=== PATIENT | female | born 1950 | race Caucasian/White ===

== ENCOUNTER 2022-12-21 08:34 | Outpatient (OUT) | payer MEDICARE, OTHER, SELFPAY ==
[2022-12-21 09:27] LABS: Basophils Percent Auto 0.4 % (0.2-2.0); Eosinophils Absolute Auto 0.5 10^3/uL (0.0-0.7); Eosinophils Percent Auto 6.6 % (0.9-7.0); Hematocrit 36.4 % (36.0-48.0); Hemoglobin 10.9 g/dL (12.0-16.0); Immature Granulocytes Abs Auto 0.02 10^3/uL (0.00-0.03); Immature Granulocytes Pct Auto 0.3 % (0.0-0.5); Lymphocytes Absolute Auto 2.6 10^3/uL (1.2-3.8); Lymphocytes Percent Auto 33.1 % (20.5-60.0); Mean Corpuscular HGB Conc 29.9 g/dL (29.9-35.2); Mean Corpuscular Hemoglobin 25.7 pg (26.7-34.0); Mean Corpuscular Volume 85.8 fL (81.0-99.0); Mean Platelet Volume 9.3 fL (9.5-13.5); Monocytes Absolute Auto 0.7 10^3/uL (0.3-0.8); Monocytes Percent Auto 9.1 % (1.7-12.0); Neutrophils Percent Auto 50.5 % (43.0-75.0); Platelet Count 426 10^3/uL (150-450); Red Blood Count 4.24 10^6/uL (4.20-5.40); Red Cell Distribution Width 16.4 % (11.0-15.0); White Blood Count 7.9 10^3/uL (4.0-11.0)
[2022-12-21 10:49] LABS: Microalbumin Urine Random <1.3 mg/dL (<=30.0)
[2022-12-21 10:49] LABS: Estimated Average Glucose 123 mg/dL; Glycohemoglobin A1C 5.9 % (4.5-6.2)
[2022-12-21 11:06] LABS: Free T4 0.81 ng/dL (0.76-1.46)
[2022-12-21 14:36] LABS: Alanine Aminotransferase 33 U/L (14-59); Albumin Level 3.6 g/dL (3.4-5.0); Alkaline Phosphatase 90 U/L (46-116); Anion Gap 12.6; Aspartate Amino Transferase 16 U/L (15-37); BUN Creatinine Ratio 13.4; Bilirubin Total 0.2 mg/dL (0.2-1.0); Calcium 8.6 mg/dL (8.5-10.1); Carbon Dioxide 27.5 mmol/L (21.0-32.0); Chloride 105 mmol/L (98-107); Chol HDL Ratio 2.3; Cholesterol 148 mg/dL (<=200); Estimated GFR (African America >60 (>=60); Estimated GFR (Non-African Ame >60 (>=60); Free T3 2.51 pg/mL (2.18-3.98); Globulin 3.5 g/dL; Glucose 109 mg/dL (74-106); HDL Cholesterol 64 mg/dL (40-60); Potassium 4.1 mmol/L (3.5-5.1); Sodium 141 mmol/L (136-145); Thyroid Stimulating Hormone 0.056 uIU/mL (0.358-3.740); Total Protein 7.1 g/dL (6.4-8.2); Triglycerides 62 mg/dL (<=150); VLDL CHOLESTEROL 12.4 mg/dL
== END 2022-12-21 08:35 ==
PROVIDERS: PCP Internal Medicine; Visit Provider Internal Medicine
DX: E89.0 Postprocedural hypothyroidism (principal); E11.3211 Type 2 diabetes mellitus with mild nonproliferative diabetic retinopathy with macular edema, right eye; E78.00 Pure hypercholesterolemia, unspecified
CPT/HCPCS: 36415; 80053; 80061; 82043; 83036; 84439; 84443; 84481; 85025

== ENCOUNTER 2023-06-26 08:07 | Outpatient (OUT) | payer MEDICARE, OTHER, SELFPAY ==
[2023-06-26 09:32] LABS: Percent Iron Saturation 22.5 %
[2023-06-26 09:41] LABS: TSH W/ REFLEX FT4 0.107 (0.358-3.740)
[2023-06-26 11:06] LABS: Free T4 1.17 ng/dL (0.76-1.46)
[2023-06-27 04:07] LABS: Transferrin 255 mg/dL (192-364); Triiodothyronine (T3) 192 ng/dL (71-180)
== END 2023-06-26 08:08 | disposition home or self-care (01) ==
LOC: LAB 08:08
PROVIDERS: PCP Internal Medicine
DX: D64.9 Anemia, unspecified (principal)
CPT/HCPCS: 36415; 82306; 82607; 83540; 83550; 84439; 84443; 84466; 84480

== ENCOUNTER 2023-06-26 08:09 | Outpatient (OUT) | payer MEDICARE, OTHER, SELFPAY ==
[2023-06-26 08:31] LABS: Basophils Percent Auto 0.5 % (0.2-2.0); Eosinophils Absolute Auto 0.5 10^3/uL (0.0-0.7); Eosinophils Percent Auto 6.9 % (0.9-7.0); Hematocrit 40.5 % (36.0-48.0); Hemoglobin 12.7 g/dL (12.0-16.0); Immature Granulocytes Abs Auto 0.02 10^3/uL (0.00-0.03); Immature Granulocytes Pct Auto 0.3 % (0.0-0.5); Lymphocytes Absolute Auto 2.8 10^3/uL (1.2-3.8); Lymphocytes Percent Auto 37.8 % (20.5-60.0); Mean Corpuscular HGB Conc 31.4 g/dL (29.9-35.2); Mean Corpuscular Hemoglobin 29.9 pg (26.7-34.0); Mean Corpuscular Volume 95.3 fL (81.0-99.0); Monocytes Absolute Auto 0.7 10^3/uL (0.3-0.8); Monocytes Percent Auto 8.7 % (1.7-12.0); Neutrophils Absolute Auto 3.4 10^3/uL (1.4-6.5); Neutrophils Percent Auto 45.8 % (43.0-75.0); Platelet Count 334 10^3/uL (150-450); Red Blood Count 4.25 10^6/uL (4.20-5.40); Red Cell Distribution Width 14.7 % (11.0-15.0); White Blood Count 7.4 10^3/uL (4.0-11.0)
[2023-06-26 09:24] LABS: Estimated Average Glucose 126 mg/dL
[2023-06-26 09:30] LABS: Creatinine Urine Random 54.94 mg/dL (20.00-300.00); Microalbumin Urine Random <1.3 mg/dL (<=30.0)
[2023-06-26 09:30] LABS: Alanine Aminotransferase 29 U/L (14-59); Albumin Globulin Ratio 1.1; Albumin Level 3.6 g/dL (3.4-5.0); Alkaline Phosphatase 65 U/L (46-116); Anion Gap 10.9; Aspartate Amino Transferase 18 U/L (15-37); Bilirubin Total 0.6 mg/dL (0.2-1.0); Calcium 8.9 mg/dL (8.5-10.1); Carbon Dioxide 29.8 mmol/L (21.0-32.0); Chloride 101 mmol/L (98-107); Chol HDL Ratio 2.2; Cholesterol 132 mg/dL (<=200); Estimated GFR (African America >60 (>=60); Estimated GFR (Non-African Ame >60 (>=60); Globulin 3.2 g/dL; Glucose 85 mg/dL (74-106); HDL Cholesterol 61 mg/dL (40-60); Potassium 3.7 mmol/L (3.5-5.1); Sodium 138 mmol/L (136-145); Total Protein 6.8 g/dL (6.4-8.2); Triglycerides 57 mg/dL (<=150); VLDL CHOLESTEROL 11.4 mg/dL
== END 2023-06-26 08:10 | disposition home or self-care (01) ==
LOC: LAB 08:09
PROVIDERS: PCP Internal Medicine; Visit Provider Internal Medicine
DX: D64.9 Anemia, unspecified (principal); E11.618 Type 2 diabetes mellitus with other diabetic arthropathy; D50.0 Iron deficiency anemia secondary to blood loss (chronic)
CPT/HCPCS: 36415; 80053; 80061; 82043; 82306; 82570; 82607; 82728; 83036; 83540; 83550; 84439; 84443; 84466; 84480; 85025

== ENCOUNTER 2023-10-31 09:52 | Outpatient (OUT) | payer MEDICARE, SELFPAY ==
[2023-10-31 10:30] LABS: Basophils Absolute Auto 0.1 10^3/uL (0.0-0.1); Basophils Percent Auto 0.6 % (0.2-2.0); Eosinophils Absolute Auto 1.3 10^3/uL (0.0-0.7); Eosinophils Percent Auto 15.7 % (0.9-7.0); Hematocrit 42.7 % (36.0-48.0); Hemoglobin 13.3 g/dL (12.0-16.0); Immature Granulocytes Abs Auto 0.03 10^3/uL (0.00-0.03); Immature Granulocytes Pct Auto 0.4 % (0.0-0.5); Lymphocytes Absolute Auto 2.6 10^3/uL (1.2-3.8); Lymphocytes Percent Auto 31.9 % (20.5-60.0); Mean Corpuscular HGB Conc 31.1 g/dL (29.9-35.2); Mean Corpuscular Hemoglobin 30.7 pg (26.7-34.0); Mean Corpuscular Volume 98.6 fL (81.0-99.0); Mean Platelet Volume 9.1 fL (9.5-13.5); Monocytes Absolute Auto 0.6 10^3/uL (0.3-0.8); Monocytes Percent Auto 7.3 % (1.7-12.0); Neutrophils Absolute Auto 3.6 10^3/uL (1.4-6.5); Neutrophils Percent Auto 44.1 % (43.0-75.0); Platelet Count 329 10^3/uL (150-450); Red Blood Count 4.33 10^6/uL (4.20-5.40); Red Cell Distribution Width 13.4 % (11.0-15.0); White Blood Count 8.2 10^3/uL (4.0-11.0)
[2023-10-31 11:48] LABS: Estimated Average Glucose 114 mg/dL; Glycohemoglobin A1C 5.6 % (4.5-6.2)
[2023-10-31 12:07] LABS: Creatinine Urine Random 105.02 mg/dL (20.00-300.00); Microalbum Creatinine Ratio Ur 15.2 mg/g (0.0-29.9); Microalbumin Urine Random 1.6 mg/dL (<=30.0)
[2023-10-31 12:08] LABS: Free T4 1.05 ng/dL (0.76-1.46)
[2023-10-31 12:17] LABS: Alanine Aminotransferase 23 U/L (14-59); Albumin Globulin Ratio 1.1; Albumin Level 3.4 g/dL (3.4-5.0); Alkaline Phosphatase 76 U/L (46-116); Anion Gap 10.3; Aspartate Amino Transferase 14 U/L (15-37); BUN Creatinine Ratio 10.8; Bilirubin Total 0.5 mg/dL (0.2-1.0); Calcium 9.1 mg/dL (8.5-10.1); Carbon Dioxide 31.2 mmol/L (21.0-32.0); Chloride 107 mmol/L (98-107); Chol HDL Ratio 2.4; Cholesterol 151 mg/dL (<=200); Estimated GFR (African America >60 (>=60); Estimated GFR (Non-African Ame >60 (>=60); Free T3 2.59 pg/mL (2.18-3.98); Globulin 3.2 g/dL; Glucose 91 mg/dL (74-106); HDL Cholesterol 64 mg/dL (40-60); Potassium 4.5 mmol/L (3.5-5.1); Sodium 144 mmol/L (136-145); Thyroid Stimulating Hormone 0.169 uIU/mL (0.358-3.740); Total Protein 6.6 g/dL (6.4-8.2); Triglycerides 78 mg/dL (<=150); VLDL CHOLESTEROL 15.6 mg/dL
== END 2023-10-31 09:53 | disposition home or self-care (01) ==
LOC: LAB 09:55
PROVIDERS: PCP Internal Medicine; Visit Provider Internal Medicine
DX: E89.0 Postprocedural hypothyroidism (principal); E11.618 Type 2 diabetes mellitus with other diabetic arthropathy; E78.01 Familial hypercholesterolemia; Z79.4 Long term (current) use of insulin; E11.610 Type 2 diabetes mellitus with diabetic neuropathic arthropathy
CPT/HCPCS: 36415; 80053; 80061; 82043; 82570; 83036; 84439; 84443; 84481; 85025

== ENCOUNTER 2023-11-03 21:32 | Emergency (ER) | payer MEDICARE, SELFPAY ==
[2023-11-03 21:37] VITALS: BP 143/90; PULSE 77; TEMP 36.9; O2SAT 96; BMI 25.8
--- OUTSIDE RECORDS SUMMARY | 2023-11-03 21:46 | XMS_ITS | CCD ---
Author Organization [facility] Care Team Providers Care 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 Name Role Phone Velasquez Lam Unavailable DO Luisa Kim Primary Care Provider MD Velasquez Lam Attending Provider JULIO, DR MORAN Primary Care Unavailable JULIO, DR MORAN Admitting Unavailable JULIO, DR MORAN Attending Unavailable JULIO, DR MORAN Consulting Unavailable JULIO, DR MORAN Primary Care Unavailable ISABELLE MOON Consulting Unavailable HERMES, DR DAO Attending Unavailable HERMES, DR DAO Admitting Unavailable MALAIKA NORTH Consulting Unavailable BERKLEY GALINDO Consulting Unavailable JULIO, DR MORAN Primary Care Unavailable LENORA CABRERA Attending Unavailable DEBORAH, LENORA Admitting Unavailable LAN, DR MEME Saunders Consulting Unavailable LENORA CABRERA Consulting Unavailable JULIO, DR MORAN Primary Care Unavailable JULIO, DR MORAN Admitting Unavailable JULIO, DR MORAN Attending Unavailable JULIO, DR MORAN Consulting Unavailable JULIO, DR MORAN Primary Care Unavailable JULIO, DR MORAN Admitting Unavailable JULIO, DR MORAN Attending Unavailable JULIO, DR MORAN Consulting Unavailable DO Luisa Kim Primary Care Provider [phone] MD Velasquez Lam Attending Provider DO Luisa Kim Primary Care Provider ANGEL Valladares Attending Provider Dr. Jairo Downs Primary Care Unavailable DO Luisa Kim Primary Care Provider [phone] RG Alonzo Attending Provider Meme Gong Unavailable Meme Gong Attending Unavailable Meme Gong Admitting Unavailable Luisa Kim Primary Care Unavailable Luisa Kim Primary Care Unavailable Ning Valladares Attending Unavail able Ning Valladares Admitting Unavail able Luisa Kim Primary Care Unavailable José Alonzo Attending Unavailable José Alonzo Admitting Unavailable Luisa Kim DO Unavailable Meme Gong MD Unavailable Luisa Kim DO Primary Care Provider CRISTOFER OLIVA Referring Unavailable AUGUSTA SURESH Attending Unavailable CRISTOFER OLIVA Referring Unavailable ANG, MARQUIS Contreras Attending Unavailable ANG, MARQUIS Contreras Referring Unavailable NUHA, MEME Gunderson Attending Unavailable ANG, MARQUIS Contreras Referring Unavailable NUHA, MEME Gunderson Attending Unavailable ANG, MARQUIS Contreras Referring Unavailable NUHA, MEME Gunderson Attending Unavailable ANG, MARQUIS Contreras Referring Unavailable NUHA, MEME Gunderson Attending Unavailable ANG, MARQUIS Contreras Referring Unavailable NUHA, MEME Gunderson Attending Unavailable ANG, MARQUIS Contreras Referring Unavailable NUHA, MEME Gunderson Attending Unavailable ANG, MARQUIS Contreras Referring Unavailable NUHA, MEME Gunderson Attending Unavailable ANG, MARQUIS Contreras Referring Unavailable NUHA, MEME Gunderson Attending Unavailable ANG, MARQUIS Contreras Referring Unavailable ANG, MARQUIS Contreras Attending Unavailable NUHA, MEME Gunderson Attending Unavailable ANG, MARQUIS Contreras Referring Unavailable NUHA, MEME Gunderson Attending Unavailable ANG, MARQUIS Contreras Referring Unavailable NUHA, MEME Gunderson Attending Unavailable ANG, MARQUIS Contreras Referring Unavailable SAILAJA VILLA Attending Unavailable LUISA KIM Attending Unavailable Allergies Allergy Classification Reported Allergen(s) Allergy Type Date of Onset Reaction(s) Facility (6 sources) buPROPion Drug Allergy 03-20-2023 [facility] Medications Current Medications Medication Drug Class(es) Dates Sig (Normalized) Sig (Original) ascorbic acid 1000 mg oral tablet (6 sources) Vitamin C Ascorbic Acid (vitamin C) 1000 MG tablet 1 (one) time each day at the same time. 0 Active atorvastatin 40 mg oral tablet (13 sources) HMG-CoA Reductase Inhibitor Start: 08-11-2023 take 1 tablet by mouth in the morning atorvastatin (Lipitor) 40 MG tablet Indications: LDL (low density lipoprotein receptor disorder) (CMS/HCC) Take 1 tablet (40 mg) by mouth in the morning. 90 tablet 3 08/11/2023 Active Start: 12-10-2021 take 40 mg by mouth once daily Atorvastatin Active 40 MG PO Daily December 10, 2021 12:00am Berberine Complex (4 sources) Berberine Comple x Active betamethasone 0.0005 mg/mg topical ointment (6 sources) Corticosteroid Start: 06-24-2023 betamethasone dipropionate (Diprolene) 0.05 % ointment Indications: Other atopic dermatitis Apply to affected areas, up to twice a day when flared, do not use one the face, groin, or underarms, 30 day supply 45 g 11 06/24/2023 Active busPIRone hydrochloride 5 mg oral tablet (7 sources) Start: 08-06-2023 End: 08-05-2024 busPIRone (Buspar) 5 MG tablet Indications: Anxiety Take 1 tablet (5 mg) by mouth in the morning and 1 tablet (5 mg) at noon and 1 tablet (5 mg) in the evening and 1 tablet (5 mg) before bedtime. 360 tablet 3 08/06/2023 08/05/2024 Active busPIRone HCl 5 MG Oral for 10 Days Active cyclobenzaprine hydrochloride 5 mg oral tablet (6 sources) Muscle Relaxant Start: 08-11-2023 take 1 tablet by mouth in the morning cyclobenzaprine (Flexeril) 5 MG tablet Indications: Muscle spasm Take 1 tablet (5 mg) by mouth in the morning and 1 tablet (5 mg) before bedtime. 180 tablet 3 08/11/2023 Active estrogens, conjugated (mcfp) 0.625 mg/ml vaginal cream (2 sources) Estrogen Start: 07-17-2023 Estrogens Conjugated (Premarin) 0.625 MG/GM cream Indications: Menopause , Vaginal dryness, menopausal Insert 0.5 g into the vagina in the morning. Use daily x2 weeks then use 2 times weekly. 30 g 3 07/17/2023 Active fluocinonide 0.5 mg/ml topical solution (6 sources) Corticosteroid Start: 06-24-2023 fluocinonide (Lidex) 0.05 % external solution Indications: Lichen plano-pilaris Apply to affected areas on the scalp qd, 30 day supply 60 mL 11 06/24/2023 Active fluticasone propionate 0.05 mg/actuat metered dose nasal spray (6 sources) Corticosteroid Start: 05-05-2018 take 2 spray(s) nasal route once daily as needed fluticasone (Flonase) 50 MCG/ACT nasal spray 2 sprays in each nostril Nasally daily as needed for 90 days 0 05/05/2018 Active hydrocortisone acetate 25 mg rectal suppository (8 sources) Corticosteroid Start: 07-30-2023 End: 07-29-2024 hydrocortisone (Anusol-HC) 25 MG suppository Indications: Hemorrhoids, unspecified hemorrhoid type Insert 1 suppository (25 mg) into the rectum 4 (four) times a day as needed for hemorrhoids 30 suppository 1 07/30/2023 07/29/2024 Active Start: 07-18-2023 hydrocortisone (Anusol-HC) 2.5 % rectal cream Indications: Hemorrhoids, unspecified hemorrhoid type Insert into the rectum 4 (four) times a day as needed for hemorrhoids 28 g 3 07/18/2023 Active ibuprofen 800 mg oral tablet (6 sources) Nonsteroidal Anti-inflammatory Drug Start: 01-19-2020 ibuprofen 800 MG tablet every 8 (eight) hours. 0 01/19/2020 Active levothyroxine sodium 0.1 mg oral tablet (16 sources) l-Thyroxine Start: 08-11-2023 take 1 tablet by mouth before mealtime levothyroxine (Synthroid, Levoxyl) 100 MCG tablet Indications: Postoperative hypothyroidism (CMS/HCC) Take 1 tablet (100 mcg) by mouth in the morning. Take before meals. 90 tablet 3 08/11/2023 Active Start: 12-10-2021 take 1 tablet by alec once daily Levothyroxine (Synthroid) 100 mcg tablet Active 100 MCG PO Daily December 10, 2021 12:00am Synthroid Active liothyronine sodium 0.005 mg oral tablet (16 sources) l-Triiodothyronine Start: 12-10-2021 take 10 ug by mouth once daily Liothyronine Active 10 MCG PO Daily December 10, 2021 12:00am take 1 tablet by mouth in the mo rning liothyronine (Cytomel) 5 MCG tablet Take 5 mcg by mouth in the morning. 0 Active Cytomel Active lisinopril 10 mg oral tablet (13 sources) Angiotensin Converting Enzyme Inhibitor Start: 08-11-2023 take 1 tablet by mouth in the morning lisinopril 10 MG tablet Indications: Primary hypertension (CMS/HCC) Take 1 tablet (10 mg) by mouth in the morning. 90 tablet 3 08/11/2023 Active Start: 12-10-2021 take 10 mg by mouth once daily Lisinopril Active 10 MG PO Daily December 10, 2021 12:00am magnesium oxide 500 mg oral capsule (6 sources) take 1 capsule by mouth once daily Magnesium 500 MG capsule Take 500 mg by mouth 1 (one) time each day at the same time. 0 Active metFORMIN hydrochloride 500 mg oral tablet (13 sources) Biguanide Start: take 1 tablet by mouth at mealtime metFORMIN (Glucophage) 500 MG tablet Indications: Type 2 diabetes mellitus with diabetic neuropathic arthropathy, without long-term current use of insulin (CMS/HCC) Take 1 tablet (500 mg) by mouth in the morning. Take with meals. 180 tablet 3 07/02/2023 Active methocarbamol 750 mg oral tablet (4 sources) Muscle Relaxant Start: take 1 tablet by mouth twice daily Methocarbamol 750 MG 1 tablet Orally up to twice a day for 7 days Feb, Active naproxen sodium 220 mg oral tablet (4 sources) Nonsteroidal Anti-inflammatory Drug take 1 tablet by mouth every twelve hours at mealtime as needed Aleve 220 MG 1 tablet with food or milk as needed Orally every 12 hrs Active pantoprazole 40 mg delayed release oral tablet (7 sources) Proton Pump Inhibitor Start: take 1 tablet by mouth before mealtime pantoprazole (Protonix) 40 MG EC tablet Indications: Gastroesophageal reflux disease, unspecified whether esophagitis present Take 1 tablet (40 mg) by mouth in the morning. Take before meals. 90 tablet 3 08/11/2023 Active Pantoprazole Sod ium 40 MG Oral for 90 Days Active semaglutide (Ozempic, 1 MG/DOSE,) 4 MG/3ML solution pen-injector (6 sources) Start: 06-21-2022 inject 1 mg by subcutaneous injection every week semaglutide (Ozempic, 1 MG/DOSE,) 4 MG/3ML solution pen-injector as directed Subcutaneous once weekly for 30 days 0 06/21/2022 Active traZODone hydrochloride 50 mg oral tablet (7 sources) Serotonin Reuptake Inhibitor Start: 08-11-2023 End: 08-10-2024 traZODone (Desyrel) 50 MG tablet Indications: Current severe episode of major depressive disorder without psychotic features without prior episode (CMS/HCC) TAKE 1 TABLET AT BEDTIME 90 tablet 3 09/02/2023 Active traZODone HCl 50 MG Oral for 90 Days Active valACYclovir 1000 mg oral tablet (6 sources) Herpesvirus Nucleoside Analog DNA Polymerase Inhibitor, Herpes Simplex Virus Nucleoside Analog DNA Polymerase Inhibitor, Herpes Zoster Virus Nucleoside Analog DNA Polymerase Inhibitor Start: 2020 valACYclovir (Valtrex) 1 g tablet take 2 tablets, repeat in 12 hours Orally 2 times for 2 days 0 2020 Active 24 hr venlafaxine 150 mg extended release oral capsule (13 sources) Serotonin and Norepinephrine Reuptake Inhibitor Start: 08-11-2023 take 1 capsule by mouth every twenty-four hours in the morning venlafaxine XR (Effexor XR) 150 MG 24 hr capsule Indications: Anxiety Take 1 capsule (150 mg) by mouth in the morning. Do not crush or chew.. 90 capsule 3 08/11/2023 Active Start: 12-10-2021 take 1 capsule by [facility] once daily Venlafaxine (Effexor Xr) 150 mg Capsule,Extended Release 24hr Active 150 MG PO Daily December 10, 2021 12:00am VITAMIN D-VITAMIN K PO (6 sources) VITAMIN D-VITAMI N K PO as directed Orally 0 Active Completed/Discontinued Medications Medication Drug Class(es) Dates Sig (Normalized) Sig (Original) amitriptyline hydrochloride 25 mg oral tablet (4 sources) Tricyclic Antidepressant take 1 tablet by mouth every twenty-four hours Amitriptyline HCl 25 MG 1 tablet Orally Once a day Not-Taking/PRN amoxicillin 875 mg / clavulanate 125 mg oral tablet (4 sources) Penicillin-class Antibacterial Start: 11-04-2018 take 1 tablet by mouth every twelve hours Amoxicillin-Pot Clavulanate 875-125 MG 1 tablet Orally every 12 hrs for 10 day(s) Oct, Not-Taking/PRN cefTRIAXone (4 sources) Cephalosporin Antibacterial Start: 11-04-2018 Rocephin 500 mg Oct, 1000 mg fluconazole 150 mg oral tablet (4 sources) Azole Antifungal Start: 11-10-2018 Diflucan 150 MG 1 tablet Orally Take 1 tablet today, then take 1 tablet again in 3 days for 2 days Oct, Not-Taking/PRN Problems Active Problems Problem Classification Problem Date Documented Date Episodic/Chronic Anxiety disorders (12 sources) Anxiety; Translations: [Anxiety disorder, unspecified] Onset: 07-16-2017 Resolved: 07-02-2023 04-22-2023 Chronic Asthma (6 sources) Mild intermittent asthma; Translations: [Mild intermittent asthma, uncomplicated] Onset: 09-04-2020 12-26-2022 Chronic Cancer of thyroid (11 sources) Malignant neoplasm of thyroid gland; Translations: [Papillary thyroid carcinoma] Onset: 09-04-2020 Chronic Complications of surgical procedures or medical care (10 sources) Postprocedural hypothyroidism; Translations: [Postoperative hypothyroidism] Onset: 07-16-2017 Chronic Deficiency and other anemia (6 sources) Iron deficiency anemia due to blood loss; Translations: [Iron deficiency anemia secondary to blood loss (chronic)] Onset: 01-13-2023 01-13-2023 Chronic Diabetes mellitus with complications (13 sources) Type 2 diabetes mellitus with other specified complication; Translations: [Arthropathy due to type 2 diabetes mellitus] Onset: 02-12-2022 Resolved: 01-13-2023 01-13-2023 Chronic Diseases of mouth; excluding dental (1 source) Dry mouth, unspecified Episodic Disorders of lipid metabolism (13 sources) Pure hypercholesterolemia, unspecified; Translations: [Familial hypercholesterolemia] Onset: 06-07-2016 Resolved: 02-26-2023 12-26-2022 Chronic Diverticulosis and diverticulitis (12 sources) Diverticulosis of colon; Translations: [Diverticulosis of large intestine without perforation or abscess without bleeding] Onset: 09-04-2020 12-26-2022 Chronic Esophageal disorders (20 sources) Gastroesophageal reflux disease; Translations: [Gastro-esophageal reflux disease without esophagitis] Onset: 08-25-2019 12-10-2021 Chronic Essential hypertension (6 sources) Essential hypertension; Translations: [Essential (primary) hypertension] Onset: 12-26-2022 12-26-2022 Chronic Joint disorders and dislocations; trauma-related (2 sources) Unspecified subluxation of unspecified shoulder joint, initial encounter Onset: 03-11-2022 Resolved: 03-11-2022 Episodic Osteoarthritis (13 sources) Bilateral primary osteoarthritis of knee; Translations: [Osteoarthritis] Onset: 02-02-2020 Resolved: 02-26-2023 12-26-2022 Chronic Osteoporosis (7 sources) Age-related osteoporosis without current pathological fracture; Translations: [Senile osteoporosis] Onset: 09-09-2019 12-26-2022 Chronic Other acquired deformities (6 sources) Scoliosis deformity of spine; Translations: [Scoliosis, unspecified] Onset: 06-22-2015 12-26-2022 Chronic Other and ill-defined heart disease (6 sources) Left ventricular hypertrophy; Translations: [Cardiomegaly] Onset: 01-13-2023 01-13-2023 Chronic Other bone disease and musculoskeletal deformities (4 sources) Idiopathic scoliosis of thoracic and lumbar spine; Translations: [Other idiopathic scoliosis, thoracolumbar region] 08-22-2023 Chronic Other connective tissue disease (3 sources) Supraspinatus tear; Translations: [Unspecified rotator cuff tear or rupture of right shoulder, not specified as traumatic] Episodic Other connective tissue disease (2 sources) Unspecified rotator cuff tear or rupture of right shoulder, not specified as traumatic Onset: 03-11-2022 Resolved: 03-11-2022 Episodic Other non-traumatic joint disorders (4 sources) Derangement of right shoulder joint; Translations: [Other specific joint derangements of right shoulder, not elsewhere classified] Chronic Other non-traumatic joint disorders (1 source) Other specific joint derangements of right shoulder, not elsewhere classified Onset: 02-19-2022 Resolved: 02-19-2022 Chronic Other non-traumatic joint disorders (4 sources) Pain in right shoulder; Translations: [PAIN IN RIGHT SHOULDER] Onset: 02-01-2022 Episodic Other nutritional; endocrine; and metabolic disorders (6 sources) Obesity caused by energy imbalance; Translations: [Other obesity due to excess calories] Onset: 09-04-2020 12-26-2022 Chronic Other nutritional; endocrine; and metabolic disorders (1 source) Body mass index (BMI) 26.0-26.9, adult Episodic Other screening for suspected conditions (not mental disorders or infectious disease) (18 sources) Patient encounter status; Translations: [Encounter for screening for malignant neoplasm of colon] Onset: 07-02-2023 12-10-2021 Episodic Residual codes; unclassified (5 sources) Obstructive sleep apnea (adult) (pediatric); Translations: [OBSTRUCTIVE SLEEP APNEA] Onset: 02-08-2022 Chronic Residual codes; unclassified (7 sources) Obstructive sleep apnea syndrome; Translations: [Obstructive sleep apnea (adult) (pediatric)] Onset: 11-19-2017 12-26-2022 Chronic Residual codes; unclassified (1 source) Obstructive sleep apnea (adult)(pediatric); Translations: [Obstructive sleep apnea (adult) (pediatric)] Onset: 07-02-2023 Chronic Spondylosis; intervertebral disc disorders; other back problems (6 sources) Lumbar arthritis; Translations: [Spondylosis without myelopathy or radiculopathy, lumbar region] Onset: 12-26-2022 12-26-2022 Chronic Spondylosis; intervertebral disc disorders; other back problems (10 sources) Acute low back pain; Translations: [Acute left-sided low back pain without sciatica] 08-22-2023 Episodic Sprains and strains (2 sources) Strain of other muscles, fascia and tendons at shoulder and upper arm level, right arm, initial encounter Onset: 03-11-2022 Resolved: 03-11-2022 Episodic Superficial injury; contusion (7 sources) Contusion of right shoulder, initial encounter; Translations: [Contusion of right hip, initial encounter] Onset: 10-19-2021 Episodic Unclassified (1 source) Low back pain, unspecified; Translations: [Low back pain, unspecified] Onset: 02-24-2023 Past or Other Problems Problem Classification Problem Date Documented Da te Episodic/Chronic Blindness and vision defects (6 sources) Presbyopia; Translations: [Presbyopia] Onset: 06-15-2019 12-26-2022 Episodic Cancer of thyroid (6 sources) History of malignant neoplasm of thyroid; Translations: [Personal history of malignant neoplasm of thyroid] Onset: 09-04-2020 12-26-2022 Episodic Deficiency and other anemia (6 sources) Anemia; Translations: [Anemia, unspecified] Onset: 12-26-2022 12-26-2022 Episodic Diabetes mellitus without complication (7 sources) Type 2 diabetes mellitus without complications; Translations: [Type 2 diabetes mellitus without complication] Onset: 09-15-2020 Resolved: 01-13-2023 01-13-2023 Chronic E Codes: Fall (1 source) Fall on same level from slipping, tripping and stumbling without subsequent striking against object, initial encounter; Translations: [FALL SAME LVL SLIP NO STRK OBJ INIT] Onset: 02-05-2022 Episodic Fracture of upper limb (1 source) Fracture of unspecified part of right clavicle, initial encounter for closed fracture; Translations: [FX UNS PRT RT CLAV INITIAL CLOS FX] Onset: 02-05-2022 Episodic Heart valve disorders (1 source) Cardiac murmur, unspecified; Translations: [Cardiac murmur, unspecified] Onset: 01-03-2023 Episodic Hemorrhoids (6 sources) External hemorrhoids; Translations: [Residual hemorrhoidal skin tags] Onset: 12-24-2017 12-26-2022 Episodic Mood disorders (6 sources) Severe major depression, single episode, without psychotic features; Translations: [Major depressive disorder, single episode, severe without psychotic features] Onset: 03-20-2023 Resolved: 07-02-2023 07-02-2023 Chronic Mood disorders (6 sources) Mood disorders Onset: 07-02-2023 07-02-2023 Nutritional deficiencies (7 sources) Vitamin D deficiency, unspecified; Translations: [Vitamin D deficiency] Onset: 08-03-2018 Resolved: 02-26-2023 02-26-2023 Chronic Other aftercare (1 source) 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; Translations: [OTH DETENTION CURRENT DRUG THERAPY] Onset: 02-05-2022 Episodic Other aftercare (1 source) superintendent marine oil terminal (current) use of oral hypoglycemic drugs; Translations: [TARIFF INSPECTOR USE ORAL HYPOGLYCEMIC DX] Onset: 02-05-2022 Episodic Other and unspecified benign neoplasm (6 sources) Benign neoplasm of colon; Translations: [Benign neoplasm of colon, unspecified] Onset: 09-04-2020 12-26-2022 Episodic Other fractures (2 sources) Displaced fracture of lateral end of right clavicle, subsequent encounter for fracture with routine healing Onset: 02-19-2022 Resolved: 03-11-2022 Episodic Other gastrointestinal disorders (6 sources) Constipation; Translations: [Constipation, unspecified] Onset: 12-26-2022 12-26-2022 Episodic Other injuries and conditions due to external causes (1 source) Other specified injuries of head, initial encounter; Translations: [OTH SPEC INJURIES HEAD INITIAL ENC] Onset: 02-05-2022 Episodic Other injuries and conditions due to external causes (6 sources) Injury of right knee; Translations: [Unspecified injury of right lower leg, initial encounter] Onset: 12-26-2022 12-26-2022 Episodic Other injuries and conditions due to external causes (6 sources) Injury of left knee; Translations: [Unspecified injury of left lower leg, initial encounter] Onset: 12-30-2022 12-30-2022 Episodic Residual codes; unclassified (6 sources) Unspecified donor, other blood; Translations: [Other blood donors] Onset: 02-26-2023 02-26-2023 Episodic Viral infection (6 sources) Postherpetic neuralgia; Translations: [Other postherpetic nervous system involvement] Onset: 06-22-2015 12-26-2022 Episodic Results Test Name Value Interpretation Reference Range Facility BI MAMMOGRAM SCREENING TOMOS YNTHESIS BILATERALon 07-17-2023 BI MAMMOGRAM SCREENING TOMOSYNTHESIS BILATERAL This is a summary report. The complete report is available in the patient's medical record. If you cannot access the medical record, please contact the sending organization for a detailed fax or copy. EXAMINATION: BI MAMMOGRAM SCREENING TOMOSYNTHESIS BILATERAL CLINICAL HISTORY: breast cancer screening COMPARISON: Priors dating back to 2019. RESULT: 3-D tomosynthesis imaging of the bilateral breast(s) was performed. Density: Heterogeneously dense [3] There are no suspicious masses or asymmetries, areas of architectural distortion or suspicious areas of microcalcifications. IMPRESSION: BIRADS 1 - Negative Recommended follow-up: Routine Screening Mamm Board Certified Radiologists. Accredited by the ACR and FDA. MAMMOGRAPHY IS VERY IMPORTANT TO YOUR HEALTH. THE [place] [employer] GUIDELINES RECOMMEND THAT WOMEN 40 YEARS OF AGE AND OLDER SHOULD HAVE A MAMMOGRAM EVERY YEAR. A REMINDER LETTER WILL BE SENT AT THE APPROPRIATE TIME. THIS FACILITY UTILIZES A REMINDER SYSTEM TO ENSURE ALL PATIENTS RECEIVE REMINDER NOTIFICATIONS AT THE APPROPRIATE TIME BASED ON THE RECOMMENDATIONS OF THIS EXAM. THIS INCLUDES REMINDERS FOR ROUTINE SCREENING MAMMOGRAMS, DIAGNOSTIC MAMMOGRAMS IN WHICH THE PATIENT IS ASKED TO RETURN FOR ADDITIONAL VIEWS, OR OTHER BREAST IMAGING INTERVENTIONS WHEN APPROPRIATE. THE PATIENT WILL BE PLACED IN THE APPROPRIATE REMINDER SYSTEM INCLUDING A REMINDER AT THE APPROPRIATE TIME FOR ANY PENDING ADDITIONAL VIEWS. ELECTRONICALLY SIGNED BY: Abhi Jefferson MD Normal Not Available [facility] echo transthoracicon [facility] echo transthoracic [facility] Main [place] [address] [place] [address] Echocardiogram Signed Patient: Christina Welsh MR#: [id number] : 1950 Acct:[id number] Age/Sex: 72 / F ADM Date: 01/03/23 Loc: Room: Type: [facility] Attending Dr: Ning ORTIZ Ordering Provider: Ning ORTIZ Date of Service: 01/03/23/ [facility] echo transthoracic: murmur. Copies to: Ning Ramos MD Weight: 180 lb Performed By: Chelsie Jaimes RDCS BSA: 1.9 m2 BP: 133/80 mmHg HR: 81 Reason For Study: murmur. History: HTN. HLD. DM. SAMANTHA. COVID-19. Former Smoker. Interpretation Summary Mild to moderate concentric left ventricular hypertrophy. A variety of Doppler measurements indicate impaired left ventricular relaxation, which is associated with grade I/IV or mild diastolic dysfunction. Ejection Fraction = 60-65%. Septal motion is consistent with conduction abnormality. The left atrium appears mildly dilated. There is trace tricuspid regurgitation. Mild plaque seen in the distal aortic arch The aortic valve is mildly calcified. There is no comparison study available. Procedure/Quality: A two-dimensional transthoracic echocardiogram with color flow and Doppler was performed. The study was technically good in quality. Left Ventricle: The left ventricular size is normal. Mild to moderate concentric left ventricular hypertrophy. Ejection Fraction = 60-65%. A variety of Doppler measurements indicate impaired left ventricular relaxation, which is associated with grade I/IV or mild diastolic dysfunction. Septal motion is consistent with conduction abnormality. Left Atrium: The left atrium appears mildly dilated. Right Atrium: The right atrium appears normal in size. Right Ventricle: The right ventricular size, thickness and function are normal. Aortic Valve: The aortic valve is mildly calcified. No aortic regurgitation is present. Mitral Valve: The mitral valve is normal in structure and function. There is no mitral regurgitation noted. Tricuspid Valve: The tricuspid valve is normal in structure and function. There is trace tricuspid regurgitation. Pulmonic Valve: The pulmonic valve is normal in structure and function. Arteries: The aortic root is normal size. Mild plaque seen in the distal aortic arch. Pericardium/Pleura: No pericardial effusion seen. There is no pleural effusion. IVC/Hepatic Viens: The inferior vena cava is normal in size, with a normal collapsibility index. Measurements with Normals IVSd: 1.7 cm (0.7-1.1 cm)LVIDd: 3.2 cm (3.7-5.4 cm) LVPWd: 1.4 cm (0.7-1.1 cm)LVIDs: 2.3 cm (2.3-3.6 cm) LA dimension: 4.1 cm (2.3-4.0 cm)Ao root diam: 2.9 cm(2.0-3.6 cm) asc Aorta Diam: 3.5 cm(2.1-3.4cm) Doppler with Normals RVSP(TR): 25.2 mmHg (18-35mmHg) LV V1 max: 184.5 cm/sec (0.7-1.7m/s)MV E max jose luis: 65.1 cm/sec(0.8-1.3m/s) MV A max jose luis: 113.2 cm/sec(0.0-0.0m/s) MV E/A: 0.57 (<1.5) MMode/2D Measurements Calculations TAPSE: 2.2 cm FS: 30.5 % Ao root area: LVOT diam: 2.1 cm RV S Jose Luis: EDV(Teich): 6.5 cm2 LVOT area: 3.5 cm2 15.9 cm/sec 42.4 ml ESV(Teich): 17.2 ml EF(Teich): 59.3 % __ LVLd ap4: 8.7 cm SV(MOD-sp4): LAV(MOD-sp4): LA A2 area: 17.4 cm2 EDV(MOD-sp4): 41.5 ml 38.7 ml 76.2 ml LAV(MOD-sp2): LA A4 area: 16.8 cm2 LVLs ap4: 7.3 cm 45.6 ml LA length (vol): ESV(MOD-sp4): 5.9 cm 34.7 ml LA vol: 42.1 ml EF(MOD-sp4): 54.5 % LA vol index: 22.2 ml/m2 Doppler Measurements Calculations MV dec time: E/E' lat: 11.7 MV dec slope: Ao V2 max: 0.18 sec E/E' med: 11.7 165.1 cm/sec 362.5 cm/sec2 Ao max P.9 mmHg Ao mean P.1 mmHg Ao V2 mean: 129.2 cm/sec Ao V2 VTI: 28.0 cm SHERI(I,D): 3.2 cm2 SHERI(V,D): 3.9 cm2 __ LV V1 max PG: TV max PG: TR max jose luis: 13.6 mmHg 22.0 mmHg 235.6 cm/sec LV V1 mean PG: TR max P.2 mmHg 8.3 mmHg RAP systole: 3.0 mmHg LV V1 mean: 139.1 cm/sec LV V1 VTI: 26.1 cm Transcribed By: BRUNO Performed At: 01/03/23 1557 Signed By: Adrianne Ramos MD 01/03/23 1638 [facility] FREE T3on 06-18-2022 FREE T3 2.83 pg/mlL Normal 2.18-3.98 [facility] Comment on above: Performed By: #### T SH, FT3, BMP ####[facility] [address] [place], [place] [address]DsDr. Mary Ellen Rolon FREE T4on 06-18-2022 Free T4 [Mass/Vol] 1.03 ng/dL Normal 0.76-1.46 [facility] Comment on above: Performed By: #### F T4 #### [facility] [address] [place], [place] [address] Dr. Mary Ellen Rolon GLYCOHEMOGLOBIN A1Con 2021 ADA RECOMMENDATION SEE BELOW Normal [facility] Comment on above: Result Comment: ADA RECOMMENDED LIMIT 4.0 - 6.0 ADA THERAPEUTIC TARGET < 7.0 ACTION SUGGESTED > 7.0 Performed By: #### A 1C ####[facility] [address] [place] [address]Dr. Mary Ellen Rolon Glucose [Mass/Vol] 137 mg/dL Normal [facility] Comment on above: Performed By: #### A 1C ####[facility] [address] [place] [address]Dr. Mary Ellen Rolon HbA1c (Bld) [Mass fraction] 6.4 % Critically high 4.5-6.2 [facility] Comment on above: Performed By: #### A 1C ####[facility] [address] [place], [place] [address]Dr. Mary Ellen Rolon PROF CHEM 8 (BAS METB)on Anion gap [Moles/Vol] 11.5 mmol/L Normal [facility] Comment on above: Performed By: #### T ISRAEL, FT3, BMP ####[facility] [address] [place] [address]Dr. Mary Ellen Rolon Calcium [Mass/Vol] 9.2 mg/dL Normal 8.5-10.1 [facility] Comment on above: Performed By: #### T ISRAEL, FT3, BMP ####[facility] [address] [place], [place] [address]Dr. Mary Ellen Rolon Chloride [Moles/Vol] 102 mmol/L Normal 98-107 [facility] Comment on above: Performed By: #### T ISRAEL, FT3, BMP ####[facility] [address] [place] [address]Dr. Mary Ellen Rolon CO2 [Moles/Vol] 29.5 mmol/L Normal 21.0-32.0 [facility] Comment on above: Performed By: #### T SH, FT3, BMP ####[facility] [address] [place] [address]Dr. Mary Ellen Rolon Creatinine [Mass/Vol] 0.66 mg/dL Normal 0.55-1.02 [facility] Comment on above: Performed By: #### T SH, FT3, BMP ####[facility] [address] [place] [address]Dr. Mary Ellen Rolon EGFR-AF MAL[place]IAN >60 Normal >=60 [facility] Comment on above: Performed By: #### T SH, FT3, BMP ####[facility] [address] [place] [id number]. Mary Ellen Rolon EGFR-NON AF [place] >60 Normal >=60 [facility] Comment on above: Performed By: #### T SH, FT3, BMP ####[facility] [address] [place] [address]Dr. Mary Ellen Rolon Glucose [Mass/Vol] 120 mg/dL Critically high 74-106 [facility] Comment on above: Performed By: #### T SH, FT3, BMP ####[facility] [address] [place] [address]Dr. Mary Ellen Rolon Potassium [Moles/Vol] 4.0 mmol/L Normal 3.5-5.1 [facility] Comment on above: Performed By: #### T SH, FT3, BMP ####[facility] [address] [place], [place] [address]Dr. Mary Ellen Rolon Sodium [Moles/Vol] 139 mmol/L Normal 136-145 [facility] Comment on above: Performed By: #### T SH, FT3, BMP ####[facility] [address] [place], [place] [address]Dr. Mary Ellen Rolon Urea nitrogen [Mass/Vol] 11.0 mg/dL Normal 7.0-18.0 [facility] Comment on above: Performed By: #### T SH, FT3, BMP ####[facility] [address] [place], [place] [address]Dr. Mary Ellen Rolon Urea nitrogen/Creatinine [Mass ratio] 16.7 mg/mg Normal [facility] Comment on above: Performed By: #### T SH, FT3, BMP ####[facility] [address] [place] [address]Dr. Mary Ellen Rolon TSHon 06-18-2022 TSH 0.734 uIU/mL Normal 0.358-3.740 [facility] Comment on above: Performed By: #### T SH, FT3, BMP ####[facility] [address] [place], [place] [address]Dr. Mary Ellen Rolon SCREENING MAMMOGRAM W/BERONICA, BILATERAL*on 04-02-2022 SCREENING MAMMOGRAM W/BERONICA, BILATERAL* CLINICAL HISTORY: Screening Mammogram COMPARISON: Priors dating back to 2015. TECHNIQUE: 2D and 3D mammogram imaging of both breasts was performed. RESULT: DENSITY: Heterogeneously dense, which may obscure small masses. There is no suspicious mass, asymmetry, architectural distortion, or calcification. No significant change since the prior mammograms. IMPRESSION: BIRADS 1 : NEGATIVE, NORMAL INTERVAL FOLLOW UP FOLLOW UP: 12 months DENSITY: Heterogeneously dense MAMMOGRAPHY IS VERY IMPORTANT TO YOUR HEALTH. THE CURRENT [place] [employer] GUIDELINES RECOMMENDS ANNUAL MAMMOGRAPHY BEGINNING AT AGE 42 THIS FACILITY USES A REMINDER SYSTEM TO ENSURE ALL PATIENTS RECEIVE REMINDER NOTIFICATIONS AT THE APPROPRIATE TIME BASED ON THE RECOMMENDATIONS OF THIS EXAM. Board Certified Radiologist. Accredited by the ACR and FDA. Report reported and signed by Abhi Jefferson on 04/02/2022 1442 Normal [facility] [employer] FREE T3on 02-08-2022 FREE T3 1.70 pg/mlL Critically low 2.18-3.98 [facility] Comment on above: Performed By: #### F T4, VITAD #### [facility] [address] [place] [address] [address] Mary Ellen Rolon GLYCOHEMOGLOBIN A1Con 2021 ADA RECOMMENDATION SEE BELOW Normal [facility] Comment on above: Result Comment: ADA RECOMMENDED LIMIT 4.0 - 6.0 ADA THERAPEUTIC TARGET < 7.0 ACTION SUGGESTED > 7.0 Performed By: #### A 1C #### [facility] [address] [place] [address] [address] Mary Ellen Rolon Glucose [Mass/Vol] 148 mg/dL Normal [facility] Comment on above: Performed By: #### A 1C #### [facility] [address] [place] [address] [address] Mary Ellen Rolon HbA1c (Bld) [Mass fraction] 6.8 % Critically high 4.5-6.2 [facility] Comment on above: Performed By: #### A 1C #### [facility] [address] [place], [place] [address] Dr. Mary Ellen Rolon LIPID PROFILEon 02-08-2022 CHOL-HDL RATIO NORM SEE BELOW Normal [facility] [place] [facility] Comment on above: Result Comment: 3.3 - 4.4 LOW RISK 4.4 - 7.1 AVERAGE RISK 7.1 - 11.0 MODERATE RISK >11.0 HIGH RISK Performed By: #### T SH, FT3, T4, CMP, LIPID ####[facility] [address] [place] [address]Dr. Mary Ellen Rolon Cholesterol [Mass/Vol] 169 mg/dL Normal <=200 [facility] Comment on above: Performed By: #### T SH, FT3, T4, CMP, LIPID ####[facility] [address] [place] [address]Dr. Mary Ellen Rolon Cholesterol in HDL [Mass/Vol] 51 mg/dL Normal 40-60 [facility] Comment on above: Performed By: #### T SH, FT3, T4, CMP, LIPID ####[facility] [address] [place] [id number]. Mary Ellen Rolon Cholesterol in LDL [Mass/Vol] 86.8 mg/dL Normal [facility] Comment on above: Performed By: #### T SH, FT3, T4, CMP, LIPID ####[facility] [address] [place] [id number]. Mary Ellen Rolon Cholesterol.total/Ch olesterol in HDL [Mass ratio] 3.3 {ratio} Normal [facility] Comment on above: Performed By: #### T SH, FT3, T4, CMP, LIPID ####[facility] [address] [place] [id number]. Mary Ellen Rolon HDL NORMAL > or = 60 mg/dl - LO W CARDIOVASCULAR RISK <40 mg/dl - HIGH CARDIOVASCULAR RISK Normal [facility] Comment on above: Performed By: #### T SH, FT3, T4, CMP, LIPID ####[facility] [address] [place] [address]Dr. Mary Ellen Rolon LDL CALC NORMAL SEE BELOW Normal [facility] Comment on above: Result Comment: <100 mg/dl OPTIMAL 100 - 129 mg/dl NEAR OR ABOVE OPTIMAL 130 - 159 mg/dl BORDERLINE HIGH 160 - 189 mg/dl HIGH >190 mg/dl VERY HIGH Performed By: #### T SH, FT3, T4, CMP, LIPID ####[facility] [address] [place] [address]Dr. Mary Ellen Rolon Triglyceride [Mass/Vol] 156 mg/dL Critically high <=150 [facility] Comment on above: Performed By: #### T SH, FT3, T4, CMP, LIPID ####[facility] [address] [place] [address]Dr. Mary Ellen Rolon VLDL CALC 31.2 mg/dL Normal [facility] Comment on above: Performed By: #### T SH, FT3, T4, CMP, LIPID ####[facility] [address] [place] [address]Dr. Mary Ellen Rolon MICROALBUMIN, RAND URon - mALB <1.3 Normal <=30.0 [facility] Comment on above: Performed By: #### M ALBR ####[facility] [address] [place] [address]Dr. Mary Ellen Rolon PROF 14(COMP METB)on 022 Albumin [Mass/Vol] 3.6 g/dL Normal 3.4-5.0 [facility] Comment on above: Performed By: #### T SH, FT3, T4, CMP, LIPID ####[facility] [address] [place] [address]Dr. Mary Ellen Rolon Albumin/Globulin [Mass ratio] 1.1 {ratio} Normal [facility] Comment on above: Performed By: #### T SH, FT3, T4, CMP, LIPID ####[facility] [address] [place] [address]Dr. Mary Ellen Rolon ALP [Catalytic activity/Vol] 77 U/L Normal 46-116 [facility] Comment on above: Performed By: #### T SH, FT3, T4, CMP, LIPID ####[facility] [address] [place] [address]Dr. Mary Ellen Rolon ALT [Catalytic activity/Vol] 22 U/L Normal 14-59 [facility] Comment on above: Performed By: #### T SH, FT3, T4, CMP, LIPID ####[facility] [address] [place] [address]Dr. Mary Ellen Rolon Anion gap [Moles/Vol] 11.7 mmol/L Normal [facility] Comment on above: Performed By: #### T SH, FT3, T4, CMP, LIPID ####[facility] [address] [place], [place] [address]Dr. Mary Ellen Rolon AST [Catalytic activity/Vol] 12 U/L Critically low 15-37 [facility] Comment on above: Performed By: #### T SH, FT3, T4, CMP, LIPID ####[facility] [address] [place], [place] [address]Dr. Mary Ellen Rolon Bilirubin [Mass/Vol] 0.3 mg/dL Normal 0.2-1.0 [facility] Comment on above: Performed By: #### T SH, FT3, T4, CMP, LIPID ####[facility] [address] [place], [place] [address]Dr. Mary Ellen Rolon Calcium [Mass/Vol] 8.6 mg/dL Normal 8.5-10.1 [facility] Comment on above: Performed By: #### T SH, FT3, T4, CMP, LIPID ####[facility] [address] [place] [address]Dr. Mary Ellen Rolon Chloride [Moles/Vol] 103 mmol/L Normal 98-107 [facility] Comment on above: Performed By: #### T SH, FT3, T4, CMP, LIPID ####[facility] [address] [place] [address]Dr. Mary Ellen Rolon CO2 [Moles/Vol] 27.3 mmol/L Normal 21.0-32.0 [facility] Comment on above: Performed By: #### T SH, FT3, T4, CMP, LIPID ####[facility] [address] [place] [address]Dr. Mary Ellen Rolon Creatinine [Mass/Vol] 0.67 mg/dL Normal 0.55-1.02 [facility] Comment on above: Performed By: #### T SH, FT3, T4, CMP, LIPID ####[facility] [address] [place] [address]Dr. Mary Ellen Rolon EGFR-AF [place] >60 Normal >=60 [facility] Comment on above: Performed By: #### T SH, FT3, T4, CMP, LIPID ####[facility] [address] [place], [place] [address]Dr. Mary Ellen Rolon EGFR-NON AF [place] >60 Normal >=60 [facility] Comment on above: Performed By: #### T SH, FT3, T4, CMP, LIPID ####[facility] [address] [place], [place] [address]Dr. Mary Ellen Rolon Globulin (S) [Mass/Vol] 3.3 g/dL Normal [facility] Comment on above: Performed By: #### T SH, FT3, T4, CMP, LIPID ####[facility] [address] [place], [place] [address]Dr. Mary Ellen Rolon Glucose [Mass/Vol] 166 mg/dL Critically high 74-106 [facility] Comment on above: Performed By: #### T SH, FT3, T4, CMP, LIPID ####[facility] [address] [place], [place] [address]Dr. Mary Ellen Rolon Potassium [Moles/Vol] 4.0 mmol/L Normal 3.5-5.1 [facility] Comment on above: Performed By: #### T SH, FT3, T4, CMP, LIPID ####[facility] [address] [place], [place] [address]Dr. Mary Ellen Rolon Protein [Mass/Vol] 6.9 g/dL Normal 6.4-8.2 [facility] Comment on above: Performed By: #### T SH, FT3, T4, CMP, LIPID ####[facility] [address] [place], [place] [address]Ix. Mary Ellen Rolon Sodium [Moles/Vol] 138 mmol/L Normal 136-145 [facility] Comment on above: Performed By: #### T SH, FT3, T4, CMP, LIPID ####[facility] [address] [place] [id number]. Mary Ellen Rolon Urea nitrogen [Mass/Vol] 12.0 mg/dL Normal 7.0-18.0 [facility] Comment on above: Performed By: #### T SH, FT3, T4, CMP, LIPID ####[facility] [address] [place] [address]Dr. Mary Ellen Rolon Urea nitrogen/Creatinine [Mass ratio] 17.9 mg/mg Normal [facility] Comment on above: Performed By: #### T SH, FT3, T4, CMP, LIPID ####[facility] [address] [place] [address]Dr. Mary Ellen Rolon T4on 02-08-2022 T4 [Mass/Vol] 7.00 ug/dL Normal 4.80-13.90 [facility] Comment on above: Performed By: #### T SH, FT3, T4, CMP, LIPID ####[facility] [address] [place] [id number]. Mary Ellen Rolon TSHon 02-08-2022 TSH 3.041 uIU/mL Normal 0.358-3.740 [facility] Comment on above: Performed By: #### F T4, VITAD #### [facility] [address] [place] [address] [address] CSPINE WO CONon 2 CT CSPINE WO CON EXAMINATION: CT CSPI NE WO CON HISTORY: This is a 71-year-old who tripped over the dog, landing on the right side, now with dizziness, headache and neck pain. COMPARISON: None. TECHNIQUE: CT Cervical spine without IV contrast. Coronal and sagittal reformations were performed. Dose reduction techniques were achieved by using automated exposure control and/or adjustment of mA and/or kV according to patient size and/or use of iterative reconstruction technique. FINDINGS: There is mild straightening of the normal lordotic curvature throughout the cervical spine. There is a very minimal 1 mm anterior slippage of C4 on C5, C6 and C7 and C7 on T1. The vertebral body heights are intact. Small osteophytes arise from the vertebral bodies. No significant focal abnormality is seen within the vertebral bodies. Hypertrophic changes with osteophytes are seen along the anterior arch of C1 and the dens. There is mild narrowing of the disc spaces from C5 through T1. Hypertrophic degenerative changes are seen scattered throughout the facets, more prominent on the left side, without evidence of an acute fracture or subluxation. The posterior soft tissues appear intact. The airway appears intact. At the C2-C3 and C3-C4 disc levels are is no evidence of disc herniation or spinal stenosis. The neural foramina are patent bilaterally. At the C4-C5 disc level there is no evidence of disc herniation or spinal stenosis. There is moderate impingement upon the left neural foramen secondary to osteophytes, and the right neural foramen is patent. At the C5-C6 disc level there is no evidence of disc herniation or spinal stenosis. There is mild to very mild impingement upon the neural foramina bilaterally. At the C6-C7 disc level there is slight posterior disc bulging and small osteophytes without evidence of disc herniation or spinal stenosis. There is mild to moderate impingement upon the left neural foramen secondary to osteophytes. At the C7-T1 disc level there is no evidence of disc herniation or spinal stenosis. There is mild to moderate impinge upon the left neural foramen and the right neural foramen is patent. No abnormality seen within the spinal canal. IMPRESSION: There is straightening of the normal lordotic curvature throughout the cervical spine. Degenerative changes are present without evidence of an acute fracture. There is no evidence of disc herniation or spinal stenosis throughout the cervical spine. There is some impingement upon the neural foramina, as described. No abnormality seen within the spinal canal. Direct comparison with a previous study may be helpful in determining the chronicity of these findings. Electronically authenticated by: BERKLEY GALINDO Date: 2022-02-01 17:23 Normal [facility] CT HEAD WO CONon 02-01-2022 CT HEAD WO CON EXAMINATION: CT HEAD WO CON HISTORY: This is a 71-year-old who tripped over the dog and fell with an injury to the right side. The patient now complains of pain in the head and neck and dizziness. COMPARISON: None. TECHNIQUE: CT examination of the head without IV contrast. Sagittal and coronal reconstructions were obtained. Dose reduction techniques were achieved by using automated exposure control and/or adjustment of mA and/or kV according to patient size and/or use of iterative reconstruction technique. FINDINGS: The ventricles at the upper limits of normal in size, the lateral ventricles are symmetric and the third ventricles in the midline. The sylvian fissures and cortical sulci are near the upper limits of normal in size. There is no evidence of an intracranial hemorrhage, mass lesion or apparent acute infarct. Benign calcification is seen in the falx, choroid plexus and pineal complex. Additional curvilinear calcification wraps around the posterior aspect of the corpus callosum at the posterior commissure without mass effect. This is accompanied by curvilinear soft tissue compatible with a mass. Slightly diminished attenuation is seen in the deep white matter. The cerebellum and brainstem appear unremarkable as visualized. There is mucosal thickening is seen scattered throughout the paranasal sinuses a few of the ethmoid sinuses are completely opacified. There is no apparent skull fracture. IMPRESSION: There is no evidence of an intracranial hemorrhage, mass lesion or apparent acute infarct. Slight patchy diminished attenuation in the deep white matter indicates early deep white matter ischemic changes. There is curvilinear calcification and associated soft tissues wrapping along the posterior aspect of the corpus callosum without mass effect or edema. A definite associated lipoma is not identified, and this is felt to be benign in nature. There is an element of sinusitis present. Direct comparison with a previous study would be helpful in confirming the chronicity of these findings. If the patient is symptomatic and further evaluation is clinically indicated then perhaps an MRI study would be helpful. Electronically authenticated by: BERKLEY GALINDO Date: 2022-02-01 17:11 Normal [facility] XR HIP RT 2 3V W PELVISon XR HIP RT 2 3V W PELVIS EXAM: XR HIP RT 2 3V W PELVIS HISTORY: The patient is a 71-year-old female with right hip pain after falling. COMPARISON: None. FINDINGS: No displaced fractures or cortical discontinuities are seen within the proximal right femur or elsewhere throughout the bony pelvis. The alignment of both hip joints is maintained. There is cartilage loss in both hips, more advanced on the left. The sacroiliac joints are maintained. The pubic symphysis is maintained. IMPRESSION: No displaced fractures seen. Electronically authenticated by: MALAIKA NORTH Date: 2022-02-01 17:49 Normal [facility] XR HUMERUS RT MIN 2 Von 01-18 XR HUMERUS RT MIN 2 V EXAM: XR SHOULDER RT 2V or >, XR HUMERUS RT MIN 2 V HISTORY: The patient is a 71-year-old female with right shoulder pain after falling. COMPARISON: None. FINDINGS: The right shoulder is radiographically negative with no evidence of fracture, dislocation, calcific tendonitis, or other osseous or articular abnormalities. The glenohumeral joint is maintained. The acromioclavicular joint is maintained. The subacromial space is maintained. The right humerus is radiographically negative with no evidence of fracture, cortical lucencies, periosteal reactions, or other osseous abnormalities. The elbow joint is grossly maintained. IMPRESSION: Negative right shoulder and right humerus. Electronically authenticated by: MALAIKA NORTH Date: 2022-02-01 17:47 Normal [facility] XR KNEE BETTYE 4V or >on 2021 XR KNEE BETTYE 4V or > EXAMINATION: XR KNEE BETTYE 4V or > HISTORY: Falling injury COMPARISON: No relevant comparison available. FINDINGS: RIGHT FINDINGS: BONES: No acute fracture or dislocation. Moderate to severe tricompartmental osteoarthropathy with moderate narrowing of the medial joint space and marginal osteophyte formation SOFT TISSUES: Negative. No visible soft tissue swelling. OTHER: Moderate suprapatellar joint effusion LEFT FINDINGS: BONES: No acute fracture or dislocation. Moderate to severe tricompartmental osteoarthropathy with moderate narrowing of the medial joint space and marginal osteophyte formation SOFT TISSUES: Negative. No visible soft tissue swelling. OTHER: Moderate joint effusion IMPRESSION: RIGHT CONCLUSION: Degenerative osteoarthritis, no acute fracture LEFT CONCLUSION: Degenerative osteoarthritis, no acute fracture Electronically authenticated by: MEME MONTENEGRO Date: 2021-10-19 16:39 Normal [facility] XR RIBS RT PA Juliet 2 XR RIBS RT PA CH EXAMINATION: XR RIBS RT PA CH HISTORY: Falling injury COMPARISON: No relevant comparison available. FINDINGS: LUNGS: No significant pulmonary parenchymal abnormalities. PLEURA: No pneumothorax, effusion, or pleural thickening. MEDIASTINUM: No visible mass or adenopathy. CARDIAC: No cardiomegaly or cardiac silhouette abnormality. RIBS: No acute rib fracture OTHER: Degenerative changes with rotatory levocurvature of the thoracolumbar spine IMPRESSION: No acute rib fracture Clear lungs Electronically authenticated by: MEME MONTENEGRO Date: 2021-10-19 16:41 Normal [facility] CBC AUTO DIFFon 08-09-2021 BASO # 0.0 103/ul Normal 0.0-0.1 [facility] Comment on above: Performed By: #### C BC ####[facility] [address] [place] [id number]. Mary Ellen Rolon Basophils/100 WBC (Bld) 0.4 % Normal 0.2-2.0 [facility] Comment on above: Performed By: #### C BC ####[facility] [address] [place] [id number]. Mary Ellen Rolon EO # 0.5 103/ul Normal 0.0-0.7 [facility] Comment on above: Performed By: #### C BC ####[facility] [address] [place] [id number]. Mary Ellen Rolon Eosinophils/100 WBC (Bld) 6.6 % Normal 0.9-7.0 [facility] Comment on above: Performed By: #### C BC ####[facility] [address] [place] [address]Dr. aMry Ellen Rolon Erythrocyte distribution width (RBC) [Ratio] 13.9 % Normal 11.0-15.0 [facility] Comment on above: Performed By: #### C BC ####[facility] [address] [place] [address]Dr. Mary Ellen Rolon Hematocrit (Bld) [Volume fraction] 42.6 % Normal 36.0-48.0 [facility] Comment on above: Performed By: #### C BC ####[facility] [address] [place] [address]Dr. Mary Ellen Rolon Hemoglobin (Bld) [Mass/Vol] 13.5 g/dL Normal 12.0-16.0 [facility] Comment on above: Performed By: #### C BC ####[facility] [address] [place] [address]Dr. Ginasreekanth Rolon IG # 0.04 10e3/ul Critically high 0.00-0.03 [facility] Comment on above: Performed By: #### C BC ####[facility] [address] [place] [address]Dr. Mary Ellen Rolon IG % 0.5 % Normal 0.0-0.5 [facility] Comment on above: Performed By: #### C BC ####[facility] [address] [place] [address]Dr. Mary Ellen Rolon LYMPH # 2.2 103/ul Normal 1.2-3.8 [facility] Comment on above: Performed By: #### C BC ####[facility] [address] [place] [address]Dr. Mary Ellen Rolon Lymphocytes/100 WBC (Bld) 26.9 % Normal 20.5-60.0 [facility] Comment on above: Performed By: #### C BC ####[facility] [address] [place] [address]Dr. Mary Ellen Rolon MANUAL DIFF REQ NO Normal [facility] Comment on above: Performed By: #### C BC ####[facility] [address] [place] [address]Dr. Mary Ellen Rolon MCH (RBC) [Entitic mass] 29.2 pg Normal 26.7-34.0 [facility] Comment on above: Performed By: #### C BC ####[facility] [address] [place] [address]Dr. Mary Ellen Rolon MCHC (RBC) [Mass/Vol] 31.7 g/dL Normal 29.9-35.2 [facility] Comment on above: Performed By: #### C BC ####[facility] [address] [place] [address]Dr. Mary Ellen Rolon MCV (RBC) [Entitic vol] 92.0 fL Normal 81.0-99.0 [facility] Comment on above: Performed By: #### C BC ####[facility] [address] [place] [id number]. Mary Ellen Rolon MONO # 0.7 103/ul Normal 0.3-0.8 [facility] Comment on above: Performed By: #### C BC ####[facility] [address] [place] [address]Dr. Mary Ellen Rolon Monocytes/100 WBC (Bld) 8.1 % Normal 1.7-12.0 [facility] Comment on above: Performed By: #### C BC ####[facility] [address] [place] [address]Dr. Mary Ellen Rolon NEUT # 4.7 103/ul Normal 1.4-6.5 [facility] Comment on above: Performed By: #### C BC ####[facility] Q[address]hcx[address] [place] [address]Dr. Mary Ellen Rolon Neutrophils/100 WBC (Bld) 57.5 % Normal 43.0-75.0 [facility] Comment on above: Performed By: #### C BC ####[facility] [address] [place] [id number]. Mary Ellen Rolon Platelet mean volume (Bld) [Entitic vol] 9.1 fL Critically low 9.5-13.5 [facility] Comment on above: Performed By: #### C BC ####[facility] [address] [place] [id number]. Mary Ellen Rolon PLT 306 103/ul Normal 150-450 [facility] Comment on above: Performed By: #### C BC ####[facility] [address] [place] [address]Dr. Mary Ellen Rolon RBC 4.63 106/ul Normal 4.20-5.40 [facility] Comment on above: Performed By: #### C BC ####[facility] [address] [place] [address]Dr. Mary Ellen Rolon WBC 8.2 103/ul Normal 4.0-11.0 [facility] Comment on above: Performed By: #### C BC ####[facility] [address] [place], [place] [id number]. Mary Ellen Rolon FREE T3on 08-09-2021 FREE T3 3.32 pg/mlL Normal 2.77-5.27 [facility] Comment on above: Performed By: #### T SH, FT3, CMP, LIPID #### [facility] [address] [place] [address] [address] Mary Ellen Rolon FREE T4on 08-09-2021 Free T4 [Mass/Vol] 1.12 ng/dL Normal 0.78-2.19 [facility] Comment on above: Performed By: #### F T4, VITAD #### [facility] [address] [place] [address] [address] Mary Ellen Rolon GLYCOHEMOGLOBIN A1Con 2021 ADA RECOMMENDATION ADA THERAPEUTIC TARG ET 6.0 - 7.0 ACTION SUGGESTED > 7.0 Normal [facility] Comment on above: Performed By: #### A 1C ####[facility] [address] [place] [address]Dr. Mary Ellen Rolon Glucose [Mass/Vol] 137 mg/dL Normal [facility] Comment on above: Performed By: #### A 1C ####[facility] [address] [place] [address]Dr. Mary Ellen Rolon HbA1c (Bld) [Mass fraction] 6.4 % Critically high <=6.0 [facility] Comment on above: Performed By: #### A 1C ####[facility] [address] [place] [address]Dr. Mary Ellen Rolon LIPID PROFILEon 08-09-2021 CHOL-HDL RATIO NORM SEE BELOW Normal [facility] Comment on above: Result Comment: 3.3 - 4.4 LOW RISK 4.4 - 7.1 AVERAGE RISK 7.1 - 11.0 MODERATE RISK >11.0 HIGH RISK Performed By: #### T SH, FT3, CMP, LIPID #### [facility] [address] [address] [address] Mary Ellen Rolon Cholesterol [Mass/Vol] 142 mg/dL Normal <=200 [facility] Comment on above: Performed By: #### T SH, FT3, CMP, LIPID #### [facility] [address] [address] [address] Mary Ellen Rolon Cholesterol in HDL [Mass/Vol] 49 mg/dL Normal [facility] Comment on above: Performed By: #### T SH, FT3, CMP, LIPID #### [facility] [address] [address] [address] Mary Ellen Rolon Cholesterol in LDL [Mass/Vol] 65.6 mg/dL Normal [facility] Comment on above: Performed By: #### T SH, FT3, CMP, LIPID #### [facility] [address] [address] [address] Mary Ellen Rolon Cholesterol.total/Ch olesterol in HDL [Mass ratio] 2.9 {ratio} Normal [facility] Comment on above: Performed By: #### T SH, FT3, CMP, LIPID #### [facility] [address] [address] [address] Mary Ellen Rolon HDL NORMAL > or = 60 mg/dl - LO W CARDIOVASCULAR RISK <40 mg/dl - HIGH CARDIOVASCULAR RISK Normal [facility] Comment on above: Performed By: #### T SH, FT3, CMP, LIPID #### [facility] [address] [address] [address] Mary Ellen Rloon LDL CALC NORMAL SEE BELOW Normal [facility] Comment on above: Result Comment: <100 mg/dl OPTIMAL 100 - 129 mg/dl NEAR OR ABOVE OPTIMAL 130 - 159 mg/dl BORDERLINE HIGH 160 - 189 mg/dl HIGH >190 mg/dl VERY HIGH Performed By: #### T SH, FT3, CMP, LIPID #### [facility] [address] [address] [address] Mary Ellen Rolon Triglyceride [Mass/Vol] 137 mg/dL Normal <=150 [facility] Comment on above: Performed By: #### T SH, FT3, CMP, LIPID #### [facility] [address] [address] [address] Mary Ellen Rolon VLDL CALC 27.4 mg/dL Normal [facility] Comment on above: Performed By: #### T SH, FT3, CMP, LIPID #### [facility] [address] [address] [address] Mary Ellen Rolon MICROALB CREAT RATIO RANDOMo n 08-09-2021 mALB 1.7 mg/L Normal <=30.0 [facility] Comment on above: Performed By: #### F T4, VITAD #### [facility] [address] [address] [address] Mary Ellen MANUELB CR RATIO 13.1 mg/g Normal 0.0-29.9 [facility] Comment on above: Performed By: #### F T4, VITAD #### [facility] [address] [address] [address] Mary Ellen Rolon MALB CR RATIO RANGE SEE BELOW Normal [facility] Comment on above: Result Comment: NO M ICROALBUMINURIA 0-29 MG/G CLINICAL MICROALBUMINURIA 30-300 MG/G MACROALBUMINURIA >300 MG/G Performed By: #### F T4, VITAD #### [facility] [address] [address] [address] Mary Ellen Rolon URINE CREAT 129.89 mg/dL Normal 20.00-300.00 [facility] Comment on above: Performed By: #### F T4, VITAD #### [facility] [address] [address] [address] Mary Ellen Rolon PROF 14(COMP METB)on 022 Albumin [Mass/Vol] 3.5 g/dL Normal 3.5-5.0 [facility] Comment on above: Performed By: #### T SH, FT3, CMP, LIPID #### [facility] [address] [address] [address] Mary Ellen Rolon Albumin/Globulin [Mass ratio] 1.1 {ratio} Normal [facility] Comment on above: Performed By: #### T SH, FT3, CMP, LIPID #### [facility] [address] [address] [address] Mary Ellen Rolon ALP [Catalytic activity/Vol] 79 U/L Normal 38-126 [facility] Comment on above: Performed By: #### T SH, FT3, CMP, LIPID #### [facility] [address] [address] [address] Mary Ellen Rolon ALT [Catalytic activity/Vol] 23 U/L Normal 9-52 [facility] Comment on above: Performed By: #### T SH, FT3, CMP, LIPID #### [facility] [address] [address] [address] Mary Ellen Rolon Anion gap [Moles/Vol] 11.7 mmol/L Normal [facility] Comment on above: Performed By: #### T SH, FT3, CMP, LIPID #### [facility] [address] [place] [address] Dr. Mary Ellen Rolon AST [Catalytic activity/Vol] 11 U/L Critically low 14-36 [facility] Comment on above: Performed By: #### T SH, FT3, CMP, LIPID #### [facility] [address] [place] [address] Dr. Mary Ellen Rolon Bilirubin [Mass/Vol] 0.4 mg/dL Normal 0.2-1.3 [facility] Comment on above: Performed By: #### T SH, FT3, CMP, LIPID #### [facility] [address] [address] [address] Mary Ellen Rolon Calcium [Mass/Vol] 8.6 mg/dL Normal 8.4-10.2 [facility] Comment on above: Performed By: #### T SH, FT3, CMP, LIPID #### [facility] [address] [place] [address] Dr. Mary Ellen Rolon Chloride [Moles/Vol] 104 mmol/L Normal 98-107 [facility] Comment on above: Performed By: #### T SH, FT3, CMP, LIPID #### [facility] [address] [place] [address] Dr. Mary Ellen Rolon CO2 [Moles/Vol] 28.3 mmol/L Normal 22.0-30.0 [facility] Comment on above: Performed By: #### T SH, FT3, CMP, LIPID #### [facility] [address] [place] [address] Dr. Mary Ellen Rolon Creatinine [Mass/Vol] 0.65 mg/dL Normal 0.52-1.04 [facility] Comment on above: Performed By: #### T SH, FT3, CMP, LIPID #### [facility] [address] [address] [address] Mary Ellen Rolon EGFR-AF MALAWIAN >60 Normal >=60 [facility] Comment on above: Performed By: #### T SH, FT3, CMP, LIPID #### [facility] [address] [address] [address] Mary Ellen Rolon EGFR-NON AF MALAWIAN >60 Normal >=60 [facility] Comment on above: Performed By: #### T SH, FT3, CMP, LIPID #### [facility] [address] [place] [address] Dr. Mary Ellen Rolon Globulin (S) [Mass/Vol] 3.3 g/dL Normal [facility] Comment on above: Performed By: #### T SH, FT3, CMP, LIPID #### [facility] [address] [place] [address] Dr. Mary Ellen Rolon Glucose [Mass/Vol] 138 mg/dL Critically high 74-106 [facility] Comment on above: Performed By: #### T SH, FT3, CMP, LIPID #### [facility] [address] [place] [address] Dr. Mary Ellen Rolon Potassium [Moles/Vol] 4.0 mmol/L Normal 3.4-5.0 [facility] Comment on above: Performed By: #### T SH, FT3, CMP, LIPID #### [facility] [address] [place] [address] Dr. Mary Ellen Rolon Protein [Mass/Vol] 6.8 g/dL Normal 6.1-8.2 [facility] Comment on above: Performed By: #### T SH, FT3, CMP, LIPID #### [facility] [address] [place] [address] Dr. Mary Ellen Rolon Sodium [Moles/Vol] 140 mmol/L Normal 137-145 [facility] Comment on above: Performed By: #### T SH, FT3, CMP, LIPID #### [facility] [address] [place] [address] Dr. Mary Ellen Rolon Urea nitrogen [Mass/Vol] 12.0 mg/dL Normal 7.0-17.0 [facility] Comment on above: Performed By: #### T SH, FT3, CMP, LIPID #### [facility] [address] [place] [address] Dr. Mary Ellen Rolon Urea nitrogen/Creatinine [Mass ratio] 18.5 mg/mg Normal [facility] Comment on above: Performed By: #### T SH, FT3, CMP, LIPID #### [facility] [address] [place] [address] Dr. Mary Ellen Rolon TSHon 08-09-2021 TSH 0.209 uIU/mL Critically low 0.470-4.680 [facility] Comment on above: Performed By: #### T SH, FT3, CMP, LIPID #### [facility] [address] [place] [address] Dr. Mary Ellen Rolon TSH RANGE SEE BELOW Normal [facility] Comment on above: Result Comment: <0.3 4 UIU/ml HYPERTHYROID 0.34-5.60 UIU/ml EUTHYROID >5.60 UIU/ml HYPOTHYROID Performed By: #### T SH, FT3, CMP, LIPID #### [facility] [address] [place] [address] Dr. Mary Ellen Rolon VITAMIN D 25 OHon 08-09-2021 VIT D 25-OH 61.5 ng/mL Normal [facility] Comment on above: Performed By: #### F T4, VITAD #### [facility] [address] [place] [address] Dr. Mary Ellen Rolon VIT D RANGES SEE BELOW Normal [facility] Comment on above: Result Comment: <20 ng/mL Vit D deficient 20 - <30 ng/mL Vit D insufficient 30 - 100 ng/mL Vit D sufficient >100 ng/mL Potential Toxicity Performed By: #### F T4, VITAD #### [facility] [address] [place] [address] Dr. Mary Ellen Rolon Vital Signs Date Time Vital Sign Value Performing Clinician Facility 08-22-2023 10:20-0500 Body height 167.6 cm Marquis Ang PA Work Phone: [facility] 08-22-2023 10:20-0500 Body mass index (BMI) [Ratio] 25.18 kg/m2 Marquis Ang PA Work Phone: [facility] 08-22-2023 10:20-0500 Body weight 70.76 kg Marquis Ang PA Work Phone: [facility] 07-02-2023 11:15-0500 Body height 167.64 cm Meme Gong Other [facility] Other 07-02-2023 11:15-0500 Body mass index (BMI) [Ratio] 26.14 kg/m2 Meme Gong Other [facility] Other 07-02-2023 11:15-0500 Body weight 73.48 kg Meme Gong Other [facility] Other 07-02-2023 11:15-0500 Diastolic blood pressure 71 mm[Hg] Meme Gong Other [facility] Other 07-02-2023 11:15-0500 SaO2% (BldA) [Mass fraction] 96 % Meme Gong Other [facility] Other 07-02-2023 11:15-0500 Systolic blood pressure 127 mm[Hg] Meme Gong Other [facility] Other 06-27-2022 10:00-0500 Body height 167.64 cm Velasquez Lam Other [facility] Other 06-27-2022 10:00-0500 Body mass index (BMI) [Ratio] 29.37 kg/m2 Velasquez Riosxa Other [facility] Other 06-27-2022 10:00-0500 Body weight 82.56 kg Velasquez Lam Other [facility] Other Encounters Encounter Date Encounter Type Care Provider Facility Start: 10-30-2023 End: 10-30-2023 ambulatory MEME B NUHA Not Available Start: 10-16-2023 End: 10-16-2023 ambulatory MEME B NUHA Not Available Start: 10-08-2023 End: 10-08-2023 ambulatory MEME B NUHA Not Available Start: 09-26-2023 End: 09-26-2023 ambulatory MARQUIS Contreras SANJEEV Not Available Start: 09-24-2023 End: 09-24-2023 ambulatory MEME B NUHA Not Available Start: 09-22-2023 End: 09-22-2023 ambulatory MEME B NUHA Not Available Start: 09-15-2023 End: 09-15-2023 ambulatory MEME B NUHA Not Available Start: 09-12-2023 End: 09-12-2023 ambulatory MEME B NUHA Not Available Start: 09-10-2023 End: 09-10-2023 ambulatory MEME B NUHA Not Available Start: 09-04-2023 Bamboo flowsheet Meme Gunderson Nuha P T Work Phone: [facility] Start: 09-04-2023 Bamboo flowsheet Meme Gunderson Nuha P T Work Phone: [facility] Start: 09-04-2023 End: 09-04-2023 ambulatory MEME Gunderson NUHA Not Available Start: 09-04-2023 End: 09-04-2023 ambulatory Meme Gunderson Nuha PT Work Phone: [facility] Comment on above: Sacroiliac joint scooter n (Primary Dx); Lumbar paraspinal muscle spasm; Lumbar radiculopathy, chronic; Idiopathic scoliosis of thoracolumbar region Start: 09-01-2023 End: 09-01-2023 ambulatory Meme Gunderson Nuha PT Work Phone: [facility] Comment on above: Lumbar paraspinal mu scle spasm (Primary Dx); Sacroiliac joint pain; Lumbar radiculopathy, chronic; Idiopathic scoliosis of thoracolumbar region Start: 09-01-2023 Bamboo flowsheet Meme Duggan T Work Phone: [facility] Start: 09-01-2023 Bamboo flowsheet Meme Duggan T Work Phone: [facility] Start: 08-22-2023 End: 08-23-2023 ambulatory MARQUIS ANG Not Available Start: 08-22-2023 End: 08-22-2023 Office outpatient visit 25 minutes Marquis Ang PA Work Phone: [facility] Comment on above: Acute left-sided low back pain without sciatica (Primary Dx); Sacroiliac joint pain; Other idiopathic scoliosis, thoracolumbar region Start: 08-21-2023 End: 08-21-2023 ambulatory AUGUSTA SURESH Not Available Start: 07-17-2023 End: 07-18-2023 ambulatory CRISTOFER OLIVA Not Available Start: 07-02-2023 Office outpatient vi sit 25 minutes Meme Gong [facility] Start: 07-02-2023 Patient encounter procedure Marquis WALTON Work Phone: [facility] Start: 07-02-2023 End: 07-02-2023 ambulatory Meme Gong [facility] [employer] Other Start: 06-24-2023 End: 06-24-2023 ambulatory SAILAJA VILLA Not Available Start: 02-24-2023 End: 02-24-2023 ambulatory Luisa Kim Facility:[facility] Start: 02-24-2023 End: 02-24-2023 ambulatory DO Luisa Kim Work Phone: [facility] Work Phone: Start: 02-24-2023 End: 02-24-2023 Discharged Recurring DO Luisa Kim Work Phone: [facility] [place] Work Phone: Start: 01-03-2023 End: 01-03-2023 ambulatory Luisa Kim Facility:[facility] Start: 01-03-2023 End: 01-03-2023 ambulatory DO Luisa Kim Work Phone: [facility] Work Phone: Start: 01-03-2023 End: 01-03-2023 Patient encounter procedure DO Luisa Kim Work Phone: [facility]-Electrodiagnostics Work Phone: Start: 01-03-[address] Jairo Muñoz [id number] Start: 06-27-2022 Office outpatient vi sit 15 minutes Velasquez Lam [facility] Start: 06-27-2022 End: 06-27-2022 ambulatory DO Luisa Kim Work Phone: [facility] Other Start: 06-27-2022 End: 06-27-2022 Patient encounter procedure DO Luisa Kim Work Phone: [facility] Start: 06-18-2022 End: 06-19-[address] LUISA KIM Facility: Start: 05-09-2022 End: 05-09-2022 ambulatory DO Luisa Kim Work Phone: [facility] Work Phone: Start: 05-09-2022 End: 05-09-2022 Discharged Recurring DO Luisa Kim Work Phone: [facility] [place] Start: 03-11-2022 End: 03-11-2022 ambulatory Velasquez Lam Other [facility] Other Start: 03-11-2022 Encounter for other preprocedural examination Velasquez Gabrielxa [facility] [place] [facility] Start: 03-11-2022 Office outpatient vi sit 25 minutes Velasquez Lam [facility] Start: 02-23-2022 End: 02-23-2022 Patient encounter procedure DO Luisa Kim Work Phone: [facility]-MRI [facility] [place] Start: 02-19-2022 End: 02-19-2022 ambulatory Velasquez Lam Other [employer] Other Start: 02-19-2022 Office outpatient vi sit 25 minutes Velasquez Lam [facility] Start: 02-19-2022 End: 02-19-2022 Patient encounter procedure DO Luisa Kim Work Phone: [facility] [place] [facility] Start: 02-08-2022 End: 02-09-[address] LUISA KIM Facility:[facility] Start: 02-01-2022 End: 02-01-[address] LUISA KIM Facility:[facility] Start: 10-19-2021 End: 10-20-[address] LUISA KIM Facility:[facility] Start: 08-09-2021 End: 08-10-[address] LUISA KIM Facility:[facility] Procedures Date Procedure Procedure Detail Performing Clinician Start: 07-17-2023 Mammography Marquis WALTON Work Phone: Start: 06-27-2022 Plain X-ray of right shoulder DO Luisa Kim Work Phone: Start: 02-23-2022 MRI of right shoulder DO Luisa Kim Work Phone: Start: 02-19-2022 Plain X-ray of right clavicle DO Luisa Kim Work Phone: Start: 12-10-2021 Colonoscopy Marquis WALTON Work Phone: Start: 09-04-2020 History of thyroidectomy History of thyroidectomy Marquis WALTON Work Phone: Plan of Treatment Date Care Activity Detail Author Start: 12-11-2031 Screening for malign ant neoplasm of colon [facility] Start: 07-17-2024 Screening for malign ant neoplasm of breast Mammogram [facility] Start: 07-02-2024 Medicare Annual Wellness (AWV) Medicare Annual Wellness (AWV) [facility] Start: 12-16-2023 End: 12-16-2023 Patient encounter procedure 12/16/2023 10:20 AM EDT Office Visit [facility] [address] [place] [id number] Sailaja Villa MD [address] [place] [address] [facility] Start: 11-05-2023 End: 11-05-2023 Patient encounter procedure 11/05/2023 9:45 AM EDT Office Visit [facility] [address] [place] [id number] Luisa Kim DO [address] [place] [address] [facility] Start: 09-26-2023 End: 09-26-2023 Patient encounter procedure 09/26/2023 10:30 AM EST Office Visit [facility] [address] [place] [address] Marquis Ang PA [address] [place] [address] [facility] Start: 09-24-2023 End: 09-24-2023 ambulatory 09/24/2023 11:30 AM EST Treatment [facility] [address] [place] [address] Meme Breen, PT [address] [facility] [place] [address] [facility] Start: 09-22-2023 End: 09-22-2023 ambulatory 09/22/2023 11:15 AM EST Treatment [facility] [address] [place] [address] Meme Breen, PT [address] [place] [address] [facility] Start: 09-19-2023 End: 09-19-2023 ambulatory 09/19/2023 11:15 AM EST Treatment [facility] [address] [place] [address] Meme Breen, PT [address] [place] [address] [facility] Start: 09-15-2023 End: 09-15-2023 ambulatory 09/15/2023 11:45 AM EST Treatment [facility] [address] [place] [address] Meme Breen, PT [address] [place] [address] [facility] Start: 09-12-2023 End: 09-12-2023 ambulatory 09/12/2023 11:15 AM EST Treatment [facility] [address] [place] [address] Meme Breen, PT [address] [place] [address] [facility] Start: 09-10-2023 End: 09-10-2023 ambulatory 09/10/2023 10:00 AM EST Treatment [facility] [address] [place] [address] Meme Breen, PT [address] [place] [address] [facility] Start: 09-04-2023 End: 09-04-2023 ambulatory [facility] Comment on above: Sacroiliac joint scooter n (Primary Dx); Lumbar paraspinal muscle spasm; Lumbar radiculopathy, chronic; Idiopathic scoliosis of thoracolumbar region Start: 09-01-2023 End: 09-01-2023 ambulatory 09/01/2023 2:00 PM EST Evaluation [facility] [address] [place] [address] Meme Breen, PT [address] [place] [address] Lumbar paraspinal muscle spasm (Primary Dx); Lumbar radiculopathy, chronic; Idiopathic scoliosis of thoracolumbar region; Acute left-sided low back pain without sciatica; Sacroiliac joint pain [facility] PT Comment on above: Lumbar paraspinal mu scle spasm (Primary Dx); Lumbar radiculopathy, chronic; Idiopathic scoliosis of thoracolumbar region; Acute left-sided low back pain without sciatica; Sacroiliac joint pain Start: 11-28-2022 Glaucoma screening Diabetes: R etinopathy Screening [facility] Start: 09-17-2022 Hemoglobin A1c measurement Diabetes: Hemoglobin A1C [facility] Start: 08-09-2022 Urine screening for protein Diabetes: Urine Protein Screening [facility] Start: 03-21-2022 Registered Recurring Registered Recu rring [facility] [place] Start: 02-23-2022 MRI of right shoulder MR shoulder RT wo con [facility] Start: 02-23-2022 End: 02-23-2022 Patient encounter procedure Departed Clinical [facility]-MRI [place] Start: 12-28-2019 Pneumococcal Vaccine : 65+ Years (3 - PPSV23 or PCV20) Pneumococcal Vaccine: 65+ Years (3 - PPSV23 or PCV20) [facility] Start: 12-28-2019 Pneumococcal Vaccine : 65+ Years (3 of 3 - PPSV23 or PCV20) Pneumococcal Vaccine: 65+ Years (3 of 3 - PPSV23 or PCV20) [facility] Start: 1950 Screening for malign ant neoplasm of colon [facility] XR Hip - left 3 Views XR hip lef t 2 or 3 views Imaging Routine Sacroiliac joint pain 08/22/2023 11:02 AM EST [facility] Work Phone: XR Lumbar spine View s W flexion and W extension XR lumbar spine 4+ views w flexion extension Imaging Routine Acute left-sided low back pain without sciatica 08/22/2023 11:02 AM EST [facility] Immunizations Immunization Date Immunization Notes Care Provider Fa cility 05-16-2023 zoster vaccine recombinant Marquis WALTON Work Phone: [facility] 04-11-2023 Influenza, Seasonal, Quadrivalent, Adjuvanted Marquis WALTON Work Phone: [facility] 03-12-2023 zoster vaccine recombinant Marquis WALTON Work Phone: [facility] 06-13-2021 COVID-19 mRNA, Comir sam (Pfizer) DO Luisa Kim Work Phone: [facility] 10-19-2020 Do not use COVID-19 Pfizer 2 dose Velasquez Olexa Other [facility] 09-29-2020 Do not use COVID-19 Pfizer 2 dose Velasquez Olexa Other [facility] 01-19-2018 pneumococcal conjuga te vaccine, 13 valent Marquis WALTON Work Phone: [facility] 11-07-2016 tetanus toxoid, redu murray diphtheria toxoid, and acellular pertussis vaccine, adsorbed Marquis WALTON Work Phone: [facility] Work Phone: 12-27-2014 pneumococcal polysaccharide vaccine, 23 valent Marquis WALTON Work Phone: [facility] Payers Date Payer Category Payer Self-pay [id number] 2022 Private Health Insurance [employer] [id number] 2022-Present [address] [address] [place] [address] Supplement [id number] 2017 Medicare MEDICARE MEDICAR E PART B [id number] 2017-[place] [address] Medicare [id number] 1959 Medicare [id number] 1959 Private Health Insurance CLI [id number] 2.16.840.1.998965.19 1959 Private Health Insurance [id number] 1959 Unknown 1952 Unknown [id number] 2.16.840.1.699588.3.579.2. 593 1952 Unknown [id number] 2.16.840.1.424468.3.579.2. 593 1952 Unknown [id number] 2.16.840.1.171857.3.579.2. 593 1952 Unknown [id number] 2.16.840.1.459594.3.579.2. 593 1952 Unknown [id number] 2.16.840.1.779045.3.579.2. 593 1952 Unknown [id number] 2.16.840.1.635223.3.579.2. 356 1952 Unknown [id number] 2.16.840.1.699517.3.579.2. 1259 1952 Unknown [id number] 2.16.840.1.958180.3.579.2. 1259 1952 Unknown [id number] 2.16.840.1.573236.3.579.2. 1259 1952 Unknown [id number] 2.16.840.1.272444.3.579.2. 1259 1952 Unknown [id number] 2.16.840.1.999249.3.579.2. 125 1952 Unknown [id number] 2.16.840.1.410688.3.579.2. 1259 1952 Unknown [id number] 2.16.840.1.777443.3.579.2. 125 1952 Unknown [id number] 2.16.840.1.723060.3.579.2. 1258 1952 Unknown [id number] 2.16.840.1.292201.3.579.2. 1258 1952 Unknown [id number] 2.16.840.1.530567.3.579.2. 1258 1952 Unknown [id number] 2.16.840.1.085492.3.579.2. 1258 1952 Unknown [id number] 2.16.840.1.496547.3.579.2. 1258 1952 Unknown [id number] 2.16.840.1.645167.3.579.2. 1258 1952 Unknown [id number] 2.16.840.1.783000.3.579.2. 1258 1952 Unknown [id number] 2.16.840.1.824868.3.579.2. 1258 1952 Unknown [id number] 2.16.840.1.652515.3.579.2. 1258 1952 Unknown [id number] 2.16.840.1.145673.3.579.2. 1258 1952 Unknown [id number] 2.16.840.1.264319.3.579.2. 1258 1952 Unknown [id number] 2.16.840.1.708257.3.579.2. 1259 Unknown [facility] [id number] Unknown [id number] 2.16.840.1.183278.3.579.2. 531 Unknown [id number] 2.16.840.1.976437.3.579.2. 531 Unknown [id number] 2.16.840.1.940822.3.579.2. 531 Social History Date Type Detail Facility Unknown if ever smoked [facility] Other Start: 07-02-2023 End: 08-22-2023 Sex Assigned At [facility] Start: 12-10-2021 End: 02-26-2023 Tobacco smoking status NHIS Ex-smoker (finding) [facility] Start: 1950 Sex Assigned At Female F [facility] Start: 07-21-1969 End: 07-21-1995 History of tobacco use Current smoker [facility] Start: 07-21-1969 End: 07-21-1995 History of tobacco use Cigarette Smoker [facility] Start: 02-26-2023 End: 07-02-2023 Cigarettes smoked current (pack per day) - Reported 1 [facility] History of tobacco use Passive smoker [facility] Start: 02-26-2023 Tobacco use and exposure Smokeless tobacco non-user [facility] Start: 08-22-2023 Alcohol intake Ex-drinker (finding) [facility] How often to you hav e a drink containing alcohol? Monthly or less [facility] How many standard drinks containing alcohol do you have on a typical day? 1 or 2 [facility] How often do you hav e 6 or more drinks on 1 occasion? Never [facility] Start: 12-08-2022 Tobacco Comment Past smoking h x unknown [facility] Start: 12-08-2022 Alcohol Comment caffeine: 2-3 cups per day coffee, tea [facility] Start: 12-04-2022 Gender identity Identifies as female gender (finding) [facility] Medical Equipment Procedure Code Equipment Code Equipment Origin al Text Equipment Identifier Dates One test strip b y finger stick once daily [id number] Start: 12-19-2022 Clinical Notes 11-18-2009 to 09-04-2023 Meme Breen PT - 09/04/2023 11:15 AM ISABLELE Lozano - 08/22/2023 10:30 AM EST Note Date & Type Note Facility 09-04-2023 History of Presen t illness Narrative Physical Therapy Physical Therapy Evaluation Visit Patient Name: Christina Welsh Today's Date: 09/04/2023 Encounter Diagnoses Name Primary? Sacroiliac joint pain Yes Lumbar paraspinal muscle spasm Lumbar radiculopathy, chronic Idiopathic scoliosis of thoracolumbar region Time In: 11:15 pm Time out: 12:00 pm Supervised Time: 45 Min Total Time: 45 Min Visit Number: 2 (Medicare-Visits based on medical necessity) Chief Complaint: Chronic and progressive thoracolumbar pain without significant radiculopathy PRECAUTIONS: As tolerated Subjective History: 72 yo female presents with greater than 1 year of thoracolumbar pain with prior X-Rays that demonstrate mild to moderate levoscoliosis of the thoracolumbar spine centered at L1 along the moderate disc height loss L5-S1 and mild multilevel DDD/DJD. Was fitted for a clavicle strap to assist with postural thoracic kyphosis. Pain: Reports reported as 25% improved at cervical, thoracic, and lumbar spine following first session. Good knowledge of and reports compliance to initial HEP. Pain/stiffness throughout spine up to 3/10 today. Objective: Examination performed on 09/01/23 The patient presents with subacute/chronic thoracolumbar pain. Demonstrates moderate forward head and rounded shoulder postural dysfunction with excessive thoracic kyphosis and reduced lumbar lordosis. Utilizing 1/4 inch heel lift on left from prior episode of PT several year ago. Increased to 3/8 inch lift with initially fair improvement in gait quality. Patient's LE mechanical assessment demonstrates mild hip/lumbar spine flexion with gait. Lumbar flexion 50 degrees, lumbar extension 10 degrees, side-bending 15 degrees. Hip extension was 10 degrees. 90/90 HS length test demonstrated moderate trunk and LE flexibility deficit at -15 degrees from full knee extension. There was moderate increased paraspinal tone through the thoracolumbar and lumbosacral spine. Positive PA testing with reproduction of familiar lumbar spine pain. Negative SLUMP/SLR examination with normal dermatome and myotome testing. The patient had increased pain with extended static standing and walking with minimal pain with sitting and lying consistent with lumbar stenosis condition. The patient's Back Index scored 56 indicative of moderate functional impairment consistent with PT examination findings Therapy Diagnosis: The patient's primary functional limitation is associated with changing and maintaining body position with regard to the lumbar spine with moderate impairment via Back Index consistent with PT examination findings Functional Limitations: Moderate right LBP, spasm, and lumbar right LE radiculopathy. Moderate decreased tolerance to ADL, household management, work, sleep, and recreation Prior Level of Function ADLs: Independent Recreation: Active with several dogs Employment: Retired INTERVENTIONS Manual: Grade I/II cervical and lumbar PA, mobilization, STM for improvement of tissue tone and pain (20 Min) Therapeutic Exercise: Per Exercise Grid found in patient documents including cervical and lumbar flexion-based flexibility, core strength, ergonomic, and postural program to assist senior living management (15 Min) Therapeutic Activity: Exercises to improve dynamic activities, functional tasks, functional mobility to return to prior activity level (PRN) Neuromuscular Re-education: Neuromuscular reeducation including muscle facilitation, ergonomic and postural training, core strengthening (10 Min-including supine and side-lying MET 10 second hold and relax program 3-5 repetitions in standard cervical/lumbar spinal distribution) Modalities: Electrical Stimulation/Ice prone over 2-3 pillows post session IFC High/Low Sweep for inflammation and pain control (PRN Min); UltraSound-1 MHz 1.5 w/cm2 at L4-S1 disc interspaces (PRN); Mechanical lumbar traction for decompression (PRN) Goals: Short Term Goals: To be met by 11/18/23 The patient to demonstrate 50% reduction in pain to at worst 4/10 intensity with good reduction in sciatica symptoms in 1-2 weeks and no sciatica in 2-4 weeks The patient to achieve 90/90 HS length testing of <15 degrees from full knee extension as demonstration of improvement in trunk and LE flexibility with core and LE strength improvements to 4+/5 in 4-8 weeks The patient to score <20% residual functional impairment via Back Index f/u difficulty questionnaire in 4-6 weeks The patient to demonstrate good compliance to ergonomic and postural recommendations and have prophylactic management plan in place including routine home management via flexibility and strength exercises to reduce risk of future exacerbations to be met by conclusion of PT expected in 4-8 weeks Rehab Potential: Good PT Assessment: The patient has participated in 2 outpatient PT sessions since start of care on 09/01/23 for chronic and progressive thoracolumbar pain exacerbated by moderate levoscoliosis and thoracic kyphosis per Marquis Ang PA-C. Reports reported as 25% improved at cervical, thoracic, and lumbar spine following first session. Good knowledge of and reports compliance to initial HEP. Pain/stiffness throughout spine up to 3/10 today. Denies pain post session. Reviewed and progressed exercises without issue. Remains appropriate per PT POC Plan: Recommend outpatient PT 1-3 times/week for up to 8 weeks per above PT POC pending patient progress and medical necessity standards (09/01/23-DBO) I hereby deem this POC medically necessary. Please sign below and fax back to the number below. Physician Signature: ____ Date: documented in this encounter [facility] 08-22-2023 History of Presen t illness Narrative Images from the original note were not included. HISTORY OF PRESENT ILLNESS: EST PT Christina Welsh is an 72 y.o. @ female. EST PT WITH NEW C/O LBP/UPPER BACK FOR YRS- PT STATES SHE HAS SCOLIOSIS AND FLAT FEET THAT SHE HAS BEEN DEALING WITH HER ENTIRE LIFE- DR KIM/JOSÉ ALONZO TX; XRAY LUMBAR SPINE/MUSCLE RELAXERS XRAY LUMBAR SPINE WITH FLEX/EXT/LT HIP 08/22/23/CHANGE XRAY LUMBAR SPINE 02/07/23 CHANGE NO MRI TACK DRILLER FOR YRS NO CORTISONE INJ NO MDP/PREDNISONE PT NOTES LEFT SIDED LOW BACK PAIN- CONSTANT ACHINESS- INCREASE SYMPTOMS WITH CLEANING HOUSE/STANDING- RARE RADIATING PAIN DOWN LT LEG - +TYLENOL/IBUPROFEN 800MG - OCCASIONAL N/T DOWN B/L ARMS- NOTE LIMITED ROM- C/O HEADACHES- PT HAS A BRACE THAT SHE BOUGHT FOR HER UPPER BACK; STATES HE DOES NOT KEEP HER SHOULDERS BACK LIKE SHE WOULD LIKE Back Pain This is a chronic problem. The current episode started more than 1 year ago. The problem occurs daily. The problem has been waxing and waning. The symptoms are aggravated by bending, standing and twisting. ALLERGIES: Allergies Allergen Reactions Wellbutrin [Bupropion] Increased depression HOME MEDICATIONS: Current Outpatient Medications Medication Instructions Ascorbic Acid (vitamin C) 1000 MG tablet Every 24 hours atorvastatin (LIPITOR) 40 mg, Oral, Daily betamethasone dipropionate (Diprolene) 0.05 % ointment Apply to affected areas, up to twice a day when flared, do not use one the face, groin, or underarms, 30 day supply busPIRone (BUSPAR) 5 mg, Oral, 4 times daily cyclobenzaprine (FLEXERIL) 5 mg, Oral, 2 times daily fluocinonide (Lidex) 0.05 % external solution Apply to affected areas on the scalp qd, 30 day supply fluticasone (Flonase) 50 MCG/ACT nasal spray 2 sprays in each nostril Nasally daily as needed for 90 days glucose blood (ReliOn Prime Test) test strip One test strip by finger stick once daily hydrocortisone (Anusol-HC) 2.5 % rectal cream Rectal, 4 times daily PRN hydrocortisone (ANUSOL-HC) 25 mg, Rectal, 4 times daily PRN ibuprofen 800 MG tablet Every 8 hours levothyroxine (SYNTHROID, LEVOXYL) 100 mcg, Oral, Daily before breakfast liothyronine (CYTOMEL) 5 mcg, Oral, Daily lisinopril 10 mg, Oral, Daily Magnesium 500 mg, Oral, Every 24 hours metFORMIN (GLUCOPHAGE) 500 mg, Oral, Daily with breakfast pantoprazole (PROTONIX) 40 mg, Oral, Daily before breakfast Premarin 0.5 g, Vaginal, Daily, Use daily x2 weeks then use 2 times weekly semaglutide (Ozempic, 1 MG/DOSE,) 4 MG/3ML solution pen-injector as directed Subcutaneous once weekly for 30 days traZODone (DESYREL) 50 mg, Oral, Nightly valACYclovir (Valtrex) 1 g tablet take 2 tablets, repeat in 12 hours Orally 2 times for 2 days venlafaxine XR (EFFEXOR XR) 150 mg, Oral, Daily, Do not crush or chew. VITAMIN D-VITAMIN K PO as directed Orally PHYSICAL EXAM: Hip Musculoskeletal Exam Gait Gait is normal. Inspection Leg length disparity: no discrepancy Left Erythema: none Ecchymosis: none Edema: none Deformity: none Deformity comment: Mod thoraco-lumbar scoloisis. Palpation Left Increased warmth: none Tenderness: present Greater trochanteric region pain: mild Pubic rami pain: none Lower lumbar region pain: moderate Lower lumbar region pain comment: SI JOINT Range of Motion Left Left hip range of motion is within functional limits. Active ROM: normal and no pain. Passive ROM: normal and no pain. Strength Left Left hip strength is normal. Extension: 5/5. Flexion: 5/5. Internal rotation: 5/5. External rotation: 5/5. Adduction: 5/5. Abduction: 5/5. Neurovascular Left Left hip neurovascular exam is normal. Pulses - PT: normal Posterior tibial: 2+ Special Tests Left MARCE test (left): positive Special tests additional comments: + gaenslen's test on left. . Neg SLR for radiculopathy + mild soreness myofascial paravertebral lumbar and thoracic. Neg Fadirs General Constitutional: appears stated age Labored breathing: no Psychiatric: normal mood and affect Neurological: alert and oriented x3 Skin: intact Lymphadenopathy: none Vitals: Body mass index is 25.18 kg/m . Tobacco Use: Medium Risk (08/22/2023) Patient History Smoking Tobacco Use: Former Smokeless Tobacco Use: Never Passive Exposure: Past Alcohol Use: Not At Risk (07/02/2023) AUDIT-C Frequency of Alcohol Consumption: Monthly or less Average Number of Drinks: 1 or 2 Frequency of Binge Drinking: Never IMAGING: XR hip left 2 or 3 views Imaging Result: XR lumbar spine 4+ views w flexion extension Imaging Result: Procedures Orders Placed This Encounter Procedures XR hip left 2 or 3 views Order Specific Question: Reason for exam: Answer: pain XR lumbar spine 4+ views w flexion extension Order Specific Question: Reason for exam: Answer: pain Ambulatory referral to Pain Medicine Standing Status: Future Standing Expiration Date: 02/20/2024 Referral Priority: Routine Referral Type: Consultation Referral Reason: Specialty Services Required Referred to Provider: Roxane Rockwell MD Requested Specialty: Pain Medicine Number of Visits Requested: 1 Ambulatory referral to Physical Therapy Standing Status: Future Standing Expiration Date: 02/20/2024 Referral Priority: Routine Referral Type: Consultation Referral Reason: Consult and Treat Referred to Provider: Meme Breen PT Requested Specialty: Physical Therapy Number of Visits Requested: 1 ASSESSMENT: ICD-10-CM 1. Acute left-sided low back pain without sciatica M54.50 XR lumbar spine 4+ views w flexion extension Ambulatory referral to Pain Medicine Ambulatory referral to Physical Therapy 2. Sacroiliac joint pain M53.3 XR hip left 2 or 3 views Ambulatory referral to Physical Therapy 3. Other idiopathic scoliosis, thoracolumbar region M41.25 PLAN: Point tender and reproducible pain today on exam involves the left SI joint, we discussed x-rays of the left hip, pelvis and lumbar spine. She does have some anterolisthesis L 4 and L5, appears stable with no complaint of radicular symptoms. Patient has myofascial pain paravertebral thoracic and lumbar, does note some temporary relief with massage therapist. Recommend treatments with therapist, patient interested in a clavicle strap to promote good posture. She is aware of the scoliotic changes in her back, but pain today is very localized to the left SI joint, she is agreeable to referral for pain management injection given the length the nature of her symptoms. We will recheck progress in 5 weeks. Questions answered in laymen terms at the bedside. The diagnosis, home exercise plan and any ongoing restrictions/ recommendations reviewed. If unable to be reached in office, I recommend evaluation at nearest Emergency Room if any symptoms worsened or new symptoms develop for requiring urgent evaluation. ISABELLE Phelps documented in this encounter [facility] 07-02-2023 Evaluation note Encounter Date Diagnosis Assessment Notes Jun, Obstructive sleep apnea (ICD-10 - G47.33) She is using and benefiting from treatment. However I think we can do better overall. She does have dry mouth with her nasal pillows and likely has mouth leak. This could be responsible for her breakthrough snoring and breakthrough fatigue, although it is also possible that the apnea itself may not be optimally controlled. After extensive discussion we will try several interventions. First, we will get a download from her current 11 cm fixed pressure setting. Second,I will also get her an order for a chinstrap to see if that can resolve her dry mouth. She had previously failed fullface mask. Third we will readjust settings to minimum 8 maximum 12 auto CPAP and get a download on that new setting. She will return in 2 months or so and will call sooner if problems Jun, BMI 26.0-26.9,adul t (ICD-10 - Z68.26) Weight reduction generally has positive effects on sleep apnea. She has lost weight since her study in 2018, and reports a drop of about 40 pounds since then. It is unlikely that her current apnea severity would be over 15 after this weight loss, since it was only 13 before the weight loss. It does not seem likely she would therefore qualify for [facility] Jun, Dry mouth (ICD-10 - R68.2) Her dry mouth is likely due to leakage. I am hoping a chinstrap resolves this Jun, Other Call if any questions or problems. Patient is advised to work on healthy diet choices and appropriate servings, weight control, regular exercise as directed, and reduce fat intake. Use machine regularly, and keep up with mask changes as needed. Call if problems with mask toleration, increased sleepiness, or poor response to treatment. . [facility] Other 12-08-2022 Evaluation note* Encounter Date Diagnosis Assessment Notes Treatment Notes Treatment Clinical Notes Jun, Tear of right supraspinatus tendon (ICD-10 - M75.101) Jun, Contusion of right shoulder, initial encounter (ICD-10 - S40.011A) Radiographs reviewed with patient as no acute abnormality. We will treat this as a shoulder strain/contusion for now. We will begin gentle motion and strength exercise with hopes that the condition will improve with conservative measures. If pain persists and function is not improving we will need to consider MRI to assess for rotator cuff injury or other intra-articular injury. Jun, Full thickness tear of right subscapularis tendon, initial encounter (ICD-10 - S46.811A) Jun, Subluxation of tendon of long head of biceps (ICD-10 - S43.003A) Jun, Acute pain of right shoulder (ICD-10 - M25.511) [facility] Other 09-13-2022 NoteHISTORY: Bone density screening. COMPARISON: None. PROCEDURE: Imaging of the lumbar spine and bilateral hips was obtained for bone density evaluation. FINDINGS: REGION BMD (g/cm??) YOUNG ADULT T-SCORE AGE-MATCHED Z-SCORE LEFT NECK 0.581 -2.4 -0.7 RIGHT NECK 0.606 -2.2 -0.4 LUMBAR (L1-L4) 0.873 -1.6 0.5 The mean BMD and corresponding T-score listed above indicate: Osteopenia and places the patient at a mild to moderate increased risk for fracture. There may be a future risk of developing osteoporosis. Recommend follow-up exam in 1 year, sooner as clinically necessary. 10 year fracture risk according to FRAX score of 13% for major osteoporotic fracture and 2.8% for hip fracture. Comment: The T-score is the primary focus of the interpretation of a patient???s bone mineral density measurement. The T-score is the number of standard deviations and individual is above or below the mean value for a young female having normal bone mass. The WHO defines osteoporosis based on the T-score value: +1.0 to -0.9 : Normal bone mass -1.0 to -2.5 : Osteopenia and thus may be at future risk of fracture. -2.6 to -5.0 : Osteoporosis and at significantly increased risk of fracture. IMPRESSION: OSTEOPENIA : ONE YEAR FOLLOW-UP RECOMMENDED Report reported and signed by Abhi Jefferson on 04/02/2022 1520[facility]22-20[facility] Evaluation note* Encounter Date Diagnosis Assessment Notes Treatment Notes Treatment Clinical Notes Feb, Displaced fracture of lateral end of right clavicle, subsequent encounter for fracture with routine healing (ICD-10 - S42.031D) Feb, Tear of right supraspinatus tendon (ICD-10 - M75.101) MRI reviewed with patient as suprapinatus tear, subscapularis tear, and biceps subluxation. Discussed treatment as living with condition versus surgical treatment of arthroscopy with open rotator cuff repair or reverse total shoulder arthroplasty. Advised based on the appearance of the rotator cuff on MRI, there is some increased concern for cuff failure post surgery based on the thinness of the tissue/severity of her tears. The other surgical option includes reverse total shoulder arthroplasty. Surgical procedures, risks, recovery and restrictions discussed in detail for both surgical options. Patient will consider her options and call us if she wishes to pursue surgery. For now she opts to live with condition, understanding a tear may worsen over time to the point that it becomes unrepairable. Formal therapy order provided. Feb, Full thickness tear of right subscapularis tendon, initial encounter (ICD-10 - S46.811A) Feb, Subluxation of tendon of long head of biceps (ICD-10 - S43.003A) Feb, Pre-op exam (ICD-10 - Z01.818) [facility] Other 08-02-2022 Evaluation note* Encounter Date Diagnosis Assessment Notes Treatment Notes Treatment Clinical Notes Feb, Displaced fracture of lateral end of right clavicle, subsequent encounter for fracture with routine healing (ICD-10 - S42.031D) Xrays were reviewed with patient in detail. As far as the clavicle fracture, xrays show good healing. Feb, Internal derangement of right shoulder (ICD-10 - M24.811) I have a high suspicion of a rotator cuff tear based on the history of symptoms and physical exam findings. An MRI will be necessary to plan further treatment options and potential surgey. [facility] Other 05-06-2022 NoteHISTORY: Dizziness, headaches PROCEDURE: [facility] VCT 64. Without IV contrast, images of the brain were performed. FINDINGS: No worrisome intra- or extra-axial mass lesions, mass effect or hemorrhage are identified. No evidence of major vessel ischemia is noted. Ventricular size is normal for this age, and commensurate with the cerebral sulci. Calvarium, mastoid air cells, paranasal sinuses and orbital contents are unremarkable. IMPRESSION: 1. Normal brain. No intracranial hemorrhage, mass or intra axial edema. 2. Normal mastoid air cells and paranasal sinuses. Report reported and signed by Donald Jeter on 11/23/2021 [id number] [id number] History general Narrative - Reported* Type Description Date Medical History type II diabetes Medical History no thyroid Surgical History left wrist 11/2009 Surgical History knee arthroscopy 2005 Surgical History hysterectomy 07/2012 Surgical History thyroidectomy, complete Hospitalization History see above [facility] Other 05-01-2010 History general Narrative - Reported* Type Description Date Medical History type II diabetes Medical History no thyroid Medical History Obstructive sleep apnea Medical History GERD Surgical History left wrist 11/2009 Surgical History knee arthroscopy 2006 Surgical History hysterectomy 07/2012 Surgical History thyroidectomy, complete Hospitalization History see above [facility] Other Evaluation noteNo assessment information available [facility] Work Phone: Evaluation note* Diagnosis Acute left-sided low back pain without sciatica- Primary Sacroiliac joint pain Disorders of sacrum Other idiopathic scoliosis, thoracolumbar region documented in this encounter [facility] HealthcareEvaluation note* Diagnosis Lumbar paraspinal muscle spasm- Primary Other symptoms referable to back Sacroiliac joint pain Disorders of sacrum Lumbar radiculopathy, chronic Idiopathic scoliosis of thoracolumbar region documented in this encounter [facility] HealthcareEvaluation note* Diagnosis Sacroiliac joint pain- Primary Disorders of sacrum Lumbar paraspinal muscle spasm Other symptoms referable to back Lumbar radiculopathy, chronic Idiopathic scoliosis of thoracolumbar region documented in this encounter [facility] HealthcareReason for referral (narrative)* Consultation (Routine) - Authorized Specialty Diagnoses / Procedures Referred By Contac t Referred To Contact Physical Therapy Diagnoses Acute left-sided low back pain without sciatica Sacroiliac joint pain Procedures OK OFFICE/OUTPATIENT [facility] 60 MINUTES Marquis Ang PA [address] [facility] [address] [place] [address] Meme Breen, PT [address] [place] [phone] Referral ID Status Reason Start Date Expiration Date Visits Requested Visits Authorized [id number] Authorized Consult and Treat 08/22/2023 02/18/2024 10 10 * Consultation (Routine) - Pending Review Specialty Diagnoses / Procedures Referred By Contac t Referred To Contact Pain Medicine Diagnoses Acute left-sided low back pain without sciatica Procedures OK OFFICE/OUTPATIENT [facility] 60 MINUTES Marquis Ang PA [address] [facility] [address] [place] [address] Roxane Rockwell MD [address] [facility], [address] [place] [address] Referral ID Status Reason Start Date Expiration Date Visits Requested Visits Authorized [id number] Pending Review Specialty Services Required 08/22/2023 02/18/2024 1 1 Scheduling Instructions Referral to Dr. Coburn @ [facility]- Possible Lt SI inj; please call pt to schedule [facility] Chief Complaint and Reason for Visit Chief Complaint S42.031A s42.031d m24.811 MEDICARE/tear of right supraspinatus Chief Complaint MEDICARE/tear of rig ht supraspinatus Chief Complaint R01.1 Chief Complaint MEDICARE/low back pa in Family History No Family History Records Found Relationship Condition Age at Onset Recorded Date/T christie father Vaz's esophagus Unknown Not Specified Diabetes mellitus Unknown Advance Directives No Advanced Directives Records Found Advance Directive Response Recorded Date/ Time Advance Directives No May 12, 2017 5:01pm Advance Directive Response Recorded Date/ Time Advance Directives No May 12, 2017 4:01pm Latest Code Status on File Code Status Date Activated Date Inactivated Comments Full Code 07/02/2023 10:49 AM Latest Code Status on File Code Status Date Activated Date Inactivated Comments Full Code 07/02/2023 10:49 AM Summary Purpose Additional Source Comments REASON FOR VISIT (unrecogniz ed section and content) Reason Comments Pain Specialty Diagnoses / Procedures Referred By Contac t Referred To Contact Physical Therapy Diagnoses Acute left-sided low back pain without sciatica Sacroiliac joint pain Procedures OK OFFICE/OUTPATIENT [facility] 60 MINUTES Marquis Ang, PA [address] [place] [address] Meme Breen, PT [address] [place] [phone] Referral ID Status Reason Start Date Expiration Date Visits Requested Visits Authorized [id number] Authorized Consult and Treat 08/22/2023 02/18/2024 30 30 Care Teams (unrecognized sec tion and content) Team Status: Inactive Member Role Status Dates Luisa Kim DO Primary Care Provider Active Velasquez Lam MD Attending Provider Active Team Status: Active Member Role Status Dates Luisa Kim DO Primary Care Provider Active Velasquez Lam MD Attending Provider Active Team Status: Active Member Role Status Dates Luisa Kim DO Primary Care Provider Active Team Status: Inactive Member Role Status Dates Luisa Kim DO Primary Care Provider Active ANGEL Tejeda Attending Provider Acti ve Team Status: Inactive Member Role Status Dates Luisa Kim DO Primary Care Provider Active José Alonzo PA-C Attending Provider Active 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 Relationship Specialty Start Date End Date Luisa Kim DO [address] [place] [address] PCP - ACO Reach 12/12/22 Luisa Kim DO [address] [place] [address] PCP - General Internal Medicine 08/21/23 Meme Gong MD [address] [place] [address] Referring Physician Sleep Medicine 07/02/23 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 Relationship Specialty Start Date End Date Luisa Kim DO [address] [place] [address] PCP - ACO Reach 12/12/22 Luisa Kim DO [address] [place] [address] PCP - General Internal Medicine 08/21/23 Meme Gong MD [address] [place] [address] Referring Physician Sleep Medicine 07/02/23 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 Relationship Specialty Start Date End Date Luisa Kim DO [address] [place] [address] PCP - ACO Reach 12/12/22 Luisa Kim DO [address] [place] [address] PCP - General Internal Medicine 08/21/23 Meme Gong MD [address] [place] [address] Referring Physician Sleep Medicine 07/02/23 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 Relationship Specialty Start Date End Date Luisa Kim DO [address] [place] [address] PCP - ACO Reach 12/12/22 Luisa Kim DO [address] [place] [address] PCP - General Internal Medicine 08/21/23 Meme Gong MD [address] [place] [address] Referring Physician Sleep Medicine 07/02/23 Goals (unrecognized section and content) Goals may be documented in a n alternate section INFORMATION SOURCE (unrecogn ized section and content) DATE CREATED AUTHOR 04/03/2022 [facility] dical Specialist DATE CREATED AUTHOR AUTHOR'S ORGANIZ ATION 06/22/2022 [facility] DATE CREATED AUTHOR AUTHOR'S ORGANIZ ATION 03/26/2023 [facility] DATE CREATED AUTHOR AUTHOR'S ORGANIZ ATION 07/26/[address] [facility] DATE CREATED AUTHOR AUTHOR'S ORGANIZ ATION 10/31/2023 [facility] dical Specialists [place] FOR RECORDS PERTAINING TO PATIENTS WHO ARE OR HAVE BEEN ENROLLED IN A CHEMICAL DEPENDENCY/SUBSTANCEABUSE PROGRAM, SOME INFORMATION MAY BE OMITTED. This clinical summary was aggregated from multiple sources. Caution should be exercised in using it in the provision of clinical care. This summary normalizes information from multiple sources, and as a consequence, information in this document may materially change the coding, format and clinical context of patient data. In addition, data may be omitted in some cases. CLINICAL DECISIONS SHOULD BE BASED ON THE PRIMARY CLINICAL RECORDS. [facility]. provides no warranty or guarantee of the accuracy or completeness of information in this document.
--- NOTE | 2023-11-03 21:59 | XR_ITS ---
[facility] [id number] Patient Name: CHRISTINA WOODWARD MRN: [id number] date: 1950 Sex: F Assigned Patient Location: ER Current Patient Location: Accession/Order Number: [id number] Exam Date: 11/03/2023 22:06 Report Date: 11/03/2023 22:23 At the request of: ELLY MARKER Procedure: XR hand RT min 3V EXAM: XR hand RT min 3V HISTORY: The patient is a 72-year-old female, puncture wound R/o FB COMPARISON: None. FINDINGS: No radiopaque foreign bodies are seen. No fractures or dislocations are seen. There is severe osteoarthritic narrowing of the thumb carpometacarpal joint. There is also osteoarthritic narrowing of the DIP joints, particularly of the index and long fingers. XR/XR hand RT min 3V IMPRESSION: 1. No radiographic findings of acute trauma. 2. Osteoarthritis. Electronically authenticated by: MALAIKA NORTH Date: 11/03/2023 22:23
[2023-11-03] MEDS: AMOXICILLIN/POTASSIUM CLAV 1 TAB TABLET PO (22:20)
[2023-11-03] MEDS: ADACEL DIPH,PERTUSS(ACELL),TET VAC/PF 0.5 ML ADULT SYRINGE IM (22:21)
--- NOTE | 2023-11-03 22:37 | ED.WOUNDLAC1 ---
HPI - Wound/Laceration General Chief Complaint: Wound/Laceration Stated Complaint: Laceration/Puncture Time Seen by Provider: 11/03/23 21:44 Source: patient Mode of arrival: walk-in Limitations: no limitations History of Present Illness HPI narrative: This 72-year-old female who is right-hand dominant presents for evaluation of a puncture wound to her right hand. The patient and her were repairing a metal fence today because her dogs were escaping. She accidentally punctured her right hand or right index finger metacarpal with the wire. She states she washed her hand after that time but since then she has had some pain and swelling in the hand. There is been no drainage. She does not she has had a tetanus shot in the past 5-7 years. She has not had any fever. There is no lymphangitic streaking. She states that she was going to wait until Friday when she has an appointment with her family physician but talk to her sister who encouraged her to come to the emergency department instead. Related Data Allergies Allergy/AdvReac Type Severity Reaction Status Date / Time No Known Drug Allergies Allergy Verified 11/03/23 21:41 Review of Systems ROS Status of ROS 10 or more systems reviewed and unremarkable except as noted in history and below Exam Narrative Exam Narrative: Nurses note and vital signs reviewed and patient is not hypoxic. Blood pressure is mildly elevated at 143/90 General: The patient appears well and in no apparent distress. Patient is resting comfortably on cart. Skin: Warm, dry, no pallor noted. There is no rash noted. Head: Normocephalic, atraumatic Eye: Normal conjunctiva, no drainage, EOMI. PERRL Cardiovascular: Regular Rate and Rhythm Respiratory: Patient is in no distress, no accessory muscle use, lungs are clear to auscultation, no wheezing, rales or rhonchi. Musculoskeletal: There Is a small, less than 0.5 cm puncture wound on the dorsal aspect of the right hand at the midportion of the 1st metacarpal. There is some mild swelling. There is no drainage. There is no bruising noted. There is no visible foreign body. Patient is able to approximate thumb and all fingers and make a tight fist. Neurological: A&O x4, normal speech Psychiatric: Cooperative Constitutional Vital Signs, click to edit/add: Last Vital Signs Temp 98.4 F 11/03/23 21:37 Pulse 77 11/03/23 21:37 Resp 18 11/03/23 21:37 BP 143/90 H 11/03/23 21:37 Pulse Ox 96 11/03/23 21:37 O2 Del Method Room Air 11/03/23 21:37 Course Vital Signs Vital signs: Vital Signs Temperature 98.4 F 11/03/23 21:37 Pulse Rate 77 11/03/23 21:37 Respiratory Rate 18 11/03/23 21:37 Blood Pressure 143/90 H 11/03/23 21:37 Pulse Oximetry 96 11/03/23 21:37 Oxygen Delivery Method Room Air 11/03/23 21:37 Temperature 98.4 F 11/03/23 21:37 Pulse Rate 77 11/03/23 21:37 Respiratory Rate 18 11/03/23 21:37 Blood Pressure 143/90 H 11/03/23 21:37 Pulse Oximetry 96 11/03/23 21:37 Oxygen Delivery Method Room Air 11/03/23 21:37 MDM - Wound/Laceration MDM Narrative Medical decision making narrative: This 72-year-old female presents for evaluation after she accidentally punctured her right hand on the dorsal aspect of her hand with a wire while she and her were repairing a fence earlier today. She has some mild swelling and tenderness in this area. There is no drainage. She had washed it did not soaked it. I made a warm Hibiclens solution and the patient soaked her hand for approximately 30 minutes. X-ray of the extremity shows I see arthritis but no foreign body or bony erosion. At this time I do not see any sign of tendinitis or acute infection but she was empirically treated with a dose of oral Augmentin and tetanus was updated. She'll be discharged home with prescription for Augmentin to use for the next 7-10 days recommendation for soaking her hand in warm Epsom salt water 3-4 times a day until her symptoms resolve. She does have a follow-up appointment in 2 days with her family physician. She was encouraged to return to emergency department for worsening pain and swelling decreased range of motion in her hand or any lymphangitic streaking. Medical Records Medical records narrative: [facility] [id number] XRay Report Signed Patient: CHRISTINA WOODWARD MR#: [id number] : 1950 Acct:[id number] Age/Sex: 72 / F ADM Date: 11/03/23 Loc: ER Attending Dr: Ordering Physician: Elly Meng Date of Service: 11/03/23 Procedure(s): XR hand RT min 3V Accession Number(s): [id number] cc: LUISA KIM ; Elly Meng~ [facility] [place] [facility] [id number] Patient Name: CHRISTINA WOODWARD MRN: [id number] date: 1950 Sex: F Assigned Patient Location: ER Current Patient Location: ER Accession/Order Number: [id number] Exam Date: 11/03/2023 22:06 Report Date: 11/03/2023 22:23 At the request of: ELLY MENG Procedure: XR hand RT min 3V EXAM: XR hand RT min 3V HISTORY: The patient is a 72-year-old female, puncture wound R/o FB COMPARISON: None. FINDINGS: No radiopaque foreign bodies are seen. No fractures or dislocations are seen. There is severe osteoarthritic narrowing of the thumb carpometacarpal joint. There is also osteoarthritic narrowing of the DIP joints, particularly of the index and long fingers. XR/XR hand RT min 3V IMPRESSION: 1. No radiographic findings of acute trauma. 2. Osteoarthritis. Discharge Plan Discharge Stand Alone Forms: Portal Instructions Chief Complaint: Wound/Laceration Clinical Impression: Puncture wound Patient Disposition: Home, Self-Care Time of Disposition Decision: 22:38 Condition: Good Print Language: Bermudian Instructions: Puncture Wound (ED) Additional Instructions: Suture hand in warm Epsom salt water 3-4 times a day for 20-30 minutes at a time. Use antibiotics as directed. Return to emergency department for worsening pain, swelling, streaks up your arm or any concerns. Referrals: LUISA KIM [Primary Care Provider] - 1 week
== END 2023-11-03 22:58 | disposition home or self-care (01) ==
PROVIDERS: Emergency Provider Emergency Medicine; PCP Internal Medicine
DX: S61.431A Puncture wound without foreign body of right hand, initial encounter (principal); Z23 Encounter for immunization; W26.8XXA Contact with other sharp object(s), not elsewhere classified, initial encounter
CPT/HCPCS: 73130; 90471; 90715; 99284

== ENCOUNTER 2024-02-08 14:00 | Emergency (ER) | payer MEDICARE, SELFPAY ==
[2024-02-08 14:03] VITALS: BP 171/103; PULSE 98; TEMP 36.9; O2SAT 93; BMI 27.8
--- OUTSIDE RECORDS SUMMARY | 2024-02-08 14:07 | XMS_ITS | CCD ---
Author Organization [facility] Care Team Providers Care Product Representative Name Role Phone Velasquez Lam Unavailable DO Luisa Kim Primary Care Provider MD Velasquez Lam Attending Provider [phone] JULIO, DR MORAN Primary Care Unavailable JULIO, DR MORAN Admitting Unavailable JULIO, DR MORAN Attending Unavailable JULIO, DR MORAN Consulting Unavailable JULIO, DR MORAN Primary Care Unavailable ISABELLE MOON Consulting Unavailable HERMES, DR DAO Attending Unavailable HERMES, DR DAO Admitting Unavailable MALAIKA NORTH Consulting Unavailable BERKLEY GALINDO Consulting Unavailable JULIO, DR MORAN Primary Care Unavailable LENORA CABRERA Attending Unavailable LENORA CABRERA Admitting Unavailable LAN, DR MEME Saunders Consulting Unavailable LENORA CABRERA Consulting Unavailable JULIO, DR MORAN Primary Care Unavailable JULIO, DR MORAN Admitting Unavailable JULIO, DR MORAN Attending Unavailable JULIO, DR MORAN Consulting Unavailable JULIO, DR MORAN Primary Care Unavailable JULIO, DR MORAN Admitting Unavailable JULIO, DR MORAN Attending Unavailable JULIO, DR MORAN Consulting Unavailable DO Luisa Kim Primary Care Provider [phone] MD Velasquez Lam Attending Provider DO Luisa Kim Primary Care Provider ANGEL Valladares Attending Provider Dr. Jairo Downs Primary Care Unavailable DO Luisa Kim Primary Care Provider [phone] RG Alonzo Attending Provider [phone] Meme Gong Unavailable Meme Gong Attending Unavailable [...] Unavailable ANG, MARQUIS Contreras Referring Unavailable NUHA, MMEE Gunderson Attending Unavailable ANG, MARQUIS Contreras Referring Unavailable NUHA, MEME Gunderson Attending Unavailable ANG, MARQUIS Contreras Referring Unavailable NUHA, MEME Gunderson Attending Unavailable ANG, MARQUIS Contreras Referring Unavailable ANG, MARQUIS Contreras Attending Unavailable PETSAILAJA CUI Attending Unavailable LUISA KIM Attending Unavailable NUHA, MEME Gunderson Attending Unavailable ANG, MARQUIS Contreras Referring Unavailable NUHA, MEME Gunderson Attending Unavailable ANG, MARQUIS Contreras Referring Unavailable NUHA, MEME Gunderson Attending Unavailable ANG, MARQUIS Contreras Referring Unavailable LUISA KIM Attending Unavailable SAILAJA VILLA Attending Unavailable Allergies Allergy Classification Reported Allergen(s) Allergy Type Date of Onset Reaction(s) Facility (6 sources) buPROPion Drug Allergy 03-20-2023 [facility] Healthcare Medications Current Medications Medication Drug [...] 180 tablet 3 08/11/2023 Active estrogens, conjugated (senior living) 0.625 mg/ml vaginal cream (2 sources) Estrogen [...] Start: 12-10-2021 take 1 tablet by alec th once daily Levothyroxine (Synthroid) 100 mcg tablet [...] Active Start: 12-10-2021 take 1 capsule by mo ut once daily Venlafaxine (Effexor Xr) 150 mg [...] 02-26-2023 Chronic Other aftercare (1 source) Other exterminator (current) drug therapy; Translations: [OTH RESIDENTIAL CURRENT DRUG THERAPY] Onset: 02-05-2022 Episodic Other aftercare (1 source) [facility] (current) use of oral hypoglycemic drugs; Translations: [RESIDENTIAL USE ORAL HYPOGLYCEMIC DX] Onset: 02-05-2022 Episodic [...] Reference Range Facility BI MAMMOGRAM SCREENING TOMOS ESDRAS BILATERALon 07-17-2023 BI MAMMOGRAM SCREENING TOMOSYNTHESIS BILATERAL [...] IS VERY IMPORTANT TO YOUR HEALTH. THE [place] [employer] GUIDELINES RECOMMEND THAT WOMEN 40 [...] MD Normal Not Available [facility] echo transthoracicon [facility] echo transthoracic [facility] Main [place] [address] [place] [address] Echocardiogram Signed Patient: Mirta Welsh MR#: [id number] : 1950 Acct:[id number] Age/Sex: 72 / F ADM Date: 01/03/23 Loc: Room: Type: [facility] Attending Dr: Ning ORTIZ Ordering Provider: Ning ORTIZ Date of Service: 01/03/23/ [facility] echo transthoracic: murmur. Copies to: Ning Ramos [...] area: LVOT diam: 2.1 cm RV S Joes Luis: EDV(Teich): 6.5 cm2 LVOT area: 3.5 [...] LV V1 VTI: 26.1 cm Transcribed By: SCV Performed At: 01/03/23 1557 Signed By: Adrianne Ramos MD 01/03/23 1638 [facility] FREE T3on 06-18-2022 FREE T3 2.83 pg/mlL Normal 2.18-3.98 [facility] Comment on above: Performed By: #### T SH, FT3, BMP ####[facility] [address] [place], [place] [address]JzDr. Mary Ellen Rolon FREE T4on 06-18-2022 Free T4 [Mass/Vol] 1.03 ng/dL Normal 0.76-1.46 [facility] Comment on above: Performed By: #### F T4 #### [facility] [address] [place], [place] [address] Dr. Mary Ellen Rolon GLYCOHEMOGLOBIN A1Con 2021 ADA RECOMMENDATION SEE BELOW Normal [facility] Comment on above: Result Comment: ADA RECOMMENDED LIMIT 4.0 - 6.0 ADA THERAPEUTIC TARGET < 7.0 ACTION SUGGESTED > 7.0 Performed By: #### A 1C ####[facility] [address] [place] [address]Dr. Ginasreekanth Rolon Glucose [Mass/Vol] 137 mg/dL Normal [facility] Comment on above: Performed By: #### A 1C ####[facility] [address] [place] [address]Dr. Mary Ellen Rolon HbA1c (Bld) [Mass fraction] 6.4 % Critically high 4.5-6.2 [facility] Comment on above: Performed By: #### A 1C ####[facility] [address] [place], [place] [address]Dr. Mary Ellen Rolon PROF CHEM 8 (BAS METB)on Anion gap [Moles/Vol] 11.5 mmol/L Normal [facility] Comment on above: Performed By: #### T SH, FT3, BMP ####[facility] [address]em[address] [place] [address]Dr. Mary Ellen Rolon Calcium [Mass/Vol] 9.2 mg/dL Normal 8.5-10.[address] [facility] Comment on above: Performed By: #### T SH, FT3, BMP ####[facility] [address] [place] [address]Dr. Mary Ellen Rolon Chloride [Moles/Vol] 102 mmol/L Normal 98-107 [facility] Comment on above: Performed By: #### T SH, FT3, BMP ####[facility] Xuytiboxes[address] [place] [address]Dr. Mary Ellen Rolon CO2 [Moles/Vol] 29.5 mmol/L Normal 21.0-32.[address] [facility] Comment on above: Performed By: #### T SH, FT3, BMP ####[facility] [address] [place] [address]Dr. Mary Ellen Rolon Creatinine [Mass/Vol] 0.66 mg/dL Normal 0.55-1.02 [facility] Comment on above: Performed By: #### T ISRAEL FT3, BMP ####[facility] [address] [place] [address]Dr. Mary Ellen Rolon EGFR-AF VENEZUELAN >60 Normal >=60 [facility] Comment on above: Performed By: #### T ISRAEL, FT3, BMP ####[facility] [address]dxsejz[address] [place] [address]Dr. Mary Ellen Rolon EGFR-NON AF VENEZUELAN >60 Normal >=60 [facility] Comment on above: Performed By: #### T ISRAEL FT3, BMP ####[facility] [address] [place], [place] [address]Dr. Mary Ellen Rolon Glucose [Mass/Vol] 120 mg/dL Critically high 74-106 [facility] Comment on above: Performed By: #### T ISRAEL FT3, BMP ####[facility] Zbyket[address] [place], [place] [address]Dr. Mary Ellen Rolon Potassium [Moles/Vol] 4.0 mmol/L Normal 3.5-5.1 [facility] Comment on above: Performed By: #### T ISRAEL FT3, BMP ####[facility] [address] [place], [place] [address]Dr. Mary Ellen Rolon Sodium [Moles/Vol] 139 mmol/L Normal 136-145 [facility] Comment on above: Performed By: #### T ISRAEL FT3, BMP ####[facility] [address] [place], [place] [address]Dr. Mary Ellen Rolon Urea nitrogen [Mass/Vol] 11.0 mg/dL Normal 7.0-18.0 [facility] Comment on above: Performed By: #### T ISRAEL FT3, BMP ####[facility] [address] [place], [place] [address]Dr. Mary Ellen Rolon Urea nitrogen/Creatinine [Mass ratio] 16.7 mg/mg Normal [facility] Comment on above: Performed By: #### T ISRAEL, FT3, BMP ####[facility] [address] [place] [address]W[address]Dr[address] Mary Ellen Rolon TSHon 06-18-2022 TSH 0.734 uIU/mL Normal 0.358-3.740 [facility] Comment on above: Performed By: #### T SH, FT3, BMP ####[facility] [address] [place] [id number]. Mary Ellen Rolon SCREENING MAMMOGRAM W/BERONICA, BILATERAL*on [...] VERY IMPORTANT TO YOUR HEALTH. THE CURRENT [place] [employer] AND [employer]WORK GUIDELINES RECOMMENDS ANNUAL MAMMOGRAPHY BEGINNING AT AGE 40 THIS FACILITY USES A REMINDER SYSTEM TO ENSURE ALL PATIENTS RECEIVE REMINDER NOTIFICATIONS AT THE APPROPRIATE TIME BASED ON THE RECOMMENDATIONS OF THIS EXAM. Board Certified Radiologist. Accredited by the ACR and FDA. Report reported and signed by Abhi Jefferson on 04/02/2022 1442 Normal [facility] [employer] Consultant FREE T3on 02-08-2022 FREE T3 1.70 pg/mlL Critically low 2.18-3.98 [facility] Comment on above: Performed By: #### F T4, VITAD #### [facility] [address] [place] [address] [address] Mary Ellen Rolon GLYCOHEMOGLOBIN A1Con 2021 ADA RECOMMENDATION SEE BELOW Normal [facility] Comment on above: Result Comment: ADA RECOMMENDED LIMIT 4.0 - 6.0 ADA THERAPEUTIC TARGET < 7.0 ACTION SUGGESTED > 7.0 Performed By: #### A 1C #### [facility] [address] [place] [address] [address] Mary Ellen Rolon Glucose [Mass/Vol] 148 mg/dL Normal [facility] Comment on above: Performed By: #### A 1C #### [facility] [address] [place] [address] [address] Mary Ellen Rolon HbA1c (Bld) [Mass fraction] 6.8 % Critically high 4.5-6.2 [facility] Comment on above: Performed By: #### A 1C #### [facility] [address] [place] [address] [address] Mary Ellen Rolon LIPID PROFILEon 02-08-2022 CHOL-HDL RATIO NORM SEE BELOW Normal [facility] Comment on above: Result Comment: 3.3 - 4.4 LOW RISK 4.4 - 7.1 AVERAGE RISK 7.1 - 11.0 MODERATE RISK >11.0 HIGH RISK Performed By: #### T SH, FT3, T4, CMP, LIPID ####[facility] [address]fc[address] [place] [address]Dr. Mary Ellen Rolon Cholesterol [Mass/Vol] 169 mg/dL Normal <=200 [facility] Comment on above: Performed By: #### T SH, FT3, T4, CMP, LIPID ####[facility] [address] [place] [address]Dr. Mary Ellen Rolon Cholesterol in HDL [Mass/Vol] 51 mg/dL Normal 40-60 [facility] Comment on above: Performed By: #### T SH, FT3, T4, CMP, LIPID ####[facility] [address] [place] [address]Dr. Mary Ellen Rolon Cholesterol in LDL [Mass/Vol] 86.8 mg/dL Normal [facility] Comment on above: Performed By: #### T SH, FT3, T4, CMP, LIPID ####[facility] [address] [place] [address]Dr. Mary Ellen Rolon Cholesterol.total/Ch olesterol in HDL [Mass ratio] 3.3 {ratio} Normal [facility] Comment on above: Performed By: #### T SH, FT3, T4, CMP, LIPID ####[facility] [address] [place] [address]Dr. Mary Ellen Rolon HDL NORMAL > or = 60 mg/dl - LO W CARDIOVASCULAR RISK <40 mg/dl - HIGH CARDIOVASCULAR RISK Normal [facility] Comment on above: Performed By: #### T SH, FT3, T4, CMP, LIPID ####[facility] [address] [place] [address]Dr. Mary Ellen Rolon LDL CALC NORMAL SEE BELOW Normal [facility] Comment on above: Result Comment: <100 mg/dl OPTIMAL 100 - 129 mg/dl NEAR OR ABOVE OPTIMAL 130 - 159 mg/dl BORDERLINE HIGH 160 - 189 mg/dl HIGH >190 mg/dl VERY HIGH Performed By: #### T SH, FT3, T4, CMP, LIPID ####[facility] [address] [place] [address]Dr. Mary Ellen Rolon Triglyceride [Mass/Vol] 156 mg/dL Critically high <=150 [facility] Comment on above: Performed By: #### T SH, FT3, T4, CMP, LIPID ####[facility] [address] [place] [address]Dr. Mary Ellen Rolon VLDL CALC 31.2 mg/dL Normal [facility] Comment on above: Performed By: #### T SH, FT3, T4, CMP, LIPID ####[facility] [address]fd[address]mxz[address] [place] [address]Dr. Mary Ellen Rolon MICROALBUMIN, RAND URon 01-19 mALB <1.3 Normal <=30.0 [facility] Comment on above: Performed By: #### M ALBR ####[facility] [address] [place] [address]Dr. Mary Ellen Rolon PROF 14(COMP METB)on 022 Albumin [Mass/Vol] 3.6 g/dL Normal 3.4-5.0 [facility] Comment on above: Performed By: #### T SH, FT3, T4, CMP, LIPID ####[facility] [address] [place] [address]Dr. Mary Ellen Rolon Albumin/Globulin [Mass ratio] 1.1 {ratio} Normal [facility] Comment on above: Performed By: #### T SH, FT3, T4, CMP, LIPID ####[facility] [address] [place] [address]Dr. Mary Ellen Rolon ALP [Catalytic activity/Vol] 77 U/L Normal 46-116 [facility] Comment on above: Performed By: #### T SH, FT3, T4, CMP, LIPID ####[facility] [address]uc[address] [place] [address]Dr. Mary Ellen Rolon ALT [Catalytic activity/Vol] 22 U/L Normal 14-59 [facility] Comment on above: Performed By: #### T SH, FT3, T4, CMP, LIPID ####[facility] [address] [place] [address]Dr. Mary Ellen Rolon Anion gap [Moles/Vol] 11.7 mmol/L Normal [facility] Comment on above: Performed By: #### T SH, FT3, T4, CMP, LIPID ####[facility] [address] [place], [place] [address]Dr. Mary Ellen Rolon AST [Catalytic activity/Vol] 12 U/L Critically low 15-37 [facility] Comment on above: Performed By: #### T SH, FT3, T4, CMP, LIPID ####[facility] X[address] [place], [place] [address]Dr. Mary Ellen Rolon Bilirubin [Mass/Vol] 0.3 mg/dL Normal 0.2-1.0 [facility] Comment on above: Performed By: #### T SH, FT3, T4, CMP, LIPID ####[facility] [address]sooga[address] [place] [address]Dr. Mary Ellen Rolon Calcium [Mass/Vol] 8.6 mg/dL Normal 8.5-10.1 [facility] Comment on above: Performed By: #### T SH, FT3, T4, CMP, LIPID ####[facility] [address]atelkh[address] [place] [address]Dr. Mary Ellen Rolon Chloride [Moles/Vol] 103 mmol/L Normal 98-107 [facility] Comment on above: Performed By: #### T SH, FT3, T4, CMP, LIPID ####[facility] [address]so[address]nydeos[address] [place] [address]Dr. Mary Ellen Rolon CO2 [Moles/Vol] 27.3 mmol/L Normal 21.0-32.[address] [facility] Comment on above: Performed By: #### T SH, FT3, T4, CMP, LIPID ####[facility] Ywcctvxpir[address] [place] [address]Dr. Mary Ellen Rolon Creatinine [Mass/Vol] 0.67 mg/dL Normal 0.55-1.02 [facility] Comment on above: Performed By: #### T SH, FT3, T4, CMP, LIPID ####[facility] [address] [place], [place] [address]Dr. Mary Ellen Rolon EGFR-AF VENEZUELAN >60 Normal >=60 [facility] Comment on above: Performed By: #### T SH, FT3, T4, CMP, LIPID ####[facility] [address]ws[address] [place], [place] [address]Dr. Mary Ellen Rolon EGFR-NON AF VENEZUELAN >60 Normal >=60 [facility] Comment on above: Performed By: #### T SH, FT3, T4, CMP, LIPID ####[facility] [address] [place], [place] [address]Dr. Mary Ellen Rolon Globulin (S) [Mass/Vol] 3.3 g/dL Normal [facility] Comment on above: Performed By: #### T SH, FT3, T4, CMP, LIPID ####[facility] [address] [place], [place] [address]Dr. Mary Ellen Rolon Glucose [Mass/Vol] 166 mg/dL Critically high 74-106 [facility] Comment on above: Performed By: #### T SH, FT3, T4, CMP, LIPID ####[facility] [address] [place] [address]Dr. Mary Ellen Rolon Potassium [Moles/Vol] 4.0 mmol/L Normal 3.5-5.1 [facility] Comment on above: Performed By: #### T SH, FT3, T4, CMP, LIPID ####[facility] [address] [place] [address]Dr. Ginasreekanth Rolon Protein [Mass/Vol] 6.9 g/dL Normal 6.4-8.[address] [facility] Comment on above: Performed By: #### T SH, FT3, T4, CMP, LIPID ####[facility] [address]vaucncssd[address] [place] [address]Dr. Mary Ellen Rolon Sodium [Moles/Vol] 138 mmol/L Normal 136-145 [facility] Comment on above: Performed By: #### T SH, FT3, T4, CMP, LIPID ####[facility] [address]uptplsr[address] [place] [address]Dr. Mary Ellen Rolon Urea nitrogen [Mass/Vol] 12.0 mg/dL Normal 7.0-18.0 [facility] Comment on above: Performed By: #### T SH, FT3, T4, CMP, LIPID ####[facility] Hetxuhyhan[address] [place] [address]Dr. Mary Ellen Rolon Urea nitrogen/Creatinine [Mass ratio] 17.9 mg/mg Normal [facility] Comment on above: Performed By: #### T SH, FT3, T4, CMP, LIPID ####[facility] [address]xew[address]qphm[address] [place] [address]Dr. Mary Ellen Rolon T4on 02-08-2022 T4 [Mass/Vol] 7.00 ug/dL Normal 4.80-13.90 [facility] Comment on above: Performed By: #### T SH, FT3, T4, CMP, LIPID ####[facility] [address] [place] [id number]. Mary Ellen Rolon TSHon 02-08-2022 TSH 3.041 uIU/mL Normal 0.358-3.740 [facility] Comment on above: Performed By: #### F T4, VITAD #### [facility] [address] [place] [address] [address] CSPINE WO [...] by: BERKLEY GALINDO Date: 2022-02-01 17:23 Normal [facility] CT HEAD WO CONon 02-01-2022 CT HEAD [...] by: BERKLEY GALINDO Date: 2022-02-01 17:11 Normal [facility] XR HIP RT 2 3V W PELVISon [...] MALAIKA NORTH Date: 2022-02-01 17:49 Normal [facility] XR HUMERUS RT MIN 2 Von 01-18 [...] by: MALAIKA NORTH Date: 2022-02-01 17:47 Normal [facility] XR KNEE BETTYE 4V or >on 2021 [...] MEME MONTENEGRO Date: 2021-10-19 16:39 Normal [facility] XR RIBS RT PA Juliet 2 XR [...] MEME MONTENEGRO Date: 2021-10-19 16:41 Normal [facility] CBC AUTO DIFFon 08-09-2021 BASO # 0.0 103/ul Normal 0.0-0.1 [facility] Comment on above: Performed By: #### C BC ####[facility] [address] [place], [place] [address]Dr. Mary Ellen Rolon Basophils/100 WBC (Bld) 0.4 % Normal 0.2-2.0 [facility] Comment on above: Performed By: #### C BC ####[facility] [address]ttsf[address] [place], [place] [address]Dr. Mary Ellen Rolon EO # 0.5 103/ul Normal 0.0-0.7 [facility] Comment on above: Performed By: #### C BC ####[facility] [address] [place], [place] [address]Dr. Mary Ellen Rolon Eosinophils/100 WBC (Bld) 6.6 % Normal 0.9-7.0 [facility] Comment on above: Performed By: #### C BC ####[facility] [address] [place], [place] [address]Dr. Mary Ellen Rolon Erythrocyte distribution width (RBC) [Ratio] 13.9 % Normal 11.0-15.0 [facility] Comment on above: Performed By: #### C BC ####[facility] [address] [place], [place] [address]Dr. Mary Ellen Rolon Hematocrit (Bld) [Volume fraction] 42.6 % Normal 36.0-48.0 [facility] Comment on above: Performed By: #### C BC ####[facility] [address] [place], [place] [address]Dr. Mary Ellen Rolon Hemoglobin (Bld) [Mass/Vol] 13.5 g/dL Normal 12.0-16.0 [facility] Comment on above: Performed By: #### C BC ####[facility] [address] [place] [id number]. Mary Ellen Rolon IG # 0.04 10e3/ul Critically high 0.00-0.03 [facility] Comment on above: Performed By: #### C BC ####[facility] [address] [place] [address]Dr. Ginasreekanth Rolon IG % 0.5 % Normal 0.0-0.5 [facility] Comment on above: Performed By: #### C BC ####[facility] [address] [place] [address]Dr. Mary Ellen Rolon LYMPH # 2.2 103/ul Normal 1.2-3.8 [facility] Comment on above: Performed By: #### C BC ####[facility] [address]wgc[address] [place] [address]Dr. Mary Ellen Rolon Lymphocytes/100 WBC (Bld) 26.9 % Normal 20.5-60.0 [facility] Comment on above: Performed By: #### C BC ####[facility] [address]rg[address] [place] [id number]. Ginasreekanth Rolon MANUAL DIFF REQ NO Normal [facility] Comment on above: Performed By: #### C BC ####[facility] [address]oe[address]xwzedt[address] [place] [id number]. Ginasreekanth Rolon MCH (RBC) [Entitic mass] 29.2 pg Normal 26.7-34.0 [facility] Comment on above: Performed By: #### C BC ####[facility] [address]tfurlv[address] [place] [id number]. Mary Ellen Gonzales MCHC (RBC) [Mass/Vol] 31.7 g/dL Normal 29.9-35.2 [facility] Comment on above: Performed By: #### C BC ####[facility] [address]ty[address]bbw[address] [place] [id number]. Mary Ellen Gonzales MCV (RBC) [Entitic vol] 92.0 fL Normal 81.0-99.0 [facility] Comment on above: Performed By: #### C BC ####[facility] [address]ax[address] [place] [id number]. Mary Ellen Rolon MONO # 0.7 103/ul Normal 0.3-0.8 [facility] Comment on above: Performed By: #### C BC ####[facility] [address] [place] [address]Dr. Mary Ellen Rolon Monocytes/100 WBC (Bld) 8.1 % Normal 1.7-12.0 [facility] Comment on above: Performed By: #### C BC ####[facility] [address]ss[address] [place] [id number]. Mary Ellen Rolon NEUT # 4.7 103/ul Normal 1.4-6.5 [facility] Comment on above: Performed By: #### C BC ####[facility] [address]cp[address]ter[address] [place] [address]Dr. Mary Ellen Rolon Neutrophils/100 WBC (Bld) 57.5 % Normal 43.0-75.0 [facility] Comment on above: Performed By: #### C BC ####[facility] [address]fuht[address]oyu[address] [place] [id number]. Mary Ellen Rolon Platelet mean volume (Bld) [Entitic vol] 9.1 fL Critically low 9.5-13.5 [facility] Comment on above: Performed By: #### C BC ####[facility] [address]fe[address]arz[address] [place] [id number]. Mary Ellen Rolon PLT 306 103/ul Normal 150-450 [facility] Comment on above: Performed By: #### C BC ####[facility] [address]nbfc[address] [place] [address]Dr. Mary Ellen Rolon RBC 4.63 106/ul Normal 4.20-5.40 [facility] Comment on above: Performed By: #### C BC ####[facility] [address]jmvnsjt[address] [place] [id number]. Mary Ellen Rolon WBC 8.2 103/ul Normal 4.0-11.0 [facility] Comment on above: Performed By: #### C BC ####[facility] [id number] [address]Dr. Mary Ellen Rolon FREE T3on 08-09-2021 FREE T3 3.32 pg/mlL Normal 2.77-5.27 [facility] Comment on above: Performed By: #### T SH, FT3, CMP, LIPID #### [facility] [address] [address] [address] Mary Ellen Rolon FREE T4on 08-09-2021 Free T4 [Mass/Vol] 1.12 ng/dL Normal 0.78-2.[address] [facility] Comment on above: Performed By: #### F T4, VITAD #### [facility] [address] [address] [address] Mary Ellen Rolon GLYCOHEMOGLOBIN A1Con 2021 ADA RECOMMENDATION ADA THERAPEUTIC TARG ET 6.0 - 7.0 ACTION SUGGESTED > 7.0 Normal [facility] Comment on above: Performed By: #### A 1C ####[facility] [id number] [address]Dr. Mary Ellen Rolon Glucose [Mass/Vol] 137 mg/dL Normal [facility] Comment on above: Performed By: #### A 1C ####[facility] [id number] [address]Dr. Mary Ellen Rolon HbA1c (Bld) [Mass fraction] 6.4 % Critically high <=6.0 [facility] Comment on above: Performed By: #### A 1C ####[facility] [id number] [address]Dr. Mary Ellen Rolon LIPID PROFILEon 08-09-2021 CHOL-HDL RATIO NORM SEE BELOW Normal [facility] Comment on above: Result Comment: 3.3 - 4.4 LOW RISK 4.4 - 7.1 AVERAGE RISK 7.1 - 11.0 MODERATE RISK >11.0 HIGH RISK Performed By: #### T SH, FT3, CMP, LIPID #### [facility] [address] [address] [address] Mary Ellen Rolon Cholesterol [Mass/Vol] 142 mg/dL Normal <=200 [facility] Comment on above: Performed By: #### T SH, FT3, CMP, LIPID #### [facility] [address] [address] [address] Mary Ellen Rolon Cholesterol in HDL [Mass/Vol] 49 mg/dL Normal [facility] Comment on above: Performed By: #### T SH, FT3, CMP, LIPID #### [facility] [address] [address] [address] Mary Ellen Rloon Cholesterol in LDL [Mass/Vol] 65.6 mg/dL Normal [facility] Comment on above: Performed By: #### T SH, FT3, CMP, LIPID #### [facility] [address] [address] [address] Mary Ellen Rolon Cholesterol.total/Ch olesterol in HDL [Mass ratio] 2.9 {ratio} Normal [facility] Comment on above: Performed By: #### T SH, FT3, CMP, LIPID #### [facility] [address] [address] [address] Mary Ellen Rolon HDL NORMAL > or = 60 mg/dl - LO W CARDIOVASCULAR RISK <40 mg/dl - HIGH CARDIOVASCULAR RISK Normal [facility] Comment on above: Performed By: #### T SH, FT3, CMP, LIPID #### [facility] [address] [address] [address] Mary Ellen Rolon LDL CALC NORMAL SEE BELOW Normal [facility] Comment on above: Result Comment: <100 mg/dl OPTIMAL 100 - 129 mg/dl NEAR OR ABOVE OPTIMAL 130 - 159 mg/dl BORDERLINE HIGH 160 - 189 mg/dl HIGH >190 mg/dl VERY HIGH Performed By: #### T SH, FT3, CMP, LIPID #### [facility] [address] [place] [address] Dr. Mary Ellen Rolon Triglyceride [Mass/Vol] 137 mg/dL Normal <=150 [facility] Comment on above: Performed By: #### T SH, FT3, CMP, LIPID #### [facility] [address] [address] [address] Mary Ellen Rolon VLDL CALC 27.4 mg/dL Normal [facility] Comment on above: Performed By: #### T SH, FT3, CMP, LIPID #### [facility] [address] [address] [address] Mary Ellen Rolon MICROALB CREAT RATIO RANDOMo n 08-09-2021 mALB 1.7 mg/L Normal <=30.0 [facility] Comment on above: Performed By: #### F T4, VITAD #### [facility] [address] [address] [address] Mary Ellen Rolon MALB CR RATIO 13.1 mg/g Normal 0.0-29.9 [facility] Comment on above: Performed By: #### F T4, VITAD #### [facility] [address] [address] [address] Mary Ellen Rolon MALB CR RATIO RANGE SEE BELOW Normal [facility] Comment on above: Result Comment: NO M ICROALBUMINURIA 0-29 MG/G CLINICAL MICROALBUMINURIA 30-300 MG/G MACROALBUMINURIA >300 MG/G Performed By: #### F T4, VITAD #### [facility] [address] [place] [address] Dr. Mary Ellen Rolon URINE CREAT 129.89 mg/dL Normal 20.00-300.00 [facility] Comment on above: Performed By: #### F T4, VITAD #### [facility] [address] [place] [address] Dr. Mary Ellen Rolon PROF 14(COMP METB)on 022 Albumin [Mass/Vol] 3.5 g/dL Normal 3.5-5.0 [facility] Comment on above: Performed By: #### T SH, FT3, CMP, LIPID #### [facility] [address] [address] [address] Mary Ellen Rolon Albumin/Globulin [Mass ratio] 1.1 {ratio} Normal [facility] Comment on above: Performed By: #### T SH, FT3, CMP, LIPID #### [facility] [address] [address] [address] Mary Ellen Rolon ALP [Catalytic activity/Vol] 79 U/L Normal 38-126 [facility] Comment on above: Performed By: #### T SH, FT3, CMP, LIPID #### [facility] [address] [address] [address] Mary Ellen Rolon ALT [Catalytic activity/Vol] 23 U/L Normal 9-52 [facility] Comment on above: Performed By: #### T SH, FT3, CMP, LIPID #### [facility] [address] [place] [address] Dr. Mary Ellen Rolon Anion gap [Moles/Vol] 11.7 mmol/L Normal [facility] Comment on above: Performed By: #### T SH, FT3, CMP, LIPID #### [facility] [address] [address] [address] Mary Ellen Rolon AST [Catalytic activity/Vol] 11 U/L Critically low 14-36 [facility] Comment on above: Performed By: #### T SH, FT3, CMP, LIPID #### [facility] [address] [place] [address] Dr. Mary Ellen Rolon Bilirubin [Mass/Vol] 0.4 mg/dL Normal 0.2-1.3 [facility] Comment on above: Performed By: #### T SH, FT3, CMP, LIPID #### [facility] [address] [place] [address] Dr. Mary Ellen Rolon Calcium [Mass/Vol] 8.6 mg/dL Normal 8.4-10.2 [facility] Comment on above: Performed By: #### T SH, FT3, CMP, LIPID #### [facility] [address] [address] [address] Mary Ellen Rolon Chloride [Moles/Vol] 104 mmol/L Normal 98-107 [facility] Comment on above: Performed By: #### T SH, FT3, CMP, LIPID #### [facility] [address] [place] [address] Dr. Mary Ellen Rolon CO2 [Moles/Vol] 28.3 mmol/L Normal 22.0-30.0 [facility] Comment on above: Performed By: #### T SH, FT3, CMP, LIPID #### [facility] [address] [place] [address] Dr. Mary Ellen Rolon Creatinine [Mass/Vol] 0.65 mg/dL Normal 0.52-1.04 [facility] Comment on above: Performed By: #### T SH, FT3, CMP, LIPID #### [facility] [address] [address] [address] Mary Ellen Rolon EGFR-AF VENEZUELAN >60 Normal >=60 [facility] Comment on above: Performed By: #### T SH, FT3, CMP, LIPID #### [facility] [address] [address] [address] Mary Ellen Rolon EGFR-NON AF VENEZUELAN >60 Normal >=60 [facility] Comment on above: Performed By: #### T SH, FT3, CMP, LIPID #### [facility] [address] [place] [address] Dr. Mary Ellen Rolon Globulin (S) [Mass/Vol] 3.3 g/dL Normal [facility] Comment on above: Performed By: #### T SH, FT3, CMP, LIPID #### [facility] [address] [place] [address] Dr. Mary Ellen Rolon Glucose [Mass/Vol] 138 mg/dL Critically high 74-106 [facility] Comment on above: Performed By: #### T SH, FT3, CMP, LIPID #### [facility] [address] [place] [address] Dr. Mary Ellen Rolon Potassium [Moles/Vol] 4.0 mmol/L Normal 3.4-5.0 [facility] Comment on above: Performed By: #### T SH, FT3, CMP, LIPID #### [facility] [address] [place] [address] Dr. Mary Ellen Rolon Protein [Mass/Vol] 6.8 g/dL Normal 6.1-8.[address] [facility] Comment on above: Performed By: #### T SH, FT3, CMP, LIPID #### [facility] [address] [place] [address] Dr. Mary Ellen Rolon Sodium [Moles/Vol] 140 mmol/L Normal 137-[address] [facility] Comment on above: Performed By: #### T SH, FT3, CMP, LIPID #### [facility] [address] [place] [address] Dr. Mary Ellen Rolon Urea nitrogen [Mass/Vol] 12.0 mg/dL Normal 7.0-17.0 [facility] Comment on above: Performed By: #### T SH, FT3, CMP, LIPID #### [facility] [address] [place] [address] Dr. Mary Ellen Rolon Urea nitrogen/Creatinine [Mass ratio] 18.5 mg/mg Normal [facility] Comment on above: Performed By: #### T SH, FT3, CMP, LIPID #### [facility] [address] [place] [address] Dr. Mary Ellen Rolon TSHon 08-09-2021 TSH 0.209 uIU/mL Critically low 0.470-4.680 [facility] Comment on above: Performed By: #### T SH, FT3, CMP, LIPID #### [facility] [address] [place] [address] Dr. Mary Ellen Rolon TSH RANGE SEE BELOW Normal [facility] Comment on above: Result Comment: <0.3 4 UIU/ml HYPERTHYROID 0.34-5.60 UIU/ml EUTHYROID >5.60 UIU/ml HYPOTHYROID Performed By: #### T SH, FT3, CMP, LIPID #### [facility] [address] [place] [address] Dr. Mary Ellen Rolon VITAMIN D 25 OHon 08-09-2021 VIT D 25-OH 61.5 ng/mL Normal [facility] Comment on above: Performed By: #### F T4, VITAD #### [facility] [address] [place] [address] Dr. Mary Ellen Rolon VIT D RANGES SEE BELOW Normal [facility] Comment on above: Result Comment: <20 ng/mL Vit D deficient 20 - <30 ng/mL Vit D insufficient 30 - 100 ng/mL Vit D sufficient >100 ng/mL Potential Toxicity Performed By: #### F T4, VITAD #### [facility] [address] [place] [address] Dr. Mary Ellen Rolon Vital Signs Date Time Vital Sign Value Performing Clinician Facility 08-22-2023 10:20-0500 Body height 167.6 cm Marquis Ang PA Work Phone: [facility] 08-22-2023 10:20-0500 Body mass index (BMI) [Ratio] 25.18 kg/m2 Marquis Ang PA Work Phone: [facility] 08-22-2023 10:20-0500 Body weight 70.76 kg Marquis Ang PA Work Phone: [facility] 07-02-2023 11:15-0500 Body height 167.64 cm Meme Gong Other [facility] Other 07-02-2023 11:15-0500 Body mass index (BMI) [Ratio] 26.14 kg/m2 Meme Gong Other [facility] Other 07-02-2023 11:15-0500 Body weight 73.48 kg Meme Gong Other [facility] Other 07-02-2023 11:15-0500 Diastolic blood pressure 71 mm[Hg] Meme Gong Other [facility] Other 07-02-2023 11:15-0500 SaO2% (BldA) [Mass fraction] 96 % Meme Gong Other [facility] Other 07-02-2023 11:15-0500 Systolic blood pressure 127 mm[Hg] Meme Gong Other [facility] Other 06-27-2022 10:00-0500 Body height 167.64 cm Velasquez Lam Other [facility] Other 06-27-2022 10:00-0500 Body mass index (BMI) [Ratio] 29.37 kg/m2 Velasquez Lam Other [facility] Other 06-27-2022 10:00-0500 Body weight 82.56 kg Velasquez Lam Other [facility] Other Encounters Encounter Date Encounter Type Care Provider Facility Start: 12-16-2023 End: 12-16-2023 ambulatory SAILAJA TURNERSintia Not Available Start: 11-05-2023 End: 11-05-2023 ambulatory LUISA Carlson JULIO Not Available Start: 10-30-2023 End: 10-30-2023 ambulatory MEME B NUHA Not Available Start: 10-16-2023 End: 10-16-2023 ambulatory MEME B NUHA Not Available Start: 10-08-2023 End: 10-08-2023 ambulatory MEME B NUHA Not Available Start: 09-26-2023 End: 09-26-2023 ambulatory MARQUIS Ben ANG Not Available Start: 09-24-2023 End: 09-24-2023 ambulatory MEME B NUHA Not Available Start: 09-22-2023 End: 09-22-2023 ambulatory MEME B NUHA Not Available Start: 09-15-2023 End: 09-15-2023 ambulatory MEME B NUHA Not Available Start: 09-12-2023 End: 09-12-2023 ambulatory MEME B NUHA Not Available Start: 09-10-2023 End: 09-10-2023 ambulatory MEME B NUHA Not Available Start: 09-04-2023 Bamboo flowsheet Meme B Nuha P T Work Phone: [facility] Start: 09-04-2023 Bamboo flowsheet Meme B Nuha P T Work Phone: [facility] Start: 09-04-2023 End: 09-04-2023 ambulatory MEME B NUHA Not Available Start: 09-04-2023 End: 09-04-2023 ambulatory Meme B Nuha PT Work Phone: [facility] Comment on above: Sacroiliac joint scooter n (Primary Dx); Lumbar paraspinal muscle spasm; Lumbar radiculopathy, chronic; Idiopathic scoliosis of thoracolumbar region Start: 09-01-2023 End: 09-01-2023 ambulatory Meme Breen PT Work Phone: [facility] Comment on above: Lumbar paraspinal mu scle spasm (Primary Dx); Sacroiliac joint pain; Lumbar radiculopathy, chronic; Idiopathic scoliosis of thoracolumbar region Start: 09-01-2023 Bamboo flowsheet Meme Gunderson Nuha P T Work Phone: [facility] Start: 09-01-2023 Bamboo flowsheet Mmee Breen P T Work Phone: [facility] Start: 08-22-2023 End: 08-23-2023 ambulatory MARQUIS ANG Not Available Start: 08-22-2023 End: 08-22-2023 Office outpatient visit 25 minutes Marquis Ang PA Work Phone: [facility] Comment on above: Acute left-sided low back pain without sciatica (Primary Dx); Sacroiliac joint pain; Other idiopathic scoliosis, thoracolumbar region Start: 08-21-2023 End: 08-21-2023 ambulatory AUGUSTA SURESH Not Available Start: 07-17-2023 End: 07-18-2023 ambulatory CRISTOFER OLIVA Not Available Start: 07-02-2023 Office outpatient vi sit 25 minutes Meme Gong [facility] Start: 07-02-2023 Patient encounter procedure Marquis Ang PA Work Phone: [facility] Start: 07-02-2023 End: 07-02-2023 ambulatory Meme Gong [employer] Other Start: 06-24-2023 End: 06-24-2023 ambulatory SAILAJA VILLA Not Available Start: 02-24-2023 End: 02-24-2023 ambulatory Luisa Kim Facility:[facility] Start: 02-24-2023 End: 02-24-2023 ambulatory DO Luisa Kim Work Phone: [facility] Work Phone: Start: 02-24-2023 End: 02-24-2023 Discharged Recurring DO Luisa Kim Work Phone: [facility] [place] Work Phone: Start: 01-03-2023 End: 01-03-2023 ambulatory Luisa Kim Facility:[facility] Start: 01-03-2023 End: 01-03-2023 ambulatory DO Luisa Kim Work Phone: [facility] Work Phone: Start: 01-03-2023 End: 01-03-2023 Patient encounter procedure DO Luisa Kim Work Phone: [facility]-Electrodiagnostics Work Phone: Start: 01-03-[address] Jairo Downs [facility] ity:[id number] Start: 06-27-2022 Office outpatient vi sit 15 minutes Velasquez Lam [facility] Start: 06-27-2022 End: 06-27-2022 ambulatory DO Luisa Kim Work Phone: [facility] Other Start: 06-27-2022 End: 06-27-2022 Patient encounter procedure DO Luisa Kim Work Phone: [facility] Start: 06-18-2022 End: 06-19-[address] LUISA KIM Facility: Start: 05-09-2022 End: 05-09-2022 ambulatory DO Luisa Kim Work Phone: [facility] Work Phone: Start: 05-09-2022 End: 05-09-2022 Discharged Recurring DO Luisa Kim Work Phone: [facility] [place] Start: 03-11-2022 End: 03-11-2022 ambulatory Velasquez Lam Other [facility] Other Start: 03-11-2022 Encounter for other preprocedural examination Velasquez Olexa [facility] Start: 03-11-2022 Office outpatient vi sit 25 minutes Velasquez Olexa [facility] Start: 02-23-2022 End: 02-23-2022 Patient encounter procedure DO Luisa Kim Work Phone: [facility] [place] Start: 02-19-2022 End: 02-19-2022 ambulatory Velasquez Olexa Other [facility] Other Start: 02-19-2022 Office outpatient vi sit 25 minutes Velasquez Olexa [facility] Start: 02-19-2022 End: 02-19-2022 Patient encounter procedure DO Luisa Kim Work Phone: [facility] Start: 02-08-2022 End: 02-09-[address] [...] Screening for malign ant neoplasm of colon [facility] Start: 07-17-2024 Screening for malign ant neoplasm of breast Mammogram [facility] Start: 07-02-2024 Medicare Annual Wellness (AWV) Medicare Annual Wellness (AWV) [facility] Start: 12-16-2023 End: 12-16-2023 Patient encounter procedure 12/16/2023 10:20 AM EDT Office Visit [facility] [address] [place] [id number] Sailaja Villa MD [address] [place] [address] [facility] Start: 11-05-2023 End: 11-05-2023 Patient encounter procedure 11/05/2023 9:45 AM EDT Office Visit [facility] [address] [place] [address] Luisa Kim DO [address] [place] [address] [facility] Start: 09-26-2023 End: 09-26-2023 Patient encounter procedure 09/26/2023 10:30 AM EST Office Visit [facility] [address] [facility] [address] [place] [address] Marquis Ang PA [address] [facility] [address] [place] [address] [facility] Start: 09-24-2023 End: 09-24-2023 ambulatory 09/24/2023 11:30 AM EST Treatment [facility] [address] [place] [phone] Meme Breen, PT [address] [place] [address] [facility] Start: 09-22-2023 End: 09-22-2023 ambulatory 09/22/2023 11:15 AM EST Treatment [facility] [address] [place] [phone] Meme Breen, PT [address] [place] [address] [facility] Start: 09-19-2023 End: 09-19-2023 ambulatory 09/19/2023 11:15 AM EST Treatment [facility] [address] [place] [address] Meme Breen, PT [address] [place] [address] [facility] Start: 09-15-2023 End: 09-15-2023 ambulatory 09/15/2023 11:45 AM EST Treatment [facility] [address] [place] [address] Meme Breen, PT [address] [place] [address] [facility] Start: 09-12-2023 End: 09-12-2023 ambulatory 09/12/2023 11:15 AM EST Treatment [facility] [address] [place] [address] Meme Breen, PT [address] [place] [address] [facility] Start: 09-10-2023 End: 09-10-2023 ambulatory 09/10/2023 10:00 AM EST Treatment [facility] [address] [place] [address] Meme Breen, PT [address] [place] [address] [facility] Start: 09-04-2023 End: 09-04-2023 ambulatory [facility] Comment on above: Sacroiliac joint scooter n (Primary Dx); Lumbar paraspinal muscle spasm; Lumbar radiculopathy, chronic; Idiopathic scoliosis of thoracolumbar region Start: 09-01-2023 End: 09-01-2023 ambulatory 09/01/2023 2:00 PM EST Evaluation [facility] PT [address] [place] [address] Meme Breen, PT [address] [place] [phone] Lumbar paraspinal muscle spasm (Primary Dx); Lumbar radiculopathy, chronic; Idiopathic scoliosis of thoracolumbar region; Acute left-sided low back pain without sciatica; Sacroiliac joint pain [facility] PT Comment on above: Lumbar paraspinal mu scle spasm (Primary Dx); Lumbar radiculopathy, chronic; Idiopathic scoliosis of thoracolumbar region; Acute left-sided low back pain without sciatica; Sacroiliac joint pain Start: 11-28-2022 Glaucoma screening Diabetes: R etinopathy Screening [facility] Start: 09-17-2022 Hemoglobin A1c measurement Diabetes: Hemoglobin A1C [facility] Start: 08-09-2022 Urine screening for protein Diabetes: Urine Protein Screening [facility] Start: 03-21-2022 Registered Recurring Registered Recu rring [facility] [place] Start: 02-23-2022 MRI of right shoulder MR shoulder RT wo con [facility] Start: 02-23-2022 End: 02-23-2022 Patient encounter procedure Departed Clinical [facility] [place] Start: 12-28-2019 Pneumococcal Vaccine : 65+ Years (3 - PPSV23 or PCV20) Pneumococcal Vaccine: 65+ Years (3 - PPSV23 or PCV20) [facility] Start: 12-28-2019 Pneumococcal Vaccine : 65+ Years (3 of 3 - PPSV23 or PCV20) Pneumococcal Vaccine: 65+ Years (3 of 3 - PPSV23 or PCV20) [facility] Start: 1950 Screening for malign ant neoplasm of colon [facility] XR Hip - left 3 Views XR hip lef t 2 or 3 views Imaging Routine Sacroiliac joint pain 08/22/2023 11:02 AM EST [facility] Work Phone: XR Lumbar spine View s W flexion and W extension XR lumbar spine 4+ views w flexion extension Imaging Routine Acute left-sided low back pain without sciatica 08/22/2023 11:02 AM EST [facility] Immunizations Immunization Date Immunization Notes Care Provider Melisa smith 05-16-2023 zoster vaccine recombinant Marquis WALTON Work Phone: [facility] 04-11-2023 Influenza, Seasonal, Quadrivalent, Adjuvanted Marquis WALTON Work Phone: [facility] 03-12-2023 zoster vaccine recombinant Marquis WALTON Work Phone: [facility] 06-13-2021 COVID-19 mRNA, Comir sam (Pfizer) DO Luisa Kim Work Phone: [facility] 10-19-2020 Do not use COVID-19 Pfizer 2 dose Velasquez Olexa Other [facility] 09-29-2020 Do not use COVID-19 Pfizer 2 dose Velasquez Olexa Other [facility] 01-19-2018 pneumococcal conjuga te vaccine, 13 valent Marquis WALTON Work Phone: [facility] 11-07-2016 tetanus toxoid, redu murray diphtheria toxoid, and acellular pertussis vaccine, adsorbed Marquis WALTON Work Phone: [facility] Work Phone: 12-27-2014 pneumococcal polysaccharide vaccine, 23 valent Marquis WALTON Work Phone: [facility] Payers Date Payer Category Payer Self-pay [id number] 2022 Private Health Insurance [employer] [id number] 2022-Present [address] [address] [place] [address] Supplement [id number] 2017 Medicare MEDICARE MEDICAR E PART B [id number] 2017-[place] [address] [place] [address] Medicare [id number] 1959 Medicare [id number] 1959 Private Health Insurance [id number] 1959 Private Health Insurance [id number] 1959 Unknown 1952 Unknown [id number] 2.16.840.1.543913.3.579.2. 593 1952 Unknown [id number] 2.16.840.1.459184.3.579.2. 593 1952 Unknown [id number] 2.16.840.1.466645.3.579.2. 593 1952 Unknown [id number] 2.16.840.1.556173.3.579.2. 593 1952 Unknown [id number] 2.16.840.1.862246.3.579.2. 593 1952 Unknown [id number] 2.16.840.1.879783.3.579.2. 356 1952 Unknown [id number] 2.16.840.1.209755.3.579.2. 1259 1952 Unknown [id number] 2.16.840.1.685316.3.579.2. 1259 1952 Unknown [id number] 2.16.840.1.721883.3.579.2. 1259 1952 Unknown [id number] 2.16.840.1.151845.3.579.2. 1259 1952 Unknown [id number] 2.16.840.1.836349.3.579.2. 1259 1952 Unknown [id number] 2.16.840.1.705833.3.579.2. 1258 1950 Unknown [id number] 2.16.840.1.154724.3.579.2. 1258 1950 Unknown [id number] 2.16.840.1.588814.3.579.2. 1258 1950 Unknown [id number] 2.16.840.1.824124.3.579.2. 1258 1950 Unknown [id number] 2.16.840.1.469456.3.579.2. 1258 1950 Unknown [id number] 2.16.840.1.500385.3.579.2. 1258 1950 Unknown [id number] 2.16.840.1.757123.3.579.2. 1258 1950 Unknown [id number] 2.16.840.1.782566.3.579.2. 1258 1950 Unknown [id number] 2.16.840.1.908180.3.579.2. 1258 1950 Unknown [id number] 2.16.840.1.422673.3.579.2. 1258 1950 Unknown [id number] 2.16.840.1.927647.3.579.2. 1258 1950 Unknown [id number] 2.16.840.1.746064.3.579.2. 1258 1950 Unknown [id number] 2.16.840.1.541975.3.579.2. 1258 1950 Unknown [id number] 2.16.840.1.763620.3.579.2. 1258 1950 Unknown [id number] 2.16.840.1.836440.3.579.2. 1258 1950 Unknown [id number] 2.16.840.1.359449.3.579.2. 1258 Unknown [facility] [id number] Unknown [id number] 2.16.840.1.095554.3.579.2. 531 Unknown [id number] 2.16.840.1.794667.3.579.2. 531 Unknown [id number] 2.16.840.1.238804.3.579.2. 531 Social History Date Type Detail Facility Unknown if ever smoked [facility] Start: 07-02-2023 End: 08-22-2023 Sex Assigned At [facility] Start: 12-10-2021 End: 02-26-2023 Tobacco smoking status CTIS Ex-smoker (finding) [facility] Start: 1950 Sex Assigned At Female [facility] Start: 07-21-1969 End: 07-21-1995 History of tobacco use Current smoker [facility] Start: 07-21-1969 End: 07-21-1995 History of tobacco use Cigarette Smoker [facility] Start: 02-26-2023 End: 07-02-2023 Cigarettes smoked current (pack per day) - Reported 1 [facility] History of tobacco use Passive smoker [facility] Start: 02-26-2023 Tobacco use and exposure Smokeless tobacco non-user [facility] Start: 08-22-2023 Alcohol intake Ex-drinker (finding) [facility] How often to you hav e a drink containing alcohol? Monthly or less [facility] How many standard drinks containing alcohol do you have on a typical day? 1 or 2 [facility] How often do you hav e 6 or more drinks on 1 occasion? Never [facility] Start: 12-08-2022 Tobacco Comment Past smoking h x unknown [facility] Start: 12-08-2022 Alcohol Comment caffeine: 2-3 cups per day coffee, tea [facility] Start: 12-04-2022 Gender identity Identifies as female gender (finding) [facility] Medical Equipment Procedure Code Equipment Code Equipment Origin al Text Equipment Identifier Dates One test strip b y finger stick once daily [id number] Start: 12-19-2022 Clinical Notes 11-18-2009 to 09-04-2023 Meme Breen, PT - 09/04/2023 11:15 AM ISABELLE Lozano - 08/22/2023 10:30 AM EST Note Date & Type Note Facility 09-04-2023 History of Presen t illness Narrative Physical Therapy Physical Therapy Evaluation Visit Patient Name: Mirta Welsh Today's Date: 09/04/2023 Encounter Diagnoses Name [...] strength, ergonomic, and postural program 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 HISTORY OF PRESENT ILLNESS: EST PT Mirta Welsh is an 72 y.o. @ female. EST PT WITH NEW C/O LBP/UPPER BACK FOR YRS- PT STATES SHE HAS SCOLIOSIS AND FLAT FEET THAT SHE HAS BEEN DEALING WITH HER ENTIRE LIFE- DR KIM/JOSÉ ALONZO TX; XRAY LUMBAR SPINE/MUSCLE RELAXERS XRAY LUMBAR SPINE WITH FLEX/EXT/LT HIP 08/22/23/CHANGE XRAY LUMBAR SPINE 02/07/23 CHANGE NO MRI [employer] FOR YRS NO CORTISONE INJ NO MDP/PREDNISONE [...] Consult and Treat Referred to Provider: Meme B Nuha, PT Requested Specialty: Physical Therapy Number of [...] evaluation. ISABELLE Phelps documented in this encounter [facility] 07-02-2023 Evaluation note Encounter Date Diagnosis Assessment [...] sleepiness, or poor response to treatment. . [facility] 12-08-2022 Evaluation note* Encounter Date Diagnosis [...] pain of right shoulder (ICD-10 - M25.511) [facility] 09-13-2022 NoteHISTORY: Bone density screening. COMPARISON: [...] and signed by Abhi Jefferson on 04/02/2022 [facility] Encounter Date Diagnosis Assessment Notes [...] S43.003A) Feb, Pre-op exam (ICD-10 - Z01.818) [facility] 08-02-2022 Evaluation note* Encounter Date Diagnosis [...] plan further treatment options and potential surgey. [facility] 05-06-2022 NoteHISTORY: Dizziness, headaches PROCEDURE: blogfoster VCT 64. Without IV contrast, images of [...] and signed by Donald Jeter on 11/23/2021 1544[facility] [id number] History general Narrative - Reported* Type Description Date Medical History type II diabetes Medical History no thyroid Surgical History left wrist 11/2009 Surgical History knee arthroscopy 2005 Surgical History hysterectomy 07/2012 Surgical History thyroidectomy, complete Hospitalization History see above [facility] 05-01-2010 History general Narrative - Reported* Type Description Date Medical History type II diabetes Medical History no thyroid Medical History Obstructive sleep apnea Medical History GERD Surgical History left wrist 11/2009 Surgical History knee arthroscopy 2005 Surgical History hysterectomy 07/2012 Surgical History thyroidectomy, complete Hospitalization History see above [facility] Evaluation noteNo assessment information available [facility] Work Phone: Evaluation note* Diagnosis Acute left-sided low back pain without sciatica- Primary Sacroiliac joint pain Disorders of sacrum Other idiopathic scoliosis, thoracolumbar region documented in this encounter [facility]* Diagnosis Lumbar paraspinal muscle spasm- Primary Other symptoms referable to back Sacroiliac joint pain Disorders of sacrum Lumbar radiculopathy, chronic Idiopathic scoliosis of thoracolumbar region documented in this encounter [facility]* Diagnosis Sacroiliac joint pain- Primary Disorders of sacrum Lumbar paraspinal muscle spasm Other symptoms referable to back Lumbar radiculopathy, chronic Idiopathic scoliosis of thoracolumbar region [facility] Consultation (Routine) - Authorized Specialty Diagnoses / Procedures Referred By Agustin colón Referred To Contact Physical Therapy Diagnoses Acute left-sided low back pain without sciatica Sacroiliac joint pain Procedures [facility]PATIENT [facility] 60 MINUTES Marquis Ang PA [address] [address] Meme Breen, PT [address] [place] [address] Referral ID Status Reason Start Date Expiration Date Visits Requested Visits Authorized [id number] Authorized Consult and Treat 08/22/2023 02/18/2024 10 10 * Consultation (Routine) - Pending Review Specialty Diagnoses / Procedures Referred By Agustin colón Referred To Contact Pain Medicine Diagnoses Acute left-sided low back pain without sciatica Procedures [facility] OFF[facility]OUTPATIENT [facility] 60 MINUTES Marquis Ang PA [address] [facility] [address] [place] [address] Roxane Rockwell MD [address] [facility], [address], [place] [address] Referral ID Status Reason Start Date Expiration Date Visits Requested Visits Authorized [id number] Pending Review Specialty Services Required 08/22/2023 02/18/2024 1 1 Scheduling Instructions Referral to Dr. Coburn @ [facility]- Possible Lt SI inj; please call pt to schedule [facility] Chief Complaint and Reason for Visit [...] pain without sciatica Sacroiliac joint pain Procedures [facility] 60 MINUTES Marquis Ang PA [address] [facility] [address] [place] [address] Meme Breen, PT [address] [place] [address] Referral ID Status Reason Start Date Expiration Date Visits Requested Visits Authorized [id number] Authorized Consult and Treat 08/22/2023 02/18/2024 30 [...] Luisa Kim DO Primary Care Provider Active MATT TejedaC Attending Provider Acti ve Team Status: Inactive Member Role Status Dates Luisa Kim DO Primary Care Provider Active MARILYN WheelerC Attending Provider Active Product Representative Relationship Specialty Start Date End Date Luisa Kim DO [address] [place] [address] PCP - ACO Reach 12/12/22 Luisa Kim DO [address] [place] [address] PCP - General Internal Medicine 08/21/23 Meme Gong MD [address] [place] [address] Referring Physician Sleep Medicine 07/02/23 Product Representative Relationship Specialty Start Date End Date Luisa Kim DO [address] [place] [address] PCP - ACO Reach 12/12/22 Luisa Kim DO [address] [place] [address] PCP - General Internal Medicine 08/21/23 Meme Gong MD [address] [place] [address] Referring Physician Sleep Medicine 07/02/23 Product Representative Relationship Specialty Start Date End Date Luisa Kim DO [address] [place] [address] PCP - ACO Reach 12/12/22 Luisa Kim DO [address] [place] [address] PCP - General Internal Medicine 08/21/23 Meme Gong MD [address] [place] [address] Referring Physician Sleep Medicine 07/02/23 Product Representative Relationship Specialty Start Date End Date Luisa Kim DO [address] [place] [address] PCP - ACO Reach 12/12/22 Luisa Kim DO [address] [place] [address] PCP - General Internal Medicine 08/21/23 Meme Gong MD [address] [place] [address] Referring Physician Sleep Medicine 07/02/23 Goals (unrecognized section and content) Goals may be documented in a n alternate section INFORMATION SOURCE (unrecogn ized section and content) DATE CREATED AUTHOR 04/03/2022 [facility] dical Specialist DATE CREATED AUTHOR AUTHOR'S ORGANIZ ATION 06/22/2022 [facility] DATE CREATED AUTHOR AUTHOR'S ORGANIZ ATION 03/26/2023 [facility] DATE CREATED AUTHOR AUTHOR'S ORGANIZ ATION 07/26/2023 [facility] DATE CREATED AUTHOR AUTHOR'S ORGANIZ ATION 12/16/2023 [facility] dical Specialists EPIC FOR RECORDS PERTAINING TO PATIENTS WHO ARE [...] BE BASED ON THE PRIMARY CLINICAL RECORDS. [facility] [facility]. provides no warranty or guarantee of the accuracy or completeness of information in this document.
[2024-02-08 14:18] VITALS: PULSE 66
--- NOTE | 2024-02-08 14:19 | XR_ITS ---
The [address] [address] Patient Name: CHRISTINA WOODWARD MRN: [id number] date: 1950 Sex: F Assigned Patient Location: ER Current Patient Location: ER Accession/Order Number: [id number] Exam Date: 02/08/2024 14:50 Report Date: 02/08/2024 15:54 At the request of: PRISCILLA BOYD Procedure: XR hand RT 2V EXAM: XR hand RT 2V HISTORY: right middle finger trauma COMPARISON: 02/08/2024 TECHNIQUE: 3 views of the right hand. FINDINGS: Bones: No definite fracture. No aggressive appearing bony lesion. Joints: There is anterior dislocation of third digit at the PIP joint. Soft tissues: Unremarkable. XR/XR hand RT 2V IMPRESSION: No definite fracture. anterior dislocation of third digit at the PIP joint. Electronically authenticated by: BRIAN MCKEON Date: 02/08/2024 15:54
[2024-02-08] MEDS: LIDOCAINE HCL 1% 100 MG/10 ML MDV INJ (14:24)
[2024-02-08] MEDS: KETOROLAC TROMETHAMINE 30 MG/ML VIAL 15 MG IVP (14:24)
--- NOTE | 2024-02-08 14:58 | XR_ITS ---
The [address] [address] Patient Name: CHRISTINA WOODWARD MRN: [id number] date: 1950 Sex: F Assigned Patient Location: ER Current Patient Location: Accession/Order Number: [id number] Exam Date: 02/08/2024 15:10 Report Date: 02/08/2024 15:56 At the request of: PRISCILLA BOYD Procedure: XR hand RT 2V EXAM: XR hand RT 2V HISTORY: post middle finger reduction COMPARISON: Right hand 02/08/2024 2:45 PM series 1. Right hand 11/03/2023. TECHNIQUE: PA, oblique, lateral x-ray right hand 02/08/2024 2:56 PM. Series 2. FINDINGS: Previous PIP joint dislocation or fracture has been reduced. Faint calcific density along the dorsal aspect of the joint is of uncertain significance, adjacent cortical margins are smooth and no obvious source for avulsion noted. Soft tissue prominence. Slight degenerative changes seen in the fingers most significant DIP joint index finger unchanged. No fracture in the other fingers. Carpal bones stable without fracture. Degenerative changes most prominent along the radial aspect of the wrist appear chronic. XR/XR hand RT 2V IMPRESSION: Successful reduction of previous PIP joint dislocation third finger. Faint calcific density along the dorsal joints on the lateral view not definitely seen on 11/03/2023. Could be small avulsion although no donor site identified. 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 Electronically authenticated by: HEIDE MILLER Date: 02/08/2024 15:56
--- NOTE | 2024-02-08 14:58 | ED_ITS ---
HPI HPI - Extremity Injury (Upper) General Chief Complaint: Extremity Injury, Upper Stated Complaint: BROKEN FINGER Time Seen by Provider: 02/08/24 14:18 Source: patient Mode of arrival: ambulance Limitations: no limitations History of Present Illness HPI narrative: The patient coming to the ER with a right middle finger injury that she sustained while she was walking her dog and his leash turned around her right finger and she fell down and that when she sustained this injury The patient coming right now with pain She had her last tetanus booster within the last year Related Data Home Medications ?Medication ?Instructions ?Recorded ?Confirmed atorvastatin 40 mg tablet mg 02/08/24 buspirone 5 mg tablet 5 mg PO DAILY 02/08/24 02/08/24 levothyroxine 100 mcg tablet 100 mcg PO DAILY 02/08/24 02/08/24 lisinopril 10 mg tablet mg 02/08/24 Allergies Allergy/AdvReac Type Severity Reaction Status Date / Time bupropion AdvReac Intermediate Unknown Verified 02/08/24 14:03 [From Wellbutrin SR] Opioid HPI Opioid Management Most Recent Pain and Opioid Data: Last Pain Scale 1 02/08/24 16:21 Last ED Pain Assessment 02/08/24 14:18 Last MAR Pain Assessment 02/08/24 16:21 Review of Systems ROS Status of ROS 10 or more systems reviewed and unremark able except as noted in history and below Exam Narrative Exam Narrative: Right hand examination showed that the patient have a obvious deformity of the right middle finger mostly the proximal interphalangeal joint that is totally exposed to the outside with the bone as well and the rest of the tissue that distal to the proximal interphalangeal joint including the distal phalanx and the middle phalanx are in flexion just approximately, the open dislocation of the right middle finger exposing the joint Nurses notes and vital signs reviewed and patient is not hypoxic. General: Well-appearing and in no apparent distress. Skin: Warm, dry, no pallor noted. No rash. Head: Normocephalic, atraumatic. Neck: Supple, non-tender. Eye: Pupils are equal, round and EOMI. No scleral icterus. Ears, Nose, Mouth, and Throat: TM are clear, no nasal mucosal hypertrophy. Oral mucosa is moist, no posterior oropharynx erythema, uvula is mid-line Cardiovascular: Regular Rate and Rhythm without murmur, gallop or rub. Respiratory: No accessory muscle use or respiratory distress. Lungs are clear to auscultation, no wheezing, rales or rhonchi Chest Wall: no tenderness Back: No midline thoracic or lumbar vertebral tenderness. No CVA tenderness GI: Abdomen is soft, non-distended. Normal bowel sounds. No masses appreciated. No tenderness to palpation. No rebound, guarding, or rigidity noted. Neurological: A&O x4. No cranial nerve dysfunction observed. No truncal ataxia. Moves all extremities. Sensation intact. Psychiatric: Cooperative and interactive. Normal mood and affect. Constitutional Vital Signs, click to edit/add: Last Vital Signs Temp 98.4 F 02/08/24 14:03 Pulse 66 02/08/24 14:18 Resp 18 02/08/24 14:03 BP 156/79 H 02/08/24 15:01 Pulse Ox 93 L 02/08/24 14:03 O2 Del Method Room Air 02/08/24 14:03 Course Vital Signs Vital signs: Vital Signs Temperature 98.4 F 02/08/24 14:03 Pulse Rate 98 H 02/08/24 14:03 Respiratory Rate 18 02/08/24 14:03 Blood Pressure 171/103 H 02/08/24 14:03 Pulse Oximetry 93 L 02/08/24 14:03 Oxygen Delivery Method Room Air 02/08/24 14:03 Temperature 98.4 F 02/08/24 14:03 Pulse Rate 66 02/08/24 14:18 Respiratory Rate 18 02/08/24 14:03 Blood Pressure 156/79 H 02/08/24 15:01 Pulse Oximetry 93 L 02/08/24 14:03 Oxygen Delivery Method Room Air 02/08/24 14:03 MDM - Extremity Injury (Upper) MDM Narrative Medical decision making narrative: After cleaning the area thoroughly with normal saline and Betadine and applying finger block using 1% lidocaine Almost 10 cc of 1% lidocaine used to obtain finger block at the right third metacarpophalangeal joint, and after that the patient had a alignment of the tissue of the joint with a finger splint The patient presented to us with a open fracture dislocation as well as possible rupture of the extensor muscles of the proximal interphalangeal joint. The patient tetanus status is up-to-date The patient started on Ancef as a prophylaxis for infection X-ray of the patient hand that confirmed the diagnosis of open dislocation The patient case was discussed with and orthopedic hand specialty service in [facility] and he accepted the patient the patient be transferred to Dr. Wilson in the [facility] ED Awaiting transfer Discharge Plan Discharge Chief Complaint: Extremity Injury, Upper Clinical Impression: Open dislocation, Rupture of tendon of finger Patient Disposition: [facility] Time of Disposition Decision: 16:25 Discharge location: [facility] Condition: Good
[2024-02-08 15:01] VITALS: BP 156/79
--- NOTE | 2024-02-08 15:02 | PC.NURSE ---
arae cleansed with sterile saline and Iodine, splint placed by ER DR Gonzalez after reduction and post reduction imaging complete
[2024-02-08] MEDS: CEFAZOLIN SODIUM/DEXTROSE,ISO 2 GM/50 ML PIGGYBACK IV (15:11)
--- NOTE | 2024-02-08 16:03 | PC.NURSE ---
New dressing and splint in place for transfer. Ice to site
[2024-02-08] MEDS: MORPHINE SULFATE 2 MG/ML SYRINGE IV (16:21)
[2024-02-08 16:49] VITALS: BP 139/79; PULSE 85; O2SAT 97
== END 2024-02-08 17:03 | disposition short-term general hospital (02) ==
PROVIDERS: Emergency Provider Emergency Medicine; PCP Internal Medicine
DX: S63.282A Dislocation of proximal interphalangeal joint of right middle finger, initial encounter (principal); S66.312A Strain of extensor muscle, fascia and tendon of right middle finger at wrist and hand level, initial encounter; W19.XXXA Unspecified fall, initial encounter
CPT/HCPCS: 26770; 73120; 96365; 96375; 99285; J0690; J1885; J2270

== ENCOUNTER 2024-03-11 18:59 | Emergency (ER) | payer MEDICARE, SELFPAY ==
[2024-03-11 19:06] VITALS: BP 139/80; PULSE 88; TEMP 36.8; O2SAT 97; BMI 25.8
--- NOTE | 2024-03-11 19:16 | XR_ITS ---
The [address] [address] Patient Name: CHRISTINA WOODWARD MRN: [id number] date: 1950 Sex: F Assigned Patient Location: ER Current Patient Location: ER Accession/Order Number: [id number] Exam Date: 03/11/2024 19:24 Report Date: 03/11/2024 20:03 At the request of: DEE MOON Procedure: XR finger RT min 2V Exam: Radiographs: XR finger RT min 2V Reason for exam: finger swelling Comparison: None XR/XR finger RT min 2V IMPRESSION: Ununited ossicle along the PIP joint and dorsal DIP joint. These could be fragmented degenerative osteophytes versus small acute avulsion fractures. Third digit soft tissue swelling. Degenerative changes throughout the right fingers. Remainder of the right finger radiographs is unremarkable. Electronically authenticated by: HYUN MICHELE Date: 03/11/2024 20:03
--- NOTE | 2024-03-11 19:17 | ED_ITS ---
HPI HPI - Extremity Injury (Upper) General Chief Complaint: Extremity Injury, Upper Stated Complaint: UE PAIN Time Seen by Provider: 03/11/24 19:00 Source: patient Mode of arrival: walk-in Limitations: no limitations History of Present Illness HPI narrative: Patient is a very pleasant 73-year-old female who presents to the emergency department for swelling and pain increased to the right middle finger. Patient was seen in this emergency department 1 month ago for an open dislocation with suspected rupture of tendons of the right middle finger after an injury involving a dog leash. She was transferred to [facility] to hand specialty where she underwent surgery and pin placement. She had the pins removed yesterday in the orthopedic office, her finger is fixed in flexion at the PIP joint, it has been like this since the pins were placed. She states today she has noticed an increase in pain and swelling over the proximal phalanx. She is not currently taking any pain medication or antibiotics. Related Data Home Medications ?Medication ?Instructions ?Recorded ?Confirmed atorvastatin 40 mg tablet mg 02/08/24 buspirone 5 mg tablet 5 mg PO DAILY 02/08/24 02/08/24 ibuprofen 800 mg tablet (IBU) 800 mg PO .Q6HRS PRN pain 02/08/24 02/08/24 levothyroxine 100 mcg tablet 100 mcg PO DAILY 02/08/24 02/08/24 liothyronine 5 mcg tablet 5 mcg PO QAM 02/08/24 02/08/24 lisinopril 10 mg tablet mg 02/08/24 metformin 500 mg tablet 500 mg PO QAM 02/08/24 02/08/24 pantoprazole 40 mg tablet,delayed 40 mg PO DAILY 02/08/24 02/08/24 release trazodone 50 mg tablet 50 mg PO QPM 02/08/24 02/08/24 venlafaxine 150 mg 150 mg PO DAILY 02/08/24 02/08/24 capsule,extended release 24 hr Previous Rx's ?Medication ?Instructions ?Recorded cephalexin 500 mg capsule 500 mg PO Q8H 7 days #21 caps 03/11/24 oxycodone-acetaminophen 5 mg-325 1 tab PO Q6H PRN pain 3 days #12 03/11/24 mg tablet (Percocet) tabs Allergies Allergy/AdvReac Type Severity Reaction Status Date / Time bupropion AdvReac Intermediate Unknown Verified 03/11/24 19:11 [From Wellbutrin SR] Opioid HPI Opioid Management Most Recent Pain and Opioid Data: Last Pain Scale 1 02/08/24 16:21 Review of Systems ROS Constitutional Denies: fever or chills Ears, nose, mouth, and throat Denies: throat pain or nasal congestion Respiratory Denies: shortness of breath Gastrointestinal Denies: nausea or vomiting Musculoskeletal Reports: extremity pain, extremity swelling, limited range of motion and joint swelling Integumentary/Breast Denies: rash Hematologic/Lymphatic Denies: easy bruising or easy bleeding [facility] Medical History (Updated 03/11/24 @ 20:18 by ISABELLE Guidry) Hypothyroid ?E03.9 - Hypothyroidism, unspecified (ICD-10) HTN (hypertension) ?I10 - Essential (primary) hypertension (ICD-10) Exam Narrative Exam Narrative: Gen.: Awake, alert, in no distress Head: Normocephalic, atraumatic ENT: Moist mucous membranes Respiratory: No respiratory distress Extremities: Right middle finger is diffusely swollen, flexed at the PIP joint with moderate edema noted over the dorsum of the proximal phalanx. No red streaking or circumferential redness of the hand. Psych: Normal mood and affect Neuro: No focal neuro deficit Skin: Warm, dry, intact Constitutional Vital Signs, click to edit/add: Last Vital Signs Temp 98.2 F 03/11/24 19:06 Pulse 88 03/11/24 19:06 Resp 16 03/11/24 19:06 BP 139/80 03/11/24 19:06 Pulse Ox 97 03/11/24 19:06 O2 Del Method Room Air 03/11/24 19:06 Course Vital Signs Vital signs: Vital Signs Temperature 98.2 F 03/11/24 19:06 Pulse Rate 88 03/11/24 19:06 Respiratory Rate 16 03/11/24 19:06 Blood Pressure 139/80 03/11/24 19:06 Pulse Oximetry 97 03/11/24 19:06 Oxygen Delivery Method Room Air 03/11/24 19:06 Temperature 98.2 F 03/11/24 19:06 Pulse Rate 88 03/11/24 19:06 Respiratory Rate 16 03/11/24 19:06 Blood Pressure 139/80 03/11/24 19:06 Pulse Oximetry 97 08/22/24 19:06 Oxygen Delivery Method Room Air 03/11/24 19:06 MDM - Extremity Injury (Upper) MDM Narrative Medical decision making narrative: X-rays with improved alignment from previous, no evidence of abscess and lab studies are unremarkable. At this time the patient's exam is consistent with soft tissue swelling, due to recent orthopedic hardware removal, she will be covered with antibiotics and a short course of analgesics. We did attempt to contact the hand surgeon on-call at [facility] but we did not receive a call back, patient with no evidence of significant wound infection at this time, she is placed on Keflex and a short course of analgesics for home to follow-up with orthopedic clinic as an outpatient. She was given a clinic number to call tomorrow if she is not able to get a hold of anyone, return to the ER if symptoms change or worsen. Neurovascularly intact at discharge. SUPERVISED APC VISIT, PHYSICIAN ATTESTATION: Based on the medical record the care appears appropriate. ? Medical Records Attestation: I reviewed the patient's medical records. Lab Data Attestation: I reviewed the patient's lab results. Labs: Lab Results 03/11/24 Range/Units 19:36 WBC 9.1 (4.0-11.0) 10^3/uL RBC 4.60 (4.20-5.40) 10^6/uL Hgb 14.4 (12.0-16.0) g/dL Hct 43.8 (36.0-48.0) % MCV 95.2 (81.0-99.0) fL MCH 31.3 (26.7-34.0) pg MCHC 32.9 (29.9-35.2) g/dL RDW 13.2 (11.0-15.0) % Plt Count 362 (150-450) 10^3/uL MPV 8.8 L (9.5-13.5) fL Neut % (Auto) 48.2 (43.0-75.0) % Lymph % (Auto) 37.6 (20.5-60.0) % [place] % (Auto) 7.7 (1.7-12.0) % Eos % (Auto) 5.8 (0.9-7.0) % Baso % (Auto) 0.4 (0.2-2.0) % Neut # (Auto) 4.4 (1.4-6.5) 10^3/uL Lymph # (Auto) 3.4 (1.2-3.8) 10^3/uL [place] # (Auto) 0.7 (0.3-0.8) 10^3/uL Eos # (Auto) 0.5 (0.0-0.7) 10^3/uL Baso # (Auto) 0.0 (0.0-0.1) 10^3/uL Abs Immat Gran (auto) 0.03 (0.00-0.03) 10^3/uL Imm/Tot Granulo (auto) 0.3 (0.0-0.5) % ESR 22 (<=30) mm/hr Sodium 138 (136-145) mmol/L Potassium 4.1 (3.5-5.1) mmol/L Chloride 100 (98-107) mmol/L Carbon Dioxide 27.4 (21.0-32.0) mmol/L Anion Gap 14.7 BUN 22.0 H (7.0-18.0) mg/dL Creatinine 1.11 H (0.55-1.02) mg/dL Est GFR ( Amer) 59 L (>=60) Est GFR (Non-Af Amer) 48 L (>=60) BUN/Creatinine Ratio 19.8 Glucose 109 H (74-106) mg/dL Calcium 9.2 (8.5-10.1) mg/dL C-Reactive Protein <0.50 (<=0.50) mg/dL Imaging Data XR finger: Attestation: I have reviewed the pertinent imaging results. Radiologist's impression: ITS Impressions Finger X-Ray 03/11/24 19:16 IMPRESSION: Ununited ossicle along the PIP joint and dorsal DIP joint. These could be fragmented degenerative osteophytes versus small acute avulsion fractures. Third digit soft tissue swelling. Degenerative changes throughout the right fingers. Remainder of the right finger radiographs is unremarkable. Electronically authenticated by: HYUN MICHELE Date: 03/11/2024 20:03 Discharge Plan Discharge Stand Alone Forms: Work/School Release, Portal Instructions Chief Complaint: Extremity Injury, Upper Clinical Impression: Finger pain, right Patient Disposition: Home, Self-Care Time of Disposition Decision: 20:18 Condition: Good Prescriptions / Home Meds: New oxycodone-acetaminophen [Percocet] 5-325 mg tablet 1 tab PO Q6H PRN (Reason: pain) 3 Days Qty: 12 0RF Rx Instructions: DX: M79.644 cephalexin 500 mg capsule 500 mg PO Q8H 7 Days Qty: 21 0RF No Action atorvastatin 40 mg tablet Hold Instructions: dc buspirone 5 mg tablet 5 mg PO DAILY levothyroxine 100 mcg tablet 100 mcg PO DAILY lisinopril 10 mg tablet Hold Instructions: dc venlafaxine 150 mg capsule,extended release 24hr 150 mg PO DAILY trazodone 50 mg tablet 50 mg PO QPM pantoprazole 40 mg tablet,delayed release (DR/EC) 40 mg PO DAILY metformin 500 mg tablet 500 mg PO QAM ibuprofen [IBU] 800 mg tablet 800 mg PO .Q6HRS PRN (Reason: pain) liothyronine 5 mcg tablet 5 mcg PO QAM Print Language: Lao Instructions: Arthralgia (ED) Additional Instructions: Please call the ortho clinic tomorrow for follow up Referrals: LUISA KIM [Primary Care Provider] - 1 week Discharge Date/Time: 03/11/24 20:43
--- OUTSIDE RECORDS SUMMARY | 2024-03-11 19:29 | XMS_ITS | CCD ---
Author Organization [facility] Care Team Providers Care Bar Host Name Role Phone Le Lam Unavailable DO Jean Pierre Kim Primary Care Provider MD Le Lam Attending Provider JULIO, DR MORAN Primary [...] Saunders Consulting Unavailable LENORA CABRERA Consulting Unavailable JULOI, DR MORAN Primary Care Unavailable JULIO, DR MORAN Admitting Unavailable JULIO, DR MORAN Attending Unavailable JULIO, DR MORAN Consulting Unavailable JULIO, DR MORAN Primary Care Unavailable JULIO, DR MORAN Admitting Unavailable JULIO, DR MORAN Attending Unavailable JULIO, DR MORAN Consulting Unavailable DO Jean Pierre Kim Primary Care Provider MD Le Lam Attending Provider DO Jean Pierre Kim Primary Care Provider [phone] ANGEL Valladares Attending Provider Dr. Jairo Downs Primary Care Unavailable DO Jean Pierre Kim Primary Care Provider RG Alonzo Attending Provider [phone] Meme Gong Unavailable Meme Gong Attending Unavailable Meme Gong Admitting Unavailable Jean Pierre Kim Primary Care Unavailable Jean Pierre Kim Primary Care Unavailable Ning Valladares Attending Unavail able Ning Valladares Admitting Unavail able Jean Pierre Kim Primary Care Unavailable José Alonzo Attending Unavailable José Alonzo Admitting Unavailable Jean Pierre Kim DO Unavailable Meme Gong MD Unavailable Jean Pierre Kim DO Primary Care Provider CRISTOFER OLIVA [...] Attending Unavailable ANG, MARQUIS Contreras Referring Unavailable JEAN PIERRE KIM Attending Unavailable PETITTSintia, FLORECITA Carlson Attending Unavailable PETITTI, FLORECITA Carlson Attending Unavailable DEMETRICE, AUGUSTA Modi Attending Unavailable DEMETRICE, AUGUSTA Modi Attending Unavailable HAZEL, CRISTOFER Siddiqui Attending Unavailable DEMETRICE, AUGUSTA Modi Attending Unavailable SURESH, AUGUSTA Modi Attending Unavailable JEAN PIERRE KIM Attending Unavailable LE HERZOG Referring Unavailable DIAB, STACEY Referring Unavailable SKIE, DENIZ Attending Unavailable SKIE, DENIZ Admitting Unavailable SKIE, DENIZ Attending Unavailable TEMO, LE Referring Unavailable SKIE, DENIZ Referring Unavailable SKIE, DENIZ Referring Unavailable TEMO, LE Referring Unavailable TEMO, LE Referring Unavailable Allergies Allergy Classification Reported Allergen(s) Allergy Type Date of Onset Reaction(s) Facility (6 sources) buPROPion Drug Allergy 03-20-2023 [facility] (1 source) buPROPion; Translations: [BUPROPION HCL] Drug Allergy 02-08-2024 [facility] Repository Medications Current Medications Medication Drug Class(es) Dates [...] 180 tablet 3 08/11/2023 Active estrogens, conjugated (jail) 0.625 mg/ml vaginal cream (2 sources) Estrogen [...] Start: 12-10-2021 take 1 capsule by mo [facility] once daily Venlafaxine (Effexor Xr) 150 mg [...] 12-26-2022 Chronic Joint disorders and dislocations; trauma-related (6 sources) Unspecified subluxation of unspecified shoulder joint, initial encounter; Translations: [Unspecified dislocation of unspecified finger, initial encounter] Onset: 03-11-2022 Resolved: 03-11-2022 Episodic Open wounds of extremities (2 sources) Unspecified open wound of right middle finger without damage to nail, initial encounter; Translations: [Unspecified open wound of right middle finger without damage to nail, initial encounter] Onset: 02-08-2024 Episodic Osteoarthritis (13 sources) Bilateral primary osteoarthritis [...] 02-26-2023 Chronic Other aftercare (1 source) Other snf (current) drug therapy; Translations: [OTH SHELTER CURRENT DRUG THERAPY] Onset: 02-05-2022 Episodic Other aftercare (1 source) [facility]DC (current) use of oral hypoglycemic drugs; Translations: [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 Normal [facility] Orders Onlyon 03-04-2024 Orders Only [id number] Christina Woodward 1950 F Date Provider Department Center 03/04/2024 [id number]-KRUNAL CROWDER MP ORTHO MPORTHO No family history on file [facility] 36on 03-03-2024 36 Patient states she h as another appointment on the same day as her appointment with Dr. Roldan. She would like to know if it would be okay if she comes to the appointment late, since her other appointment is about an hour away. Advised her of 15 minute late period - she states she would be about 15 minutes late. Please give patient a call if this will be an issues. [facility] 36 Pt is scheduled for post op appt on 03/10 that she needs to reschedule I was only able to offer 04-12 anything sooner?? [facility] Office Visiton 02-25-2024 Follow-up visit [id number] Christina Woodward 1950 F Date Provider Department Center 02/25/2024 438-DENIZ ROLDAN MP No family history on file Level of Service:31645 [place] POSTOP FOLLOW UP VISIT RELATED TO ORIGINAL PX Reason for Visit and Comments: Post-op [483] [facility] 36on 02-16-2024 36 Sent to [facility] 02-13-2024 36 Sent to [facility] 36 Sent to [facility] 02-09-2024 30 Problem: Pain - Adul t Goal: Verbalizes/displays adequate comfort level or baseline comfort level Outcome: Progressing Flowsheets (Taken 02/09/2024 1247) Verbalizes/displays adequate comfort level or baseline comfort level: Encourage patient to monitor pain and request assistance Assess pain using appropriate pain scale Administer analgesics based on type and severity of pain and evaluate response Implement non-pharmacological measures as appropriate and evaluate response Consider cultural and social influences on pain and pain management Problem: Safety - Adult Goal: Free from fall injury Outcome: Progressing Flowsheets (Taken 02/09/2024 1247) Free from fall injury: Assess patient frequently for physical needs Identify cognitive and physical deficits and behaviors that affect risk of falls Educate patient/family on patient safety, including physical limitations Modify environment to reduce risk of injury Instruct patient to call for assistance with activity based on assessment [facility] 30 Daily Case Managemen t Update Multidisciplinary rounds have been completed. Barriers to Discharge: Pending Clinical course. Transfer from [facility], I&D at bedside today R finger. Await PT/OT. From home Diet: Dietary Orders (From admission, onward) Start Ordered 02/09/24 0001 Diet NPO Diet effective midnight Comments: Sips with medications Question: Reason for NPO: Answer: Operation/Procedure 02/08/242108 Physician Expected Discharge Date: 02/10/2024 Discharge Delays: PT Six Click Score: 23 OT Six Click Score: PT Recommendations: OT Recommendations: New Consults: Consult Orders (From admission, onward) Start Ordered 02/08/24 1845 Inpatient Consult to Orthopaedic Surgery Once Specialty: Orthopaedic Surgery Provider: (Not yet assigned) Question Answer Comment Consulting Group ORTHOPAEDIC SURGERY TEAM Reason for Consult? finger dislocation Level of Consultation Consultation and Management 02/08/24 1845 Ancillary Consults (From admission, onward) Start Ordered 02/09/24 0749 Inpatient consult to Social Work Once Provider: (Not yet assigned) Question Answer Comment Select all services needed for the patient Home Health Types of Home Health Service needed Wound Care Please indicate your approval for this care by adding your name here: DENIZ ROLDAN 02/09/24 0749 Therapy Orders (From admission, onward) Start Ordered 02/09/24 0746 PT eval and treat Until therapy completed Question: Reason for PT? Answer: weakness 02/09/24 0748 02/09/24 0746 OT eval and treat Until therapy completed Question: Reason for OT? Answer: weakness 02/09/24 0748 Normal [facility] HPon 02-09-2024 HP H&P reviewed. The patient was examined and there are no changes to the H&P. Normal [facility] MRSA/MSSA DNA NASALon 2023 MRSA DNA Negative Normal Negative [facility] Comment on above: Order Comment: Testi lisy methodology is an automated qualitative in vitro diagnostic test for the directdetection and differentiation of Staphylococcus aureus (SA) DNA and methicillin-resistant Staphylococcus aureus (MRSA) DNA from nasal swabs in patients at risk for nasal colonization. The test utilizes real-time polymerase chain reaction (PCR) for the amplification of MRSA/SA DNA and fluorogenic target-specific hybridization probes for the detection of the amplified DNA. A negative result does not preclude nasal colonization. Performed By: #### L [id number] ####[facility] ([facility])[address] [place] [address] MSSA DNA Negative Normal Negative [facility] Comment on above: Order Comment: Testi ng methodology is an automated qualitative in vitro diagnostic test for the directdetection and differentiation of Staphylococcus aureus (SA) DNA and methicillin-resistant Staphylococcus aureus (MRSA) DNA from nasal swabs in patients at risk for nasal colonization. The test utilizes real-time polymerase chain reaction (PCR) for the amplification of MRSA/SA DNA and fluorogenic target-specific hybridization probes for the detection of the amplified DNA. A negative result does not preclude nasal colonization. Performed By: #### L [id number] ####[facility] ([facility])[address] [place] [address] OPNOTEon 02-09-2024 OPNOTE Operative Note Patient: Christina Woodward Date of Surgery: 02/09/2024 Pre-operative Diagnosis: Open dislocation PIP joint right long finger Post-operative Diagnosis: same Operation: 1. Irrigation and nonexcisional debridement of open joint, 2. Pinning PIP joint right long finger, 3. Extensor tendon repair right long finger, 4. Repair of ulnar collateral ligament PIP joint right long finger Surgeon: Deniz Roldan MD Autocad Electrical Designer: Chuckie Miner MD Staff: Bunker Worker: Cara Andrews RN Scrub Person: Rae Fry Anesthesia Type: MAC Indications: The patient is an 73 y.o. female with a open dislocation of the PIP of her right long finger. She was walking her dog yesterday afternoon when the dog took off and her finger was caught on the leash. She had a open dislocation with actually a very large laceration that goes obliquely almost circumferentially around the finger starting dorsally over the mid middle phalanx and extending around the ulnar side of the joint and ending just distal to the MP flexion crease on the radial side of her finger. In the emergency room the wound was cleaned out. She is brought to the operating room today for formal debridement, pinning, and then repair of structures as necessary. She is brought to the operating room today for that purpose. The risks and benefits of the procedure were explained prior to surgery, and with good understanding it is agreed to proceed. Procedure: The patient is brought to the operating room and placed on the table in a supine position. The right arm is placed onto a hand table. She is already received IV antibiotics. A tourniquet is placed around the proximal right arm and the right upper extremity is prepped and draped out in a sterile fashion. To begin the procedure, after standard timeout, she is sedated per the anesthesia service and the finger is anesthetized using a digital block of 1% lidocaine. The arm was then exsanguinated with an Esmarch bandage and the tourniquet is inflated to 250 mmHg. To begin with I just began evaluating the extent of the injury. The joint is grossly unstable. There is remnants of the collateral ligament still attached to the condyle of the proximal phalanx on the ulnar side of the finger. The central slip was avulsed but there is a small tail of some tendon that we can use to suture back to. There was concern about the ulnar neurovascular bundle but I dissected that out and it is intact. She does have a moderate amount of arthritis in the joint already with significant thinning of the cartilage on the condyles of the proximal phalanx. At this point we irrigated the finger out using a cystoscopy set up and 1 L of normal saline solution. We started a 4.045 K wire in the center of the condyles and brought it out through the dorsal cortex. The pin was placed at about a 25 degree angle. We put a second pin slightly oblique for that to help control rotation. The PIP joint was reduced and her longitudinal pin was placed. C-arm was brought in and we readjusted the finger just slightly until we were happy with the pin position and the joint reduction. Our antirotation pin was advanced across the 4 cortices. Once we are happy with the pin positions there were both bent, cut, and left out percutaneously. We then did the soft tissue repairs. A notejn-ex-atshj sutures placed into the collateral ligament repairing that bit back to the base of the middle phalanx. There was soft tissue and periosteum at the base that we could get a nice bite of the suture into. A second rwpifa-tb-nynyf suture was used to repair the central slip back to the dorsal portion of the base of the middle phalanx. Again there remnant of the tendon insertion was used as a repair site. Everything looks pretty good. The skin is repaired with interrupted 5-0 Prolene sutures. A sterile dressing of Xeroform gauze, 4 x 4 fluffs, Rigoberto and tape is applied to the finger. The tourniquet is released and the drapes are removed. She is brought to the recovery area in stable condition, having tolerated the procedure well. Estimate Blood Loss: Minimal Total IV Fluids: Per anesthesia record Specimens: No specimens collected Implants: Implants Type Name Action Serial No. Pin K-WIRE,1.1,120MM - [id number] Implanted Complications: None Disposition: PACU Condition: stable Deniz Roldan MD Normal [facility] POCT GLUCOSE METER UNSOLICIT ED RESULTSon 02-09-2024 Glucose [Mass/Vol] 104 mg/dL Normal 70-105 [facility] Comment on above: Order Comment: Waive d Testing in the ED is performed under the ED CLIA certificate #[id number]. Result Comment: asor [email or web address] Performed By: #### L [id number] #### [facility] [address] [place] [address] Glucose [Mass/Vol] 96 mg/dL Normal 70-105 [facility] Comment on above: Order Comment: Waive d Testing in the ED is performed under the ED CLIA certificate #[id number]. Result Comment: elliac sidra Performed By: #### L [id number] #### [facility] ([facility]) [address] [place] [address] BASIC METABOLIC PANELon 01-19 Anion gap [Moles/Vol] 12 mmol/L Normal 7-20 [facility] Comment on above: Performed By: #### L [id number] #### [facility] ([facility]) [address] [place] [address] Calcium [Mass/Vol] 8.5 mg/dL Low 8.6-10.3 [facility] Comment on above: Performed By: #### L [id number] #### [facility] ([facility]) [address] [place] [address] Chloride [Moles/Vol] 106 mmol/L Normal 98-107 [facility] Comment on above: Performed By: #### L [id number] #### [facility] ([facility]) [address] [place] [address] CO2 [Moles/Vol] 25 mmol/L Normal 21-31 [facility] Comment on above: Performed By: #### L [id number] #### [facility] ([facility]) [address] [place] [address] Creatinine [Mass/Vol] 0.60 mg/dL Normal 0.60-1.20 [facility] Comment on above: Performed By: #### L [id number] #### [facility] ([facility]) [address] [place] [address] GLOMERULAR FILTRATION RATE ML/MIN/1.73 SQ M.PREDICTED 95.9 mL/min/1.73m*2 Normal >60.0 [facility] Comment on above: Result Comment: The [facility]???s estimated glomerular filtration rate (eGFR) will no longer include consideration of race in its calculation. The National Kid[employer] Foundation???s eGFR Task Force developed new recommendations for the estimation of the glomerular filtration rate in the [place] They recommend immediate implementation of the new equation refit without the race variable in all laboratories because the calculation does not include race. In addition to not including race in the calculation and reporting, it included diversity in its development, and has acceptable performance characteristics and potential consequences that do not disproportionately affect any one group of individuals. Performed By: #### L [id number] #### [facility] ([facility]) [address] [place] [address] Glucose [Mass/Vol] 85 mg/dL Normal 70-100 [facility] Comment on above: Performed By: #### L [id number] #### [facility] ([facility]) [address] [place] [address] Potassium [Moles/Vol] 3.8 mmol/L Normal 3.5-5.1 [facility] Comment on above: Performed By: #### L [id number] #### [facility] ([facility]) [address] [address] Sodium [Moles/Vol] 139 mmol/L Normal 136-145 [facility] Comment on above: Performed By: #### L [id number] #### [facility] ([facility]) [address] [place] [address] Urea nitrogen [Mass/Vol] 10 mg/dL Normal 7-25 [facility] Comment on above: Performed By: #### L [id number] #### [facility] ([facility]) [address] [place] [address] UREA NITROGEN/CREATININE (MASS RATIO) IN SER/PLAS 16.7 Normal [facility] Comment on above: Performed By: #### L [id number] #### [facility] ([facility]) [address] [address] CBC WITH AUTO DIFFERENTIALon 02-08-2024 Basophils (Bld) [#/Vol] 0.04 10*3/uL Normal 0.00-0.20 [facility] Comment on above: Performed By: #### L [id number] #### [facility] ([facility]) [address] [place] [address] Basophils/100 WBC (Bld) 0.4 % Normal 0.0-1.0 [facility] Comment on above: Performed By: #### L [id number] #### [facility] ([facility]) [address] [place] [address] Eosinophils (Bld) [#/Vol] 0.25 10*3/uL Normal 0.00-0.50 [facility] Comment on above: Performed By: #### L [id number] #### [facility] ([facility]) [address] [place] [address] Eosinophils/100 WBC (Bld) 2.7 % Normal 0.0-6.0 [facility] Comment on above: Performed By: #### L [id number] #### [facility] ([facility]) [address] [place] [address] Erythrocyte distribution width (RBC) [Ratio] 13.8 % Normal 11.5-15.0 [facility] Comment on above: Performed By: #### L [id number] #### [facility] ([facility] [address] [place] [address] ERYTHROCYTE MEAN CORPUSCULAR HEMOGLOBIN CONCENTRATION (G/DL) BY AUTOMATED 32.4 g/dL Normal 32.0-35.0 [facility] Comment on above: Performed By: #### L [id number] #### [facility] ([facility] [address] [place] [address] Hematocrit (Bld) [Volume fraction] 39.8 % Normal 36.0-48.0 [facility] Comment on above: Performed By: #### L [id number] #### [facility] ([facility]) [address] [place] [address] Hemoglobin (Bld) [Mass/Vol] 12.9 g/dL Normal 12.0-15.0 [facility] Comment on above: Performed By: #### L [id number] #### [facility] ([facility] [address] [place] [address] Immature granulocytes (Bld) [#/Vol] 0.02 10*3/uL Normal 0.00-0.20 [facility] Comment on above: Performed By: #### L [id number] #### [facility] ([facility]) [address] [place] [address] Immature granulocytes/100 WBC (Bld) 0.2 % Normal 0.0-1.0 [facility] Comment on above: Performed By: #### L [id number] #### [facility] ([facility]) [address] [place] [address] Lymphocytes (Bld) [#/Vol] 2.74 10*3/uL Normal 1.20-4.00 [facility] Comment on above: Performed By: #### L [id number] #### [facility] ([facility]) [address] [place] [address] Lymphocytes/100 WBC (Bld) 29.6 % Normal 20.0-45.0 [facility] Comment on above: Performed By: #### L [id number] #### [facility] ([facility]) [address] [place] [address] MCH (RBC) [Entitic mass] 31.2 pg Normal 27.0-33.0 [facility] Comment on above: Performed By: #### L [id number] #### [facility] ([facility]) [address] [place] [address] MCV (RBC) [Entitic vol] 96.4 fL Normal 82.0-98.0 [facility] Comment on above: Performed By: #### L [id number] #### [facility] ([facility]) [address] [place] [address] Monocytes (Bld) [#/Vol] 0.77 10*3/uL Normal 0.10-1.00 [facility] Comment on above: Performed By: #### L [id number] #### [facility] ([facility]) [address] [place] [address] Monocytes/100 WBC (Bld) 8.3 % Normal 5.0-12.0 [facility] Comment on above: Performed By: #### L [id number] #### [facility] ([facility]) [address] [place] [address] Neutrophils (Bld) [#/Vol] 5.45 10*3/uL Normal 1.60-7.60 [facility] Comment on above: Performed By: #### L [id number] #### [facility] ([facility]) [address] [place] [address] Neutrophils/100 WBC (Bld) 58.8 % Normal 40.0-72.0 [facility] Comment on above: Performed By: #### L [id number] #### [facility] ([facility]) [address] [place] [address] NRBC (PER 100 WBCS) BY AUTOMATED COUNT 0.0 % Normal 0 [facility] Comment on above: Performed By: #### L [id number] #### [facility] ([facility]) [address] [place] [address] PLATELETS (10*3/UL) IN BLOOD AUTOMATED COUNT 342 10*3/uL Normal 150-400 [facility] Comment on above: Performed By: #### L [id number] #### [facility] ([facility]) [address] [place] [address] RBC (Bld) [#/Vol] 4.13 10*6/uL Normal 3.80-5.00 [facility] Comment on above: Performed By: #### L [id number] #### [facility] ([facility]) [address] [place] [address] WBC (Bld) [#/Vol] 9.27 10*3/uL Normal 4.00-10.60 [facility] Comment on above: Performed By: #### L [id number] #### [facility] ([facility]) [address] [place] [address] CT CERVICAL SPINE WO IV CONT RASTon 02-08-2024 CT CERVICAL SPINE WO IV CONTRAST CT CERVICAL SPINE WO IV CONTRAST 02/08/2024 7:02 PM CLINICAL INDICATIONS: History of fall today. Neck pain PROTOCOL: TECHNIQUE: Multi detector CT axial slices of the cervical spine are obtained from the occiput to the T4 vertebral body without IV contrast. Volumetric acquisition sagittal, coronal, and 3-D reconstructions were performed and reviewed on a separate workstation. All CT scans at this facility use dose modulation, iterative reconstruction, and/or weight based dosing when appropriate to reduce radiation dose to as low as reasonably achievable COMPARISON: None. FINDINGS: Sagittal reconstruction revealed disc space narrowing and bony spurring at C5-6 and more prominent at C6-7 level. There is minimal anterolisthesis at C6-7 secondary to facet joint disease. Bilateral facet joint disease is also appreciated with joint space narrowing, bony spurring and sclerotic changes seen. Bony spurring at C1-2 but satisfactory alignment and coronal reconstruction. No acute bony pathology. Prevertebral soft tissue space is unremarkable. Axial images over the lung apex did not reveal any parenchymal abnormalities or pneumothorax. 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 Mild vascular calcification at the aortic arch. Mild paraseptal apical emphysematous changes IMPRESSION: Mild to moderate lower cervical spondylosis with no evidence of acute bony pathology or malalignment. Electronically signed: Mary Martinez MD. Normal [facility] CT HEAD WO IV CONTRASTon CT HEAD WO IV CONTRAST CT HEAD WO IV CONTRAST 02/08/2024 7:02 PM CLINICAL INDICATIONS: History of fall today. Pain TECHNOLOGIST COMMENTS: Recent fall QUESTION FOR THE RADIOLOGIST: Evaluate possible intracranial bleeding PROTOCOL: TECHNIQUE:Multi-detect or CT axial slices of the brain were obtained without IV contrast. Helical,sagittal, coronal, and 3-D reconstructions were performed and viewed on a separate workstation. All CT scans at this facility use dose modulation, iterative reconstruction, and/or weight based dosing when appropriate to reduce radiation dose to as low as reasonably achievable COMPARISON: None. FINDINGS: There is no shift of the midline structures, acute intracranial bleeding, mass effects, or evidence of acute ischemia. The ventricular system is normal in size for age with prominent cortical sulci and sylvian fissures suggesting age-appropriate mild senescent atrophic changes. The brainstem and the cerebellum are unremarkable. The visualized intraorbital contents, the visualized paranasal sinuses, and the infratemporal soft tissues show no acute abnormality. The osseous structures in the skull base and the calvarium show no abnormality. Mucoperiosteal thickening in the ethmoid air cells suggesting mild chronic sinus disease and involvement of the sphenoid sinuses as well. Maxillary and frontal sinuses appear unremarkable as well as the mastoid air cells. IMPRESSION: Age-appropriate mild senescent atrophic changes with no evidence of acute intracranial bleeding or pathology. Electronically signed: Mary Martinez MD. Normal [facility] EDNURSon 02-08-2024 [facility]S [facility] -- Attestation signed by Deniz Roldan MD at 02/09/2024 8:24 AM I did not personally examine the patient. I discussed the case with the resident and agree with the plan. ORTHOPEDIC SURGERY CONSULTATION CHIEF COMPLAINT: right long finger injury HPI: Christina Woodward is a 73 y.o. female with complaint of right long finger injury. Pain began after their finger got caught in their dog's collar as the dog took off running. They presented to the [facility] Emergency Department where x-rays were obtained which demonstrated a radially displaced third PIP joint with soft tissue swelling. They deny any new onset numbness, tingling, or weakness to the right long finger. They deny any other injuries or constitutional symptoms. They currently rate their pain as 7/10. PMH: DM, HTN, HLD, SAMANTHA, Mild to moderate concentric left ventricular hypertrophy on echo Pertinent Surgical Hx: none Pertinent Social Hx: former smoker Currently taking any blood thinners: none Personal or family history of bleeding or clotting disorders: none Personal or family history of problems with anesthesia: none History reviewed. No pertinent past medical history. History reviewed. No pertinent surgical history. No Known Allergies No current facility-administered medications for this encounter. No current outpatient medications on file. Social History Socioeconomic History Marital status: Spouse name: Not on file Number of children: Not on file Years of education: Not on file Highest education level: Not on file Occupational History Not on file Tobacco Use Smoking status: Never Smokeless tobacco: Never Substance and Sexual Activity Alcohol use: Yes Drug use: Yes Types: Other Comment: Medical marijuana Sexual activity: Defer Other Topics Concern Not on file Social History Narrative Not on file Social Determinants of Health Financial Resource Strain: Not on file Food Insecurity: Not on file Transportation Needs: Not on file Physical Activity: Not on file Stress: Not on file Social Connections: Not on file Intimate Partner Violence: Not on file Housing Stability: Not on file No family history on file. Pertinent review of systems negative except for what is documented in the HPI. Physical exam: Vitals: 02/08/241922 BP: (!) 148/91 Pulse: 85 Resp: 18 Temp: SpO2: 97% General: No acute distress, comfortable Respiratory: Unlabored breathing with normal rate, no cough Cardiovascular: Warm well perfused extremities Psych: Appropriate mood behavior MSK: RUE - Inspection: patient has an open laceration that extends from the volar side to the dorsal side of her proximal third phalanx; PIP joint is exposed to room air - ROM: no extension AROM - Compartments are soft and compressible - Sensation: patient received a block at the previous hospital, unable to assess - Motor function intact in median, ulnar, radial, AIN, PIN - Hand is WWP with BCR x 5, 2+ RP Labs: Lab Results Component Value Date WBC 9.27 02/08/2024 HGB 12.9 02/08/2024 HCT 39.8 02/08/2024 MCV 96.4 02/08/2024 PLT 342 02/08/2024 No results found for: GLU , CALCIUM , NA , K , CO2 , CL , BUN , CREATININE No results found for: INR , PROTIME Imaging: Radiographs of the right hand were reviewed and demonstrate a radially displaced third PIP joint with soft tissue swelling. Assessment: Christina Woodward is a 73 y.o.female with a traumatic open dislocation of the right long finger PIP joint. Plan: -After speaking at length with the patient and her regarding conservative and operative options including risks/benefits/alterna tives/indications, the patient is agreeable to surgical intervention. -Admit to orthopaedic surgery -Plan for OR on 02/09/24, informed consent signed -Diet: NPO at midnight -Weight bearing & activity status: NWB of RUE -Pain control, ice, and elevation of extremity -Antibiotics: ancef -PT/OT: postop -DVT ppx, discharge planning, and remainder of care per primary team This plan was discussed in detail with Dr. Yuli Grover MD Orthopedic Surgery Resident, PGY-1 02/08/2024 Normal [facility] PROTIME-INRon 02-08-2024 INR IN PPP BY COAGULATION ASSAY 0.98 Normal 0.90-1.10 [facility] Comment on above: Result Comment: ACCC P RECOMMENDED INR FOR WARFARIN THERAPY CONDITION INR PROPHYLAXIS OF VENOUS THROMBOSIS 2-3 (HIGH-RISK SURGERY) TREATMENT OF VENOUS THROMBOSIS 2-3 TREATMENT OF PULMONARY EMBOLISM 2-3 PREVENTION OF SYSTEMIC EMBOLISM: 2-3 ACUTE MYOCARDIAL INFARCTION TISSUE HEART VALVES VALVULAR HEART DISEASE ATRIAL FIBRILLATION RECURRENT SYSTEMIC EMBOLISM MECHANICAL HEART VALVE 2.5-3.5 FROM: ORAL ANTICOAGULANTS. MECHANISM OF ACTION, CLINICAL EFFECTIVENESS, AND OPTIMAL THERAPEUTIC RANGE. CHEST 1995;108:231S-246S. Performed By: #### L [id number] #### [facility] (BEAKER) [address] [place] [address] PROTHROMBIN TIME (PT) IN PPP BY COAGULATION ASSAY 13.0 Seconds Normal 12.3-14.8 [facility] Comment on above: Performed By: #### L AB320 #### [facility] (BEAKER) [address] [place] [address] TYPE AND SCREENon 02-08-2024 AB SCREEN Negative Normal [facility] Comment on above: Performed By: #### L AB276 #### [facility]OD [facility] , ABO group Nom (Bld) O Normal [facility] Comment on above: Performed By: #### L [id number] #### [facility] , RH TYPE IN BLOOD Positive Normal [facility] Comment on above: Performed By: #### L AB276 #### [facility] , VITAMIN D 25 HYDROXYon 02-07 CALCIDIOL (25 [place] VITAMIN D3) (NG/ML) IN SER/PLAS 49.9 ng/mL Normal 30.0-80.0 [facility] Comment on above: Result Comment: >80. 0 Toxicity possible Performed By: #### L [id number] ####[facility] (JUAN RAMON)[address] [place] [address] BI MAMMOGRAM SCREENING TOMOS ESDRAS BILATERALon 07-17-2023 [...] IS VERY IMPORTANT TO YOUR HEALTH. THE [employer] GUIDELINES RECOMMEND THAT WOMEN 40 [...] MD Normal Not Available ECH echo transthoracicon ECH echo transthoracic [facility] Main [place] [id number] Echocardiogram Signed Patient: Christina Woodward MR#: [id number] : 1950 Acct:[id number] Age/Sex: 72 / F ADM Date: 01/03/23 Loc: Room: Type: [facility] Attending Dr: Ning ORTIZ Ordering Provider: Ning ORTIZ Date of Service: 01/03/23/ ECH/ECH echo transthoracic: murmur. Copies to: Ning Ramos [...] V1 max: 184.5 cm/sec (0.7-1.7m/s)MV E max bridgette: 65.1 cm/sec(0.8-1.3m/s) MV A max bridgette: 113.2 cm/sec(0.0-0.0m/s) MV E/A: 0.57 (<1.5) MMode/2D Measurements Calculations TAPSE: 2.2 cm FS: 30.5 % Ao root area: LVOT diam: 2.1 cm RV S Bridgette: EDV(Teich): 6.5 cm2 LVOT area: 3.5 cm2 [...] max PG: TV max PG: TR max bridgette: 13.6 mmHg 22.0 mmHg 235.6 cm/sec LV V1 mean PG: TR max P.2 mmHg 8.3 mmHg RAP systole: 3.0 mmHg LV V1 mean: 139.1 cm/sec LV V1 VTI: 26.1 cm Transcribed By: SCV Performed At: 01/03/23 1557 Signed By: Adrianne Ramos MD 01/03/23 1638 Normal [facility] FREE T3on 06-18-2022 FREE T3 2.83 pg/mlL Normal 2.18-3.98 [facility] Comment on above: Performed By: #### T SH, FT3, BMP ####[facility] [address] [place] [address]Dr. Mary Ellen Rolon FREE T4on 06-18-2022 Free T4 [Mass/Vol] 1.03 ng/dL Normal 0.76-1.46 [facility] [place] Comment on above: Performed By: #### F T4 #### [facility] [address] [place], [place] [address] Dr. Mary Ellen Rolon GLYCOHEMOGLOBIN A1Con 2021 ADA RECOMMENDATION SEE BELOW Normal [facility] [place] Comment on above: Result Comment: ADA RECOMMENDED LIMIT 4.0 - 6.0 ADA THERAPEUTIC TARGET < 7.0 ACTION SUGGESTED > 7.0 Performed By: #### A 1C ####[facility] [address] [place] [address]Dr. Mary Ellen Rolon Glucose [Mass/Vol] 137 mg/dL Normal [facility] Comment on above: Performed By: #### A 1C ####[facility] [address] [place] [address]Dr. Mary Ellen Rolon HbA1c (Bld) [Mass fraction] 6.4 % Critically high 4.5-6.2 [facility] Comment on above: Performed By: #### A 1C ####[facility] [address] [place], [place] [address]Dr. Mary Ellen Rolon PROF CHEM 8 (BAS METB)on Anion gap [Moles/Vol] 11.5 mmol/L Normal [facility] Comment on above: Performed By: #### T ISRAEL, FT3, BMP ####[facility] [address] [place], [place] [address]Dr. Mary Ellen Rolon Calcium [Mass/Vol] 9.2 mg/dL Normal 8.5-10.1 [facility] Comment on above: Performed By: #### T ISRAEL, FT3, BMP ####[facility] [address] [place], [place] [address]Dr. Mary Ellen Rolon Chloride [Moles/Vol] 102 mmol/L Normal 98-107 [facility] Comment on above: Performed By: #### T ISRAEL, FT3, BMP ####[facility] [address] [place], [place] [address]Dr. Mary Ellen Rolon CO2 [Moles/Vol] 29.5 mmol/L Normal 21.0-32.0 [facility] Comment on above: Performed By: #### T ISRAEL, FT3, BMP ####[facility] [address] [place], [place] [address]Dr. Mary Ellen Rolon Creatinine [Mass/Vol] 0.66 mg/dL Normal 0.55-1.02 [facility] Comment on above: Performed By: #### T ISRAEL, FT3, BMP ####[facility] [address] [place], [place] [address]Dr. Mary Ellen Rolon EGFR-AF HONDURAN >60 Normal >=60 [facility] Comment on above: Performed By: #### T ISRAEL, FT3, BMP ####[facility] [address] [place], [place] [address]Dr. Mary Ellen Rolon EGFR-NON AF HONDURAN >60 Normal >=60 [facility] Comment on above: Performed By: #### T ISRAEL, FT3, BMP ####[facility] [address] [place] [address]Dr. Mary Ellen Rolon Glucose [Mass/Vol] 120 mg/dL Critically high 74-106 [facility] Comment on above: Performed By: #### T ISRAEL, FT3, BMP ####[facility] [address] [place] [address]Dr. Mary Ellen Rolon Potassium [Moles/Vol] 4.0 mmol/L Normal 3.5-5.1 [facility] Comment on above: Performed By: #### T ISRAEL, FT3, BMP ####[facility] [address] [place] [address]Dr. Mary Ellen Rolon Sodium [Moles/Vol] 139 mmol/L Normal 136-145 [facility] [place] Comment on above: Performed By: #### T ISRAEL, FT3, BMP ####[facility] [address] [place] [address]Dr. Mary Ellen Rolon Urea nitrogen [Mass/Vol] 11.0 mg/dL Normal 7.0-18.0 [facility] Comment on above: Performed By: #### T ISRAEL, FT3, BMP ####[facility] [address] [place] [address]Dr. Mary Ellen Rolon Urea nitrogen/Creatinine [Mass ratio] 16.7 mg/mg Normal [facility] Comment on above: Performed By: #### T ISRAEL, FT3, BMP ####[facility] [address] [place] [address]Dr. Mary Ellen Rolon TSHon 06-18-2022 TSH 0.734 uIU/mL Normal 0.358-3.740 [facility] Comment on above: Performed By: #### T ISRAEL, FT3, BMP ####[facility] [address] [place], [place] [address]Dr. Mary Ellen Rolon SCREENING MAMMOGRAM W/BERONICA, BILATERAL*on [...] VERY IMPORTANT TO YOUR HEALTH. THE CURRENT [employer] AND [employer] NETWORK GUIDELINES RECOMMENDS ANNUAL MAMMOGRAPHY BEGINNING AT AGE 40 THIS FACILITY USES A REMINDER SYSTEM TO ENSURE ALL PATIENTS RECEIVE REMINDER NOTIFICATIONS AT THE APPROPRIATE TIME BASED ON THE RECOMMENDATIONS OF THIS EXAM. Board Certified Radiologist. Accredited by the ACR and FDA. Report reported and signed by Abhi Jefferson on 04/02/2022 1442 Normal [facility] Sr. Manager FREE T3on 02-08-2022 FREE T3 1.70 pg/mlL Critically low 2.18-3.98 [facility] Comment on above: Performed By: #### F T4, VITAD #### [facility] [address] [place] [address] [address] Mary Ellen Rolon GLYCOHEMOGLOBIN A1Con 2021 ADA RECOMMENDATION SEE BELOW Normal [facility] [place] Comment on above: Result Comment: ADA RECOMMENDED LIMIT 4.0 - 6.0 ADA THERAPEUTIC TARGET < 7.0 ACTION SUGGESTED > 7.0 Performed By: #### A 1C #### [facility] [address] [place] [address] [address] Mary Ellen Rolon Glucose [Mass/Vol] 148 mg/dL Normal [facility] [place] Comment on above: Performed By: #### A 1C #### [facility] [address] [place] [address] [address] Mary Ellen Rolon HbA1c (Bld) [Mass fraction] 6.8 % Critically high 4.5-6.2 [facility] Comment on above: Performed By: #### A 1C #### [facility] [address] [place] [address] [address] Mary Ellen Rolon LIPID PROFILEon 02-08-2022 CHOL-HDL RATIO NORM SEE BELOW Normal [facility] Comment on above: Result Comment: 3.3 - 4.4 LOW RISK 4.4 - 7.1 AVERAGE RISK 7.1 - 11.0 MODERATE RISK >11.0 HIGH RISK Performed By: #### T SH, FT3, T4, CMP, LIPID ####[facility] [address] [place] [id number]. Mary Ellen Rolon Cholesterol [Mass/Vol] 169 mg/dL Normal <=200 [facility] Comment on above: Performed By: #### T SH, FT3, T4, CMP, LIPID ####[facility] [address] [place] [id number]. Mary Ellen Rolon Cholesterol in HDL [Mass/Vol] 51 mg/dL Normal 40-60 [facility] Comment on above: Performed By: #### T SH, FT3, T4, CMP, LIPID ####[facility] [address] [place] [id number]. Mary Ellen Rolon Cholesterol in LDL [Mass/Vol] 86.8 mg/dL Normal [facility] Comment on above: Performed By: #### T SH, FT3, T4, CMP, LIPID ####[facility] [address] [place] [address]Dr. Mary Ellen Rolon Cholesterol.total/Ch olesterol in HDL [Mass ratio] 3.3 {ratio} Normal [facility] Comment on above: Performed By: #### T SH, FT3, T4, CMP, LIPID ####[facility] [address] [place] [address]Dr. Mary Ellen Rolon HDL NORMAL > or = 60 mg/dl - LO W CARDIOVASCULAR RISK <40 mg/dl - HIGH CARDIOVASCULAR RISK Normal [facility] Comment on above: Performed By: #### T SH, FT3, T4, CMP, LIPID ####[facility] [address] [place] [id number]. Mary Ellen Rolon LDL CALC NORMAL SEE BELOW Normal [facility] Comment on above: Result Comment: <100 mg/dl OPTIMAL 100 - 129 mg/dl NEAR OR ABOVE OPTIMAL 130 - 159 mg/dl BORDERLINE HIGH 160 - 189 mg/dl HIGH >190 mg/dl VERY HIGH Performed By: #### T SH, FT3, T4, CMP, LIPID ####[facility] [address] [place] [id number]. Mary Ellen Rolon Triglyceride [Mass/Vol] 156 mg/dL Critically high <=150 [facility] Comment on above: Performed By: #### T SH, FT3, T4, CMP, LIPID ####[facility] [address] [place] [address]Dr. Mary Ellen Rolon VLDL CALC 31.2 mg/dL Normal [facility] Comment on above: Performed By: #### T SH, FT3, T4, CMP, LIPID ####[facility] [address] [place] [address]Dr. Mary Ellen Rolon MICROALBUMIN, RAND URon - mALB <1.3 Normal <=30.0 [facility] Comment on above: Performed By: #### M ALBR ####[facility] [address] [place] [address]Dr. Mary Ellen Rolon PROF 14(COMP METB)on 022 Albumin [Mass/Vol] 3.6 g/dL Normal 3.4-5.0 [facility] [place] Comment on above: Performed By: #### T SH, FT3, T4, CMP, LIPID ####[facility] [address] [place] [address]Dr. Mary Ellen Rolon Albumin/Globulin [Mass ratio] 1.1 {ratio} Normal [facility] Comment on above: Performed By: #### T SH, FT3, T4, CMP, LIPID ####[facility] [address] [place] [address]Dr. Mary Ellen Rolon ALP [Catalytic activity/Vol] 77 U/L Normal 46-116 [facility] Comment on above: Performed By: #### T SH, FT3, T4, CMP, LIPID ####[facility] [address] [place] [address]Dr. Mary Ellen Rolon ALT [Catalytic activity/Vol] 22 U/L Normal 14-59 [facility] Comment on above: Performed By: #### T SH, FT3, T4, CMP, LIPID ####[facility] [address] [place] [address]Dr. Mary Ellen Rolon Anion gap [Moles/Vol] 11.7 mmol/L Normal [facility] Comment on above: Performed By: #### T SH, FT3, T4, CMP, LIPID ####[facility] [address] [place] [address]Dr. Mary Ellen Rolon AST [Catalytic activity/Vol] 12 U/L Critically low 15-37 [facility] Comment on above: Performed By: #### T SH, FT3, T4, CMP, LIPID ####[facility] [address] [place] [address]Dr. Mary Ellen Rolon Bilirubin [Mass/Vol] 0.3 mg/dL Normal 0.2-1.0 [facility] Comment on above: Performed By: #### T SH, FT3, T4, CMP, LIPID ####[facility] [address] [place], [place] [address]Dr. Mary Ellen Rolon Calcium [Mass/Vol] 8.6 mg/dL Normal 8.5-10.1 [facility] [place] Comment on above: Performed By: #### T SH, FT3, T4, CMP, LIPID ####[facility] [address] [place], [place] [address]Dr. Mary Ellen Rolon Chloride [Moles/Vol] 103 mmol/L Normal 98-107 [facility] Comment on above: Performed By: #### T SH, FT3, T4, CMP, LIPID ####[facility] [address] [place], [place] [address]Dr. Mary Ellen Rolon CO2 [Moles/Vol] 27.3 mmol/L Normal 21.0-32.0 [facility] Comment on above: Performed By: #### T SH, FT3, T4, CMP, LIPID ####[facility] [address] [place], [place] [address]Dr. Mary Ellen Rolon Creatinine [Mass/Vol] 0.67 mg/dL Normal 0.55-1.02 [facility] Comment on above: Performed By: #### T SH, FT3, T4, CMP, LIPID ####[facility] [address] [place] [address]Dr. Mary Ellen Rolon EGFR-AF HONDURAN >60 Normal >=60 [facility] Comment on above: Performed By: #### T SH, FT3, T4, CMP, LIPID ####[facility] [address] [place] [address]Dr. Mary Ellen Rolon EGFR-NON AF HONDURAN >60 Normal >=60 [facility] Comment on above: Performed By: #### T SH, FT3, T4, CMP, LIPID ####[facility] [address] [place] [address]Dr. Mary Ellen Rolon Globulin (S) [Mass/Vol] 3.3 g/dL Normal [facility] Comment on above: Performed By: #### T SH, FT3, T4, CMP, LIPID ####[facility] [address] [place] [address]Dr. Mary Ellen Rolon Glucose [Mass/Vol] 166 mg/dL Critically high 74-106 [facility] Comment on above: Performed By: #### T SH, FT3, T4, CMP, LIPID ####[facility] [address] [place] [address]Dr. Mary Ellen Rolon Potassium [Moles/Vol] 4.0 mmol/L Normal 3.5-5.1 [facility] Comment on above: Performed By: #### T SH, FT3, T4, CMP, LIPID ####[facility] [address] [place] [address]Dr. Mary Ellen Rolon Protein [Mass/Vol] 6.9 g/dL Normal 6.4-8.2 [facility] Comment on above: Performed By: #### T SH, FT3, T4, CMP, LIPID ####[facility] [address] [place], [place] [address]Dr. Mary Ellen Rolon Sodium [Moles/Vol] 138 mmol/L Normal 136-145 [facility] Comment on above: Performed By: #### T SH, FT3, T4, CMP, LIPID ####[facility] [address] [place] [address]Dr. Mary Ellen Rolon Urea nitrogen [Mass/Vol] 12.0 mg/dL Normal 7.0-18.0 [facility] Comment on above: Performed By: #### T SH, FT3, T4, CMP, LIPID ####[facility] [address] [place], [place] [address]Oi. Mary Ellen Rolon Urea nitrogen/Creatinine [Mass ratio] 17.9 mg/mg Normal [facility] Comment on above: Performed By: #### T SH, FT3, T4, CMP, LIPID ####[facility] [address] [place], [place] [address]Ra. Mary Ellen Rolon T4on 02-08-2022 T4 [Mass/Vol] 7.00 ug/dL Normal 4.80-13.90 [facility] Comment on above: Performed By: #### T SH, FT3, T4, CMP, LIPID ####[facility] [address] [place] [id number]. Mary Ellen Rolon TSHon 02-08-2022 TSH 3.041 uIU/mL Normal 0.358-3.740 [facility] Comment on above: Performed By: #### F T4, VITAD #### [facility] [address] [place], [place] [address] [address] CSPINE WO [...] by: BERKLEY GALINDO Date: 2022-02-01 17:23 Normal [facility] CT HEAD WO CONon 02-01-2022 [...] by: BERKLEY GALINDO Date: 2022-02-01 17:11 Normal [facility] XR HIP RT 2 3V W [...] MALAIKA NORTH Date: 2022-02-01 17:49 Normal [facility] XR HUMERUS RT MIN 2 Von [...] MALAIKA NORTH Date: 2022-02-01 17:47 Normal [facility] XR KNEE BETTYE 4V or >on [...] MEME MONTENEGRO Date: 2021-10-19 16:39 Normal [facility] XR RIBS RT PA Juliet 2 [...] MEME MONTENEGRO Date: 2021-10-19 16:41 Normal [facility] CBC AUTO DIFFon 08-09-2021 BASO # 0.0 103/ul Normal 0.0-0.1 [facility] [facility] Comment on above: Performed By: #### C BC ####[facility] [address]fr[address] [place] [address]DrGilberto Rolon Basophils/100 WBC (Bld) 0.4 % Normal 0.2-2.0 [facility] Comment on above: Performed By: #### C BC ####[facility] Agbbubhhog[address] [place], [place] [id number]. Mary Ellen Rolon EO # 0.5 103/ul Normal 0.0-0.7 [facility] Comment on above: Performed By: #### C BC ####[facility] Isdjonykl[address] [place], [place] [address]Dr. Mary Ellen Rolon Eosinophils/100 WBC (Bld) 6.6 % Normal 0.9-7.0 [facility] Comment on above: Performed By: #### C BC ####[facility] Lucpxxxnty[address] [place], [place] [address]Dr. Mary Ellen Rolon Erythrocyte distribution width (RBC) [Ratio] 13.9 % Normal 11.0-15.0 [facility] Comment on above: Performed By: #### C BC ####[facility] Zeiceqkwwc[address] [place], [place] [address]Dr. Mary Ellen Rolon Hematocrit (Bld) [Volume fraction] 42.6 % Normal 36.0-48.0 [facility] Comment on above: Performed By: #### C BC ####[facility] Upoxjpom[address] [place], [place] [address]Dr. Mary Ellen Rolon Hemoglobin (Bld) [Mass/Vol] 13.5 g/dL Normal 12.0-16.0 [facility] Comment on above: Performed By: #### C BC ####[facility] Vbgvgkbocl[address] [place], [place] [address]Dr. Mary Ellen Rolon IG # 0.04 10e3/ul Critically high 0.00-0.03 [facility] Comment on above: Performed By: #### C BC ####[facility] F[address]acyndyn[address] [place], [place] [address]Dr. Mary Ellen Rolon IG % 0.5 % Normal 0.0-0.5 [facility] Comment on above: Performed By: #### C BC ####[facility] Uxqoralvgq4[address] [place], [place] [address]Dr. Mary Ellen Rolon LYMPH # 2.2 103/ul Normal 1.2-3.8 [facility] Comment on above: Performed By: #### C BC ####[facility] [address]qpgnd[address] [place] [address]Dr. Mary Ellen Rolon Lymphocytes/100 WBC (Bld) 26.9 % Normal 20.5-60.0 [facility] Comment on above: Performed By: #### C BC ####[facility] [address] [place] [address]Dr. Mary Ellen Rolon MANUAL DIFF REQ NO Normal [facility] Comment on above: Performed By: #### C BC ####[facility] [address]hpzzhur[address] [place] [address]Dr. Mary Ellen Rolon MCH (RBC) [Entitic mass] 29.2 pg Normal 26.7-34.0 [facility] Comment on above: Performed By: #### C BC ####[facility] Fdrmpgegzb[address] [place], [place] [address]Dr. Mary Ellen Rolon MCHC (RBC) [Mass/Vol] 31.7 g/dL Normal 29.9-35.2 [facility] Comment on above: Performed By: #### C BC ####[facility] Xtefdnbqgl[address] [place], [place] [address]Dr. Mary Ellen Rolon MCV (RBC) [Entitic vol] 92.0 fL Normal 81.0-99.0 [facility] Comment on above: Performed By: #### C BC ####[facility] Vgitivqulp[address] [place], [place] [address]Dr. Mary Ellen Rolon MONO # 0.7 103/ul Normal 0.3-0.8 [facility] Comment on above: Performed By: #### C BC ####[facility] Qiucncuven[address] [place], [place] [address]Dr. Mary Ellen Rolon Monocytes/100 WBC (Bld) 8.1 % Normal 1.7-12.0 [facility] Comment on above: Performed By: #### C BC ####[facility] Pikioxufyk[address] [place], [place] [address]Dr. Mary Ellen Rolon NEUT # 4.7 103/ul Normal 1.4-6.5 [facility] Comment on above: Performed By: #### C BC ####[facility] [address] [place] [id number] Mary Ellen Rolon Neutrophils/100 WBC (Bld) 57.5 % Normal 43.0-75.0 [facility] Comment on above: Performed By: #### C BC ####[facility] [address]rkl[address]zxui[address] [place] [address]DrGilberto Mary Ellen Rolon Platelet mean volume (Bld) [Entitic vol] 9.1 fL Critically low 9.5-13.5 [facility] Comment on above: Performed By: #### C BC ####[facility] [address]ks[address]ocm[address] [place] [address]DrGilberto Mary Ellen Gonzales PLT 306 103/ul Normal 150-450 [facility] Comment on above: Performed By: #### C BC ####[facility] Izhpoeknya[address] [place] [address] Mary Ellen Gonzales RBC 4.63 106/ul Normal 4.20-5.40 [facility] Comment on above: Performed By: #### C BC ####[facility] Z[address]hipbsyj[address] [place] [phone] Mary Ellen Rolon WBC 8.2 103/ul Normal 4.0-11.0 [facility] Comment on above: Performed By: #### C BC ####[facility] [address]ropgfmimt[address] [place] [id number]. Mary Ellen Rolon FREE T3on 08-09-2021 FREE T3 3.32 pg/mlL Normal 2.77-5.27 [facility] Comment on above: Performed By: #### T SH, FT3, CMP, LIPID #### [facility] [address] [place], [place] [address] Dr. Mary Ellen Rolon FREE T4on 08-09-2021 Free T4 [Mass/Vol] 1.12 ng/dL Normal 0.78-2.19 [facility] Comment on above: Performed By: #### F T4, VITAD #### [facility] [address] [place] [address] [address] Mary Ellen Rolon GLYCOHEMOGLOBIN A1Con 2021 ADA RECOMMENDATION ADA THERAPEUTIC TARG ET 6.0 - 7.0 ACTION SUGGESTED > 7.0 Normal [facility] Comment on above: Performed By: #### A 1C ####[facility] [address]fqcxhw27[address] [place] [address]DrGilberto Rolon Glucose [Mass/Vol] 137 mg/dL Normal [facility] [place] Comment on above: Performed By: #### A 1C ####[facility] Psrmooxenh[address] [place] [address]DrGilberto Rolon HbA1c (Bld) [Mass fraction] 6.4 % Critically high <=6.0 [facility] Comment on above: Performed By: #### A 1C ####[facility] Kytrddmiun[address] [place] [address]Dr. Mary Ellen Rolon LIPID PROFILEon 08-09-2021 CHOL-HDL RATIO NORM SEE BELOW Normal [facility] Comment on above: Result Comment: 3.3 - 4.4 LOW RISK 4.4 - 7.1 AVERAGE RISK 7.1 - 11.0 MODERATE RISK >11.0 HIGH RISK Performed By: #### T SH, FT3, CMP, LIPID #### [facility] [address] [place] [address] [address] Mary Ellen Rolon Cholesterol [Mass/Vol] 142 mg/dL Normal <=200 [facility] Comment on above: Performed By: #### T SH, FT3, CMP, LIPID #### [facility] [address] [place] [address] [address] Mary Ellen Rolon Cholesterol in HDL [Mass/Vol] 49 mg/dL Normal [facility] Comment on above: Performed By: #### T SH, FT3, CMP, LIPID #### [facility] [address] [place] [address] [address] Mary Ellen Rolon Cholesterol in LDL [Mass/Vol] 65.6 mg/dL Normal [facility] Comment on above: Performed By: #### T SH, FT3, CMP, LIPID #### [facility] [address] [place] [address] [address] Mary Ellen Rolon Cholesterol.total/Ch olesterol in HDL [Mass ratio] 2.9 {ratio} Normal [facility] Comment on above: Performed By: #### T SH, FT3, CMP, LIPID #### [facility] [address] [place] [address] [address] Mary Ellen Rolon HDL NORMAL > or = 60 mg/dl - LO W CARDIOVASCULAR RISK <40 mg/dl - HIGH CARDIOVASCULAR RISK Normal [facility] Comment on above: Performed By: #### T SH, FT3, CMP, LIPID #### [facility] [address] [place] [address] [address] Mary Ellen Rolon LDL CALC NORMAL SEE BELOW Normal [facility] Comment on above: Result Comment: <100 mg/dl OPTIMAL 100 - 129 mg/dl NEAR OR ABOVE OPTIMAL 130 - 159 mg/dl BORDERLINE HIGH 160 - 189 mg/dl HIGH >190 mg/dl VERY HIGH Performed By: #### T SH, FT3, CMP, LIPID #### [facility] [address] [place] [address] Dr. Mary Ellen Rolon Triglyceride [Mass/Vol] 137 mg/dL Normal <=150 [facility] Comment on above: Performed By: #### T SH, FT3, CMP, LIPID #### [facility] [address] [place] [address] Dr. Mary Ellen Rolon VLDL CALC 27.4 mg/dL Normal [facility] Comment on above: Performed By: #### T SH, FT3, CMP, LIPID #### [facility] [address] [place] [address] Dr. Mary Ellen Rolon MICROALB CREAT RATIO RANDOMo n 08-09-2021 mALB 1.7 mg/L Normal <=30.0 [facility] Comment on above: Performed By: #### F T4, VITAD #### [facility] [address] [place] [address] Dr. Mary Ellen Rolon MALB CR RATIO 13.1 mg/g Normal 0.0-29.9 The [facility] Comment on above: Performed By: #### F T4, VITAD #### [facility] [address] [place] [address] Dr. Mary Eleln Rooln MALB CR RATIO RANGE SEE BELOW Normal [facility] Comment on above: Result Comment: NO M ICROALBUMINURIA 0-29 MG/G CLINICAL MICROALBUMINURIA 30-300 MG/G MACROALBUMINURIA >300 MG/G Performed By: #### F T4, VITAD #### [facility] [address] [place] [address] [address] Mary Ellen Rolon URINE CREAT 129.89 mg/dL Normal 20.00-300.00 [facility] Comment on above: Performed By: #### F T4, VITAD #### [facility] [address] [place] [address] [address] Mary Ellen Rolon PROF 14(COMP METB)on 022 Albumin [Mass/Vol] 3.5 g/dL Normal 3.5-5.0 [facility] [place] Comment on above: Performed By: #### T SH, FT3, CMP, LIPID #### [facility] [address] [place] [address] Dr. Mary Ellen Rolon Albumin/Globulin [Mass ratio] 1.1 {ratio} Normal [facility] Comment on above: Performed By: #### T SH, FT3, CMP, LIPID #### [facility] [address] [place] [address] Dr. Mary Ellen Rolon ALP [Catalytic activity/Vol] 79 U/L Normal 38-126 [facility] Comment on above: Performed By: #### T SH, FT3, CMP, LIPID #### [facility] [address] [place] [address] Dr. Mary Ellen Rolon ALT [Catalytic activity/Vol] 23 U/L Normal 9-52 [facility] Comment on above: Performed By: #### T SH, FT3, CMP, LIPID #### [facility] [address] [place] [address] Dr. Mary Ellen Rolon Anion gap [Moles/Vol] 11.7 mmol/L Normal [facility] Comment on above: Performed By: #### T SH, FT3, CMP, LIPID #### [facility] [address] [place] [address] [address] Mary Ellen Rolon AST [Catalytic activity/Vol] 11 U/L Critically low 14-36 [facility] Comment on above: Performed By: #### T SH, FT3, CMP, LIPID #### [facility] [address] [place] [address] [address] Mary Ellen Rolon Bilirubin [Mass/Vol] 0.4 mg/dL Normal 0.2-1.3 [facility] Comment on above: Performed By: #### T SH, FT3, CMP, LIPID #### [facility] [address] [place] [address] [address] Mary Ellen Rolon Calcium [Mass/Vol] 8.6 mg/dL Normal 8.4-10.2 [facility] Comment on above: Performed By: #### T SH, FT3, CMP, LIPID #### [facility] [address] [place] [address] Dr. Mary Ellen Rolon Chloride [Moles/Vol] 104 mmol/L Normal 98-107 [facility] Comment on above: Performed By: #### T SH, FT3, CMP, LIPID #### [facility] [address] [place] [address] [address] Mary Ellen Rolon CO2 [Moles/Vol] 28.3 mmol/L Normal 22.0-30.0 [facility] Comment on above: Performed By: #### T SH, FT3, CMP, LIPID #### [facility] [address] [place] [address] [address] Mary Ellen Rolon Creatinine [Mass/Vol] 0.65 mg/dL Normal 0.52-1.04 [facility] Comment on above: Performed By: #### T SH, FT3, CMP, LIPID #### [facility] [address] [place] [address] Dr. Mary Ellen Rolon EGFR-AF HONDURAN >60 Normal >=60 [facility] Comment on above: Performed By: #### T SH, FT3, CMP, LIPID #### [facility] [address] [place] [address] [address] Mary Ellen Rolon EGFR-NON AF HONDURAN >60 Normal >=60 [facility] Comment on above: Performed By: #### T SH, FT3, CMP, LIPID #### [facility] [address] [place] [address] [address] Mary Ellen Rolon Globulin (S) [Mass/Vol] 3.3 g/dL Normal [facility] Comment on above: Performed By: #### T SH, FT3, CMP, LIPID #### [facility] [address] [place] [address] [address] Mary Ellen Rolon Glucose [Mass/Vol] 138 mg/dL Critically high 74-106 [facility] Comment on above: Performed By: #### T SH, FT3, CMP, LIPID #### [facility] [address] [place] [address] Dr. Mary Ellen Rolon Potassium [Moles/Vol] 4.0 mmol/L Normal 3.4-5.0 [facility] Comment on above: Performed By: #### T SH, FT3, CMP, LIPID #### [facility] [address] [place] [address] Dr. Mary Ellen Rolon Protein [Mass/Vol] 6.8 g/dL Normal 6.1-8.2 [facility] Comment on above: Performed By: #### T SH, FT3, CMP, LIPID #### [facility] [address] [place] [address] Dr. Mary Ellen Rolon Sodium [Moles/Vol] 140 mmol/L Normal 137-145 [facility] Comment on above: Performed By: #### T SH, FT3, CMP, LIPID #### [facility] [address] [place] [address] Dr. Mary Ellen Rolon Urea nitrogen [Mass/Vol] 12.0 mg/dL Normal 7.0-17.0 [facility] Comment on above: Performed By: #### T SH, FT3, CMP, LIPID #### [facility] [address] [place] [address] Dr. Mary Ellen Rolon Urea nitrogen/Creatinine [Mass ratio] 18.5 mg/mg Normal [facility] Comment on above: Performed By: #### T SH, FT3, CMP, LIPID #### [facility] [address] [place], [place] [address] Dr. Mary Ellen Rolon TSHon 08-09-2021 TSH 0.209 uIU/mL Critically low 0.470-4.680 [facility] Comment on above: Performed By: #### T SH, FT3, CMP, LIPID #### [facility] [address] [place] [address] [address] Mary Ellen Rolon TSH RANGE SEE BELOW Normal [facility] Comment on above: Result Comment: <0.3 4 UIU/ml HYPERTHYROID 0.34-5.60 UIU/ml EUTHYROID >5.60 UIU/ml HYPOTHYROID Performed By: #### T SH, FT3, CMP, LIPID #### [facility] [address] [place] [address] [address] Mary Ellen Rolon VITAMIN D 25 OHon 08-09-2021 VIT D 25-OH 61.5 ng/mL Normal [facility] Comment on above: Performed By: #### F T4, VITAD #### [facility] [address] [place] [address] Dr. Mary Ellen Rolon VIT D RANGES SEE BELOW Normal [facility] Comment on above: Result Comment: <20 ng/mL Vit D deficient 20 - <30 ng/mL Vit D insufficient 30 - 100 ng/mL Vit D sufficient >100 ng/mL Potential Toxicity Performed By: #### F T4, VITAD #### [facility] [address] [place] [address] Dr. Mary Ellen Rolon Vital Signs Date Time Vital Sign Value Performing Clinician Facility 08-22-2023 10:20-0500 Body height 167.6 cm Marquis WALTON Work Phone: [facility] 08-22-2023 10:20-0500 Body mass index (BMI) [Ratio] 25.18 kg/m2 Marquis WALTON Work Phone: [facility] 08-22-2023 10:20-0500 Body weight 70.76 kg Marquis WALTON Work Phone: [facility] 07-02-2023 11:15-0500 Body height 167.64 cm Meme Gong Other [employer] Other 07-02-2023 11:15-0500 Body mass index (BMI) [Ratio] 26.14 kg/m2 Meme Beltran Other [employer] Other 07-02-2023 11:15-0500 Body weight 73.48 kg Meme Beltran Other [employer] Other 07-02-2023 11:15-0500 Diastolic blood pressure 71 mm[Hg] Meme Beltran Other [employer] Other 07-02-2023 11:15-0500 SaO2% (BldA) [Mass fraction] 96 % Meme Beltran Other [employer] Other 07-02-2023 11:15-0500 Systolic blood pressure 127 mm[Hg] Meme Beltran Other [employer] Other 06-27-2022 10:00-0500 Body height 167.64 cm Le Lam Other [employer] Other 06-27-2022 10:00-0500 Body mass index (BMI) [Ratio] 29.37 kg/m2 Le Olexa Other [employer] Other 06-27-2022 10:00-0500 Body weight 82.56 kg Le Olexa Other [employer] Other Encounters Encounter Date Encounter Type Care Provider Facility Start: 02-26-2024 End: 02-26-2024 ambulatory AUGUSTA SURESH Not Available Start: 02-25-2024 ambulatory [facility] Start: 02-12-2024 End: 02-12-2024 ambulatory AUGUSTA SURESH Not Available Start: 02-09-2024 Evaluation and management of inpatient DENIZ ROLDAN [facility] Start: 02-08-2024 Evaluation and management of inpatient LE [facility] Start: 02-08-2024 Emergency department patient visit LE [facility] Start: 02-08-2024 Emergency department patient visit LE [facility] Start: 02-08-2024 End: 02-09-2024 Evaluation and management of inpatient STACEY DEB [facility] Start: 02-03-2024 End: 02-03-2024 ambulatory AUGUSTA SURESH Not Available Start: 01-28-2024 End: 01-28-2024 ambulatory AUGUSTA SURESH Not Available Start: 12-16-2023 End: 12-16-2023 ambulatory FLORECITA Aldo VILLA Not Available Start: 11-05-2023 End: 11-05-2023 ambulatory JEAN PIERRE KIM Not Available Start: 10-30-2023 End: 10-30-2023 ambulatory MEME B NUHA Not Available Start: 10-16-2023 End: 10-16-2023 ambulatory MEME B NUHA Not Available Start: 10-08-2023 End: 10-08-2023 ambulatory MEME B NUHA Not Available Start: 09-26-2023 End: 09-26-2023 ambulatory MARQUIS ANG Not Available Start: 09-24-2023 End: 09-24-2023 [...] [facility] Start: 09-04-2023 End: 09-04-2023 ambulatory Meme B Nuha PT Work Phone: [facility] Comment on above: Sacroiliac joint scooter n (Primary Dx); Lumbar paraspinal muscle spasm; Lumbar radiculopathy, chronic; Idiopathic scoliosis of thoracolumbar region Start: 09-01-2023 Bamboo flowsheet Meme Jalyn Breen P T Work Phone: [facility] Start: 09-01-2023 Bamboo flowsheet Meme Jalyn Breen P T Work Phone: [facility] Start: 09-01-2023 End: 09-01-2023 ambulatory Meme Gunderson Nuha PT Work Phone: [facility] Comment on above: Lumbar paraspinal mu scle spasm (Primary Dx); Sacroiliac joint pain; Lumbar radiculopathy, chronic; Idiopathic scoliosis of thoracolumbar region Start: 08-22-2023 End: 08-22-2023 Office outpatient visit 25 minutes Marquis WALTON Work Phone: [facility] Comment on above: Acute left-sided low back pain without sciatica (Primary Dx); Sacroiliac joint pain; Other idiopathic scoliosis, thoracolumbar region Start: 08-22-2023 End: 08-22-2023 ambulatory MARQUIS ANG Not Available Start: 08-21-2023 End: 08-21-2023 ambulatory AUGUSTA SURESH Not Available Start: 07-17-2023 End: 07-17-2023 ambulatory CRISTOFER OLIVA Not Available Start: 07-02-2023 Office outpatient vi sit 25 minutes Meme Gong [facility] Start: 07-02-2023 Patient encounter procedure Marquis WALTON Work Phone: [facility] Start: 07-02-2023 End: 07-02-2023 ambulatory Meme Mckeon [employer] Other Start: 06-24-2023 End: 06-24-2023 ambulatory FLORECITA VILLA Not Available Start: 02-24-2023 End: 02-24-2023 ambulatory Jean Pierre Kim Facility:[facility] Start: 02-24-2023 End: 02-24-2023 ambulatory DO Jean Pierre Kim Work Phone: [facility] Work Phone: Start: 02-24-2023 End: 02-24-2023 Discharged Recurring DO Jea nPierre Kim Work Phone: [facility] [place] Work Phone: Start: 01-03-2023 End: 01-03-2023 ambulatory Jean Pierre Kim Facility:[facility] Start: 01-03-2023 End: 01-03-2023 ambulatory DO Jean Pierre Kim Work Phone: [facility] Work Phone: Start: 01-03-2023 End: 01-03-2023 Patient encounter procedure DO Jean Pierre Kim Work Phone: [facility] Work Phone: Start: 01-03-[address] Jairo Downs [facility] [id number] Start: 06-27-2022 Office outpatient vi sit 15 minutes [facility] Start: 06-27-2022 End: 06-27-2022 ambulatory DO Jean Pierre Kim Work Phone: [facility] [employer] Other Start: 06-27-2022 End: 06-27-2022 Patient encounter procedure DO Jean Pierre Kim Work Phone: [facility] Start: 06-18-2022 End: 06-19-[address] JEAN PIERRE KIM Facility: Start: 05-09-2022 End: 05-09-2022 ambulatory DO Jean Pierre Kim Work Phone: [facility] Work Phone: Start: 05-09-2022 End: 05-09-2022 Discharged Recurring DO Jean Pierre Kim Work Phone: [facility] [place] Start: 03-11-2022 End: 03-11-2022 ambulatory Le [facility] Other [employer] Other Start: 03-11-2022 Encounter for other preprocedural examination Le Olexa [facility] [place] [facility] Start: 03-11-2022 Office outpatient vi sit 25 minutes Le Olexa [facility] [place] [facility] Start: 02-23-2022 End: 02-23-2022 Patient encounter procedure DO Jean Pierre Kim Work Phone: [facility] [place] Start: 02-19-2022 End: 02-19-2022 ambulatory Le Olexa Other [employer] Other Start: 02-19-2022 Office outpatient vi sit 25 minutes Le [facility] [place] [facility] Start: 02-19-2022 End: 02-19-2022 Patient encounter procedure DO Jean Pierre Kim Work Phone: [facility] [place] [facility] Start: 02-08-2022 End: 02-09-[address] JEAN PIERRE KIM Facility:[facility] Start: 02-01-2022 End: 02-01-[address] JEAN PIERRE KIM Facility:[facility] Start: 10-19-2021 End: 10-20-[address] JEAN PIERRE KIM Facility:[facility] Start: 08-09-2021 End: 08-10-[address] JEAN PIERRE KIM Facility:[facility] Procedures Date Procedure Procedure Detail Performing Clinician Start: 07-17-2023 Mammography Marquis WALTON Work Phone: Start: 06-27-2022 Plain X-ray of right shoulder DO Jean Pierre Kim Work Phone: Start: 02-23-2022 MRI of right shoulder DO Jean Pierre Kim Work Phone: Start: 02-19-2022 Plain X-ray of right clavicle DO Jean Pierre Kim Work Phone: Start: 12-10-2021 Colonoscopy Marquis WALTON Work Phone: Start: 09-04-2020 History of thyroidectomy History of thyroidectomy Marquis WALTON Work Phone: Plan of Treatment Date Care Activity Detail Author Start: 12-11-2031 Screening for malign ant neoplasm of colon [facility] Start: 07-17-2024 Screening for malign ant neoplasm of breast Mammogram [facility] Start: 07-02-2024 Medicare Annual Wellness (AWV) Medicare Annual Wellness (AWV) [facility] Start: 12-16-2023 End: 12-16-2023 Patient encounter procedure 12/16/2023 10:20 AM EDT Office Visit [facility] [address] [place] [id number] Florecita Villa MD [address] [place] [address] [facility] Start: 11-05-2023 End: 11-05-2023 Patient encounter procedure 11/05/2023 9:45 AM EDT Office Visit [facility] [address] [place] [id number] Jean Pierre Kim DO [address] [place] [address] [facility] Start: 09-26-2023 End: 09-26-2023 Patient encounter procedure 09/26/2023 10:30 AM EST Office Visit [facility] [address] [place] [phone] Marquis Ang PA [address] [place] [address] [facility] Start: 09-24-2023 End: 09-24-2023 ambulatory 09/24/2023 11:30 AM EST [facility] [address] [facility] [facility] [place] [place] [id number] Meme Breen, PT [address] [place] [id number] [facility] Start: 09-22-2023 End: 09-22-2023 ambulatory 09/22/2023 11:15 AM EST Treatment [facility] [address] [place] [address] Meme Breen, PT [address] [place] [address] [facility] Start: 09-19-2023 End: 09-19-2023 ambulatory 09/19/2023 11:15 AM EST Treatment [facility] [address] [place] [address] Meme Breen, PT [address] [place] [address] [facility] Start: 09-15-2023 End: 09-15-2023 ambulatory 09/15/2023 11:45 AM EST Treatment [facility] [address] [place] [address] Meme Breen, PT [address] [place] [address] [facility] Start: 09-12-2023 End: 09-12-2023 ambulatory 09/12/2023 11:15 AM EST Treatment [facility] [address] [place] [address] Meme Breen, PT [address] [place] [address] [facility] Start: 09-10-2023 End: 09-10-2023 ambulatory 09/10/2023 10:00 AM EST Treatment [facility] [address] [place] [address] Meme Breen, PT [address] [place] [address] [facility] Start: 09-04-2023 End: 09-04-2023 ambulatory [facility] Comment on above: Sacroiliac joint scooter n (Primary Dx); Lumbar paraspinal muscle spasm; Lumbar radiculopathy, chronic; Idiopathic scoliosis of thoracolumbar region Start: 09-01-2023 End: 09-01-2023 ambulatory 09/01/2023 2:00 PM EST Evaluation [facility] [address] [phone] Meme Breen, PT [address] [place] [address] Lumbar paraspinal muscle spasm (Primary Dx); Lumbar radiculopathy, chronic; Idiopathic scoliosis of thoracolumbar region; Acute left-sided low back pain without sciatica; Sacroiliac joint pain [facility] Comment on above: Lumbar paraspinal mu scle spasm (Primary Dx); Lumbar radiculopathy, chronic; Idiopathic scoliosis of thoracolumbar region; Acute left-sided low back pain without sciatica; Sacroiliac joint pain Start: 11-28-2022 Glaucoma screening Diabetes: R etinopathy Screening [facility] Start: 09-17-2022 Hemoglobin A1c measurement Diabetes: Hemoglobin A1C [facility] Start: 08-09-2022 Urine screening for protein Diabetes: Urine Protein Screening [facility] Start: 03-21-2022 Registered Recurring Registered Recu rring [facility] [place] Start: 02-23-2022 MRI of right shoulder MR shoulder RT wo con [facility] Start: 02-23-2022 End: 02-23-2022 Patient encounter procedure Departed Clinical [facility] [place] Start: 12-28-2019 Pneumococcal Vaccine : 65+ Years (3 - PPSV23 or PCV20) Pneumococcal Vaccine: 65+ Years (3 - PPSV23 or PCV20) [facility] Start: 12-28-2019 Pneumococcal Vaccine : 65+ Years (3 of 3 - PPSV23 or PCV20) Pneumococcal Vaccine: 65+ Years (3 of 3 - PPSV23 or PCV20) [facility] Start: 1950 Screening for malign ant neoplasm of colon [facility] XR Hip - left 3 Views XR hip lef t 2 or 3 views Imaging Routine Sacroiliac joint pain 08/22/2023 11:02 AM EST [facility] [employer] Work Phone: XR Lumbar spine View s W flexion and W extension XR lumbar spine 4+ views w flexion extension Imaging Routine Acute left-sided low back pain without sciatica 08/22/2023 11:02 AM EST [facility] Immunizations Immunization Date Immunization Notes Care Provider [facility] 05-16-2023 zoster vaccine recombinant Marquis WALTON Work Phone: [facility] 04-11-2023 Influenza, Seasonal, Quadrivalent, Adjuvanted Marquis WALTON Work Phone: [facility] 03-12-2023 zoster vaccine recombinant Marquis WALTON Work Phone: [facility] 06-13-2021 COVID-19 mRNA, Comir sam (Pfizer) DO Jean Pierre Kim Work Phone: [facility] 10-19-2020 Do not use COVID-19 Pfizer 2 dose Le Olexa Other [facility] 09-29-2020 Do not use COVID-19 Pfizer 2 dose Le Olexa Other [facility] 01-19-2018 pneumococcal conjuga te vaccine, 13 valent Marquis WALTON Work Phone: [facility] 11-07-2016 tetanus toxoid, redu murray diphtheria toxoid, and acellular pertussis vaccine, adsorbed Marquis WALTON Work Phone: [facility] Work Phone: 12-27-2014 pneumococcal polysaccharide vaccine, 23 valent Marquis WALTON Work Phone: [facility] Payers Date Payer Category Payer Self-pay [id number] 2022 Private Health Insurance [employer] [id number] 2022-Present [address] [address] [place] [address] Supplement [id number] 2017 Medicare MEDICARE MEDICAR E PART B [id number] 2017-[place] [address] Medicare [id number] 1959 Medicare [id number] 2.16.840.1.954282.19 1959 Private Health Insurance [id number] 2.16.840.1.767640.19 1959 Private Health Insurance [id number] 1959 Unknown 1952 Unknown [id number] 2.16.840.1.147999.3.579.2. 593 1952 Unknown [id number] 2.16.840.1.365713.3.579.2. 593 1952 Unknown [id number] 2.16.840.1.209143.3.579.2. 593 1952 Unknown [id number] 2.16.840.1.870401.3.579.2. 593 1952 Unknown [id number] 2.16.840.1.677951.3.579.2. 593 1952 Unknown [id number] 2.16.840.1.155139.3.579.2. 356 1952 Unknown [id number] 2.16.840.1.032976.3.579.2. 1259 1952 Unknown [id number] 2.16.840.1.320754.3.579.2. 1259 1952 Unknown [id number] 2.16.840.1.995755.3.579.2. 1259 1952 Unknown [id number] 2.16.840.1.143841.3.579.2. 1258 1952 Unknown [id number] 2.16.840.1.510300.3.579.2. 1258 1952 Unknown [id number] 2.16.840.1.240362.3.579.2. 1258 1952 Unknown [id number] 2.16.840.1.545475.3.579.2. 1258 1952 Unknown [id number] 2.16.840.1.268619.3.579.2. 1258 1952 Unknown [id number] 2.16.840.1.282549.3.579.2. 1258 1952 Unknown [id number] 2.16.840.1.647264.3.579.2. 1258 1952 Unknown [id number] 2.16.840.1.496443.3.579.2. 1258 1952 Unknown [id number] 2.16.840.1.524076.3.579.2. 1258 1952 Unknown [id number] 2.16.840.1.589760.3.579.2. 1258 1952 Unknown [id number] 2.16.840.1.930214.3.579.2. 1258 1952 Unknown [id number] 2.16.840.1.836990.3.579.2. 1258 1952 Unknown [id number] 2.16.840.1.624124.3.579.2. 1258 1952 Unknown [id number] 2.16.840.1.744766.3.579.2. 1258 1952 Unknown [id number] 2.16.840.1.403811.3.579.2. 1258 1952 Unknown [id number] 2.16.840.1.269202.3.579.2. 1258 1952 Unknown [id number] 2.16.840.1.898603.3.579.2. 1258 1952 Unknown [id number] 2.16.840.1.661367.3.579.2. 9 1952 Unknown [id number] 2.16.840.1.495960.3.579.2. 1258 1952 Unknown [id number] 2.16.840.1.056851.3.579.2. 1258 1952 Unknown [id number] 2.16.840.1.928605.3.579.2. 1258 1952 Unknown [id number] 2.16.840.1.258413.3.579.2. 1258 1952 Unknown [id number] 2.16.840.1.930352.3.579.2. 1258 Unknown [facility] [id number] Unknown [id number] 2.16.840.1.349242.3.579.2. 531 Unknown [id number] 2.16.840.1.696409.3.579.2. 531 Unknown [id number] 2.16.840.1.533181.3.579.2. 531 Social History Date Type Detail Facility Unknown if ever smoked [employer] Other Start: 07-02-2023 End: 08-22-2023 Sex Assigned At [facility] Start: 12-10-2021 End: 02-26-2023 Tobacco smoking status [facility] Ex-smoker (finding) [facility] Start: 1950 Sex Assigned At Female F [facility] Start: 07-21-1969 End: 07-21-1995 History of tobacco use Current smoker [facility] Start: 07-21-1969 End: 07-21-1995 History of tobacco use Cigarette Smoker [facility] Start: 02-26-2023 End: 07-02-2023 Cigarettes smoked current (pack per day) - Reported 1 [facility] History of tobacco use Passive smoker [...] strip b y finger stick once daily [id number] Start: 12-19-2022 Clinical Notes 11-18-2009 to 02-25-2024 Meme Breen PT - 09/04/2023 11:15 AM ISABELLE Lozano - 08/22/2023 10:30 AM EST Note Date & Type Note Facility 02-25-2024 Note Orthopedic Surgery 02/09/2024 I&d, Pinning Right Long Finger - Right, Repair, Extensor Tendon, Finger - Right, and Repair, Ligament, Ulnar Collateral - Right Christina Woodward comes in for a post-operative visit after having a right long finger PIP reduction and pinning with soft tissue repairs done on 02/09/2024. Today she is doing well and has no unexpected complaints. Her only problem is that she is having a little more pain than what she expected. It seems like it has shooting pains and may be nerve related. Physical Exam: The incision site is healing well. There is no erythema, drainage or signs of infection. There is some mild redness around the lateral pin. Tenderness is mild and localized to the surgical site. Sensation is present to light touch. There is normal color and capillary refill in the digit. Range of motion is appropriate for this time. Assessment: Christina Woodward is a 73 y.o. year old female with Finger dislocation, initial encounter Plan: The sutures were removed in the clinic today. I instructed the patient on how to do scar massage, and then apply lotion to the incisional site. I talked to her about what to look for for worsening of pin tract infection. We will see her back in the clinic 2 weeks with x-rays and plan on pulling the pins. I did give her a prescription for Keflex just to be safe.. [facility] 02-09-2024 Note Clinician attempted to provide JOSIAH brief intervention regarding alcohol use. Pt denies drinking regularly- states she does not drink weekly or even monthly. Pt reports she had a drink last weekend and could not remember the last time she drank prior to that. Per pt report, she appears to be drinking within recommended health limits. No intervention needed at this time. 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 No Screened by [facility]. Per SS consult order for HHC/wound care, sent referral to [facility] await reply. Per Audit C gave pt chemical dependency referral list, [facility] treatment resources and rethinking drinking resource. Await reply from [facility]. Pt has DC orders. [facility] reported pt is teachable for her wound care. Pt was Dc'd yesterday to home. Received call from [facility] awaiting AVS/DC order. Faxed AVS to [facility] this morning. They will arrange start of care. [facility] 02-09-2024 Note Patient: Christina aguila Procedure Summary Date: 02/09/24 Room / Location: [facility] OR [address] [place] [address] [facility]ISC OR Anesthesia Start: 1328 Anesthesia Stop: 1429 Procedures: I&D, PINNING RIGHT LONG FINGER (Right: Hand) REPAIR, EXTENSOR TENDON, FINGER (Right: Middle Finger) REPAIR, LIGAMENT, ULNAR COLLATERAL (Right: Middle Finger) Diagnosis: Open dislocation of proximal interphalangeal (PIP) joint of right middle finger (Open dislocation of proximal interphalangeal (PIP) joint of right middle finger [S63.282A, S61.202A]) Surgeons: Deniz Roldan MD Responsible Provider: Thompson Ospina MD Anesthesia Type: MAC ASA Status: 2 Anesthesia Type: MAC Vitals Value Taken Time BP 160/62 02/09/24 1441 Temp 36.5 ???C (97.7 ???F) 02/09/24 1426 Pulse 79 02/09/24 1441 Resp 16 02/09/24 1441 SpO2 95 % 02/09/24 1441 Anesthesia Post Evaluation Patient location during evaluation: PACU Patient participation: complete - patient participated Level of consciousness: awake Pain score: 1 Pain management: adequate Airway patency: patent Cardiovascular status: acceptable Respiratory status: acceptable Patient is hemodynamically stable and is able to be discharged from PACU per anesthesia protocol. No notable events documented. [facility] 02-09-2024 Note Pt off floor. Clinic sabi will attempt JOSIAH intervention at another time [facility] 02-09-2024 Note Patient: Christina aguila Procedure Information Date/Time: 02/09/24 1530 Procedure: I&D HAND/WRIST (Right: Hand) Location: [facility] OR [address] [place] [address] OR Surgeons: Deniz Roldan MD Relevant Problems Anesthesia (within normal limits) Cardio Denies chest pain/SOB. No previous cardiac interventions. Endo DM oral hypoglycemics, FBS 96 mg/dl /Renal Cr 0.6 Neuro/Psych (within normal limits) Pulmonary (within normal limits) Clinical information reviewed: Tobacco Allergies Meds Med Hx Surg Hx OB Status Fam Hx Soc Hx Physical Exam Airway Mallampati: II TM distance: >3 FB Neck ROM: full Cardiovascular - normal exam Dental - normal exam Pulmonary - normal exam Abdominal Anesthesia Plan ASA 2 MAC The patient is not a current smoker. Patient was not previously instructed to abstain from smoking on day of procedure. Patient did not smoke on day of procedure. intravenous induction Anesthetic plan and risks discussed with patient. Plan discussed with CAA. Additional Equipment Requests [facility] 02-09-2024 Note 02/09/24 0952 Admission Assessment Questions Verify insurance with patient Yes Do you understand medical disease or what brought you into the hospital? Yes Who is your current PCP? No PCP listed. Nicholas Mcgee [facility] updated in epic Can I schedule a follow up appointment for you at the time of discharge? Yes Do you understand why you are taking your current medications? Yes Are you taking your medications as prescribed? Yes Did patient provide teach back? Yes Pharmacy Bedside Delivery Status Interested Does the patient have a lining caser assigned to them through their insurance? No Living Arrangement (Current/Prior to Hospitalization) Private residence Does the patient have history of HHC or SNF? No Assistive Device Not applicable Patient's goal for discharge return home with [facility] Was patient reminded that goal for discharge is 11am? Yes Does the patient have transportation at discharge? Yes () Type of Residence Private residence Is PT/OT appropriate? Yes Is PT/OT ordered? Yes Is SW consult appropriate? Yes Do you understand the benefits of MyChart? Yes Were you able to send link and activate [employer]? MyChart already active [facility] 02-09-2024 Note Physical Therapy Name: Christina Woodward Date of : 1950 Today's Date: 02/09/24 Per pt and nursing staff, pt has been up ambulating in her room throughout LOS without any difficulty and without use of an assistive device. Educated pt on purpose of acute physical therapy evaluation for assessment of balance, functional mobility, safety, endurance, etc. Pt denies need for acute skilled PT services at this time. Informed pt that PT can be re-ordered throughout LOS should needs arise. Pt verbalized understanding. Discontinuing skilled PT services at this time. Check No Charge Time attempted: 852 Katie Hardwick, PT [facility] 02-09-2024 Note Attestation signed by Deniz Roldan MD at 02/09/2024 8:58 AM I did not personally examine the patient. I discussed the case with the resident and agree with the plan. Orthopedic Surgery Procedure Note: Bedside Irrigation and Debridement Procedure performed: bedside incision and drainage of open dislocation of right long finger PIP joint Informed consent obtained from patient for bedside irrigation and drainage of the open dislocation. Proper site was confirmed. The area surrounding the abscess was first sterilely prepped with betadine. The surrounding area was subsequently injected with 10mL Lidocaine 1% using a 18 needle. Once pain control was adequate the area, washout was performed using saline and iodine solution. A combination of 3-0 and 5-0 prolene horizontal mattress and simple sutures were applied for loose closure of the wound. Dry dressing was then applied. Patient tolerated procedure well, no change in motor, sensory, or vascular exam after procedure. Toma Grover MD Orthopedic Surgery, PGY-1 [facility] 02-09-2024 Note Attestation signed by Deniz Roldan MD at 02/09/2024 10:36 AM I did not personally examine the patient. I discussed the case with the resident and agree with the plan. Orthopaedic Surgery Orthopaedic Surgery Progress Note Date: 02/09/2024 Surgery: 02/09/2024 - I&D HAND/WRIST (R) SUBJECTIVE: NAEON, pain controlled, denies CP/SOB. Patient is overall doing well this morning. She denies any new complaints regarding her right long finger. OBJECTIVE BP 142/72 (BP Location: Left arm, Patient Position: Lying) Pulse 71 Temp 36.9 ???C (98.4 ???F) (Oral) Resp 16 Ht 1.676 m (5' 6 ) Wt 74.4 kg (164 lb 0.4 oz) LMP (LMP Unknown) SpO2 96% BMI 26.47 kg/m??? General: No acute distress, comfortable Respiratory: Unlabored breathing with normal rate, no cough Cardiovascular: Warm well perfused extremities Psych: Appropriate mood behavior MSK: RUE - Inspection: Patient is currently in aluminafoam immobilization to the right long finger, patient has an open laceration that extends from the volar side to the dorsal side of her proximal third phalanx which has been loosley closed; - ROM: Immobilization present beyond the MP of the Right long finger, able to flex and extend at the MP - Compartments are soft and compressible - Sensation: sensation intact to distal portion of the right long finger - Motor function intact in median, ulnar, radial, AIN, PIN - Hand is WWP with BCR x 5, 2+ RP Labs Lab Results Component Value Date WBC 9.27 02/08/2024 HGB 12.9 02/08/2024 HCT 39.8 02/08/2024 MCV 96.4 02/08/2024 PLT 342 02/08/2024 Lab Results Component Value Date CALCIUM 8.5 (L) 02/08/2024 NA 139 02/08/2024 K 3.8 02/08/2024 CO2 25 02/08/2024 CL 106 02/08/2024 BUN 10 02/08/2024 CREATININE 0.60 02/08/2024 Lab Results Component Value Date INR 0.98 02/08/2024 Imaging: XR chest 1 view Result Date: 02/08/2024 FINDINGS/IMPRESSION: No acute cardiopulmonary process. No pneumothorax or pleural effusion. Nonenlarged heart. Electronically signed: Fish Caballero MD. XR hand 3+ views right Result Date: 02/08/2024 FINDINGS/IMPRESSION: Radially dislocated third PIP with apex medial annulation. No sizable fracture fragment seen. Soft tissue swelling. Electronically signed: Fish Caballero MD. CT cervical spine wo IV contrast Result Date: 02/08/2024 Mild to moderate lower cervical spondylosis with no evidence of acute bony pathology or malalignment. Electronically signed: Mary Martinez MD. CT head wo IV contrast Result Date: 02/08/2024 Age-appropriate mild senescent atrophic changes with no evidence of acute intracranial bleeding or pathology. Electronically signed: Mary Martinez MD. No MRI results found for the past 24 hours ASSESSMENT: Christina Woodward is a 73 y.o. female with an open dislocation of the right long finger PIP joint s/p bedside washout and reduction. PLAN -After speaking at length with the patient and her regarding conservative and operative options including risks/benefits/alternatives/burt cations, the patient is agreeable to surgical intervention. -Admit to orthopaedic surgery -Plan for OR today for I&D of right long PIP, open reduction and pinning, and possible long finger extensor tendon repair, informed consent signed -Diet: NPO -Weight bearing & activity status: NWB of RUE -Pain control, ice, and elevation of extremity -Antibiotics: Periop ancef -PT/OT: postop -Remainder of care pending OR findings Alfredo Daniel MD Orthopaedic Surgery, PGY-2 Ortho Pager [phone] 02/09/24 6:57 AM I am available via [employer] chat 6a-6p. May contact the on-call resident with any concerns via the Orthopaedic pager at any time. [facility] 02-08-2024 Note HPI No chief complaint on file. Initial evaluation completed by Dr. Herzog at 1845. Christina Woodward is a 73 y.o. y/o female presenting to the ED with c/o open fracture of right middle finger. Pt is a transfer from [facility] for an orthopedic consult concerned for an open fracture with tendon laceration on the right hand. History provided by: Patient No data recorded Patient History No past medical history on file. No past surgical history on file. No family history on file. Social History Tobacco Use ??? Smoking status: Not on file ??? Smokeless tobacco: Not on file Substance Use Topics ??? Alcohol use: Not on file ??? Drug use: Not on file Review of Systems Review of Systems Musculoskeletal: Open fracture Skin: Positive for wound. Physical Exam ED Triage Vitals [02/08/24 1812] Temp Heart Rate Resp BP 36.6 ???C (97.8 ???F) 80 16 167/88 SpO2 Temp Source Heart Rate Source Patient Position 96 % Oral Monitor Sitting BP Location FiO2 (%) Left arm -- Physical Exam Vitals and nursing note reviewed. HENT: Head: Normocephalic and atraumatic. Eyes: Conjunctiva/sclera: Conjunctivae normal. Pupils: Pupils are equal, round, and reactive to light. Cardiovascular: Rate and Rhythm: Normal rate and regular rhythm. Pulmonary: Effort: Pulmonary effort is normal. Breath sounds: Normal breath sounds. Abdominal: General: Abdomen is flat. There is no distension. Musculoskeletal: Cervical back: Normal range of motion and neck supple. Comments: Open fracture of the right middle finger at the proximal joint with loss of extensor function. Skin: General: Skin is warm and dry. Neurological: General: No focal deficit present. Mental Status: She is alert and oriented to person, place, and time. Procedures ED Course & MDM Diagnoses as of 02/09/24 1739 Dislocation of finger, initial encounter Medical Decision Making I, Fabrizio nichols, documented on behalf of Dr. Herzog. Chief complaint open fracture to right middle finger. Differential Diagnosis includes but is not limited to extensor tendon laceration, open fracture, dislocation. Plan of Care: XR hand 3+ views right, CBC and differential, Vitamin D 25 hydroxy, CBC auto differential, Type and screen, Inpatient Consult to Orthopaedic Surgery, morphine injection 4 mg (has no administration in time range) Imaging reviewed by Dr. Le Herzog, . Radiology reports noted and agreed with as listed below: XR hand 3+ views right Final Result FINDINGS/IMPRESSION: Radially dislocated third PIP with apex medial annulation. No sizable fracture fragment seen. Soft tissue swelling. Electronically signed: Fish Caballero MD. XR chest 1 view Final Result FINDINGS/IMPRESSION: No acute cardiopulmonary process. No pneumothorax or pleural effusion. Nonenlarged heart. Electronically signed: Fish Caballero MD. CT head wo IV contrast Final Result Age-appropriate mild senescent atrophic changes with no evidence of acute intracranial bleeding or pathology. Electronically signed: Mary Martinez MD. CT cervical spine wo IV contrast Final Result Mild to moderate lower cervical spondylosis with no evidence of acute bony pathology or malalignment. Electronically signed: Mary Martinez MD. On re-evaluation, patient is resting comfortably. Results were discussed. Based on the diagnostic results and physical exam, pt will be admitted. RESULTS Labs: Labs Reviewed VITAMIN D 25 HYDROXY - Normal Result Value Vit D, 25-Hydroxy 49.9 CBC WITH AUTO DIFFERENTIAL - Normal Auto WBC 9.27 RBC 4.13 Hemoglobin 12.9 Hematocrit 39.8 MCV 96.4 MCH 31.2 MCHC 32.4 RDW 13.8 Neutrophils Relative 58.8 Lymphocytes Relative 29.6 Monocytes Relative 8.3 Eosinophils Relative 2.7 Basophils Relative 0.4 Neutrophils Absolute 5.45 Lymphocytes Absolute 2.74 Monocytes Absolute 0.77 Eosinophils Absolute 0.25 Basophils Absolute 0.04 Platelets 342 nRBC % 0.0 Immature Granulocytes Relative 0.2 Immature Granulocytes Absolute 0.02 CBC AND DIFFERENTIAL Narrative: The following orders were created for panel order CBC and differential. Procedure Abnormality Status --------- ------ CBC auto differential[[id number]] Normal Final result Please view results for these tests on the individual orders. TYPE AND SCREEN ABO Grouping O Rh Type POS Ab Scrn NEG BASIC METABOLIC PANEL PROTIME-INR Radiology: XR transfer of outside films Final Result XR hand 3+ views right Final Result FINDINGS/IMPRESSION: Radially dislocated third PIP with apex medial annulation. No sizable fracture fragment seen. Soft tissue swelling. Electronically signed: Fish Caballero MD. XR chest 1 view Final Result FINDINGS/IMPRESSION: No acute cardiopulmonary process. No pneumothorax or pleural effu (more content not included)... [facility] 09-04-2023 History of Present illness Narrative Physical Therapy Physical Therapy Evaluation Visit Patient Name: Christina Woodward Today's Date: 09/04/2023 Encounter Diagnoses Name Primary? 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 Physician Signature: Date: documented in this encounter [facility] 08-22-2023 History of Present illness Narrative Images from the original note were not included. HISTORY OF PRESENT ILLNESS: EST PT Christina Woodward is an 72 y.o. @ female. EST PT WITH NEW C/O LBP/UPPER BACK FOR YRS- PT STATES SHE HAS SCOLIOSIS AND FLAT FEET THAT SHE HAS BEEN DEALING WITH HER ENTIRE LIFE- DR KIM/JOSÉ ALONZO TX; XRAY LUMBAR SPINE/MUSCLE RELAXERS XRAY LUMBAR SPINE WITH FLEX/EXT/LT HIP 08/22/23/CHANGE XRAY LUMBAR SPINE 02/07/23 CHANGE NO MRI CREDIT RISK MODELER FOR YRS NO CORTISONE INJ NO MDP/PREDNISONE [...] evaluation. ISABELLE Phelps documented in this encounter [facility] 07-02-2023 Evaluation note Encounter Date Diagnosis Assessment [...] sleepiness, or poor response to treatment. . [employer] Other 12-08-2022 Evaluation note* Encounter Date Diagnosis [...] pain of right shoulder (ICD-10 - M25.511) [employer] Other 09-13-2022 NoteHISTORY: Bone density screening. COMPARISON: [...] and signed by Abhi Jefferson on 04/02/2022 [id number]* Encounter Date Diagnosis Assessment Notes [...] S43.003A) Feb, Pre-op exam (ICD-10 - Z01.818) [employer] Other 08-02-2022 Evaluation note* Encounter Date Diagnosis [...] plan further treatment options and potential surgey. [employer] Other 05-06-2022 NoteHISTORY: Dizziness, headaches PROCEDURE: [facility] VCT 64. Without IV contrast, images of [...] signed by Donald Jeter on 11/23/2021 [id number] [facility] [id number] History general Narrative - Reported* Type Description Date Medical History type II diabetes Medical History no thyroid Surgical History left wrist 11/2009 Surgical History knee arthroscopy 2006 Surgical History hysterectomy 07/2012 Surgical History thyroidectomy, complete Hospitalization History see above [employer] Other 05-01-2010 History general Narrative - Reported* Type Description Date Medical History type II diabetes Medical History no thyroid Medical History Obstructive sleep apnea Medical History GERD Surgical History left wrist 11/2009 Surgical History knee arthroscopy 2006 Surgical History hysterectomy 07/2012 Surgical History thyroidectomy, complete Hospitalization History see above [employer] Other Evaluation noteNo assessment information available [facility] Work Phone: Evaluation note* Diagnosis Acute left-sided low back pain without sciatica- Primary Sacroiliac joint pain Disorders of sacrum Other idiopathic scoliosis, thoracolumbar region documented in this encounter [facility] HealthcareEvaluation note* Diagnosis Lumbar paraspinal muscle spasm- Primary Other symptoms referable to back Sacroiliac joint pain Disorders of sacrum Lumbar radiculopathy, chronic Idiopathic scoliosis of thoracolumbar region documented in this encounter [facility] HealthcareEvaluation note* Diagnosis Sacroiliac joint pain- Primary Disorders of sacrum Lumbar paraspinal muscle spasm Other symptoms referable to back Lumbar radiculopathy, chronic Idiopathic scoliosis of thoracolumbar region documented in this encounter [facility] HealthcareReason for referral (narrative)* Consultation (Routine) - Authorized Specialty Diagnoses / Procedures Referred By Contac t Referred To Contact Physical Therapy Diagnoses Acute left-sided low back pain without sciatica Sacroiliac joint pain Procedures TX OFFICE/OUTPATIENT [facility] 60 MINUTES Marquis Ang PA [address] [address] Meme Breen, PT [address] [place] [address] Referral ID Status Reason Start Date Expiration Date Visits Requested Visits Authorized [id number] Authorized Consult and Treat 08/22/2023 02/18/2024 10 10 * Consultation (Routine) - Pending Review Specialty Diagnoses / Procedures Referred By Contac t Referred To Contact Pain Medicine Diagnoses Acute left-sided low back pain without sciatica Procedures TX OFFICE/OUTPATIENT [facility] 60 MINUTES Marquis Ang PA [address] [facility] [address] [place] [address] Roxane Rockwell MD [address] [facility], [address] [place] [address] Referral ID Status Reason Start Date Expiration Date Visits Requested Visits Authorized [id number] Pending Review Specialty Services Required 08/22/2023 02/18/2024 1 1 Scheduling Instructions Referral to Dr. Coburn @ [facility]- Possible Lt SI inj; please call [...] pain without sciatica Sacroiliac joint pain Procedures TX OFFICE/OUTPATIENT [facility] 60 MINUTES Marquis Ang, ISABELLE [address] [place] [address] Meme Breen, PT [address] [place] [address] Referral ID Status Reason Start Date Expiration Date Visits Requested Visits Authorized [id number] Authorized Consult and Treat 08/22/2023 02/18/2024 30 30 Care Teams (unrecognized sec tion and content) Team Status: Inactive Member Role Status Dates Jean Pierre Kim DO Primary Care Provider Active Le Lma MD Attending Provider Active Team Status: Active Member Role Status Dates Jean Pierre Kim DO Primary Care Provider Active Le Lam MD Attending Provider Active Team Status: Active Member Role Status Dates Jean Pierre Kim DO Primary Care Provider Active Team Status: Inactive Member Role Status Dates Jean Pierre Kim DO Primary Care Provider Active ANGEL Tejeda Attending Provider Acti ve Team Status: Inactive Member Role Status Dates Jean Pierre Kim DO Primary Care Provider Active José Alonzo PA-C Attending Provider Active Bar Host Relationship Specialty Start Date End Date Jean Pierre Kim DO [address] [place] [address] PCP - ACO Reach 12/12/22 Jean Pierre Kim DO [address] [place] [address] PCP - General Internal Medicine 08/21/23 Meme Gong MD [address] [place] [address] Referring Physician Sleep Medicine 07/02/23 Bar Host Relationship Specialty Start Date End Date Jean Pierre Kim DO [address] [place] [address] PCP - ACO Reach 12/12/22 Jean Pierre Kim DO [address] [place] [address] PCP - General Internal Medicine 08/21/23 Meme Gong MD [address] [place] [address] Referring Physician Sleep Medicine 07/02/23 Bar Host Relationship Specialty Start Date End Date Jean Pierre Kim DO [address] [place] [address] PCP - ACO Reach 12/12/22 Jean Pierre Kim DO [address] [place] [address] PCP - General Internal Medicine 08/21/23 Meme Gong MD [address] [place] [address] Referring Physician Sleep Medicine 07/02/23 Bar Host Relationship Specialty Start Date End Date Jean Pierre Kim DO [address] [place] [address] PCP - ACO Reach 12/12/22 Jean Pierre Kim DO [address] [place] [address] PCP - General Internal Medicine 08/21/23 Meme Gong MD [address] [place] [address] Referring Physician Sleep Medicine 07/02/23 Goals (unrecognized section and content) Goals may be documented in a n alternate section INFORMATION SOURCE (unrecogn ized section and content) DATE CREATED AUTHOR 04/03/2022 [facility] dical Specialist DATE CREATED AUTHOR AUTHOR'S ORGANIZ ATION 06/22/2022 [facility] DATE CREATED AUTHOR AUTHOR'S ORGANIZ ATION 03/26/2023 [facility] DATE CREATED AUTHOR AUTHOR'S ORGANIZ ATION 07/26/2023 [facility] DATE CREATED AUTHOR AUTHOR'S ORGANIZ ATION 02/28/2024 [facility] DATE CREATED AUTHOR AUTHOR'S ORGANIZ ATION 03/08/2024 [facility] FOR RECORDS PERTAINING TO PATIENTS WHO ARE [...] BE BASED ON THE PRIMARY CLINICAL RECORDS. [facility]. provides no warranty or guarantee of the accuracy or completeness of information in this document.
[2024-03-11 19:45] LABS: Basophils Percent Auto 0.4 % (0.2-2.0); Eosinophils Absolute Auto 0.5 10^3/uL (0.0-0.7); Eosinophils Percent Auto 5.8 % (0.9-7.0); Hematocrit 43.8 % (36.0-48.0); Hemoglobin 14.4 g/dL (12.0-16.0); Immature Granulocytes Abs Auto 0.03 10^3/uL (0.00-0.03); Immature Granulocytes Pct Auto 0.3 % (0.0-0.5); Lymphocytes Absolute Auto 3.4 10^3/uL (1.2-3.8); Lymphocytes Percent Auto 37.6 % (20.5-60.0); Mean Corpuscular HGB Conc 32.9 g/dL (29.9-35.2); Mean Corpuscular Hemoglobin 31.3 pg (26.7-34.0); Mean Corpuscular Volume 95.2 fL (81.0-99.0); Mean Platelet Volume 8.8 fL (9.5-13.5); Monocytes Absolute Auto 0.7 10^3/uL (0.3-0.8); Monocytes Percent Auto 7.7 % (1.7-12.0); Neutrophils Absolute Auto 4.4 10^3/uL (1.4-6.5); Neutrophils Percent Auto 48.2 % (43.0-75.0); Platelet Count 362 10^3/uL (150-450); Red Cell Distribution Width 13.2 % (11.0-15.0); White Blood Count 9.1 10^3/uL (4.0-11.0)
[2024-03-11 19:56] LABS: Anion Gap 14.7; BUN Creatinine Ratio 19.8; Calcium 9.2 mg/dL (8.5-10.1); Carbon Dioxide 27.4 mmol/L (21.0-32.0); Chloride 100 mmol/L (98-107); Estimated GFR (African America 59 (>=60); Estimated GFR (Non-African Ame 48 (>=60); Glucose 109 mg/dL (74-106); Potassium 4.1 mmol/L (3.5-5.1); Sodium 138 mmol/L (136-145)
[2024-03-11 20:06] LABS: C Reactive Protein <0.50 mg/dL (<=0.50)
[2024-03-11 20:09] LABS: Erythrocyte Sedimentation Rate 22 mm/hr (<=30)
[2024-03-11] MEDS: HYDROCODONE/ACET 5-325 MG TABLET 2 TAB PO (20:31)
[2024-03-11] MEDS: CEPHALEXIN 500 MG CAPSULE PO (20:31)
== END 2024-03-11 20:43 | disposition home or self-care (01) ==
PROVIDERS: Physician Assistant; Emergency Provider Internal Medicine; PCP Internal Medicine
DX: M79.644 Pain in right finger(s) (principal)
CPT/HCPCS: 36415; 73140; 80048; 85025; 85652; 86140; 99284

== ENCOUNTER 2024-04-20 08:51 | Outpatient (OUT) | payer MEDICARE, SELFPAY ==
[2024-04-20 09:12] LABS: Basophils Percent Auto 0.6 % (0.2-2.0); Eosinophils Absolute Auto 0.6 10^3/uL (0.0-0.7); Eosinophils Percent Auto 9.1 % (0.9-7.0); Hematocrit 40.9 % (36.0-48.0); Hemoglobin 13.4 g/dL (12.0-16.0); Immature Granulocytes Abs Auto 0.02 10^3/uL (0.00-0.03); Immature Granulocytes Pct Auto 0.3 % (0.0-0.5); Lymphocytes Absolute Auto 2.8 10^3/uL (1.2-3.8); Lymphocytes Percent Auto 40.4 % (20.5-60.0); Mean Corpuscular HGB Conc 32.8 g/dL (29.9-35.2); Mean Corpuscular Hemoglobin 31.5 pg (26.7-34.0); Mean Platelet Volume 8.6 fL (9.5-13.5); Monocytes Absolute Auto 0.5 10^3/uL (0.3-0.8); Monocytes Percent Auto 7.7 % (1.7-12.0); Neutrophils Absolute Auto 2.9 10^3/uL (1.4-6.5); Neutrophils Percent Auto 41.9 % (43.0-75.0); Platelet Count 313 10^3/uL (150-450); Red Blood Count 4.26 10^6/uL (4.20-5.40); Red Cell Distribution Width 13.2 % (11.0-15.0)
--- OUTSIDE RECORDS SUMMARY | 2024-04-20 09:12 | XMS_ITS | CCD ---
Author Organization [facility] CliniSyor Care Team Providers Care Emotional Disabilities Teacher Name Role Phone Le Lam Unavailable DO Jean Pierre Kim Primary Care Provider MD Le Lam Attending Provider [phone] JULIO, DR MORAN Primary Care Unavailable JULIO, [...] DO Jean Pierre Kim Primary Care Provider [phone] MD Le Lam Attending Provider DO Jean Pierre Kim Primary Care Provider ANGEL Valladares Attending Provider Dr. Jario Downs Primary Care Unavailable DO Jean Pierre Kim Primary Care Provider RG Alonzo Attending Provider Meme Gong Unavailable [...] Jean Pierre Kim DO Primary Care Provider [phone] JULIO OLIVA Referring Unavailable AUGUSTA SURESH Attending Unavailable JULIO OLIVA Referring Unavailable ANG, MARQUIS Contreras Attending [...] Referring Unavailable JEAN PIERRE KIM Attending Unavailable ALLEN, FLORECITA Carlson Attending Unavailable PETBASILIA, FLORECITA Carlson Attending Unavailable AUGUSTA SURESH Attending Unavailable AUGUSTA SURESH Attending Unavailable JULIO OLIVA Attending Unavailable AUGUSTA SURESH Attending Unavailable AUGUSTA SURESH Attending Unavailable CARMELITA ANTONY Attending Unavailable DENIZ ROLDAN Referring Unavailable CARMELITA ANTONY Attending Unavailable SKIDENIZ Edmondson Referring Unavailable CARMELITA ANTONY Attending Unavailable DENIZ ROLDAN Referring Unavailable AUGUSTA SURESH Attending Unavailable AUGUSTA SURESH Attending Unavailable JEAN PIERRE KIM Attending Unavailable SKIE, DENIZ Attending Unavailable SKIE, DENIZ Attending Unavailable SKIE, DENIZ Attending Unavailable OSTEABHI Bhardwaj Attending Unavailable SKIE, DENIZ Referring Unavailable SKIE, DENIZ Referring Unavailable TEMOLE Referring Unavailable SKIE, DENIZ Referring Unavailable SKIE, DENIZ Referring Unavailable TEMOLE Referring Unavailable DIABSTACEY Referring Unavailable SKIE, DENIZ Admitting Unavailable DENIZ ROLDAN Attending Unavailable DENIZ ROLDAN Admitting Unavailable DENIZ ROLDAN Attending Unavailable LE PLASCENCIA Referring Unavailable LE PLASCENCIA Referring Unavailable ANDERSON FONSECA Attending Unavailable DENIZ ROLDAN Referring Unavailable YULI, DENIZ Attending Unavailable YULI, DENIZ Attending Unavailable Allergies Allergy Classification Reported Allergen(s) Allergy Type Date of Onset Reaction(s) Facility (6 sources) buPROPion Drug Allergy 03-20-2023 [facility] (1 source) buPROPion; Translations: [BUPROPION HCL] Drug Allergy 02-08-2024 [facility] Repository Medications Current Medications Medication [...] 180 tablet 3 08/11/2023 Active estrogens, conjugated (mcc) 0.625 mg/ml vaginal cream (2 sources) Estrogen [...] mg oral tablet (13 sources) Biguanide Start: 022 take 1 tablet by mouth at mealtime metFORMIN (Glucophage) 500 MG tablet Indications: Type 2 diabetes mellitus with diabetic neuropathic arthropathy, without long-term current use of insulin (CMS/HCC) Take 1 tablet (500 mg) by mouth in the morning. Take with meals. 180 tablet 3 07/02/2023 Active methocarbamol 750 mg oral tablet (4 sources) Muscle Relaxant Start: 022 take 1 tablet by mouth twice daily [...] Active Start: 12-10-2021 take 1 capsule by [facility] once daily Venlafaxine (Effexor Xr) 150 [...] 12-26-2022 Chronic Joint disorders and dislocations; trauma-related (8 sources) Unspecified subluxation of unspecified shoulder joint, initial encounter; Translations: [Unspecified dislocation of unspecified finger, initial encounter] Onset: 03-11-2022 Resolved: 03-11-2022 Episodic Open wounds of extremities (4 sources) Unspecified open wound of unspecified finger without damage to nail, subsequent encounter; Translations: [Unspecified open wound of right [...] traumatic Onset: 03-11-2022 Resolved: 03-11-2022 Episodic Other connective tissue disease (2 sources) Myalgia, unspecified site; Translations: [Myalgia, unspecified site] Onset: 03-19-2024 Episodic Other non-traumatic joint disorders (4 sources) [...] Chronic Other aftercare (1 source) Other exterminator termite (current) drug therapy; Translations: [OTH USP CURRENT DRUG THERAPY] Onset: 02-05-2022 Episodic Other aftercare (1 source) assisted (current) use of oral hypoglycemic drugs; Translations: [USP USE ORAL HYPOGLYCEMIC DX] Onset: 02-05-2022 Episodic [...] Test Name Value Interpretation Reference Range Facility Documentationon 04-15-2024 Documentation [id number] Christina Welsh 1950 F Date Provider Department Center 04/15/2024 ANDERSON VALLEJO MP OT Medical [facility] No family history on file Reason for Visit and Comments: OT Treatment [286] - Patient presented this date and right long finger orthosis was adjusted to extend to include the entire finger from MP joint to the tip. [facility] Follow-Upon 04-14-2024 Follow-Up [id number] Christina Welsh 1950 Date Provider Department [place] 04/14/2024 DENIZ LUU MP ORTHO MPORTHO No family history on file Level of Service:31591 [place] POSTOP FOLLOW UP VISIT RELATED TO ORIGINAL PX Reason for Visit and Comments: Post-op [483] [facility] 36on 04-06-2024 36 Sent to [facility] Office Visiton 04-06-2024 Follow-up visit [id number] Christina Welsh 1950 Provider Department [place] 04/06/2024 DENIZ LUU MP ORTHO MPORTHO No family history on file Level of Service:06372 [place] POSTOP FOLLOW UP VISIT RELATED TO ORIGINAL PX Reason for Visit and Comments: Post-op [483] [facility] HPon 03-25-2024 HP H&P reviewed. The patient was examined and there are no changes to the H&P. [facility] NURSNOTEon 03-25-2024 NURSNOTE Family is at bedside [facility] OPNOTEon 03-25-2024 OPNOTE Operative Note Patient: Christina Welsh Date of Surgery: 03/25/2024 : 1950 Pre-operative Diagnosis: Extensor lag right long finger, with possible deep infection. Post-operative Diagnosis: same Operation: Repair of extensor mechanism right long finger Surgeon: Deniz Roldan MD F[employer] Farmworker: Carlos Valdes MD Staff: [facility] Director: Cara Andrews RN Relief [facility] Director: Yessenia Kothari RN Relief Scrub: Reyna Parnell CST Scrub Person: Julio Adamson CST Anesthesia Type: Regional Indications: The patient is an 73 y.o. female with a 60 degree extension lag of her right long finger PIP joint. She had a open dislocation of the PIP with a near circumferential laceration. We treated that with pinning and then repair of the radial collateral ligament and the extensor tendon. She developed a bit of pin tract infection. This was treated with pin removal and antibiotics. The fingers still remains swollen but without obvious infection. Her wound is well-healed. She has about a 25 degree flexion contracture at the PIP joint and a significant extension lag. I felt the repair of the extensor tendon was indicated, and if need be a debridement of the joint. She is brought to the operating room today for that purpose. The risks and benefits of the procedure were explained prior to surgery, and with good understanding it is agreed to proceed. Procedure: The patient was brought to the operating room and placed on the table in a supine position. A tourniquet was placed around the proximal right arm. No antibiotics were given. The right upper extremity is prepped and draped out in a sterile fashion. To begin the procedure, after standard timeout, she is sedated per the anesthesia service and a digital block along with a dorsal block with 1% lidocaine was administered. The arm is exsanguinated with an Esmarch bandage and the tourniquet is inflated to 250 mmHg. Using a 15 blade, we made a dorsal midline incision over the long finger that is open over the distal half of the proximal phalanx PIP joint and the base of the middle phalanx. There is quite a bit of scar tissue but we are able to identify the plane between the subcutaneous tissue and the extensor mechanism at the proximalmost extent of our incision. We worked from proximal to distal developing the plane. Along the ulnar side the tendon looks to be in continuity but is a bit redundant. Along the radial side it is a bit more frayed and not completely competent. I can see into the joint and the articular surface still looks good. There is no purulence or sign of any significant infection. A intraoperative culture swab of the deeper tissues was obtained just to be safe. Before doing anything with the tendon I just manipulated the finger. I was able to get the finger out into almost complete extension at the PIP joint. The radial collateral ligament is actually healed and is stable. We used 3-0 Monocryl suture To repair the tendon along the radial side. There was some enough tissue that I can essentially do a pants over vest repair with the tissues that are there and then the lateral band was seen and I advanced that is on and anchored it into the central slip which is still pretty much normal looking tissue on the radial side. I think this helped considerably. Where there is a little redundancy now on the ulnar side we put a horizontal mattress suture in to tighten that up and take the redundancy out. The wound is irrigated thoroughly with normal saline solution. I did not want to put a pin back in with her history of the recent pin tract infection. The skin is closed with some interrupted 5 oh-0 Prolene suture. A sterile dressing of Xeroflo gauze, a thin gauze dorsally and then some 2 inch Rigoberto and a volar AlumaFoam splint to hold the finger in full extension was applied. The tourniquet is released and the drapes were removed. All sponge and needle counts are correct at time of closure. She is brought to the recovery area in stable condition, having tolerated the procedure well. Estimate Blood Loss: Minimal Total IV Fluids: Per anesthesia record Specimens: ID Type Source Tests Collected by Time 1 : RIGHT LONG FINGER SWAB Swab Finger WOUND CULTURE AND ANAEROBIC CULTURE Deniz Roldan MD 03/25/2024 [id number] Implants: None Complications: None Disposition: PACU Condition: Stable Deniz Roldan MD Normal [facility] POCT GLUCOSE METER UNSOLICIT ED RESULTSon 03-25-2024 Glucose [Mass/Vol] 96 mg/dL Normal 70-105 [facility] Comment on above: Order Comment: Waive d Testing in the ED is performed under the ED CLIA certificate #[id number]. Result Comment: earl k2 Performed By: #### L [id number] #### [facility] ([facility]) [address] [place] [address] WOUND CULTUREon 03-25-2024 GRAM STAIN RESULT Normal [facility] Comment on above: Order Comment: Pre-o p diagnosis:Tendon pain [M79.10] Result Comment: No p olymorphonuclear leukocytes seen No organisms seen Performed By: #### L [id number] ####[facility] (BEERAN)[address] [place] [address] WOUND CULTURE No growth at 5 days [facility] Comment on above: Order Comment: Pre-o p diagnosis:Tendon pain [M79.10] Performed By: #### L [id number] ####[facility] (BEAKER)[address] [place] [address] 36on 03-23-2024 36 Sent to [facility] Orders Onlyon 03-23-2024 Orders Only [id number] Christina Welsh 1950 [facility] [place] 03/23/2024 [id number]-SUHWMNATY JAQUEZ [facility] Medical No family history on file [facility] 36on 03-19-2024 36 Freight Rate Specialist informed patient that she could be seen at clinic before 11am today, patient on the way [facility] 36 Patient called and would like to be seen today, patient states she is currently taking atb keflex 500mg QID [facility] Abstracton 03-19-2024 Abstract [id number] Christina Welsh 1950 [facility] 03/19/2024 803-KRUNAL CROWDER MP ORTHO MPORTHO No family history on file [facility] Follow-Upon 03-19-2024 Follow-Up [id number] Christina Welsh 1950 [facility] [place] 03/19/2024 Sahara-DENIZ ROLDAN MP ORTHO MPORTHO No family history on file Level of Service:61785 [place] POSTOP FOLLOW UP VISIT RELATED TO ORIGINAL PX Reason for Visit and Comments: Follow-up [909354] [facility] HPon 03-19-2024 Orthopedic Surgery 02/09/2024 I&d, Pinning Right Long Finger - Right, Repair, Extensor Tendon, Finger - Right, and Repair, Ligament, Ulnar Collateral - Right Christina Welsh comes in for a post-operative visit after having a right long finger extensor and collateral ligament repair done on 02/09/2024. she comes in for an unplanned visit because she is concerned about a possible infection. She has been on antibiotics and states that it has not changed much. Physical Exam: The Laceration is well-healed. There is some swelling around the PIP extending proximally to the MP webspace level. There is no fluctuance, but there is some erythema on the skin that she states has been unchanged for a week or so. Tenderness is mild and localized to the surgical site. Sensation is present to light touch. Range of motion is Significantly limited. She has a 60 degree extension lag at the PIP joint. Assessment: Christina Welsh is a 73 y.o. year old female with Persistent swelling and some erythema after an open dislocation of the PIP joint right long finger Plan: clinically I am not certain that there is an actual infection going on. There is certainly insufficiency of the extensor mechanism. The collateral ligament that we fixed is stable. We talked about a couple of options. She is really concerned and I think it would be worth just opening this up and making sure there is no sign of infection. At the very least the extensor mechanism needs to be addressed as she has no active PIP extension. She has another day or 2 worth of antibiotics left. I told her to finish up her current dose and then stopped taking them. We will get her set up for next to do a repair of the extensor mechanism and evaluate to see if there is any infection that is present. [facility] 03-18-2024 36 Patient has upcommin g appointment with On Friday03/23/24. Patient thinks that is to long to wait she believes that she has and infection in her right middle. Patient states her finger is hot red and swollen, and her pain is a 6/10. Patient is asking for a earlier appointment then Friday. Please advise. Thank you. [facility] 36 Patient was moved up to friday [facility] 36 Patient requesting a call back states she needs to be seen sooner, her finger keepts swelling up [facility] 03-10-2024 36 Sent to [facility]03-10-2024 Abstract [id number] Christina Welsh 1950 [facility] [place] 03/10/2024 Elijah3-KRUNAL CROWDER MP ORTHO MPORTHO No family history on file [facility] Office Visiton 03-10-2024 Follow-up visit [id number] Christina Welsh 1950 [facility] [place] 03/10/2024 DENIZ LUU MP ORTHO MPORTHO No family history on file Level of Service:06404 [place] POSTOP FOLLOW UP VISIT RELATED TO ORIGINAL PX Reason for Visit and Comments: Post-op [483] [facility] 36on 03-04-2024 36 See other message [facility] 36 Patient was called and moved to 03/10, patient called back and states that she can not make it that day, patient will be on my list to move up sooner. [facility] Orders Onlyon 03-04-2024 Orders Only [id number] BlaiseChristina 1950 [facility] 03/04/2024 803-KRUNAL CROWDER MP ORTHO MPORTHO No family history on file [facility] 36on 03-03-2024 36 Patient states she h [...] call if this will be an issues. [facility] 36 Pt is scheduled for post op appt on 03/10 that she needs to reschedule I was only able to offer 9- anything sooner?? [facility] 36on 02-25-2024 36 Sent to [facility] Office Visiton 02-25-2024 Follow-up visit [id number] Victoria Welshara 1950 Provider Department [place] 02/25/2024 DENIZ LUU MP ORTHO MPORTHO No family history on file Level of Service:77245 [place] POSTOP FOLLOW UP VISIT RELATED TO ORIGINAL PX Reason for Visit and Comments: Post-op [483] [facility] 3602-16-2024 36 Sent to [facility] 3602-13-2024 36 Sent to [facility] 36 Sent to [facility] 3002-09-2024 30 Problem: Pain - Adul t Goal: [...] for assistance with activity based on assessment [facility] 30 Daily Case Managemen t Update Multidisciplinary rounds have been completed. Barriers to Discharge: Pending Clinical course. Transfer from [facility] I&D at bedside today R finger. Await [...] for OT? Answer: weakness 02/09/24 0748 Normal [facility] HPon 02-09-2024 HP H&P reviewed. The patient was examined and there are no changes to the H&P. Normal [facility] MRSA/MSSA DNA NASALon 2023 MRSA DNA Negative Normal Negative [facility] Comment on above: Order Comment: [...] preclude nasal colonization. Performed By: #### L [id number] #### [facility] ([facility]) [address] [place] [address] MSSA DNA Negative Normal Negative [facility] Comment on above: Order Comment: [...] preclude nasal colonization. Performed By: #### L [id number] #### [facility] ([facility]) [address] [place] [address] OPNOTEon 02-09-2024 OPNOTE Operative Note Patient: Christina Welsh Date of Surgery: 02/09/2024 Pre-operative Diagnosis: Open dislocation PIP joint right long finger Post-operative Diagnosis: same Operation: 1. Irrigation and nonexcisional debridement of open joint, 2. Pinning PIP joint right long finger, 3. Extensor tendon repair right long finger, 4. Repair of ulnar collateral ligament PIP joint right long finger Surgeon: Deniz Roldan MD [employer] Farmworker: Chuckie Miner MD Staff: Speech And Hearing Clinic Director: Cara Andrews RN Scrub Person: Rae Fry [...] then did the soft tissue repairs. A azghuv-gx-vzmir sutures placed into the collateral ligament repairing that bit back to the base of the middle phalanx. There was soft tissue and periosteum at the base that we could get a nice bite of the suture into. A second idkhnz-oo-rpdri suture was used to repair the central [...] Name Action Serial No. Pin K-WIRE,1.1,120MM - [id number] Implanted Complications: None Disposition: PACU Condition: stable Deniz Roldan MD Normal [facility] POCT GLUCOSE METER UNSOLICIT ED RESULTSon 02-09-2024 Glucose [Mass/Vol] 104 mg/dL Normal 70-105 [facility] Comment on above: Order Comment: Waive d Testing in the ED is performed under the ED CLIA certificate #[id number]. Result Comment: asor ia3 Performed By: #### L [id number] #### [facility] (BEAKER) [address] [place] [address] Glucose [Mass/Vol] 96 mg/dL Normal 70-105 [facility] Comment on above: Order Comment: Waive d Testing in the ED is performed under the ED CLIA certificate #[id number]. Result Comment: elac umsky Performed By: #### L [id number] ####[facility] ([facility])[address] [place] [address] BASIC METABOLIC PANELon 07-2 Anion gap [Moles/Vol] 12 mmol/L Normal 7-20 [facility] Comment on above: Performed By: #### L [id number] #### [facility] ([facility]) [address] [place] [address] Calcium [Mass/Vol] 8.5 mg/dL Low 8.6-10.3 [facility] Comment on above: Performed By: #### L [id number] #### [facility] ([facility]) [address] [place] [address] Chloride [Moles/Vol] 106 mmol/L Normal 98-107 [facility] Comment on above: Performed By: #### L [id number] #### [facility] ([facility]) [address] [place] [address] CO2 [Moles/Vol] 25 mmol/L Normal 21-31 [facility] Comment on above: Performed By: #### L [id number] #### [facility] ([facility]) [address] [place] [address] Creatinine [Mass/Vol] 0.60 mg/dL Normal 0.60-1.20 [facility] Comment on above: Performed By: #### L [id number] #### [facility] ([facility]) [address] [place] [address] GLOMERULAR FILTRATION RATE ML/MIN/1.73 SQ M.PREDICTED 95.9 mL/min/1.73m*2 Normal >60.0 [facility] Comment on above: Result Comment: [facility]???s estimated glomerular filtration rate (eGFR) [...] individuals. Performed By: #### L [id number] #### [facility] ([facility]) [address] [place] [address] Glucose [Mass/Vol] 85 mg/dL Normal 70-100 [facility] Comment on above: Performed By: #### L [id number] #### [facility] ([facility]) [address] [place] [address] Potassium [Moles/Vol] 3.8 mmol/L Normal 3.5-5.1 [facility] Comment on above: Performed By: #### L [id number] #### [facility] ([facility]) [address] [place] [address] Sodium [Moles/Vol] 139 mmol/L Normal 136-145 [facility] Comment on above: Performed By: #### L [id number] #### [facility] ([facility]) [address] [place] [address] Urea nitrogen [Mass/Vol] 10 mg/dL Normal 7-25 [facility] Comment on above: Performed By: #### L [id number] #### [facility] ([facility]) [address] [place] [address] UREA NITROGEN/CREATININE (MASS RATIO) IN SER/PLAS 16.7 Normal [facility] Comment on above: Performed By: #### L [id number] #### [facility] ([facility]) [address] [place] [address] CBC WITH AUTO DIFFERENTIALon 02-08-2024 Basophils (Bld) [#/Vol] 0.04 10*3/uL Normal 0.00-0.20 [facility] Comment on above: Performed By: #### L [id number] #### [facility] (BEAKER) [address] [place] [address] Basophils/100 WBC (Bld) 0.4 % Normal 0.0-1.0 [facility] Comment on above: Performed By: #### L [id number] #### [facility] ([facility]) [address] [place] [address] Eosinophils (Bld) [#/Vol] 0.25 10*3/uL Normal 0.00-0.50 [facility] Comment on above: Performed By: #### L [id number] #### [facility] ([facility] [address] [place] [address] Eosinophils/100 WBC (Bld) 2.7 % Normal 0.0-6.0 [facility] Comment on above: Performed By: #### L [id number] #### [facility] ([facility] [address] [place] [address] Erythrocyte distribution width (RBC) [Ratio] 13.8 % Normal 11.5-15.0 [facility] Comment on above: Performed By: #### L [id number] #### [facility] ([facility] [address] [place] [address] ERYTHROCYTE MEAN CORPUSCULAR HEMOGLOBIN CONCENTRATION (G/DL) BY AUTOMATED 32.4 g/dL Normal 32.0-35.0 [facility] Comment on above: Performed By: #### L [id number] #### [facility] ([facility] [address] [place] [address] Hematocrit (Bld) [Volume fraction] 39.8 % Normal 36.0-48.0 [facility] Comment on above: Performed By: #### L [id number] #### [facility] (BEAKER) [address] [place] [address] Hemoglobin (Bld) [Mass/Vol] 12.9 g/dL Normal 12.0-15.0 [facility] Comment on above: Performed By: #### L [id number] #### [facility] (BEAKER) [address] [place] [address] Immature granulocytes (Bld) [#/Vol] 0.02 10*3/uL Normal 0.00-0.20 [facility] Comment on above: Performed By: #### L [id number] #### [facility] ([facility]) [address] [place] [address] Immature granulocytes/100 WBC (Bld) 0.2 % Normal 0.0-1.0 [facility] Comment on above: Performed By: #### L [id number] #### [facility] ([facility]) [address] [place] [address] Lymphocytes (Bld) [#/Vol] 2.74 10*3/uL Normal 1.20-4.00 [facility] Comment on above: Performed By: #### L [id number] #### [facility] ([facility]) [address] [place] [address] Lymphocytes/100 WBC (Bld) 29.6 % Normal 20.0-45.0 [facility] Comment on above: Performed By: #### L [id number] #### [facility] ([facility]) [address] [place] [address] MCH (RBC) [Entitic mass] 31.2 pg Normal 27.0-33.0 [facility] Comment on above: Performed By: #### L [id number] #### [facility] ([facility] [address] [place] [address] MCV (RBC) [Entitic vol] 96.4 fL Normal 82.0-98.0 [facility] Comment on above: Performed By: #### L [id number] #### [facility] ([facility]) [address] [place] [address] Monocytes (Bld) [#/Vol] 0.77 10*3/uL Normal 0.10-1.00 [facility] Comment on above: Performed By: #### L [id number] #### [facility] ([facility]) [address] [place] [address] Monocytes/100 WBC (Bld) 8.3 % Normal 5.0-12.0 [facility] Comment on above: Performed By: #### L [id number] #### [facility] ([facility]) [address] [address] Neutrophils (Bld) [#/Vol] 5.45 10*3/uL Normal 1.60-7.60 [facility] Comment on above: Performed By: #### L [id number] #### [facility] ([facility]) [address] [place] [address] Neutrophils/100 WBC (Bld) 58.8 % Normal 40.0-72.0 [facility] Comment on above: Performed By: #### L [id number] #### [facility] ([facility]) [address] [place] [address] NRBC (PER 100 WBCS) BY AUTOMATED COUNT 0.0 % Normal 0 [facility] Comment on above: Performed By: #### L [id number] #### [facility] ([facility]) [address] [place] [address] PLATELETS (10*3/UL) IN BLOOD AUTOMATED COUNT 342 10*3/uL Normal 150-400 [facility] Comment on above: Performed By: #### L [id number] #### [facility] ([facility]) [address] [place] [address] RBC (Bld) [#/Vol] 4.13 10*6/uL Normal 3.80-5.00 [facility] Comment on above: Performed By: #### L [id number] #### [facility] ([facility]) [address] [place] [address] WBC (Bld) [#/Vol] 9.27 10*3/uL Normal 4.00-10.60 [facility] Comment on above: Performed By: #### L [id number] #### [facility] ([facility]) [address] [place] [address] CT CERVICAL SPINE WO IV CONT RASTon [...] malalignment. Electronically signed: Mary Martinez MD. Normal [facility] CT HEAD WO IV CONTRASTon [...] or pathology. Electronically signed: Mary Martinez MD. [facility] EDNURSon 02-08-2024 EDNURS Transfer from [facility] HPon 02-08-2024 HP -- Attestation signed by Deniz Roldan MD at 02/09/2024 8:24 AM I did not personally examine the patient. I discussed the case with the resident and agree with the plan. ORTHOPEDIC SURGERY CONSULTATION CHIEF COMPLAINT: right long finger injury HPI: Christina Welsh is a 73 y.o. female with complaint of right long finger injury. Pain began after their finger got caught in their dog's collar as the dog took off running. They presented to the [facility] Emergency Department where x-rays were obtained [...] joint with soft tissue swelling. Assessment: Christina Welsh is a 73 y.o.female with a traumatic [...] MD Orthopedic Surgery Resident, PGY-1 02/08/2024 Normal [facility] PROTIME-INRon 02-08-2024 INR IN PPP BY COAGULATION ASSAY 0.98 Normal 0.90-1.10 [facility] Comment on above: Result [...] 1995;108:[id number]-246S. Performed By: #### L [id number] #### [facility] ([facility]) [address] [place] [address] PROTHROMBIN TIME (PT) IN PPP BY COAGULATION ASSAY 13.0 Seconds Normal 12.3-14.8 [facility] Comment on above: Performed By: #### L [id number] #### [facility] ([facility]) [address] [place] [address] TYPE AND SCREENon 02-08-2024 AB SCREEN Negative Normal [facility] Comment on above: Performed By: #### L [id number] #### [facility] BLOOD BANK , ABO group Nom (Bld) O Normal [facility] Comment on above: Performed By: #### L [id number] #### [facility] BLOOD BANK , RH TYPE IN BLOOD Positive Normal [facility] Comment on above: Performed By: #### L [id number] #### [facility] BLOOD BANK , VITAMIN D 25 HYDROXYon 02-07 CALCIDIOL (25 [place] VITAMIN D3) (NG/ML) IN SER/PLAS 49.9 ng/mL Normal 30.0-80.0 [facility] Comment on above: Result Comment: >80. 0 Toxicity possible Performed By: #### L [id number] #### [facility] ([facility]) [address] [place] [address] BI MAMMOGRAM SCREENING TOMOS YNTHESIS BILATERALon 07-17-2023 [...] IS VERY IMPORTANT TO YOUR HEALTH. THE [employer] GUIDELINES RECOMMEND THAT WOMEN 40 [...] BY: Abhi Jefferson MD Normal Not Available [facility] echo transthoracicon [facility] echo transthoracic [facility] [place] [address] [place] [address] Echocardiogram Signed Patient: Christina Welsh MR#: [id number] : 1950 Acct:[id number] Age/Sex: 72 / F ADM Date: 01/03/23 Loc: Room: Type: [facility] Attending Dr: Ning ORTIZ Ordering Provider: Ning ORTIZ Date of Service: 01/03/23/ [facility] echo transthoracic: murmur. Copies to: Ning Celaya MD Weight: 180 lb Performed By: Chelsie [...] cm Transcribed By: SCV Performed At: 01/03/23 5108 Signed By: Adrianne Celaya MD 01/03/23 1811 [facility] FREE T3on 06-18-2022 FREE T3 2.83 pg/mlL Normal 2.18-3.98 [facility] Comment on above: Performed By: #### T SH, FT3, BMP ####[facility] [address] [place] [address]DrGilberto Rolon FREE T4on 06-18-2022 Free T4 [Mass/Vol] 1.03 ng/dL Normal 0.76-1.46 [facility] Comment on above: Performed By: #### F T4 #### [facility] Laboratory [address] [address] [address] Mary Ellen Rolon GLYCOHEMOGLOBIN A1Con 2021 ADA RECOMMENDATION SEE BELOW Normal [facility] Comment on above: Result Comment: ADA RECOMMENDED LIMIT 4.0 - 6.0 ADA THERAPEUTIC TARGET < 7.0 ACTION SUGGESTED > 7.0 Performed By: #### A 1C ####[facility] [address] [place] [address]Dr. Mary Ellen Rolon Glucose [Mass/Vol] 137 mg/dL Normal [facility] Comment on above: Performed By: #### A 1C ####[facility] [address] [place], [place] [address]DrGilberto Rolon HbA1c (Bld) [Mass fraction] 6.4 % Critically high 4.5-6.2 [facility] Comment on above: Performed By: #### A 1C ####[facility] [address] [place] [address]Dr. Mary Ellen Rolon PROF CHEM 8 (BAS METB)on Anion gap [Moles/Vol] 11.5 mmol/L Normal [facility] Comment on above: Performed By: #### T SH, FT3, BMP ####[facility] [address] [place] [address]DrGilberto Rolon Calcium [Mass/Vol] 9.2 mg/dL Normal 8.5-10.1 [facility] Comment on above: Performed By: #### T SH, FT3, BMP ####[facility] [address] [place] [address]DrGilberto Rolon Chloride [Moles/Vol] 102 mmol/L Normal 98-107 [facility] Comment on above: Performed By: #### T SH, FT3, BMP ####[facility] [address] [place] [address]Dr. Mary Ellen Rolon CO2 [Moles/Vol] 29.5 mmol/L Normal 21.0-32.0 [facility] Comment on above: Performed By: #### T SH, FT3, BMP ####[facility] [address] [place] [address]Dr. Mary Ellen Rolon Creatinine [Mass/Vol] 0.66 mg/dL Normal 0.55-1.02 [facility] Comment on above: Performed By: #### T SH, FT3, BMP ####[facility] [address] [place] [address]Dr. Mary Ellen Rolno EGFR-AF DUTCH >60 Normal >=60 [facility] Comment on above: Performed By: #### T SH, FT3, BMP ####[facility] [address] [place], [place] [address]Dr. Mary Ellen Rolon EGFR-NON AF DUTCH >60 Normal >=60 [facility] Comment on above: Performed By: #### T SH, FT3, BMP ####[facility] [address] [place], [place] [address]Dr. Mary Ellen Rolon Glucose [Mass/Vol] 120 mg/dL Critically high 74-106 [facility] Comment on above: Performed By: #### T SH, FT3, BMP ####[facility] [address] [place] [address]Dr. Mary Ellen Rolon Potassium [Moles/Vol] 4.0 mmol/L Normal 3.5-5.1 [facility] Comment on above: Performed By: #### T SH, FT3, BMP ####[facility] [address] [place] [address]Dr. Mary Ellen Rolon Sodium [Moles/Vol] 139 mmol/L Normal 136-145 [facility] Comment on above: Performed By: #### T SH, FT3, BMP ####[facility] [address] [place] [address]Dr. Mary Ellen Rolon Urea nitrogen [Mass/Vol] 11.0 mg/dL Normal 7.0-18.0 [facility] Comment on above: Performed By: #### T SH, FT3, BMP ####[facility] [address] [place], [place] [address]QtGilberto Rolon Urea nitrogen/Creatinine [Mass ratio] 16.7 mg/mg Normal [facility] Comment on above: Performed By: #### T SH, FT3, BMP ####[facility] [address] [place], [place] [address]UoGilberto Mary Ellen Rolon TSHon 06-18-2022 TSH 0.734 uIU/mL Normal 0.358-3.740 [facility] Comment on above: Performed By: #### T SH, FT3, BMP ####[facility] [address] [place], [place] [address]De. Mary Ellen Rolon SCREENING MAMMOGRAM W/BERONICA, BILATERAL*on [...] VERY IMPORTANT TO YOUR HEALTH. THE CURRENT [employer] GUIDELINES RECOMMENDS ANNUAL MAMMOGRAPHY BEGINNING AT AGE 40 THIS FACILITY USES A REMINDER SYSTEM TO ENSURE ALL PATIENTS RECEIVE REMINDER NOTIFICATIONS AT THE APPROPRIATE TIME BASED ON THE RECOMMENDATIONS OF THIS EXAM. Board Certified Radiologist. Accredited by the ACR and FDA. Report reported and signed by Abhi Jefferson on 04/02/2022 1442 Normal [facility] Customer Success Intern FREE T3on 02-08-2022 FREE T3 1.70 pg/mlL Critically low 2.18-3.98 [facility] Comment on above: Performed By: #### F T4, VITAD #### [facility] [address] [place], [place] [address] Dr. Mary Ellen Rolon GLYCOHEMOGLOBIN A1Con 2021 ADA RECOMMENDATION SEE BELOW Normal [facility] Comment on above: Result Comment: ADA RECOMMENDED LIMIT 4.0 - 6.0 ADA THERAPEUTIC TARGET < 7.0 ACTION SUGGESTED > 7.0 Performed By: #### A 1C #### [facility] [address] [address] [address] Mary Ellen Rolon Glucose [Mass/Vol] 148 mg/dL Normal [facility] Comment on above: Performed By: #### A 1C #### [facility] Laboratory [address] [address] [address] Mary Ellen Rolon HbA1c (Bld) [Mass fraction] 6.8 % Critically high 4.5-6.2 [facility] Comment on above: Performed By: #### A 1C #### [facility] [address] [address] [address] Mary Ellen Rolon LIPID PROFILEon 02-08-2022 CHOL-HDL RATIO NORM SEE BELOW Normal [facility] Comment on above: Result Comment: 3.3 - 4.4 LOW RISK 4.4 - 7.1 AVERAGE RISK 7.1 - 11.0 MODERATE RISK >11.0 HIGH RISK Performed By: #### T SH, FT3, T4, CMP, LIPID ####[facility] [address] [place] [address]DrGilberto Rolon Cholesterol [Mass/Vol] 169 mg/dL Normal <=200 [facility] Comment on above: Performed By: #### T SH, FT3, T4, CMP, LIPID ####[facility] [address] [place] [address]DrGilberto Rolon Cholesterol in HDL [Mass/Vol] 51 mg/dL Normal 40-60 [facility] Comment on above: Performed By: #### T SH, FT3, T4, CMP, LIPID ####[facility] [address] [place] [address]Dr. Mary Ellen Rolon Cholesterol in LDL [Mass/Vol] 86.8 mg/dL Normal [facility] Comment on above: Performed By: #### T SH, FT3, T4, CMP, LIPID ####[facility] [address] [place] [address]DrGilberto Rolon Cholesterol.total/Ch olesterol in HDL [Mass ratio] 3.3 {ratio} Normal [facility] Comment on above: Performed By: #### T SH, FT3, T4, CMP, LIPID ####[facility] [address] [place] [address]Dr. Mary Ellen Rolon HDL NORMAL > or = 60 mg/dl - LO W CARDIOVASCULAR RISK <40 mg/dl - HIGH CARDIOVASCULAR RISK Normal [facility] Comment on above: Performed By: #### T SH, FT3, T4, CMP, LIPID ####[facility] [address] [place] [address]Dr. Mary Ellen Rolon LDL CALC NORMAL SEE BELOW Normal [facility] Comment on above: Result Comment: <100 mg/dl OPTIMAL 100 - 129 mg/dl NEAR OR ABOVE OPTIMAL 130 - 159 mg/dl BORDERLINE HIGH 160 - 189 mg/dl HIGH >190 mg/dl VERY HIGH Performed By: #### T SH, FT3, T4, CMP, LIPID ####[facility] [address] [place] [address]Dr. Mary Ellen Rolon Triglyceride [Mass/Vol] 156 mg/dL Critically high <=150 [facility] Comment on above: Performed By: #### T SH, FT3, T4, CMP, LIPID ####[facility] [address] [place] [address]Dr. Mary Ellen Rolon VLDL CALC 31.2 mg/dL Normal [facility] Comment on above: Performed By: #### T SH, FT3, T4, CMP, LIPID ####[facility] [address] [place] [address]Dr. Mary Ellen Rolon MICROALBUMIN, RAND URon - mALB <1.3 Normal <=30.0 [facility] Comment on above: Performed By: #### M ALBR ####[facility] [address] [place] [address]Dr. Mary Ellen Rolon PROF 14(COMP METB)on 022 Albumin [Mass/Vol] 3.6 g/dL Normal 3.4-5.0 [facility] Comment on above: Performed By: #### T SH, FT3, T4, CMP, LIPID ####[facility] [address] [place] [address]Dr. Mary Ellen Rolon Albumin/Globulin [Mass ratio] 1.1 {ratio} Normal [facility] Comment on above: Performed By: #### T SH, FT3, T4, CMP, LIPID ####[facility] [address] [place] [address]Dr. Mary Ellen Rolon ALP [Catalytic activity/Vol] 77 U/L Normal 46-116 [facility] Comment on above: Performed By: #### T SH, FT3, T4, CMP, LIPID ####[facility] [address] [place] [address]Dr. Mary Ellen Rolon ALT [Catalytic activity/Vol] 22 U/L Normal 14-59 [facility] Comment on above: Performed By: #### T SH, FT3, T4, CMP, LIPID ####[facility] [address] [place], [place] [address]Dr. Mary Ellen Rolon Anion gap [Moles/Vol] 11.7 mmol/L Normal [facility] Comment on above: Performed By: #### T SH, FT3, T4, CMP, LIPID ####[facility] [address] [place], [place] [address]Dr. Mary Ellen Rolon AST [Catalytic activity/Vol] 12 U/L Critically low 15-37 [facility] Comment on above: Performed By: #### T SH, FT3, T4, CMP, LIPID ####[facility] [address] [place], [place] [address]Dr. Mary Ellen Rolon Bilirubin [Mass/Vol] 0.3 mg/dL Normal 0.2-1.0 [facility] Comment on above: Performed By: #### T SH, FT3, T4, CMP, LIPID ####[facility] [address] [place], [place] [address]Dr. Mary Ellen Rolon Calcium [Mass/Vol] 8.6 mg/dL Normal 8.5-10.1 [facility] Comment on above: Performed By: #### T SH, FT3, T4, CMP, LIPID ####[facility] [address] [place] [address]Dr. Mary Ellen Rolon Chloride [Moles/Vol] 103 mmol/L Normal 98-107 [facility] Comment on above: Performed By: #### T SH, FT3, T4, CMP, LIPID ####[facility] [address] [place] [address]Dr. Mary Ellen Rolon CO2 [Moles/Vol] 27.3 mmol/L Normal 21.0-32.0 [facility] Comment on above: Performed By: #### T SH, FT3, T4, CMP, LIPID ####[facility] [address] [place] [address]Dr. Mary Ellen Rolon Creatinine [Mass/Vol] 0.67 mg/dL Normal 0.55-1.02 [facility] Comment on above: Performed By: #### T SH, FT3, T4, CMP, LIPID ####[facility] [address] [place] [address]Dr. Mary Ellen Rolon EGFR-AF DUTCH >60 Normal >=60 [facility] Comment on above: Performed By: #### T SH, FT3, T4, CMP, LIPID ####[facility] [address] [place] [address]Dr. Mary Ellen Rolon EGFR-NON AF DUTCH >60 Normal >=60 [facility] Comment on above: Performed By: #### T SH, FT3, T4, CMP, LIPID ####[facility] [address] [place] [address]Dr. Mary Ellen Rolon Globulin (S) [Mass/Vol] 3.3 g/dL Normal [facility] Comment on above: Performed By: #### T SH, FT3, T4, CMP, LIPID ####[facility] [address] [place] [address]Dr. Mary Ellen Rolon Glucose [Mass/Vol] 166 mg/dL Critically high 74-106 [facility] Comment on above: Performed By: #### T SH, FT3, T4, CMP, LIPID ####[facility] [address] [place] [address]Dr. Mary Ellen Rolon Potassium [Moles/Vol] 4.0 mmol/L Normal 3.5-5.1 [facility] Comment on above: Performed By: #### T SH, FT3, T4, CMP, LIPID ####[facility] [address] [place] [address]Dr. Mary Ellen Rolon Protein [Mass/Vol] 6.9 g/dL Normal 6.4-8.2 [facility] Comment on above: Performed By: #### T SH, FT3, T4, CMP, LIPID ####[facility] [address] [place] [address]Dr. Mary Ellen Rolon Sodium [Moles/Vol] 138 mmol/L Normal 136-145 [facility] Comment on above: Performed By: #### T SH, FT3, T4, CMP, LIPID ####[facility] [address] [place] [address]Dr. Mary Ellen Rolon Urea nitrogen [Mass/Vol] 12.0 mg/dL Normal 7.0-18.0 [facility] Comment on above: Performed By: #### T SH, FT3, T4, CMP, LIPID ####[facility] [address] [place] [address]Dr. Mary Ellen Rolon Urea nitrogen/Creatinine [Mass ratio] 17.9 mg/mg Normal [facility] Comment on above: Performed By: #### T SH, FT3, T4, CMP, LIPID ####[facility] [address] [place] [address]Dr. Mary Ellen Rolon T4on 02-08-2022 T4 [Mass/Vol] 7.00 ug/dL Normal 4.80-13.90 [facility] Comment on above: Performed By: #### T SH, FT3, T4, CMP, LIPID ####[facility] [address] [place] [address]Dr. Mary Ellen Rolon TSHon 02-08-2022 TSH 3.041 uIU/mL Normal 0.358-3.740 [facility] Comment on above: Performed By: #### F T4, VITAD #### [facility] [address] [place] [address] CSPINE WO [...] BERKLEY GALINDO Date: 2022-02-01 17:23 Normal [facility] CT HEAD WO CONon 02-01-2022 CT HEAD [...] BERKLEY GALINDO Date: 2022-02-01 17:11 Normal [facility] XR HIP RT 2 3V W PELVISon [...] MALAIKA NORTH Date: 2022-02-01 17:49 Normal [facility] XR HUMERUS RT MIN 2 Von 01-18 [...] MALAIKA NORTH Date: 2022-02-01 17:47 Normal [facility] XR KNEE BETTYE 4V or >on 2021 [...] MEME MONTENEGRO Date: 2021-10-19 16:39 Normal [facility] XR RIBS RT PA Juliet 2 XR [...] MEME MONTENEGRO Date: 2021-10-19 16:41 Normal [facility] CBC AUTO DIFFon 08-09-2021 BASO # 0.0 103/ul Normal 0.0-0.1 [facility] Comment on above: Performed By: #### C BC ####[facility] [address] [place] [address]Dr. Ginasreekanth Rolon Basophils/100 WBC (Bld) 0.4 % Normal 0.2-2.0 [facility] Comment on above: Performed By: #### C BC ####[facility] [address] [place] [address]Dr. Mary Ellen Rolon EO # 0.5 103/ul Normal 0.0-0.7 [facility] Comment on above: Performed By: #### C BC ####[facility] [address] [place], [place] [address]Dr. Ginasreekanth Rolon Eosinophils/100 WBC (Bld) 6.6 % Normal 0.9-7.0 [facility] Comment on above: Performed By: #### C BC ####[facility] [address] [place] [address]Dr. Ginasreekanth Rolon Erythrocyte distribution width (RBC) [Ratio] 13.9 % Normal 11.0-15.0 [facility] Comment on above: Performed By: #### C BC ####[facility] [address] [place] [address]Dr. Mary Ellen Rolon Hematocrit (Bld) [Volume fraction] 42.6 % Normal 36.0-48.0 [facility] Comment on above: Performed By: #### C BC ####[facility] [address] [place] [address]Dr. Ginasreekanth Gonzales Hemoglobin (Bld) [Mass/Vol] 13.5 g/dL Normal 12.0-16.0 [facility] Comment on above: Performed By: #### C BC ####[facility] [address] [place] [address]Dr. Mary Ellen Rolon IG # 0.04 10e3/ul Critically high 0.00-0.03 [facility] Comment on above: Performed By: #### C BC ####[facility] [address] [place] [address]Dr. Mary Ellen Rolon IG % 0.5 % Normal 0.0-0.5 [facility] Comment on above: Performed By: #### C BC ####[facility] [address] [place] [address]Dr. Mary Ellen Rolon LYMPH # 2.2 103/ul Normal 1.2-3.8 [facility] Comment on above: Performed By: #### C BC ####[facility] [address] [place] [address]Dr. Mary Ellen Rolon Lymphocytes/100 WBC (Bld) 26.9 % Normal 20.5-60.0 [facility] Comment on above: Performed By: #### C BC ####[facility] [address] [place] [address]Dr. Mary Ellen Rolon MANUAL DIFF REQ NO Normal [facility] Comment on above: Performed By: #### C BC ####[facility] [address] [place], [place] [address]Dr. Ginasreekanth Rolon MCH (RBC) [Entitic mass] 29.2 pg Normal 26.7-34.0 [facility] Comment on above: Performed By: #### C BC ####[facility] [address] [place] [id number]. Mary Ellen Rolon MCHC (RBC) [Mass/Vol] 31.7 g/dL Normal 29.9-35.2 [facility] Comment on above: Performed By: #### C BC ####[facility] [address] [place] [id number]. Mary Ellen Rolon MCV (RBC) [Entitic vol] 92.0 fL Normal 81.0-99.0 The [facility] Comment on above: Performed By: #### C BC ####[facility] [address] [place] [id number]. Mary Ellen Rolon MONO # 0.7 103/ul Normal 0.3-0.8 [facility] Comment on above: Performed By: #### C BC ####[facility] [address] [place] [address]Dr. Mary Ellen Rolon Monocytes/100 WBC (Bld) 8.1 % Normal 1.7-12.0 The [facility] Comment on above: Performed By: #### C BC ####[facility] If[address] [place], [place] [id number]. Mary Ellen Rolon NEUT # 4.7 103/ul Normal 1.4-6.5 [facility] Comment on above: Performed By: #### C BC ####[facility] [address]imp[address] [place] [address]Dr. Mary Ellen Rolon Neutrophils/100 WBC (Bld) 57.5 % Normal 43.0-75.0 The [facility] Comment on above: Performed By: #### C BC ####[facility] [address] [place] [address]Dr. Mary Ellen Rolon Platelet mean volume (Bld) [Entitic vol] 9.1 fL Critically low 9.5-13.5 The [facility] Comment on above: Performed By: #### C BC ####[facility] [address] [place] [address]Dr. Mary Ellen Rolon PLT 306 103/ul Normal 150-450 The [facility] Comment on above: Performed By: #### C BC ####[facility] [address] [place] [address]Dr. Ginasreekanth Rolon RBC 4.63 106/ul Normal 4.20-5.40 The [facility] Comment on above: Performed By: #### C BC ####[facility] [address] [place] [address]DrGilberto Rolon WBC 8.2 103/ul Normal 4.0-11.0 The [facility] Comment on above: Performed By: #### C BC ####[facility] [address] [place] [address]DrGilberto Rolon FREE T3on 08-09-2021 FREE T3 3.32 pg/mlL Normal 2.77-5.27 The [facility] Comment on above: Performed By: #### T SH, FT3, CMP, LIPID #### [facility] Laboratory [address] [address] [address] Mary Ellen Rolon FREE T4on 08-09-2021 Free T4 [Mass/Vol] 1.12 ng/dL Normal 0.78-2.19 [facility] Comment on above: Performed By: #### F T4, VITAD #### [facility] Laboratory [address] [place] [address] [address] Mary Ellen Rolon GLYCOHEMOGLOBIN A1Con 2021 ADA RECOMMENDATION ADA THERAPEUTIC TARG ET 6.0 - 7.0 ACTION SUGGESTED > 7.0 Normal The [facility] Comment on above: Performed By: #### A 1C ####[facility] [address] [place] [address]Dr. Mary Ellen Rolon Glucose [Mass/Vol] 137 mg/dL Normal [facility] Comment on above: Performed By: #### A 1C ####[facility] [address] [place] [id number]. Mary Ellen Rolon HbA1c (Bld) [Mass fraction] 6.4 % Critically high <=6.0 The [facility] Comment on above: Performed By: #### A 1C ####[facility] [address] [place] [address]Dr. Mary Ellen Rolon LIPID PROFILEon 08-09-2021 CHOL-HDL RATIO NORM SEE BELOW Normal [facility] Comment on above: Result Comment: 3.3 - 4.4 LOW RISK 4.4 - 7.1 AVERAGE RISK 7.1 - 11.0 MODERATE RISK >11.0 HIGH RISK Performed By: #### T SH, FT3, CMP, LIPID #### [facility] Laboratory [address] [address] [address] Mary Ellen Rolon Cholesterol [Mass/Vol] 142 mg/dL Normal <=200 [facility] Comment on above: Performed By: #### T SH, FT3, CMP, LIPID #### [facility] Laboratory [address] [address] [address] Mary Ellen Rolon Cholesterol in HDL [Mass/Vol] 49 mg/dL Normal [facility] Comment on above: Performed By: #### T SH, FT3, CMP, LIPID #### [facility] Laboratory [address] [place] [address] Dr. Mary Ellen Rolon Cholesterol in LDL [Mass/Vol] 65.6 mg/dL Normal [facility] Comment on above: Performed By: #### T SH, FT3, CMP, LIPID #### [facility] Laboratory [address] [address] [address] Mary Ellen Rolon Cholesterol.total/Ch olesterol in HDL [Mass ratio] 2.9 {ratio} Normal [facility] Comment on above: Performed By: #### T SH, FT3, CMP, LIPID #### [facility] Laboratory [address] [address] [address] Mary Ellen Rolon HDL NORMAL > or = 60 mg/dl - LO W CARDIOVASCULAR RISK <40 mg/dl - HIGH CARDIOVASCULAR RISK Normal [facility] Comment on above: Performed By: #### T SH, FT3, CMP, LIPID #### [facility] Laboratory [address] [address] [address] Mary Ellen Rolon LDL CALC NORMAL SEE BELOW Normal [facility] Comment on above: Result Comment: <100 mg/dl OPTIMAL 100 - 129 mg/dl NEAR OR ABOVE OPTIMAL 130 - 159 mg/dl BORDERLINE HIGH 160 - 189 mg/dl HIGH >190 mg/dl VERY HIGH Performed By: #### T SH, FT3, CMP, LIPID #### [facility] Laboratory [address] [address] [address] Mary Ellen Rolon Triglyceride [Mass/Vol] 137 mg/dL Normal <=150 The [facility] Comment on above: Performed By: #### T SH, FT3, CMP, LIPID #### [facility] Laboratory [address] [address] [address] Mary Ellen Rolon VLDL CALC 27.4 mg/dL Normal [facility] Comment on above: Performed By: #### T SH, FT3, CMP, LIPID #### [facility] Laboratory [address] [address] [address] Mary Ellen Rolon MICROALB CREAT RATIO RANDOMo n 08-09-2021 mALB 1.7 mg/L Normal <=30.0 [facility] Comment on above: Performed By: #### F T4, VITAD #### [facility] Laboratory [address] [address] [address] Mary Ellen Rolon MALB CR RATIO 13.1 mg/g Normal 0.0-29.9 [facility] Comment on above: Performed By: #### F T4, VITAD #### [facility] Laboratory [address] [address] [address] Mary Ellen Rolon MALB CR RATIO RANGE SEE BELOW Normal [facility] Comment on above: Result Comment: NO M ICROALBUMINURIA 0-29 MG/G CLINICAL MICROALBUMINURIA 30-300 MG/G MACROALBUMINURIA >300 MG/G Performed By: #### F T4, VITAD #### [facility] Laboratory [address] [address] [address] Mary Ellen Rolon URINE CREAT 129.89 mg/dL Normal 20.00-300.00 [facility] Comment on above: Performed By: #### F T4, VITAD #### [facility] Laboratory [address] [address] [address] Mary Ellen Rolon PROF 14(COMP METB)on 022 Albumin [Mass/Vol] 3.5 g/dL Normal 3.5-5.0 [facility] Comment on above: Performed By: #### T SH, FT3, CMP, LIPID #### [facility] Laboratory [address] [address] [address] Mary Ellen Rolon Albumin/Globulin [Mass ratio] 1.1 {ratio} Normal [facility] Comment on above: Performed By: #### T SH, FT3, CMP, LIPID #### [facility] Laboratory [address] [address] [address] Mary Ellen Rolon ALP [Catalytic activity/Vol] 79 U/L Normal 38-126 [facility] Comment on above: Performed By: #### T SH, FT3, CMP, LIPID #### [facility] Laboratory [address] [address] [address] Mary Ellen Rolon ALT [Catalytic activity/Vol] 23 U/L Normal 9-52 [facility] Comment on above: Performed By: #### T SH, FT3, CMP, LIPID #### [facility] Laboratory [address] [place] [address] Dr. Mary Ellen Rolon Anion gap [Moles/Vol] 11.7 mmol/L Normal [facility] Comment on above: Performed By: #### T SH, FT3, CMP, LIPID #### [facility] Laboratory [address] [address] [address] Mary Ellen Rolon AST [Catalytic activity/Vol] 11 U/L Critically low 14-36 [facility] Comment on above: Performed By: #### T SH, FT3, CMP, LIPID #### [facility] Laboratory [address] [address] [address] Mary Ellen Rolon Bilirubin [Mass/Vol] 0.4 mg/dL Normal 0.2-1.3 [facility] Comment on above: Performed By: #### T SH, FT3, CMP, LIPID #### [facility] Laboratory [address] [address] [address] Mar yEllen Rolon Calcium [Mass/Vol] 8.6 mg/dL Normal 8.4-10.2 [facility] Comment on above: Performed By: #### T SH, FT3, CMP, LIPID #### [facility] Laboratory [address] [address] [address] Mary Ellen Rolon Chloride [Moles/Vol] 104 mmol/L Normal 98-107 [facility] Comment on above: Performed By: #### T SH, FT3, CMP, LIPID #### [facility] Laboratory [address] [place] [address] Dr. Mary Ellen Rolon CO2 [Moles/Vol] 28.3 mmol/L Normal 22.0-30.0 [facility] Comment on above: Performed By: #### T SH, FT3, CMP, LIPID #### [facility] Laboratory [address] [place] [address] Dr. Mary Ellen Rolon Creatinine [Mass/Vol] 0.65 mg/dL Normal 0.52-1.04 [facility] Comment on above: Performed By: #### T SH, FT3, CMP, LIPID #### [facility] Laboratory [address] [place] [address] Dr. Mary Ellen Rolon EGFR-AF DUTCH >60 Normal >=60 [facility] Comment on above: Performed By: #### T SH, FT3, CMP, LIPID #### [facility] Laboratory [address] [place] [address] Dr. Mary Ellen Rolon EGFR-NON AF DUTCH >60 Normal >=60 [facility] Comment on above: Performed By: #### T SH, FT3, CMP, LIPID #### [facility] Laboratory [address] [place] [address] Dr. Mary Ellen Rolon Globulin (S) [Mass/Vol] 3.3 g/dL Normal [facility] Comment on above: Performed By: #### T SH, FT3, CMP, LIPID #### [facility] Laboratory [address] [place] [address] Dr. Mary Ellen Rolon Glucose [Mass/Vol] 138 mg/dL Critically high 74-106 [facility] Comment on above: Performed By: #### T SH, FT3, CMP, LIPID #### [facility] Laboratory [address] [place] [address] Dr. Mary Ellen Rolon Potassium [Moles/Vol] 4.0 mmol/L Normal 3.4-5.0 [facility] Comment on above: Performed By: #### T SH, FT3, CMP, LIPID #### [facility] Laboratory [address] [place] [address] Dr. Mary Ellen Rolon Protein [Mass/Vol] 6.8 g/dL Normal 6.1-8.2 [facility] Comment on above: Performed By: #### T SH, FT3, CMP, LIPID #### [facility] Laboratory [address] [place] [address] Dr. Mary Ellen Rolon Sodium [Moles/Vol] 140 mmol/L Normal 137-145 [facility] Comment on above: Performed By: #### T SH, FT3, CMP, LIPID #### [facility] Laboratory [address] [place] [address] Dr. Mary Ellen Rolon Urea nitrogen [Mass/Vol] 12.0 mg/dL Normal 7.0-17.0 [facility] Comment on above: Performed By: #### T SH, FT3, CMP, LIPID #### [facility] Laboratory [address] [place] [address] Dr. Mary Ellen Rolon Urea nitrogen/Creatinine [Mass ratio] 18.5 mg/mg Normal [facility] Comment on above: Performed By: #### T SH, FT3, CMP, LIPID #### [facility] Laboratory [address] [place] [address] Dr. Mary Ellen Rolon TSHon 08-09-2021 TSH 0.209 uIU/mL Critically low 0.470-4.680 [facility] Comment on above: Performed By: #### T SH, FT3, CMP, LIPID #### [facility] Laboratory [address] [place] [address] Dr. Mary Ellen Rolon TSH RANGE SEE BELOW Normal [facility] Comment on above: Result Comment: <0.3 4 UIU/ml HYPERTHYROID 0.34-5.60 UIU/ml EUTHYROID >5.60 UIU/ml HYPOTHYROID Performed By: #### T SH, FT3, CMP, LIPID #### [facility] Laboratory [address] [place] [address] Dr. Mary Ellen Rolon VITAMIN D 25 OHon 08-09-2021 VIT D 25-OH 61.5 ng/mL Normal [facility] Comment on above: Performed By: #### F T4, VITAD #### [facility] Laboratory [address] [place], [place] [address] Dr. Mary Ellen Rolon VIT D RANGES SEE BELOW Normal [facility] Comment on above: Result Comment: <20 ng/mL Vit D deficient 20 - <30 ng/mL Vit D insufficient 30 - 100 ng/mL Vit D sufficient >100 ng/mL Potential Toxicity Performed By: #### F T4, VITAD #### [facility] Laboratory [address] [address] [address] Mary Ellen Rolon Vital Signs Date Time Vital Sign Value Performing Clinician Facility 08-22-2023 10:20-0500 Body height 167.6 cm Marquis WALTON Work Phone: [facility] [employer] 08-22-2023 10:20-0500 Body mass index (BMI) [Ratio] 25.18 kg/m2 Marquis WALTON Work Phone: [facility] [employer] 08-22-2023 10:20-0500 Body weight 70.76 kg Marquis WALTON Work Phone: [facility] [employer] 07-02-2023 11:15-0500 Body height 167.64 cm Meme Gong Other [employer] Other 07-02-2023 11:15-0500 Body mass index (BMI) [Ratio] 26.14 kg/m2 Meme Gong Other [employer] [employer] Other 07-02-2023 11:15-0500 Body weight 73.48 kg Meme Gong Other [facility] [employer] Other 07-02-2023 11:15-0500 Diastolic blood pressure 71 mm[Hg] Meme Gong Other [employer] [employer] Other 07-02-2023 11:15-0500 SaO2% (BldA) [Mass fraction] 96 % Meme Gong Other [facility] Other 07-02-2023 11:15-0500 Systolic blood pressure 127 mm[Hg] Meme Gong Other [facility] [employer] Other 06-27-2022 10:00-0500 Body height 167.64 cm Le Lam Other [employer] [employer] Other 06-27-2022 10:00-0500 Body mass index (BMI) [Ratio] 29.37 kg/m2 Le Rios[facility] Other [employer] [employer] Other 06-27-2022 10:00-0500 Body weight 82.56 kg Le Riosxa Other [employer] Other Encounters Encounter Date Encounter Type Care Provider Facility [facility]: [facility] Start: 04-08-2024 End: 04-08-2024 ambulatory AUGUSTA SURESH Not Available Start: 04-06-2024 ambulatory ABHI LOUIS [facility] Start: 03-25-2024 End: 03-25-2024 ambulatory [facility] Start: 03-25-2024 End: 03-25-2024 Encounter for preprocedural laboratory examination [facility] Start: 03-19-2024 ambulatory [facility] Start: 03-18-2024 End: 03-18-2024 ambulatory AUGUSTA SURESH Not Available Start: 03-18-2024 End: 03-18-2024 ambulatory CARMELITA ANTONY Not Available Start: 03-15-2024 End: 03-15-2024 ambulatory CARMELITA ANTONY Not Available Start: 03-12-2024 End: 03-12-2024 ambulatory CARMELITA ANTONY Not Available Start: 03-10-2024 End: 03-10-2024 ambulatory [facility] Start: 02-26-2024 End: 02-26-2024 ambulatory AUGUSTA SURESH Not Available Start: 02-25-2024 ambulatory [facility] Start: 02-12-2024 End: 02-12-2024 ambulatory AUGUSTA SURESH Not Available Start: 02-09-2024 Evaluation and management of inpatient DENIZ ROLDAN [facility] Start: 02-08-2024 Evaluation and management of inpatient LE [facility] Start: 02-08-2024 Emergency department patient visit [facility] Start: 02-08-2024 Emergency department patient visit [facility] Start: 02-08-2024 End: 02-09-2024 Evaluation and management of inpatient STACEY BOYD [facility] Start: 02-03-2024 End: 02-03-2024 ambulatory AUGUSTA SURESH Not Available Start: 01-28-2024 End: 01-28-2024 ambulatory AUGUSTA SURESH Not Available Start: 12-16-2023 End: 12-16-2023 ambulatory FLORECITA Aldo GREEN Not Available Start: 11-05-2023 End: 11-05-2023 ambulatory [...] PT Start: 09-04-2023 End: 09-04-2023 ambulatory Meme Breen PT Work Phone: [facility] Comment on above: Sacroiliac joint scooter n (Primary Dx); Lumbar paraspinal muscle spasm; Lumbar radiculopathy, chronic; Idiopathic scoliosis of thoracolumbar region Start: 09-01-2023 Bamboo flowsheet Meme Gunderson Nuha P T Work Phone: [facility] Start: 09-01-2023 Bamboo flowsheet Meme Gunderson Nuha P T Work Phone: [facility] Start: 09-01-2023 End: 09-01-2023 ambulatory Meme Breen PT Work Phone: [facility] Comment on above: Lumbar paraspinal mu scle spasm (Primary Dx); Sacroiliac joint pain; Lumbar radiculopathy, chronic; Idiopathic scoliosis of thoracolumbar region Start: 08-22-2023 End: 08-22-2023 Office outpatient visit 25 minutes Marquis WALTON Work Phone: [facility] Comment on above: Acute left-sided low back pain without sciatica (Primary Dx); Sacroiliac joint pain; Other idiopathic scoliosis, thoracolumbar region Start: 08-22-2023 End: 08-22-2023 ambulatory MARQUIS ANG Not Available Start: 08-21-2023 End: 08-21-2023 ambulatory AUGUSTA SURESH Not Available Start: 07-17-2023 End: 07-17-2023 ambulatory JULIO OLIVA Not Available Start: 07-02-2023 Office outpatient vi sit 25 minutes Meme Gong [facility] Start: 07-02-2023 Patient encounter procedure Marquis WALTON Work Phone: [facility] Start: 07-02-2023 End: 07-02-2023 ambulatory Meme Gong [facility] [employer] Other Start: 06-24-2023 End: 06-24-2023 ambulatory FLORECITA GREEN Not Available Start: 02-24-2023 End: 02-24-2023 ambulatory Jean Pierre Kim Facility:[facility] Start: 02-24-2023 End: 02-24-2023 ambulatory DO Jean Pierre Kim Work Phone: [facility] Work Phone: Start: 02-24-2023 End: 02-24-2023 Discharged Recurring DO Jean Pierre Kim Work Phone: [facility] [place] Work Phone: Start: 01-03-2023 End: 01-03-2023 ambulatory Jean Pierre Kim Facility:[facility] Start: 01-03-2023 End: 01-03-2023 ambulatory DO Jean Pierre Kim Work Phone: [facility] Work Phone: Start: 01-03-2023 End: 01-03-2023 Patient encounter procedure DO Jean Pierre Kim Work Phone: [facility]Electrodiagnostics Work Phone: Start: 01-03-[address] Jairo Downs [facility] ity:[id number] Start: 06-27-2022 Office outpatient vi sit 15 minutes [facility] Start: 06-27-2022 End: 06-27-2022 ambulatory DO Jean Pierre Kim Work Phone: [employer] Other Start: 06-27-2022 End: 06-27-2022 Patient encounter procedure DO Jean Pierre Kim Work Phone: [facility] [place] [facility] Start: 06-18-2022 End: 06-19-[address] JEAN PIERRE KIM Facility: Start: 05-09-2022 End: 05-09-2022 ambulatory DO Jean Pierre Kim Work Phone: [facility] Work Phone: Start: 05-09-2022 End: 10-20-2022 Discharged Recurring DO Jean Pierre Kim Work Phone: [facility] [place] Start: 03-11-2022 End: 03-11-2022 ambulatory Le Lam Other [employer] Other Start: 03-11-2022 Encounter for other preprocedural examination Le Lam [facility] [place] [facility] Start: 03-11-2022 Office outpatient vi sit 25 minutes Le [facility] [place] [facility] Start: 02-23-2022 End: 02-23-2022 Patient encounter procedure DO Jean Pierre Kim Work Phone: [facility] [place] Start: 02-19-2022 End: 02-19-2022 ambulatory Le Lam Other [employer] Other Start: 02-19-2022 Office outpatient vi sit 25 minutes Le Lam [facility] [place] [facility] Start: 02-19-2022 End: 02-19-2022 Patient encounter procedure DO Jean Pierre Kim Work Phone: [facility] [place] [facility] Start: 02-08-2022 End: 02-09-[address] [place] [id number] Florecita Green MD [address] [place] [address] [facility] Start: 11-05-2023 End: 11-05-2023 Patient encounter procedure 11/05/2023 9:45 AM EDT Office Visit [facility] [address] [place] [id number] Jean Pierre Kim DO [address] [place] [address] [facility] Start: 09-26-2023 End: 09-26-2023 Patient encounter procedure 09/26/2023 10:30 AM EST Office Visit [facility] [address] [place] [id number] Marquis Ang PA [address] [place] [address] [facility] Start: 09-24-2023 End: 09-24-2023 ambulatory 09/24/2023 11:30 AM EST Treatment [facility] [address] [place] [address] Meme Breen, PT [address] [place] [address] [facility] Start: 09-22-2023 End: 09-22-2023 ambulatory 09/22/2023 11:15 AM EST Treatment [facility] [address] [place] [address] eMme Breen, PT [address] [place] [address] [facility] Start: 09-19-2023 End: 09-19-2023 ambulatory 09/19/2023 11:15 AM EST Treatment [facility] [address] [place] [address] Meme Breen, PT [address] [place] [address] [facility] Start: 09-15-2023 End: 09-15-2023 ambulatory 09/15/2023 11:45 AM EST Treatment [facility] [address] [place] [address] Meme Breen, PT [address] [place] [address] [facility] Start: 09-12-2023 End: 09-12-2023 ambulatory 09/12/2023 11:15 AM EST Treatment [facility] [address] [place] [address] Meme Breen, PT [address] [place] [address] [facility] Start: 09-10-2023 End: 09-10-2023 ambulatory 09/10/2023 10:00 AM EST Treatment [facility] [address] [place] [address] Meme Breen, PT [address] [place] [address] [facility] Start: 09-04-2023 End: 09-04-2023 ambulatory [facility] Comment on above: Sacroiliac joint scooter n (Primary Dx); Lumbar paraspinal muscle spasm; Lumbar radiculopathy, chronic; Idiopathic scoliosis of thoracolumbar region Start: 09-01-2023 End: 09-01-2023 ambulatory 09/01/2023 2:00 PM EST Evaluation [facility] [address] [facility] [place] [address] Meme Breen, PT [address] [place] [address] Lumbar paraspinal muscle spasm (Primary Dx); Lumbar radiculopathy, chronic; Idiopathic scoliosis of thoracolumbar region; Acute left-sided low back pain without sciatica; Sacroiliac joint pain [facility] Comment on above: Lumbar paraspinal mu scle spasm (Primary Dx); Lumbar radiculopathy, chronic; Idiopathic scoliosis of thoracolumbar region; Acute left-sided low back pain without sciatica; Sacroiliac joint pain Start: 11-28-2022 Glaucoma screening Diabetes: R etinopathy Screening [facility] Start: 09-17-2022 Hemoglobin A1c measurement Diabetes: Hemoglobin A1C [facility] Start: 08-09-2022 Urine screening for protein Diabetes: Urine Protein Screening [facility] Start: 03-21-2022 Registered Recurring Registered Recu rring [facility] [place] Start: 02-23-2022 MRI of right shoulder MR shoulder RT wo con [facility] Start: 02-23-2022 End: 02-23-2022 Patient encounter procedure Departed Clinical [facility] [place] Start: 12-28-2019 Pneumococcal Vaccine : 65+ Years (3 - PPSV23 or PCV20) Pneumococcal Vaccine: 65+ Years (3 - PPSV23 or PCV20) [facility] Start: 12-28-2019 Pneumococcal Vaccine : 65+ Years (3 of 3 - PPSV23 or PCV20) Pneumococcal Vaccine: 65+ Years (3 of 3 - PPSV23 or PCV20) [facility] Start: 1950 Screening for malign ant neoplasm of colon [facility] XR Hip - left 3 Views XR hip lef t 2 or 3 views Imaging Routine Sacroiliac joint pain 08/22/2023 11:02 AM EST [facility] Work Phone: XR Lumbar spine View s W flexion and W extension XR lumbar spine 4+ views w flexion extension Imaging Routine Acute left-sided low back pain without sciatica 08/22/2023 11:02 AM EST [facility] Immunizations Immunization Date Immunization Notes Care Provider Fa cili 05-16-2023 zoster vaccine recombinant Marquis WALTON Work Phone: [facility] 04-11-2023 Influenza, Seasonal, Quadrivalent, Adjuvanted Marquis WALTON Work Phone: [facility] 03-12-2023 zoster vaccine recombinant Maruqis WALTON Work Phone: [facility] 06-13-2021 COVID-19 mRNA, Hoangir sam (Pfizer) DO Jean Pierre Kim Work Phone: [facility] 10-19-2020 Do not use COVID-19 Pfizer 2 dose Le Olexa Other [facility] 09-29-2020 Do not use COVID-19 Pfizer 2 dose Le Olexa Other [facility] 01-19-2018 pneumococcal conjuga te vaccine, 13 valent Marquis WALTON Work Phone: [facility] 11-07-2016 tetanus toxoid, redu murray diphtheria toxoid, and acellular pertussis vaccine, adsorbed Marquis WALTON Work Phone: [facility] Work Phone: 12-27-2014 pneumococcal polysaccharide vaccine, 23 valent Marquis WALTON Work Phone: [facility] Payers Date Payer Category Payer Self-pay [id number] 2022 Private Health Insurance [employer] [id number] 2022-Present [address] [address] [place] [address] Supplement [id number] 2017 Medicare MEDICARE MEDICAR E PART B [id number] 2017-Present [address] [address] [place] [address] Medicare [id number] 1959 Medicare [id number] 2.16.840.1.847172.19 1959 Private Health Insurance [id number] 2.16.840.1.418947.19 1959 Private Health Insurance [id number] 1959 Unknown 1952 Unknown [id number] 2.16.840.1.241554.3.579.2. 593 1952 Unknown [id number] 2.16.840.1.316638.3.579.2. 593 1952 Unknown [id number] 2.16.840.1.743402.3.579.2. 593 1952 Unknown [id number] 2.16.840.1.464645.3.579.2. 593 1952 Unknown [id number] 2.16.840.1.808454.3.579.2. 593 1952 Unknown [id number] 2.16.840.1.701518.3.579.2. 356 1952 Unknown [id number] 2.16.840.1.869397.3.579.2. 1259 1952 Unknown [id number] 2.16.840.1.341728.3.579.2. 1259 1952 Unknown [id number] 2.16.840.1.878253.3.579.2. 1258 1952 Unknown [id number] 2.16.840.1.844944.3.579.2. 1258 1952 Unknown [id number] 2.16.840.1.438132.3.579.2. 1258 1952 Unknown [id number] 2.16.840.1.616244.3.579.2. 1258 1952 Unknown [id number] 2.16.840.1.761944.3.579.2. 1258 1952 Unknown [id number] 2.16.840.1.942486.3.579.2. 1258 1952 Unknown [id number] 2.16.840.1.051882.3.579.2. 1258 1952 Unknown [id number] 2.16.840.1.103323.3.579.2. 1258 1952 Unknown [id number] 2.16.840.1.336844.3.579.2. 1258 1952 Unknown [id number] 2.16.840.1.212195.3.579.2. 1258 1952 Unknown [id number] 2.16.840.1.658070.3.579.2. 1258 1952 Unknown [id number] 2.16.840.1.510844.3.579.2. 1258 1952 Unknown [id number] 2.16.840.1.437326.3.579.2. 1258 1952 Unknown [id number] 2.16.840.1.207629.3.579.2. 1258 1952 Unknown [id number] 2.16.840.1.396686.3.579.2. 1258 1952 Unknown [id number] 2.16.840.1.732447.3.579.2. 1258 1952 Unknown [id number] 2.16.840.1.024864.3.579.2. 1258 1952 Unknown [id number] 2.16.840.1.606849.3.579.2. 1258 1952 Unknown [id number] 2.16.840.1.794511.3.579.2. 1258 1952 Unknown [id number] 2.16.840.1.024225.3.579.2. 1258 1952 Unknown [id number] 2.16.840.1.877377.3.579.2. 1258 1952 Unknown [id number] 2.16.840.1.088469.3.579.2. 1258 1952 Unknown [id number] 2.16.840.1.649226.3.579.2. 1258 1952 Unknown [id number] 2.16.840.1.093621.3.579.2. 1258 1952 Unknown [id number] 2.16.840.1.113676.3.579.2. 1258 1952 Unknown [id number] 2.16.840.1.013144.3.579.2. 1258 1952 Unknown [id number] 2.16.840.1.382016.3.579.2. 1258 1952 Unknown [id number] 2.16.840.1.157734.3.579.2. 1258 1952 Unknown [id number] 2.16.840.1.377940.3.579.2. 125 Unknown [facility] [id number] Unknown [id number] 2.16.840.1.593341.3.579.2. 531 Unknown [id number] 2.16.840.1.533507.3.579.2. 531 Unknown [id number] 2.16.840.1.314327.3.579.2. 531 Social History Date Type Detail Facility Unknown if ever smoked [facility] Start: 07-02-2023 End: 08-22-2023 Sex Assigned At [facility] Start: 12-10-2021 End: 02-26-2023 Tobacco smoking status NHIS Ex-smoker (finding) [facility] Start: 1950 Sex Assigned At Female F [facility] Start: 07-21-1969 End: 07-21-1995 History of tobacco use Current smoker [facility] Start: 07-21-1969 End: 07-21-1995 History of tobacco use Cigarette Smoker [facility] Start: 02-26-2023 End: 07-02-2023 Cigarettes smoked current (pack per day) - Reported 1 [facility] History of tobacco use Passive smoker [facility] Start: 02-26-2023 Tobacco use and exposure Smokeless tobacco non-user [facility] Start: 08-22-2023 Alcohol intake Ex-drinker (finding) [facility] How often to you hav e a drink containing alcohol? Monthly or less [facility] How many standard drinks containing alcohol do you have on a typical day? 1 or 2 [facility] How often do you hav e 6 or more drinks on 1 occasion? Never [facility] Start: 12-08-2022 Tobacco Comment Past smoking h x unknown [facility] Start: 12-08-2022 Alcohol Comment caffeine: 2-3 cups per day coffee, tea [facility] Start: 12-04-2022 Gender identity Identifies as female gender (finding) [facility] Medical Equipment Procedure Code Equipment Code Equipment Origin al Text Equipment Identifier Dates One test strip b y finger stick once daily [id number] Start: 12-19-2022 Clinical Notes 11-18-2009 to 04-14-2024 Meme Breen PT - 09/04/2023 11:15 AM ESTISABELLE Phelps - 08/22/2023 10:30 AM EST Note Date & Type Note Facility 04-14-2024 Note Orthopedic Surgery 03/25/2024 Middle Finger Extensor Tendon Repair - Right Christina Welsh comes in for a post-operative visit after having a right Long finger extensor repair done on 03/25/2024. she comes in today because she is a bit concerned about the way the wound looks and the finger is still flexed. Her brace is not really holding the finger straight anymore because the swelling went down. Physical Exam: The incision site is healing well. There is mild erythema, but no drainage or signs of infection. Tenderness is mild and localized to the surgical site. Sensation is present to light touch. Range of motion today shows that the finger still wrist flexed about 40 degrees. Even in her splint it is flexed about 10 or 15 degrees there is clearly room to get more extension with her splint.. Assessment: Christina Welsh is a 73 y.o. year old female with An extensor lag after an open dislocation of the PIP joint right long finger Plan: Right now and not too concerned about the infection, that looks to be improved. I am going to see if the occupational therapist can remold her splint to get a bit more extension at the PIP joint. I am hoping that the extensor mechanism will scarred together. [facility] 04-06-2024 Note Occupational Therapy Orthosis/Splint Evaluation Patient Name: Christina Welsh Today's Date: 04/08/2024 Treatment time in: 3:15 pm Treatment time out: 3:40 pm Eval time: 10 min Orthosis/splint fabrication time: 15 min Cumulative therapy: 25 minutes Diagnosis: S/P Surgical repair R LF central slip, chronic extensor lag Onset date/date of surgery: 03/25/24 Referring practitioner: Dr. Roldan Date of last MD visit: 04/06/24 Services requested: OT evaluation and custom orthosis fabrication SUBJECTIVE Patient reports she was initially injured February 08, 2024 when her R LF was nearly amputated after it was caught in her dog's collar. Sutures just removed today prior to her arrival. Relevant symptoms: pain in R LF, decreased ROM in R LF, decreased strength in R LF, and R LF healing after suture removal. Mechanism of injury/history of symptoms: Trauma Previous level of function: independent in ADL's OBJECTIVE Hand dominance: Right After initial evaluation, completed fabrication of custom R LF PIP extension orthosis, ensuring good fit and mobility of all allowed joints. DIP of the R LF was left free to allow lateral band stretches with isolated DIP flexion. Ed pt re: technique for donning/doffing, wearing schedule (at all times), and care of orthosis. By end of session, pt demo I with donning/doffing, and had all questions/concerns re: orthosis addressed. Pt provided with occupational therapy contact number and instructed to call/return to clinic for adjustments if necessary. ASSESSMENT/PLAN Summary/Analysis: Good fit of the orthosis. Both velcro strapping and coban were provide to secure the orthosis in place, Patient was able to don/doff the orthosis independently and all concerns were addressed prior to leaving the clinic. Prognosis to achieve goals: good Treatment plan with rationale: Splinting to provide support and protection to the joint Occupational Therapy Goals: Resolved STG - Patient will have a comprehensive OT hand therapy orthosis evaluation completed. MET Start: 04/08/24 Expected End: 04/08/24 Resolved: 04/08/24 STG - Patient will have all questions and concerns relating to the custom orthosis addressed prior to leaving the clinic. [facility] Start: 04/08/24 Expected End: 04/08/24 Resolved: 04/08/24 Recommendations: Custom orthosis fabrication/education has been completed, no indicated need for further OT intervention. Pt is now discharged from OT services. Reason for plan status: Patient achieved goals [facility] 04-06-2024 Note [id number] Hung Welsh 1950 F Date Provider Department Center 04/06/2024 [id number] [place] OT Medical Pavi No family history on file [facility] 04-06-2024 Note Orthopedic Surgery 03/25/2024 Middle Finger Extensor Tendon Repair - Right Christina Welsh comes in for a post-operative visit after having a right long finger extensor repair done on 03/25/2024. Today she is doing well and has no unexpected complaints. Physical Exam: The incision site is healing well. There is no erythema, drainage or signs of infection. Tenderness is mild and localized to the surgical site. Sensation is present to light touch. Range of motion is appropriate for this time. Assessment: Christina Welsh is a 73 y.o. year old female with extensor tendon injury Plan: The sutures were removed in the clinic today. I instructed her on how to do scar massage and then apply lotion to the incisional site. I am going to send her down to occupational therapy to have a boutonniere type splint made. Instructions were given on activity restrictions until the next appointment. We will see her back in the clinic 4 wks. [facility] 03-25-2024 Note Patient: Christina aguila Procedure Summary Date: 03/25/24 Room / Location: [address] [facility] OR Anesthesia Start: 1217 Anesthesia Stop: 1314 Procedure: MIDDLE FINGER EXTENSOR TENDON REPAIR (Right: Middle Finger) Diagnosis: Tendon pain (Tendon pain [M79.10]) Surgeons: Deniz Roldan MD Responsible Provider: Thompson Ospina MD Anesthesia Type: MAC ASA Status: 2 Anesthesia Type: MAC Vitals Value Taken Time BP 125/66 03/25/24 1311 Temp 36 ???C (96.8 ???F) 03/25/24 1311 Pulse 81 03/25/24 1311 Resp 14 03/25/24 1311 SpO2 99 % 03/25/24 1311 Anesthesia Post Evaluation Patient location during evaluation: PACU Patient participation: complete - patient participated Level of consciousness: awake Pain score: 1 Pain management: adequate Airway patency: patent Cardiovascular status: acceptable Respiratory status: acceptable Patient is hemodynamically stable and is able to be discharged from PACU per anesthesia protocol. No notable events documented. [facility] 03-25-2024 Note Patient: Christina aguila Procedure Summary Date: 03/25/24 Room / Location: [address] [facility] [place] Anesthesia Start: 1217 Anesthesia Stop: 1314 Procedure: MIDDLE FINGER EXTENSOR TENDON REPAIR (Right: Middle Finger) Diagnosis: Tendon pain (Tendon pain [M79.10]) Surgeons: Deniz Roldan MD Responsible Provider: Thompson Ospina MD Anesthesia Type: MAC ASA Status: 2 Anesthesia Post Transport Note Transport to: [facility] PAC[facility] O2 Route: room air Patient Monitor: direct observation Transport: uneventful Patient condition is: stable Comments: Patient arousable, VSS, SV well, report to RN [facility] 03-25-2024 Note Patient: Christina aguila Procedure Information Date/Time: 03/25/24 1200 Procedure: MIDDLE FINGER EXTENSOR TENDON REPAIR (Right: Middle Finger) - REQUEST AFTERNOON START Location: [address] OR Surgeons: Deniz Roldan MD Relevant Problems Anesthesia (within normal limits) METs > 4 without SOB or CP Cardio Denies chest pain/SOB. No previous cardiac interventions. Endo oral hypoglycemics FBS -- mg/dl (+) Diabetes mellitus, type 2 (CMS/HCC) /Renal Cr 0.6 on 02/08/24 Neuro/Psych (within normal limits) Pulmonary (within normal limits) Clinical information reviewed: Tobacco Allergies Meds Med Hx Surg Hx Fam Hx Soc Hx Physical Exam Airway Mallampati: II TM distance: >3 FB Neck ROM: full Cardiovascular - normal exam Dental - normal exam Pulmonary - normal exam Abdominal Anesthesia Plan ASA 2 MAC (Discussed risks and benefits for anesthesia plan of MAC with standard ASA monitoring and back up plan to GETA if indicated with peripheral nerve block. All questions answered. Patient verbally acknowledged understanding of risks and benefits. Patient agreeable to the plan and wishes to proceed. ) The patient is not a current smoker. Patient was previously instructed to abstain from smoking on day of procedure. Patient did not smoke on day of procedure. Education provided regarding risk of obstructive sleep apnea. intravenous induction Anesthetic plan and risks discussed with patient. Use of blood products discussed with patient who consented to blood products. Plan discussed with attending. Additional Equipment Requests [facility] 03-19-2024 Note Orthopedic Surgery 02/09/2024 I&d, Pinning Right Long Finger - Right, Repair, Extensor Tendon, Finger - Right, and Repair, Ligament, Ulnar Collateral - Right Christina Welsh comes in for a post-operative visit after having a right long finger extensor and collateral ligament repair done on 02/09/2024. she comes in for an unplanned visit because she is concerned about a possible infection. She has been on antibiotics and states that it has not changed much. Physical Exam: The Laceration is well-healed. There is some swelling around the PIP extending proximally to the MP webspace level. There is no fluctuance, but there is some erythema on the skin that she states has been unchanged for a week or so. Tenderness is mild and localized to the surgical site. Sensation is present to light touch. Range of motion is Significantly limited. She has a 60 degree extension lag at the PIP joint. Assessment: Christina Welsh is a 73 y.o. year old female with Persistent swelling and some erythema after an open dislocation of the PIP joint right long finger Plan: clinically I am not certain that there is an actual infection going on. There is certainly insufficiency of the extensor mechanism. The collateral ligament that we fixed is stable. We talked about a couple of options. She is really concerned and I think it would be worth just opening this up and making sure there is no sign of infection. At the very least the extensor mechanism needs to be addressed as she has no active PIP extension. She has another day or 2 worth of antibiotics left. I told her to finish up her current dose and then stopped taking them. We will get her set up for next to do a repair of the extensor mechanism and evaluate to see if there is any infection that is present. [facility] 03-10-2024 Note Orthopedic Surgery 02/09/2024 I&d, Pinning Right Long Finger - Right, Repair, Extensor Tendon, Finger - Right, and Repair, Ligament, Ulnar Collateral - Right Christina Welsh comes in for a post-operative visit after having a right long finger central slip and collateral ligament repair done on 02/09/2024. Today she is doing well and has no unexpected complaints. Physical Exam: The incision site is healing well. There is no erythema, drainage or signs of infection. Tenderness is mild and localized to the surgical site. Sensation is present to light touch. Range of motion is appropriate for this time. Assessment: Christina Welsh is a 73 y.o. year old female with an open PIP dislocation of the R long finger. Plan: Her pin was pulled in clinic today without difficulty. I will have her begin working on range of motion. I like to see her back in 6 weeks to make sure she is getting back to normal. [facility] 02-25-2024 Note Orthopedic Surgery 02/09/2024 I&d, Pinning Right Long Finger - Right, Repair, Extensor Tendon, Finger - Right, and Repair, Ligament, Ulnar Collateral - Right Christina Welsh comes in for a post-operative visit after [...] is appropriate for this time. Assessment: Christina Welsh is a 73 y.o. year old female [...] prescription for Keflex just to be safe.. [facility] 02-09-2024 Note Clinician attempted to [...] limits. No intervention needed at this time. 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 No Screened by [facility]. Per SS consult order for HHC/wound care, sent referral to [facility] await reply. Per Audit C gave pt chemical dependency referral list, [facility] treatment resources and rethinking drinking resource. Await reply from [facility]. Pt has DC orders. [facility] reported pt is teachable for her wound care. Pt was Dc'd yesterday to home. Received call from [facility] awaiting AVS/DC order. Faxed AVS to [facility] this morning. They will arrange start of care. [facility] 02-09-2024 Note Patient: Christina aguila Procedure Summary Date: 02/09/24 Room / Location: [facility] OR [address] [place] [address] OR Anesthesia Start: 1328 Anesthesia Stop: 1428 Procedures: I&D, PINNING RIGHT LONG FINGER (Right: [...] per anesthesia protocol. No notable events documented. [facility] 02-09-2024 Note Pt off floor. Clinic sabi will attempt JOSIAH intervention at another time [facility] 02-09-2024 Note Patient: Christina aguila Procedure Information Date/Time: 02/09/24 1530 Procedure: I&D HAND/WRIST (Right: Hand) Location: [facility] OR [address] [place] [address] OR Surgeons: Deniz Roldan MD Relevant Problems [...] Plan discussed with [facility]AA. Additional Equipment Requests [facility] 02-09-2024 Note 02/09/24 0952 Admission Assessment Questions Verify insurance with patient Yes Do you understand medical disease or what brought you into the hospital? Yes Who is your current PCP? No PCP listed. Nicholas Mcgee [facility] updated in [employer] Can I schedule a follow up appointment for you at the time of discharge? Yes Do you understand why you are taking your current medications? Yes Are you taking your medications as prescribed? Yes Did patient provide teach back? Yes Pharmacy Bedside Delivery Status Interested Does the patient have a case folder assigned to them through their insurance? No [...] you able to send link and activate MyChart? MyChart already active [facility] 02-09-2024 Note Physical Therapy Name: Christina Welsh Date of : 1950 Today's Date: 02/09/24 [...] this time. Check No Charge Time attempted: 85Mac Hardwick, PT [facility] 02-09-2024 Note Attestation signed by [...] procedure. Toma Grover MD Orthopedic Surgery, PGY-1 [facility] 02-09-2024 Note Attestation signed by [...] for the past 24 hours ASSESSMENT: Christina Welsh is a 73 y.o. female with an [...] Daniel MD Orthopaedic Surgery, PGY-2 Ortho Pager [phone] 02/09/24 6:57 AM I am available via [employer] 6a-6p. May contact the on-call resident with any concerns via the Orthopaedic pager at any time. [facility] 02-08-2024 Note HPI No chief complaint on file. Initial evaluation completed by Dr. Plascencia at 1845. Christina Welsh is a 73 y.o. y/o female presenting to the ED with c/o open fracture of right middle finger. Pt is a transfer from [place] for an orthopedic consult concerned for an [...] of finger, initial encounter Medical Decision Making IFabrizio, documented on behalf of Dr. Plascencia. Chief complaint open fracture to right middle finger. Differential Diagnosis includes but is not limited to extensor tendon laceration, open fracture, dislocation. Plan of Care: XR hand 3+ views right, CBC and differential, Vitamin D 25 hydroxy, CBC auto differential, Type and screen, Inpatient Consult to Orthopaedic Surgery, morphine injection 4 mg (has no administration in time range) Imaging reviewed by Dr. Le Plascencia DO. Radiology reports noted and agreed with as [...] Procedure Abnormality Status --------- ------ CBC auto differential[[id number]] Normal Final result Please view results for [...] or pleural effu (more content not included)... 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 Pain/stiffness throughout spine up to 09/27 today. Denies pain post session. Reviewed and progressed exercises without issue. Remains appropriate per PT POC Plan: Recommend outpatient PT 1-3 times/week for up to 8 weeks per above PT POC pending patient progress and medical necessity standards (09/01/23-DBO) I hereby deem this POC medically necessary. Please sign below and fax back to the number below. Physician Signature: Date: documented in this encounter [facility] 08-22-2023 History of Present illness Narrative [...] XRAY LUMBAR SPINE 02/07/23 CHANGE NO MRI BROTH MIXER FOR YRS NO CORTISONE INJ NO MDP/PREDNISONE [...] evaluation. ISABELLE Phelps documented in this encounter [facility] 07-02-2023 Evaluation note Encounter Date Diagnosis [...] sleepiness, or poor response to treatment. . [facility] 12-08-2022 Evaluation note* Encounter Date Diagnosis [...] pain of right shoulder (ICD-10 - M25.511) [facility] 09-13-2022 NoteHISTORY: Bone density screening. COMPARISON: [...] and signed by Abhi Jefferson on 04/02/2022 [facility] Encounter Date Diagnosis Assessment [...] S43.003A) Feb, Pre-op exam (ICD-10 - Z01.818) [facility] 08-02-2022 Evaluation note* Encounter Date Diagnosis [...] plan further treatment options and potential surgey. [facility] 05-06-2022 NoteHISTORY: Dizziness, headaches PROCEDURE: [facility] VCT 64. Without IV contrast, images of [...] signed by Donald Jeter on 11/23/2021 1544[facility] [id number] History general Narrative - Reported* Type Description Date Medical History type II diabetes Medical History no thyroid Surgical History left wrist 11/2009 Surgical History knee arthroscopy 2005 Surgical History hysterectomy 07/2012 Surgical History thyroidectomy, complete Hospitalization History see above [facility] Other 05-01-2010 History general Narrative - Reported* Type Description Date Medical History type II diabetes Medical History no thyroid Medical History Obstructive sleep apnea Medical History GERD Surgical History left wrist 11/2009 Surgical History knee arthroscopy 2005 Surgical History hysterectomy 07/2012 Surgical History thyroidectomy, complete Hospitalization History see above [facility] Other Evaluation noteNo assessment information available [facility] Work Phone: Evaluation note* Diagnosis Acute left-sided low back pain without sciatica- Primary Sacroiliac joint pain Disorders of sacrum Other idiopathic scoliosis, thoracolumbar region documented in this encounter [facility]* Diagnosis Lumbar paraspinal muscle spasm- Primary Other symptoms referable to back Sacroiliac joint pain Disorders of sacrum Lumbar radiculopathy, chronic Idiopathic scoliosis of thoracolumbar region documented in this encounter [facility] Healthcare[facility] note* Diagnosis Sacroiliac joint pain- Primary Disorders of sacrum Lumbar paraspinal muscle spasm Other symptoms referable to back Lumbar radiculopathy, chronic Idiopathic scoliosis of thoracolumbar region [facility] Consultation (Routine) - Authorized Specialty Diagnoses / Procedures Referred By Agustin t Referred To Contact Physical Therapy Diagnoses Acute left-sided low back pain without sciatica Sacroiliac joint pain Procedures [place] OFFICE/OUTPATIENT [facility] 60 MINUTES Marquis Ang PA [address] [address] Meme Breen, PT [address] [place] [address] Referral ID Status Reason Start Date Expiration Date Visits Requested Visits Authorized [id number] Authorized Consult and Treat 08/22/2023 02/18/2024 10 10 * Consultation (Routine) - Pending Review Specialty Diagnoses / Procedures Referred By Agustin t Referred To Contact Pain Medicine Diagnoses Acute left-sided low back pain without sciatica Procedures [place] OFFICE/OUTPATIENT [facility] 60 MINUTES Marquis Ang PA [address] [facility] [address] [place] [address] Roxane Rockwell MD [address] [place] [address], [address], [address] [place] [address] Referral ID Status Reason Start Date Expiration Date Visits Requested Visits Authorized [id number] Pending Review Specialty Services Required 08/22/2023 02/18/2024 1 1 Scheduling Instructions Referral to Dr. Coburn @ [facility]- Possible Lt SI inj; please call [...] pain without sciatica Sacroiliac joint pain Procedures [place] OFFICE/OUTPATIENT [facility] 60 MINUTES Marquis Ang PA [address] [facility] [address] [place] [address] Meme Breen, PT [address] [place] [address] Referral ID Status Reason Start Date Expiration Date Visits Requested Visits Authorized [id number] Authorized Consult and Treat 08/22/2023 02/18/2024 30 [...] Pierre Kim DO Primary Care Provider Active Ning Valladares NP-C Attending Provider Acti ve Team Status: Inactive Member Role Status Dates Jean Pierre Kim , Primary Care Provider Active MARILYN WheelerC Attending Provider Active Emotional Disabilities Teacher Relationship Specialty Start Date End Date Jean Pierre Kim DO [address] [place] [address] PCP - ACO Reach 12/12/22 Jean Pierre Kim DO [address] [place] [address] PCP - General Internal Medicine 08/21/23 Meme Gong MD [address] [place] [address] Referring Physician Sleep Medicine 07/02/23 Emotional Disabilities Teacher Relationship Specialty Start Date End Date Jean Pierre Kim DO [address] [place] [address] PCP - ACO Reach 12/12/22 Jean Pierre Kim DO [address] [place] [address] PCP - General Internal Medicine 08/21/23 Meme Gong MD [address] [place] [address] Referring Physician Sleep Medicine 07/02/23 Emotional Disabilities Teacher Relationship Specialty Start Date End Date Jean Pierre Kim DO [address] [place] [address] PCP - ACO Reach 12/12/22 Jean Pierre Kim DO [address] [place] [address] PCP - General Internal Medicine 08/21/23 Meme Gong MD [address] [place] [address] Referring Physician Sleep Medicine 07/02/23 Emotional Disabilities Teacher Relationship Specialty Start Date End Date Jean Pierre Kim DO [address] [place] [address] PCP - ACO Reach 12/12/22 Jean Pierre Kim DO [address] [place] [address] PCP - General Internal Medicine 08/21/23 Meme Gong MD [address] [place] [address] Referring Physician Sleep Medicine 07/02/23 Goals (unrecognized section and content) Goals may be documented in a n alternate section INFORMATION SOURCE (unrecogn ized section and content) DATE CREATED AUTHOR 04/03/2022 [facility] dical Specialist DATE CREATED AUTHOR AUTHOR'S ORGANIZ ATION 06/22/2022 [facility] DATE CREATED AUTHOR AUTHOR'S ORGANIZ ATION 03/26/2023 [facility] DATE CREATED AUTHOR AUTHOR'S ORGANIZ ATION 07/26/2023 [facility] DATE CREATED AUTHOR AUTHOR'S ORGANIZ ATION 04/11/2024 [facility] dical Specialists [facility] DATE CREATED AUTHOR AUTHOR'S ORGANIZ ATION 04/18/2024 [facility] FOR RECORDS PERTAINING TO PATIENTS WHO [...] BE BASED ON THE PRIMARY CLINICAL RECORDS. [facility] [employer] [facility]. provides no warranty or guarantee of the accuracy or completeness of information in this document.
[2024-04-20 09:25] LABS: Estimated Average Glucose 111 mg/dL; Glycohemoglobin A1C 5.5 % (4.5-6.2)
[2024-04-20 09:54] LABS: Free T4 0.96 ng/dL (0.76-1.46)
[2024-04-20 09:58] LABS: Alanine Aminotransferase 20 U/L (14-59); Albumin Globulin Ratio 1.1; Albumin Level 3.3 g/dL (3.4-5.0); Alkaline Phosphatase 63 U/L (46-116); Anion Gap 10.6; Aspartate Amino Transferase 10 U/L (15-37); BUN Creatinine Ratio 17.9; Bilirubin Total 0.5 mg/dL (0.2-1.0); Calcium 8.7 mg/dL (8.5-10.1); Carbon Dioxide 29.5 mmol/L (21.0-32.0); Chloride 103 mmol/L (98-107); Chol HDL Ratio 3.1; Cholesterol 203 mg/dL (<=200); Estimated GFR (African America >60 (>=60); Estimated GFR (Non-African Ame >60 (>=60); Free T3 2.39 pg/mL (2.18-3.98); Globulin 2.9 g/dL; Glucose 87 mg/dL (74-106); HDL Cholesterol 66 mg/dL (40-60); Potassium 4.1 mmol/L (3.5-5.1); Sodium 139 mmol/L (136-145); Thyroid Stimulating Hormone 0.245 uIU/mL (0.358-3.740); Total Protein 6.2 g/dL (6.4-8.2); Triglycerides 97 mg/dL (<=150); VLDL CHOLESTEROL 19.4 mg/dL
[2024-04-20 11:09] LABS: Creatinine Urine Random 58.49 mg/dL (20.00-300.00); Microalbum Creatinine Ratio Ur 22.2 mg/g (0.0-29.9); Microalbumin Urine Random <1.3 mg/dL (<=30.0)
== END 2024-04-20 08:52 | disposition home or self-care (01) ==
LOC: LAB 08:51
PROVIDERS: PCP Internal Medicine; Visit Provider Internal Medicine
DX: K58.1 Irritable bowel syndrome with constipation (principal); E11.618 Type 2 diabetes mellitus with other diabetic arthropathy; E78.01 Familial hypercholesterolemia; E89.0 Postprocedural hypothyroidism; C73 Malignant neoplasm of thyroid gland
CPT/HCPCS: 36415; 80053; 80061; 82043; 82570; 83036; 84439; 84443; 84481; 85025

== ENCOUNTER 2024-08-18 08:00 | Outpatient (OUT) | payer MEDICARE, SELFPAY ==
--- OUTSIDE RECORDS SUMMARY | 2024-08-18 08:05 | XMS_ITS | CCD ---
Author Organization [facility] Care Team Providers Care Mattress Filler Name Role Phone Le Lam Unavailable DO Jean Pierre Kim Primary Care Provider MD Le Lam Attending Provider [phone] JULIO, DR MORAN Primary Care Unavailable JULIO, DR MORAN Admitting Unavailable JULIO, DR MORAN Attending Unavailable JULIO, DR MORAN Consulting Unavailable JULIO, DR MORAN Primary Care Unavailable ISABELLE MOON Consulting Unavailable HERMES, DR DAO Attending Unavailable HERMES, DR DAO Admitting Unavailable MALAIKA NORTH Consulting Unavailable JOSIE, BERKLEY Consulting Unavailable JULIO, DR MORAN Primary Care [...] DO Jean Pierre Kim Primary Care Provider [phone] MD Le Lam Attending Provider [phone] DO Jean Pierre Kim Primary Care Provider [phone] ANGEL Valladares Attending Provider Dr. Jairo Downs [...] Jean Pierre Kim DO Primary Care Provider [phone] YULI, DENIZ Attending Unavailable SKIE, DENIZ Attending Unavailable TEMO, LE Referring Unavailable SKIE, DENIZ Attending Unavailable SKIE, DENIZ Attending Unavailable SKIE, DENIZ Referring Unavailable SKIE, DENIZ Referring Unavailable RUHE, ANDERSON Attending Unavailable SKIE, DENIZ Attending Unavailable SKIE, DENIZ Referring Unavailable TEMO, LE Referring Unavailable SKIE, DENIZ Referring Unavailable TEMO, LE Referring Unavailable TEMO, LE Referring Unavailable SKIE, DENIZ Referring Unavailable OSTENABHI Attending Unavailable SKIE, DENIZ Referring Unavailable RUHE, ANDERSON Attending Unavailable SKIE, DENIZ Attending Unavailable SKIE, DENIZ Attending Unavailable SKIE, DENIZ Admitting Unavailable SKIE, DENIZ Attending Unavailable SKIE, DENIZ Admitting Unavailable SKIE, DENIZ Attending Unavailable DIABSTACEY Referring Unavailable SKIE, DENIZ Attending Unavailable REXROADLYNNETTE Attending Unavailable SKIE, DENIZ Mcadams Referring Unavailable MCNAIR, AUGUSTA Modi Attending Unavailable JULIO OLIVA Referring Unavailable ANG, [...] Referring Unavailable JEAN PIERRE KIM Attending Unavailable FLORECITA GREEN Attending Unavailable AUGUSTA MCNAIR Attending Unavailable AUGUSTA MCNAIR Attending Unavailable JULIO OLIVA Attending Unavailable AUGUSTA MCNAIR Attending Unavailable AUGUSTA MCNAIR Attending Unavailable CASSIA, ALECIA Attending Unavailable DENIZ ROLDAN Referring Unavailable BLACKSTON, ALECIA Attending Unavailable DENIZ ROLDAN Referring Unavailable BLACKSTON, ALECIA Attending Unavailable SKIE, DENIZ Mcadams Referring Unavailable AUGUSTA MCNAIR Attending Unavailable AUGUSTA MCNAIR Attending Unavailable JEAN PIERRE KIM Attending Unavailable BRITTON, ALECIA Attending Unavailable SKIEDENIZ Referring Unavailable BLACKSTON, ALECIA Attending Unavailable SKIEDENIZ Referring Unavailable BLACKSTON, ALECIA Attending Unavailable SKIEDENIZ Referring Unavailable BLACKSTON, ALECIA Attending Unavailable SKIE, DENIZ Mcadams Referring Unavailable REXROAD, LYNNETTE Attending Unavailable SKIE, DENIZ Mcdaams Referring Unavailable BLACKSTON, ALECIA Attending Unavailable SKIE, DENIZ Mcadams Referring Unavailable REXROAD, LYNNETTE Attending Unavailable SKIDelvis, DENIZ Mcadams Referring Unavailable REXROAD, LYNNETTE Attending Unavailable SKIDelvis, DENIZ Mcadams Referring Unavailable REXROAD, LYNNETTE Attending Unavailable DENIZ ROLDAN Referring Unavailable Allergies Allergy Classification Reported Allergen(s) Allergy Type Date of Onset Reaction(s) Facility (20 sources) buPROPion Drug Allergy 03-20-2023 [facility] (1 source) buPROPion; Translations: [BUPROPION HCL] Drug Allergy 02-08-2024 [facility] Repository Medications Current Medications Medication Drug Class(es) Dates Sig (Normalized) Sig (Original) ascorbic acid 1000 mg oral tablet (6 sources) Vitamin C Ascorbic Acid (vitamin C) 1000 MG tablet 1 (one) time each day at the same time. 0 Active atorvastatin 40 mg oral tablet (20 sources) HMG-CoA Reductase Inhibitor Start: 12-10-2021 atorvastatin (Lipitor) 40 MG tablet Indications: LDL (low density lipoprotein receptor disorder) ([facility]) TAKE 1 TABLET EVERY MORNING 90 tablet 3 07/20/2024 Active Berberine Complex (4 sources) Berberine Comple x Active betamethasone 0.0005 mg/mg topical ointment (20 sources) Corticosteroid Start: 06-24-2023 betamethasone dipropionate (Diprolene) 0.05 % ointment Indications: Other atopic dermatitis Apply to affected areas, up to twice a day when flared, do not use one the face, groin, or underarms, 30 day supply 45 g 11 06/24/2023 Active busPIRone hydrochloride 5 mg oral tablet (20 sources) Start: 08-06-2023 End: 08-05-2024 busPIRone (Buspar) 5 MG tablet Indications: Anxiety Take 1 tablet (5 mg) by mouth in the morning and 1 tablet (5 mg) at noon and 1 tablet (5 mg) in the evening and 1 tablet (5 mg) before bedtime. 360 tablet 3 07/26/2024 Active busPIRone HCl 5 MG Oral for 10 Days Active cyclobenzaprine hydrochloride 5 mg oral tablet (20 sources) Muscle Relaxant Start: 06-23-2024 take 1 tablet by mouth in the morning cyclobenzaprine (Flexeril) 5 MG tablet Indications: Muscle spasm Take 1 tablet (5 mg) by mouth in the morning and 1 tablet (5 mg) before bedtime. 180 tablet 3 06/23/2024 Active Start: 04-05-2024 take 1 tablet by alec th in the morning cyclobenzaprine (Flexeril) 5 MG tablet Indications: Muscle spasm Take 1 tablet (5 mg) by mouth in the morning and 1 tablet (5 mg) before bedtime. 180 tablet 3 04/05/2024 Active Start: 08-11-2023 take 1 tablet by alec th in the morning cyclobenzaprine (Flexeril) 5 MG tablet Indications: Muscle spasm Take 1 tablet (5 mg) by mouth in the morning and 1 tablet (5 mg) before bedtime. 180 tablet 3 08/11/2023 Active dicyclomine hydrochloride 10 mg oral capsule (20 sources) Anticholinergic Start: 06-21-2024 take 1 capsule by mouth four times daily as needed for pain dicyclomine (Bentyl) 10 MG capsule Indications: Irritable bowel syndrome with constipation Take 1 capsule (10 mg) by mouth 4 (four) times a day as needed (abdominal pain or cramps) 120 capsule 2 06/21/2024 Active Start: 11-05-2023 take 1 capsule by mo uth four times daily as needed for pain dicyclomine (Bentyl) 10 MG capsule Indications: Irritable bowel syndrome with constipation Take 1 capsule (10 mg) by mouth 4 (four) times a day as needed (abdominal pain or cramps) 120 capsule 2 11/05/2023 Active estrogens, conjugated (intermediate) 0.625 mg/ml vaginal cream (2 sources) Estrogen Start: 07-17-2023 Estrogens Conj ugated (Premarin) 0.625 MG/GM cream Indications: Menopause , Vaginal dryness, menopausal Insert 0.5 g into the vagina in the morning. Use daily x2 weeks then use 2 times weekly. 30 g 3 07/17/2023 Active fluocinonide 0.5 mg/ml topical solution (20 sources) Corticosteroid Start: 06-24-2023 fluocinonide ( Lidex) 0.05 % external solution Indications: Lichen planopilaris Apply to affected areas on the scalp, up to once a day when flared, 30 day supply 20 mL 11 12/16/2023 Active fluticasone propionate 0.05 mg/actuat metered dose nasal spray (6 sources) Corticosteroid Start: 05-05-2018 take 2 spray(s) nasal route once daily as needed fluticasone (Flonase) 50 MCG/ACT nasal spray 2 sprays in each nostril Nasally daily as needed for 90 days 0 05/05/2018 Active hydrocortisone acetate 25 mg rectal suppository (20 sources) Corticosteroid Start: 07-30-2023 End: 07-29-2024 hydrocortisone [...] 07/18/2023 Active ibuprofen 800 mg oral tablet (20 sources) Nonsteroidal Anti-inflammatory Drug Start: 01-12-2024 take 1 tablet by mouth every eight hours ibuprofen 800 MG tablet Indications: Arthritis of lumbar spine Take 1 tablet (800 mg) by mouth every 8 (eight) hours 270 tablet 3 01/12/2024 Active Start: 01-19-2020 ibuprofen 800 MG tablet every 8 (eight) hours. 0 01/19/2020 Active levothyroxine sodium 0.1 mg oral tablet (20 sources) l-Thyroxine Start: 12-10-2021 levothyroxine (Synthroid, Levoxyl) 100 MCG tablet Indications: Postoperative hypothyroidism (CMS/HCC) TAKE 1 TABLET IN THE MORNING BEFORE A MEAL 90 tablet 3 07/20/2024 Active Synthroid Active liothyronine sodium 0.005 mg oral tablet (20 sources) l-Triiodothyronine Start: 12-10-2021 take 1 tablet by mouth once daily liothyronine (Cytomel) 5 MCG tablet Indications: Postoperative hypothyroidism (CMS/HCC) Take 1 tablet (5 mcg) by mouth Daily 90 tablet 3 01/12/2024 Active Start: 12-10-2021 take 10 ug by mouth once daily Liothyronine Active 10 MCG PO Daily December 10, 2021 12:00am Cytomel Active lisinopril 10 mg oral tablet (20 sources) Angiotensin Converting Enzyme Inhibitor Start: 12-10-2021 take 1 tablet by mouth in the morning lisinopril 10 MG tablet Indications: Primary hypertension (CMS/HCC) Take 1 tablet (10 mg) by mouth in the morning. 90 tablet 3 08/11/2023 Active magnesium oxide 500 mg oral capsule (6 sources) take 1 capsule by mouth once daily Magnesium 500 MG capsule Take 500 mg by mouth 1 (one) time each day at the same time. 0 Active metFORMIN hydrochloride 500 mg oral tablet (20 sources) Biguanide Start: 12-10-2021 take 1 tablet by mouth at mealtime metFORMIN (Glucophage) 500 MG tablet Indications: Type 2 diabetes mellitus with diabetic neuropathic arthropathy, without long-term current use of insulin (CMS/HCC) Take 1 tablet (500 mg) by mouth in the morning. Take with meals. 180 tablet 3 07/02/2023 Active methocarbamol 750 mg oral tablet (4 sources) Muscle Relaxant Start: 02-19-2022 take 1 tablet by mouth twice daily [...] pantoprazole 40 mg delayed release oral tablet (20 sources) Proton Pump Inhibitor Start: 12-31-2024 pantoprazole (ProtoNix) 40 MG EC tablet Indications: Gastroesophageal reflux disease, unspecified whether esophagitis present TAKE 1 TABLET IN THE MORNING BEFORE A MEAL 90 tablet 3 07/20/2024 Active Start: 08-11-2023 take 1 tablet by alec th before mealtime pantoprazole (Protonix) 40 MG EC tablet Indications: Gastroesophageal reflux disease, unspecified whether esophagitis present Take 1 tablet (40 mg) by mouth in the morning. Take before meals. 90 tablet 3 08/11/2023 Active Pantoprazole Sod ium 40 MG Oral for 90 Days Active semaglutide (Ozempic, 1 MG/DOSE,) 4 MG/3ML solution pen-injector (20 sources) Start: 06-21-2022 inject 1 mg by subcutaneous injection every week semaglutide (Ozempic, 1 MG/DOSE,) 4 MG/3ML solution pen-injector as directed Subcutaneous once weekly for 30 days 06/21/2022 Active Start: 06-21-2022 inject 1 mg by subcu taneous injection every week semaglutide (Ozempic, 1 MG/DOSE,) 4 MG/3ML solution pen-injector as directed Subcutaneous once weekly for 30 days 0 06/21/2022 Active traZODone hydrochloride 50 mg oral tablet (20 sources) Serotonin Reuptake Inhibitor Start: 08-11-2023 End: 08-10-2024 traZODone (Desyrel) 50 MG tablet Indications: Current severe episode of major depressive disorder without psychotic features without prior episode (CMS/HCC) TAKE 1 TABLET AT BEDTIME 90 tablet 3 01/26/2024 Active traZODone HCl 50 MG Oral for 90 Days Active valACYclovir 1000 mg oral tablet (14 sources) Herpesvirus Nucleoside Analog DNA Polymerase Inhibitor, Herpes Simplex Virus Nucleoside Analog DNA Polymerase Inhibitor, Herpes Zoster Virus Nucleoside Analog DNA Polymerase Inhibitor Start: 2020 valACYclovir (Valtrex) 1 g tablet take 2 tablets, repeat in 12 hours Orally 2 times for 2 days 2020 Active 24 hr venlafaxine 150 mg extended release oral capsule (20 sources) Serotonin and Norepinephrine Reuptake Inhibitor Start: 07-20-2024 venlafaxine XR (Effexor XR) 150 MG 24 hr capsule Indications: Anxiety TAKE 1 CAPSULE IN THE MORNING. DO NOT CRUSH OR CHEW 90 capsule 3 07/20/2024 Active Start: 08-11-2023 take 1 capsule by mo uth every twenty-four hours in the morning venlafaxine XR (Effexor XR) 150 MG 24 hr capsule Indications: Anxiety Take 1 capsule (150 mg) by mouth in the morning. Do not crush or chew.. 90 capsule 3 08/11/2023 Active Start: 12-10-2021 take 1 capsule by mo uth once daily Venlafaxine (Effexor Xr) 150 mg Capsule,Extended Release 24hr Active 150 MG PO Daily December 09, 2021 11:00pm VITAMIN D-VITAMIN K PO (6 sources) VITAMIN [...] Active Problems Problem Classification Problem Date Documented Da te Episodic/Chronic Acquired foot deformities (4 sources) Hammer toe; Translations: [Other hammer toe(s) (acquired), right foot] 03-18-2024 Chronic Asthma (20 sources) Mild intermittent asthma; Translations: [Mild intermittent asthma, uncomplicated] Onset: 1 12-26-2022 Chronic Cancer of thyroid (20 sources) Malignant neoplasm of thyroid gland; Translations: [Papillary thyroid carcinoma] Onset: Chronic Deficiency and other anemia (20 sources) Iron deficiency anemia due to blood loss; Translations: [Iron deficiency anemia secondary to blood loss (chronic)] Onset: 3 Resolved: 4 01-13-2023 Chronic Diabetes mellitus with complications (20 sources) Type 2 diabetes mellitus with other specified complication; Translations: [Arthropathy due to type 2 diabetes mellitus] Onset: 2 Resolved: 3 01-13-2023 Chronic Diseases of mouth; excluding dental (1 source) Dry mouth, unspecified Episodic Diverticulosis and diverticulitis (20 sources) Diverticulosis of colon; Translations: [Diverticulosis of large intestine without perforation or abscess without bleeding] Onset: 1 12-26-2022 Chronic Esophageal disorders (20 sources) Gastroesophageal reflux disease; Translations: [Gastro-esophageal reflux disease without esophagitis] Onset: 0 12-10-2021 Chronic Essential hypertension (20 sources) Essential hypertension; Translations: [Essential (primary) hypertension] Onset: 3 12-26-2022 Chronic Joint disorders and dislocations; trauma-related (20 sources) Unspecified subluxation of unspecified shoulder joint, initial encounter; Translations: [Dislocation of digit of hand] Onset: 2 Resolved: 2 Episodic Osteoarthritis (20 sources) Bilateral primary osteoarthritis of knee; Translations: [Osteoarthritis] Onset: 0 Resolved: 3 12-26-2022 Chronic Osteoporosis (20 sources) Age-related osteoporosis without current pathological fracture; Translations: [Senile osteoporosis] Onset: 0 12-26-2022 Chronic Other acquired deformities (20 sources) Scoliosis deformity of spine; Translations: [Scoliosis, unspecified] Onset: 5 12-26-2022 Chronic Other and ill-defined heart disease (20 sources) Left ventricular hypertrophy; Translations: [Cardiomegaly] Onset: 3 01-13-2023 Chronic Other bone disease and musculoskeletal [...] right shoulder, not specified as traumatic Onset: 2 Resolved: 2 Episodic Other gastrointestinal disorders (20 sources) Irritable bowel syndrome characterized by constipation; Translations: [Irritable bowel syndrome with constipation] Onset: 3 11-05-2023 Chronic Other nervous system disorders (4 sources) Neuropathy; Translations: [Polyneuropathy, unspecified] 03-18-2024 Chronic Other non-traumatic joint disorders (4 sources) Derangement of right shoulder joint; Translations: [Other specific joint derangements of right shoulder, not elsewhere classified] Chronic Other non-traumatic joint disorders (1 source) Other specific joint derangements of right shoulder, not elsewhere classified Onset: 2 Resolved: 2 Chronic Other non-traumatic joint disorders (4 sources) Pain in right shoulder; Translations: [PAIN IN RIGHT SHOULDER] Onset: 2 Episodic Other nutritional; endocrine; and metabolic disorders (1 source) Body mass index (BMI) 26.0-26.9, adult Episodic Residual codes; unclassified (5 sources) Obstructive sleep apnea (adult) (pediatric); Translations: [OBSTRUCTIVE SLEEP APNEA] Onset: 2 Chronic Residual codes; unclassified (20 sources) Obstructive sleep apnea syndrome; Translations: [Obstructive sleep apnea (adult) (pediatric)] Onset: 8 12-26-2022 Chronic Residual codes; unclassified (1 source) Obstructive sleep apnea (adult)(pediatric); Translations: [Obstructive sleep apnea (adult) (pediatric)] Onset: 3 Chronic Spondylosis; intervertebral disc disorders; other back problems (20 sources) Lumbar arthritis; Translations: [Spondylosis without myelopathy or radiculopathy, lumbar region] Onset: 3 12-26-2022 Chronic Spondylosis; intervertebral disc disorders; other back problems (10 sources) Acute low back pain; Translations: [Acute left-sided low back pain without sciatica] 08-22-2023 Episodic Sprains and strains (2 sources) Strain of other muscles, fascia and tendons at shoulder and upper arm level, right arm, initial encounter Onset: 2 Resolved: 2 Episodic Superficial injury; contusion (7 sources) Contusion of right shoulder, initial encounter; Translations: [Contusion of right hip, initial encounter] Onset: 2 Episodic Unclassified (1 source) Low back pain, unspecified; Translations: [Low back pain, unspecified] Onset: 3 Past or Other Problems Problem Classification Problem Date Documented Da te Episodic/Chronic Anxiety disorders (20 sources) Anxiety; Translations: [Anxiety disorder, unspecified] Onset: 07-16-2017 Resolved: 04-23-2024 04-22-2023 Chronic Blindness and vision defects (20 sources) Presbyopia; Translations: [Presbyopia] Onset: 06-15-2019 12-26-2022 Episodic Cancer of thyroid (20 sources) History of malignant neoplasm of thyroid; Translations: [Personal history of malignant neoplasm of thyroid] Onset: 09-04-2020 Resolved: 04-23-2024 12-26-2022 Episodic Complications of surgical procedures or medical care (20 sources) Postprocedural hypothyroidism; Translations: [Postoperative hypothyroidism] Onset: 07-16-2017 Resolved: 04-23-2024 Chronic Deficiency and other anemia (20 sources) Anemia; Translations: [Anemia, unspecified] Onset: 12-26-2022 Resolved: 11-05-2023 12-26-2022 Episodic Diabetes mellitus without complication (20 sources) Type 2 diabetes mellitus without complications; Translations: [Type 2 diabetes mellitus without complication] Onset: 09-15-2020 Resolved: 01-13-2023 01-13-2023 Chronic Disorders of lipid metabolism (20 sources) Pure hypercholesterolemia , unspecified; Translations: [Familial hypercholesterolemia ] Onset: 06-07-2016 Resolved: 04-23-2024 12-26-2022 Chronic E Codes: Fall (1 source) Fall [...] [Cardiac murmur, unspecified] Onset: 01-03-2023 Episodic Hemorrhoids (20 sources) External hemorrhoids; Translations: [Residual hemorrhoidal skin tags] Onset: 12-24-2017 Resolved: 11-05-2023 12-26-2022 Episodic Mood disorders (20 sources) Severe major depression, single episode, without psychotic features; Translations: [Major depressive disorder, single episode, severe without psychotic features] Onset: 03-20-2023 Resolved: 07-02-2023 07-02-2023 Chronic Mood disorders (20 sources) Mood disorders Onset: 07-02-2023 07-02-2023 Nutritional deficiencies (20 sources) Vitamin D deficiency, unspecified; Translations: [Vitamin D deficiency] Onset: 08-03-2018 Resolved: 02-26-2023 02-26-2023 Chronic Open wounds of extremities (4 sources) Unspecified open wound of right middle finger without damage to nail, initial encounter; Translations: [Unspecified open wound of unspecified finger without damage to nail, subsequent encounter] Onset: 02-08-2024 Episodic Other aftercare (1 source) Other remote computer terminal operator (current) drug therapy; Translations: [OTH DELINQUENCY COUNSELOR CURRENT DRUG THERAPY] Onset: 02-05-2022 Episodic Other aftercare (1 source) termite treater (current) use of oral hypoglycemic drugs; Translations: [DELINQUENCY COUNSELOR USE ORAL HYPOGLYCEMIC DX] Onset: 02-05-2022 Episodic Other and unspecified benign neoplasm (20 sources) Benign neoplasm of colon; Translations: [Benign neoplasm of colon, unspecified] Onset: 09-04-2020 12-26-2022 Episodic Other connective tissue disease (2 sources) Myalgia, unspecified site; Translations: [Myalgia, unspecified site] Onset: 03-19-2024 Episodic Other fractures (2 sources) Displaced fracture [...] injuries and conditions due to external causes (20 sources) Injury of right knee; Translations: [Unspecified injury of right lower leg, initial encounter] Onset: 12-26-2022 Resolved: 11-05-2023 12-26-2022 Episodic Other injuries and conditions due to external causes (20 sources) Injury of left knee; Translations: [Unspecified injury of left lower leg, initial encounter] Onset: 12-30-2022 Resolved: 11-05-2023 12-30-2022 Episodic Other nutritional; endocrine; and metabolic disorders (20 sources) Obesity caused by energy imbalance; Translations: [Other obesity due to excess calories] Onset: 09-04-2020 Resolved: 11-05-2023 12-26-2022 Chronic Other screening for suspected conditions (not mental disorders or infectious disease) (20 sources) Patient encounter status; Translations: [Encounter for screening for malignant neoplasm of colon] Onset: 07-02-2023 Resolved: 04-20-2024 12-10-2021 Episodic Other skin disorders (4 sources) Callosity; Translations: [Corns and callosities] 03-18-2024 Episodic Residual codes; unclassified (20 sources) Unspecified donor, other blood; Translations: [Other blood donors] Onset: 02-26-2023 Resolved: 11-05-2023 02-26-2023 Episodic Viral infection (20 sources) Postherpetic neuralgia; Translations: [Other postherpetic nervous system involvement] Onset: 06-22-2015 12-26-2022 Episodic Results Test Name Value Interpretation Reference Range Facility Follow-Upon 08-04-2024 Follow-Up [id number] Mirta Welsh 1950 F Date Provider Department Center 08/04/2024 DENIZ LUU MP ORTHO [facility]TH[facility] No family history on file Level of Service:05779 [place] OFFICE/OUTPATIENT ESTABLISHED LOW MDM 20 MIN Reason for Visit and Comments: Pain [136] Normal [facility] 36on 07-12-2024 36 Sent to [place] Normal [facility] Follow-Upon 06-22-2024 Follow-Up [id number] Mirta Welsh 1950 F Date Provider Department Center 06/22/2024 DENIZ LUU MP ORTHO MPORTHO No family history on file Level of Service:82136 [place] POSTOP FOLLOW UP VISIT RELATED TO ORIGINAL PX (GC) Reason for Visit and Comments: Pain [136] [facility] 36on 05-17-2024 36 Faxed the order over [facility] Orders Onlyon 05-17-2024 Orders Only [id number] Mirta Welsh 1950 F Date Provider Department [place] 05/17/2024 Elijah3-KRUNAL CROWDER [facility] No family history on file [facility] 36on 05-11-2024 36 Sent to [facility] Follow-Upon 05-11-2024 Follow-Up [id number] Mirta Welsh 1950 F Date Provider Department Center 05/11/2024 [place]-DENIZ ROLDAN [facility] No family history on file Level of Service:[id number] [place] POSTOP FOLLOW UP VISIT RELATED TO ORIGINAL PX Reason for Visit and Comments: Pain [136] [facility] ALL CBC WITH AUTO DIFFon BASOPHILS ABSOLUTE AUTO 0.0 [facility] Basophils/100 WBC (Bld) 0.6 % 0.2 - 2.0 % [facility] Eosinophils/100 WBC (Bld) 9.1 % High 0.9 - 7.0 % [facility] Erythrocyte distribution width (RBC) [Ratio] 13.2 % 11.0 - 15.0 % [facility] Hematocrit (Bld) [Volume fraction] 40.9 % 36.0 - 48.0 % [facility] Hemoglobin (Bld) [Mass/Vol] 13.4 g/dL 12.0 - 16.0 g/dL [facility] IMMATURE GRANULOCYTES ABS AUTO 0.02 [facility] Immature granulocytes/100 WBC (Bld) 0.3 % 0.0 - 0.5 % [facility] Interpretation and review of laboratory results Abnormal [facility] LYMPHOCYTES ABSOLUTE AUTO 2.8 [facility] Lymphocytes/100 WBC (Bld) 40.4 % 20.5 - 60.0 % [facility] MCH (RBC) [Entitic mass] 31.5 pg 26.7 - 34.0 pg [facility] MCHC (RBC) [Mass/Vol] 32.8 g/dL 29.9 - 35.2 g/dL [facility] MCV (RBC) [Entitic vol] 96.0 fL 81.0 - 99.0 fL [facility] MONOCYTES ABSOLUTE AUTO 0.5 [facility] Monocytes/100 WBC (Bld) 7.7 % 1.7 - 12.0 % [facility] NEUTROPHILS ABSOLUTE AUTO 2.9 [facility] Neutrophils/100 WBC (Bld) 41.9 % Low 43.0 - 75.0 % [facility] Platelet mean volume (Bld) [Entitic vol] 8.6 fL Low 9.5 - 13.5 fL [facility] TBH EO # 0.6 [facility] PLT 313 [facility] RBC 4.26 [facility] WBC 7.0 [facility] [facility] Documentationon 04-15-2024 Documentation [id number] Mirta Welsh 1950 Date Provider Department Center 04/15/2024 ANDERSON VALLEJO MP OT Medical Pavi No family history on file Reason for Visit and Comments: OT Treatment [286] - Patient presented this date and right long finger orthosis was adjusted to extend to include the entire finger from MP joint to the tip. [facility] Follow-Upon 04-14-2024 Follow-Up [id number] Mirta Welsh 1950 [facility] Provider Department [place] 04/14/2024 DENIZ LUU MP ORTHO MPORTHO No family history on file Level of Service:[id number] [place] POSTOP FOLLOW UP VISIT RELATED TO ORIGINAL PX Reason for Visit and Comments: Post-op [483] [facility] 36on 04-06-2024 36 Sent to [facility] Office Visiton 04-06-2024 Follow-up visit [id number] Mirta Welsh 1950 Date Provider Department [place] 04/06/2024 DENIZ LUU MP ORTHO MPORTHO No family history on file Level of Service:[id number] [place] POSTOP FOLLOW UP VISIT RELATED TO ORIGINAL PX Reason for Visit and Comments: Post-op [483] [facility] HPon 03-25-2024 HP H&P reviewed. The patient was examined and there are no changes to the H&P. [facility] NURSNOTEon 03-25-2024 ARTHUR Hernández is at bedside Normal [facility] OPNOTEon 03-25-2024 OPNOTE Operative Note Patient: Mirta Welsh Date of Surgery: 03/25/2024 : 1950 Pre-operative Diagnosis: Extensor lag right long finger, with possible deep infection. Post-operative Diagnosis: same Operation: Repair of extensor mechanism right long finger Surgeon: Deniz Roldan MD Cotton Broker: Carlos Valdes MD Staff: Log Check Scaler: Cara Andrews RN Relief Log Check Scaler: Yessenia Kothari RN Relief Scrub: Reyna Parnell, BATSHEVA Scrub Person: Julio Adamson CST Anesthesia Type: [...] PACU Condition: Stable Deniz Roldan MD Normal [facility] POCT GLUCOSE METER UNSOLICIT ED RESULTSon 03-25-2024 Glucose [Mass/Vol] 96 mg/dL Normal 70-105 [facility] Comment on above: Order Comment: Waive d Testing in the ED is performed under the ED CLIA certificate #[id number]. Result Comment: earl k2 Performed By: #### L [id number] #### [facility] [address] [place] [address] WOUND CULTUREon 03-25-2024 GRAM STAIN RESULT Normal [facility] Comment on above: Order Comment: Pre-o p diagnosis:Tendon pain [M79.10] Result Comment: No p olymorphonuclear leukocytes seen No organisms seen Performed By: #### L [id number] ####[facility] ([facility])[address] [place] [address] WOUND CULTURE No growth at 5 days Normal [facility] Comment on above: Order Comment: Pre-o p diagnosis:Tendon pain [M79.10] Performed By: #### L [id number] ####[facility] ([facility])[address] [place] [address] 36on 03-23-2024 36 Sent to [facility] Orders Onlyon 03-23-2024 Orders Only [id number] Mirta Welsh 1950 F Date Provider Department Center 03/23/2024 [id number]-JSELWNATY JAQUEZ [facility] Medical No family history on file [facility] 36on 03-19-2024 36 Comptometer Operator informed patient that she could be seen at clinic before 11am today, patient on the way [facility] 36 Patient called and would like to be seen today, patient states she is currently taking atb keflex 500mg QID [facility] Abstracton 03-19-2024 Abstract [id number] Mirta Welsh 1950 F Date Provider Department Center 03/19/2024 KRUNAL LEIGH MP ORTHO MPORTHO No family history on file [facility] Follow-Upon 03-19-2024 Follow-Up [id number] Mirta Welsh 1950 F Date Provider Department Center 03/19/2024 438-SKIE, DENIZ MP ORTHO MPORTHO No family history on file Level of Service:11082 [place] POSTOP FOLLOW UP VISIT RELATED TO ORIGINAL PX Reason for Visit and Comments: Follow-up [[id number]] [facility] HPon 03-19-2024 Orthopedic Surgery 02/09/2024 I&d, Pinning Right Long Finger - Right, Repair, Extensor Tendon, Finger - Right, and Repair, Ligament, Ulnar Collateral - Right Mirta Welsh comes in for a post-operative visit [...] extension lag at the PIP joint. Assessment: Mirta Welsh is a 73 y.o. year old [...] there is any infection that is present. [facility] 36on 03-18-2024 36 Patient has upcommin g appointment with On Friday03/23/24. Patient thinks that is to long to wait she believes that she has and infection in her right middle. Patient states her finger is hot red and swollen, and her pain is a 6/10. Patient is asking for a earlier appointment then Friday. Please advise. Thank you. [facility] 36 Patient was moved up to friday [facility] 36 Patient requesting a call back states she needs to be seen sooner, her finger keepts swelling up [facility] 36on 03-10-2024 36 Sent to [facility] Abstracton 03-10-2024 Abstract [id number] Mirta Welsh 1950 [facility] Department [place] 03/10/2024 803-KRUNAL CROWDER MP ORTHO MPORTHO No family history on file [facility] Office Visiton 03-10-2024 Follow-up visit [id number] Mirta Welsh 1950 [facility] 03/10/2024 DENIZ LUU MP ORTHO MPORTHO No family history on file Level of Service:[id number] [place] POSTOP FOLLOW UP VISIT RELATED TO ORIGINAL PX Reason for Visit and Comments: Post-op [483] [facility] 36on 03-04-2024 36 See other message [facility] 36 Patient was called and moved to 03/10, patient called back and states that she can not make it that day, patient will be on my list to move up sooner. [facility] Orders Onlyon 03-04-2024 Orders Only [id number] Mirta Welsh 1950 [facility] 03/04/2024 803-KRUNAL CROWDER MP ORTHO MPORTHO No family history on file [facility] 36on 03-03-2024 36 Patient states she [...] call if this will be an issues. [facility] 36 Pt is scheduled for post op appt on 03/10 that she needs to reschedule I was only able to offer 04-12 anything sooner?? [facility] 36on 02-25-2024 36 Sent to [facility] Office Visiton 02-25-2024 Follow-up visit [id number] Mirta Welsh 1950 F Date Provider Department Center 02/25/2024 DENIZ LUU MP ORTHO MPORTHO No family history on file Level of Service:36052 [place] POSTOP FOLLOW UP VISIT RELATED TO ORIGINAL PX Reason for Visit and Comments: Post-op [483] [facility] 3602-16-2024 36 Sent to [facility] 36on 02-13-2024 36 Sent to [facility] 36 Sent to [facility] 02-09-2024 30 Problem: Pain - Adul t [...] for assistance with activity based on assessment [facility] 30 Daily Case Managemen t Update Multidisciplinary rounds have been completed. Barriers to Discharge: Pending Clinical course. Transfer from [place], I&D at bedside today R finger. Await [...] for OT? Answer: weakness 02/09/24 0748 Normal [facility] HPon 02-09-2024 HP H&P reviewed. The patient was examined and there are no changes to the H&P. Normal [facility] MRSA/MSSA DNA NASALon 2023 MRSA DNA Negative Normal Negative [facility] Comment on above: Order Comment: Testi ng [...] preclude nasal colonization. Performed By: #### L [id number] #### [facility] , MSSA DNA Negative Normal Negative [facility] Comment on above: Order Comment: Testi ng [...] preclude nasal colonization. Performed By: #### L [id number] #### [facility] , OPNOTEon 02-09-2024 OPNOTE Operative Note Patient: Mirta Welsh Date of Surgery: 02/09/2024 Pre-operative Diagnosis: Open dislocation PIP joint right long finger Post-operative Diagnosis: same Operation: 1. Irrigation and nonexcisional debridement of open joint, 2. Pinning PIP joint right long finger, 3. Extensor tendon repair right long finger, 4. Repair of ulnar collateral ligament PIP joint right long finger Surgeon: Deniz Roldan MD Cotton Broker: Chuckie Miner MD Staff: Log Check Scaler: Cara Andrews RN Scrub Person: Rae Fry [...] then did the soft tissue repairs. A [id number] sutures placed into the collateral ligament repairing that bit back to the base of the middle phalanx. There was soft tissue and periosteum at the base that we could get a nice bite of the suture into. A second [id number] suture was used to repair the central [...] Name Action Serial No. Pin K-WIRE,1.1,120MM - [id number] Implanted Complications: None Disposition: PACU Condition: stable Deniz Roldan MD [facility] POCT GLUCOSE METER UNSOLICIT ED RESULTSon 02-09-2024 Glucose [Mass/Vol] 104 mg/dL Normal 70-105 [facility] Comment on above: Order Comment: Waive d Testing in the ED is performed under the ED CLIA certificate #[id number]. Result Comment: asor ia3 Performed By: #### L [id number] #### [facility] ([facility]) [address] [place] [address] Glucose [Mass/Vol] 96 mg/dL Normal 70-105 [facility] Comment on above: Order Comment: Waive d Testing in the ED is performed under the ED CLIA certificate #[id number]. Result Comment: elac umsky Performed By: #### L [id number] ####[facility] ([facility])[address] [place] [address] BASIC METABOLIC PANELon 07-2 Anion gap [Moles/Vol] 12 mmol/L Normal 7-20 [facility] Comment on above: Performed By: #### L [id number] #### [facility] ([facility]) [address] [place] [address] Calcium [Mass/Vol] 8.5 mg/dL Low 8.6-10.3 [facility] Comment on above: Performed By: #### L [id number] #### [facility] ([facility]) [address] [place] [address] Chloride [Moles/Vol] 106 mmol/L Normal 98-107 [facility] Comment on above: Performed By: #### L [id number] #### [facility] ([facility]) [address] [place] [address] CO2 [Moles/Vol] 25 mmol/L Normal 21-31 [facility] Comment on above: Performed By: #### L [id number] #### [facility] ([facility]) [address] [place] [address] Creatinine [Mass/Vol] 0.60 mg/dL Normal 0.60-1.20 [facility] Comment on above: Performed By: #### L [id number] #### [facility] ([facility]) [address] [place] [address] GLOMERULAR FILTRATION RATE ML/MIN/1.73 SQ M.PREDICTED 95.9 mL/min/1.73m*2 Normal >60.0 [facility] Comment on above: Result Comment: The [facility]???s estimated glomerular filtration rate (eGFR) will no [...] individuals. Performed By: #### L [id number] #### [facility] ([facility]) [address] [place] [address] Glucose [Mass/Vol] 85 mg/dL Normal 70-100 [facility] Comment on above: Performed By: #### L [id number] #### [facility] ([facility]) [address] [place] [address] Potassium [Moles/Vol] 3.8 mmol/L Normal 3.5-5.1 [facility] Comment on above: Performed By: #### L [id number] #### [facility] ([facility]) [address] [place] [address] Sodium [Moles/Vol] 139 mmol/L Normal 136-145 [facility] Comment on above: Performed By: #### L [id number] #### [facility] ([facility]) [address] [place] [address] Urea nitrogen [Mass/Vol] 10 mg/dL Normal 7-25 [facility] Comment on above: Performed By: #### L [id number] #### [facility] ([facility]) [address] [place] [address] UREA NITROGEN/CREATININE (MASS RATIO) IN SER/PLAS 16.7 Normal [facility] Comment on above: Performed By: #### L [id number] #### [facility] [address] [place] [address] CBC WITH AUTO DIFFERENTIALon 02-08-2024 Basophils (Bld) [#/Vol] 0.04 10*3/uL Normal 0.00-0.20 [facility] Comment on above: Performed By: #### L [id number] #### [facility] ([facility]) [address] [place] [address] Basophils/100 WBC (Bld) 0.4 % Normal 0.0-1.0 [facility] Comment on above: Performed By: #### L [id number] #### [facility] ([facility]) [address] [place] [address] Eosinophils (Bld) [#/Vol] 0.25 10*3/uL Normal 0.00-0.50 [facility] Comment on above: Performed By: #### L [id number] #### [facility] ([facility]) [address] [place] [address] Eosinophils/100 WBC (Bld) 2.7 % Normal 0.0-6.0 [facility] Comment on above: Performed By: #### L [id number] #### [facility] ([facility]) [address] [place] [address] Erythrocyte distribution width (RBC) [Ratio] 13.8 % Normal 11.5-15.0 [facility] Comment on above: Performed By: #### L [id number] #### [facility] ([facility]) [address] [place] [address] ERYTHROCYTE MEAN CORPUSCULAR HEMOGLOBIN CONCENTRATION (G/DL) BY AUTOMATED 32.4 g/dL Normal 32.0-35.0 [facility] Comment on above: Performed By: #### L [id number] #### [facility] [address] [place] [address] Hematocrit (Bld) [Volume fraction] 39.8 % Normal 36.0-48.0 [facility] Comment on above: Performed By: #### L [id number] #### [facility] ([facility]) [address] [place] [address] Hemoglobin (Bld) [Mass/Vol] 12.9 g/dL Normal 12.0-15.0 [facility] Comment on above: Performed By: #### L [id number] #### [facility] ([facility]) [address] [place] [address] Immature granulocytes (Bld) [#/Vol] 0.02 10*3/uL Normal 0.00-0.20 [facility] Comment on above: Performed By: #### L [id number] #### [facility] ([facility]) [address] [place] [address] Immature granulocytes/100 WBC (Bld) 0.2 % Normal 0.0-1.0 [facility] Comment on above: Performed By: #### L [id number] #### [facility] [address] [place] [address] Lymphocytes (Bld) [#/Vol] 2.74 10*3/uL Normal 1.20-4.00 [facility] Comment on above: Performed By: #### L [id number] #### [facility] ([facility]) [address] [place] [address] Lymphocytes/100 WBC (Bld) 29.6 % Normal 20.0-45.0 [facility] Comment on above: Performed By: #### L [id number] #### [facility] [address] [place] [address] MCH (RBC) [Entitic mass] 31.2 pg Normal 27.0-33.0 [facility] Comment on above: Performed By: #### L [id number] #### [facility] ([facility]) [address] [place] [address] MCV (RBC) [Entitic vol] 96.4 fL Normal 82.0-98.0 [facility] Comment on above: Performed By: #### L [id number] #### [facility] ([facility]) [address] [place] [address] Monocytes (Bld) [#/Vol] 0.77 10*3/uL Normal 0.10-1.00 [facility] Comment on above: Performed By: #### L [id number] #### [facility] ([facility]) [address] [place] [address] Monocytes/100 WBC (Bld) 8.3 % Normal 5.0-12.0 [facility] Comment on above: Performed By: #### L [id number] #### [facility] ([facility]) [address] [place] [address] Neutrophils (Bld) [#/Vol] 5.45 10*3/uL Normal 1.60-7.60 [facility] Comment on above: Performed By: #### L [id number] #### [facility] ([facility]) [address] [place] [address] Neutrophils/100 WBC (Bld) 58.8 % Normal 40.0-72.0 [facility] Comment on above: Performed By: #### L [id number] #### [facility] ([facility]) [address] [place] [address] NRBC (PER 100 WBCS) BY AUTOMATED COUNT 0.0 % Normal 0 [facility] Comment on above: Performed By: #### L [id number] #### [facility] ([facility]) [address] [place] [address] PLATELETS (10*3/UL) IN BLOOD AUTOMATED COUNT 342 10*3/uL Normal 150-400 [facility] Comment on above: Performed By: #### L [id number] #### [facility] ([facility]) [address] [place] [address] RBC (Bld) [#/Vol] 4.13 10*6/uL Normal 3.80-5.00 [facility] Comment on above: Performed By: #### L [id number] #### [facility] ([facility]) [address] [address] WBC (Bld) [#/Vol] 9.27 10*3/uL Normal 4.00-10.60 [facility] Comment on above: Performed By: #### L [id number] #### [facility] ([facility]) [address] [place] [address] CT CERVICAL SPINE WO IV CONT RASTon [...] malalignment. Electronically signed: Mary Martinez MD. Normal [facility] CT HEAD WO IV CONTRASTon CT HEAD [...] pathology. Electronically signed: Mary Martinez MD. Normal [facility] EDNURSon 02-08-2024 EDNURS [facility] HP -- Attestation signed by Deniz Roldan MD at 02/09/2024 8:24 AM I did not personally examine the patient. I discussed the case with the resident and agree with the plan. ORTHOPEDIC SURGERY CONSULTATION CHIEF COMPLAINT: right long finger injury HPI: Mirta Welsh is a 73 y.o. female with complaint of right long finger injury. Pain began after their finger got caught in their dog's collar as the dog took off running. They presented to the [facility] Emergency Department where x-rays were obtained [...] documented in the HPI. Physical exam: Vitals: 02/08/24 1923 BP: (!) 148/91 Pulse: 85 Resp: 18 [...] PIP joint with soft tissue swelling. Assessment: Mirta Welsh is a 73 y.o.female with a [...] MD Orthopedic Surgery Resident, PGY-1 02/08/2024 Normal [facility] PROTIME-INRon 02-08-2024 INR IN PPP BY COAGULATION ASSAY 0.98 Normal 0.90-1.10 [facility] Comment on above: Result Comment: ACCC P [...] 1995;108:[id number]-246S. Performed By: #### L [id number] #### [facility] ([facility]) [address] [place] [address] PROTHROMBIN TIME (PT) IN PPP BY COAGULATION ASSAY 13.0 Seconds Normal 12.3-14.8 [facility] Comment on above: Performed By: #### L [id number] #### [facility] ([facility]) [address] [place] [address] TYPE AND SCREENon 02-08-2024 AB SCREEN Negative Normal [facility] Comment on above: Performed By: #### L [id number] #### [facility] , ABO group Nom (Bld) O Normal [facility] Comment on above: Performed By: #### L [id number] #### [facility] , RH TYPE IN BLOOD Positive Normal [facility] Comment on above: Performed By: #### L [id number] #### [facility] , VITAMIN D 25 HYDROXYon 02-07 CALCIDIOL (25 [place] VITAMIN D3) (NG/ML) IN SER/PLAS 49.9 ng/mL Normal 30.0-80.0 [facility] Comment on above: Result Comment: >80. 0 Toxicity possible Performed By: #### L [id number] #### [facility] ([facility]) [address] [place] [address] [facility] echo transthoracicon [facility] echo transthoracic [facility] [place] [address] Echocardiogram Signed Patient: Mirta Welsh MR#: [id number] : 1950 Acct:[id number] Age/Sex: 72 / F ADM Date: 01/03/23 Loc: Room: Type: [facility] Attending Dr: Ning Gong-Roxana ANGEL Ordering Provider: Ning ORTIZ Date of Service: 01/03/23/ ECH/ECH echo transthoracic: murmur. Copies to: Ning Celaya [...] Performed At: 01/03/23 1557 Signed By: Adrianne Celaya MD 01/03/23 1638 [facility] FREE T3on 06-18-2022 FREE T3 2.83 pg/mlL Normal 2.18-3.98 [facility] Comment on above: Performed By: #### T SH, FT3, BMP ####[facility] [address] [place], [place] [address]Dr. Mary Ellen Rolon FREE T4on 06-18-2022 Free T4 [Mass/Vol] 1.03 ng/dL Normal 0.76-1.46 [facility] Comment on above: Performed By: #### F T4 #### [facility] [address] [address] [address] Mary Ellen Rolon GLYCOHEMOGLOBIN A1Con 2021 ADA RECOMMENDATION SEE BELOW Normal [facility] Comment on above: Result Comment: ADA RECOMMENDED LIMIT 4.0 - 6.0 ADA THERAPEUTIC TARGET < 7.0 ACTION SUGGESTED > 7.0 Performed By: #### A 1C ####[facility] [address] [place] [place] [address]Dr. Mary Ellen Rolon Glucose [Mass/Vol] 137 mg/dL Normal [facility] Comment on above: Performed By: #### A 1C ####[facility] [address] [address]Dr. Mary Ellen Rolon HbA1c (Bld) [Mass fraction] 6.4 % Critically high 4.5-6.2 [facility] Comment on above: Performed By: #### A 1C ####[facility] [address] [address]Dr. Mary Ellen Rolon PROF CHEM 8 (BAS METB)on Anion gap [Moles/Vol] 11.5 mmol/L Normal [facility] Comment on above: Performed By: #### T ISRAEL, FT3, BMP ####[facility] [address] [place], [place] [address]Dr. Mary Ellen Rolon Calcium [Mass/Vol] 9.2 mg/dL Normal 8.5-10.1 [facility] Comment on above: Performed By: #### T ISRAEL, FT3, BMP ####[facility] [address] [place], [place] [address]Dr. Mary Ellen Rolon Chloride [Moles/Vol] 102 mmol/L Normal 98-107 [facility] Comment on above: Performed By: #### T ISRAEL, FT3, BMP ####[facility] [address] [place], [place] [address]Dr. Mary Ellen Rolon CO2 [Moles/Vol] 29.5 mmol/L Normal 21.0-32.0 [facility] Comment on above: Performed By: #### T ISRAEL, FT3, BMP ####[facility] [address] [place], [place] [address]Dr. Mary Ellen Rolon Creatinine [Mass/Vol] 0.66 mg/dL Normal 0.55-1.02 [facility] Comment on above: Performed By: #### T ISRAEL, FT3, BMP ####[facility] [address] [place], [place] [address]Dr. Mary Ellen Rolon EGFR-AF [place] >60 Normal >=60 [facility] Comment on above: Performed By: #### T ISRAEL, FT3, BMP ####[facility] [address] [place], [place] [address]Dr. Mary Ellen Rolon EGFR-NON AF [place] >60 Normal >=60 [facility] Comment on above: Performed By: #### T ISRAEL FT3, BMP ####[facility] [address] [place] [address]Dr. Mary Ellen Rolon Glucose [Mass/Vol] 120 mg/dL Critically high 74-106 [facility] Comment on above: Performed By: #### T ISRAEL FT3, BMP ####[facility] [address]mb[address]ar[address]tu[address] [place] [address]Dr. Ginasreekanth Rolon Potassium [Moles/Vol] 4.0 mmol/L Normal 3.5-5.1 [facility] Comment on above: Performed By: #### T ISRAEL FT3, BMP ####[facility] [address]zxrgewdl[address] [place] [address]Dr. Ginasreekanth Rolon Sodium [Moles/Vol] 139 mmol/L Normal 136-145 [facility] Comment on above: Performed By: #### T ISRAEL FT3, BMP ####[facility] [address] [place] [address]Dr. Ginasreekanth Rolon Urea nitrogen [Mass/Vol] 11.0 mg/dL Normal 7.0-18.0 [facility] Comment on above: Performed By: #### T ISRAEL FT3, BMP ####[facility] [address]iqcgu[address] [place] [address]Dr. Mary Ellen Rolon Urea nitrogen/Creatinine [Mass ratio] 16.7 mg/mg Normal [facility] Comment on above: Performed By: #### T ISRAEL FT3, BMP ####[facility] Ljy[address]midwg[address] [place] [address]Dr. Mary Ellen Rolon TSHon 06-18-2022 TSH 0.734 uIU/mL Normal 0.358-3.740 [facility] Comment on above: Performed By: #### T ISRAEL, FT3, BMP ####[facility] [address] [place] [address]Dr. Mary Ellen Rolon SCREENING MAMMOGRAM W/BERONICA, BILATERAL*on 04-02-2022 SCREENING MAMMOGRAM W/BERONICA, BILATERAL* CLINICAL HISTORY: Screening Mammogram COMPARISON: Priors dating back to 2016. TECHNIQUE: 2D and 3D mammogram imaging of both breasts was performed. RESULT: DENSITY: Heterogeneously dense, which may obscure small masses. There is no suspicious mass, asymmetry, architectural distortion, or calcification. No significant change since the prior mammograms. IMPRESSION: BIRADS 1 : NEGATIVE, NORMAL INTERVAL FOLLOW UP FOLLOW UP: 12 months DENSITY: Heterogeneously dense MAMMOGRAPHY IS VERY IMPORTANT TO YOUR HEALTH. THE CURRENT [place] [employer] GUIDELINES RECOMMENDS ANNUAL MAMMOGRAPHY BEGINNING AT AGE 42 THIS FACILITY USES A REMINDER SYSTEM TO ENSURE ALL PATIENTS RECEIVE REMINDER NOTIFICATIONS AT THE APPROPRIATE TIME BASED ON THE RECOMMENDATIONS OF THIS EXAM. Board Certified Radiologist. Accredited by the ACR and FDA. Report reported and signed by Abhi Jefferson on 04/02/2022 1442 Normal [facility] [employer] FREE T3on 02-08-2022 FREE T3 1.70 pg/mlL Critically low 2.18-3.98 [facility] Comment on above: Performed By: #### F T4, VITAD #### [facility] [address] [place] [address] Dr. Mary Ellen Rolon GLYCOHEMOGLOBIN A1Con 2021 ADA RECOMMENDATION SEE BELOW Normal [facility] Comment on above: Result Comment: ADA RECOMMENDED LIMIT 4.0 - 6.0 ADA THERAPEUTIC TARGET < 7.0 ACTION SUGGESTED > 7.0 Performed By: #### A 1C #### [facility] [address] [place] [address] Dr. Mary Ellen Rolon Glucose [Mass/Vol] 148 mg/dL Normal [facility] Comment on above: Performed By: #### A 1C #### [facility] [address] [place] [address] Dr. Mary Ellen Rolon HbA1c (Bld) [Mass fraction] 6.8 % Critically high 4.5-6.2 [facility] Comment on above: Performed By: #### A 1C #### [facility] [address] [place] [address] Dr. Mary Ellen Rolon LIPID PROFILEon 02-08-2022 CHOL-HDL RATIO NORM SEE BELOW Normal [facility] Comment on above: Result Comment: 3.3 - 4.4 LOW RISK 4.4 - 7.1 AVERAGE RISK 7.1 - 11.0 MODERATE RISK >11.0 HIGH RISK Performed By: #### T SH, FT3, T4, CMP, LIPID ####[facility] [address]sci[address] [place] [address]Dr. Mary Ellen Rolon Cholesterol [Mass/Vol] 169 mg/dL Normal <=200 [facility] Comment on above: Performed By: #### T SH, FT3, T4, CMP, LIPID ####[facility] Yqxlpttawe[address] [place] [address]Dr. Mary Ellen Rolon Cholesterol in HDL [Mass/Vol] 51 mg/dL Normal 40-60 [facility] Comment on above: Performed By: #### T SH, FT3, T4, CMP, LIPID ####[facility] [address]tw[address]epyta[address] [place] [address]Dr. Mary Ellen Rolon Cholesterol in LDL [Mass/Vol] 86.8 mg/dL Normal [facility] Comment on above: Performed By: #### T SH, FT3, T4, CMP, LIPID ####[facility] Vodtlfslfx[address] [place] [address]Dr. Mary Ellen Rolon Cholesterol.total/Ch olesterol in HDL [Mass ratio] 3.3 {ratio} Normal [facility] Comment on above: Performed By: #### T SH, FT3, T4, CMP, LIPID ####[facility] [address]wzeom[address]lnc[address] [place] [address]Dr. Mary Ellen Rolon HDL NORMAL > or = 60 mg/dl - LO W CARDIOVASCULAR RISK <40 mg/dl - HIGH CARDIOVASCULAR RISK Normal [facility] Comment on above: Performed By: #### T SH, FT3, T4, CMP, LIPID ####[facility] [address]lsul[address] [place] [address]Dr. Mary Ellen Rolon LDL CALC NORMAL SEE BELOW Normal [facility] Comment on above: Result Comment: <100 mg/dl OPTIMAL 100 - 129 mg/dl NEAR OR ABOVE OPTIMAL 130 - 159 mg/dl BORDERLINE HIGH 160 - 189 mg/dl HIGH >190 mg/dl VERY HIGH Performed By: #### T SH, FT3, T4, CMP, LIPID ####[facility] [address]vtf[address]jxbhv[address] [place] [address]Dr. Mary Ellen Rolon Triglyceride [Mass/Vol] 156 mg/dL Critically high <=150 [facility] Comment on above: Performed By: #### T SH, FT3, T4, CMP, LIPID ####[facility] [address]ht[address]edshkw[address] [place] [address]Dr. Mary Ellen Rolon VLDL CALC 31.2 mg/dL Normal [facility] Comment on above: Performed By: #### T SH, FT3, T4, CMP, LIPID ####[facility] Bvvbrdkyot24[address] [place] [address]Dr. Mary Ellen Rolon MICROALBUMIN, RAND URon - mALB <1.3 Normal <=30.0 [facility] Comment on above: Performed By: #### M ALBR ####[facility] [address]ocmekfrpd[address] [place] [address]Dr. Mary Ellen Rolon PROF 14(COMP METB)on 022 Albumin [Mass/Vol] 3.6 g/dL Normal 3.4-5.0 [facility] Comment on above: Performed By: #### T SH, FT3, T4, CMP, LIPID ####[facility] Vumq[address]uzxtg[address] [place] [address]Dr. Mary Ellen Rolon Albumin/Globulin [Mass ratio] 1.1 {ratio} Normal [facility] Comment on above: Performed By: #### T SH, FT3, T4, CMP, LIPID ####[facility] Fqipksmnnr[address] [place] [address]Dr. Mary Ellen Rolon ALP [Catalytic activity/Vol] 77 U/L Normal 46-116 [facility] Comment on above: Performed By: #### T SH, FT3, T4, CMP, LIPID ####[facility] Qetlhjcenl[address] [place] [address]Dr. Mary Ellen Rolon ALT [Catalytic activity/Vol] 22 U/L Normal 14-59 [facility] Comment on above: Performed By: #### T SH, FT3, T4, CMP, LIPID ####[facility] [address]qupjcql[address] [place] [address]Dr. Mary Ellen Rolon Anion gap [Moles/Vol] 11.7 mmol/L Normal [facility] Comment on above: Performed By: #### T SH, FT3, T4, CMP, LIPID ####[facility] Xyjweomzid[address] [place] [address]Dr. Mary Ellen Rolon AST [Catalytic activity/Vol] 12 U/L Critically low 15-37 [facility] Comment on above: Performed By: #### T SH, FT3, T4, CMP, LIPID ####[facility] Qxbejoqfnr62[address] [place] [address]Dr. Mary Ellen Rolon Bilirubin [Mass/Vol] 0.3 mg/dL Normal 0.2-1.0 [facility] Comment on above: Performed By: #### T SH, FT3, T4, CMP, LIPID ####[facility] [address] [place], [place] [address]Dr. Mary Ellen Rolon Calcium [Mass/Vol] 8.6 mg/dL Normal 8.5-10.1 [facility] Comment on above: Performed By: #### T SH, FT3, T4, CMP, LIPID ####[facility] [address] [place], [place] [address]Dr. Mary Ellen Rolon Chloride [Moles/Vol] 103 mmol/L Normal 98-107 [facility] Comment on above: Performed By: #### T SH, FT3, T4, CMP, LIPID ####[facility] L[address] [place], [place] [address]Dr. Mary Ellen Rolon CO2 [Moles/Vol] 27.3 mmol/L Normal 21.0-32.0 [facility] Comment on above: Performed By: #### T SH, FT3, T4, CMP, LIPID ####[facility] Its[address]irm[address] [place], [place] [address]Dr. Mary Ellen Rolon Creatinine [Mass/Vol] 0.67 mg/dL Normal 0.55-1.02 [facility] Comment on above: Performed By: #### T SH, FT3, T4, CMP, LIPID ####[facility] [address] [place] [address]Dr. Mary Ellen Rolon EGFR-AF [place] >60 Normal >=60 [facility] Comment on above: Performed By: #### T SH, FT3, T4, CMP, LIPID ####[facility] [address]liqnicse[address] [place] [address]Dr. Mary Ellen Rolon EGFR-NON AF [place] >60 Normal >=60 [facility] Comment on above: Performed By: #### T SH, FT3, T4, CMP, LIPID ####[facility] Rurlbvqusp[address] [place] [address]Dr. Mary Ellen Rolon Globulin (S) [Mass/Vol] 3.3 g/dL Normal [facility] Comment on above: Performed By: #### T SH, FT3, T4, CMP, LIPID ####[facility] [address]xe[address]fgz[address] [place] [address]Dr. Mary Ellen Rolon Glucose [Mass/Vol] 166 mg/dL Critically high 74-106 [facility] Comment on above: Performed By: #### T SH, FT3, T4, CMP, LIPID ####[facility] Uypluvwvtz[address] [place] [address]Dr. Mary Ellen Rolon Potassium [Moles/Vol] 4.0 mmol/L Normal 3.5-5.1 [facility] Comment on above: Performed By: #### T SH, FT3, T4, CMP, LIPID ####[facility] Is[address]lemnez[address] [place] [address]Dr. Mary Ellen Rolon Protein [Mass/Vol] 6.9 g/dL Normal 6.4-8.2 [facility] Comment on above: Performed By: #### T SH, FT3, T4, CMP, LIPID ####[facility] [address] [place], [place] [address]Dr. Mary Ellen Rolon Sodium [Moles/Vol] 138 mmol/L Normal 136-145 [facility] Comment on above: Performed By: #### T SH, FT3, T4, CMP, LIPID ####[facility] Xnnxkloogp[address] [place] [address]Dr. Mary Ellen Rolon Urea nitrogen [Mass/Vol] 12.0 mg/dL Normal 7.0-18.0 [facility] Comment on above: Performed By: #### T SH, FT3, T4, CMP, LIPID ####[facility] [address] [place], [place] [address]Os. Ginasreekanth Gonzales Urea nitrogen/Creatinine [Mass ratio] 17.9 mg/mg Normal [facility] Comment on above: Performed By: #### T SH, FT3, T4, CMP, LIPID ####[facility] [address] [place], [place] [address]Tk. Mary Ellen Rolon T4on 02-08-2022 T4 [Mass/Vol] 7.00 ug/dL Normal 4.80-13.[address] [facility] Comment on above: Performed By: #### T SH, FT3, T4, CMP, LIPID ####[facility] [address] [place], [place] [address]Ck. Mary Ellen Rolon TSHon 02-08-2022 TSH 3.041 uIU/mL Normal 0.358-3.[address] [facility] Comment on above: Performed By: #### F T4, VITAD #### [facility] [address] [place], [place] [address] CSPINE WO [...] BERKLEY GALINDO Date: 2022-02-01 17:23 Normal [facility] CT HEAD WO CONon 02-01-2022 CT [...] BERKLEY GALINDO Date: 2022-02-01 17:11 Normal [facility] XR HIP RT 2 3V W [...] MALAIKA NORTH Date: 2022-02-01 17:49 Normal [facility] XR HUMERUS RT MIN 2 Von [...] MALAIKA NORTH Date: 2022-02-01 17:47 Normal [facility] XR KNEE BETTYE 4V or >on [...] MEME MONTENEGRO Date: 2021-10-19 16:39 Normal [facility] XR RIBS RT PA Juliet 2 [...] MEME MONTENEGRO Date: 2021-10-19 16:41 Normal [facility] CBC AUTO DIFFon 08-09-2021 BASO # 0.0 103/ul Normal 0.0-0.1 [facility] Comment on above: Performed By: #### C BC ####[facility] [address] [place] [id number]. Mary Ellen Rolon Basophils/100 WBC (Bld) 0.4 % Normal 0.2-2.0 [facility] Comment on above: Performed By: #### C BC ####[facility] [address]ctsr[address] [place] [id number]. Mary Ellen Rolon EO # 0.5 103/ul Normal 0.0-0.7 [facility] Comment on above: Performed By: #### C BC ####[facility] Hkoklqvksb6390 [place] [id number]. Mary Ellen Rolon Eosinophils/100 WBC (Bld) 6.6 % Normal 0.9-7.0 [facility] Comment on above: Performed By: #### C BC ####[facility] [address]oc[address] [place], [place] [address]Dr. Mary Ellen Rolon Erythrocyte distribution width (RBC) [Ratio] 13.9 % Normal 11.0-15.0 [facility] Comment on above: Performed By: #### C BC ####[facility] [address] [place], [place] [address]Dr. Mary Ellen Rolon Hematocrit (Bld) [Volume fraction] 42.6 % Normal 36.0-48.0 [facility] Comment on above: Performed By: #### C BC ####[facility] [address] [place], [place] [address]Dr. Mary Ellen Rolon Hemoglobin (Bld) [Mass/Vol] 13.5 g/dL Normal 12.0-16.0 [facility] Comment on above: Performed By: #### C BC ####[facility] [address]ws[address] [place], [place] [address]Dr. Mary Ellen Rolon IG # 0.04 10e3/ul Critically high 0.00-0.03 [facility] Comment on above: Performed By: #### C BC ####[facility] [address] [place], [place] [id number]. Mary Ellen Rolon IG % 0.5 % Normal 0.0-0.5 [facility] Comment on above: Performed By: #### C BC ####[facility] Xjut[address]ighr[address] [place] [id number]. Mary Ellen Rolon LYMPH # 2.2 103/ul Normal 1.2-3.8 [facility] Comment on above: Performed By: #### C BC ####[facility] Lch[address]rmhqj16[address] [place] [address]Dr. Mary Ellen Rolon Lymphocytes/100 WBC (Bld) 26.9 % Normal 20.5-60.0 [facility] Comment on above: Performed By: #### C BC ####[facility] Lzgwpcpckd36[address] [place] [id number]. Mary Ellen Rolon MANUAL DIFF REQ NO Normal [facility] Comment on above: Performed By: #### C BC ####[facility] Sxijvmbhlv[address] [place] [id number]. Mary Ellen Rolon MCH (RBC) [Entitic mass] 29.2 pg Normal 26.7-34.0 [facility] Comment on above: Performed By: #### C BC ####[facility] Jfsqrulqkh[address] [place] [id number]. Ginasreekanth Rolon MCHC (RBC) [Mass/Vol] 31.7 g/dL Normal 29.9-35.2 [facility] Comment on above: Performed By: #### C BC ####[facility] [address]klfvp[address] [place] [address]Dr. Mary Ellen Rolon MCV (RBC) [Entitic vol] 92.0 fL Normal 81.0-99.0 [facility] Comment on above: Performed By: #### C BC ####[facility] Uvsifbjkmr35[address] [place] [id number]. Mary Ellen Rolon MONO # 0.7 103/ul Normal 0.3-0.8 [facility] Comment on above: Performed By: #### C BC ####[facility] [address]ou[address]qqygp[address] [place] [address]Dr. Mary Ellen Rolon Monocytes/100 WBC (Bld) 8.1 % Normal 1.7-12.0 [facility] Comment on above: Performed By: #### C BC ####[facility] Rsojoywrqr7[address] [place] [address]Dr. Ginasreekanth Rolon NEUT # 4.7 103/ul Normal 1.4-6.5 [facility] Comment on above: Performed By: #### C BC ####[facility] Bznfomykhc[address] [place] [address]DrGilberto Rolon Neutrophils/100 WBC (Bld) 57.5 % Normal 43.0-75.0 [facility] Comment on above: Performed By: #### C BC ####[facility] [address]og[address] [place] [id number]. Mary Ellen Rolon Platelet mean volume (Bld) [Entitic vol] 9.1 fL Critically low 9.5-13.5 [facility] Comment on above: Performed By: #### C BC ####[facility] [address]br[address] [place] [address]DrGilberto Rolon PLT 306 103/ul Normal 150-450 [facility] Comment on above: Performed By: #### C BC ####[facility] Lcrgfokqes[address] [place] [address]DrGilberto Rolon RBC 4.63 106/ul Normal 4.20-5.40 [facility] Comment on above: Performed By: #### C BC ####[facility] Nigomtrbjb[address]007 [place] [address]DrGilberto Rolon WBC 8.2 103/ul Normal 4.0-11.0 [facility] Comment on above: Performed By: #### C BC ####[facility] [address]ovxlskn37[address] [place] [id number]. Mary Ellen Rolon FREE T3on 08-09-2021 FREE T3 3.32 pg/mlL Normal 2.77-5.27 [facility] Comment on above: Performed By: #### T SH, FT3, CMP, LIPID #### [facility] [address], [place] [address] Dr. Mary Ellen Rolon FREE T4on 08-09-2021 Free T4 [Mass/Vol] 1.12 ng/dL Normal 0.78-2.19 [facility] Comment on above: Performed By: #### F T4, VITAD #### [facility] [address] [place] [address] [address] Mary Ellen Rolon GLYCOHEMOGLOBIN A1Con 2021 ADA RECOMMENDATION ADA THERAPEUTIC TARG ET 6.0 - 7.0 ACTION SUGGESTED > 7.0 Normal [facility] Comment on above: Performed By: #### A 1C ####[facility] [address] [place] [address]Dr. Mary Ellen Rolon Glucose [Mass/Vol] 137 mg/dL Normal [facility] Comment on above: Performed By: #### A 1C ####[facility] Rpboktjvht[address] [place] [address]Dr. Mary Ellen Rolon HbA1c (Bld) [Mass fraction] 6.4 % Critically high <=6.0 [facility] Comment on above: Performed By: #### A 1C ####[facility] [address]ercm[address] [place] [address]Dr. Mary Ellen Rolon LIPID PROFILEon 08-09-2021 CHOL-HDL RATIO NORM SEE BELOW Normal [facility] Comment on above: Result Comment: 3.3 - 4.4 LOW RISK 4.4 - 7.1 AVERAGE RISK 7.1 - 11.0 MODERATE RISK >11.0 HIGH RISK Performed By: #### T SH, FT3, CMP, LIPID #### [facility] [address] [place] [address] [address] Mary Ellen Rolon Cholesterol [Mass/Vol] 142 mg/dL Normal <=200 [facility] Comment on above: Performed By: #### T SH, FT3, CMP, LIPID #### [facility] [address] [place] [address] [address] Mary Ellen Rolon Cholesterol in HDL [Mass/Vol] 49 mg/dL Normal [facility] Comment on above: Performed By: #### T SH, FT3, CMP, LIPID #### [facility] [address] [place] [address] [address] Mary Ellen Rolon Cholesterol in LDL [Mass/Vol] 65.6 mg/dL Normal [facility] Comment on above: Performed By: #### T SH, FT3, CMP, LIPID #### [facility] [address] [place] [address] Dr. Mary Ellen Rolon Cholesterol.total/Ch olesterol in HDL [Mass ratio] 2.9 {ratio} Normal [facility] Comment on above: Performed By: #### T SH, FT3, CMP, LIPID #### [facility] [address] [place] [address] [address] Mary Ellen Rolon HDL NORMAL > or = 60 mg/dl - LO W CARDIOVASCULAR RISK <40 mg/dl - HIGH CARDIOVASCULAR RISK Normal [facility] Comment on above: Performed By: #### T SH, FT3, CMP, LIPID #### [facility] [address] [place] [address] Dr. Mary Ellen Rolon LDL CALC NORMAL SEE BELOW Normal [facility] Comment on above: Result Comment: <100 mg/dl OPTIMAL 100 - 129 mg/dl NEAR OR ABOVE OPTIMAL 130 - 159 mg/dl BORDERLINE HIGH 160 - 189 mg/dl HIGH >190 mg/dl VERY HIGH Performed By: #### T SH, FT3, CMP, LIPID #### [facility] [address] [place] [address] Dr. Mary Ellen Rolon Triglyceride [Mass/Vol] 137 mg/dL Normal <=150 [facility] Comment on above: Performed By: #### T SH, FT3, CMP, LIPID #### [facility] [address] [place] [address] Dr. Mary Ellen Rloon VLDL CALC 27.4 mg/dL Normal [facility] Comment on above: Performed By: #### T SH, FT3, CMP, LIPID #### [facility] [address] [place] [address] Dr. Mary Ellen Rolon MICROALB CREAT RATIO RANDOMo n 08-09-2021 mALB 1.7 mg/L Normal <=30.0 [facility] Comment on above: Performed By: #### F T4, VITAD #### [facility] [address] [place] [address] Dr. Mary Ellen Rolon MALB CR RATIO 13.1 mg/g Normal 0.0-29.[address] [facility] Comment on above: Performed By: #### F T4, VITAD #### [facility] [address] [place] [address] [address] Mary Ellen Rolon MALB CR RATIO RANGE SEE BELOW Normal [facility] Comment on above: Result Comment: NO M ICROALBUMINURIA 0-29 MG/G CLINICAL MICROALBUMINURIA 30-300 MG/G MACROALBUMINURIA >300 MG/G Performed By: #### F T4, VITAD #### [facility] [address] [place] [address] [address] Mary Ellen Rolon URINE CREAT 129.89 mg/dL Normal 20.00-300.00 [facility] Comment on above: Performed By: #### F T4, VITAD #### [facility] [address] [place] [address] Dr. Mary Ellen Rolon PROF 14(COMP METB)on 022 Albumin [Mass/Vol] 3.5 g/dL Normal 3.5-5.0 [facility] Comment on above: Performed By: #### T SH, FT3, CMP, LIPID #### [facility] [address] [place] [address] [address] Mary Ellen Rolon Albumin/Globulin [Mass ratio] 1.1 {ratio} Normal [facility] Comment on above: Performed By: #### T SH, FT3, CMP, LIPID #### [facility] [address] [place] [address] Dr. Mary Ellen Rolon ALP [Catalytic activity/Vol] 79 U/L Normal 38-126 [facility] Comment on above: Performed By: #### T SH, FT3, CMP, LIPID #### [facility] [address] [place] [address] [address] Mary Ellen Rolon ALT [Catalytic activity/Vol] 23 U/L Normal 9-52 [facility] Comment on above: Performed By: #### T SH, FT3, CMP, LIPID #### [facility] [address] [place] [address] [address] Mary Ellen Rolon Anion gap [Moles/Vol] 11.7 mmol/L Normal [facility] Comment on above: Performed By: #### T SH, FT3, CMP, LIPID #### [facility] [address] [place] [address] [address] Mary Ellen Rolon AST [Catalytic activity/Vol] 11 U/L Critically low 14-36 [facility] Comment on above: Performed By: #### T SH, FT3, CMP, LIPID #### [facility] [address] [place] [address] Dr. Mary Ellen Rolon Bilirubin [Mass/Vol] 0.4 mg/dL Normal 0.2-1.3 [facility] [facility] Comment on above: Performed By: #### T SH, FT3, CMP, LIPID #### [facility] [address] [place] [address] Dr. Mary Ellen Rolon Calcium [Mass/Vol] 8.6 mg/dL Normal 8.4-10.2 [facility] Comment on above: Performed By: #### T SH, FT3, CMP, LIPID #### [facility] [address] [place] [address] Dr. Mary Ellen Rolon Chloride [Moles/Vol] 104 mmol/L Normal 98-107 [facility] Comment on above: Performed By: #### T SH, FT3, CMP, LIPID #### [facility] [address] [place] [address] Dr. Mary Ellen Rolon CO2 [Moles/Vol] 28.3 mmol/L Normal 22.0-30.0 [facility] Comment on above: Performed By: #### T SH, FT3, CMP, LIPID #### [facility] [address] [place] [address] Dr. Mary Ellen Rolon Creatinine [Mass/Vol] 0.65 mg/dL Normal 0.52-1.04 [facility] Comment on above: Performed By: #### T SH, FT3, CMP, LIPID #### [facility] [address] [place] [address] Dr. Mary Ellen Rolon EGFR-AF MOSOTHO >60 Normal >=60 [facility] Comment on above: Performed By: #### T SH, FT3, CMP, LIPID #### [facility] [address] [address] [address] Mary Ellen Rolon EGFR-NON AF MOSOTHO >60 Normal >=60 [facility] Comment on above: Performed By: #### T SH, FT3, CMP, LIPID #### [facility] [address] [address] [address] Mary Ellen Rolon Globulin (S) [Mass/Vol] 3.3 g/dL Normal [facility] Comment on above: Performed By: #### T SH, FT3, CMP, LIPID #### [facility] [address] [place] [address] Dr. Mary Ellen Rolon Glucose [Mass/Vol] 138 mg/dL Critically high 74-106 [facility] Comment on above: Performed By: #### T SH, FT3, CMP, LIPID #### [facility] [address] [place] [address] Dr. Mary Ellen Rolon Potassium [Moles/Vol] 4.0 mmol/L Normal 3.4-5.0 [facility] Comment on above: Performed By: #### T SH, FT3, CMP, LIPID #### [facility] [address] [place] [address] Dr. Mary Ellen Rolon Protein [Mass/Vol] 6.8 g/dL Normal 6.1-8.2 [facility] Comment on above: Performed By: #### T SH, FT3, CMP, LIPID #### [facility] [address] [place] [address] Dr. Mary Ellen Rolon Sodium [Moles/Vol] 140 mmol/L Normal 137-145 [facility] Comment on above: Performed By: #### T SH, FT3, CMP, LIPID #### [facility] [address] [place] [address] Dr. Mary Ellen Rolon Urea nitrogen [Mass/Vol] 12.0 mg/dL Normal 7.0-17.0 [facility] Comment on above: Performed By: #### T SH, FT3, CMP, LIPID #### [facility] [address] [place] [address] Dr. Mary Ellen Rolon Urea nitrogen/Creatinine [Mass ratio] 18.5 mg/mg Normal [facility] Comment on above: Performed By: #### T SH, FT3, CMP, LIPID #### [facility] [address] [place] [address] Dr. Mary Ellen Rolon TSHon 08-09-2021 TSH 0.209 uIU/mL Critically low 0.470-4.680 [facility] Comment on above: Performed By: #### T SH, FT3, CMP, LIPID #### [facility] [address] [place] [address] Dr. Mary Ellen Rolon TSH RANGE SEE BELOW Normal [facility] Comment on above: Result Comment: <0.3 4 UIU/ml HYPERTHYROID 0.34-5.60 UIU/ml EUTHYROID >5.60 UIU/ml HYPOTHYROID Performed By: #### T SH, FT3, CMP, LIPID #### [facility] [address] [place] [address] Dr. Mary Ellen Rolon VITAMIN D 25 OHon 08-09-2021 VIT D 25-OH 61.5 ng/mL Normal [facility] Comment on above: Performed By: #### F T4, VITAD #### [facility] [address] [place] [address] Dr. Mary Ellen Rolon VIT D RANGES SEE BELOW Normal [facility] Comment on above: Result Comment: <20 ng/mL Vit D deficient 20 - <30 ng/mL Vit D insufficient 30 - 100 ng/mL Vit D sufficient >100 ng/mL Potential Toxicity Performed By: #### F T4, VITAD #### [facility] [address] [place] [address] Dr. Mary Ellen Rolon Vital Signs Date Time Vital Sign Value Performing Clinician Facility 08-05-2024 11:24-0500 Body height 167.64 cm [facility] 08-05-2024 11:24-050 Body mass index (BMI) [Ratio] 25.8 kg/m2 [facility] 08-05-2024 11:24-050 Body weight 72.57 kg [facility] 08-05-2024 11:24-050 Diastolic blood pressure 77 mm[Hg] [facility] 08-05-2024 11:24-0500 Heart rate 83 /min [facility] 08-05-2024 11:24-0500 SaO2% (BldA) [Mass fraction] 98 % [facility] 08-05-2024 11:24-0500 Systolic blood pressure 130 mm[Hg] [facility] 04-23-2024 10:58-0400 Body mass index (BMI) [Ratio] 25.82 kg/m2 Jean Pierrekhadijah Kim DO Work Phone: [facility] 04-23-2024 10:58-0400 Body weight 72.58 kg Jean Pierre Kim DO Work Phone: [facility] 04-23-2024 10:58-0400 Diastolic blood pressure 76 mm[Hg] Jean Pierre Kim DO Work Phone: [facility] 04-23-2024 10:58-0400 Heart rate 81 /min Jean Pierre Kim DO Work Phone: [facility] 04-23-2024 10:58-0400 SaO2% (BldA) [Mass fraction] 97 % Jean Pierre Kim DO Work Phone: [facility] 04-23-2024 10:58-0400 Systolic blood pressure 126 mm[Hg] Jean Pierre Kim DO Work Phone: [facility] 08-22-2023 10:20-0500 Body height 167.6 cm Marquis WALTON Work Phone: [facility] 08-22-2023 10:20-0500 Body mass index (BMI) [Ratio] 25.18 kg/m2 Marquis WALTON Work Phone: [facility] 08-22-2023 10:20-0500 Body weight 70.76 kg Marquis WALTON Work Phone: [facility] 07-02-2023 11:15-0500 Body height 167.64 cm Meme Gong Other [facility] Other 07-02-2023 11:15-0500 Body mass index (BMI) [Ratio] 26.14 kg/m2 Meme Beltran Other [facility] Other 07-02-2023 11:15-0500 Body weight 73.48 kg Meme Gong Other [facility] Other 07-02-2023 11:15-0500 Diastolic blood pressure 71 mm[Hg] Meme Beltran Other [facility] Other 07-02-2023 11:15-0500 SaO2% (BldA) [Mass fraction] 96 % Meme Gong Other [facility] Other 07-02-2023 11:15-0500 Systolic blood pressure 127 mm[Hg] Meme Beltran Other [facility] Other 06-27-2022 10:00-0500 Body height 167.64 cm Le Olexa Other [facility] Other 06-27-2022 10:00-0500 Body mass index (BMI) [Ratio] 29.37 kg/m2 Le Olexa Other [facility] Other 06-27-2022 10:00-0500 Body weight 82.56 kg Le Olexa Other [facility] Other Encounters Encounter Date Encounter Type Care Provider Facility Start: 08-17-2024 End: 08-17-2024 Bamboo claudetteelma Alecia Peoples OT Work Phone: [facility] Start: 08-17-2024 End: 08-17-2024 Bamboo regis Peoples OT Work Phone: [facility] Start: 08-17-2024 End: 08-17-2024 ambulatory Alecia Peoples OT Work Phone: [facility] Comment on above: Closed dislocation o f interphalangeal joint of finger of left hand, subsequent encounter (Primary Dx); Open dislocation of phalanx of hand, subsequent encounter Start: 08-13-2024 End: 08-13-2024 Bamboo flowsheet Lynnette Rexroad OT Work Phone: [facility] Start: 08-13-2024 End: 08-13-2024 Bamboo flowsheet Lynnette Rexroad OT Work Phone: [facility] Start: 08-10-2024 End: 08-10-2024 Bamboo flowsheet Lynnette Rexroad OT Work Phone: [facility] Start: 08-10-2024 End: 08-10-2024 Bamboo flowsheet Lynnette Rexroad OT Work Phone: [facility] Start: 08-10-2024 End: 08-10-2024 ambulatory Lynnette Rexroad OT Work Phone: [facility] Comment on above: Open dislocation of phalanx of hand, subsequent encounter (Primary Dx) Start: 08-06-2024 End: 08-06-2024 ambulatory Lynnette Rexroad OT Work Phone: [facility] Comment on above: Closed dislocation o f interphalangeal joint of finger of left hand, subsequent encounter (Primary Dx); Open dislocation of phalanx of hand, subsequent encounter Start: 08-05-2024 End: 08-05-2024 ambulatory [facility] Work Phone: Start: 08-05-2024 End: 08-05-2024 Patient encounter procedure [facility] Work Phone: Start: 08-04-2024 ambulatory [facility] Start: 07-30-2024 End: 07-30-2024 Bamboo flowsheet Lynnette Rexroad OT Work Phone: [facility] Start: 07-30-2024 End: 07-30-2024 Bamboo flowsheet Lynnette Rexroad OT Work Phone: [facility] Start: 07-30-2024 End: 07-30-2024 ambulatory Lynnette Rexroad OT Work Phone: [facility] Comment on above: Closed dislocation o f interphalangeal joint of finger of left hand, subsequent encounter (Primary Dx) Start: 07-09-2024 End: 07-09-2024 Bamboo flowsheet Lynnette Rexroad OT Work Phone: [facility] Start: 07-09-2024 End: 07-09-2024 Bamboo flowsheet Lynnette Rexroad OT Work Phone: [facility] Start: 07-09-2024 End: 07-09-2024 ambulatory Lynnette Rexroad OT Work Phone: [facility] Comment on above: Closed dislocation o f interphalangeal joint of finger of left hand, subsequent encounter (Primary Dx) Start: 07-06-2024 End: 07-06-2024 Bamboo flowsheet Alecia Peoples OT Work Phone: [facility] Start: 07-06-2024 End: 07-06-2024 Bamboo flowsheet Alecia Peoples OT Work Phone: [facility] Start: 07-06-2024 End: 07-06-2024 ambulatory Alecia Peoples OT Work Phone: [facility] Comment on above: Closed dislocation o f interphalangeal joint of finger of left hand, subsequent encounter (Primary Dx); Open dislocation of phalanx of hand, subsequent encounter Start: 07-02-2024 End: 07-02-2024 Bamboo flowsheet Lynnette Rexroad OT Work Phone: [facility] Start: 07-02-2024 End: 07-02-2024 Bamboo flowsheet Lynnette Rexroad OT Work Phone: [facility] Start: 07-02-2024 End: 07-02-2024 ambulatory Lynnette Baldwin OT Work Phone: [facility] Comment on above: Closed dislocation o f interphalangeal joint of finger of left hand, subsequent encounter (Primary Dx) Start: 06-29-2024 End: 06-29-2024 Bamboo flowsheet Alecia Peoples OT Work Phone: [facility] Start: 06-29-2024 End: 06-29-2024 Bamboo flowsheet Alecia Peoples OT Work Phone: [facility] Start: 06-29-2024 End: 06-29-2024 ambulatory Alecia Peoples OT Work Phone: [facility] Comment on above: Closed dislocation o f interphalangeal joint of finger of left hand, subsequent encounter (Primary Dx); Open dislocation of phalanx of hand, subsequent encounter Start: 06-22-2024 ambulatory [facility] Start: 06-15-2024 End: 06-15-2024 Bamboo flowsheet Alecia Peoples OT Work Phone: [facility] Start: 06-15-2024 End: 06-15-2024 Bamboo flowsheet Alecia Peoples OT Work Phone: [facility] Start: 06-15-2024 End: 06-15-2024 ambulatory Alecia Peoples OT Work Phone: [facility] Comment on above: Closed dislocation o f interphalangeal joint of finger of left hand, subsequent encounter (Primary Dx); Open dislocation of phalanx of hand, subsequent encounter Start: 06-01-2024 End: 06-01-2024 Bamboo flowsheet Alecia Peoples OT Work Phone: [facility] Start: 06-01-2024 End: 06-01-2024 Bamboo flowsheet Alecia Peoples OT Work Phone: [facility] Start: 05-28-2024 End: 05-28-2024 Bamboo flowsheet Alecia Peoples OT Work Phone: [facility] Start: 05-28-2024 End: 05-28-2024 Bamboo flowsheet Alecia Peoples OT Work Phone: [facility] Start: 05-28-2024 End: 05-28-2024 ambulatory Alecia Peoples OT Work Phone: [facility] Comment on above: Closed dislocation o f interphalangeal joint of finger of left hand, subsequent encounter (Primary Dx) Start: 05-25-2024 End: 05-25-2024 Bamboo flowsheet Alecia Peoples OT Work Phone: [facility] Start: 05-25-2024 End: 05-25-2024 Bamboo ironSourceheet Alecia Peoples OT Work Phone: [facility] Start: 05-25-2024 End: 05-25-2024 ambulatory Alecia Peoples OT Work Phone: [facility] Comment on above: Closed dislocation o f interphalangeal joint of finger of left hand, subsequent encounter (Primary Dx); Open dislocation of phalanx of hand, subsequent encounter Start: 05-17-2024 End: 05-17-2024 Telephone encounter Alecia Peoples OT Work Phone: [facility] Comment on above: OT (She had called a nd lm noting she is ready to re-do OT on her R finger in [place]. ); fu (Called her back to inform a new referral is needed, per Alecia, re: sx. She said she will contact the referring provider and request referral to be faxed over. I told her I would call back lauren to schedule.) Start: 05-11-2024 ambulatory [facility] Start: 04-23-2024 End: 04-23-2024 Office outpatient visit 25 minutes Jean Pierre Kim DO Work Phone: [facility] Comment on above: Age-related osteopor osis without current pathological fracture (CMS/HCC) (Primary Dx); Primary osteoarthritis involving multiple joints; Primary hypertension (CMS/HCC); Obstructive sleep apnea syndrome Start: 04-23-2024 End: 04-23-2024 ambulatory JEAN PIERRE KIM Not Available Start: 04-20-2024 End: 04-20-2024 Clinisync Result Encounter Jean Pierre Kim DO Work Phone: [facility] Unsolicited Start: 04-20-2024 End: 04-20-2024 Clinisync Result Encounter Jean Pierre Kim DO Work Phone: [facility] Unsolicited Start: 04-14-2024 ambulatory [facility] Start: 04-08-2024 End: 04-08-2024 ambulatory AUGUSTA MCNAIR Not Available Start: 04-08-2024 End: 04-08-2024 Office outpatient visit 15 minutes Augusta Mcnair DPM Work Phone: [facility] Comment on above: 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); Neuropathy; Corns and callosities; Hammer toes of both feet Start: 04-06-2024 ambulatory [facility] Start: 03-25-2024 End: 03-25-2024 ambulatory [facility] Start: 03-25-2024 End: 03-25-2024 Encounter for preprocedural laboratory examination [facility] Start: 03-19-2024 ambulatory [facility] Start: 03-18-2024 End: 03-18-2024 Bamboo flowsheet Alecia Peoples OT Work Phone: [facility] Start: 03-18-2024 End: 03-18-2024 Bamboo flowsheet Aleciaisamar Peoples OT Work Phone: [facility] Start: 03-18-2024 End: 03-18-2024 Patient encounter procedure Augusta Mcnair DPM Work Phone: [facility] Comment on above: 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); Neuropathy; Corns and callosities; Hammer toes of both feet Start: 03-18-2024 End: 03-18-2024 ambulatory Alecia Peoples OT Work Phone: [facility] Comment on above: Open dislocation of phalanx of hand, subsequent encounter (Primary Dx); Closed dislocation of interphalangeal joint of finger of left hand, subsequent encounter Start: 03-15-2024 End: 03-15-2024 Bamboo flowsheet Alecia Peoples OT Work Phone: [facility] Start: 03-15-2024 End: 03-15-2024 Bamboo ironSourceheet Alecia Peoples OT Work Phone: [facility] Start: 03-15-2024 End: 03-15-2024 ambulatory Alecia Peoples OT Work Phone: [facility] Comment on above: Closed dislocation o f interphalangeal joint of finger of left hand, subsequent encounter (Primary Dx); Open dislocation of phalanx of hand, subsequent encounter Start: 03-12-2024 End: 03-12-2024 ambulatory Alecia Peopels OT Work Phone: [facility] Comment on above: Closed dislocation o f interphalangeal joint of finger of left hand, subsequent encounter (Primary Dx); Open dislocation of phalanx of hand, subsequent encounter Start: 03-10-2024 End: 03-10-2024 ambulatory [facility] Start: 03-05-2024 End: 03-10-2024 Telephone encounter Marquis Ang PA Work Phone: [facility] Comment on above: PT Start: 02-26-2024 End: 02-26-2024 ambulatory AUGUTSA MCNAIR Not Available Start: 02-25-2024 ambulatory [facility] Start: 02-12-2024 End: 02-12-2024 ambulatory AUGUSTA MCNAIR Not Available Start: 02-09-2024 Evaluation and manag ement of inpatient [facility] Start: 02-08-2024 Evaluation and manag ement of inpatient [facility] Start: 02-08-2024 Emergency department patient visit [facility] Start: 02-08-2024 Emergency department patient visit [facility] Start: 02-08-2024 End: 02-09-2024 Evaluation and management of inpatient DENIZ ROLDAN [facility] Start: 02-03-2024 End: 02-03-2024 ambulatory AUGUSTA MCNAIR Not Available Start: 01-28-2024 End: 01-28-2024 ambulatory AUGUSTA MCNAIR Not Available Start: 12-16-2023 End: 12-16-2023 ambulatory [...] Not Available Start: 09-04-2023 Bamboo flowsheet Meme Breen P T Work Phone: [facility] Start: 09-04-2023 Bamboo flowsheet Meme Gunderson Nuha P T Work Phone: [facility] Start: 09-04-2023 End: 09-04-2023 ambulatory Meme Gunderson Nuha PT Work Phone: [facility] Comment on above: Sacroiliac joint scooter n (Primary Dx); Lumbar paraspinal muscle spasm; Lumbar radiculopathy, chronic; Idiopathic scoliosis of thoracolumbar region Start: 09-01-2023 Bamboo flowsheet Meem Gunderson Nuha P T Work Phone: [facility] [...] visit 25 minutes Marquis WALTON Work Phone: [facility] Comment on above: Acute left-sided low back pain without sciatica (Primary Dx); Sacroiliac joint pain; Other idiopathic scoliosis, thoracolumbar region Start: 08-22-2023 End: 08-22-2023 ambulatory MARQUIS ANG Not Available Start: 08-21-2023 End: 08-21-2023 ambulatory AUGUSTA MCNAIR Not Available Start: 07-02-2023 Office outpatient vi sit 25 minutes Meme Gong [facility] Start: 07-02-2023 End: 04-20-2024 Patient encounter procedure Marquis WALTON Work Phone: [facility] Start: 07-02-2023 End: 07-02-2023 ambulatory Meme Gong [facility] [employer] Other Start: 02-24-2023 End: 02-24-2023 ambulatory Jean Pierre Kim Facility:[facility] Start: 02-24-2023 End: 02-24-2023 ambulatory DO Jean Pierre Kim Work Phone: [facility] Work Phone: Start: 02-24-2023 End: 08-07-2023 Discharged Recurring DO Jean Pierre Kim Work Phone: [facility] [place] Work Phone: Start: 01-03-2023 End: 01-03-2023 ambulatory Jean Pierre Kim Facility:[facility] Start: 01-03-2023 End: 01-03-2023 ambulatory DO Jean Pierre Kim Work Phone: [facility] Work Phone: Start: 01-03-2023 End: 01-03-2023 Patient encounter procedure DO Jean Pierre Kim Work Phone: [facility] Work Phone: Start: 01-03-[address] Jairo Muñoz [id number] Start: 06-27-2022 Office outpatient vi sit 15 minutes Le Lam [facility] [place] [facility] Start: 06-27-2022 End: 06-27-2022 ambulatory DO Jean Pierre Kim Work Phone: [facility] Other Start: 06-27-2022 End: 06-27-2022 Patient encounter procedure DO Jean Pierre Kim Work Phone: [facility] [place] [facility] Start: 06-18-2022 End: 06-19-[address] JEAN PIERRE KIM Facility: Start: 05-09-2022 End: 05-09-2022 ambulatory DO Jean Pierre Kim Work Phone: [facility] Work Phone: Start: 05-09-2022 End: 05-09-2022 Discharged Recurring DO Jean Pierre Kim Work Phone: [facility] [place] Start: 03-11-2022 End: 03-11-2022 ambulatory Le Lam Other [facility] Other Start: 03-11-2022 Encounter for other preprocedural examination Le Lam [facility] [place] [facility] Start: 03-11-2022 Office outpatient vi sit 25 minutes Le Gabrielxa [facility] [place] [facility] Start: 02-23-2022 End: 02-23-2022 Patient encounter procedure DO Jean Pierre Kim Work Phone: [facility] [place] Start: 02-19-2022 End: 02-19-2022 ambulatory Le Lam Other [facility] [employer] Other Start: 02-19-2022 Office outpatient vi sit 25 minutes Le Lam [facility] [place] [facility] Start: 02-19-2022 End: 02-19-2022 Patient encounter procedure DO Jean Pierre Kim Work Phone: [facility] [place] [facility] Start: 02-08-2022 End: 02-09-[address] JEAN PIERRE KIM Facility:[facility] Start: 02-01-2022 End: 02-01-[address] JEAN PIERRE KIM Facility:[facility] Start: 10-19-2021 End: 10-20-[address] JEAN PIERRE KIM Facility:[facility] Start: 08-09-2021 End: 08-10-[address] JEAN PIERRE IKM Facility:[facility] Procedures Date Procedure Procedure Detail Performing Clinician Start: 04-20-2024 ALL CBC WITH AUTO DIFF Jean Pierre Kim DO Work Phone: Start: 07-17-2023 Mammography Marquis WALTON Work Phone: [...] Screening for malign ant neoplasm of colon [facility] Start: 04-20-2025 Urine screening for protein Diabetes: Urine Protein Screening [facility] Start: 02-07-2025 Urine screening for protein Diabetes: Urine Protein Screening [facility] Start: 12-16-2024 End: 12-16-2024 Patient encounter procedure 12/16/2024 10:20 AM EDT Office Visit [facility] [address] [place] [id number] Florecita Green MD [address] [place] [address] [facility] Start: 08-24-2024 End: 08-24-2024 Patient encounter procedure 08/24/2024 10:30 AM EST Office Visit [facility] [address] [place] [phone] Jean Pierre Kim DO [address] [place] [address] [facility] Start: 08-20-2024 End: 08-20-2024 ambulatory 08/20/2024 10:00 AM EST Treatment [facility] [address] [place] [address] Rexroad, Lynnette, OT [address] [place] [address] [facility] Start: 08-17-2024 End: 08-17-2024 ambulatory 08/17/2024 10:00 AM EST Treatment [facility] [address] [place] [address] Rexroad, Lynnette, OT [address] [place] [address] [facility] Start: 08-13-2024 End: 08-13-2024 ambulatory 08/13/2024 1:00 PM EST Treatment [facility] [address] [place] [address] Alecia Peoples, OT [address] [place] [address] [facility] Start: 08-10-2024 End: 08-10-2024 ambulatory [facility] Comment on above: Arrived Start: 08-06-2024 End: 08-06-2024 ambulatory 08/06/2024 1:30 PM EST Treatment [facility] [address] [place] [address] Lynnette Baldwin, OT [address] [place] [address] [facility] Start: 08-03-2024 End: 08-03-2024 ambulatory 08/03/2024 2:00 PM EST Treatment [facility] [address] [place] [address] Alecia Peoples, OT [address] [place] [address] [facility] Start: 07-29-2024 Glaucoma screening Diabetes: R etinopathy Screening [facility] Start: 07-20-2024 End: 07-20-2024 ambulatory 07/20/2024 10:00 AM EST Treatment [facility] [address] [place] [address] Alecia Peoples, OT [address] [place] [address] [facility] Start: 07-17-2024 Screening for malign ant neoplasm of breast Mammogram [facility] Start: 07-16-2024 End: 07-16-2024 ambulatory 07/16/2024 10:00 AM EST Treatment [facility] [address] [place] [address] Lynnette Baldwin, OT [address] [place] [address] [facility] Start: 07-13-2024 End: 07-13-2024 ambulatory 07/13/2024 10:00 AM EST Treatment [facility] [address] [place] [address] Alecia Peoples, OT [address] [place] [address] [facility] Start: 07-09-2024 End: 07-09-2024 ambulatory [facility] Comment on above: Arrived Start: 07-06-2024 End: 07-06-2024 ambulatory [facility] Comment on above: Arrived Start: 07-02-2024 Medicare Annual Wellness (AWV) Medicare Annual Wellness (AWV) [facility] Start: 07-02-2024 End: 07-02-2024 ambulatory [facility] Comment on above: Arrived Start: 06-29-2024 End: 06-29-2024 ambulatory [facility] Comment on above: Arrived Start: 06-22-2024 End: 06-22-2024 ambulatory 06/22/2024 12:00 PM EST Treatment [facility] [address] [place] [address] Alecia Peoples, OT [address] [place] [address] [facility] Start: 06-15-2024 End: 06-15-2024 ambulatory 06/15/2024 12:00 PM EST Treatment [facility] [address] [place] [address] Alecia Peoples, OT [address] [place] [address] [facility] Start: 06-11-2024 End: 06-11-2024 ambulatory 06/11/2024 10:00 AM EST Treatment [facility] [address] [place] [address] Alecia Peoples, OT [address] [place] [address] [facility] Start: 06-08-2024 End: 06-08-2024 ambulatory 06/08/2024 1:00 PM EST Treatment [facility] [address] [place] [address] Alecia Peoples, OT [address] [place] [address] [facility] Start: 06-04-2024 End: 06-04-2024 ambulatory 06/04/2024 9:00 AM EST Treatment [facility] [address] [place] [address] Alecia Peoples, OT [address] [place] [address] [facility] Start: 06-01-2024 End: 06-01-2024 ambulatory 06/01/2024 9:00 AM EST Treatment [facility] [address] [place] [address] Alecia Peoples, OT [address] [place] [address] [facility] Start: 05-28-2024 End: 05-28-2024 ambulatory [facility] Comment on above: Arrived Start: 05-25-2024 End: 05-25-2024 ambulatory 05/25/2024 10:00 AM EST Evaluation [facility] [address] [place] [address] Alecia Peoples, OT [address] [place] [address] Arrived [facility] Comment on above: Arrived Start: 05-20-2024 End: 05-20-2024 ambulatory [facility] Start: 05-17-2024 End: 05-17-2024 ambulatory [facility] Start: 05-13-2024 End: 05-13-2024 ambulatory [facility] Start: 05-10-2024 End: 05-10-2024 ambulatory [facility] Start: 05-06-2024 End: 05-06-2024 ambulatory [facility] Start: 05-03-2024 End: 05-03-2024 ambulatory [facility] Start: 04-29-2024 End: 04-29-2024 ambulatory [facility] Start: 04-26-2024 End: 04-26-2024 ambulatory [facility] Start: 04-23-2024 End: 04-23-2024 Patient encounter procedure 04/23/2024 11:00 AM EDT Office Visit [facility] [address] [place] [address] Jean Pierre Kim DO [address] [place] [address] [facility] Start: 04-22-2024 End: 04-22-2024 ambulatory [facility] Start: 04-19-2024 End: 04-19-2024 ambulatory [facility] Start: 04-15-2024 End: 04-15-2024 ambulatory 04/15/2024 1:00 PM EDT Treatment [facility] [address] [place] [address] Alecia Peoples, OT [address] [place] [address] [facility] Start: 04-12-2024 End: 04-12-2024 ambulatory 04/12/2024 1:00 PM EDT Treatment [facility] [address] [place] [address] Alecia Peoples, OT [address] [place] [address] [facility] PT Start: 04-08-2024 End: 04-08-2024 Patient encounter procedure 04/08/2024 2:15 PM EDT Office Visit [facility] [address] [place] [address] Augusta Mcnair DPM [address] [place] [address] [facility] Start: 04-08-2024 End: 04-08-2024 ambulatory 04/08/2024 1:00 PM EDT Treatment [facility] [address] [place] [address] Alecia Peoples, OT [address] [place] [address] [facility] Start: 03-29-2024 End: 03-29-2024 ambulatory 03/29/2024 1:00 PM EDT Treatment [facility] [address] [place] [address] Alecia Peoples, OT [address] [place] [address] [facility] PT Start: 03-25-2024 End: 03-25-2024 ambulatory 03/25/2024 12:00 PM EDT Treatment [facility] [address] [place] [address] Alecia Peoples, OT [address] [place] [address] [facility] PT Start: 03-21-2024 Influenza vaccination Influenza Vacc ine (#1) [facility] Start: 03-18-2024 End: 03-18-2024 ambulatory [facility] Comment on above: Arrived Start: 03-15-2024 End: 03-15-2024 ambulatory [facility] Comment on above: Arrived Start: 12-16-2023 End: 12-16-2023 Patient encounter procedure 12/16/2023 10:20 AM EDT Office Visit [facility] [address] [place] [id number] Florecita Green MD [address] [place] [address] [facility] Start: 11-05-2023 End: 11-05-2023 Patient encounter procedure 11/05/2023 9:45 AM EDT Office Visit [facility] [address] [place] [id number] Jean Pierre Kim DO [address] [place] [address] [facility] Start: 09-26-2023 End: 09-26-2023 Patient encounter procedure 09/26/2023 10:30 AM EST Office Visit [facility] [address] [place] [address] Marquis Ang PA [address] [place] [address] [facility] Start: 09-24-2023 End: 09-24-2023 ambulatory 09/24/2023 11:30 AM EST Treatment [facility] [address] [place] [id number] Meme Breen, PT [address] [place] [address] [facility] Start: 09-22-2023 End: 09-22-2023 ambulatory 09/22/2023 11:15 AM EST Treatment [facility] [address] [place] [address] Meme Breen, PT [address] [place] [address] [facility] Start: 09-19-2023 End: 09-19-2023 ambulatory 09/19/2023 11:15 AM EST Treatment [facility] [address] [place] [address] Meme Breen, PT [address] [place] [address] [facility] Start: 09-15-2023 End: 09-15-2023 ambulatory 09/15/2023 11:45 AM EST Treatment [facility] [address] [place] [address] Meme Breen, PT [address] [place] [address] [facility] Start: 09-12-2023 End: 09-12-2023 ambulatory 09/12/2023 11:15 AM EST Treatment [facility] [address] [place] [address] Meme Breen, PT [address] [place] [address] [facility] Start: 09-10-2023 End: 09-10-2023 ambulatory 09/10/2023 10:00 AM EST Treatment [facility] [address] [place] [address] Meme Breen, PT [address] [place] [address] [facility] Start: 09-04-2023 End: 09-04-2023 ambulatory [facility] Comment on above: Sacroiliac joint scooter n (Primary Dx); Lumbar paraspinal muscle spasm; Lumbar radiculopathy, chronic; Idiopathic scoliosis of thoracolumbar region Start: 09-01-2023 End: 09-01-2023 ambulatory 09/01/2023 2:00 PM EST Evaluation [facility] [address] [place] [address] Meme Breen, PT [address] [place] [phone] Lumbar paraspinal muscle spasm (Primary Dx); Lumbar radiculopathy, chronic; Idiopathic scoliosis of thoracolumbar region; Acute left-sided low back pain without sciatica; Sacroiliac joint pain [facility] Comment on above: Lumbar paraspinal mu scle spasm (Primary Dx); Lumbar radiculopathy, chronic; Idiopathic scoliosis of thoracolumbar region; Acute left-sided low back pain without sciatica; Sacroiliac joint pain Start: 02-13-2023 Medicare Annual Wellness (AWV) Medicare Annual Wellness (AWV) [facility] Start: 11-28-2022 Glaucoma screening Diabetes: R etinopathy Screening [facility] Start: 09-17-2022 Hemoglobin A1c measurement Diabetes: Hemoglobin A1C [facility] Start: 08-09-2022 Urine screening for protein Diabetes: Urine Protein Screening [facility] Start: 03-21-2022 Registered [facility] [place] Start: 02-23-2022 MRI of right shoulder MR shoulder RT wo con [facility] Start: 02-23-2022 End: 02-23-2022 Patient encounter procedure Departed Clinical [facility] [place] Start: 12-28-2019 Pneumococcal Vaccine : 65+ Years (3 - PPSV23 or PCV20) Pneumococcal Vaccine: 65+ Years (3 - PPSV23 or PCV20) [facility] Start: 12-28-2019 Pneumococcal Vaccine : 65+ Years (3 of 3 - PPSV23 or PCV20) Pneumococcal Vaccine: 65+ Years (3 of 3 - PPSV23 or PCV20) [facility] Start: 1950 Screening for malign ant neoplasm of colon [facility] XR Hip - left 3 Views XR hip lef t 2 or 3 views Imaging Routine Sacroiliac joint pain 08/22/2023 11:02 AM EST [facility] Work Phone: XR Lumbar spine View s W flexion and W extension XR lumbar spine 4+ views w flexion extension Imaging Routine Acute left-sided low back pain without sciatica 08/22/2023 11:02 AM [facility] Immunizations Immunization Date Immunization Notes Care Provider Melisa smith 11-03-2023 tetanus toxoid, redu murray diphtheria toxoid, and acellular pertussis vaccine, adsorbed Marquis WALTON Work Phone: [facility] 05-16-2023 zoster vaccine recombinant Marquis WALTON Work Phone: [facility] 04-11-2023 Influenza, Seasonal, Quadrivalent, Adjuvanted Marquis WALTON Work Phone: [facility] 04-11-2023 influenza virus vacc ine, unspecified formulation Marquis WALTON Work Phone: [facility] 03-12-2023 zoster vaccine recombinant Marquis WALTON Work Phone: [facility] 06-13-2021 COVID-19 mRNA, Comir sam (Pfizer) DO Jean Pierre Kim Work Phone: [facility] 10-19-2020 Do not use COVID-19 Pfizer 2 dose Le Olexa Other [facility] 09-29-2020 Do not use COVID-19 Pfizer 2 dose Le Olexa Other [facility] 01-19-2018 pneumococcal conjuga te vaccine, 13 valent Marquis WALTON Work Phone: [facility] 11-07-2016 tetanus toxoid, redu murray diphtheria toxoid, and acellular pertussis vaccine, adsorbed Marquis WALTON Work Phone: [facility] Work Phone: 12-27-2014 pneumococcal polysaccharide vaccine, 23 valent Marquis WALTON Work Phone: [facility] Payers Date Payer Category Payer Self-pay [id number] 2021 Private Health Insurance [id number] 2017 Medicare [id number] 1959 Medicare [id number] 2.1 [id number] 1959 Private Health Insurance [id number] 1959 Private Health Insurance [id number] 1959 Unknown 1952 Unknown [id number] 2.16.84 0.1.380249.3.579.2.593 1952 Unknown [id number] 2.16.84 0.1.328494.3.579.2.593 1952 Unknown [id number] 2.16.84 0.1.233424.3.579.2.593 1952 Unknown [id number] 2.16.84 0.1.790565.3.579.2.593 1952 Unknown [id number] 2.16.84 0.1.591930.3.579.2.593 1952 Unknown [id number] 2.16. 840.1.988087.3.579.2.356 1952 Unknown [id number] 2.16.84 0.1.187678.3.579.2.1259 1952 Unknown [id number] 2.16.84 0.1.936611.3.579.2.1259 1952 Unknown [id number] 2.16.84 0.1.729517.3.579.2.1259 1952 Unknown [id number] 2.16.84 0.1.237299.3.579.2.9 1952 Unknown [id number] 2.16.84 0.1.669201.3.579.2.1258 1952 Unknown [id number] 2.16.84 0.1.865508.3.579.2.1258 1952 Unknown [id number] 2.16.84 0.1.731386.3.579.2.1258 1952 Unknown [id number] 2.16.84 0.1.217381.3.579.2.1258 1952 Unknown [id number] 2.16.84 0.1.297661.3.579.2.1258 1952 Unknown [id number] 2.16.84 0.1.148336.3.579.2.1258 1952 Unknown [id number] 2.16.84 0.1.976891.3.579.2.1258 1952 Unknown [id number] 2.16.84 0.1.989882.3.579.2.1258 1952 Unknown [id number] 2.16.84 0.1.932866.3.579.2.1258 1952 Unknown [id number] 2.16.84 0.1.719807.3.579.2.1258 1952 Unknown [id number] 2.16.84 0.1.116282.3.579.2.1258 1952 Unknown [id number] 2.16.84 0.1.700903.3.579.2.1258 1952 Unknown [id number] 2.16.84 0.1.245378.3.579.2.1258 1952 Unknown [id number] 2.16.84 0.1.883352.3.579.2.1258 1952 Unknown [id number] 2.16.84 0.1.957122.3.579.2.1258 1952 Unknown [id number] 2.16.84 0.1.342665.3.579.2.1258 1952 Unknown [id number] 2.16.84 0.1.384509.3.579.2.1258 1952 Unknown [id number] 2.16.84 0.1.698595.3.579.2.1258 1952 Unknown [id number] 2.16.84 0.1.567038.3.579.2.1258 1952 Unknown [id number] 2.16.84 0.1.688788.3.579.2.1258 1952 Unknown [id number] 2.16.84 0.1.409575.3.579.2.1258 1952 Unknown [id number] 2.16.84 0.1.389126.3.579.2.1258 1952 Unknown [id number] 2.16.84 0.1.112292.3.579.2.1258 1952 Unknown [id number] 2.16.84 0.1.855734.3.579.2.1258 1952 Unknown [id number] 2.16.84 0.1.233055.3.579.2.1258 1952 Unknown [id number] 2.16.84 0.1.346092.3.579.2.1258 1952 Unknown [id number] 2.16.84 0.1.502436.3.579.2.1258 1952 Unknown [id number] 2.16.84 0.1.842819.3.579.2.1258 1952 Unknown [id number] 2.16.84 0.1.398814.3.579.2.1258 1952 Unknown [id number] 2.16.84 0.1.536653.3.579.2.1258 1952 Unknown [id number] 2.16.84 0.1.639977.3.579.2.1259 1952 Unknown [id number] 2.16.84 0.1.597647.3.579.2.1259 1952 Unknown [id number] 2.16.84 0.1.246624.3.579.2.1259 1952 Unknown [id number] 2.16.84 0.1.781074.3.579.2.1259 1952 Unknown [id number] 2.16.84 0.1.037040.3.579.2.1259 Unknown [facility] [id number] Unknown [id number] 2.16.8 40.1.366676.3.579.2.531 Unknown [id number] 2.16.8 40.1.879689.3.579.2.531 Unknown [id number] 2.16.8 40.1.389221.3.579.2.531 Social History Date Type Detail Facility Unknown if ever smoked [facility] Other Start: 07-02-2023 End: 04-23-2024 Sex Assigned At [facility] Start: 12-10-2021 End: 02-05-2024 Tobacco smoking status UTIS Ex-smoker (finding) [facility] Start: 1950 Sex Assigned At Female F [facility] Start: 07-21-1969 End: 07-21-1995 History of tobacco use Current smoker [facility] Start: 07-21-1969 End: 07-21-1995 History of tobacco use Cigarette Smoker [facility] Start: 02-26-2023 End: 07-02-2023 Cigarettes smoked current (pack per day) - Reported 1 [facility] History of tobacco use Passive smoker [facility] Start: 02-26-2023 End: 02-05-2024 Tobacco use and exposure Smokeless tobacco non-user [facility] Start: 08-22-2023 End: 04-23-2024 Alcohol intake Ex-drinker (finding) [facility] How often to you hav e a [...] Identifies as female gender (finding) [facility] Start: 11-05-2023 Alcohol Comment Very rarely [facility] Start: 08-05-2024 Sex Female (finding) [facility] Medical Equipment Procedure Code Equipment Code Equipment Origin al Text Equipment Identifier Dates One test strip b y finger stick once daily [id number] Start: 12-19-2022 USE 1 STRIP TO C HECK GLUCOSE ONCE DAILY [id number] Start: 01-05-2024 Clinical Notes 11-18-2009 to 08-17-2024 Alecia Peoples, OT - 08/17/2024 10:00 AM ESTRhoconor Baldwin, OT - 08/10/2024 9:00 AM ESTRhondaldo Baldwin, OT - 08/06/2024 1:30 PM ESTRjessica Baldwin, OT - 07/30/2024 9:00 AM EST Note Date & Type Note Facility 08-17-2024 History of Present illness Narrative Occupational Therapy Occupational Therapy Treatment Visit Patient Name: Mirta Welsh Today's Date: 08/17/2024 Linked Episodes Type: Episode: Status: Noted: Resolved: Last update: Updated by: Occupational Therapy R MF injury Active 05/25/2024 08/17/2024 11:14 AM Alecia Peoples OT Comments: Visit number: 07/07 Timed Code Treatment minutes: 60 Total Treatment Time: 60 Subjective Pain: Pt reports following last OT session her finger became very sore. Pain persisted a few days before resolving. Does not want IDN today. Overall progress: improving Objective: MT including Fluido x 10 minutes with supervised JASMIN at start of session for tissue preconditioning STM/ DTM for extensive scar massage performed to the entire R hand, PROM to digits 1-3 1x20. AROM digits 1-3 x20. Joint mobilizations complete to PIP of MF and blue rubber band exercises complete 1x20 for AROM with resistance for flexion/extension/ and finger abduction. Red theraputty ex. scar management. PROM/ stretching/ joint mobilization. At this time there has been no significant change in ROM. Pt is set to meet with another ortho for a second opinion. Therapeutic Exercise: Light ROM exercises of 3rd digit Therapeutic Activity: Modalities: Neuro Re-Ed: Assessment/Plan Pt tolerated session well. Continues to have extensor lag of the PIP joint. No AROM from PIP to DIP present. P: Plan to hold therapy til 2nd opnion with ortho in September. Pt in agreement. Pt to call as needed. documented in this encounter [facility] 08-10-2024 History of Present illness Narrative Occupational Therapy Occupational Therapy Treatment Visit Patient Name: Mirta Welsh Today's Date: 08/10/2024 Linked Episodes Type: Episode: Status: Noted: Resolved: Last update: Updated by: Occupational Therapy R MF injury Active 05/25/2024 08/10/2024 9:10 AM Alecia Peoples OT Comments: Visit number: 05/07 Timed Code Treatment minutes: 60 Total Treatment Time: 60 Subjective Pain: No pain noted. Pt reports having apt for second opinion in September. Pt reports having difficulty holding water bottle, coffe cup and opening refrigerator and online banking specialist doors. Overall progress: improving Objective: MT including Fluido x 10 minutes with supervised JASMIN at start of session for tissue preconditioning STM/ DTM for extensive scar massage performed to the entire R hand, PROM to digits 1-3 1x20. AROM digits 1-3 x20. Joint mobilizations complete to PIP of MF and blue rubber band exercises complete 1x20 for AROM with resistance for flexion/extension/ and finger abduction. Red theraputty ex. scar management. PROM/ stretching/ joint mobilization. Dry needling performed by Alecia Amato to R hand for intrinsic tightness. No adverse reaction. Therapeutic Exercise: Light ROM exercises of 3rd digit Therapeutic Activity: Modalities: Neuro Re-Ed: Assessment/Plan Pt tolerated session well. Continues to have extensor lag of the PIP joint. No AROM from PIP to DIP present. Continue to address limited ROM of MF in order to return to I/ADL tasks at discharge. P: Continue with POC, progress per toleration. documented in this encounter [facility] 08-06-2024 History of Present illness Narrative Occupational Therapy Occupational Therapy Treatment Visit Patient Name: Mirta Welsh Today's Date: 08/06/2024 No linked episodes Visit number: 04/07 Timed Code Treatment minutes: 55 Total Treatment Time: 55 Subjective Pain: No pain noted. Pt reports having apt for second opinion in September. Pt reports having difficulty holding water bottle, coffe cup and opening refrigerator and online banking specialist doors. Overall progress: improving Objective: MT including Fluido x 10 minutes with supervised JASMIN at start of session for tissue preconditioning STM/ DTM for extensive scar massage performed to the entire R hand, PROM to digits 1-3 1x20. AROM digits 1-3 x20. Joint mobilizations complete to PIP of MF and blue rubber band exercises complete 1x20 for AROM with resistance for flexion/extension/ and finger abduction. Red theraputty ex. Finger at -25 degrees following session. Pt educated regarding benefits of paraffin or other sources of heat. and she verbalizing understanding. Treatment: Manual: STM/DTM for edema and scar management. PROM/ stretching/ joint mobilization Therapeutic Exercise: Light ROM exercises of 3rd digit Therapeutic Activity: Modalities: Neuro Re-Ed: Assessment/Plan Pt tolerated session well. Continues to have extensor lag of the PIP joint. No AROM from PIP to DIP present. Continue to address limited ROM of MF in order to return to I/ADL tasks at discharge. P: Continue with POC, progress per toleration. documented in this encounter [facility] 08-04-2024 Note Orthopedic Surgery 03/25/2024 Middle Finger Extensor Tendon Repair - Right 08/04/2024 Mirta is a 73y.o. right-hand dominant female here for 4 month follow-up of revision right middle finger extensor mechanism tendon repair. Since her last visit, she has continued working with occupational therapy. She states that the scab overlying the incision over the PIP joint has continued opening specifically when working on PIP joint flexion with OT. This opened on 07/09/24 and she abstained from attending OT until 07/30/24 due to concern of this issue. She has not worn a splint since last visit. She is unable to extend the PIP joint. Pain is well controlled. Denies any numbness or tingling. 06/22/24 Patient has to follow-up now roughly 3 months out from revision right middle finger tendon repair. This completed on 03/25/2024. Since her last visit, she has been completing home stretching, working with occupational therapy, and wearing an extension splint made by the occupational therapist. She states that she has not needed to 2 sessions of formal therapy, but stopped because the dorsal portion of the incision began opening. She is unable to extend at the PIP. She otherwise states pain is well-controlled. She denies any additional complaints. Physical Exam: The incision site is healing well. There is mild erythema, but no drainage or signs of infection. Tenderness is mild and localized to the surgical site. Sensation is present to light touch. Range of motion: Right middle finger PIP is flexed at 45 degrees with no ability to extend PROM of right middle finger PIP can go to -10 degrees from extension without pain Right middle finger DIP can fully flex and extend without pain passively, no extension AROM Assessment: Patient is a 73 year old female six weeks out of revision right middle finger extensor tendon repair on 03/25/24 with her first repair on 02/09/24. She is currently unable to extend her right middle finger and stays around 45 degrees of flexion of her right PIP. Plan: -She has had minimal improvement in extension of the PIP joint. -Continue to use a splint on the right middle finger for 30-60 minutes at a time. -Had a lengthy discussion with the patient regarding surgical management of the PIP joint including fusion of the joint versus silicone implant. -At this point in time, she is interested in receiving a 2nd opinion prior to surgical management. We recommended the patient could see Dr. Brown, but she is interested in seeing someone closer to her home. We have shown the patient how to access the [facility] website to find a hand surgeon closer to her home in [place], [place]. -Follow up YUNG Samuels, MS3 I was physically present with the medical student. I have personally performed (or re-performed) the physical exam and medical decision making for the patient. I personally verified the medical student's documentation. I made pertinent changes as necessary to ensure accurate documentation. Additional Notes/Findings: The finger really looks about the same as it did last time we saw her. She has a near 90 degree extension lag with a 30 degree PIP flexion contracture. We talked about a couple of options that I think are reasonable going forward. I have tried to get that central slip functioning twice now without success, and I think doing that along is probably not a great idea. We talked about fusing the joint in a functional position, and doing a silicone arthroplasty along with some reconstruction of the central slip. She would like to get a second opinion, which I have encouraged her to do. We will see her back if she wishes for me to do anything further with her finger. [facility] 07-30-2024 History of Present illness Narrative Occupational Therapy Occupational Therapy Treatment Visit Patient Name: Mirta Welsh Today's Date: 07/30/2024 Linked Episodes Type: Episode: Status: Noted: Resolved: Last update: Updated by: Occupational Therapy R MF injury Active 05/25/2024 07/30/2024 9:11 AM Alecia Peoples OT Comments: Visit number: 03/07 Timed Code Treatment minutes: 53 Total Treatment Time: 53 Subjective Pain: No pain noted. Pt reports having appointment next fri with sx and a second apt for second opinion in September. Pt reports having difficulty holding water bottle, coffe cup and opening refrigerator and online banking specialist doors. Overall progress: improving Objective: MT including Fluido x 10 minutes with supervised JASMIN at start of session for tissue preconditioning STM/ DTM for extensive scar massage performed to the entire R hand, wrist, PROM to digits 1-3 1x20. AROM digits 1-3 x20 and wrist. Joint mobilizations complete to PIP of MF and blue rubber band exercises complete 1x20 for PROM with resistance for flexion/extension/ and finger abduction. Finger at -25 degrees following session. Pt educated regarding scar message and she verbalizing understanding. Treatment: Manual: STM/DTM for edema and scar management. PROM/ stretching/ joint mobilization Therapeutic Exercise: Light ROM exercises of 3rd digit Therapeutic Activity: Modalities: Neuro Re-Ed: Assessment/Plan Pt tolerated session well. Continues to have extensor lag of the PIP joint. No AROM from PIP to DIP present. Continue to address limited ROM of MF in order to return to I/ADL tasks at discharge. P: Continue with POC, progress per toleration. documented in this encounter [facility] 07-09-2024 History of Present illness Narrative Occupational Therapy Occupational Therapy Treatment Visit Patient Name: Mirta Welsh Today's Date: 07/09/2024 Linked Episodes Type: Episode: Status: Noted: Resolved: Last update: Updated by: Occupational Therapy R MF injury Active 05/25/2024 07/09/2024 9:11 AM Alecia Peoples OT Comments: Visit number: 02/04 Timed Code Treatment minutes: 54 Total Treatment Time: 54 Subjective Pain: No pain noted. Pt reports having had a scab that came off with no further open areas. Overall progress: improving Objective: MT including Fluido x 10 minutes with supervised JASMIN at start of session for tissue preconditioning STM/ DTM for extensive scar massage performed to the entire R hand, wrist, PROM to digits 1-3 1x20. AROM digits 1-3 x20 and wrist. Joint mobilizations complete to PIP of MF and blue rubber band exercises complete 1x20 for PROM with resistance for flexion/extension/ and finger abduction. Finger at -25 degrees following session. Reviewed HEP with patient verbalizing understanding. Treatment: Manual: STM/DTM for edema and scar management. PROM/ stretching/ joint mobilization Therapeutic Exercise: Light ROM exercises of 3rd digit Therapeutic Activity: Modalities: Neuro Re-Ed: Assessment/Plan Pt tolerated session well. Continues to have extensor lag of the PIP joint. No AROM from PIP to DIP present. Continue to address limited ROM of MF in order to return to I/ADL tasks at discharge. P: Continue with POC, progress per toleration. documented in this encounter [facility] 07-06-2024 History of Present illness Narrative Occupational Therapy Occupational Therapy Treatment Visit Patient Name: Mirta Welsh Today's Date: 07/06/2024 Linked Episodes Type: Episode: Status: Noted: Resolved: Last update: Updated by: Occupational Therapy R MF injury Active 05/25/2024 07/06/2024 9:58 AM Alecia Peoples OT Comments: Visit number: 01/05 Timed Code Treatment minutes: 57 Total Treatment Time: 57 Subjective Pain: It always swells up and hurts after therapy then the following day its back to normal . Does have large scab over the dorsal PIP joint at this time. Probably related to sleeping in finger extension splint for long periods of time. Continue to encourage vitamin E and healing of scar. Overall progress: improving Objective: MT including Fluido x 10 minutes with supervised JASMIN at start of session for tissue preconditioning STM/ DTM for extensive scar massage performed to the entire R hand, wrist, PROM to digits 1-3 1x20. AROM digits 1-3 x20 and wrist. Joint mobilizations complete to PIP of MF and blue rubber band exercises complete 1x20 for PROM with resistance for flexion/extension/ and finger abduction. Finger at -25 degrees following session. Reviewed HEP with patient verbalizing understanding. Treatment: Manual: STM/DTM for edema and scar management. PROM/ stretching/ joint mobilization Therapeutic Exercise: Light ROM exercises of 3rd digit Therapeutic Activity: Modalities: Neuro Re-Ed: Assessment/Plan Pt tolerated session well. Continues to have extensor lag of the PIP joint. No AROM from PIP to DIP present. Continue to address limited ROM of MF in order to return to I/ADL tasks at discharge. P: Continue with POC, progress per toleration. documented in this encounter [facility] 07-02-2024 History of Present illness Narrative Occupational Therapy Occupational Therapy Treatment Visit Patient Name: Mirta Welsh Today's Date: 07/02/2024 Linked Episodes Type: Episode: Status: Noted: Resolved: Last update: Updated by: Occupational Therapy R MF injury Active 05/25/2024 07/02/2024 1:26 PM Alecia Peoples OT Comments: Visit number: 11/05 Timed Code Treatment minutes: 60 Total Treatment Time: 60 Subjective Pain: 2/10. Saw ortho on 06/22. He would like her to continue with OT. Overall progress: improving Objective: MT including Fluido x 10 minutes with supervised JASMIN at start of session for tissue preconditioning STM/ DTM for extensive scar massage performed to the entire R hand, wrist, PROM to digits 1-3 1x20. AROM digits 1-3 x20 and wrist. Joint mobilizations complete to PIP of MF and blue rubber band exercises complete 1x20 for PROM with resistance. Finger at -25 degrees following session. Reviewed HEP with patient verbalizing understanding. Treatment: Manual: STM/DTM for edema and scar management. PROM/ stretching/ joint mobilization Therapeutic Exercise: Light ROM exercises of 3rd digit Therapeutic Activity: Modalities: Neuro Re-Ed: Assessment/Plan Pt tolerated session well. Continues to have extensor lag of the PIP joint. Continue to address limited ROM of MF in order to return to I/ADL tasks at discharge. P: Continue with POC, progress per toleration. documented in this encounter [facility] 06-29-2024 History of Present illness Narrative Occupational Therapy Occupational Therapy Treatment Visit Patient Name: Mirta Welsh Today's Date: 06/29/2024 Linked Episodes Type: Episode: Status: Noted: Resolved: Last update: Updated by: Occupational Therapy R MF injury Active 05/25/2024 06/29/2024 1:57 PM Alecia Peoples OT Comments: Visit number: 10/05 Timed Code Treatment minutes: 60 Total Treatment Time: 60 Subjective Pain: 2/10. Saw ortho on 06/22. He would like her to continue with OT. If she remains stiff over the next 6 weeks he would consider a transfer of an alternative extensor slip or possible need for fusion at the PIP joint. Overall progress: improving Objective: 55' MT including Fluido x 10 minutes with supervised JASMIN at start of session for tissue preconditioning STM/ DTM for extensive scar massage performed to the entire R hand, wrist, PROM to digits 1-3 1x20. AROM digits 1-3 x20 and wrist. Joint mobilizations complete to PIP of MF and blue rubber band exercises complete 1x20 for PROM with resistance. Finger at -25 degrees following session. Extension splint reapplied to hand. Reviewed HEP with patient verbalizing understanding. Treatment: Manual: STM/DTM for edema and scar management. PROM/ stretching/ joint mobilization Therapeutic Exercise: Light ROM exercises of 3rd digit Therapeutic Activity: Modalities: Neuro Re-Ed: Assessment/Plan Pt tolerated session well. Continues to have extensor lag of the PIP joint. Continue to address limited ROM of MF in order to return to I/ADL tasks at discharge. P: Continue with POC, progress per toleration. documented in this encounter [facility] 06-22-2024 Note Orthopedic Surgery 03/25/2024 Middle Finger Extensor Tendon Repair - Right 06/22/24 Patient has to follow-up now roughly 3 months out from revision right middle finger tendon repair. This completed on 03/25/2024. Since her last visit, she has been completing home stretching, working with occupational therapy, and wearing an extension splint made by the occupational therapist. She states that she has not needed to 2 sessions of formal therapy, but stopped because the dorsal portion of the incision began opening. She is unable to extend at the PIP. She otherwise states pain is well-controlled. She denies any additional complaints. 05/11/24 Patient is a 73 year old female six weeks out of revision right middle finger extensor tendon repair on 03/25/24 with her first repair on 02/09/24. She has been wearing a finger extension splint from her occupational therapist. She is unable to extend her right finger at the PIP joint. She reports that her skin is still red, but her incision is slowly improving. Denies any numbness/tinging. No fevers, chills, or consitutional symptoms. 04/14/24 Mirta Welsh comes in for a post-operative visit after having a right long finger extensor repair done on 03/25/2024. She comes in today because she is a [...] is present to light touch. Range of motion: Right middle finger PIP is flexed at 45 degrees with no ability to extend PROM of right middle finger PIP can go to -10 degrees from extension without pain Right middle finger DIP can fully flex and extend without pain passively, no extension AROM Assessment: Patient is a 73 year old female six weeks out of revision right middle finger extensor tendon repair on 03/25/24 with her first repair on 02/09/24. She is currently unable to extend her right middle finger and stays around 45 degrees of flexion of her right PIP. Will continue to follow closely. Plan: -Conservative versus surgical treatment options; recommend conservative at this time. -Education regarding stretching and tensioning exercises -Encourage her to continue with occupational therapy to improve motion -If she is able to obtain more extension at her follow up visit, we will consider a transfer of an alternative extensor slip. If she remains stiff, we discussed the possible need for fusion at the PIP joint -Follow up in six weeks to assess progress Alfredo Daniel MD Orthopaedic Surgery, PGY-2 06/22/24 3:22 PM By using the attestations below, the signing clinician agrees that I have read and verify that the documentation has been personally reviewed by me and ensure that the documentation accurately reflects the encounter. GC: I personally saw this patient on the day of the encounter, performed the soto portion(s) of the service and participated in the management and confirm the resident's documentation. Please note there may be an additional personal documentation from me. [facility] 06-15-2024 History of Present illness Narrative Occupational Therapy Occupational Therapy Treatment Visit Patient Name: Mirta Welsh Today's Date: 06/15/2024 Linked Episodes Type: Episode: Status: Noted: Resolved: Last update: Updated by: Occupational Therapy R MF injury Active 05/25/2024 06/15/2024 2:06 PM Alecia Peoples OT Comments: Visit number: 10/05 Timed Code Treatment minutes: 60 Total Treatment Time: 60 Subjective Pain: 08/30. Pt reports I dried my splint in the dryer and it is ruined. The spot on my knuckle is healed, however it is scabbed over at the moment and I am still waiting to heal it. I did call [facility] and they were hoping you could make me a splint Overall progress: improving Objective: 30' MT including extensive scar massage performed to the entire R hand, wrist, PROM to digits 1-3 1x20. AROM digits 1-3 x20 and wrist. Aluminum Foam placed on finger in extension for support with coban applied. PT also received gripping exercises secondary to complaints of total hand weakness. Verbalized understanding. Treatment: Manual: STM/DTM for edema and scar management. PROM/ stretching/ joint mobilization Therapeutic Exercise: Light ROM exercises of 3rd digit Therapeutic Activity: Modalities: Neuro Re-Ed: Assessment/Plan Pt tolerated session well. Continues to have extensor lag of the PIP joint. Continue to address limited ROM of MF in order to return to I/ADL tasks at discharge. P: Continue with POC, progress per toleration. documented in this encounter [facility] 05-28-2024 History of Present illness Narrative Occupational Therapy Occupational Therapy Treatment Visit Patient Name: Mirta Welsh Today's Date: 05/28/2024 Linked Episodes Type: Episode: Status: Noted: Resolved: Last update: Updated by: Occupational Therapy R MF injury Active 05/25/2024 05/28/2024 12:33 PM Alecia Peoples OT Comments: Visit number: 09/07 Timed Code Treatment minutes: 60 Total Treatment Time: 60 Subjective Pain: 10. The araceli tape worked well but I ended up taking it off to use my hand for something. I was able to give my dog a bath the other day. It doesn't really hurt unless I hit it on something Does have 1cm whole on the dorsal aspect of the PIP that remains open. Overall progress: improving Objective: 30' MT including extensive scar massage performed to the entire R hand, wrist, PROM to digits 1-3 1x20. AROM digits 1-3 x20 and wrist. 30' RAQUEL complete with NMES placed on extensor tendon 10/10 with supervised AROM of wrist and digits. Intensity at 30 x10 minutes. Steri-strip placed on PIP and araceli tape applied to MF/LF. Treatment: Manual: STM/DTM for edema and scar management. PROM/ stretching/ joint mobilization Therapeutic Exercise: Light ROM exercises of 3rd digit Therapeutic Activity: Modalities: Neuro Re-Ed: Assessment/Plan Pt tolerated session well. Continues to have extensor lag of the PIP joint. Continue to address limited ROM of MF in order to return to I/ADL tasks at discharge. P: Continue with POC, progress per toleration. documented in this encounter [facility] 05-25-2024 History of Present illness Narrative Occupational Therapy Occupational Therapy Evaluation Visit Patient Name: Mirta Welsh Today's Date: 05/25/2024 Linked Episodes Type: Episode: Status: Noted: Resolved: Last update: Updated by: Occupational Therapy R MF injury Active 05/25/2024 05/25/2024 9:59 AM Alecia Peoples OT Comments: Visit number: 1 ( 12 approved) Subjective 73 y/o female presents with chief complaint of limited ROM and pain of the R MF s/p revision of her right middle finger extensor tendon repair on 03/25/2024. Pt previously underwent right long finger central slip and collateral ligament repair done on 02/09/2024. She was placed in multiple splints with current one being a PIP extension splint in which she wears only at night at this time. She continues to not be able to extend her finger at the PIP joint. States On Halloween, a suture and gauze came out of the wound. The incision feels better. But it did open up a bit . Mostly concerned about ability to extend finger at this time. Per ortho let the wound heal for a while and do blocking exercises . Pain: is sporadic. Is not currently taking anything for pain at present time. Imagin03/10/2024 2:52 PM EDT Status post surgical pinning of third PIP joint. Joint alignment appears anatomic. Small fracture fragment medial to the base of the third middle phalanx. *Osteoarthritis of the triscaphe, first CMC, DIP joints. Prior Level of Function: I with all self-care and functional mobility tasks. Continues to drive. Precautions: revision right middle finger extensor tendon repair on 03/25/24 Objective PRWHE Pain Score: 40/50 ( sporadic) PRWHE Functional Score: 80/100 Hand/Wrist Musculoskeletal Exam Inspection Right Edema: moderate Deformity: moderate Hand - prior incision: midaxial Incisional drainage: present Palpation Right Middle tenderness to palpation: proximal phalanx, metacarpophalangeal joint and middle phalanx Range of Motion Right Hand Middle distal interphalangeal range of motion: 20. Middle proximal interphalangeal joint range of motion: 85. Middle metacarpal phalangeal joint range of motion: 55. Treatment: Education: HEP education with demonstration, Educated on Eval Findings and POC Manual Therapy: Passive ROM, Joint mobilization, Soft Tissue Mobilization, Myofascial Release, Muscle Energy Technique, Neural Mobilization, Myofascial Cupping, Dry Needling, IASTM, and Scar mobilization Therapeutic Exercise: Strength, Endurance, Flexibility, ROM, HEP, and Power Therapeutic Activity: Exercises to improve dynamic activities, functional tasks, functional mobility to return to prior activity level Neuromuscular re-education: Muscle Facilitation and Dynamic Stability Modalities: Heat, Ice, Electrical Stimulation, Ultrasound, Iontophoresis, and Fluidotherapy Today: Fluido x10 minutes to R hand. STM/ DTM and joint blocking complete to R MF 1x15. Stateless Stem complete to wrist extensors 10 on/10 off while patient actively attempted to raise finger off table with good toleration. Kineseotape applied to finger as well as araceli tape in order to decrease extensor lag. Pt verbalizing understanding of wear times. Assessment/Plan Short Term Goals: Pt will be independent with home exercise program for light strengthening and ROM at discharge. Health Information Technologist Goals: PRWHE Pain Score < 10/50 ( IE: 40/50) PRWHE Functional Score < 15/100 ( IE: 80/100 ) Increase R MF extension to at least -20 at discharge. Pt to be able to actively touch DPC crease with all fingers at discharge. Pt to increase community relations assistant strength by 10# and LP by 2# pain free at discharge per protocol. Pt will be able to use right UE in light daily activities. Pt will benefit from skilled OT to address the above impairments for 2x/week for 6 weeks. I hereby deem this POC medically necessary. Please sign below. Date: documented in this encounter [facility] 05-17-2024 Note Patient requesting O T referral sent to fax# [phone] [facility] 05-17-2024 Telephone encounter Note Looking in for referral, the referral she has has been closed. Should she be notified that a new referral is needed? [facility] 05-17-2024 Miscellaneous Notes Looking in for referral, the referral she has has been closed. Should she be notified that a new referral is needed? documented in this encounter [facility] 05-11-2024 Note Orthopedic Surgery 03/25/2024 Middle Finger Extensor Tendon Repair - Right 05/11/24 Patient is a 73 year old female six weeks out of revision right middle finger extensor tendon repair on 03/25/24 with her first repair on 02/09/24. She has been wearing a finger extension splint from her occupational therapist. She is unable to extend her right finger at the PIP joint. She reports that her skin is still red, but her incision is slowly improving. Denies any numbness/tinging. No fevers, chills, or consitutional symptoms. 04/14/24 Mirta Welsh comes in for a post-operative visit after having a right long finger extensor repair done on 03/25/2024. She comes in today because she is a [...] is present to light touch. Range of motion: Right middle finger PIP is flexed at 45 degrees with no ability to extend PROM of right middle finger PIP can go to -10 degrees from extension without pain Right middle finger DIP can fully flex and extend without pain passively, no extension AROM Assessment: Patient is a 73 year old female six weeks out of revision right middle finger extensor tendon repair on 03/25/24 with her first repair on 02/09/24. She is currently unable to extend her right middle finger and stays around 45 degrees of flexion of her right PIP. Will continue to follow closely. Plan: -Conservative versus surgical treatment options; recommend conservative at this time -Education on anatomy of extensor tendon -Education regarding stretching and tensioning exercises -Low suspicion for infection as improving skin around incision -Follow up in six weeks Bebeto Be Medical Student [facility] I was physically present with the medical student. I have personally performed (or re-performed) the physical exam and medical decision making for the patient. I personally verified the medical student's documentation. I made pertinent changes as necessary to ensure accurate documentation. Additional Notes/Findings: She still has a significant extension lag. I think we just need to let the wound heal for a while and do some blocking exercises. I will see her back in a couple months. [facility] 04-14-2024 Note Orthopedic Surgery 03/25/2024 Middle Finger Extensor Tendon Repair - Right Mirta Welsh comes in for a post-operative visit [...] get more extension with her splint.. Assessment: Mirta Welsh is a 73 y.o. year old [...] that the extensor mechanism will scarred together. [facility] 04-08-2024 History of Present illness Narrative Images from the original note were not included. HPI: Patient presents today to for DM shoe recheck. Shoes were ordered from Dr. Comfort, style melchor black 8.5W. Insoles were ordered from Dr. Alonso. Required paperwork has been completed including needed documentation from the patient's PCP/Physical Therapy Asst. Pt states the new shoes feel like they are rubbing on both of her great toes. No other complaints. Exam: Diabetic shoes and inserts: Date of diabetic foot exam: 08/21/23 Previous amputation of the foot were part of the foot: No History of previous ulceration of the foot: No History of pre-ulcerative callus of the foot: Yes Peripheral neuropathy with evidence of callus formation: Yes Foot deformity: Yes Poor circulation: No Patient's DM shoes with inserts fit well to her feet without any areas of rubbing or pain. General Examination: GENERAL APPEARANCE: awake, aware of surroundings, in no acute distress Foot Exam: 01/28/24 Vascular: DORSALIS PEDIS PULSE: 2/4, bilaterally POSTERIOR TIBIAL PULSE: 2/4, bilaterally TEMPERATURE GRADIENT: warm to cool EDEMA: none CAPILLARY FILLING TIME(sec): capillary fill inact bilateral digits less than 3 secs Neurologic: NEUROLOGIC: light touch is intact to the plantar foot VIBRATORY: decreased to the hallux IPJ bilateral SEMMES-MACARIO 5.07 MONOFILAMENT: intact to the plantar ball of the foot and toes bilateral Dermatologic: SKIN FINDINGS: normal, varicosities to the bilateral LE HYPERKERATOSIS: between the 4th and 5th toes left, plantar ball of the foot bilateral NAIL PATHOLOGY: digits 1-5 bilateral are intact. Thickness and incurvation to the hallux nails bilateral SKIN PATHOLOGY: texture, turgor, hair growth, within normal limits Orthopedic: FOOT MORPHOLOGY: neutral JOINT RANGE OF MOTION: Without pain or crepitus to the ankle, subtalar joint DEFORMITIES: Hammertoes 2 through 4 bilateral PAIN ELICITED WITH PALPATION OF: Along the callus site left fourth and fifth digits, slight pain to the ingrown toenails bilateral PAIN ELICITED WITH ROM: none MUSCLE STRENGTH: 5/5 for all pedal groups tested Diabetic shoes and inserts: Date of diabetic foot exam: 01/28/24 Previous amputation of the foot were part of the foot: No History of previous ulceration of the foot: No History of pre-ulcerative callus of the foot: Yes Peripheral neuropathy with evidence of callus formation: Yes Foot deformity: Yes Poor circulation: No Patient's DM shoes with inserts fit well to her feet without any areas of rubbing or pain. Assessments: Roula martin Hammertoe deformity Ingrown toenail Bilateral foot pain Plan: Diabetes: Feet were inspected and there is no evidence of new areas of redness, sores or hyperkeratosis from use of the diabetic shoes. Advised patient on the continued use of the DM shoes and replacing the insoles, if applicable. Discussed continued proper diabetic foot care and routine monitoring of the feet to prevent complications. Advised patient that if they notice any change or problems developing, they should call the office for an urgent appointment. Otherwise, patient can follow-up as scheduled for diabetic nail care or at least yearly for a diabetic foot check and to be fitted for a new pair of DM shoes and inserts. Hammertoe: 1. Discussed with patient the findings of the examination and further options for treatment including conservative and surgical treatment of the deformities. 2. Specifically discussed with the patient conservative treatment including shoe gear modification, stretching of the shoes, corrective splinting which may alleviate some tenderness but does not provide long-term correction of the deformity and padding with silpos vs. use of crest pads for splinting. 3. Briefly discussed with the patient the surgical options for correction of the deformity including hammertoe arthrodesis vs, arthroplasty and addressing the deformity at the MPJ if applicable and the associated surgical procedure, complications and recovery time. Based on the proximal nature of the hammertoe I do feel that the patient would be of a candidate for a flexor tenotomy. We discussed the benefits of this procedure be more minimally invasive as well as the shortened recovery time. documented in this encounter [facility] 04-06-2024 Note [id number] Hung Welsh 1950 F Date Provider Department Center 04/06/2024 [id number] [place] MP OT Medical Pavi No family history on file [facility] 04-06-2024 Note Occupational Therapy Orthosis/Splint Evaluation Patient Name: Mirta Welsh Today's Date: 04/08/2024 Treatment time in: [...] Reason for plan status: Patient achieved goals [facility] 04-06-2024 Note Orthopedic Surgery 03/25/2024 Middle Finger Extensor Tendon Repair - Right Mirta Welsh comes in for a post-operative visit [...] motion is appropriate for this time. Assessment: Mirta Welsh is a 73 y.o. year old [...] her back in the clinic 4 wks. [facility] 03-25-2024 Note Patient: Mirta aguila Procedure Summary Date: 03/25/24 Room / Location: [address] OR Anesthesia Start: 1217 Anesthesia Stop: 1314 [...] per anesthesia protocol. No notable events documented. [facility] 03-25-2024 Note Patient: Mirta aguila Procedure Summary Date: 03/25/24 Room / Location: [address] [place] Anesthesia Start: 1217 Anesthesia Stop: 1314 Procedure: MIDDLE FINGER EXTENSOR TENDON REPAIR (Right: Middle Finger) Diagnosis: Tendon pain (Tendon pain [M79.10]) Surgeons: Deniz Roldan MD Responsible Provider: Thompson Ospina MD Anesthesia Type: MAC ASA Status: 2 Anesthesia Post Transport Note Transport to: [facility] PACU O2 Route: room air Patient Monitor: direct observation Transport: uneventful Patient condition is: stable Comments: Patient arousable, VSS, SV well, report to RN [facility] 03-25-2024 Note Patient: Mirta aguila Procedure Information Date/Time: 03/25/24 1200 Procedure: MIDDLE FINGER EXTENSOR TENDON REPAIR (Right: Middle Finger) - REQUEST AFTERNOON START Location: [facility] OR [address] [place] [address] OR Surgeons: Deniz Roldan MD Relevant Problems [...] Plan discussed with attending. Additional Equipment Requests [facility] 03-19-2024 Note Orthopedic Surgery 02/09/2024 I&d, Pinning Right Long Finger - Right, Repair, Extensor Tendon, Finger - Right, and Repair, Ligament, Ulnar Collateral - Right Mirta Welsh comes in for a post-operative visit [...] extension lag at the PIP joint. Assessment: Mirta Welsh is a 73 y.o. year old [...] there is any infection that is present. [facility] 03-18-2024 History of Present illness Narrative Images from the original note were not included. HPI: Patient presents today to for DM shoe recheck. Shoes were ordered from Dr. Alonso, casey cast 8.5W. Insoles were ordered from Dr. Alonso. Required paperwork has been completed including needed documentation from the patient's PCP/Physical Therapy Asst. Pt states the new shoes feel like they are rubbing on both of her great toes. No other complaints. Exam: Diabetic shoes and inserts: Date of diabetic foot exam: 08/21/23 Previous amputation of the foot were part of the foot: No History of previous ulceration of the foot: No History of pre-ulcerative callus of the foot: Yes Peripheral neuropathy with evidence of callus formation: Yes Foot deformity: Yes Poor circulation: No Patient's DM shoes with inserts fit well to her feet without any areas of rubbing or pain. General Examination: GENERAL APPEARANCE: awake, aware of surroundings, in no acute distress Foot Exam: 01/28/24 Vascular: DORSALIS PEDIS PULSE: 2/4, bilaterally POSTERIOR TIBIAL PULSE: 2/4, bilaterally TEMPERATURE GRADIENT: warm to cool EDEMA: none CAPILLARY FILLING TIME(sec): capillary fill inact bilateral digits less than 3 secs Neurologic: NEUROLOGIC: light touch is intact to the plantar foot VIBRATORY: decreased to the hallux IPJ bilateral SEMMES-MACARIO 5.07 MONOFILAMENT: intact to the plantar ball of the foot and toes bilateral Dermatologic: SKIN FINDINGS: normal, varicosities to the bilateral LE HYPERKERATOSIS: between the 4th and 5th toes left, plantar ball of the foot bilateral NAIL PATHOLOGY: digits 1-5 bilateral are intact. Thickness and incurvation to the hallux nails bilateral SKIN PATHOLOGY: texture, turgor, hair growth, within normal limits Orthopedic: FOOT MORPHOLOGY: neutral JOINT RANGE OF MOTION: Without pain or crepitus to the ankle, subtalar joint DEFORMITIES: Hammertoes 2 through 4 bilateral PAIN ELICITED WITH PALPATION OF: Along the callus site left fourth and fifth digits, slight pain to the ingrown toenails bilateral PAIN ELICITED WITH ROM: none MUSCLE STRENGTH: 5/5 for all pedal groups tested Diabetic shoes and inserts: Date of diabetic foot exam: 01/28/24 Previous amputation of the foot were part of the foot: No History of previous ulceration of the foot: No History of pre-ulcerative callus of the foot: Yes Peripheral neuropathy with evidence of callus formation: Yes Foot deformity: Yes Poor circulation: No Patient's DM shoes with inserts fit well to her feet without any areas of rubbing or pain. Assessments: Helabdifatah francoise Hammertoe deformity Ingrown toenail Bilateral foot pain Plan: Patient was fitted for and dispensed their extra depth diabetic shoes (A5500). Patient was instructed on the gradual break-in of the shoes and inserts. Patient also instructed on use of the custom molded insoles (A5514) and the gradual break-in for these and continued use for the year. There is certification from the physician managing the patients diabetes. The shoes were fitted with custom-made multi-density custom insoles. Their purpose is to allow extra depth and to accommodate the patients anatomy and deformity to prevent ulceration, irritation, or other complications associated with the patients medical history. Use of rotating new pair of insoles was discussed. Proper use and care were reviewed. They are able to ambulate without distress in shoes and insoles. The diabetic shoes fit well when sized to the patients feet. The patient was evaluated by the physician while wearing the diabetic shoes and insoles and the fit was found to be satisfactory. Acknowledgement for receiving was signed. At that time, the shoes and insoles were dispensed, it was suitable for their condition and not substandard. Written and verbal instructions and warranty information were given as well as the list of the current Durable Medical Equipment Supplier Guidelines and Complaint Resolution if requested. All questions were answered and they were instructed to call the office with any questions or problems, and the patient is to watch for areas of rubbing, blister formation, or any other signs of abnormal pressure. If this occurs, the patient is to contact the office immediately. Patient is to return in 3 weeks for recheck or as scheduled. documented in this encounter [facility] 03-18-2024 History of Present illness Narrative Occupational Therapy Occupational Therapy Treatment Visit Patient Name: Mirta Welsh Today's Date: 03/18/2024 Linked Episodes Type: Episode: Status: Noted: Resolved: Last update: Updated by: Occupational Therapy R MF dislocation Active 03/12/2024 03/18/2024 1:11 PM Alecia Peoples OT Comments: Visit number: 10/05 Timed Code Treatment minutes: 61 Total Treatment Time: 61 Subjective Pain: 2/10. It has remained swollen. I emailed my PCP and other than that I am on that antibiotic for infection but something is not right. It feels warm to touch, its painful Overall progress: improving Objective: 30' MT including extensive scar massage performed to the entire L hand, wrist, PROM to digits 1-3 1x20. AROM digits 1-3 x20 and wrist. Thumb ABD 1x20. US complete 1.2 mgz to incision for scar tissue management around the incision with good toleration. 30' RAQUEL complete with NMES placed on extensor tendon 10/10 with supervised AROM of wrist and digits. Intensity at 30 x10 minutes. Discontinued extension splint secondary to edema and pain at this time. Did trial kineseotape for edema management. Encouraged patient to call orthopedic doctor in order to receive an appt for him to look at it and determine if swelling/redness is normal for this type on injury. Pt verbalizing understanding Treatment: Manual: STM/DTM for edema and scar management. PROM/ stretching/ joint mobilization Therapeutic Exercise: Light ROM exercises of 3rd digit Therapeutic Activity: Modalities: Neuro Re-Ed: Assessment/Plan Pt tolerated session well. Pain at PIP joint. Finger remains very swollen limiting full ROM in all exercises to be obtained. Continue to address limited ROM of MF in order to return to I/ADL tasks at discharge. P: Continue with POC, progress per toleration. documented in this encounter [facility] 03-15-2024 History of Present illness Narrative Occupational Therapy Occupational Therapy Treatment Visit Patient Name: Mirta Welsh Today's Date: 03/15/2024 Linked Episodes Type: Episode: Status: Noted: Resolved: Last update: Updated by: Occupational Therapy R MF dislocation Active 03/12/2024 03/15/2024 11:26 AM Alecia Peoples OT Comments: Visit number: 09/07 Timed Code Treatment minutes: 61 Total Treatment Time: 61 Subjective Pain: 2/10. I just cannot get it straight no matter what I do it just stayes swollen and red . Per patient ortho did give Overall progress: improving Objective: 30' MT including extensive scar massage performed to the entire L hand, wrist, PROM to digits 1-3 1x20. AROM digits 1-3 x20 and wrist. Thumb ABD 1x20. US complete 1.2 mgz to incision for scar tissue management around the incision with good toleration. 30' RAQUEL complete with NMES placed on extensor tendon 10/10 with supervised AROM of wrist and digits. Intensity at 30 x10 minutes. Pt placed in PIP extension splint at end of session to maximize ROM of the PIP joint. Wear times discussed. Pt verbalizing understanding Treatment: Manual: STM/DTM for edema and scar management. PROM/ stretching/ joint mobilization Therapeutic Exercise: Light ROM exercises of 3rd digit Therapeutic Activity: Modalities: Neuro Re-Ed: Assessment/Plan Pt tolerated session well. Pain at PIP joint. Finger remains swollen limiting full ROM in all exercises to be obtained. Continue to address limited ROM of MF in order to return to I/ADL tasks at discharge. P: Continue with POC, progress per toleration. documented in this encounter [facility] 03-12-2024 History of Present illness Narrative Occupational Therapy Occupational Therapy Evaluation Visit Patient Name: Mirta Welsh Today's Date: 03/12/2024 Linked Episodes Type: Episode: Status: Noted: Resolved: Last update: Updated by: Occupational Therapy R MF dislocation Active 03/12/2024 03/12/2024 12:22 PM Alecia Peoples OT Comments: Visit number: 08/07 Subjective Interim History: 73 y/o female presents with chief complaint of limited ROM and pain of the R LF following dx of open dislocation of interphalangeal joint of R hand s/p surgical pinning of PIP joint. Per patient pins were removed Friday03/10/24. The finger became red and hot to touch yesterday and she went to ED. Was placed on cephalexin. Finger feels better following antibiotic . Does have follow up with Dr. Roldan on 04/21/24. Pain: ache and throbbing . Pain up to 10/10 at worst and 4 out of 10 at rest. IS not currently taking anything for pain at present time. Imagin03/10/2024 2:52 PM EDT Status post surgical pinning of third PIP joint. Joint alignment appears anatomic. Small fracture fragment medial to the base of the third middle phalanx. *Osteoarthritis of the triscaphe, first CMC, DIP joints. Prior Level of Function: I with all self-care and functional mobility tasks. Continues to drive. Precautions:none. Objective PRWHE Pain Score: 49/50 PRWHE Functional Score: 91/100 Hand/Wrist Musculoskeletal Exam Inspection Right Erythema: none Ecchymosis: none Edema: severe Deformity: moderate Incision: clean, dry and well-healed Incisional drainage: none Palpation Right Middle tenderness to palpation: middle phalanx and proximal interphalangeal joint Range of Motion Right Hand Middle proximal interphalangeal joint range of motion: -5-105. Middle metacarpal phalangeal joint range of motion: 50. Ring distal interphalangeal range of motion: 25. Range of motion additional comments: Total R LF PEREZ: 30% General General additional comments: Edema Measurements R hand: 8.1 cm 9.0 cm 7.5 cm 7.0 cm 5.5 cm Total: 37.1 cm compared to L MF at 26.9 cm Treatment: Education: HEP education with demonstration, Educated on Eval Findings and POC Manual Therapy: Passive ROM, Joint mobilization, Soft Tissue Mobilization, Myofascial Release, Muscle Energy Technique, Neural Mobilization, Myofascial Cupping, Dry Needling, IASTM, and Scar mobilization Therapeutic Exercise: Strength, Endurance, Flexibility, ROM, and HEP Therapeutic Activity: Exercises to improve dynamic activities, functional tasks, functional mobility to return to prior activity level Neuromuscular re-education: Muscle Facilitation and Dynamic Stability Modalities: Heat, Ice, Electrical Stimulation, Ultrasound, Iontophoresis, and Fluidotherapy Today: Fluido x10 minutes to R hand. Isolated PROM to all digits 1x10. LLPS for PIP extension and towel scrunches complete x2 minutes. Kineseotape applied to finger for edema management. PIP extension splint ordered to maximize ROM. Will discuss this further when splint arrives. Pt verbalizing understanding. Assessment/Plan Pt presents with limited extension of the PIP joint, edema, and weakness limiting function of R hand. POC established, progress per toleration. Short Term Goals: Pt will be independent with home exercise program for light strengthening and ROM at discharge. Alf Goals: PRWHE Pain Score < 10/50 ( IE: 49/50) PRWHE Functional Score < 10/100 ( IE: 91/100 ) Increase R LF PEREZ to at least 80% pain free at discharge. ( IE: 30%) Pt to increase community relations assistant strength by 10# and LP by 2# pain free at discharge per protocol. Pt will be able to use right UE in light daily activities. Pt to reduce edema in R LF by at least 3 cm in order to improve ROM at discharge. ( IE: 37.1cm) Pt will benefit from skilled OT to address the above impairments for 2x/week for 8 weeks. I hereby deem this POC medically necessary. Please sign below. Date: documented in this encounter [facility] 03-10-2024 Note Orthopedic Surgery 02/09/2024 I&d, Pinning Right Long Finger - Right, Repair, Extensor Tendon, Finger - Right, and Repair, Ligament, Ulnar Collateral - Right Mirta Welsh comes in for a post-operative visit [...] motion is appropriate for this time. Assessment: Mirta Welsh is a 73 y.o. year old female with an open PIP dislocation of the R long finger. Plan: Her pin was pulled in clinic today without difficulty. I will have her begin working on range of motion. I like to see her back in 6 weeks to make sure she is getting back to normal. [facility] 03-05-2024 Telephone encounter Note Patient called for PT recommendation. Patient dislocated finger and had to have sx to reattach. The doctor she is seeing is in [place]. She has to do physical therapy and the doctor is in [place]. Patient would like to know if you recommend anyone near the [facility] for PT? Please advise [phone]. [facility] 03-05-2024 Miscellaneous Notes Patient called for PT recommendation. Patient dislocated finger and had to have sx to reattach. The doctor she is seeing is in [place]. She has to do physical therapy and the doctor is in [place]. Patient would like to know if you recommend anyone near the [facility] for PT? Please advise [phone]. documented in this encounter [facility] 02-25-2024 Note Orthopedic Surgery 02/09/2024 I&d, Pinning Right Long Finger - Right, Repair, Extensor Tendon, Finger - Right, and Repair, Ligament, Ulnar Collateral - Right Mirta Welsh comes in for a post-operative visit [...] motion is appropriate for this time. Assessment: Mirta Welsh is a 73 y.o. year old [...] prescription for Keflex just to be safe.. [facility] 02-09-2024 Note Clinician attempted to provide JOSIAH brief intervention regarding alcohol use. Pt denies drinking regularly- states she does not drink weekly or even monthly. Pt reports she had a drink last weekend and could not remember the last time she drank prior to that. Per pt report, she appears to be drinking within recommended health limits. No intervention needed at this time. 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 No Screened by [facility]. Per SS consult order for HHC/wound care, sent referral to [facility] await reply. Per Audit C gave pt chemical dependency referral list, [facility] treatment resources and rethinking drinking resource. Await reply from [facility]. Pt has DC orders. [facility] reported pt is teachable for her wound care. Pt was Dc'd yesterday to home. Received call from [facility] awaiting AVS/DC order. Faxed AVS to [facility] this morning. They will arrange start of care. [facility] 02-09-2024 Note Patient: Mirta aguila Procedure Summary Date: 02/09/24 Room / Location: [facility] OR [address] [place] [address] OR Anesthesia Start: 1328 Anesthesia Stop: 1429 [...] per anesthesia protocol. No notable events documented. [facility] 02-09-2024 Note Pt off floor. Clinic sabi will attempt JOSIAH intervention at another time [facility] 02-09-2024 Note Patient: Mirta aguila Procedure Information Date/Time: 02/09/24 1530 Procedure: I&D HAND/WRIST (Right: Hand) Location: [facility] OR [address] [place] [address] [facility] OR Surgeons: Deniz Roldan MD Relevant Problems [...] Plan discussed with CAA. Additional Equipment Requests [facility] 02-09-2024 Note 02/09/24 0952 Admission Assessment Questions Verify insurance with patient Yes Do you understand medical disease or what brought you into the hospital? Yes Who is your current PCP? No PCP listed. Nicholas Mcgee [facility]OM[facility] updated in [facility] Can I schedule a follow up appointment for you at the time of discharge? Yes Do you understand why you are taking your current medications? Yes Are you taking your medications as prescribed? Yes Did patient provide teach back? Yes Pharmacy Bedside Delivery Status Interested Does the patient have a piano case maker assigned to them through their insurance? No [...] link and activate MyChart? MyChart already active [facility] 02-09-2024 Note Physical Therapy Name: Mirta Welsh Date of : 1950 Today's Date: [...] Check No Charge Time attempted: 852 Katie Hardwick PT [facility] 02-09-2024 Note Attestation signed by Deniz Roldan [...] procedure. Toma Grover MD Orthopedic Surgery, PGY-1 [facility] 02-09-2024 Note Attestation signed by Deniz Roldan [...] found for the past 24 hours ASSESSMENT: Mirta Welsh is a 73 y.o. female with an open dislocation of the right long finger PIP joint s/p bedside washout and reduction. PLAN -After speaking at length with the patient and her regarding conservative and operative options including risks/benefits/alternatives/indic ations, the patient is agreeable to surgical intervention. [...] Daniel MD Orthopaedic Surgery, PGY-2 Ortho Pager [phone] 02/09/24 6:57 AM I am available via [employer] chat 6a-6p. May contact the on-call resident with any concerns via the Orthopaedic pager at any time. [facility] 02-08-2024 Note HPI No chief complaint on file. Initial evaluation completed by Dr. Herzog at 1845. Mirta Welsh is a 73 y.o. y/o female presenting to the ED with c/o open fracture of right middle finger. Pt is a transfer from [place] for an orthopedic consult concerned for an [...] for wound. Physical Exam ED Triage Vitals [02/08/241811] Temp Heart Rate Resp BP 36.6 ???C [...] Course & MDM Diagnoses as of 02/09/24 6999 Dislocation of finger, initial encounter Medical Decision [...] time range) Imaging reviewed by Dr. Le Herzog DO. Radiology reports noted and agreed with [...] Procedure Abnormality Status --------- ------ CBC auto differential[[id number]] Normal Final result Please view results for [...] or pleural effu (more content not included)... [facility] 09-04-2023 History of Present illness Narrative Physical [...] initial HEP. Pain/stiffness throughout spine up to 310 today. 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 ISABELLE Phelps documented in this encounter [facility] 07-02-2023 Evaluation note Encounter Date Diagnosis Assessment [...] sleepiness, or poor response to treatment. . [facility] Other 12-08-2022 Evaluation note* Encounter Date Diagnosis [...] pain of right shoulder (ICD-10 - M25.511) [facility] Other 09-13-2022 NoteHISTORY: Bone density screening. COMPARISON: [...] and signed by Abhi Jefferson on 04/02/2022 1520[facility]08-22-2022 Evaluation note* Encounter Date Diagnosis Assessment [...] S43.003A) Feb, Pre-op exam (ICD-10 - Z01.818) [facility] Other 08-02-2022 Evaluation note* Encounter Date Diagnosis [...] plan further treatment options and potential surgey. [facility] Other 05-06-2022 NoteHISTORY: Dizziness, headaches PROCEDURE: ehealthtracker VCT 64. Without IV contrast, images of [...] and signed by Donald Jeter on 11/23/2021 1544[facility] [id number] History general Narrative - Reported* Type Description Date Medical History type II diabetes Medical History no thyroid Surgical History left wrist 11/2009 Surgical History knee arthroscopy 2006 Surgical History hysterectomy 07/2012 Surgical History thyroidectomy, complete Hospitalization History see above [facility] Other 05-01-2010 History general Narrative - Reported* Type Description Date Medical History type II diabetes Medical History no thyroid Medical History Obstructive sleep apnea Medical History GERD Surgical History left wrist 11/2009 Surgical History knee arthroscopy 2005 Surgical History hysterectomy 07/2012 Surgical History thyroidectomy, complete Hospitalization History see above [facility] Other Evaluation noteNo assessment information available [facility] Work Phone: Evaluation note* Diagnosis Acute left-sided low back pain without sciatica- Primary Sacroiliac joint pain Disorders of sacrum Other idiopathic scoliosis, thoracolumbar region documented in this encounter [facility]* Diagnosis Lumbar paraspinal muscle spasm- Primary Other symptoms referable to back Sacroiliac joint pain Disorders of sacrum Lumbar radiculopathy, chronic Idiopathic scoliosis of thoracolumbar region documented in this encounter [facility]* Diagnosis Sacroiliac joint pain- Primary Disorders of sacrum Lumbar paraspinal muscle spasm Other symptoms referable to back Lumbar radiculopathy, chronic Idiopathic scoliosis of thoracolumbar region documented in this encounter [facility]* Diagnosis Age-related osteoporosis without current pathological fracture (CMS/HCC)- Primary Primary osteoarthritis involving multiple joints Primary hypertension (CMS/HCC) Unspecified essential hypertension Obstructive sleep apnea syndrome Obstructive sleep apnea (adult) (pediatric) documented in this encounter [facility]* Diagnosis Closed dislocation of interphalangeal joint of finger of left hand, subsequent encounter- Primary Open dislocation of phalanx of hand, subsequent encounter documented in this encounter [facility]* Diagnosis Closed dislocation of interphalangeal joint of finger of left hand, subsequent encounter- Primary documented in this encounter [facility]* Diagnosis Closed dislocation of interphalangeal joint of finger of left hand, subsequent encounter- Primary Open dislocation of phalanx of hand, subsequent encounter documented in this encounter [facility]* Diagnosis Closed dislocation of interphalangeal joint of finger of left hand, subsequent encounter- Primary Open dislocation of phalanx of hand, subsequent encounter documented in this encounter [facility]* Diagnosis Closed dislocation of interphalangeal joint of finger of left hand, subsequent encounter- Primary Open dislocation of phalanx of hand, subsequent encounter documented in this encounter [facility]* Diagnosis Closed dislocation of interphalangeal joint of finger of left hand, subsequent encounter- Primary Open dislocation of phalanx of hand, subsequent encounter documented in this encounter [facility]* Diagnosis 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 Type II or unspecified type diabetes mellitus with neurological manifestations, not stated as uncontrolled Neuropathy Mononeuritis of unspecified site Corns and callosities Hammer toes of both feet documented in this encounter [facility]* Diagnosis Open dislocation of phalanx of hand, subsequent encounter- Primary Closed dislocation of interphalangeal joint of finger of left hand, subsequent encounter documented in this encounter [facility]* Diagnosis 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 Type II or unspecified type diabetes mellitus with neurological manifestations, not stated as uncontrolled Neuropathy Mononeuritis of unspecified site Corns and callosities Hammer toes of both feet documented in this encounter [facility]* Diagnosis Closed dislocation of interphalangeal joint of finger of left hand, subsequent encounter- Primary documented in this encounter [facility]* Diagnosis Closed dislocation of interphalangeal joint of finger of left hand, subsequent encounter- Primary documented in this encounter [facility]* Diagnosis Closed dislocation of interphalangeal joint of finger of left hand, subsequent encounter- Primary Open dislocation of phalanx of hand, subsequent encounter documented in this encounter [facility]* Diagnosis Open dislocation of phalanx of hand, subsequent encounter- Primary documented in this encounter [facility]* Diagnosis Closed dislocation of interphalangeal joint of finger of left hand, subsequent encounter- Primary Open dislocation of phalanx of hand, subsequent encounter documented in this encounter [facility] (narrative)* Consultation (Routine) - Authorized Specialty Diagnoses / Procedures Referred By Contac t Referred To Contact Physical Therapy Diagnoses Acute left-sided low back pain without sciatica Sacroiliac joint pain Procedures [place] OFFICE/OUTPATIENT [facility] 60 MINUTES Marquis Ang PA [address] [facility] [address] [place] [address] Meme Breen, PT [address] [place] [address] Referral ID Status Reason Start Date Expiration Date Visits Requested Visits Authorized [id number] Authorized Consult and Treat 08/22/2023 02/18/2024 10 10 * Consultation (Routine) - Pending Review Specialty Diagnoses / Procedures Referred By Contac t Referred To Contact Pain Medicine Diagnoses Acute left-sided low back pain without sciatica Procedures [place] OFFICE/OUTPATIENT [facility] 60 MINUTES Marquis Ang PA [address] [facility] [address] [place] [address] Roxane Rockwell MD [address] [place] [address], [address], [address] [place] [id number] Referral ID Status Reason Start Date Expiration Date Visits Requested Visits Authorized [id number] Pending Review Specialty Services Required 08/22/2023 02/18/2024 1 1 Scheduling Instructions Referral to Dr. Coburn @ [facility]- Possible Lt SI inj; please call pt to schedule [facility] for visit Narrative* Rehabilitation - Outpatient (Routine) - Authorized Specialty Diagnoses / Procedures Referred By Contac t Referred To Contact Occupational Therapy / Physical Therapy Diagnoses Dislocation of unspecified interphalangeal joint of unspecified finger, subsequent encounter Unspecified open wound of unspecified finger without damage to nail, subsequent encounter Procedures AK OCCUPATIONAL THERAPY EVALUATION Deniz Roldan MD [address] [place] [address] Phone: tel: fax: Alecia Peoples, OT [address] [place] [address] Phone: tel:[phone] fax:[phone] Referral ID Status Reason Start Date Expiration Date V isits Requested Visits Authorized [id number] Authorized 05/17/2024 11/13/2024 12 12 [facility] N[facility]* Rehabilitation - Outpatient (Routine) - Authorized Specialty Diagnoses / Procedures Referred By Contac t Referred To Contact Occupational Therapy / Physical Therapy Diagnoses Dislocation of unspecified interphalangeal joint of unspecified finger, subsequent encounter Unspecified open wound of unspecified finger without damage to nail, subsequent encounter Procedures AK OCCUPATIONAL THERAPY EVALUATION Deniz Roldan MD [address] [place] [address] Phone: tel: fax: Alecia Peoples, OT [address] [place] [address] Phone: tel:[phone] fax:[phone] Referral ID Status Reason Start Date Expiration Date V isits Requested Visits Authorized [id number] Authorized 05/17/2024 07/20/2024 12 12 [facility] N[facility]* Rehabilitation - Outpatient (Routine) - Authorized Specialty Diagnoses / Procedures Referred By Contac t Referred To Contact Occupational Therapy / Physical Therapy Diagnoses Dislocation of unspecified interphalangeal joint of unspecified finger, subsequent encounter Unspecified open wound of unspecified finger without damage to nail, subsequent encounter Procedures AK OFFICE/OUTPATIENT [facility] 60 MINUTES AK THERAPEUTIC PX 1/> AREAS EACH 15 MIN EXERCISES AK MANUAL THERAPY TQS 1/> REGIONS EACH 15 MINUTES PHYS/OCC THERAPY SS Deniz Roldan MD [address] [place] [address] Phone: tel: fax: Alecia Peoples, OT [address] [place] [address] Phone: tel:[phone] fax:[phone] Referral ID Status Reason Start Date Expiration Date V isits Requested Visits Authorized [id number] Authorized 07/21/2024 09/30/2024 20 20 [facility] N[facility]* Rehabilitation - Outpatient (Routine) - Authorized Specialty Diagnoses / Procedures Referred By Contac t Referred To Contact Occupational Therapy / Physical Therapy Diagnoses Dislocation of unspecified interphalangeal joint of unspecified finger, subsequent encounter Unspecified open wound of unspecified finger without damage to nail, subsequent encounter Procedures AK OFFICE/OUTPATIENT [facility] 60 MINUTES AK THERAPEUTIC PX 1/> AREAS EACH 15 MIN EXERCISES AK MANUAL THERAPY TQS 1/> REGIONS EACH 15 MINUTES PHYS/OCC THERAPY SS Deniz Roldan MD [address] [place] [address] Phone: tel: fax: Alecia Peoples, OT [address] [place] [address] Phone: tel:[phone] fax:[phone] Referral ID Status Reason Start Date Expiration Date V isits Requested Visits Authorized [id number] Authorized 07/21/2024 07/20/2025 20 30 [facility] Chief Complaint and Reason for Visit Chief Complaint S42.031A [id number] MEDICARE/tear of right supraspinatus Chief Complaint MEDICARE/tear of rig ht supraspinatus Chief Complaint R01.1 Chief Complaint MEDICARE/low back pa in Chief Complaint Admit Date samantha/ annual August 05, 2024 1 1:24am Family History Relationship Condition Age at Onset Recorded Date/T christie father Vaz's esophagus Unknown Not Specified Diabetes mellitus Unknown Relationship Condition Age at Onset Recorded Date/T christie father Vaz's esophagus Unknown mother Diabetes mellitus Unknown brother Type 2 diabetes mellitus Unknown father Malignant neoplasm Unknown Unknown Type 1 diabetes mellitus Unknown Advance Directives Advance Directive Response Recorded Date/ Time Advance Directives No May 12, 2017 5:01pm Advance Directive Response Recorded Date/ Time Advance Directives No May 12, 2017 4:01pm Latest Code Status on File Code Status Date Activated Date Inactivated Comments Full Code 07/02/2023 10:49 AM Latest Code Status on File Code Status Date Activated Date Inactivated Comments Full Code 07/02/2023 10:49 AM Date Activated Date Inactivated Comments 07/02/2023 10:49 AM Date Activated Date Inactivated Comments 07/02/2023 10:49 AM Summary Purpose Additional Source Comments REASON FOR VISIT (unrecogniz ed section and content) Reason Comments Pain Specialty Diagnoses / Procedures Referred By Contac t Referred To Contact Physical Therapy Diagnoses Acute left-sided low back pain without sciatica Sacroiliac joint pain Procedures [place] OFFICE/OUTPATIENT [facility] 60 MINUTES Marquis Ang PA [address] [place] [address] Meme Breen, PT [address] [place] [address] Referral ID Status Reason Start Date Expiration Date Visits Requested Visits Authorized [id number] Authorized Consult and Treat 08/22/2023 02/18/2024 30 30 Reason Comments 4 mos ov rev lab Denies any problems. Having pain in the right middle finger using tylenol and advil with good results. Reason Onset Date Comments OT 05/17/2024 She had called a nd lm noting she is ready to re-do OT on her R finger in [place]. fu 05/17/2024 Called her back to inform a new referral is needed, per Alecia, re: sx. She said she will contact the referring provider and request referral to be faxed over. I told her I would call back lauren to schedule. Reason Onset Date Comments PT 03/05/2024 Specialty Diagnoses / Procedures Referred By Contac t Referred To Contact Occupational Therapy / Physical Therapy Diagnoses Dislocation of unspecified interphalangeal joint of unspecified finger, subsequent encounter Unspecified open wound of unspecified finger without damage to nail, subsequent encounter Procedures AK OCCUPATIONAL THERAPY EVALUATION Deniz Roldan MD [address] [place] [address] Alecia Peoples, OT [address] [place] [address] Referral ID Status Reason Start Date Expiration Date V isits Requested Visits Authorized [id number] Pending Review 03/12/2024 09/08/2024 1 1 Referral ID Status Reason Start Date Expiration Date V isits Requested Visits Authorized [id number] Authorized 03/12/2024 09/08/2024 20 20 Referral ID Status Reason Start Date Expiration Date V isits Requested Visits Authorized [id number] Authorized 03/12/2024 09/08/2024 20 30 Care Teams (unrecognized sec tion and [...] Pierre Kim DO Primary Care Provider Active MATT TejedaC Attending Provider Acti ve Team Status: Inactive Member Role Status Dates Jean Pierre Kim DO Primary Care Provider Active MARILYN WheelerC Attending Provider Active Mattress Filler Relationship Specialty Start Date End Date Jean Pierre Kim DO [address] [place] [address] PCP - ACO Reach 12/12/22 Jean Pierre Kim DO [address] [place] [address] PCP - General Internal Medicine 08/21/23 Meme Gong MD [address] [place] [address] Referring Physician Sleep Medicine 07/02/23 Mattress Filler Relationship Specialty Start Date End Date Jean Pierre Kim DO [address] [place] [address] PCP - ACO Reach 12/12/22 Jean Pierre Kim DO [address] [place] [address] PCP - General Internal Medicine 08/21/23 Meme Gong MD [address] [place] [address] Referring Physician Sleep Medicine 07/02/23 Mattress Filler Relationship Specialty Start Date End Date Jean Pierre Kim DO [address] [place] [address] PCP - ACO Reach 12/12/22 Jean Pierre Kim DO [address] [place] [address] PCP - General Internal Medicine 08/21/23 Meme Gong MD [address] [place] [address] Referring Physician Sleep Medicine 07/02/23 Mattress Filler Relationship Specialty Start Date End Date Jean Pierre Kim DO [address] [place] [address] PCP - ACO Reach 12/12/22 Jean Pierre Kim DO [address] [place] [address] PCP - General Internal Medicine 08/21/23 Meme Gong MD [address] [place] [address] Referring Physician Sleep Medicine 07/02/23 Mattress Filler Relationship Specialty Start Date End Date Jean Pierre Kim DO [address] [place] [address] PCP - ACO Reach 12/12/22 Jean Pierre Kim DO [address] [place] [address] PCP - General Internal Medicine 08/21/23 Meme Gong MD [address] [place] [address] Referring Physician Sleep Medicine 07/02/23 Mattress Filler Relationship Specialty Start Date End Date Jean Pierre Kim DO [address] [place] [address] PCP - ACO Reach 12/12/22 Jean Pierre Kim DO [address] [place] [address] PCP - General Internal Medicine 08/21/23 Meme Gong MD [address] [place] [address] Referring Physician Sleep Medicine 07/02/23 Mattress Filler Relationship Specialty Start Date End Date Jean Pierre Kim DO [address] [place] [address] PCP - ACO Reach 12/12/22 Jean Pierre Kim DO [address] [place] [address] PCP - General Internal Medicine 08/21/23 Meme Gong MD [address] [place] [address] Referring Physician Sleep Medicine 07/02/23 Mattress Filler Relationship Specialty Start Date End Date Jean Pierre Kim DO [address] [place] [address] PCP - ACO Reach 12/12/22 Jean Pierre Kim DO [address] [place] [address] PCP - General Internal Medicine 08/21/23 Meme Gong MD [address] [place] [address] Referring Physician Sleep Medicine 07/02/23 Mattress Filler Relationship Specialty Start Date End Date Jean Pierre Kim DO [address] [place] [address] PCP - ACO Reach 12/12/22 Jean Pierre Kim DO [address] [place] [address] PCP - General Internal Medicine 08/21/23 Meme Gong MD [address] [place] [address] Referring Physician Sleep Medicine 07/02/23 Mattress Filler Relationship Specialty Start Date End Date Jean Pierre Kmi DO [address] [place] [address] PCP - ACO Reach 12/12/22 Jean Pierre Kim DO [address] [place] [address] PCP - General Internal Medicine 08/21/23 Meme Gong MD [address] [place] [address] Referring Physician Sleep Medicine 07/02/23 Mattress Filler Relationship Specialty Start Date End Date Jean Pierre Kim DO [address] [place] [address] PCP - ACO Reach 12/12/22 Jean Pierre Kim DO [address] [place] [address] PCP - General Internal Medicine 08/21/23 Meme Gong MD [address] [place] [address] Referring Physician Sleep Medicine 07/02/23 Mattress Filler Relationship Specialty Start Date End Date Jean Pierre Kim DO [address] [place] [address] PCP - ACO Reach 12/12/22 Jean Pierre Kim DO [address] [place] [address] PCP - General Internal Medicine 08/21/23 Meme Gong MD [address] [place] [address] Referring Physician Sleep Medicine 07/02/23 Mattress Filler Relationship Specialty Start Date End Date Jean Pierre Kim DO [address] [place] [address] PCP - ACO Reach 12/12/22 Jean Pierre Kim DO [address] [place] [address] PCP - General Internal Medicine 08/21/23 Meme Gong MD [address] [place] [address] Referring Physician Sleep Medicine 07/02/23 Mattress Filler Relationship Specialty Start Date End Date Jean Pierre Kim DO [address] [place] [address] PCP - ACO Reach 12/12/22 Jean Pierre Kim DO [address] [place] [address] PCP - General Internal Medicine 08/21/23 Meme Gong MD [address] [place] [address] Referring Physician Sleep Medicine 07/02/23 Mattress Filler Relationship Specialty Start Date End Date Jean Pierre Kim DO [address] [place] [address] PCP - ACO Reach 12/12/22 Jean Pierre Kim DO [address] [place] [address] PCP - General Internal Medicine 08/21/23 Meme Gong MD [address] [place] [address] Referring Physician Sleep Medicine 07/02/23 Mattress Filler Relationship Specialty Start Date End Date Jean Pierre Kim DO [address] [place] [address] PCP - ACO Reach 12/12/22 Jean Pierre Kim DO [address] [place] [address] PCP - General Internal Medicine 08/21/23 Meme Gong MD [address] [place] [address] Referring Physician Sleep Medicine 07/02/23 Mattress Filler Relationship Specialty Start Date End Date Jean Pierre Kim DO [address] [place] [address] PCP - ACO Reach 12/12/22 Jean Pierre Kim DO [address] [place] [address] PCP - General Internal Medicine 08/21/23 Meme Gong MD [address] [place] [address] Referring Physician Sleep Medicine 07/02/23 Mattress Filler Relationship Specialty Start Date End Date Jean Pierre Kim DO [address] [place] [address] PCP - ACO Reach 12/12/22 Jean Pierre Kim DO [address] [place] [address] PCP - General Internal Medicine 08/21/23 Meme Gong MD [address] [place] [address] Referring Physician Sleep Medicine 07/02/23 Mattress Filler Relationship Specialty Start Date End Date Jean Pierre Kim DO [address] [facility] [address] [place] [address] PCP - ACO Reach 12/12/22 Jean Pierre Kim DO [address] [facility] [address] [place] [address] PCP - General Internal Medicine 08/21/23 Meme Gong MD [address] [place] [address] Referring Physician Sleep Medicine 07/02/23 Team Status: Inactive Member Role Status Dates Jean Pierre Kim DO Primary Care Provider Active Start: August 05, 2024 End: August 05, 2024 Roz Sun NP-C Attending Provider Active Sta rt: August 05, 2024 End: August 05, 2024 Mattress Filler Relationship Specialty Start Date End Date Jean Pierre Kim DO [address] [facility] [address] [place] [address] PCP - ACO Reach 12/12/22 Jean Pierre Kim DO [address] [facility] [address] [place] [address] PCP - General Internal Medicine 08/21/23 Meme Gong MD [address] [place] [address] Referring Physician Sleep Medicine 07/02/23 Goals (unrecognized section and content) Goals may be documented in a n alternate section INFORMATION SOURCE (unrecogn ized section and content) DATE CREATED AUTHOR 04/03/2022 [facility] DATE CREATED AUTHOR AUTHOR'S ORGANIZ ATION 06/22/2022 [facility] DATE CREATED AUTHOR AUTHOR'S ORGANIZ ATION 03/26/2023 [facility] DATE CREATED AUTHOR AUTHOR'S ORGANIZ ATION 07/26/2023 [facility] DATE CREATED AUTHOR AUTHOR'S ORGANIZ ATION 08/09/2024 [facility] DATE CREATED AUTHOR AUTHOR'S ORGANIZ ATION 08/11/2024 [facility] FOR RECORDS PERTAINING TO PATIENTS WHO ARE [...] BE BASED ON THE PRIMARY CLINICAL RECORDS. [id number] provides no warranty or guarantee of the accuracy or completeness of information in this document.
[2024-08-18 08:23] LABS: Basophils Percent Auto 0.3 % (0.2-2.0); Eosinophils Absolute Auto 0.7 10^3/uL (0.0-0.7); Eosinophils Percent Auto 7.6 % (0.9-7.0); Hematocrit 41.9 % (36.0-48.0); Hemoglobin 13.4 g/dL (12.0-16.0); Immature Granulocytes Abs Auto 0.03 10^3/uL (0.00-0.03); Immature Granulocytes Pct Auto 0.3 % (0.0-0.5); Lymphocytes Absolute Auto 2.8 10^3/uL (1.2-3.8); Lymphocytes Percent Auto 32.6 % (20.5-60.0); Mean Corpuscular Hemoglobin 30.9 pg (26.7-34.0); Mean Corpuscular Volume 96.5 fL (81.0-99.0); Mean Platelet Volume 8.8 fL (9.5-13.5); Monocytes Absolute Auto 0.7 10^3/uL (0.3-0.8); Monocytes Percent Auto 8.3 % (1.7-12.0); Neutrophils Absolute Auto 4.4 10^3/uL (1.4-6.5); Neutrophils Percent Auto 50.9 % (43.0-75.0); Platelet Count 284 10^3/uL (150-450); Red Blood Count 4.34 10^6/uL (4.20-5.40); Red Cell Distribution Width 12.8 % (11.0-15.0); White Blood Count 8.6 10^3/uL (4.0-11.0)
[2024-08-18 08:47] LABS: Estimated Average Glucose 111 mg/dL; Glycohemoglobin A1C 5.5 % (4.5-6.2)
[2024-08-18 08:56] LABS: Free T4 1.19 ng/dL (0.76-1.46)
[2024-08-18 08:57] LABS: Alanine Aminotransferase 24 U/L (14-59); Albumin Globulin Ratio 1.2; Albumin Level 3.5 g/dL (3.4-5.0); Alkaline Phosphatase 72 U/L (46-116); Anion Gap 11.9; Aspartate Amino Transferase 18 U/L (15-37); BUN Creatinine Ratio 12.1; Bilirubin Total 0.4 mg/dL (0.2-1.0); Calcium 8.5 mg/dL (8.5-10.1); Carbon Dioxide 29.6 mmol/L (21.0-32.0); Chloride 105 mmol/L (98-107); Estimated GFR (African America >60 (>=60 mL/min/1.73m^2); Estimated GFR (Non-African Ame >60 (>=60 mL/min/1.73m^2); Free T3 2.68 pg/mL (2.18-3.98); Glucose 103 mg/dL (74-106); Potassium 4.5 mmol/L (3.5-5.1); Sodium 142 mmol/L (136-145); Thyroid Stimulating Hormone 0.355 uIU/mL (0.358-3.740); Total Protein 6.5 g/dL (6.4-8.2)
[2024-08-18 09:47] LABS: Bilirubin Urine NEGATIVE (NEGATIVE); Blood Urine TRACE-I (NEGATIVE); Clarity Urine CLEAR (CLEAR); Color Urine LT. YELLOW (YELLOW); Glucose Urine UA NEGATIVE (NEGATIVE); Ketones Urine NEGATIVE (NEGATIVE); Leukocyte Esterase Urine SMALL (NEGATIVE); Nitrite Urine NEGATIVE (NEGATIVE); Protein Urine NEGATIVE (NEG/TRACE); Urobilinogen Urine 0.2 EU/dL (0.2-1.0)
[2024-08-18 09:49] LABS: Urine Microscopic Indicated YES
[2024-08-18 10:01] LABS: Bacteria Urine TRACE #/HPF (NONE SEEN); Cast Seen? NONE SEEN #/LPF (NONE SEEN); Crystals Seen? None Seen #/HPF (None Seen); Mucus Urine NONE SEEN (NONE SEEN); RBC Urine 0-2 #/HPF (0-2); Squamous Epithelial Cell Urine RARE #/LPF (NONE/RARE)
== END 2024-08-18 08:01 | disposition home or self-care (01) ==
PROVIDERS: PCP Internal Medicine; Visit Provider Internal Medicine
DX: R53.83 Other fatigue (principal); I10 Essential (primary) hypertension; E11.69 Type 2 diabetes mellitus with other specified complication
CPT/HCPCS: 36415; 80053; 81001; 83036; 84439; 84443; 84481; 85025

== ENCOUNTER 2024-12-20 08:32 | Outpatient (OUT) | payer MEDICARE, SELFPAY ==
--- OUTSIDE RECORDS SUMMARY | 2013-02-03 20:00 | XMS_ITS | Continuity of Care Document ---
Author Organization [facility] Address [address] [place] [address] Phone Care Team Providers Care Survey Operations Director Name Role Phone AAA Provider MD, Test Unavailable Unavailabl e Advance Directives Directive Yes / No Effective Date File Name No Information Encounters Encounter Description Practice Location Reason(s) For Visit Diagnoses Date Provider Providers Copied on Encounter [facility], [address], [place], [place], [id number], [place] tel:[phone] Clinical Services Department No Information AAA Provider Test. [address] [place], [address], [place]. tel:[phone] Family History Family Member Type Diagnosis Age At Onset No Information Payers Payer name Insurance type Covered green party ID Authoriza tion(s) No Information Social History Type Description Quantity Date Captured Comments Sex Female Smoking Status No Information Chief Complaint And Reason For Visit No Information Reason For Referral Reason For Referral No Information History Of Present Illness Encounter Date Complaint History Of Prese nt Illness No Information Functional Status Date Functional Assessmen t No Information Instructions Date Instruction Additional Infor mation No Information Assessments Type Assessment Date No Information Patient Care Teams Name Effective Dates (start - stop) Status Members No Information
--- OUTSIDE RECORDS SUMMARY | 2024-12-07 14:00 | XMS_ITS | Encounter Summary ---
Author Organization [facility] Address [address] [place] [address] Care Team Providers Care Outside Sales Engineer Name Role Phone Jean Pierre Clay DO Unavailable [phone] Zac Gong MD Unavailable [phone] Jean Pierre Clay DO Primary Care Provider Reason for Visit * Reason Comments Wound Infection Encounter Details Date Type Department Care Team (Late st Contact Info) Description 12/07/2024 2:00 PM EDT Office Visit [facility] [address] [place] [phone] Rekha Cornejo NP [address] [place] [address] Pressure injury of buttock, stage 2, unspecified laterality (CMS/HCC) (Primary Dx); Acute non-recurrent pansinusitis; Side effect of medication Social History Tobacco Use Types Packs/Day Years Used Date Smoking Tobacco: Former Cigarettes 1 26 0 07/21/1969 - 07/21/1995 Passive Smoke Exposure: Past Smokeless Tobacco: Never Comments:Past smoking hx unk nown Alcohol Use Standard Drinks/Week Comments Not Currently 2 (1 standard drink = 0.6 oz pur e alcohol) Very rarely AUDIT-C Answer Date Recorded Q1: How often do you have a drink containing alc ohol? Monthly or less 07/02/2023 Q2: How many drinks containi ng alcohol do you have on a typical day when you are drinking? 1 or 2 07/02/2023 Q3: How often do you have si x or more drinks on one occasion? Never 07/02/2023 PHQ-2 Answer Date Recorded Patient Health Questionnaire-2 Score 2 08/24/2024 Comments No Sex and Gender Information Value Date Recorded Sex Assigned at Female 12/04/2022 9:39 AM EDT Legal Sex Female 7:28 PM EDT Gender Identity Female 12/04/2022 9:39 AM EDT Sexual Orientation Not on file documented as of this encounter Last Filed Vital Signs Vital Sign Reading Time Taken Comments Blood Pressure 100/60 12/07/2024 3:06 PM EDT Pulse 66 12/07/2024 3:06 PM EDT Temperature - - Respiratory Rate 16 12/07/2024 3:06 PM EDT Oxygen Saturation 97% 12/07/2024 3:06 PM EDT Inhaled Oxygen Concentration - - Weight - - Height - - Body Mass Index - - documented in this encounter Progress Notes * Rekha Cornejo, SENIOR C DEVELOPER - 12/07/2024 2:00 PM EDT Images from the original note were not included. Subjective Patient ID: Mirta Welsh (: 1950) is a 73 y.o. female who presents for Wound Infection. HPI Patient presents today for an open area at her [facility] area that has been seeping. She states she noticed this a week or so ago. She has been sitting more often than her normal due to her being ill. She denies fevers or chills. Has been keeping area clean and as dry as possible. Current Outpatient Medications Medication Instructions amoxicillin-clavulanate (Augmentin) 875-125 MG tablet 875 mg, Oral, 2 times daily atorvastatin (LIPITOR) 40 mg, Oral, Every morning betamethasone dipropionate (Diprolene) 0.05 % ointment Apply to affected areas, up to twice a day when flared, do not use one the face, groin, or underarms, 30 day supply busPIRone (BUSPAR) 5 mg, Oral, 4 times daily Calcium Carbonate (CALCIUM 500 PO) 500 mg, Oral, Every 12 hours cholecalciferol (VITAMIN D-3) 2,000 Units, Oral, Daily cyclobenzaprine (FLEXERIL) 5 mg, Oral, 2 times daily dicyclomine (BENTYL) 10 mg, Oral, 4 times daily PRN fluconazole (DIFLUCAN) 150 mg, Oral, See admin instructions, Take one tab now. Repeat in 72 hours if symptoms persist. fluocinonide (Lidex) 0.05 % external solution Apply to affected areas on the scalp qd, 30 day supply fluocinonide (Lidex) 0.05 % external solution Apply to affected areas on the scalp, up to once a day when flared, 30 day supply glucose blood (ReliOn Prime Test) test strip USE 1 STRIP TO CHECK GLUCOSE ONCE DAILY hydrocortisone (Anusol-HC) 2.5 % rectal cream Rectal, 4 times daily PRN ibuprofen 800 mg, Oral, Every 8 hours levothyroxine (SYNTHROID, LEVOXYL) 100 mcg, Oral, Daily before breakfast liothyronine (CYTOMEL) 5 mcg, Oral, Daily lisinopril 10 mg, Oral, Daily metFORMIN (GLUCOPHAGE) 500 mg, Oral, 2 times daily with meals pantoprazole (PROTONIX) 40 mg, Oral, Daily before breakfast, Do not crush, chew, or split. semaglutide (Ozempic, 1 MG/DOSE,) 4 MG/3ML solution pen-injector as directed Subcutaneous once weekly for 30 days traZODone (DESYREL) 50 mg, Oral, Nightly venlafaxine XR (EFFEXOR XR) 75 mg, Oral, Daily venlafaxine XR (EFFEXOR XR) 150 mg, Oral, Daily Allergies Allergen Reactions Wellbutrin [Bupropion] Increased depression Patient Active Problem List Diagnosis Age related osteoporosis (CMS/HCC) Benign neoplasm of colon Diverticulosis GERD (gastroesophageal reflux disease) History of thyroidectomy Mild intermittent reactive airway disease (CMS/HCC) Obstructive sleep apnea syndrome OA (osteoarthritis) Postherpetic neuralgia (CMS/HCC) Primary hypertension (CMS/HCC) Scoliosis Irritable bowel syndrome with constipation Type 2 diabetes mellitus with other specified complication Postoperative hypothyroidism (CMS/HCC) Review of Systems Constitutional: Negative for chills and fever. HENT: Positive for congestion, postnasal drip and sinus pressure. Skin: Positive for wound. Objective Vital signs: BP 100/60 (Patient Position: Sitting) Pulse 66 Resp 16 SpO2 97% Physical Exam Constitutional: Appearance: Normal appearance. HENT: Head: Normocephalic. Nose: Congestion present. Mouth/Throat: Pharynx: Posterior oropharyngeal erythema present. Eyes: Pupils: Pupils are equal, round, and reactive to light. Cardiovascular: Rate and Rhythm: Normal rate and regular rhythm. Pulmonary: Effort: Pulmonary effort is normal. Breath sounds: Normal breath sounds. Skin: General: Skin is warm and dry. Comments: See attached photo of pressure ulcer and surround skin breakdown in the tailbone/buttock area. No tunneling noted. Neurological: Mental Status: She is alert and oriented to person, place, and time. Psychiatric: Mood and Affect: Mood normal. Assessment/Plan Problem List Items Addressed This Visit None Visit Diagnoses Pressure injury of buttock, stage 2, unspecified laterality (CMS/HCC) - Primary Discussed exam findings with patient. Patient has been sitting more than her normal due to her being ill. She has not had pressures ulcers in the past. She noticed this a little over a week ago. She has been managing this at home with cleaning the area and keeping it as dry as possible. I verified the area has no tunneling. I will start her on Augmentin which will also help with her sinussymptoms. I did also give her 2x2's to place in that area to keep the area as dry as possible. She has barrier cream at home that she was instructed to apply three times a day. I will see her in the office in one week. If things are not better I will send to wound care. Relevant Medications amoxicillin-clavulanate (Augmentin) 875-125 MG tablet Acute non-recurrent pansinusitis Start the above as directed. Reviewed potential s/e with patient. Encouraged probiotic while on antibiotic. Increase water intake, get plenty of rest. Can take OTC allergy medication for symptomatic relief. Tylenol/Motrin prn. Follow up if no improvement in one week. Relevant Medications amoxicillin-clavulanate (Augmentin) 875-125 MG tablet Side effect of medication Relevant Medications fluconazole (Diflucan) 150 MG tablet Health Maintenance Topic Date Due Pneumococcal Vaccine: 65+ Years (3 of 3 - PCV20 or PCV21) 01/19/2023 Diabetes: Retinopathy Screening 07/29/2024 Diabetes: Hemoglobin A1C 11/16/2024 Diabetes: Urine Protein Screening 04/20/2025 Medicare Annual Wellness (AWV) 08/24/2025 Mammogram 10/25/2025 Colorectal Cancer Screening 12/11/2031 Influenza Vaccine Completed Immunization History Administered Date(s) Administered Influenza, High Dose Seasonal, Preservative Free 04/08/2024 Influenza, High-dose Seasonal, Quadrivalent, Preservative Free 04/08/2021, 05/03/2022 Influenza, Seasonal, Quadrivalent, Adjuvanted 04/11/2023 Influenza, trivalent, adjuvanted 04/27/2020 Pfizer Purple Cap SARS-CoV-2 Vaccination 09/29/2020, 10/19/2020, 06/13/2021 Pneumococcal Conjugate PCV 13 01/19/2018 Pneumococcal Polysaccharide PPSV23 12/27/2014 SARS-COV-2 (COVID-19) vaccine, mRNA, spike protein, LNP, PF, jefferson-sucrose, 30 mcg/0.3 mL 04/11/2023 SARS-COV-2 (COVID-19) vaccine, mRNA, spike protein, LNP, bivalent, preservative free, 30 mcg/0.3 mLdose, jefferson-sucrose formulation 05/03/2022 Tdap 11/07/2016, 11/03/2023 Zoster, Recombinant 03/12/2023, 05/16/2023 -Patient's chronic conditions have been reviewed in preparation for this appointment. Protocols reviewed and updated. A collaborative plan of care has been created for pt regarding specific health concerns. Any barriers to care have been identified and addressed. Any part of this document that has been added/copied from other documents has been reviewed for accuracy and updated as appropriate at the time of the patient encounter. -Follow up for Next scheduled follow-up. Rekha Cornejo NP Ozempic patient assistance pens given at time of appt. documented in this encounter Plan of Treatment Upcoming Encounters Date Type Department Care Team (Late st Contact Info) Description 12/23/2024 10:30 AM EDT Office Visit [facility] [address] [place] [phone] Jean Pierre Clay DO [address] [place] [address] 01/13/2025 10:35 AM EDT Office Visit [facility] [address] [place] [phone] Sailaja Green MD [address] [place] [address] 12/15/2025 9:05 AM EDT Office Visit [facility] [address] [place] [phone] Sailaja Green MD [address] [place] [address] documented as of this encounter Visit Diagnoses Diagnosis Pressure injury of buttock, stage 2, unspecified laterality (CMS/HCC)- Primary Acute non-recurrent pansinusitis Side effect of medication documented in this encounter Additional Health Concerns Assessment Noted Time PHQ-9 Depression Total Score: 5 08/24/19 25 10:00 AM EST documented as of this encounter Care Teams Outside Sales Engineer Relationship Specialty Start Date End Date Jean Pierre Clay DO [address] [place] [address] PCP - ACO Reach 12/12/22 Jean Pierre Clay DO [address] [place] [address] PCP - General Internal Medicine 08/21/23 Zac Gong MD [address] [place] [address] Referring Physician Sleep Medicine 07/02/23 documented as of this encounter
--- OUTSIDE RECORDS SUMMARY | 2024-12-14 10:00 | XMS_ITS | Encounter Summary ---
Author Organization [facility] Address [address] [place] [address] Care Team Providers Care Laboratory Tech Name Role Phone Jean Pierre Clay DO Unavailable [phone] Zac Gong MD Unavailable [phone] Jean Pierre Clay DO Primary Care Provider [phone] Reason for Visit * Reason Comments Wound Check Encounter Details Date Type Department Care Team (Late st Contact Info) Description 12/14/2024 10:00 AM EDT Office Visit [facility] [address] [place] [phone] Rekha Cornejo NP [address] [place] [address] Pressure injury of buttock, stage 2, unspecified laterality (CMS/HCC) (Primary Dx) Social History Tobacco Use Types Packs/Day Years [...] on file documented as of this encounter Progress Notes * Rekha Cornejo, ORTHOPEDIC PHYSICIAN - 12/14/2024 10:00 AM EDT Subjective Patient ID: Mirta Welsh (: 1950) is a 74 y.o. female who presents for Wound Check. Wound Check Patient presents today for pressure ulcer follow up. Patient does have coming in to assess and care for wound at this time. Current Outpatient Medications Medication Instructions amoxicillin-clavulanate (Augmentin) [...] 10 mg, Oral, 4 times daily PRN fluocinonide (Lidex) 0.05 % external solution Apply [...] complication Postoperative hypothyroidism (CMS/HCC) Review of Systems Skin: Positive for wound. Objective Vital signs: There were no vitals taken for this visit. Physical Exam Constitutional: Appearance: Normal appearance. Skin: General: Skin is warm and dry. Comments: Well healing pressure ulcer. Pinpoint openings at the top of the buttocks area near tailbone and two pin point areas lower into the top of the buttock area. No signs of infection. Neurological: Mental Status: She is alert. Assessment/Plan Problem List Items Addressed This Visit None Visit Diagnoses Pressure injury of buttock, stage 2, unspecified laterality (CMS/HCC) - Primary Pressure ulcer area is healing well. I advised she continue with HH at least once a week for 4 weeks. The HH nurse may follow standard pressure ulcer care instructions. I will have patient continue with Keflex until completed. She was advised to change positions and stand often. Patient to follow up with any questions or concerns. Health Maintenance Topic Date Due Pneumococcal Vaccine: [...] for Next scheduled follow-up. Rekha Cornejo NP documented in this encounter Plan of Treatment Upcoming Encounters Date Type Department Care Team (Late st Contact Info) Description 12/23/2024 10:30 AM EDT Office Visit [facility] [address] [place] [address] Jean Pierre Clay DO [address] [place] [address] 01/13/2025 10:35 AM EDT Office Visit [facility] [address] [place] [address] Sailaja Green MD [address] [place] [address] 12/15/2025 9:05 AM EDT Office Visit [facility] [address] [place] [address] Sailaja Green MD [address] [place] [address] documented as of this encounter Visit Diagnoses Diagnosis Pressure injury of buttock, stage 2, unspecified laterality (CMS/HCC)- Primary documented in this encounter Additional Health Concerns Assessment Noted Time PHQ-9 Depression Total Score: 5 08/24/19 25 10:00 AM EST documented as of this encounter Care Teams Laboratory Tech Relationship Specialty Start Date End Date Jean Pierre Clay DO [address] [place] [address] PCP - ACO Reach 12/12/22 Jean Pierre Clay DO [address] [place] [address] PCP - General Internal Medicine 08/21/23 Zac Gong MD [address] [place] [address] Referring Physician Sleep Medicine 07/02/23 documented as of this encounter
--- OUTSIDE RECORDS SUMMARY | 2024-12-16 10:30 | XMS_ITS | Encounter Summary ---
Author Organization [facility] Address [address] [place] [address] Care Team Providers Care Face Hardener Name Role Phone Jean Pierre Clay DO Unavailable [phone] Zac Gong MD Unavailable [phone] Jean Pierre Clay DO Primary Care Provider [phone] Reason for Visit * Reason Comments Skin Check Encounter Details Date Type Department Care Team (Late st Contact Info) Description 12/16/2024 10:30 AM EDT Office Visit [facility] [address] [facility] [address] [place] [address] Sailaja Green MD [address] [facility] [address] [place] [address] Melanocytic nevus of trunk (Primary Dx); History of SCC (squamous cell carcinoma) of skin; Lichen planopilaris; Seborrheic keratosis; Lentigines; Actinic keratosis; Rash and other nonspecific skin eruption Social History Tobacco Use Types Packs/Day Years [...] as of this encounter Progress Notes * Sailaja Green MD - 12/16/2024 10:30 AM EDT Images from the original note were not included. Skin Check Location: Patient requests a full body skin examination Dermatologic history: history of Actinic Keratosis, history of Squamous Cell Carcinoma Last visit: 1 year ago Established patient Rash Location: left knee Duration: weeks Severity: mild Quality: itchy Modifying Factors: improved with scratching Associated symptoms: red, patchy, bumps Treatments tried: OTC Hydrocortisone Current treatments: DMSO and Frankincense Follow up Diagnosis: Lichen planopilaris Location: scalp Last visit: 1 year ago Symptoms: itchy Status: continues to improve Current treatment: Fluocinonide 0.05% solution big prn for itching All pertinent medical history, medications, and allergies were reviewed. General Exam: alert, oriented to person, place, and time, normal affect, well appearing Unaccompanied Scalp, Examined , exam limited by hair Right leg Examined Head, Face Examined Left leg Examined Neck Examined Right foot Examined Chest Examined Left foot Examined Back Examined Buttocks Examined Patient kept underwear on Abdomen Examined Digits,nails: Examined Right arm Examined Denies dark streaks on toenails Left arm Examined Lymphatics: Not examined Hands Examined Skin Exam 1. MELANOCYTIC NEVUS OF TRUNK Torso - Posterior (Back) Scattered benign appearing, regular brown to light brown melanocytic papules and macules with similar morphology Counseled regarding these benign growths. Rarely, a nevus can develop into malignant melanoma, so any changing nevi should be promptly re-evaluated. 2. HISTORY OF SCC (SQUAMOUS CELL CARCINOMA) OF SKIN Right Lower Leg - Anterior No evidence of recurrence at SCC scar. The patient was counseled that scars from excisional sites of nonmelanoma skin cancers should be monitored closely for recurrence. The patient was instructed to contact the office for any new, changing, or symptomatic moles. The patient was also instructed to contact the office for any new lesions that develop within or around the previous surgery scar. 3. LICHEN PLANOPILARIS Scalp No erythema seen on exam today, hair loss stable, improvement since last visit Continue lidex solution apply topically every day as needed for flaring, hold if clear. Notify office if flaring despite treatment. Patient states refills not needed currently, will call in if needed. Related Medications fluocinonide (Lidex) 0.05 % external solution Apply to affected areas on the scalp, up to once a day when flared, 30 day supply 4. SEBORRHEIC KERATOSIS (6) Abdomen (Lower Torso, Anterior), Chest (Upper Torso, Anterior), Left Ankle - Posterior, Left Leg, Right Arm, Right Leg Stuck on verrucous, avila-brown papules and plaques. Patient was counseled regarding these benign growths. Removal is normally not necessary, but they may be removed if they are symptomatic or for cosmetic reasons. 5. LENTIGINES (5) Chest (Upper Torso, Anterior), Head - Anterior (Face), Left Shoulder - Posterior, Right Shoulder - Posterior, Torso - Posterior (Back) Scattered avila macules in sun-exposed areas. The patient was informed that lentigines are benign pigmented lesions that occur on sun-exposed andsun-damaged skin. No treatment is necessary. Recommended regular use of broad spectrum sunscreen SPF 30 or higher 6. ACTINIC KERATOSIS Right Wrist - Posterior Erythematous scaly papules Patient was counseled regarding these sun-induced growths that can develop into squamous cell carcinoma if left untreated. Discussed treatment with cryotherapy. It was emphasized that any treated lesions that fail to resolve should be re- evaluated. Cryotherapy performed today; see procedure note Diagnosis: Actinic keratosis Indication: Precancerous Location: see skin exam Consent: Verbal consent was obtained and risks were discussed, including, but not limited to risks of scarring, darker or program services planner pigmentary changes, recurrence, incomplete removal and infection. Method: Liquid nitrogen was used to treat the lesion(s) with two 5-10 second freeze-thaw cycles. Number of lesions treated: 1 Post-procedure instructions: Instructions were given orally and in writing. The office will be contacted if the lesion fails to resolve despite treatment, or if a side effect develops such as abnormal crusting, scabbing, redness or tenderness Cryotherapy, skin lesion - Right Wrist - Posterior 7. RASH AND OTHER NONSPECIFIC SKIN ERUPTION Left Knee - Anterior Faint pink patches with scattered excoriations Will have patient apply fluocinonide solution to the area as she's already prescribed this and has it on hand. Avoid using essential oils as this could be why skin is reacting in the area. If rash isnot gone in 4-6 weeks patient to notify office for re-evaluation. Patient can call for prescriptionof triamcinolone 0.1% cream to be sent in for her to try if the liquid gill or is to cumbersome toapply. Next Visit: 1 year documented in this encounter Plan of Treatment Upcoming Encounters Date Type Department Care Team (Late st Contact Info) Description 12/23/2024 10:30 AM EDT Office Visit [facility] [address] [place] [address] Jean Pierre Clay DO [address] [place] [address] 01/13/2025 10:35 AM EDT Office Visit [facility] [address] [place] [address] Sailaja Green MD [address] [place] [address] 12/15/2025 9:05 AM EDT Office Visit [facility] [address] [place] [address] Sailaja Green MD [address] [place] [address] documented as of this encounter Procedures Procedure Name Priority Date/Time Associated Diagnosis Comments CRYOTHERAPY SKIN LESION Routine 12/17/19 10:42 AM EDT Actinic keratosis documented in this encounter Results * Cryotherapy, skin lesion (12/16/2024 10:42 AM EDT) Result [facility] Sailaja Green MD DERM PROCEDURE ORDERABLES Fin al Result documented in this encounter Visit Diagnoses Diagnosis Melanocytic nevus of trunk- Primary Benign neoplasm of skin of trunk, except scrotum History of SCC (squamous cell carcinoma) of skin Personal history of other malignant neoplasm of skin Lichen planopilaris Lichen planus Seborrheic keratosis Lentigines Actinic keratosis Rash and other nonspecific skin eruption documented in this encounter Additional Health Concerns Assessment Noted Time PHQ-9 Depression Total Score: 5 08/24/19 10:00 AM EST documented as of this encounter Care Teams Face Hardener Relationship Specialty Start Date End Date Jean Pierre Clay DO [address] [address] PCP - ACO Reach 12/12/22 Jean Pierre Clay DO [address] [address] PCP - General Internal Medicine 08/21/23 Zac Gong MD [address] [place] [address] Referring Physician Sleep Medicine 07/02/23 documented as of this encounter
--- OUTSIDE RECORDS SUMMARY | 2024-12-20 08:34 | XMS_ITS | Encounter Summary ---
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 [address] [place] [address] Social History Tobacco Use Types Packs/Day Years Used Date Smoking Tobacco: Former Cigarettes 0 07/21/1969 - 07/21/1995 Smokeless Tobacco: Never Comments:Past smoking hx unk nown Alcohol Use Standard Drinks/Week Comments Yes 0 (1 standard drink = 0.6 oz pure alcohol) caffeine: 2-3 cups per day coffee, tea Comments Unknown Sex and Gender Information Value Date Recorded Sex Assigned at Female 12/04/2022 9:39 AM EDT Legal Sex Female 7:28 PM EDT Gender Identity Female 12/04/2022 9:39 AM EDT Sexual Orientation Not on file COVID-19 Exposure Response Date Recorded In the last 10 days, have elle u been in contact with someone who was confirmed or suspected to have Coronavirus/COVID-19? No / Unsure 01/02/2023 8:46 AM EDT documented as of this encounter Plan of Treatment Upcoming Encounters Date Type Department Care Team (Late st Contact Info) Description 12/23/2024 10:30 AM EDT Office Visit [facility] [address] [place] [address] Jean Pierre Clay DO [address] [place] [address] 01/13/2025 10:35 AM EDT Office Visit [facility] [address] [place] [address] Sailaja Green MD [address] [place] [address] 12/15/2025 9:05 AM EDT Office Visit [facility] [address] [place] [address] Sailaja Green MD [address] [place] [address] documented as of this encounter Procedures Procedure Name Priority Date/Time Associated Diagnosis Comments CONGENITAL TRANSTHORACIC ECHO (TTE) COMPLETE 01/03/2023 3:57 PM EDT documented in this encounter Results * Congenital transthoracic echo (TTE) complete (01/03/2023 3:57 PM EDT) Anatomical Region Laterality Modality Heart Ultrasound 01/03/2023 3:57 PM EDT Narrative 01/06/2023 9:10 AM EDT [facility] Main [address] [address] Echocardiogram Signed Patient: Mirta Welsh MR#: [id number] : 1950 Acct:[id number] Age/Sex: 72 / F ADM Date: 01/03/23 Loc: Room: Type: [facility] Attending Dr: Ning ORTIZ Ordering Provider: [...] cm Transcribed By: BRUNO Performed At: 01/03/23 1997 Signed By: Adrianne Ramos MD 01/03/23 1638 Procedure Note Adrianne Ramos MD - 01/06/2023 [facility] [place] [address] Echocardiogram Signed Patient: Mirta Welsh AMR#: [id number] : 3Acct:[id number] Age/Sex: 72 / FADM Date: 01/03/23 Loc: Room:Type: [facility] Attending Dr: Ning ORTIZ Ordering Provider: [...] is associated with grade I/IV or mild diastolicdysfunction. Ejection Fraction = 60-65%. Septal motion is consistent with conduction abnormality. The left atrium appears mildly dilated. There is trace tricuspid regurgitation. Mild plaque seen in the distal aortic arch The aortic valve is mildly calcified. There is no comparison study available. Procedure/Quality: A two-dimensional transthoracic echocardiogram withcolor flow and Doppler was performed. The study was technically good in quality. Left Ventricle: The left ventricular size is normal. Mild to moderate concentric left ventricular hypertrophy. Ejection Fraction = 60-65%. Avariety of Doppler measurements indicate impaired left ventricular relaxation,which is associated with grade I/IV or mild diastolic dysfunction. Septal motionis consistent with conduction abnormality. Left Atrium: The left atrium appears mildly dilated. Right Atrium: The right atrium appears normal in size. Right Ventricle: The right ventricular size, thickness and function are normal. Aortic Valve: The aortic valve is mildly calcified. No aorticregurgitation is present. Mitral Valve: The mitral valve is normal in structure and function.There is no mitral regurgitation noted. Tricuspid Valve: The tricuspid valve is normal in structure andfunction. There is trace tricuspid regurgitation. Pulmonic Valve: The pulmonic valve is normal in structure and function. Arteries: The aortic root is normal size. Mild plaque seen in the distal aortic arch. Pericardium/Pleura: No pericardial effusion seen. There is no pleural effusion. IVC/Hepatic Viens: The inferior vena cava is normal in size, with anormal collapsibility index. Measurements with Normals IVSd: 1.7 cm (0.7-1.1 cm)LVIDd: 3.2 cm (3.7-5.4 cm) LVPWd: 1.4 cm (0.7-1.1 cm)LVIDs: 2.3 cm (2.3-3.6 cm) LA dimension: 4.1 cm (2.3-4.0 cm)Ao root diam: 2.9 cm(2.0-3.6 cm) asc Aorta Diam: 3.5 cm(2.1-3.4cm) Doppler with Normals RVSP(TR): 25.2 mmHg (18-35mmHg) LV V1 max: 184.5 cm/sec (0.7-1.7m/s)MV E max jose luis: 65.1cm/sec(0.8-1.3m/s) MV A max jose luis: 113.2 cm/sec(0.0-0.0m/s) MV E/A: 0.57 (<1.5) MMode/2D Measurements Calculations TAPSE: 2.2 cm FS: 30.5 % Ao root area: LVOT diam: 2.1 cm RV S Jose Luis: EDV(Teich): 6.5 cm2 LVOT area: 3.5 cm2 15.9 cm/sec 42.4 ml ESV(Teich): 17.2 ml EF(Teich): 59.3 % __ LVLd ap4: 8.7 cm SV(MOD-sp4): LAV(MOD-sp4): LA A2 area: 17.4cm2 EDV(MOD-sp4): 41.5 ml 38.7 ml 76.2 ml LAV(MOD-sp2): LA A4 area: 16.8cm2 LVLs ap4: 7.3 cm 45.6 ml LA [...] V2 mean: 129.2 cm/sec Ao V2 VTI: 28.0cm SHERI(I,D): 3.2cm2 SHERI(V,D): 3.9cm2 __ LV V1 max PG: TV max PG: TR max jose luis: 13.6 mmHg 22.0 mmHg 235.6 cm/sec LV V1 mean PG: TR max P.2 mmHg 8.3 mmHg RAP systole: 3.0 mmHg LV V1 mean: 139.1 cm/sec LV V1 VTI: 26.1 cm Transcribed By: SCV Performed At: 01/03/23 1557 Signed By: Adrianne Ramos MD 01/03/23 1638 us [employer]ing [employer]IVE[employer] CV ECHO PROCEDURES Final Res ult documented in this encounter Visit Diagnoses Not on filedocumented in this encounter Care Teams Pocket Setter Relationship Specialty Start Date End Date Jean Pierre Clay DO [address] [place] [address] PCP - ACO Reach 12/12/22 Jean Pierre Clay DO [address] [place] [address] PCP - General Internal Medicine 01/13/23 08/20/23 Jean Pierre Clay DO [address] [place] [address] PCP - General Internal Medicine 08/21/23 Zac Gong MD [address] [place] [address] Referring Physician Sleep Medicine 07/02/23 documented as of this encounter
--- OUTSIDE RECORDS SUMMARY | 2024-12-20 08:34 | XMS_ITS ---
Author Organization [facility] Address [address] [place] [address] Care Team Providers Care Florist Manager Name Role Phone Jean Pierre Clay DO Unavailable [phone] Zac Gong MD Unavailable [phone] Jean Pierre Clay DO Primary Care Provider [phone] Chronic Care Management (CCM) Status:Enrolled (Active) Start date:12/05/2022 Enrollment date:12/05/2022 Overview 09/16/23, 10:11 AM - Priscilla Villagran LPN- Patient gives verbal consent to be enrolled in CCM Program and understands there could be a bill for this service. Case Team Name Relationship Phone Naomi Pedro MA(Responsible Staff) Clinical Ad vocate [phone] Continued Care and Services Coordination
--- OUTSIDE RECORDS SUMMARY | 2024-12-20 08:34 | XMS_ITS | Encounter Summary ---
Author Organization [facility] Address [address] [facility] [place] [address] Care Team Providers Care Workers Compensation Analyst Name Role Phone Jean Pierre Clay DO Unavailable [phone] Zac Gong MD Unavailable [phone] Jean Pierre Clay DO Primary Care Provider Encounter Details Date Type Department Care Team (Late st Contact Info) Description 11/04/2023 Orders Only [facility] [address] [facility] [address] [place] [address] Angeles Meng MD [address] [place] [address] Social History Tobacco Use Types Packs/Day Years Used Date Smoking Tobacco: Former Cigarettes 1 26 0 07/21/1969 - 07/21/1995 Passive Smoke Exposure: Past Smokeless Tobacco: Never Comments:Past smoking hx unk nown Alcohol Use Standard Drinks/Week Comments Not Currently 0 (1 standard drink = 0.6 oz pure alcohol) caffeine: 2-3 cups per day coffee, tea AUDIT-C Answer Date Recorded Q1: How often [...] Date Recorded Patient Health Questionnaire-2 Score 2 07/02/2023 Comments No Sex and Gender Information Value Date Recorded Sex Assigned at Female 12/04/2022 9:39 AM EDT Legal Sex Female 7:28 PM EDT Gender Identity Female 12/04/2022 9:39 AM EDT Sexual Orientation Not on file documented as of this encounter Plan of Treatment Upcoming Encounters Date Type Department Care Team (Late st Contact Info) Description 12/23/2024 10:30 AM EDT Office Visit [facility] [address] [place] [address] Jean Pierre Clay DO [address] [place] [address] 01/13/2025 10:35 AM EDT Office Visit [facility] [address] [place] [address] Sailaja Green MD [address] [place], [place] [address] 12/15/2025 9:05 AM EDT Office Visit [facility] [address] [place] [address] Sailaja Green MD [address] [place] [address] documented as of this encounter Procedures Procedure Name Priority Date/Time Associated Diagnosis Comments XR HAND 3+ VIEWS RIGHT Routine 11/04/2023 8:04 AM EDT documented in this encounter Results * XR HAND 3+ VIEWS RIGHT (11/04/2023 8:04 AM EDT) Anatomical Region Laterality Modality Radiographic Felicitas ging Angeles Meng MD IMG XR PROCEDURES Final Result documented in this encounter Visit Diagnoses Not on filedocumented in this encounter Additional Health Concerns Assessment Noted Time PHQ-9 Depression Total Score: 5 07/02/20 9:00 AM EST documented as of this encounter Care Teams Workers Compensation Analyst Relationship Specialty Start Date End Date Jean Pierre Clay DO [address] [place] [address] PCP - ACO Reach 12/12/22 Jean Pierre Clay DO [address] [place] [address] PCP - General Internal Medicine 08/21/23 Zac Gong MD [address] [place] [address] Referring Physician Sleep Medicine 07/02/23 documented as of this encounter
--- OUTSIDE RECORDS SUMMARY | 2024-12-20 08:34 | XMS_ITS | Encounter Summary ---
Author Organization [facility] Address [address] [facility] [place] [address] Care Team Providers Care Honing Machine Set Up Operator Tool Name Role Phone Jean Pierre Clay DO Unavailable [phone] Zac Gong MD Unavailable Jean Pierre Clay DO Primary Care Provider Encounter Details Date Type Department Care Team (Late st Contact Info) Description 10/31/2023 Orders Only [facility] [address] [facility] [address] [place] [address] A, Unknown Practice [address] [place], [place] [phone] Social History Tobacco Use Types Packs/Day Years [...] 12/23/2024 10:30 AM EDT Office Visit [facility] [address] [place] [address] Jean Pierre Clay DO [address] [place] [address] 01/13/2025 10:35 AM EDT Office Visit [facility] [address] [place] [address] Sailaja Green MD [address] [place] [address] 12/15/2025 9:05 AM EDT Office Visit [facility] [address] [place] [address] Sailaja Green MD [address] [place] [address] documented as of this encounter Procedures Procedure Name Priority Date/Time Associated Diagnosis Comments SCANNED LABS Routine 10/31/2023 1:27 PM EDT documented in this encounter Results * SCANNED LABS (10/31/2023 1:27 PM EDT) us Unknown Practice A LAB CHG PERFORMABLES Final Re sult documented in this encounter Visit Diagnoses Not on filedocumented in this encounter Additional Health Concerns Assessment Noted Time PHQ-9 Depression Total Score: 5 07/02/20 23 9:00 AM EST documented as of this encounter Care Teams Honing Machine Set Up Operator Tool Relationship Specialty Start Date End Date Jean Pierre Clay DO [address] [place] [address] PCP - ACO Reach 12/12/22 Jean Pierre Clay DO [address] [place] [address] PCP - General Internal Medicine 08/21/23 Zac Gong MD [address] [place] [address] Referring Physician Sleep Medicine 07/02/23 documented as of this encounter
--- OUTSIDE RECORDS SUMMARY | 2024-12-20 08:34 | XMS_ITS | Encounter Summary ---
Author Organization [facility] Address [address] [facility] [place] [address] Care Team Providers Care Salt Plant Operator Name Role Phone Jean Pierre Clay DO Unavailable [phone] Zac Gong MD Unavailable [phone] Jean Pierre Clay DO Primary Care Provider Encounter Details Date Type Department Care Team (Late st Contact Info) Description 12/25/2023 Orders Only [facility] [address] [facility] [address] [place] [address] A, Unknown Practice [address] [place], [place] [phone] Social History Tobacco Use Types Packs/Day Years [...] [address] [place] [address] Jean Pierre Clay DO [address] [place] [address] 01/13/2025 10:35 AM EDT Office Visit [facility] [address] [place] [address] Sailaja Green MD [address] [place] [address] 12/15/2025 9:05 AM EDT Office Visit [facility] [address] [place] [address] Sailaja Green MD [address] [place] [address] documented as of this encounter Procedures Procedure Name Priority Date/Time Associated Diagnosis Comments DIABETES EYE EXAM Routine 07/29/2023 10:20 AM EST documented in this encounter Results * Diabetes Eye Exam (07/29/2023 10:20 AM EST) us Unknown Practice A HEALTH MAINTENANCE Final Resu lt documented in this encounter Visit Diagnoses Not on filedocumented in this encounter Additional Health Concerns Assessment Noted Time PHQ-9 Depression Total Score: 5 07/02/20 9:00 AM EST documented as of this encounter Care Teams Salt Plant Operator Relationship Specialty Start Date End Date Jean Pierre Clay DO [address] [place] [address] PCP - ACO Reach 12/12/22 Jean Pierre Clay DO [address] [place] [address] PCP - General Internal Medicine 08/21/23 Zac Gong MD [address] [facility] [address] [place] [address] Referring Physician Sleep Medicine 07/02/23 documented as of this encounter
--- OUTSIDE RECORDS SUMMARY | 2024-12-20 08:34 | XMS_ITS | Encounter Summary ---
Author Organization [facility] Address [address] [facility] [place] [address] Care Team Providers Care Shop Foreman Name Role Phone Jean Pierre Clay DO Unavailable [phone] Jean Pierre Clay DO Primary Care Provider Zac Gong MD Unavailable [phone] Jean Pierre Clay DO Primary Care Provider [phone] Encounter Details Date Type Department Care Team (Late st Contact Info) Description 01/06/2023 Orders Only [facility] [address] [facility] [address] [place] [phone] Provider, MD Vianey [address] [place] [address] Social History Tobacco Use Types Packs/Day Years [...] Recorded In the last 10 days, have yo u been in contact with someone who was confirmed or suspected to have Coronavirus/COVID-19? No / Unsure 01/09/2023 1:20 PM EDT documented as of this encounter Plan of Treatment Upcoming Encounters Date Type Department Care Team (Late st Contact Info) Description 12/23/2024 10:30 AM EDT Office Visit [facility] [address] [place] [address] Jean Pierre Clay DO [address] [place] [address] 01/13/2025 10:35 AM EDT Office Visit [facility] [address] [place] [address] Sailaja Green MD [address] [place] [address] 12/15/2025 9:05 AM EDT Office Visit [facility] [address] [place] [address] Sailaja Green MD [address] [place] [address] documented as of this encounter Procedures Procedure Name Priority Date/Time Associated Diagnosis Comments TRANSTHORACIC ECHO (TTE) COMPLETE Routine 01/03/2023 11:44 AM EDT documented in this encounter Results * Transthoracic echo (TTE) complete (01/03/2023 11:44 AM EDT) Anatomical Region Laterality Modality Heart Ultrasound us Historical Provider MD THOMAS ECHO PROCEDURES Edited Result - Final documented in this encounter Visit Diagnoses Not on filedocumented in this encounter Care Teams Shop Foreman Relationship Specialty Start Date End Date Jean Pierre Clay DO [address] [place] [address] PCP - ACO Reach 12/12/22 Jean Pierre Clay DO [address] [place] [address] PCP - General Internal Medicine 01/13/23 08/20/23 Jean Pierre Clay DO [address] [place] [address] PCP - General Internal Medicine 08/21/23 Zac Gong MD [address] [place] [address] Referring Physician Sleep Medicine 07/02/23 documented as of this encounter
--- OUTSIDE RECORDS SUMMARY | 2024-12-20 08:35 | XMS_ITS | Encounter Summary ---
Author Organization [facility] Address [address] [place] [address] Care Team Providers Care Icicle Machine Operator Name Role Phone Jean Pierre Clay DO Unavailable [phone] Zac Gong MD Unavailable [phone] Jean Pierre Clay DO Primary Care Provider [phone] Encounter Details Date Type Department Care Team (Latest Contact Info) Description 12/16/2024 Travel Social History Tobacco Use Types Packs/Day Years [...] [address] [place] [address] Jean Pierre Clay DO [address] [place] [address] 01/13/2025 10:35 AM EDT Office Visit [facility] [address] [place] [address] Sailaja Green MD [address] [place] [address] 12/15/2025 9:05 AM EDT Office Visit [facility] [address] [place] [address] Sailaja Green MD [address] [place] [address] documented as of this encounter Visit Diagnoses Not on filedocumented in this encounter Additional Health Concerns Assessment Noted Time PHQ-9 Depression Total Score: 5 08/24/19 25 10:00 AM EST documented as of this encounter Care Teams Icicle Machine Operator Relationship Specialty Start Date End Date Jean Pierre Clay DO [address] [place] [address] PCP - ACO Reach 12/12/22 Jean Pierre Clay DO [address] [place] [address] PCP - General Internal Medicine 08/21/23 Zac Gong MD [address] [place] [address] Referring Physician Sleep Medicine 07/02/23 documented as of this encounter
--- OUTSIDE RECORDS SUMMARY | 2024-12-20 08:35 | XMS_ITS | Encounter Summary ---
Author Organization [facility] Address [address] [place] [facility] [place] [address] Care Team Providers Care Container Washer Name Role Phone Jean Pierre Clay DO Unavailable [phone] Jean Pierre Clay DO Primary Care Provider Zac Gong MD Unavailable [phone] Jean Pierre Clay DO Primary Care Provider [phone] Encounter Details Date Type Department Care Team (Late st Contact Info) Description 12/23/2022 Orders Only [facility] [address] [facility] [address] [place] [phone] Provider, MD Vianey [address] [place] [address] Social History Tobacco Use Types Packs/Day [...] suspected to have Coronavirus/COVID-19? No / Unsure 12/26/2022 8:09 AM EDT documented as of this encounter Plan of Treatment Upcoming Encounters Date Type Department Care Team (Late st Contact Info) Description 12/23/2024 10:30 AM EDT Office Visit [facility] [address] [place] [address] Jean Pierre Clay DO [address] [place] [address] 01/13/2025 10:35 AM EDT Office Visit [facility] [address] [place] [address] Sailaja Green MD [address] [place] [address] 12/15/2025 9:05 AM EDT Office Visit [facility] [address] [place] [address] Sailaja Green MD [address] [place] [address] documented as of this encounter Procedures Procedure Name Priority Date/Time Associated Diagnosis Comments CBC (INCLUDES DIFF/PLT) Routine 12/21/2022 11:09 AM EDT documented in this encounter Results * CBC and differential (12/21/2022 11:09 AM EDT) Blood Venous blood specimen / Unknown us Historical Provider LAB BLOOD ORDERABLES Edit ed Result - Final documented in this encounter Visit Diagnoses Not on filedocumented in this encounter Care Teams Container Washer Relationship Specialty Start Date End Date Jean Pierre Clay DO [address] [place] [address] PCP - ACO Reach 12/12/22 Jean Pierre Clay DO [address] [place] [address] PCP - General Internal Medicine 01/13/23 08/20/23 Jean Pierre Clay DO [address] [place] [address] PCP - General Internal Medicine 08/21/23 Zac Gong MD [address] [place] [address] Referring Physician Sleep Medicine 07/02/23 documented as of this encounter
--- OUTSIDE RECORDS SUMMARY | 2024-12-20 08:35 | XMS_ITS | Encounter Summary ---
Author Organization [facility] Address [address] [facility] [place] [address] Care Team Providers Care Housecleaner Floor Name Role Phone Jean Pierre Clay DO Unavailable [phone] Zac Gong MD Unavailable [phone] Jean Pierre Clay DO Primary Care Provider Reason for Visit * Reason Onset Date Comments referral 12/07/2024 Encounter Details Date Type Department Care Team (Late st Contact Info) Description 12/07/2024 Telephone [facility] [address] [facility] [address] [place] [address] Zhane Miramontes LPN referral Social History Tobacco Use Types Packs/Day Years [...] on file documented as of this encounter Miscellaneous Notes * Telephone Encounter - Rekha Cornejo NP - 12/07/2024 3:43 PM EDT Yes if that is something Medicare will pay for I would love to make that referral for her pressure ulcer! * Telephone Encounter - Zhane Miramontes LPN - 12/07/2024 3:41 PM EDT Pt called requesting a referral for home wound care, she was told by her sister that since she has medicare she will be able to get it with no problem. documented in this encounter Plan of Treatment Upcoming Encounters Date Type Department Care Team (Late st Contact Info) Description 12/23/2024 10:30 AM EDT Office Visit [facility] [address] [place] [address] Jean Pierre Clay DO [address] [place] [address] 01/13/2025 10:35 AM EDT Office Visit [facility] [address] [place] [address] Sailaja Green MD [address] [place] [address] 12/15/2025 9:05 AM EDT Office Visit [facility] [address] [place] [address] Sailaja Green MD [address] [place] [address] documented as of this encounter Visit Diagnoses Not on filedocumented in this encounter Additional Health Concerns Assessment Noted Time PHQ-9 Depression Total Score: 5 08/24/19 25 10:00 AM EST documented as of this encounter Care Teams Housecleaner Floor Relationship Specialty Start Date End Date Jean Pierre Clay DO [address] [place] [address] PCP - ACO Reach 12/12/22 Jean Pierre Clay DO [address] [place] [address] PCP - General Internal Medicine 08/21/23 Zac Gong MD [address] [place] [address] Referring Physician Sleep Medicine 07/02/23 documented as of this encounter
--- OUTSIDE RECORDS SUMMARY | 2024-12-20 08:35 | XMS_ITS | Encounter Summary ---
Author Organization [facility] Address [address] [place] [address] Care Team Providers Care Weigh Box Tender Name Role Phone Jean Pierre Clay DO Unavailable [phone] Zac Gong MD Unavailable [phone] Jean Pierre Clay DO Primary Care Provider [phone] Encounter Details Date Type Department Care Team (Latest Contact Info) Description 12/09/2024 Travel Social History Tobacco Use Types Packs/Day [...] [address] [place] [phone] Jean Pierre Clay DO [address] [place] [address] 01/13/2025 10:35 AM EDT Office Visit [facility] [address] [place] [address] Sailaja Green MD [address] [place] [address] 12/15/2025 9:05 AM EDT Office Visit [facility] [address] [place] [phone] Sailaja Green MD [address] [place] [address] documented as of this encounter Visit Diagnoses Not on filedocumented in this encounter Additional Health Concerns Assessment Noted Time PHQ-9 Depression Total Score: 5 08/24/19 25 10:00 AM EST documented as of this encounter Care Teams Weigh Box Tender Relationship Specialty Start Date End Date Jean Pierre Clay DO [address] [place] [address] PCP - ACO Reach 12/12/22 Jean Pierre Clay DO [address] [place] [address] PCP - General Internal Medicine 08/21/23 Zac Gong MD [address] [place] [address] Referring Physician Sleep Medicine 07/02/23 documented as of this encounter
--- OUTSIDE RECORDS SUMMARY | 2024-12-20 08:35 | XMS_ITS | Encounter Summary ---
Author Organization [facility] Address [address] [facility] [place] [address] Care Team Providers Care Inventory Control Manager Name Role Phone Jean Pierre Clay DO Unavailable [phone] Jean Pierre Clay DO Primary Care Provider [phone] Zac Gong MD Unavailable [phone] Jean Pierre Clay DO Primary Care Provider [phone] Encounter Details Date Type Department Care Team (Late st Contact Info) Description 06/26/2023 Orders Only [facility] [address] [facility] [address] [place] [phone] A, Unknown Practice [address] [place], [place] [phone] Social History Tobacco Use Types Packs/Day Years [...] drink containing alc ohol? Monthly or less 02/07/2023 Q2: How many drinks containi ng alcohol do you have on a typical day when you are drinking? 1 or 2 02/07/2023 Q3: How often do you have si x or more drinks on one occasion? Never 02/07/2023 PHQ-2 Answer Date Recorded Patient Health Questionnaire-2 Score 6 03/20/2023 Comments Unknown Sex and Gender Information Value [...] suspected to have Coronavirus/COVID-19? No / Unsure 06/26/2023 10:02 AM EST documented as of this encounter Plan of Treatment Upcoming Encounters Date Type Department Care Team (Late st Contact Info) Description 12/23/2024 10:30 AM EDT Office Visit [facility] [address] [place] [phone] Jean Pierre Clay DO [address] [place] [address] 01/13/2025 10:35 AM EDT Office Visit [facility] [address] [place] [address] Sailaja Green MD [address] [place] [address] 12/15/2025 9:05 AM EDT Office Visit [facility] [address] [place] [address] Sailaja Green MD [address] [place] [address] documented as of this encounter Procedures Procedure Name Priority Date/Time Associated Diagnosis Comments SCANNED LABS Routine 06/26/2023 2:36 PM EST SCANNED LABS Routine 06/26/2023 2:10 PM EST SCANNED LABS Routine 06/26/2023 1:52 PM EST SCANNED LABS Routine 06/26/2023 1:42 PM EST documented in this encounter Results * SCANNED LABS (06/26/2023 2:36 PM EST) us Unknown Practice A LAB CHG PERFORMABLES Final Re sult * SCANNED LABS (06/26/2023 2:10 PM EST) us Unknown Practice A LAB CHG PERFORMABLES Final Re sult * SCANNED LABS (06/26/2023 1:52 PM EST) us Unknown Practice A LAB CHG PERFORMABLES Final Re sult * SCANNED LABS (06/26/2023 1:42 PM EST) us Unknown Practice A LAB CHG PERFORMABLES Final Re sult documented in this encounter Visit Diagnoses Not on filedocumented in this encounter Additional Health Concerns Assessment Noted Time PHQ-9 Depression Total Score: 24 023 10:00 AM EDT documented as of this encounter Care Teams Inventory Control Manager Relationship Specialty Start Date End Date Jean Pierre Clay DO [address] [facility] [address] [place] [address] PCP - ACO Reach 12/12/22 Jean Pierre Clay DO [address] [place] [address] PCP - General Internal Medicine 01/13/23 08/20/23 Jean Pierre Clay DO [address] [place] [address] PCP - General Internal Medicine 08/21/23 Zac Gong MD [address] [place] [address] Referring Physician Sleep Medicine 07/02/23 documented as of this encounter
--- OUTSIDE RECORDS SUMMARY | 2024-12-20 08:35 | XMS_ITS | Encounter Summary ---
Author Organization [facility] Address [address] [place] [address] Care Team Providers Care Trestle Mechanic Name Role Phone Jean Pierre Clay DO Unavailable [phone] Zac Gong MD Unavailable [phone] Jean Pierre Clay DO Primary Care Provider [phone] Encounter Details Date Type Department Care Team (Latest Contact Info) Description 12/07/2024 Travel Social History Tobacco Use Types Packs/Day [...] [address] [place] [phone] Jean Pierre Clay DO [address] [place] [address] 01/13/2025 10:35 AM EDT Office Visit [facility] [address] [place] [address] Sailaja Green MD [address] [place] [address] 12/15/2025 9:05 AM EDT Office Visit [facility] [address] [place] [phone] Sailaja Green MD [address] [place] [address] documented as of this encounter Visit Diagnoses Not on filedocumented in this encounter Additional Health Concerns Assessment Noted Time PHQ-9 Depression Total Score: 5 08/24/19 25 10:00 AM EST documented as of this encounter Care Teams Trestle Mechanic Relationship Specialty Start Date End Date Jean Pierre Clay DO [address] [place] [address] PCP - ACO Reach 12/12/22 Jean Pierre Clay DO [address] [place] [address] PCP - General Internal Medicine 08/21/23 Zac Gong MD [address] [place] [address] Referring Physician Sleep Medicine 07/02/23 documented as of this encounter
--- OUTSIDE RECORDS SUMMARY | 2024-12-20 08:35 | XMS_ITS | Encounter Summary ---
Author Organization [facility] Address [address] [place] [address] Care Team Providers Care Photograph Tinter Name Role Phone Jean Pierre Clay DO Unavailable [phone] Jean Pierre Clay DO Primary Care Provider [phone] Zac Gong MD Unavailable [phone] Jean Pierre Clay DO Primary Care Provider [phone] Reason for Visit * Reason Comments Med Refill Encounter Details Date Type Department Care Team (Late st Contact Info) Description 12/30/2022 Refill [facility] [address] [facility] [address] [place] [phone] Jean Pierre Clay DO [address] [facility] [address] [place] [address] Muscle spasm Social History Tobacco Use Types Packs/Day Years [...] AM EDT documented as of this encounter Miscellaneous Notes * Telephone Encounter - Ning Valladares NP - 01/07/2023 12:39 PM EDT Please let patient know I reviewed her echo results with Dr. Clay. There isn't anything significant on there. We would like to have her schedule an stress test with lexiscan to further evaluate herSOB. Please also reschedule her visit in a few days with the nurse practioners to a visit with Dr. Clay. Thanks * Telephone Encounter - Matt Stovall LPN - 01/02/2023 10:08 AM EDT Patient informed * Telephone Encounter - Ning Valladares NP - 01/02/2023 9:40 AM EDT Please let patient know that her chest xray came back without any acute findings. * Telephone Encounter - Matt Stovall LPN - 01/01/2023 11:55 AM EDT The xr-tech said she is assuming that it's just explaining her anatomy that her trachea is on the right side, she said she doesn't believe it's anything clinical. * Telephone Encounter - Ning Valladares NP - 01/01/2023 11:11 AM EDT Can we please call over to imaging and ask what is meant by right sided trachae on her chest x-ray report? Thanks * Telephone Encounter - Zhane Miramontes LPN - 12/30/2022 4:56 PM EDT Approving, but needs appt for additional refills. documented in this encounter Plan of Treatment Upcoming Encounters Date Type Department Care Team (Late st Contact Info) Description 12/23/2024 10:30 AM EDT Office Visit [facility] [address] [place] [address] Jean Pierre Clay DO [address] [place] [address] 01/13/2025 10:35 AM EDT Office Visit [facility] [address] [place] [address] Sailaja Green MD [address] [place] [address] 12/15/2025 9:05 AM EDT Office Visit [facility] [address] [place] [address] Sailaja Green MD [address] [place] [address] documented as of this encounter Visit Diagnoses Diagnosis Muscle spasm Spasm of muscle documented in this encounter Care Teams Photograph Tinter Relationship Specialty Start Date End Date Jean Pierre Clay DO [address] [place] [address] PCP - ACO Reach 12/12/22 Jean Pierre Clay DO [address] [place] [address] PCP - General Internal Medicine 01/13/23 08/20/23 Jean Pierre Clay DO [address] [place] [address] PCP - General Internal Medicine 08/21/23 Zac Gong MD [address] [place] [address] Referring Physician Sleep Medicine 07/02/23 documented as of this encounter
--- OUTSIDE RECORDS SUMMARY | 2024-12-20 08:35 | XMS_ITS | Encounter Summary ---
Author Organization [facility] Address [address] [place] [address] Care Team Providers Care Occupational Therapy Asst Name Role Phone Jean Pierre Clay DO Unavailable [phone] Zac Gong MD Unavailable [phone] Jean Pierre Clay DO Primary Care Provider [phone] Encounter Details Date Type Department Care Team (Latest Contact Info) Description 12/14/2024 Travel Social History Tobacco Use Types Packs/Day [...] [address] [place] [phone] Jean Pierre Clay DO [address] [place] [address] 01/13/2025 10:35 AM EDT Office Visit [facility] [address] [place] [address] Sailaja Green MD [address] [place] [address] 12/15/2025 9:05 AM EDT Office Visit [facility] [address] [place] [phone] Sailaja Green MD [address] [place] [address] documented as of this encounter Visit Diagnoses Not on filedocumented in this encounter Additional Health Concerns Assessment Noted Time PHQ-9 Depression Total Score: 5 08/24/19 25 10:00 AM EST documented as of this encounter Care Teams Occupational Therapy Asst Relationship Specialty Start Date End Date Jean Pierre Clay DO [address] [place] [address] PCP - ACO Reach 12/12/22 Jean Pierre Clay DO [address] [place] [address] PCP - General Internal Medicine 08/21/23 Zac Gong MD [address] [place] [address] Referring Physician Sleep Medicine 07/02/23 documented as of this encounter
--- OUTSIDE RECORDS SUMMARY | 2024-12-20 08:35 | XMS_ITS | Clinical Summary ---
Author Organization [facility] Healthcare Address [address] [place] [address] Care Team Providers Care Stereoptician Name Role Phone Jean Pierre Clay DO Unavailable [phone] Zac Gong MD Unavailable [phone] Jean Pierre Clay DO Primary Care Provider Allergies No known active allergies Medications semaglutide (Ozempic, 1 MG/DOSE,) 4 MG/3ML solution pen-injector 022 Active fluocinonide (Lidex) 0.05 % external solutionIndicati ons:Lichen plano-pilaris Apply to affected areas on the scalp qd, 30 day supply 60 mL 11 023 Active betamethasone dipropionate (Diprolene) 0.05 % ointmentIndicati ons:Other atopic dermatitis Apply to affected areas, up to twice a day when flared, do not use one the face, groin, or underarms, 30 day supply 45 g 11 023 Active hydrocortisone (Anusol-HC) 2.5 % rectal creamIndications :Hemorrhoids, unspecified hemorrhoid type Insert into the rectum 4 (four) times a day as needed for hemorrhoids 28 g 3 023 Active fluocinonide (Lidex) 0.05 % external solutionIndicati ons:Lichen planopilaris Apply to affected areas on the scalp, up to once a day when flared, 30 day supply 20 mL 11 024 Active glucose blood (ReliOn Prime Test) test stripIndications :Diabetes mellitus without complication USE 1 STRIP TO CHECK GLUCOSE ONCE DAILY 100 each 3 024 Active ibuprofen 800 MG tabletIndication s:Arthritis of lumbar spine Take 1 tablet (800 mg) by mouth every 8 (eight) hours 270 tablet 3 024 Active dicyclomine (Bentyl) 10 MG capsuleIndicatio ns:Irritable bowel syndrome with constipation Take 1 capsule (10 mg) by mouth 4 (four) times a day as needed (abdominal pain or cramps) 120 capsule 2 024 Active cyclobenzaprine (Flexeril) 5 MG tabletIndication s:Muscle spasm Take 1 tablet (5 mg) by mouth in the morning and 1 tablet (5 mg) before bedtime. 180 tablet 3 024 Active atorvastatin (Lipitor) 40 MG tabletIndication s:LDL (low density lipoprotein receptor disorder) (CMS/HCC) TAKE 1 TABLET EVERY MORNING 90 tablet 3 024 Active busPIRone (Buspar) 5 MG tabletIndication s:Anxiety Take 1 tablet (5 mg) by mouth in the morning and 1 tablet (5 mg) at noon and 1 tablet (5 mg) in the evening and 1 tablet (5 mg) before bedtime. 360 tablet 3 025 Active lisinopril 10 MG tabletIndication s:Primary hypertension (CMS/HCC) Take 1 tablet (10 mg) by mouth Daily 90 tablet 3 025 Active liothyronine (Cytomel) 5 MCG tabletIndication s:Postoperative hypothyroidism (CMS/HCC) Take 1 tablet (5 mcg) by mouth Daily 90 tablet 3 025 Active pantoprazole (ProtoNix) 40 MG EC tabletIndication s:Gastroesophage al reflux disease, unspecified whether esophagitis present Take 1 tablet (40 mg) by mouth in the morning. Take before meals. Do not crush, chew, or split.. 90 tablet 3 025 Active Calcium Carbonate (CALCIUM 500 PO) Take 500 mg by mouth every 12 (twelve) hours Active cholecalciferol (Vitamin D-3) 50 MCG (2000 UT) tablet Take 2,000 Units by mouth Daily Active metFORMIN (Glucophage) 500 MG tabletIndication s:Type 2 diabetes mellitus with diabetic neuropathic arthropathy, without long-term current use of insulin (CMS/HCC) Take 1 tablet (500 mg) by mouth in the morning and 1 tablet (500 mg) in the evening. Take with meals. 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 Take before meals. 90 tablet 3 025 Active acetaminophen (GoodSense Pain Relief) 325 MG tablet Take by mouth 024 Active doxycycline (Vibra-Tabs) 100 MG tablet Take 100 mg by mouth in the morning and 100 mg before bedtime. 025 Active HYDROcodone-acet aminophen ([place]) 5-325 MG tablet TAKE 1 TO 2 TABLET(S) BY MOUTH EVERY 4 TO 6 HOURS NEEDED FOR PAIN 025 Active oxyCODONE (Roxicodone) 5 MG immediate release tablet Take by mouth 024 Active valACYclovir (Valtrex) 1 g tablet Daily as needed 025 Active triamcinolone (Kenalog) 0.1 % creamIndications :Rash and other nonspecific skin eruption Apply 0.5 grams to knees BID prn for itching/90 days. Do not use on the face, neck, armpits or groin. 80 g 3 025 Active metFORMIN (Glucophage) 500 MG tabletIndication s:Type 2 diabetes mellitus with diabetic neuropathic arthropathy, without long-term current use of insulin (CMS/HCC) Take 1 tablet (500 mg) by mouth in the morning. Take with meals. 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 Take with 75 mg capsule to = 225 mg 90 capsule 3 025 2024 Discontinued amoxicillin-clav ulanate (Augmentin) 875-125 MG tabletIndication s:Pressure injury of buttock, stage 2, unspecified laterality (CMS/HCC),Acute non-recurrent pansinusitis Take 1 tablet (875 mg) by mouth in the morning and 1 tablet (875 mg) before bedtime. Do all this for 10 days. 20 tablet 025 2024 Discontinued(T herapy completed) fluconazole (Diflucan) 150 MG tabletIndication s:Side effect of medication Take 1 tablet (150 mg) by mouth See administration instructions for 1 day Take one tab now. Repeat in 72 hours if symptoms persist. 2 tablet 025 2024 Active Problems Problem Noted Date Diagnosed Date Postoperative hypothyroidism 08/24/2024 Type 2 diabetes mellitus with other specified co mplication 01/13/2023 Diverticulosis 12/26/2022 Primary hypertension 12/26/2022 Irritable bowel syndrome with constipation 12/26 Overview (12/26/2022): Using benefiberstan benefiber everyday Benign neoplasm of colon 09/04/2020 History of thyroidectomy 09/04/2020 Mild intermittent reactive airway disease 2020 OA (osteoarthritis) 02/02/2020 Age related osteoporosis 09/09/2019 GERD (gastroesophageal reflux disease) 0 Obstructive sleep apnea syndrome 11/19/2017 Postherpetic neuralgia 06/22/2015 Scoliosis 06/22/2015 Resolved Problems Problem Noted Date Diagnosed Date Resolved Date Closed dislocation of interp halangeal joint of finger of left hand, subsequent encounter 03/12/2024 08/24/2024 Open dislocation of phalanx of hand, subsequent encounter 03/12/2024 08/24/2024 ACP (advance care planning) 07/02/2023 04/20/2024 Medicare annual wellness visit, subsequent 07/02/2023 04/20/2024 Encounter for screening mamm ogram for malignant neoplasm of breast 07/02/2023 08/24/2024 Anxiety 04/22/2023 04/23/2024 Current severe episode of ma alhaji depressive disorder without psychotic features without prior episode 03/20/2023 07/02/2023 Blood donor 02/26/2023 11/05/2023 Iron deficiency anemia due t o chronic blood loss 01/13/2023 11/05/2023 LVH (left ventricular hypertrophy) 01/13/2023 08/24/2024 Left knee injury 12/30/2022 11/05/2023 Arthritis of lumbar spine 12/26/2022 LDL (low density lipoprotein receptor disorder) 12/26/2022 04/23/2024 Primary osteoarthritis invol ving multiple joints 12/26/2022 02/26/2023 Type 2 diabetes mellitus wit h mild nonproliferative diabetic retinopathy with macular edema, right eye 12/26/2022 01/13/2023 Assessment & Plan (12/26/2022 3:56 PM EDT): Ozempic started at end of [address] Clay Right knee injury, initial encounter 12/26/2022 11/05/2023 Anemia 12/26/2022 11/05/2023 Type 2 diabetes mellitus wit hout complication, without long-term current use of insulin 09/15/2020 01/13/2023 Diverticular disease of colon 09/04/2020 08/24/2024 History of malignant neoplasm of thyroid 09/04/2020 04/23/2024 Other obesity due to excess calories 09/04/2020 11/05/2023 Papillary thyroid carcinoma 09/04/2020 08/24/2024 Presbyopia 06/15/2019 08/24/2024 Vitamin D deficiency 08/03/2018 023 External hemorrhoid 12/24/2017 11/05/19 24 Anxiety and depression 07/16/201707/02 Postoperative hypothyroidism 07/16/2017 04/23/2024 Pure hypercholesterolemia 06/07/2016 Encounters Date Type Department Care Team Description 12/17/2024 Refill [facility] [address] [place] [phone] Alecia Canela LPN Rash and other nonspecific skin eruption 12/16/2024 10:30 AM EDT Office Visit [facility] [address] [place] [address] Sailaja Green MD Melanocytic nevus of trunk (Primary Dx); History of SCC (squamous cell carcinoma) of skin; Lichen planopilaris; Seborrheic keratosis; Lentigines; Actinic keratosis; Rash and other nonspecific skin eruption 12/16/2024 Bamboo flowsheet [facility] [address] [place] [address] Sailaja Green MD 12/16/2024 Travel 12/14/2024 10:00 AM EDT Office Visit [facility] [address] [place] [address] Rekha Cornejo L, [employer] Pressure injury of buttock, stage 2, unspecified laterality (CMS/HCC) (Primary Dx) 12/14/2024 Travel 12/09/2024 Travel 12/07/2024 2:00 PM EDT Office Visit [facility] [address] [place] [phone] Rekha Cornejo L, [employer] Pressure injury of buttock, stage 2, unspecified laterality (CMS/HCC) (Primary Dx); Acute non-recurrent pansinusitis; Side effect of medication 12/07/2024 Telephone [facility] [address] [place] [phone] Zhane Miramontes LPN referral 12/07/2024 Travel 11/30/2024 Telephone [facility] [address] [place] [phone] Zhane Miramontes LPN Ozempic Pt Assistance 11/29/2024 Refill [facility] [address] [place] [phone] Jean Pierre Clay, DO Postoperative hypothyroidism ([facility]) 11/29/2024 Telephone [facility] [address] [place] [phone] Zhane Miramontes LPN 11/23/2024 Refill [facility] [address] [place] [address] Julio Manning, [employer] Major depressive disorder, single episode, severe without psychotic features (HCC) ([facility]) 11/21/2024 Refill [facility] [address] [place] [phone] Jean Pierre Clay, DO Type 2 diabetes mellitus with diabetic neuropathic arthropathy, without long-term current use of insulin ([facility]) 10/25/2024 11:30 AM EDT Ancillary Procedure [facility] [place] [address] [place] [phone] Encounter for screening mammogram for malignant neoplasm of breast 10/25/2024 11:00 AM EDT Ancillary Procedure [facility] [address] [place] [address] Postmenopausal 10/25/2024 Telephone [facility] [address] [place] [phone] Cathi Del Cid LPN 10/25/2024 Travel 10/22/2024 Travel 09/29/2024 9:15 AM EDT Office Visit [facility] [address] [place] [phone] Jean Pierre Clay, Primary osteoarthritis of both knees (Primary Dx) 09/29/2024 Travel 09/28/2024 Travel from Last 3 Months Immunizations Immunization Administration Dates Next Due Influenza, High Dose Seasonal, Preservative Free 04/08/2024 Influenza, High-dose Seasona l, Quadrivalent, Preservative Free 05/03/2022,04/08/2021 Influenza, Seasonal, Quadrivalent, Adjuvanted Influenza, trivalent, adjuvanted 04/27/2020 Pneumococcal Conjugate PCV 13 01/19/2018 Pneumococcal Polysaccharide PPSV23 12/27/2014 Tdap 11/03/2023,11/07/2016 Zoster, Recombinant 05/16/2023,03/12/2023 Family History Medical History Relation Name Comments Diabetes Brother 1 Len Hypercalcemia Brother 1 Len Arthritis Brother 2 Len Jr Cancer Brother 2 Len Jr Diabetes Brother 2 Len Jr Hypertension Brother 2 Len Jr Cancer Father Len Sr Arthritis Mother [place] Fcgyclq-Umwow-Upyrj disease Mother [place] Depression Mother [place] Diabetes Mother [place] Hearing loss Mother [place] Heart disease Mother [place] Hypertension Mother [place] Stroke Mother [place] Vision loss Mother [place] Colon cancer Mother's Sister Cancer Paternal Grandmother Jenna Due several Osteoporosis Paternal Grandmother Jenna Due No Known Problems Sister 1 Arthritis Sister 2 Mami Cancer Sister 2 Mami Osteoporosis Sister 2 Mami Diabetes Sister 3 Juan Miguel Relation Name Status Comments Brother 1 Len Brother 2 Len Jr Father Len Sr Mother [place] Alive Mother's Sister Paternal Grandmother Jenna Due Sister 1 2 sisters Sister 2 Mami Sister 3 Juan Miguel Social History Tobacco Use Types Packs/Day Years Used Date Smoking Tobacco: Former Cigarettes 1 26 0 07/21/1969 - 07/21/1995 Passive Smoke Exposure: Past Smokeless Tobacco: Never Tobacco Cessation:Counseling Given: Not Answered Comments:Past smoking hx unknown Alcohol Use Standard Drinks/Week Comments Not Currently [...] AM EDT Sexual Orientation Not on file Last Filed Vital Signs Vital Sign Reading Time Taken Comments Blood Pressure 100/60 12/07/2024 3:06 PM EDT Pulse 66 12/07/2024 3:06 PM EDT Temperature - - Respiratory Rate 16 12/07/2024 3:06 PM EDT Oxygen Saturation 97% 12/07/2024 3:06 PM EDT Inhaled Oxygen Concentration - - Weight 73.9 kg (163 lb) 09/29/2024 9:29 AM EDT Height 167.6 cm (5' 6 ) 08/24/2024 10:41 AM EST Body Mass Index 26.31 08/24/2024 10:41 AM EST Plan of Treatment Upcoming Encounters Date Type Department Care Team (Late st Contact Info) Description 12/23/2024 10:30 AM EDT Office Visit [facility] [address] [place] [address] Jean Pierre Clay DO [address] [place] [address] 01/13/2025 10:35 AM EDT Office Visit [facility] [address] [place] [address] Sailaja Green MD [address] [place] [address] 12/15/2025 9:05 AM EDT Office Visit [facility] [address] [place] [address] Sailaja Green MD [address] [place] [address] Health Maintenance Due Date Last Done Comments CT Colonography 1952 FIT-DNA 1952 FIT 1950 FOBT 1950 Sigmoidoscopy 1950 Pneumococcal Vaccine: 65+ Ye ars (3 of 3 - PCV20 or PCV21) 01/19/2023 01/19/2018, 12/27/2014 Diabetes: Retinopathy Screening 07/29/2024 07/29/2023, 11/28/2021, 09/07/2019, Additional history exists Diabetes: Hemoglobin A1C 11/16/2024 025, 06/18/2022, 02/08/2022, Additional history exists Diabetes: Urine Protein Screening 04/20/2025 04/20/2024, 08/09/2021, 02/07/2021, Additional history exists Medicare Annual Wellness (AWV) 08/24/2025 08/24/2024 , 02/13/2022 Mammogram 10/25/2025 10/25/2024, 06/21, 04/02/2022, Additional history exists Colonoscopy 12/11/2031 12/10/2021, 01/17/2017 Colorectal Cancer Screening 12/11/2031 Influenza Vaccine Completed 04/08/2024, , 05/03/2022, Additional history exists Procedures Procedure Name Priority Date/Time Associated Diagnosis Comments CRYOTHERAPY SKIN LESION Routine 12/16/2024 10:42 AM EDT Actinic keratosis BI MAMMOGRAM SCREENING TOMOSYNTHESIS BILATERAL Routine 10/25/2024 11:08 AM EDT Encounter for screening mammogram for malignant neoplasm of breast DEXA BONE DENSITY Routine 10/25/2024 10: 57 AM EDT Postmenopausal HEMOGLOBIN A1C Routine 06/18/2022 COLONOSCOPY Routine 12/10/2021 12:00 PM EDT COLOR FUNDUS PHOTOGRAPHY - OU - BOTH EYES Routine 11/28/2021 12:00 PM EDT MICROALBUMIN CREATININE RATIO, U Routine 08/09/2021 from Last 3 Months or Most Recently Relevant to Health Maintenance Results * Cryotherapy, skin lesion (12/16/2024 10:42 AM EDT) us Sailaja Green MD DERM PROCEDURE ORDERABLES Fin al Result * Bilateral screening mammogram with tomosynthesis (10/25/2024 11:08 AM EDT) Anatomical Region Laterality Modality Breast Bilateral Mammography 10/25/2024 2:01 PM EDT Impressions 10/25/2024 2:07 PM EDT Impression: No specific evidence of malignancy seen in either breast. BIRADS 2 - Benign Findings DENSITY: The breasts are heterogeneously dense, which may obscure small masses. FOLLOW-UP: Routine Screening Mammogram ELECTRONICALLY SIGNED BY: Amrik Trinidad M.D. Narrative 10/25/2024 2:07 PM EDT Examination: BI MAMMOGRAM SCREENING TOMOSYNTHESIS BILATERAL Clinical History: Screening Technique: Screening digital mammography study of both breasts was performed with 2-D and 3-D tomosynthesis imaging. Study was compared to the prior exam dated 07/17/2023. Findings: There is no evidence of interval dominant spiculated mass, grouped microcalcifications, or skin thickening which would be suggestive of malignancy. Mild scattered benign calcifications are noted bilaterally. Axillary lymph nodes are suggested on the right which appear grossly unremarkable. Procedure Note Amrik Triindad MD - 10/25/2024 Examination: BI MAMMOGRAM SCREENING TOMOSYNTHESIS BILATERAL Clinical History: Screening Technique: Screening digital mammography study of both breasts wasperformed with 2-D and 3-D tomosynthesis imaging. Study was compared tothe prior exam dated 07/17/2023. Findings: There is no evidence of interval dominant spiculated mass,grouped microcalcifications, or skin thickening which would be suggestiveof malignancy. Mild scattered benign calcifications are noted bilaterally. Axillary lymphnodes are suggested on the right which appear grossly unremarkable. IMPRESSION: Impression: No specific evidence of malignancy seen in either breast. BIRADS 2 - Benign Findings DENSITY: The breasts are heterogeneously dense, which may obscure smallmasses. FOLLOW-UP: Routine Screening Mammogram ELECTRONICALLY SIGNED BY: Amrik Trinidad M.D. Julio Manning NP IMG BI PROCEDURES Final Resu lt * DEXA bone density (10/25/2024 10:57 AM EDT) Anatomical Region Laterality Modality Body Digital Radiogra phy 10/25/2024 1:07 PM EDT Impressions 10/25/2024 1:09 PM EDT Impression: Findings compatible with osteoporosis with high increased fracture risk. Findings are mildly progressed compared to the prior exam. ELECTRONICALLY SIGNED BY: Amrik Trinidad M.D. Narrative 10/25/2024 1:09 PM EDT Examination: DEXA BONE DENSITY Clinical History: Asymptomatic menopausal state Technique: Bone density study was performed. T score values for the lumbar spine, right femoral neck and left femoral neck were obtained. Comparison: 04/02/2022. Findings: Value for the lumbar spine from L1-L4 is -1.7. Value for the right femoral neck is -2.6. Value for the left femoral neck is -2.9. Findings are compatible with osteoporosis with high increased fracture risk. Study was compared to the prior exam dated 04/02/2022 which demonstrates severe osteopenia with moderate to high increased fracture risk. Findings are mildly progressed compared to the prior exam. Procedure Note Amrik Trinidad MD - 10/25/2024 Examination: DEXA BONE DENSITY Clinical History: Asymptomatic menopausal state Technique: Bone density study was performed. T score values for the lumbarspine, right femoral neck and left femoral neck were obtained. Comparison: 04/02/2022. Findings: Value for the lumbar spine from L1-L4 is -1.7. Value for theright femoral neck is -2.6. Value for the left femoral neck is -2.9.Findings are compatible with osteoporosis with high increased fracturerisk. Study was compared to the prior exam dated 04/02/2022 whichdemonstrates severe osteopenia with moderate to high increased fracturerisk. Findings are mildly progressed compared to the prior exam. IMPRESSION: Impression: Findings compatible with osteoporosis with high increasedfracture risk. Findings are mildly progressed compared to the priorexam. ELECTRONICALLY SIGNED BY: Amrik Trinidad M.D. Julio Manning [employer] IMG DXA PROCEDURES Final Res ult * (ABNORMAL) Hemoglobin A1c (06/18/2022) GLYCOHEMOGLOBIN A1C 6.4(HH) 4.5 - 6.2 [facility] ADA RECOMMENDATION SEE BELOW [facility] Comment:ADA RECOMMENDED LIMI T 4.0 - 6.0 ADA THERAPEUTIC TARGET < 7.0 ACTION SUGGESTED > 7.0 EST AVG GLUCOSE 137 [facility] PERFORMING LAB: see note [facility] Comment:[address] Laboratory - [address] [address] ,Ext. [phone] 06/18/2022 Jean Pierre Clay DO LAB BLOOD ORDERABLES Final R esult [facility] * Colonoscopy (12/10/2021 12:00 PM EDT) Anatomical Region Laterality Modality Endoscopy 12/10/2021 12:0 0 PM EDT Narrative 12/10/2021 12:00 PM EDT PERFORMED AT [facility] LOCATION:[id number] Polyp,Diverticulosis Procedure Note CONVERSION, GENERIC - 12/04/2022 PERFORMED [address] [facility] LOCATION:[id number] Polyp,Diverticulosis us Jean Pierre Clay DO ENDOSCOPY PROCEDURE ORDERABL ES Final Result * Color Fundus Photography - OU - Both Eyes (11/28/2021 12:00 PM EDT) Anatomical Region Laterality Modality Head Fundus Photograp hy 11/28/2021 12:0 0 PM EDT Narrative 11/28/2021 12:00 PM EDT PERFORMED AT [facility] LOCATION:[id number] [facility] Procedure Note CONVERSION, GENERIC - 12/04/20[address] [facility] LOCATION:[id number] NDR us Jean Pierre Clay DO OPHTH PHOTOGRAPHY Final Resu lt * MICROALBUMIN CREATININE RATIO, U (08/09/2021) MALB 1.7 <=30.0 [facility] URINE CREAT 129.89 20.00 - 300.00 [facility] MALB CR RATIO 13.1 0.0 - 29.9 [facility] MALB CR RATIO RANGE SEE BELOW [facility] Comment:NO MICROALBUMINURIA 0-29 MG/G CLINICAL MICROALBUMINURIA 30-300 MG/G MACROALBUMINURIA >300 MG/G PERFORMING LAB: see note [facility] Comment:[facility] - [address] [address] ,[address]. [phone] 08/09/2021 us Jean Pierre Clay DO [facility] Final Result [facility] from Last 3 Months or Most Recently Relevant to Health Maintenance Insurance [employer] MEDICARE Advance Directives * Full Code (Latest Code Status on File) Date Activated Date Inactivated Comments 07/02/2023 10:49 AM Care Teams Stereoptician Relationship Specialty Start Date End Date Jean Pierre Clay DO [address] [place] [address] PCP - ACO Reach 12/12/22 Jean Pierre Clay DO [address] [place] [address] PCP - General Internal Medicine 08/21/23 Zac Gong MD [address] [place] [address] Referring Physician Sleep Medicine 07/02/23
--- OUTSIDE RECORDS SUMMARY | 2024-12-20 08:35 | XMS_ITS | Encounter Summary ---
Author Organization [facility] Healthcare Address [address] [place] [address] Care Team Providers Care Comb Setter Name Role Phone Jean Pierre Clay DO Unavailable [phone] Jean Pierre Clay DO Primary Care Provider [phone] Zac Gong MD Unavailable [phone] Jean Pierre Clay DO Primary Care Provider [phone] Reason for Visit * Reason Onset Date Comments Med Refill 07/29/2023 Encounter Details Date Type Department Care Team (Late st Contact Info) Description 07/29/2023 Refill [facility] [address] [place] [phone] Jean Pierre Clay DO [address] [facility] [address] [place] [address] Anxiety Social History Tobacco Use Types Packs/Day Years [...] Patient Health Questionnaire-2 Score 2 07/02/2023 Comments Unknown Sex and Gender Information Value [...] [address] [place] [address] Jean Pierre Clay DO [address] [place] [address] 01/13/2025 10:35 AM EDT Office Visit [facility] [address] [place] [address] Sailaja Green MD [address] [place] [address] 12/15/2025 9:05 AM EDT Office Visit [facility] [address] [place] [address] Sailaja Green MD [address] [place] [address] documented as of this encounter Visit Diagnoses Diagnosis Anxiety Anxiety state, unspecified documented in this encounter Additional Health Concerns Assessment Noted Time PHQ-9 Depression Total Score: 5 07/02/20 23 9:00 AM EST documented as of this encounter Care Teams Comb Setter Relationship Specialty Start Date End Date Jean Pierre Clay DO [address] [place] [address] PCP - ACO Reach 12/12/22 Jean Pierre Clay DO [address] [facility] [address] [place] [address] PCP - General Internal Medicine 01/13/23 08/20/23 Jean Pierre Clay DO [address] [facility] [address] [place] [address] PCP - General Internal Medicine 08/21/23 Zac Gong MD [address] [facility] [address] [place] [address] Referring Physician Sleep Medicine 07/02/23 documented as of this encounter
--- OUTSIDE RECORDS SUMMARY | 2024-12-20 08:35 | XMS_ITS | Clinical Summary ---
Author Organization [facility] Address [address] [place] [address] Care Team Providers Care Mandarin Teacher Name Role Phone Jean Pierre Clay MD Primary Care Provider [phone] Allergies Active Allergy Reactions Criticality Noted Date Comments Bupropion Hcl Nausea Only,Headache Medium 02/08/2024 Medications Medication Sig Dispensed Refills Start Date End Date Status atorvastatin (Lipitor) 40 mg tablet Take 40 mg by mouth in the morning. 08/11/2023 Active ReliOn Prime Test Strips strip 1 strip once daily as directed. 01/05/2024 Active busPIRone (Buspar) 5 mg tablet Take 5 mg by mouth 4 times a day. 08/06/2023 Active dicyclomine (Bentyl) 10 mg capsule Take 10 mg by mouth if needed in the morning, at noon, in the evening, and at bedtime (abd cramping). 11/05/2023 Active ibuprofen 800 mg tablet Take 800 mg by mouth if needed. 01/12/2024 Active levothyroxine (Synthroid, Levoxyl) 100 mcg tablet Take 100 mcg by mouth before breakfast. 08/11/2023 Active liothyronine (Cytomel) 5 mcg tablet Take 5 mcg by mouth in the morning. 01/12/2024 Active lisinopril 10 mg tablet Take 10 mg by mouth in the morning. 08/11/2023 Active pantoprazole (ProtoNix) 40 mg EC tablet Take 40 mg by mouth before breakfast. 08/11/2023 Active traZODone (Desyrel) 50 mg tablet Take 1 tablet by mouth at bedtime. 01/26/2024 Active venlafaxine XR (Effexor-XR) 150 mg 24 hr capsule Take 150 mg by mouth in the morning. 08/11/2023 Active oxyCODONE (Roxicodone) 5 mg immediate release tabletIndications:Open dislocation of proximal interphalangeal (PIP) joint of right middle finger Take 1 tablet (5 mg) by mouth every 6 (six) hours if needed for severe pain (8-10 pain score) (severe pain (8-10)) for up to 20 doses. 20 tablet 02/09/2024 Active Active Problems Problem Noted Date Diagnosed Date Diabetes mellitus, type 2 03/25/2024 Tendon pain 03/19/2024 Open dislocation of proximal interphalangeal (PIP) joint of right middle finger 02/08/2024 Finger injury, initial encounter 02/08/2024 Finger dislocation, initial encounter 02/08/2024 Social History Tobacco Use Types Packs/Day Years Used Date Smoking Tobacco: Never Smokeless Tobacco: Never Tobacco Cessation:Counseling Given: Not Answered Alcohol Use Standard Drinks/Week Comments Yes 0 (1 standard drink = 0.6 oz pur e alcohol) 1 [facility] Utilities Answer Date Recorded In the past 12 months has e House Party, gas, oil, or water [employer] threatened to shut off services in your home? No 02/09/2024 Humiliation, Afraid, Rape, and Kick questionnair e Answer Date Recorded Within the last year, have y ou been afraid of your partner or ex-partner? No 06/22/2024 Emotionally Abused Not on file 06/22/2024 Physically Abused Not on file 06/22/2024 Sexually Abused Not on file 06/22/2024 Overall Financial Resource Strain (CARDIA) Answe r Date Recorded How hard is it for you to pa y for the very basics like food, housing, medical care, and heating? Not hard at all 02/09/2024 PHQ-2 Answer Date Recorded Patient Health Questionnaire-2 Score 0 06/22/2024 Transportation Answer Date Recorded In the past 12 months, has l ack of transportation kept you from medical appointments or from getting medications? No 02/09/2024 Lack of Transportation (Non-Medical) Not on file 02/09/2024 Housing Stability Vital Sign Answer Daniel e Recorded Unable to Pay for Housing in the Last Year Not o n file 02/09/2024 Number of Places Lived in the Last Year Not on f ile 02/09/2024 In the last 12 months, was t here a time when you did not have a steady place to sleep or slept in a jail (including now)? No 02/09/2024 Hunger Vital Sign Answer Date Recorded Within the past 12 months, y ou worried that your food would run out before you got the money to buy more. Never true 02/09/20 24 Ran Out of Food in the Last Year Not on file 02/09/2024 Sex and Gender Information Value Date Recorded Sex Assigned at Female 02/12/2024 4:06 PM EDT Gender Identity Female 02/12/2024 4:06 PM EDT Sexual Orientation Heterosexual or Straight 01/19 4:06 PM EDT Last Filed Vital Signs Vital Sign Reading Time Taken Comments Blood Pressure 116/68 03/25/2024 1:40 PM EDT Pulse 73 03/25/2024 1:40 PM EDT Temperature 36 C (96.8 F) 03/25/2024 1:40 PM EDT Respiratory Rate 16 03/25/2024 1:40 PM EDT Oxygen Saturation 98% 03/25/2024 1:40 PM EDT Inhaled Oxygen Concentration - - Weight 70.8 kg (156 lb) 08/04/2024 2:16 PM EST Height 167.6 cm (5' 6 ) 08/04/2024 2:16 PM EST Body Mass Index 25.18 08/04/2024 2:16 PM EST Plan of Treatment Health Maintenance Due Date Last Done Comments CT Colonography 1952 FIT-DNA 1952 FIT 1952 FOBT 1952 Medicare Annual Wellness (AWV) 1952 Sigmoidoscopy 1952 Diabetes: Retinopathy Screening 1962 Diabetes: Urine Protein Screening 12/14/1971 Pneumococcal Vaccine: 65+ Years (3 of 3 - PPSV23 or PCV20) 12/28/2019 01/19/2018, 12/27/2014 Diabetes: Hemoglobin A1C 09/17/2022 06/18/2022 COVID-19 Vaccine ( season) 2024 04/11/2023, 05/03/2022, 06/13/2021, Additional history exists Depression Screening 06/22/2025 06/22/2024 Fall Risk Screening 06/22/2025 06/22/2024 Mammogram 07/17/2025 07/17/2023 Colonoscopy 12/11/2031 12/10/2021 Colorectal Cancer Screening 12/11/2031 Adult Tetanus 11/02/2033 11/03/2023, 11/07/2016 Zoster Vaccines Completed 05/16/2023, 03/12/2023 Influenza Vaccine Completed 04/08/2024, , 05/03/2022, Additional history exists HIB Vaccines Aged Out No longer eligi ble based on patient's age to complete this topic HPV Vaccines Aged Out No longer eligi ble based on patient's age to complete this topic IPV Vaccines Aged Out No longer eligi ble based on patient's age to complete this topic Meningococcal B Vaccine Aged Out No l onger eligible based on patient's age to complete this topic Meningococcal Vaccine Aged Out No rosanna zeus eligible based on patient's age to complete this topic Rotavirus Vaccines Aged Out No longer eligible based on patient's age to complete this topic Medical Devices Implanted Type Area Production Zone Leader Device Identifier Shelf Expiration Date Model / Serial / Lot K-Wire,1.1,120m m - [id number] Implanted:Qty: 2 on 02/09/2024 by Deniz Roldan MD at [facility] Pin Right: Middle Finger TRIMED WIRE-1.08/01 0 / / Advance Directives * Full Code (Latest Code Status on File) Date Activated Date Inactivated Comments 02/08/2024 9:09 PM 02/09/2024 8:55 PM Care Teams Mandarin Teacher Relationship Specialty Start Date End Date Jean Pierre Clay MD [address] [place] [id number] PCP - General Internal Medicine 02/09/24
--- OUTSIDE RECORDS SUMMARY | 2024-12-20 08:35 | XMS_ITS | Clinical Summary ---
Author Organization [facility] Address [address] [place] [address] Phone Care Team Providers Care Sausage Wrapper Name Role Phone Jairo Downs MD Primary Care Provider [phone] Social History Tobacco Use Types Packs/Day Years Used Date Smoking Tobacco: Never Assessed Comments Unknown Sex and Gender Information Value Date Recorded Sex Assigned at Not on file Legal Sex Female 11:40 AM EST Gender Identity Not on file Sexual Orientation Not on file Plan of Treatment Health Maintenance Due Date Last Done Comments Bone Density Scan 1952 CT Colonography 1952 Colonoscopy 1952 Colorectal Cancer Screening 1952 FIT-DNA (Cologuard) 1952 FIT 1952 Lipid Panel 1952 Sigmoidoscopy 1952 Yearly Adult Physical 1952 Hepatitis C Screening 1970 DTaP/Tdap/Td Vaccines (1 - Tdap) 1974 Mammogram 1992 Pneumococcal Vaccine (1 of 1 - PCV) 2002 Zoster Vaccines (1 of 2) 2002 COVID-19 Vaccine ( - 2023-2 5 season) 2024 Influenza Vaccine (Season Ended) 2025 RSV High Risk: (Elderly (60+ ) or Population) (1 - 1-dose 75+ series) 12/14/2027 HIB Vaccines Aged Out No longer eligi ble based on patient's age to complete this topic HPV Vaccines Aged Out No longer eligi ble based on patient's age to complete this topic Hepatitis A Vaccines Aged Out No long er eligible based on patient's age to complete this topic Hepatitis B Vaccines Aged Out No long er eligible based on patient's age to complete this topic IPV Vaccines Aged Out No longer eligi ble based on patient's age to complete this topic Meningococcal Vaccine Aged Out No rosanna zeus eligible based on patient's age to complete this topic Rotavirus Vaccines Aged Out No longer eligible based on patient's age to complete this topic Care Teams Sausage Wrapper Relationship Specialty Start Date End Date Jairo Downs MD [address] [facility] [phone] PCP - General 01/03/23
--- OUTSIDE RECORDS SUMMARY | 2024-12-20 08:35 | XMS_ITS | Encounter Summary ---
Author Organization [facility] Address [address] [facility] [place] [address] Care Team Providers Care Jewelry Bench Worker Name Role Phone Jean Pierre Clay DO Unavailable [phone] Jean Pierre Clay DO Primary Care Provider Zac Gong MD Unavailable [phone] Jean Pierre Clay DO Primary Care Provider [phone] Encounter Details Date Type Department Care Team (Late st Contact Info) Description 12/26/2022 Orders Only [facility] [address] [facility] [address] [place] [phone] Provider, MD Vianey [address] [place] [address] Social History Tobacco Use Types Packs/Day [...] [address] [place] [address] Jean Pierre Clay DO [address] [place] [address] 01/13/2025 10:35 AM EDT Office Visit [facility] [address] [place] [address] Sailaja Green MD [address] [place] [address] 12/15/2025 9:05 AM EDT Office Visit [facility] [address] [place] [address] Sailaja Green MD [address] [place] [address] documented as of this encounter Procedures Procedure Name Priority Date/Time Associated Diagnosis Comments SCANNED LABS Routine 12/21/2022 4:20 PM EDT documented in this encounter Results * SCANNED LABS (12/21/2022 4:20 PM EDT) us Historical Provider LAB CHG PERFORMABLES Thao l Result documented in this encounter Visit Diagnoses Not on filedocumented in this encounter Care Teams Jewelry Bench Worker Relationship Specialty Start Date End Date Jean Pierre Clay DO [address] [place] [address] PCP - ACO Reach 12/12/22 Jean Pierre Clay DO [address] [place] [address] PCP - General Internal Medicine 01/13/23 08/20/23 Jean Pierre Clay DO [address] [place] [address] PCP - General Internal Medicine 08/21/23 Zac Gong MD [address] [place] [address] Referring Physician Sleep Medicine 07/02/23 documented as of this encounter
--- OUTSIDE RECORDS SUMMARY | 2024-12-20 08:35 | XMS_ITS | Encounter Summary ---
Author Organization [facility] Address [address] [facility] [place] [address] Care Team Providers Care Forge Operator Helper Name Role Phone Jean Pierre Clay DO Unavailable [phone] Zac Gong MD Unavailable [phone] Jean Pierre Clay DO Primary Care Provider Encounter Details Date Type Department Care Team (Late st Contact Info) Description 03/12/2024 Orders Only [facility] [address] [facility] [address] [place] [address] A, Unknown Practice [address] [place], [place] [phone] Social History Tobacco Use Types Packs/Day Years [...] [address] [place] [address] Jean Pierre Clay DO [address] [place] [address] 01/13/2025 10:35 AM EDT Office Visit [facility] [address] [place] [address] Sailaja Green MD [address] [place] [address] 12/15/2025 9:05 AM EDT Office Visit [facility] [address] [place] [address] Sailaja Green MD [address] [place] [address] documented as of this encounter Procedures Procedure Name Priority Date/Time Associated Diagnosis Comments XR FINGER 2ND DIGIT RIGHT MIN 2 VIEWS Routine 03/12/2024 8:08 AM EDT documented in this encounter Results * XR FINGER 2ND DIGIT RIGHT MIN 2 VIEWS (03/12/2024 8:08 AM EDT) Anatomical Region Laterality Modality Radiographic Felicitas ging us Unknown Practice A IMG XR PROCEDURES Final Resul t documented in this encounter Visit Diagnoses Not on filedocumented in this encounter Additional Health Concerns Assessment Noted Time PHQ-9 Depression Total Score: 5 07/02/20 9:00 AM EST documented as of this encounter Care Teams Forge Operator Helper Relationship Specialty Start Date End Date Jean Pierre Clay DO [address] [place] [address] PCP - ACO Reach 12/12/22 Jean Pierre Clay DO [address] [place] [address] PCP - General Internal Medicine 08/21/23 Zac Gong MD [address] [place] [address] Referring Physician Sleep Medicine 07/02/23 documented as of this encounter
--- OUTSIDE RECORDS SUMMARY | 2024-12-20 08:35 | XMS_ITS | Encounter Summary ---
Author Organization [facility] Address [address] [place] [address] Care Team Providers Care Retail Product Demo Specialist Name Role Phone Jean Pierre Clay DO Unavailable [phone] Zac Gong MD Unavailable [phone] Jean Pierre Clay DO Primary Care Provider Encounter Details Date Type Department Care Team (Late st Contact Info) Description 12/16/2024 Bamboo flowsheet [facility] [address] [facility] [address] [place] [address] Sailaja Green MD [address] [facility] [address] [place] [address] Social History Tobacco Use Types [...] [address] [place] [address] Jean Pierre Clay DO [address] [place] [address] 01/13/2025 10:35 AM EDT Office Visit [facility] [address] [place] [address] Sailaja Green MD [address] [place] [address] 12/15/2025 9:05 AM EDT Office Visit [facility] [address] [place] [address] Sailaja Green MD [address] [place] [address] documented as of this encounter Visit Diagnoses Not on filedocumented in this encounter Additional Health Concerns Assessment Noted Time PHQ-9 Depression Total Score: 5 08/24/19 25 10:00 AM EST documented as of this encounter Care Teams Retail Product Demo Specialist Relationship Specialty Start Date End Date Jean Pierre Clay DO [address] [place] [address] PCP - ACO Reach 12/12/22 Jean Pierre Clay DO [address] [place] [address] PCP - General Internal Medicine 08/21/23 Zac Gong MD [address] [place] [address] Referring Physician Sleep Medicine 07/02/23 documented as of this encounter
--- OUTSIDE RECORDS SUMMARY | 2024-12-20 08:35 | XMS_ITS | Encounter Summary ---
Author Organization [facility] Address [address] [place] [address] Care Team Providers Care Lithograph Press Operator Name Role Phone Jean Pierre Clay DO Unavailable [phone] Zac Gong MD Unavailable [phone] Jean Pierre Clay DO Primary Care Provider Encounter Details Date Type Department Care Team (Late st Contact Info) Description 02/09/2024 Orders Only [facility] [address] [facility] [address] [place] [address] A, Unknown Practice [address] [place], [place] [phone] Social History Tobacco Use Types Packs/Day Years [...] [address] [place] [address] Jean Pierre Clay DO [address] [place] [address] 01/13/2025 10:35 AM EDT Office Visit [facility] [address] [place] [address] Sailaja Green MD [address] [place] [address] 12/15/2025 9:05 AM EDT Office Visit [facility] [address] [place] [address] Sailaja Green MD [address] [place] [address] documented as of this encounter Procedures Procedure Name Priority Date/Time Associated Diagnosis Comments XR HAND 1-2 VIEWS RIGHT Routine 02/09/2024 11:54 AM EDT documented in this encounter Results * XR hand 1 or 2 views right (02/09/2024 11:54 AM EDT) Anatomical Region Laterality Modality Upper Extremities, Hand Right Radiogra phic Imaging us Unknown Practice A IMG XR PROCEDURES Final Resul t documented in this encounter Visit Diagnoses Not on filedocumented in this encounter Additional Health Concerns Assessment Noted Time PHQ-9 Depression Total Score: 5 07/02/20 9:00 AM EST documented as of this encounter Care Teams Lithograph Press Operator Relationship Specialty Start Date End Date Jean Pierre Clay DO [address] [place] [address] PCP - ACO Reach 12/12/22 Jean Pierre Clay DO [address] [place] [address] PCP - General Internal Medicine 08/21/23 Zac Gong MD [address] [facility] [address] [place] [address] Referring Physician Sleep Medicine 07/02/23 documented as of this encounter
--- OUTSIDE RECORDS SUMMARY | 2024-12-20 08:35 | XMS_ITS | Encounter Summary ---
Author Organization [facility] Address [address] [place] [address] Care Team Providers Care Licensing Engineer Name Role Phone Jean Pierre Clay DO Unavailable [phone] Zac Gong MD Unavailable [phone] Jean Pierre Clay DO Primary Care Provider [phone] Encounter Details Date Type Department Care Team (Late st Contact Info) Description 04/08/2024 Abstract [facility] [address] [facility] [address] [place] [address] Juliette Cornejo [facility] [address] [facility] [address] [place] [address] Social History Tobacco Use Types Packs/Day Years [...] [address] [place] [address] Jean Pierre Clay DO [address] [place] [address] 01/13/2025 10:35 AM EDT Office Visit [facility] [address] [place] [address] Sailaja Green MD [address] [place] [address] 12/15/2025 9:05 AM EDT Office Visit [facility] [address] [place] [address] Sailaja Green MD [address] [place] [address] documented as of this encounter Visit Diagnoses Not on filedocumented in this encounter Additional Health Concerns Assessment Noted Time PHQ-9 Depression Total Score: 5 07/02/20 9:00 AM EST documented as of this encounter Care Teams Licensing Engineer Relationship Specialty Start Date End Date Jean Pierre Clay DO [address] [place] [address] PCP - ACO Reach 12/12/22 Jean Pierre Clay DO [address] [place] [address] PCP - General Internal Medicine 08/21/23 Zac Gong MD [address] [place] [address] Referring Physician Sleep Medicine 07/02/23 documented as of this encounter
--- OUTSIDE RECORDS SUMMARY | 2024-12-20 08:35 | XMS_ITS | Encounter Summary ---
Author Organization [facility] Address [address] [facility] [place] [address] Care Team Providers Care Neurophysiological Technician Name Role Phone Jean Pierre Clay DO Unavailable [phone] Zac Gong MD Unavailable Jean Pierre Clay DO Primary Care Provider [phone] Reason for Visit * Reason Onset Date Comments Med Refill 12/17/2024 Encounter Details Date Type Department Care Team (Late st Contact Info) Description 12/17/2024 Refill [facility] [address] [facility] [address] [place] [address] Alecia Canela LPN Rash and other nonspecific skin eruption Social [...] encounter Miscellaneous Notes * Telephone Encounter - Alecia Canela LPN - 12/17/2024 10:38 AM EDT Pt sent message via My Chart requesting rx for TAC 0.1% cream as previously discussed at last office visit. This was sent to [facility] as requested. documented in this encounter Plan of Treatment Upcoming Encounters Date Type Department Care Team (Late st Contact Info) Description 12/23/2024 10:30 AM EDT Office Visit [facility] [address] [place] [address] Jean Pierre Clay DO [address] [place] [address] 01/13/2025 10:35 AM EDT Office Visit [facility] [address] [place] [address] Sailaja Green MD [address] [place] [address] 12/15/2025 9:05 AM EDT Office Visit [facility] [address] [place] [address] Sailaja Green MD [address] [place], [place] [phone] documented as of this encounter Visit Diagnoses Diagnosis Rash and other nonspecific skin eruption documented in this encounter Additional Health Concerns Assessment Noted Time PHQ-9 Depression Total Score: 5 08/24/19 25 10:00 AM EST documented as of this encounter Care Teams Neurophysiological Technician Relationship Specialty Start Date End Date Jean Pierre Clay DO [address] [place] [address] PCP - ACO Reach 12/12/22 Jean Pierre Clay DO [address] [facility] [address] [place] [address] PCP - General Internal Medicine 08/21/23 Zac Gong MD [address] [facility] [address] [place] [address] Referring Physician Sleep Medicine 07/02/23 documented as of this encounter
--- OUTSIDE RECORDS SUMMARY | 2024-12-20 08:35 | XMS_ITS | Referral Summary ---
Author Organization [facility] Address [address] [place] [address] Care Team Providers Care Slice Cutting Machine Operator Name Role Phone Jean Pierre Clay MD Primary Care Provider [phone] Allergies Active Allergy Reactions Criticality Noted Date [...] oz pur e alcohol) 1 A MONTH [facility] Utilities Answer Date Recorded In the past 12 months has e [employer], gas, oil, or water [employer] threatened to shut off services in your [...] place to sleep or slept in a mcc (including now)? No 02/09/2024 Hunger Vital Sign [...] 08/04/2024 2:16 PM EST Plan of Treatment Not on file Medical Devices Implanted Type Area Housekeeping Staff Device Identifier Shelf Expiration Date Model / Serial / Lot K-Wire,1.1,120m m - [id number] Implanted:Qty: 2 on 02/09/2024 by Deniz Roldan MD at [facility] Pin Right: Middle Finger TRIMED WIRE-1.08/01 [id number] / / Advance Directives * Full Code (Latest Code Status on File) Date Activated Date Inactivated Comments 02/08/2024 9:09 PM 02/09/2024 8:55 PM Care Teams Slice Cutting Machine Operator Relationship Specialty Start Date End Date Jean Pierre Clay MD [address] [facility] [address] [place] [address] PCP - General Internal Medicine 02/09/24
--- OUTSIDE RECORDS SUMMARY | 2024-12-20 08:35 | XMS_ITS | Encounter Summary ---
Author Organization [facility] Address [address] [place] [address] Care Team Providers Care Laser Operator Name Role Phone Jean Pierre Clay DO Unavailable [phone] Jean Pierre Clay DO Primary Care Provider [phone] Zac Gong MD Unavailable [phone] Jean Pierre Clay DO Primary Care Provider [phone] Encounter Details Date Type Department Care Team (Late st Contact Info) Description 12/08/2022 Abstract [facility] [address] [facility] [address] [place] [id number] Deepika Verde, MANAGER LONG TERM CARE-CONCRETE CRUSHER LOADER OPERATOR [address] [facility] [address] [place] [address] Social History Tobacco Use Types Packs/Day Years Used Date Smoking Tobacco: Former Cigarettes 0 07/21/1969 - 07/21/1995 Tobacco Cessation:Counseling Given: Not Answered Comments:Past smoking hx unknown Alcohol Use Standard Drinks/Week Comments Yes 0 [...] suspected to have Coronavirus/COVID-19? No / Unsure 12/04/2022 10:02 AM EDT documented as of this encounter Plan of Treatment Upcoming Encounters Date Type Department Care Team (Late st Contact Info) Description 12/23/2024 10:30 AM EDT Office Visit [facility] [address] [place] [phone] Jean Pierre Clay DO [address] [place] [address] 01/13/2025 10:35 AM EDT Office Visit [facility] [address] [place] [address] Sailaja Green MD [address] [place] [address] 12/15/2025 9:05 AM EDT Office Visit [facility] [address] [place] [address] Sailaja Green MD [address] [place] [address] documented as of this encounter Visit Diagnoses Not on filedocumented in this encounter Care Teams Laser Operator Relationship Specialty Start Date End Date Jean Pierre Clay DO [address] [place] [address] PCP - ACO Reach 12/12/22 Jean Pierre Clay DO [address] [place] [address] PCP - General Internal Medicine 01/13/23 08/20/23 Jean Pierre Clay DO [address] [place] [address] PCP - General Internal Medicine 08/21/23 Zac Gong MD [address] [facility] [address] [place] [address] Referring Physician Sleep Medicine 07/02/23 documented as of this encounter
--- OUTSIDE RECORDS SUMMARY | 2024-12-20 08:35 | XMS_ITS | Encounter Summary ---
Author Organization [facility] Address [address] [place] [address] Care Team Providers Care Shoe Coverer Name Role Phone Jean Pierre Clay DO Unavailable [phone] Jean Pierre Clay DO Primary Care Provider [phone] Zac Gong MD Unavailable [phone] Jean Pierre Clay DO Primary Care Provider [phone] Encounter Details Date Type Department Care Team (Late st Contact Info) Description 04/29/20[address] Abstract [facility] [address] [facility] [address] [place] [address] Juliette Cornejo LISW-S [address] [facility] [address] [place] [address] Social History Tobacco Use Types Packs/Day Years [...] suspected to have Coronavirus/COVID-19? No / Unsure 04/30/2023 8:40 AM EDT documented as of this encounter Plan of Treatment Upcoming Encounters Date Type Department Care Team (Late st Contact Info) Description 12/23/2024 10:30 AM EDT Office Visit [facility] [address] [place] [address] Jean Pierre Clay DO [address] [place] [address] 01/13/2025 10:35 AM EDT Office Visit [facility] [address] [place] [address] Sailaja Green MD [address] [place] [address] 12/15/2025 9:05 AM EDT Office Visit [facility] [address] [place] [address] Sailaja Green MD [address] [place] [address] documented as of this encounter Visit Diagnoses Not on filedocumented in this encounter Additional Health Concerns Assessment Noted Time PHQ-9 Depression Total Score: 24 08/31/2 023 10:00 AM EDT documented as of this encounter Care Teams Shoe Coverer Relationship Specialty Start Date End Date Jean Pierre Clay DO [address] [place] [address] PCP - ACO Reach 12/12/22 Jean Pierre Clay DO [address] [place] [address] PCP - General Internal Medicine 01/13/23 08/20/23 Jean Pierre Clay DO [address] [place] [address] PCP - General Internal Medicine 08/21/23 Zac Gong MD [address] [place] [address] Referring Physician Sleep Medicine 07/02/23 documented as of this encounter
[2024-12-20 09:24] LABS: Creatinine Urine Random 41.86 mg/dL (20.00-300.00); Microalbumin Urine Random <1.3 mg/dL (<=30.0)
[2024-12-20 09:25] LABS: Estimated Average Glucose 126 mg/dL
[2024-12-20 09:44] LABS: Alanine Aminotransferase 29 U/L (14-59); Albumin Globulin Ratio 0.9; Albumin Level 3.1 g/dL (3.4-5.0); Alkaline Phosphatase 81 U/L (46-116); Anion Gap 12.6; Aspartate Amino Transferase 19 U/L (15-37); BUN Creatinine Ratio 21.1; Bilirubin Total 0.5 mg/dL (0.2-1.0); Carbon Dioxide 29.8 mmol/L (21.0-32.0); Chloride 106 mmol/L (98-107); Chol HDL Ratio 2.2; Cholesterol 161 mg/dL (<=200); Estimated GFR (African America >60 (>=60 mL/min/1.73m^2); Estimated GFR (Non-African Ame >60 (>=60 mL/min/1.73m^2); Globulin 3.4 g/dL; Glucose 93 mg/dL (74-106); HDL Cholesterol 72 mg/dL (40-60); Potassium 5.4 mmol/L (3.5-5.1); Sodium 143 mmol/L (136-145); Total Protein 6.5 g/dL (6.4-8.2); Triglycerides 84 mg/dL (<=150); VLDL CHOLESTEROL 16.8 mg/dL
== END 2024-12-20 08:33 | disposition home or self-care (01) ==
PROVIDERS: PCP Internal Medicine; Visit Provider Nurse Practitioner Adult Health
DX: E78.2 Mixed hyperlipidemia (principal); E11.69 Type 2 diabetes mellitus with other specified complication; I10 Essential (primary) hypertension
CPT/HCPCS: 36415; 80053; 80061; 82043; 82570; 83036

== ENCOUNTER 2025-06-24 08:18 | Outpatient (OUT) | payer MEDICARE, SELFPAY ==
--- OUTSIDE RECORDS SUMMARY | 2025-06-24 08:22 | XMS_ITS | CCD ---
Author Organization [facility] Care Team Providers Care Capacity Planning Manager Name Role Phone Le Lam Unavailable DO Jean Pierre Kim Primary Care Provider [phone] MD Le Lam Attending Provider [phone] JULIO, DR MORAN Primary Care Unavailable [...] DO Jean Pierre Kim Primary Care Provider [phone] ANGEL Valladares Attending Provider Dr. Jairo Downs Primary Care Unavailable DO Jean Pierre Kim Primary Care Provider [phone] RG Alonzo Attending Provider Meme Gong Unavailable Jean Pierre Kim DO Unavailable [phone] Meme Gong MD Unavailable Jean Pierre Kim DO Primary Care Provider YULI, DENIZ Attending Unavailable SKIE, DENIZ Attending [...] DIABSTACEY Referring Unavailable SKIE, DENIZ Attending Unavailable Jean Pierre Kim DO Primary Care Provider Leti Salter MD Attending Provider Meme Gong MD Unavailable [phone] Jean Pierre Kim DO Primary Care Provider [phone] Leti Salter MD Attending Provider Davi Naranjo MD Attending Provider [phone] Jean Pierre Kim Primary Care Unavailable Davi Naranjo II Admitting UnavailDavi Arellano II Attending Unavailabl e Leti Salter Attending Unavailable Jean Pierre Kim Primary Care Unavailable Leti Salter Admitting Unavailable Leti Salter Attending Unavailable Jean Pierre Kim Primary Care Unavailable Leti Salter R Admitting Unavailable Leti Salter R Attending Unavailable Jean Pierre Kim Primary Care Unavailable Leti Salter Admitting Unavailable Davi Vincent MD Primary Care Provider [phone] LYNNETTE BALDWIN Attending Unavailable SKIE, DENIZ C Referring Unavailable LYNNETTE BALDWIN Attending Unavailable SKIE, DENIZ C Referring Unavailable ALECIA ANTONY Attending Unavailable ADAME, DENIZ C Referring Unavailable JULIO OLIVA Attending Unavailable JULIO OLIVA Referring Unavailable JEAN PIERRE KIM Attending Unavailable JEAN PIERRE KIM Attending Unavailable JEAN PIERRE KIM Attending Unavailable JULIO OLIVA Referring Unavailable JULIO OLIVA Referring Unavailable JEAN PIERRE KIM Referring Unavailable REKHA CORNEJO Attending Unavailable JEAN PIERRE KIM Referring Unavailable REKHA CORNEJO Attending Unavailable PETITTIFLORECITA Attending Unavailable JEAN PIERRE KIM Attending Unavailable AUGUSTA MCNAIR Attending Unavailable JEAN PIERRE KIM Attending Unavailable ALECIA ANTONY Attending Unavailable ADAMEDENIZ Referring Unavailable BLACKSTON, ALECIA Attending Unavailable SKIE, DENIZ Mcadams Referring Unavailable BLACKSTON, ALECIA Attending Unavailable SKIE, DENIZ Mcadams Referring Unavailable BLACKSTON, ALECIA Attending Unavailable SKIE, DENIZ C Referring Unavailable REXROAD, LYNNETTE Attending Unavailable SKIE, DENIZ C Referring Unavailable BLACKSTON, ALECIA Attending Unavailable SKIE, DENIZ C Referring Unavailable REXROAD, LYNNETTE Attending Unavailable SKIE, DENIZ C Referring Unavailable REXROAD, LYNNETTE Attending Unavailable SKIE, DENIZ Mcadams Referring Unavailable REXROAD, LYNNETTE Attending Unavailable ADAMEDENIZ Referring Unavailable CAMILLA ESTRADA Referring Unavailable JIM VELAZCO Attending Unavailable Allergies Allergy ClassificationReported Allergen(s)Allergy TypeDate of OnsetReaction(s) Facility (20 sources)buPROPionDrug [id number] (1 source)buPROPion; Translations: [BUPROPION HCL]Drug [id number] [facility] Medications Current Medications MedicationDrug Class(es)DatesSig (Normalized)Sig (Original)acetaminophen 325 mg oral tablet (8 sources)Start: 19-45-6676stfluyxvwmuxe (GoodSense Pain Relief) 325 MG tablet Take by mouth 02/10/2024 Activeacetic acid 20 mg/ml / hydrocortisone 10 mg/ml otic solution (2 sources)CorticosteroidStart: 04-06-2025 End: 66-38-2626lozemv acid-hydrocortisone (Vosol-HC) otic solution Indications: Acute eczematoid otitis externa ofboth ears Administer 4 drops into affected ear(s) 4 (four) times a day as needed (itching) for up to 7 days 10 mL 04/06/2025 04/13/2025 Activeamoxicillin 875 mg / clavulanate 125 mg oral tablet (11 sources)Penicillin-class AntibacterialStart: 12-07-2024 End: 79-90-1354ngzv 1 tablet by mouth in the morningamoxicillin-clavulanate (Augmentin) 875-125 MG tablet Indications: Pressure injury of buttock, stage 2, unspecified laterality (CMS/HCC) , Acute non-recurrent pansinusitis Take 1 tablet (875 mg) by mouth in the morning and 1 tablet (875 mg) before bedtime. Do all this for 10 days. 20 tablet 12/07/2024 12/16/2024 Discontinued (Therapy completed)Start: 95-70-5327imms 1 tablet by mouth every twelve hoursAmoxicillin- Pot Clavulanate 875-125 MG 1 tablet Orally every 12 hrs for 10 day(s) Oct, Not-Taking/PRNascorbic acid 1000 mg oral tablet (6 sources)Vitamin CAscorbic Acid (vitamin C) 1000 MG tablet 1 (one) time each day at the same time. 0 Activeatorvastatin 40 mg oral tablet (20 sources)HMG-CoA Reductase InhibitorStart: 11-53-7058aqrt 1 tablet by mouth once dailyatorvastatin (Lipitor) 40 MG tablet Indications: LDL (low density lipoprotein receptor disorder) Take 1 tablet (40 mg) by mouth Daily 90 tablet 12/28/2024 ActiveBerberine Complex (4 sources)Berberine Complex Activebetamethasone 0.0005 mg/mg topical ointment (20 sources)CorticosteroidStart: 94-85-4678ezrtbokkjdqvl dipropionate (Diprolene) 0.05 % ointment Indications: Other atopic dermatitis Apply to affected areas, up to twice a day when flared, do not use one the face, groin, or underarms, 30 day supply 45 g 11 06/24/2023 ActivebusPIRone hydrochloride 5 mg oral tablet (20 sources)Start: 08-06-2023 End: 15-09-2031sweMDOtml (Buspar) 5 MG tablet Indications: Anxiety Take 1 tablet (5 mg) by mouth in the morning and 1 tablet (5 mg) at noon and 1 tablet (5 mg) in the evening and 1 tablet (5 mg) before bedtime. 360tablet 3 07/26/2024 Active busPIRone HCl 5 MG Oral for 10 Days ActiveCalcium Carbonate (13 sources)take 500 mg by mouth every twelve hoursCalcium Carbonate (CALCIUM 500 PO) Take 500 mg by mouth every 12 (twelve) hours Activecholecalciferol 0.05 mg oral tablet (13 sources)Vitamin Dtake 1 tablet by mouth once dailycholecalciferol (Vitamin D-3) 50 MCG (1999 UT) tablet Take 2,000 Units by mouth Daily Active cyclobenzaprine hydrochloride 5 mg oral tablet (20 sources)Muscle RelaxantStart: 93-72-0826aenp 1 tablet by mouth in the morningcyclobenzaprine (Flexeril) 5 MG tablet Indications: Muscle spasm Take 1 tablet (5 mg) by mouth in the morning and 1 tablet (5 mg) before bedtime. 180 tablet 3 06/23/2024 ActiveStart: 31-78-8842mkfg 1 tablet by mouth in the morning cyclobenzaprine (Flexeril) 5 MG tablet Indications: Muscle spasm Take 1 tablet (5 mg) by mouth in the morning and 1 tablet (5 mg) before bedtime. 180 tablet 3 04/05/2024 ActiveStart: 05-62-0307xgir 1 tablet by mouth in the morning cyclobenzaprine (Flexeril) 5 MG tablet Indications: Muscle spasm Take 1 tablet (5 mg) by mouth in the morning and 1 tablet (5 mg) before bedtime. 180 tablet 3 08/11/2023 Activedicyclomine hydrochloride 10 mg oral capsule (20 sources)AnticholinergicStart: 34-40-6735orxx 1 capsule by mouth four times daily as needed for paindicyclomine (Bentyl) 10 MG capsule Indications: Irritable bowel syndrome with constipation Take 1 capsule (10 mg) by mouth 4 (four) times a day as needed (abdominal pain or cramps) 120 capsule 2 06/21/2024 ActiveStart: 93-16-3602fzdj 1 capsule by mouth four times daily as needed for paindicyclomine (Bentyl) 10 MG capsule Indications: Irritable bowel syndrome with constipation Take 1 capsule (10 mg) by mouth 4 (four) times a day as needed (abdominal pain or cramps) 120 capsule 2 11/05/2023 Activeestrogens, conjugated (mcfp) 0.625 mg/ml vaginal cream (2 sources)EstrogenStart: 29-85-5737Chtrfapfd Conjugated (Premarin) 0.625 MG/GM cream Indications: Menopause , Vaginal dryness, menopausal Insert 0.5 g into the vagina in the morning. Use daily x2 weeks then use 2 times weekly. 30 g 3 1 09/17/2022 Activefluconazole 150 mg oral tablet (6 sources)Azole AntifungalStart: 12-07-2024 End: 93-90-6593pgmqsetdheu (Diflucan) 150 MG tablet Indications: Side effect of medication Take 1 tablet (150 mg) by mouth See administration instructions for 1 day Take one tab now. Repeat in 72 hours if symptoms persist. 2 tablet 12/07/2024 12/08/2024 ActiveStart: 55-22-1193Vgkkzxbm 150 MG 1 tablet Orally Take 1 tablet today, then take 1 tablet again in 3 days for 2 days Oct, Not-Taking/PRNfluocinonide 0.5 mg/ml topical solution (20 sources)CorticosteroidStart: 79-76-7474tablgmwjbccl (Lidex) 0.05 % external solution Indications: Lichen planopilaris Apply to affected areas on the scalp, up to once a day when flared, 30 day supply 20 mL 11 12/16/2023 Active fluticasone propionate 0.05 mg/actuat metered dose nasal spray (6 sources)CorticosteroidStart: 76-06-9965jhbs 2 spray(s) nasal route once daily as neededfluticasone (Flonase) 50 MCG/ACT nasal spray 2 sprays in each nostril Nasally daily as needed for 90 days 0 05/05/2018 Active2 ml sodium hyaluronate 10 mg/ml prefilled syringe (16 sources)Start: 09-16-2024 End: 74-51-5104Rxoqjt Hyaluronate (Viscosup) injection 20 mgStart: 09-16-2024 End: 83-67-0145Tsggiv Hyaluronate (Viscosup) injection 20 mgStart: 09-16-2024 End: 14-16-354458 mg, Intra-articular, Once, On Haley 09/16/24 at 1045, For 1 dose Start: 09-16-2024 End: 00-19-835022 mg, Intra-articular, Once, On Haley 09/16/24 at 1045, For 1 dose Start: 09-16-2024 End: 00-28-5974Zfsyww Hyaluronate (Viscosup) injection 20 mgStart: 09-16-2024 End: 17-84-1890Pdxaco Hyaluronate (Viscosup) injection 20 mgStart: 09-16-2024 End: 37-59-855373 mg, Intra-articular, Once, On Haley 09/16/24 at 1045, For 1 dose Start: 09-16-2024 End: 58-66-750613 mg, Intra-articular, Once, On Haley 09/16/24 at 1045, For 1 dose Start: 09-08-2024 End: 90-08-4436Vbpkvu Hyaluronate (Viscosup) injection 20 mgStart: 09-08-2024 End: 29-62-4184Nsubra Hyaluronate (Viscosup) injection 20 mgStart: 09-08-2024 End: 00-98-986516 mg, Intra-articular, Once, On 09/08/24 at 1045, For 1 dose Start: 09-08-2024 End: 78-16-961666 mg, Intra-articular, Once, On Fri09/08/24 at 1045, For 1 dose Start: 09-08-2024 End: 57-49-9149Rbmfun Hyaluronate (Viscosup) injection 20 mgStart: 09-08-2024 End: 00-45-6114Eswigb Hyaluronate (Viscosup) injection 20 mgStart: 09-08-2024 End: 98-67-444473 mg, Intra-articular, Once, On 09/08/24 at 1045, For 1 dose Start: 09-08-2024 End: 43-14-391299 mg, Intra-articular, Once, On 09/08/24 at 1045, For 1 dose hydrocortisone acetate 25 mg rectal suppository (20 sources)CorticosteroidStart: 07-30-2023 End: 12-36-6109ohvjnvtcnywnhq (Anusol-HC) 25 MG suppository Indications: Hemorrhoids, unspecified hemorrhoid type Insert 1 suppository (25 mg) into the rectum 4 (four) times a day as needed for hemorrhoids 30 suppository 1 07/30/2023 07/29/2024 ActiveStart: 12-48-9185jqxfpkxeliletu (Anusol-HC) 2.5 % rectal cream Indications: Hemorrhoids, unspecified hemorrhoid typeInsert into the rectum 4 (four) times a day as needed for hemorrhoids 28 g 3 07/18/2023 Activeibuprofen 800 mg oral tablet (20 sources)Nonsteroidal Anti-inflammatory DrugStart: 36-80-3636oopl 1 tablet by mouth every eight hoursibuprofen 800 MG tablet Indications: Arthritis of lumbar spine Take 1 tablet (800 mg) by mouth every 8 (eight) hours 270 tablet 3 01/12/2024 ActiveStart: 77-33-5654vtcecbuvi 800 MG tablet every 8 (eight) hours. 0 01/19/2020 Activelevothyroxine sodium 0.1 mg oral tablet (20 sources)l-ThyroxineStart: 71-93-0255apld 1 tablet by mouth before mealtime levothyroxine (Synthroid, Levoxyl) 100 MCG tablet Indications: Postoperative hypothyroidism Take 1 tablet (100 mcg) by mouth in the morning. Take before meals. 90 tablet 3 12/27/2024 ActiveSynthroid Activeliothyronine sodium 0.005 mg oral tablet (20 sources)l-TriiodothyronineStart: 12-10-2021 End: 42-12-5342dmap 1 tablet by mouth once dailyliothyronine (Cytomel) 5 MCG tablet Indications: Postoperative hypothyroidism Take 1 tablet (5 mcg)by mouth Daily 90 tablet 3 08/24/2024 ActiveStart: 91-69-2412iqwn 10 ug by mouth once dailyLiothyronine Active 10 MCG PO Daily December 10, 2021 12:00amCytomel Active lisinopril 10 mg oral tablet (20 sources)Angiotensin Converting Enzyme InhibitorStart: 12-10-2021 End: 35-27-2192heye 1 tablet by mouth once dailylisinopril 10 MG tablet Indications: Primary hypertension Take 1 tablet (10 mg) by mouth Daily 90 tablet 3 08/24/2024 Activemagnesium oxide 400 mg oral tablet (13 sources)Start: 37-89-5548ooze 1 tablet by mouth twice dailytake 1 capsule by mouth once dailyMagnesium 500 MG capsule Take 500 mg by mouth 1 (one) time each day at the same time. 0 ActivemetFORMIN hydrochloride 500 mg oral tablet (20 sources)BiguanideStart: 63-34-4209ttxo 1 tablet by mouth in the morning metFORMIN (Glucophage) 500 MG tablet Indications: Type 2 diabetes mellitus with diabetic neuropathic arthropathy, without long-term current use of insulin (HCC) Take 1 tablet (500 mg) by mouth in themorning and 1 tablet (500 mg) in the evening. Take with meals. 180 tablet 2 11/22/2024 ActiveStart: 27-69-4055kcdo 1 tablet by mouth twice dailyMetformin 500 mg tablet Active 500 MG PO Twice daily December 10, 2021 12:00ammethocarbamol 750 mg oral tablet (4 sources)Muscle RelaxantStart: 11-60-3212kkxt 1 tablet by mouth twice daily Methocarbamol 750 MG 1 tablet Orally up to twice a day for 7 days Feb, ActiveMultivitamin (Daily Multi-Vitamin) tablet (7 sources)Start: 11-10-8306mizk 1 tablet by mouth once daily in the morning Start: 26-62-7674prfi 1 tablet by mouth once daily in the morningMultivitamin (Daily Multi-Vitamin) tablet Active 1 TAB PO Every morning October 04, 2024 12:00amnaproxen sodium 220 mg oral tablet (4 sources)Nonsteroidal Anti-inflammatory Drugtake 1 tablet by mouth every twelve hours at mealtime as neededAleve 220 MG 1 tablet with food or milk as needed Orally every 12 hrs ActiveoxyCODONE hydrochloride 5 mg oral tablet (6 sources)Opioid AgonistStart: 02-10-2024 End: 48-68-2230orxNIPZRO (Roxicodone) 5 MG immediate release tablet Take by mouth 02/10/2024 12/23/2024 Discontinued (Therapy completed)pantoprazole 40 mg delayed release oral tablet (20 sources)Proton Pump InhibitorStart: 07-20-2024 End: 76-60-7075azez 1 tablet by mouth before mealtimepantoprazole (ProtoNix) 40 MG EC tablet Indications: Gastroesophageal reflux disease, unspecified whether esophagitis present Take 1 tablet (40 mg) by mouth in the morning. Take before meals. Do not crush, chew, or split.. 90 tablet 3 08/24/2024 ActiveStart: 81-97-3370kjqy 1 tablet by mouth before mealtimepantoprazole (Protonix) 40 MG EC tablet Indications: Gastroesophageal reflux disease, unspecified whether esophagitis present Take 1 tablet (40 mg) by mouth in the morning. Take before meals. 90 tablet 3 08/11/2023 ActivePantoprazole Sodium 40 MG Oral for 90 Days ActiveSemaglutide (7 sources)Start: 51-00-9418eejfcn 1 mg by subcutaneous injection every week Start: 98-73-0795pdvofy 1 mg by subcutaneous injection every weekSemaglutide (Ozempic) 1 mg/dose (4 mg/3 mL) pen injector Active 1 MG SUBCUT every week October 04, 2024 12:00amsemaglutide (Ozempic, 1 MG/DOSE,) 4 MG/3ML solution pen-injector (20 sources)Start: 03-90-3417kqbakwdmtur (Ozempic, 1 MG/DOSE,) 4 MG/3ML solution pen-injector 06/21/2022 ActiveStart: 66-30-6518lhglru 1 mg by subcutaneous injection every weeksemaglutide (Ozempic, 1 MG/DOSE,) 4 MG/3ML solution pen- injector as directed Subcutaneous once weekly for 30 days 06/21/2022 Active Start: 67-06-2485otbqyq 1 mg by subcutaneous injection every weeksemaglutide (Ozempic, 1 MG/DOSE,) 4 MG/3ML solution pen-injector as directed Subcutaneous once weekly for 30 days 0 06/21/2022 ActivetraZODone hydrochloride 50 mg oral tablet (20 sources)Serotonin Reuptake InhibitorStart: 40-25-4958zcsc 1 tablet by mouth at bedtimetraZODone (Desyrel) 50 MG tablet Indications: Current severe episode of major depressive disorder without psychotic features without prior episode (HCC) Take 1 tablet (50 mg) by mouth at bedtime 90 tablet 3 11/29/2024 Active Start: 08-11-2023 End: 01-19-1011ihtELTihj (Desyrel) 50 MG tablet Indications: Current severe episode of major depressive disorder without psychotic features without prior episode (CMS/HCC) TAKE 1 TABLET AT BEDTIME 90 tablet 3 01/26/2024 Active traZODone HCl 50 MG Oral for 90 Days Activetriamcinolone acetonide 1 mg/ml topical cream (6 sources)CorticosteroidStart: 27-05-3504oyrsxrcmdoaba (Kenalog) 0.1 % cream Indications: Rash and other nonspecific skin eruption Apply 0.5grams to knees BID prn for itching/90 days. Do not use on the face, neck, armpits or groin. 80 g 3 12/17/2024 ActivevalACYclovir 1000 mg oral tablet (20 sources)Herpesvirus Nucleoside Analog DNA Polymerase Inhibitor, Herpes Simplex Virus Nucleoside Analog DNA Polymerase Inhibitor, Herpes Zoster Virus Nucleoside Analog DNA Polymerase InhibitorStart: 08-26-2024 End: 17-32-6967bpkIWFzgvewl (Valtrex) 1 g tablet Daily as needed 08/26/2024 ActiveStart: 05-80-1209ctjFCGobipre (Valtrex) 1 g tablet take 2 tablets, repeat in 12 hours Orally 2 times for 2 days 2020 Doiqpe30 hr venlafaxine 150 mg extended release oral capsule (20 sources)Serotonin and Norepinephrine Reuptake InhibitorStart: 17-04-5385reqp 1 capsule by mouth once dailyvenlafaxine XR (Effexor XR) 75 MG 24 hr capsule Indications: Major depressive disorder, single episode, severe without psychotic features (HCC) Take 1 capsule (75 mg) by mouth Daily 90 capsule 3 11/24/2024 ActiveStart: 20-44-1471rfrc 1 capsule by mouth once dailyvenlafaxine XR (Effexor XR) 75 MG 24 hr capsule Indications: Major depressive disorder, single episode, severe without psychotic features (HCC) (CMS/HCC) Take 1 capsule (75 mg) by mouth Daily Take with food. Take with 150 mg capsule to = 225 mg daily 90 capsule 3 08/26/2024 ActiveStart: 10-28-0417brmg 1 tablet by mouth every twenty- four hours at mealtimevenlafaxine XR (Effexor XR) 225 MG 24 hr tablet Indications: Major depressive disorder, single episode, severe without psychotic features (HCC) (CMS/HCC) Take 1 tablet (225 mg) by mouth in the morning. Take with meals. Do not crush, chew, or split.. 90 tablet 2 08/24/2024 ActiveStart: 97-89-2660repq 1 tablet by mouth every twenty-four hours at mealtimevenlafaxine XR (Effexor XR) 225 MG 24 hr tablet Indications: Major depressive disorder, single episode, severe without psychotic features (HCC) (CMS/HCC) Take 1 tablet (225 mg) by mouth in the morning. Take with meals. Do not crush, chew, or split.. 90 tablet 2 08/24/2024 ActiveStart: 07-20-2024 End: 12-95-9951abqxoaiwlog XR (Effexor XR) 150 MG 24 hr capsule Indications: Anxiety TAKE 1 CAPSULE IN THE MORNING. DO NOT CRUSH OR CHEW 90 capsule 3 07/20/2024 08/24/2024 Discontinued (Ineffective)Start: 46-06-8890pfwb 1 capsule by mouth every twenty-four hours in the morningvenlafaxine XR (Effexor XR) 150 MG 24 hr capsule Indications: Anxiety Take 1 capsule (150 mg) by mouth in the morning. Do not crush or chew.. 90 capsule 3 08/11/2023 ActiveStart: 12-10-2021 End: 13-36-9557rakf 1 capsule by mouth once dailyvenlafaxine XR (Effexor XR) 150 MG 24 hr capsule Indications: Major depressive disorder, single episode, severe without psychotic features (HCC) Take 1 capsule (150 mg) by mouth Daily 90 capsule 3 11/24/2024 ActiveVit G-L-V3-Flkp-B-Hler-Quercet (Immune Essentials Daily) 750 mcg-150 mg- 31.25 mcg capsule (7 sources)Start: 82-65-2855eyvm 1 capsule by mouth once daily in the morning Start: 00-67-3631ezsr 1 capsule by mouth once daily in the morningVit B-T-G5-Sbkm-F-Avuu-Quercet (Immune Essentials Daily) 750 mcg-150 mg- 31.25 mcg capsule Active 1CAP PO Every morning October 04, 2024 12:00amVITAMIN D-VITAMIN K PO (6 sources)VITAMIN D-VITAMIN K PO as directed Orally 0 Active Completed/Discontinued Medications MedicationDrug Class(es)DatesSig (Normalized)Sig (Original)acetaminophen 325 mg / HYDROcodone bitartrate 5 mg oral tablet (12 sources)Opioid AgonistStart: 10-18-2024 End: 84-75-0434sown 1 tablet by mouth every four to six hours as needed for pain Hydrocodone-Acetaminophen 5-325 mg tablet Discontinued 1 - 2 TAB PO EVERY 4-6 HOURS as needed for pain 50 October 18, 2024 November 24, 2024 2:49pmamitriptyline hydrochloride 25 mg oral tablet (4 sources)Tricyclic Antidepressanttake 1 tablet by mouth every twenty-four hoursAmitriptyline HCl 25 MG 1 tablet Orally Once a day Not-Taking/PRN cefTRIAXone (4 sources)Cephalosporin AntibacterialStart: 90-78-4181Khvnbace 500 mg Oct, 1000 mgdoxycycline hyclate 100 mg oral tablet (12 sources)Tetracycline-class DrugStart: 10-18-2024 End: 99-58-3296nkxj 1 tablet by mouth twice dailyDoxycycline Hyclate 100 mg tablet Discontinued 100 MG PO Twice daily 10 October 18, 2024 12:00am November 24, 2024 2:49pm Problems Active Problems Problem ClassificationProblemDateDocumented DateEpisodic/ChronicAcquired foot deformities (4 sources)Hammer toe; Translations: [Other hammer toe(s) (acquired), right foot]75-30-9643PyrivqaNfitvr (20 sources)Mild intermittent asthma; Translations: [Mild intermittent asthma, uncomplicated]Onset: 779584-10-3948WzcclwiGvxqkux ulcer of skin (4 sources)Pressure ulcer of buttock stage 2; Translations: [Pressure ulcer of unspecified buttock, stage 2]69-53-5711SippljbIxhmpczuraszt of surgical procedures or medical care (20 sources)Postprocedural hypothyroidism; Translations: [Postoperative hypothyroidism]Onset: 07-16-2017 Resolved: 71-71-2302EjniverPxcoubekykhmv of surgical procedures or medical care (2 sources)Drug therapy finding; Translations: [Unspecified adverse effect of drug or medicament, initial encounter]10-72-5047NursnbmkVnldlbausc and other anemia (20 sources)Iron deficiency anemia due to blood loss; Translations: [Iron deficiency anemia secondary to blood loss (chronic)]Onset: 01-13-2023 Resolved: 987276-77-5818LabkeufLpjhcxct mellitus with complications (20 sources)Type 2 diabetes mellitus with other specified complication; Translations: [Arthropathy due to type 2 diabetes mellitus]Onset: 02-12-2022 Resolved: 818783-94-5383EbhmbnfCptwzfrp of mouth; excluding dental (1 source)Dry mouth, unspecifiedEpisodicDiverticulosis and diverticulitis (20 sources)Diverticulosis of colon; Translations: [Diverticulosis of large intestine without perforation or abscess without bleeding]Onset: 09-04-2020 Resolved: 443722-38-1233YckphfkDwylanqutr disorders (20 sources)Gastroesophageal reflux disease; Translations: [Gastro-esophageal reflux disease without esophagitis]Onset: 401614-46-3153XptqkcnGmcprmpff hypertension (20 sources)Essential hypertension; Translations: [Essential (primary) hypertension]Onset: 389345-61-4747AlpnzqoYwhz wounds of extremities (6 sources)Amputated finger; Translations: [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, initial encounter]Onset: 092317-54-7812DqeatijBieohevsudiooe (20 sources)Bilateral primary osteoarthritis of knee; Translations: [Osteoarthritis]Onset: 02-02-2020 Resolved: 310098-29-4676XzptrnzWjecqwszwdbj (20 sources)Age-related osteoporosis without current pathological fracture; Translations: [Senile osteoporosis]Onset: 239111-24-5884EjncktxWgtea acquired deformities (20 sources)Scoliosis deformity of spine; Translations: [Scoliosis, unspecified] Onset: 663904-12-5697CbpkgqyRyesv acquired deformities (11 sources)Flexion contracture; Translations: [Contracture, right hand] 03-50-7198NalwkwqOnwxi acquired deformities (14 sources)Contracture, right hand; Translations: [Contracture of joint, hand] Onset: 774528-61-8937TebsksrRzhtl and unspecified benign neoplasm (2 sources)Melanocytic nevus of trunk; Translations: [Melanocytic nevi of trunk] 46-35-0823XgsvpuoqCsruo bone disease and musculoskeletal deformities (4 sources)Idiopathic scoliosis of thoracic and lumbar spine; Translations: [Other idiopathic scoliosis, thoracolumbar region]36-70-8233KcdeiflRrcvm connective tissue disease (3 sources)Supraspinatus tear; Translations: [Unspecified rotator cuff tear or rupture of right shoulder, not specified as traumatic]EpisodicOther connective tissue disease (2 sources)Unspecified rotator cuff tear or rupture of right shoulder, not specified as traumaticOnset: 03-11-2022 Resolved: 45-70-0611AmpxuyjpLhbcl connective tissue disease (7 sources)Hand pain; Translations: [Pain in right hand]69-89-1088SbbfpclxXxhar connective tissue disease (2 sources)Pain in right hand; Translations: [Pain in right hand]09-21-2024 EpisodicOther ear and sense organ disorders (2 sources)Acute eczematoid otitis externa; Translations: [Acute eczematoid otitis externa, bilateral]14-99-0572CoqvhqlxDqjyf gastrointestinal disorders (20 sources)Irritable bowel syndrome characterized by constipation; Translations: [Irritable bowel syndrome with constipation]Onset: 12-26-2022 12-97-1963UytusjwJzlrw inflammatory condition of skin (2 sources)Lichen planopilaris; 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]12-16-2024 EpisodicOther nervous system disorders (4 sources)Neuropathy; Translations: [Polyneuropathy, unspecified]03-18-2024 ChronicOther nervous system disorders (6 sources)Pain in limb; Translations: [Other acute postprocedural pain] 83-13-4739VukhuvntWmece non-epithelial cancer of skin (2 sources)History of squamous cell carcinoma of skin; Translations: [Personal history of other malignant neoplasm of skin]14-86-4965TlakxzgfTalhw non- traumatic joint disorders (4 sources)Derangement of right shoulder joint; Translations: [Other specific joint derangements of right shoulder, not elsewhere classified]ChronicOther non- traumatic joint disorders (1 source)Other specific joint derangements of right shoulder, not elsewhere classifiedOnset: 02-19-2022 Resolved: 75-44-7054LzavhtmJzjvz non-traumatic joint disorders (4 sources)Pain in right shoulder; Translations: [PAIN IN RIGHT SHOULDER]Onset: 12-62-7623UeoeiotfCszch non-traumatic joint disorders (3 sources)Pain in left knee; Translations: [Left knee pain]Onset: 03-02-2025 46-56-4842TdbcvploEpkxb non-traumatic joint disorders (2 sources)Hip pain; Translations: [Pain in left hip]90-95-7462BqpircgcWjsaq non-traumatic joint disorders (1 source)Pain in left hip; Translations: [Pain in left hip]Onset: 03-02-2025 EpisodicOther nutritional; endocrine; and metabolic disorders (1 source)Body mass index (BMI) 26.0-26.9, adultEpisodicOther skin disorders (2 sources)Seborrheic keratosis; Translations: [Other seborrheic keratosis] 51-21-2463HchahemqLgmqb skin disorders (2 sources)Lentiginosis; Translations: [Other melanin hyperpigmentation] 83-13-5513TyhofnakNjzuv skin disorders (2 sources)Actinic keratosis; Translations: [Actinic keratosis]12-16-2024 EpisodicOther skin disorders (2 sources)Eruption; Translations: [Rash and other nonspecific skin eruption] 17-79-2772YqnzwdxxYblxe upper respiratory infections (2 sources)Acute pansinusitis; Translations: [Acute pansinusitis, unspecified] 42-09-8527YyhrrrjzPabhuzpz codes; unclassified (11 sources)Obstructive sleep apnea (adult) (pediatric); Translations: [Obstructive sleep apnea (adult)(pediatric)]Onset: 35-25-8533DuwslurOmthjfuk codes; unclassified (20 sources)Obstructive sleep apnea syndrome; Translations: [Obstructive sleep apnea (adult) (pediatric)]Onset: 682763-21-3244FibmkrmAkumifwh codes; unclassified (2 sources)Postmenopausal state; Translations: [Asymptomatic menopausal state] 07-58-2514EfxuavuxOweliqmr codes; unclassified (7 sources)Postprocedural state finding; Translations: [Other specified postprocedural states]24-72-4483ZfyyobkvEfhkrrvr codes; unclassified (6 sources)Other specified postprocedural states; Translations: [Other postprocedural status]49-01-3874IqkgyoagLlqzozrohil; intervertebral disc disorders; other back problems (10 sources)Acute low back pain; Translations: [Acute left-sided low back pain without sciatica]61-19-9409VtlhpxgvXbmlgbe and strains (2 sources)Strain of other muscles, fascia and tendons at shoulder and upper arm level, right arm, initial encounterOnset: 03-11-2022 Resolved: 86-87-9730InyvyxtyUqppcqiugyc injury; contusion (7 sources)Contusion of right shoulder, initial encounter; Translations: [Contusion of right hip, initial encounter]Onset: 91-11-7027Lfzqdxrg Past or Other Problems Problem ClassificationProblemDateDocumented DateEpisodic/ChronicAnxiety disorders (20 sources)Anxiety; Translations: [Anxiety disorder, unspecified]Onset: 07-16-2017 Resolved: 045133-76-5129OnoijfeGwzlcrrzw and vision defects (20 sources)Presbyopia; Translations: [Presbyopia]Onset: 06-15-2019 Resolved: 834452-87-4265GrzeerywCeaufh of thyroid (20 sources)Malignant neoplasm of thyroid gland; Translations: [Papillary thyroid carcinoma]Onset: 09-04-2020 Resolved: 90-18-7544TcrmrvcTfxhaq of thyroid (20 sources)History of malignant neoplasm of thyroid; Translations: [Personal history of malignant neoplasm of thyroid]Onset: 09-04-2020 Resolved: 280735-89-8082DoerolaeCzfmdomzyp and other anemia (20 sources)Anemia; Translations: [Anemia, unspecified]Onset: 12-26-2022 Resolved: 450519-65-6768CwbxbdruHgkkzcyb mellitus without complication (20 sources)Type 2 diabetes mellitus without complications; Translations: [Type 2 diabetes mellitus without complication]Onset: 09-15-2020 Resolved: 963551-36-0371PfxfjmgOqtdcognn of lipid metabolism (20 sources)Pure hypercholesterolemia, unspecified; Translations: [Familial hypercholesterolemia]Onset: 06-07-2016 Resolved: 255007-51-3204RksvyubP Codes: Fall (1 source)Fall on same level from slipping, tripping and stumbling without subsequent striking against object, initial encounter; Translations: [FALL SAME LVL SLIP NO STRK OBJ INIT]Onset: 87-16-7204QgflohutVtdsyehp of upper limb (1 source)Fracture of unspecified part of right clavicle, initial encounter for closed fracture; Translations: [FX UNS PRT RT CLAV INITIAL CLOS FX]Onset: 55-18-1248GphcvaxzKhthuxghihp (20 sources)External hemorrhoids; Translations: [Residual hemorrhoidal skin tags]Onset: 12-24-2017 Resolved: 432692-75-3830ZnnwtqwbBqzvo disorders and dislocations; trauma-related (20 sources)Unspecified subluxation of unspecified shoulder joint, initial encounter; Translations: [Dislocation of digit of hand]Onset: 03-11-2022 Resolved: 07-29-7518OshlokssXrrm disorders (20 sources)Severe major depression, single episode, without psychotic features; Translations: [Major depressive disorder, single episode, severe without psychotic features]Onset: 03-20-2023 Resolved: 663954-17-7942YqrljtwPpeq disorders (20 sources)Mood disordersOnset: 07-02-2023 Resolved: 612783-06-0043Iicccgknreu deficiencies (20 sources)Vitamin D deficiency, unspecified; Translations: [Vitamin D deficiency]Onset: 08-03-2018 Resolved: 926042-96-9015ExneionFegl wounds of extremities (4 sources)Unspecified open wound of right middle finger without damage to nail, initial encounter; Translations: [Unspecified open wound of unspecified finger without damage to nail, subsequent encounter]Onset: 85-82-4036XjbwtencKcaaa aftercare (1 source)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; Translations: [OTH 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 CURRENT DRUG THERAPY]Onset: 33-55-7397XbzqpmxvZqkkw aftercare (1 source)residential (current) use of oral hypoglycemic drugs; Translations: [PENITENTIARY USE ORAL HYPOGLYCEMIC DX]Onset: 35-11-7836HpfjxyrnEjfdl and ill- defined heart disease (20 sources)Left ventricular hypertrophy; Translations: [Cardiomegaly]Onset: 01-13-2023 Resolved: 805715-78-2195CllsjttAproy and unspecified benign neoplasm (20 sources)Benign neoplasm of colon; Translations: [Benign neoplasm of colon, unspecified]Onset: 811373-59-2825WodkdolyIrvck connective tissue disease (2 sources)Myalgia, unspecified site; Translations: [Myalgia, unspecified site] Onset: 19-41-4040AfktsllvZtqab connective tissue disease (1 source)Pain in unspecified limb; Translations: [Pain in unspecified limb] Onset: 31-79-7319NekawlwaBcogt connective tissue disease (1 source)Pain in right hand; Translations: [Pain in right hand]Onset: 20-18-9555IwgzruxbYzzpd fractures (2 sources)Displaced fracture of lateral end of right clavicle, subsequent encounter for fracture with routinehealingOnset: 02-19-2022 Resolved: 57-19-1620HptfeoxvEdugo gastrointestinal disorders (6 sources)Constipation; Translations: [Constipation, unspecified]Onset: 338361-60-4457NdqzmyjeAyhyr injuries and conditions due to external causes (1 source)Other specified injuries of head, initial encounter; Translations: [OTH SPEC INJURIES HEAD INITIAL ENC]Onset: 82-01-8468NzwunaluBhzzv injuries and conditions due to external causes (20 sources)Injury of right knee; Translations: [Unspecified injury of right lower leg, initial encounter]Onset: 12-26-2022 Resolved: 463630-85-3472FvcqwaqvNdajp injuries and conditions due to external causes (20 sources)Injury of left knee; Translations: [Unspecified injury of left lower leg, initial encounter]Onset: 12-30-2022 Resolved: 916521-94-9871FrgfpeytMwamw nervous system disorders (1 source)Other acute postprocedural pain; Translations: [Other acute postprocedural pain]Onset: 42-95-3018ZvxjjmmtIylph nutritional; endocrine; and metabolic disorders (20 sources)Obesity caused by energy imbalance; Translations: [Other obesity due to excess calories]Onset: 09-04-2020 Resolved: 080842-48-1843NncdgnjRrmao screening for suspected conditions (not mental disorders or infectious disease) (20 sources)Patient encounter status; Translations: [Encounter for screening for malignant neoplasm of colon]Onset: 07-02-2023 Resolved: 189607-43-2733BcoxxxrhHccjy skin disorders (4 sources)Callosity; Translations: [Corns and callosities]62-39-5275Vlmqbyrd Residual codes; unclassified (20 sources)Unspecified donor, other blood; Translations: [Other blood donors] Onset: 02-26-2023 Resolved: 233650-71-5701YvtbxredGbjawripgtu; intervertebral disc disorders; other back problems (20 sources)Lumbar arthritis; Translations: [Spondylosis without myelopathy or radiculopathy, lumbar region]Onset: 12-26-2022 Resolved: 526801-46-4432CdvngxcRligm infection (20 sources)Postherpetic neuralgia; Translations: [Other postherpetic nervous system involvement]Onset: 930551-45-4447Awclawdg Results Test NameValueInterpretationReference RangeFacilityX-ray reportOrdered By: Donald Moreno on 12-89-9663Tuade reportSUMMA HEALTH [facility] [address] [place] [address] XRay Report Signed Patient: Mirta Welsh MR#: [id number] : 1950 Acct:[id number] Age/Sex: 74 / F ADM Date: 5 Loc: [facility] [place] Room: Type: [facility] Attending Dr: Davi Naranjo II, MD Copies to: Davi Naranjo MD~ Ordering Provider: Davi Naranjo MD Date of Service: 03/02/25 XR/XR hip LT min 2V(w/wo pelvis)*: M25.552 - Pain in left hip ([id number]) XR/XR knee LT 4V*: M25.562 - Pain in left knee LEFT HIP - 2 views: , Left knee 4 views CLINICAL HISTORY: Left hip and left knee pain for 10 years. COMPARISON: None FINDINGS: Mild degenerative changes involving the hips with joint space narrowing. Additional degenerative changes seen involving the visualized lower lumbar spine, SI joints and pubic symphysis. Left knee there is mild degenerative changes with medial weightbearing joint space narrowing. Smalljoint effusion. No acute bony process. XR/XR hip LT min 2V(w/wo pelvis)* IMPRESSION: MILD DEGENERATIVE CHANGES OF THE HIPS WITHOUT ACUTE BONY PROCESS. MODERATE DEGENERATIVE CHANGES INVOLVING THE LEFT KNEE WITHOUT ACUTE BONY PROCESS.. Impression dictated by: Donald Moreno Jr., D.O. 03/02/2025 9:12 PM Dictation Location: RADIO-PC-18 Transcribed By: PWS 03/02/252111 Dictated By: Donald Moreno Jr, DO 03/02/252110 Signed By: 03/02/252111 [facility] HospitalXR [facility] 4V*on 94-14-7120XB knee LT 4V* [facility] [address] [place] [address] XRay Report Signed Patient: Mirta Welsh MR#: [id number] : 1950 Acct:[id number] Age/Sex: 74 / F ADM Date: 03/02/25 Loc: [facility] [place] Room: Type: [facility] Attending Dr: Davi Naranjo II, MD Copies to: Davi Naranjo MD Ordering Provider: Davi Naranjo MD Date of Service: 03/02/25 XR/XR hip LT min 2V(w/wo pelvis)*: M25.552 - Pain in left hip ([id number]) XR/XR knee LT 4V*: M25.562 - Pain in left knee LEFT HIP - 2 views: , Left knee 4 views CLINICAL HISTORY: Left hip and left knee pain for 10 years. COMPARISON: None FINDINGS: Mild degenerative changes involving the hips with joint space narrowing. Additional degenerative changes seen involving the visualized lower lumbar spine, SI joints and pubic symphysis. Left knee there is mild degenerative changes with medial weightbearing joint space narrowing. Small joint effusion. No acute bony process. XR/XR hip LT min 2V(w/wo pelvis)* IMPRESSION: MILD DEGENERATIVE CHANGES OF THE HIPS WITHOUT ACUTE BONY PROCESS. MODERATE DEGENERATIVE CHANGES INVOLVING THE LEFT KNEE WITHOUT ACUTE BONY PROCESS.. Impression dictated by: Vito Hwang Jr.OGilberto 03/02/2025 9:12 PM Dictation Location: RADIO-PC-18 Transcribed By: [facility] 03/02/252111 Dictated By: Donald Moreno Jr, DO 03/02/252110 Signed By: 03/02/252111[facility] Physician GroupMLR HEMOGLOBIN A1Con 12-20-2024 Glucose [Mass/Vol]126 mg/dLNOColumbia Regional HospitalCbiuytdxamZtB9h (Bld) [Mass fraction]6 %4.5 - 6.2 %NOMS HealthcareComment on above:ADA RECOMMENDED LIMIT 4.0 - 6.0 ADA THERAPEUTIC TARGET < 7.0 ACTION SUGGESTED > 7.0 CLINISYNCNOColumbia Regional HospitalTBH MICROALB CREAT RATIO RANDOMon 80-23-4167RKWULDHSOJ URINE AFEMWW96.86 mg/dL20.00 - 300.00 mg/dLNOColumbia Regional HospitalMICROALBUMIN URINE RANDOM<1.3NINF - 30.0 mg/dLNOColumbia Regional HospitalCLINISYNCNOMS HealthcareNo Panel Informationon 82-15-7923KRJB HealthcareBI MAMMOGRAM SCREENING TOMOSYNTHESIS BILATERALon 80-20-7858VC MAMMOGRAM SCREENING TOMOSYNTHESIS BILATERALThis is a summary report. The complete report is available in the patient's medical record. If you cannot access the medical record, please contact the sending organization for a detailed fax or copy. Examination: BI MAMMOGRAM SCREENING TOMOSYNTHESIS BILATERAL Clinical [...] Screening Mammogram ELECTRONICALLY SIGNED BY: Amrik Trinidad M.D.NormalNot AvailableDEXA BONE DENSITY on 50-26-4128BJSD BONE DENSITYExamination: DEXA BONE DENSITY Clinical History: Asymptomatic menopausal [...] prior exam. ELECTRONICALLY SIGNED BY: Amrik Trinidad M.D.NormalNot AvailableGlucose Glucometer (dC) [Mass/Vol]Ordered By: Leti Salter on 83-86-6567Mjdwerm [Mass/Vol]Capillary blood glucose measurement by glucometer (mass/volume) [facility] HospitalComment on above:Random Glucose Reference Range is dependent on time and content of last meal. Glucose of more than 200 mg/dL in a nonstressed, ambulatory subject supports the diagnosis of Diabetes Mellitus.Glucose Poct Glucometerson 85-78-7307Avdkoag [Mass/Vol]94 mg/dLNormal The [facility] Physician GroupComment on above:Result Comment: Random Glucose Reference Range is dependent on time and content of last meal. Glucose of more than 200 mg/dL in a nonstressed, ambulatory subject supports the diagnosis of Diabetes Mellitus. PERFORMED BY: [facility] [address] [place] [address] PATHOLOGIST WAGON WINDER YOVANY BHAT M.D.Performed By: #### GLULS #### Point of Care testing ,Cornel 10-18-2024L Specimen: [id number] Received: 10/18/24 Status: YOMI [place] Num: [id number] Spec Type: Surgical Subm Dr: Leti Salter MD Tissues: A DIGIT AMPUTATION (RT LONG FINGER, 3RD METACARP) Procedures: HE/3, Gross/Micro L4, Decalcification Age/ Patient Sex Location Account Attending Physician Mirta Welsh 73/F PR [id number] Leti Salter MD SPEC NUM: [id number] RECD: 10/18/24 STATUS: YOMI JEET NUM: [id number] SUDEEP: 10/18/24 [facility] DR: Leti Salter MD ENTERED: 10/18/[address] [facility] [address]: SPEC TYPE: Surgical DEPT: S ENTERED BY: [id number] RECV BY: [id number] ORDERED: HE/3, Gross/Micro L4, Decalcification ORDERED: HE/3, Gross/Micro L4, Decalcification Pathological Diagnosis Right long finger and third metacarpal, amputation: Skin ulceration. Clinical Information Flexion contracture Gross Description Part A is received in formalin labeled with the patients name, date of , and R long finger and third metacarpal is a digit amputated at the right, third metacarpal bone (4.5 cm proximal to the metacarpal joint), 13.5 cm in length by up to 2.3 cm in diameter. The dorsal distal aspect of the specimen displays a sheet of doss-avila, keratinized nail, 1.4 x 1 x 0.1 cm. The proximal 5 cm of the specimen is received without overlying soft tissue or skin, while the remainder the specimen is covered by doss-avila, wrinkled skin. The distal, as well as proximal metacarpal joints are contracted and rigid. Cassettes: A1 Rigid proximal metacarpal joint, decalcified A2 Rigid distal metacarpal joint, decalcified A3 Tangential sections of proximal skin margin (, , R10-5077 A)TIMUR Specimen: [id number] Received: 10/18/24 Status: MARILYNLucille [place] Num: [id number] Spec Type: Surgical Subm Dr: Leti Salter MD Tissues: A DIGIT AMPUTATION (RT LONG FINGER, 3RD METACARP) Procedures: HE/3, Gross/Micro L4, Decalcification Patient: Mirta Welsh [id number] (Continued) Specimen: [id number] Received: 10/18/24 (Continued) Signed (signature on file) Yovany Bhat MD 10/20/24 1742 Specimen: Received: 10/18/24 Status: YOMI [place] Num: [id number] Spec Type: Surgical Subm Dr: Leti Salter MD Tissues: A DIGIT AMPUTATION (RT LONG FINGER, 3RD METACARP) Procedures: HE/3, Gross/Micro L4, Decalcification Patient: Mirta Welsh [id number] (Continued) Specimen: Received: 10/18/24 (Continued) CPT Codes 99593 Specimen: [id number] Received: 10/18/24 Status: YOMI Henrypreethi Num: [id number] Spec Type: Surgical Subm Dr: Leti Salter MD Tissues: A DIGIT AMPUTATION (RT LONG FINGER, 3RD METACARP) Procedures: ROB/Dru, Gross/Micro L4, Decalcification Patient: Mirta Welsh [id number] (Continued) Signed (signature on file) Yovany Bhat MD 10/20/[address] [place] [address] Physician GroupAlanine aminotransferase [Enzymatic activity/volume] in Serum or PlasmaOrdered By: Leti Salter on 36-89-7480ZCZ [Catalytic activity/Vol]Alanine aminotransferase [Enzymatic activity/volume] in Serum or Plasma7-52[facility] HospitalAlbumin [Mass/volume] in Serum or Plasma by Bromocresol green (BCG) dye binding metho Ordered By: Leti Salter on 88-69-3947Nokqoot BCG dye [Mass/Vol]Albumin [Mass/volume] in Serum or Plasma by Bromocresol green (BCG) dye binding metho 3.5-5.7FDoctors HospitalAlkaline phosphatase [Enzymatic activity/volume] in Serum or PlasmaOrdered By: Leti Salter on 62-26-6127QHL [Catalytic activity/Vol]Alkaline phosphatase [Enzymatic activity/volume] in Serum or Tjwkon88-375SoicuveyoThe Jewish HospitalAspartate aminotransferase [Enzymatic activity/volume] in Serum or PlasmaOrdered By: Leti Salter on 44-56-6461BBR [Catalytic activity/Vol]Aspartate aminotransferase [Enzymatic activity/volume] in Serum or Dadfrf84-68DrmmtyxdgThe Jewish Hospital Basophils Auto (Bld) [#/Vol]Ordered By: Leti Salter on 82-02-9073Mictizwrr (Bld) [#/Vol]Automated basophil count0.0-0.2FDoctors Hospital Basophils/100 WBC Auto (Bld)Ordered By: Leti Salter on 10-04-2024 Basophils/100 WBC (Bld)Automated basophil %.[facility] Bilirubin.total [Mass/volume] in Serum or PlasmaOrdered By: Leti Salter on 55-52-2051Feczashek [Mass/Vol]Bilirubin.total [Mass/volume] in Serum or Plasma 0.3-1.0[facility] HospitalBlood estimated average glucose determination by estimation from glycated hemoglobinOrdered By: Leti Salter on 08-84-2244Lvsyjtu glucose Estimated from glycated hemoglobin (Bld) [Mass/Vol] Glucose mean value [Mass/volume] in Blood Estimated from glycated hemoglobin The Jewish HospitalCMP with reflex to A1Con 90-30-6796Vzzxhtv [Mass/Vol]4.1 g/dLNormal3.5-5.7The [facility] Physician GroupComment on above: Performed By: #### CBC, CMP wRFX A1C, EBS A1C #### [facility] [address] [place] [address] USAAlbumin/Globulin [Mass ratio]2.1 {ratio}NormalThe [facility] Physician GroupComment on above:Performed By: #### CBC, CMP wRFX A1C, EBS A1C #### [facility] [address] [place] [address] USAALP [Catalytic activity/Vol]74 U/OSzsooy79-545Ahl [facility] Physician GroupComment on above:Result Comment: PERFORMED BY: [place] [address] PATHOLOGIST WAGON WINDER YOVANY BHAT M.D.Performed By: #### CBC, CMP wRFX A1C, EBS A1C #### [place] [address] USAALT [Catalytic activity/Vol]31 U/LNormal7-52The [facility] Physician GroupComment on above:Performed By: #### CBC, CMP wRFX A1C, EBS A1C #### [facility] [address] [place] [address] USAAnion gap [Moles/Vol]10.2 mmol/LNormal6.0-15.0The [facility] Physician GroupComment on above:Performed By: #### CBC, CMP wRFX A1C, EBS A1C #### [place] [address] USAAST [Catalytic activity/Vol]23 U/KVbmnym42-20Gmh [facility] Physician GroupComment on above:Performed By: #### CBC, CMP wRFX A1C, EBS A1C #### [facility] [address] [place] [address] USABilirubin [Mass/Vol]0.4 mg/dLNormal0.3-1.0The [facility] Physician GroupComment on above:Performed By: #### CBC, CMP wRFX A1C, EBS A1C #### [facility] [address] [place] [address] USACalcium [Mass/Vol]9.0 mg/dLNormal8.6-10.3The [facility] Physician GroupComment on above:Performed By: #### CBC, CMP wRFX A1C, EBS A1C #### [facility] [address] [place] [address] USAChloride [Moles/Vol]102 mmol/TJhjvip77-369Rmy [facility] Physician GroupComment on above:Performed By: #### CBC, CMP wRFX A1C, EBS A1C #### [facility] [address] [place] [address] USACO2 [Moles/Vol]30.0 mmol/GGlcech57.0-31.0The [facility] Physician GroupComment on above:Performed By: #### CBC, CMP wRFX A1C, EBS A1C #### [place] [address] USACreatinine [Mass/Vol]0.62 mg/dLNormal0.60-1.20The [facility] Physician GroupComment on above:Performed By: #### CBC, CMP wRFX A1C, EBS A1C #### [place] [address] USAGFR/1.73 sq M.predicted MDRD (S/P/Bld) [Vol rate/Area] mL/min/{1.73_m2}NormalThe [facility] Physician GroupComment on above:Performed By: #### CBC, CMP wRFX A1C, EBS A1C #### [facility] [address] [place] [address] USAGlobulin (S) [Mass/Vol]2.0 g/dLNormalThe [facility] Physician GroupComment on above:Performed By: #### CBC, CMP wRFX A1C, EBS A1C #### [facility] [address] [place] [address] USAGlucose [Mass/Vol]121 mg/eWSyil03-661Ora [facility] Physician GroupComment on above:Result Comment: ADA recommended reference range Performed By: #### CBC, CMP wRFX A1C, EBS A1C #### [facility] [address] [place] [address] USAPotassium [Moles/Vol]4.2 mmol/LNormal3.5-5.1The [facility] Physician GroupComment on above:Performed By: #### CBC, CMP wRFX A1C, EBS A1C #### [facility] [address] [place] [address] USAProtein [Mass/Vol]6.1 g/dLLow6.4-8.9The [facility] Physician GroupComment on above:Performed By: #### CBC, CMP wRFX A1C, EBS A1C #### [facility] [address] [place] [address] USASodium [Moles/Vol]138 mmol/ZQhsgpu064-704Qzd [facility] Physician GroupComment on above:Performed By: #### CBC, CMP wRFX A1C, EBS A1C #### [facility] [address] [place] [address] USAUrea nitrogen [Mass/Vol]10 mg/dLNormal7-25The [facility] Physician GroupComment on above:Performed By: #### CBC, CMP wRFX A1C, EBS A1C #### [facility] [address] [place] [address] USACalcium [Mass/volume] in Serum or PlasmaOrdered By: Leti Salter on 87-08-0809Cdyxzbj [Mass/Vol]Calcium [Mass/volume] in Serum or Plasma8.6-10.3FDoctors HospitalCarbon dioxide, total [Moles/volume] in Serum or PlasmaOrdered By: Leti Salter on 71-37-2734PZ6 [Moles/Vol]Carbon dioxide, total [Moles/volume] in Serum or Qxlxiu74.0-31.0 The Jewish HospitalChloride [Moles/volume] in Serum or Plasma Ordered By: Leti Salter on 65-60-5000Rxccoxdh [Moles/Vol]Chloride [Moles/volume] in Serum or Agyhis20-440GdahinnxoThe Jewish HospitalComplete Blood Count Auto Diffon 26-24-5827Chzovsvzc (Bld) [#/Vol]0.0 10*3/uLNormal 0.0-0.2The [facility] Physician GroupComment on above:Result Comment: PERFORMED BY: [place] [address] PATHOLOGIST WAGON WINDER YOVANY BHAT M.D.Performed By: #### CBC, CMP wRFX A1C, EBS A1C #### [place] [address] USABasophils/100 WBC (Bld)0.5 %Normal.The [facility] Physician GroupComment on above:Performed By: #### CBC, CMP wRFX A1C, EBS A1C #### [place] [address] USAEosinophils (Bld) [#/Vol]0.5 10*3/uLHigh0.0-0.45The [facility] Physician GroupComment on above:Performed By: #### CBC, CMP wRFX A1C, EBS A1C #### [place] [address] USAEosinophils/100 WBC (Bld)7.1 %Normal.The [facility] Physician GroupComment on above:Performed By: #### CBC, CMP wRFX A1C, EBS A1C #### [place] [address] USAErythrocyte distribution width (RBC) [Ratio]13.9 %Normal 11.9-15.3The [facility] Physician GroupComment on above:Performed By: #### CBC, CMP wRFX A1C, EBS A1C #### [place] [address] USAHematocrit (Bld) [Volume fraction]40.2 %Niaitb86.0-46.4The [facility] Physician GroupComment on above:Performed By: #### CBC, CMP wRFX A1C, EBS A1C #### [place] [address] USAHemoglobin (Bld) [Mass/Vol]13.5 g/gVIcqcik20.8-15.4The [facility] Physician GroupComment on above:Performed By: #### CBC, CMP wRFX A1C, EBS A1C #### [place] [address] USALymphocytes (Bld) [#/Vol]2.4 10*3/uLNormal1.00-4.8The [facility] Physician GroupComment on above:Performed By: #### CBC, CMP wRFX A1C, EBS A1C #### [facility] [address] [place] [address] USALymphocytes/100 WBC (Bld)32.8 %Normal.The [facility] Physician GroupComment on above:Performed By: #### CBC, CMP wRFX A1C, EBS A1C #### [address] (RBC) [Entitic mass]31.3 wnLfsbny50.7-34.3The [facility] Physician GroupComment on above:Performed By: #### CBC, CMP wRFX A1C, EBS A1C #### [address] (RBC) [Entitic vol]93.0 mDJbliyj24-767Wuf [facility] Physician GroupComment on above:Performed By: #### CBC, CMP wRFX A1C, EBS A1C #### [place] [address] USAMean Corpuscular HGB Conc33.6 g/mPPfbxzj69.0-35.0The [facility] Physician GroupComment on above:Performed By: #### CBC, CMP wRFX A1C, EBS A1C #### [place] [address] USAMonocytes (Bld) [#/Vol]0.5 10*3/uLNormal0.0-0.8The [facility] Physician GroupComment on above:Performed By: #### CBC, CMP wRFX A1C, EBS A1C #### [place] [address] USAMonocytes/100 WBC (Bld)6.6 %Normal.The [facility] Physician GroupComment on above:Performed By: #### CBC, CMP wRFX A1C, EBS A1C #### [place] [address] USANeutrophils (Bld) [#/Vol]3.9 10*3/uLNormal1.8-7.7The [facility] Physician GroupComment on above:Performed By: #### CBC, CMP wRFX A1C, EBS A1C #### [facility] [address] [place] [address] USANeutrophils/100 WBC (Bld)53.0 %Normal.The [facility] Physician GroupComment on above:Performed By: #### CBC, CMP wRFX A1C, EBS A1C #### [facility] [address] [place] [address] USANRBC%0.0 /100{WBC}Normal0-0.5The [facility] Physician Group Comment on above:Performed By: #### CBC, CMP wRFX A1C, EBS A1C #### [facility] [address] [place] [address] USAPlatelet mean volume (Bld) [Entitic vol]7.2 fLNormal 6.3-10.7The [facility] Physician GroupComment on above:Performed By: #### CBC, CMP wRFX A1C, EBS A1C #### [facility] [address] [place] [address] USAPlatelets (Bld) [#/Vol]306 10*3/zAGwkgwz283-777Qkh [facility] Physician GroupComment on above:Performed By: #### CBC, CMP wRFX A1C, EBS A1C #### [facility] [address] [place] [address] USARBC (Bld) [#/Vol]4.32 10*6/uLNormal3.60-5.00The [facility] Physician GroupComment on above:Performed By: #### CBC, CMP wRFX A1C, EBS A1C #### [facility] [address] [place] [address] USAWBC (Bld) [#/Vol]7.4 10*3/uLNormal3.8-11.6The [facility] Physician GroupComment on above:Performed By: #### CBC, CMP wRFX A1C, EBS A1C #### [facility] [address] [place] [address] USACreatinine [Mass/volume] in Serum or PlasmaOrdered By: Leti Salter on 84-47-0499Wiwbjmmgjd [Mass/Vol]Creatinine [Mass/volume] in Serum or Plasma0.60-1.20The Jewish HospitalEBS A1C with Estimated Ave Gluon 27-71-7471Pokcuql [Mass/Vol]114 mg/dLBaptist Hospital Physician GroupComment on above:Result Comment: PERFORMED BY: [place] [address] PATHOLOGIST WAGON WINDER YOVANY BHAT M.D.Performed By: #### CBC, CMP wRFX A1C, EBS A1C #### [place] [address] USAECG 12 lead ECGon 31-91-1571BPR 12 lead ECGSUMMA HEALTH BARBERTON CAMPUS [address] [place] [address] [place] [address] Electrocardiograph Report Signed Patient: Mirta Welsh MR#: [id number] : 1950 Acct:[id number] Age/Sex: 73 / F ADM Date: 10/04/24 Loc: Room: Type: [facility] Attending Dr: Leti Salter MD Ordering Provider: Leti Salter MD Date of Service: 10/04/24 ECG/ECG 12 lead ECG: Pre op Copies to: Test Reason : Blood Pressure : */* mmHG Vent. Rate : 75 BPM Atrial Rate : 75 BPM P-R Int : 176 ms QRS Dur : 136 ms QT Int : 394 ms P-R-T Axes : 8 2 85 degrees QTcB Int : 439 ms Normal sinus rhythm Left bundle branch block Abnormal ECG When compared with ECG of 20-Sep-2016 13:55, Left bundle branch block is now present Criteria for Septal infarct are no longer present Confirmed by VANESSA CELAYA MD ([id number]) on 10/06/2024 11:19:59 AM Referred By: Electronically Signed By: VANESSA CELAYA MD Transcribed By: MUS Signed By Vanessa Celaya MD 0 10/06/24 1120[facility] Physician GroupEosinophils Auto (Bld) [#/Vol] Ordered By: Leti Salter on 48-81-4420Gjlelkukzhk (Bld) [#/Vol]Automated eosinophil countHigh0.0-0.45The Jewish HospitalEosinophils/100 WBC Auto (Bld)Ordered By: Leti Salter on 08-44-8423Izlnysvxpoy/100 WBC (Bld) Automated eosinophil %.The Jewish HospitalErythrocyte distribution width Auto (RBC) [Ratio]Ordered By: Leti Salter on 52-71-8806Geclmtxmalq distribution width (RBC) [Ratio]Erythrocyte distribution width [Ratio] by Automated count11.9-15.3FDoctors HospitalGlobulin Calc (S) [Mass/Vol]Ordered By: Leti Salter on 44-92-0536Pabhlalc (S) [Mass/Vol]Serum globulin measurement by calculation (mass/volume)The Jewish HospitalGlucose [Mass/volume] in Serum or PlasmaOrdered By: Leti Salter on 53-95-5729Zwuugxz [Mass/Vol]Glucose [Mass/volume] in Serum or WjwfrfVybn29-986 The Jewish HospitalComment on above:ADA recommended reference rangeHematocrit Auto (Bld) [Volume fraction]Ordered By: Leti Salter on 04-58-3486Tpxmjgpbgu (Bld) [Volume fraction]Hematocrit [Volume Fraction] of Blood by Automated count34.0-46.4FDoctors HospitalHemoglobin A1c measurementOrdered By: Leti Salter on 47-92-1532IiR8a (Bld) [Mass fraction] 5.6 %Normal4.3-5.6FDoctors HospitalComment on above:Increased risk for diabetes: 5.7 - 6.4diabetes: >6.4glycemic control for adults with diabetes: <7.0Result Comment: Increased risk for diabetes: 5.7 - 6.4 diabetes: >6.4 glycemic control for adults with diabetes: <7.0Performed By: #### CBC, CMP wRFX A1C, EBS A1C #### [place] [id number] USAHemoglobin [Mass/volume] in BloodOrdered By: Leti Salter on 25-59-9670Qovflodijv (Bld) [Mass/Vol]Hemoglobin [Mass/volume] in Blood 11.8-15.4FDoctors HospitalLeukocytes [#/volume] corrected for nucleated erythrocytes in Blood by Automated counOrdered By: Leti Salter on 10-54-2261KBA corrected for nucl RBC Auto (Bld) [#/Vol]Leukocytes [#/volume] corrected for nucleated erythrocytes in Blood by Automated coun3.8-11.6FDoctors HospitalLymphocytes Auto (Bld) [#/Vol]Ordered By: Leti Salter on 89-42-6665Chiqacuguob (Bld) [#/Vol]Lymphocytes [#/volume] in Blood by Automated count1.00-4.8The Jewish HospitalLymphocytes/100 WBC Auto (Bld)Ordered By: Leti Salter on 58-01-2178Gogmauqeuig/100 WBC (Bld) Lymphocytes/100 leukocytes in Blood by Automated count.The Jewish HospitalMCH Auto (RBC) [Entitic mass]Ordered By: Leti Salter on 53-86-9468KGD (RBC) [Entitic mass]MCH [Entitic mass] by Automated count24.7-34.3 The Jewish HospitalMCHC Auto (RBC) [Mass/Vol]Ordered By: Leti Salter on 49-30-3722SWCZ (RBC) [Mass/Vol]MCHC [Mass/volume] by Automated count 32.0-35.0The Jewish HospitalMCV Auto (RBC) [Entitic vol]Ordered By: Leti Salter on 83-40-5363OHY (RBC) [Entitic vol]MCV [Entitic volume] by Automated -309SxmzrejzbThe Jewish HospitalMonocytes Auto (Bld) [#/Vol]Ordered By: Leti Salter on 32-66-5173Fqgxuucud (Bld) [#/Vol]Automated blood monocyte count0.0-0.8The Jewish HospitalMonocytes/100 WBC Auto (Bld)Ordered By: Leti Salter on 23-88-1544Ovxlzqpjg/100 WBC (Bld) Automated monocyte %.The Jewish HospitalNeutrophils Auto (Bld) [#/Vol]Ordered By: Leti Salter on 61-94-1901Qaonzfsevkm (Bld) [#/Vol] Neutrophils [#/volume] in Blood by Automated count1.8-7.7FDoctors HospitalNeutrophils/100 WBC Auto (Bld)Ordered By: Leti Salter on 67-88-2475Jrnyljycpcb/100 WBC (Bld)Automated neutrophil %.The Jewish HospitalNo Panel InformationOrdered By: Leti Salter on 10-04-2024 Estimated GFR (CKD-EPI)> 60.0 mL/MinThe Jewish HospitalPharmacy Creatinine Clearance (ChemN/AFDoctors HospitalNucleated erythrocytes [Presence] in Blood by Automated countOrdered By: Leti Salter on 48-22-6578Ixxipmqik RBC Auto Ql (Bld)Nucleated erythrocytes [Presence] in Blood by Automated count0-0.5FDoctors HospitalPlatelet mean volume Auto (Bld) [Entitic vol]Ordered By: Leti Salter on 59-69-4848Zktkoiyt mean volume (Bld) [Entitic vol]Platelet mean volume [Entitic volume] in Blood by Automated count6.3-10.7FDoctors HospitalPlatelets Auto (Bld) [#/Vol]Ordered By: Leti Salter on 51-96-2033Fpekyvggg (Bld) [#/Vol]Platelets [#/volume] in Blood by Automated uowrk525-625KwalwfnyzThe Jewish Hospital Potassium [Moles/volume] in Serum or PlasmaOrdered By: Leti Salter on 49-11-6426Zgjcldicl [Moles/Vol]Potassium [Moles/volume] in Serum or Plasma 3.5-5.1FDoctors HospitalProtein [Mass/volume] in Serum or Plasma Ordered By: Leti Salter on 82-34-4489Yiqdojf [Mass/Vol]Protein [Mass/volume] in Serum or PlasmaLow6.4-8.9The Jewish HospitalRBC Auto (Bld) [#/Vol]Ordered By: Leti Salter on 64-12-6984LQI (Bld) [#/Vol]Erythrocytes [#/volume] in Blood by Automated count3.60-5.00[facility] Serum or plasma albumin/globulin mass ratioOrdered By: Leti Salter on 64-38-2217Eoysdre/Globulin [Mass ratio]Serum or plasma albumin/globulin mass ratioWadsworth-Rittman Hospitalerum or plasma anion gap determination Ordered By: Leti Salter on 01-03-7958Ridku gap [Moles/Vol]Serum or plasma anion gap determination6.0-15.0Wadsworth-Rittman Hospitalodium [Moles/volume] in Serum or PlasmaOrdered By: Leti Salter on 96-47-5874Ltyrxw [Moles/Vol]Sodium [Moles/volume] in Serum or Qqlntu152-331XbipbwpidThe Jewish HospitalUrea nitrogen [Mass/volume] in Serum or PlasmaOrdered By: Leti Salter on 73-17-6061Xcqg nitrogen [Mass/Vol]Urea nitrogen [Mass/volume] in Serum or Plasma7-25The Jewish HospitalWBC Auto (Bld) [#/Vol]Ordered By: Leti Salter on 16-93-0148YJQ (Bld) [#/Vol]Leukocytes [#/volume] in Blood by Automated count3.8-11.6FDoctors HospitalX-ray reportOrdered By: Mami Underwood on 30-51-6780Pdpjl reportSUMMA HEALTH BARBERTON CAMPUS [facility] [address] [place] [address] XRay Report Signed Patient: Mirta Welsh MR#: [id number] : 1950 Acct:[id number] Age/Sex: 73 / F ADM Date: 5 Loc: [facility] Room: Type: [facility] Attending Dr: Leti Salter MD Copies to: Leti Salter MD~ Ordering Provider: Leti Salter MD Date of Service: 09/22/24 XR/XR hand RT min 3V*: M79.641 - Pain in right hand RIGHT HAND - 3 views CLINICAL DATA: Right hand pain at the third finger where there is chronic flexion. COMPARISON: None AP, lateral and oblique views were obtained. No acute fractures are identified. There is minor subluxation at the distal interphalangeal joint of the second finger. There is also subluxation at the proximal interphalangeal joint of the third finger. There is erosion at the head of the proximal phalanx at that site. There is joint space narrowing at some of the interphalangeal joints, greatest at the first through third digits where there is also mild hypertrophy. Degenerative changes also seen at the first carpal metacarpal joint. There are no significant soft tissue abnormalities. XR/XR hand RT min 3V* IMPRESSION: DEGENERATIVE CHANGES, DESCRIBED. Impression dictated by: aMmi Underwood M.D.09/22/2024 8:05 PM Dictation Location: [place] [address] Transcribed By: [facility] 09/22/242004 Dictated By: Mami Underwood MD 09/22/242000 Signed By: 09/22/242004 [facility] Work Phone: XR hand RT min 3V*on 65-22-6283UY hand RT min 3V* [facility] [address] [place] [address] XRay Report Signed Patient: Mirta Welsh MR#: [id number] : 1950 Acct:[id number] Age/Sex: 73 / F ADM Date: 09/22/24 Loc: [facility] Room: Type: [facility] Attending Dr: Leti Salter MD Copies to: Leti Salter MD Ordering Provider: Leti Salter MD Date of Service: 09/22/24 XR/XR hand RT min 3V*: M79.641 - Pain in right hand RIGHT HAND - 3 views CLINICAL DATA: Right hand pain at the third finger where there is chronic flexion. COMPARISON: None AP, lateral and oblique views were obtained. No acute fractures are identified. There is minor subluxation at the distal interphalangeal joint of the second finger. There is also subluxation at the proximal interphalangeal joint of the third finger. There is erosion at the head of the proximal phalanx at that site. There is joint space narrowing at some of the interphalangeal joints, greatest at the first through third digits where there is also mild hypertrophy. Degenerative changes also seen at the first carpal metacarpal joint. There are no significant soft tissue abnormalities. XR/XR hand RT min 3V* IMPRESSION: DEGENERATIVE CHANGES, DESCRIBED. Impression dictated by: Mami Underwood M.D.09/22/2024 8:05 PM Dictation Location: [place] [address] Transcribed By: [facility] 09/22/242004 Dictated By: Mami Underwood MD 09/22/242000 Signed By: 09/22/[address] [place] [address] Physician [facility] NatchezXR KNEE 3 VIEWS BILATERALon 86-80-8610PI KNEE 3 VIEWS BILATERALTITLE OF EXAM: XR KNEE 3 VIEWS BILATERAL REASON FOR EXAM: Bilateral generalized chronic knee pain, gets injections. TECHNIQUE: 1. 3 radiographs of the right knee. 2. 3 radiographs of the left knee. COMPARISONS: Knee radiographs 11/15/2020 FINDINGS: Right knee: No fracture. Severe medial and moderate to severe lateral and patellofemoral compartment osteoarthrosis with marginal osteophyte formation and articular surface contour remodeling. There is near complete loss of medial compartment joint space. Subluxation of the femoral condyles medially relative to the tibial plateau, perhaps approximately 3 mm. No effusion or focal soft tissue abnormality. Left knee: No fracture. Severe tricompartmental osteoarthrosis with marginal osteophyte formation and articular surface contour remodeling. Near complete loss of medial compartment joint space. Subluxation of the femoral condyles medially relative to the tibial plateau, perhaps approximately 5 mm. Minimal volume suprapatellar effusion. No focal soft tissue abnormality. IMPRESSION: 1. Severe multicompartmental osteoarthrosis as described, radiographically advanced of the right knee relative to the comparison study of October 2020. 2. Minimal volume left suprapatellar effusion. DICTATED ON: 08/30/2024 11:50 AM This report has been electronically signed and approved by the interpreting radiologist.NormalNot AvailableFollow-Upon 81-58-3170Elxsay-[id number] Mirta Welsh 1950 F Date Provider Department Center 08/04/2024 DENIZ LUU MP ORTHO MPORTHO No family history on file Level of Service:77002 [place] OFFICE/OUTPATIENT ESTABLISHED LOW [facility] 20 MIN Reason for Visit and Comments: Pain [136]NormalUnPremier Health Upper Valley Medical Centero Medical Nxxypl93ny 48-11-188149Xqpf to Memorial HospitalFollow-Upon 81-41-9432Xgrnvn-Up [id number] Mirta Welsh 1950 F Date Provider Department Center 06/22/2024 DENIZ LUU MP ORTHO MPORTHO No family history on file Level of Service:90987 [place] POSTOP FOLLOW UP VISIT RELATED TO ORIGINAL PX (GC) Reason for Visit and Comments: Pain [136][facility]36on 20-50-125001Sjxyb the order overNormalUniCentervilleon 05-17-2024 Orders [id number] Mirta Welsh 1950 F Date Provider Department [place] 05/17/2024 KRUNAL LEIGH MP ORTHO MPORTHO No family history on [address]No[address] 61-96-143601Txqa to [facility] MD, Cancer CenterFollow-Upon 99-56-9668Eixpwo-[id number] Mirta Welsh 1950 F Provider Department [place] 05/11/2024 DENIZ LUU MP ORTHO MPORTHO No family history on file Level of Service:40853 [place] POSTOP FOLLOW UP VISIT RELATED TO ORIGINAL PX Reason for Visit and Comments: Pain [136][facility] CenterALL CBC WITH AUTO DIFFon 31-44-6282ITYXFXPFI ABSOLUTE AUTO0.0NOMS HealthcareBasophils/100 WBC (Bld)0.6 % 0.2 - 2.0 %NOMS HealthcareEosinophils/100 WBC (Bld)9.1 %High0.9 - 7.0 %NOMS HealthcareErythrocyte distribution width (RBC) [Ratio]13.2 %11.0 - 15.0 %NOMS HealthcareHematocrit (Bld) [Volume fraction]40.9 %36.0 - 48.0 %[facility] Hemoglobin (Bld) [Mass/Vol]13.4 g/dL12.0 - 16.0 g/dLNOMS HealthcareIMMATURE GRANULOCYTES ABS AUTO0.02NOMS HealthcareImmature granulocytes/100 WBC (Bld)0.3 % 0.0 - 0.5 %NOM HealthcareInterpretation and review of laboratory results AbnormalNOMS HealthcareLYMPHOCYTES ABSOLUTE AUTO2.8[facility] Lymphocytes/100 WBC (Bld)40.4 %20.5 - 60.0 %NOMEllis Fischel Cancer CenterH (RBC) [Entitic mass]31.5 pg26.7 - 34.0 pgNOSaint John's Saint Francis HospitalHC (RBC) [Mass/Vol]32.8 g/dL29.9 - 35.2 g/dLNOSaint John's Saint Francis HospitalV (RBC) [Entitic vol]96.0 fL81.0 - 99.0 fLNONV HealthcareMONOCYTES ABSOLUTE AUTO0.5NOMS HealthcareMonocytes/100 WBC (Bld)7.7 % 1.7 - 12.0 %NOM HealthcareNEUTROPHILS ABSOLUTE AUTO2.9[facility] Neutrophils/100 WBC (Bld)41.9 %Low43.0 - 75.0 %NOM HealthcarePlatelet mean volume (Bld) [Entitic vol]8.6 fLLow9.5 - 13.5 fLNOMS HealthcareTBH EO #0.6NOMS HealthcareTBH [id number] HealthcareTBH RBC4.26NOMS HealthcareTBH WBC7.0NOMS HealthcareCLINISYNCNOMS HealthcareDocumentationon 46-21-0749Hwiaxqfqzsdcp [id number] Mirta Welsh 1950 Date Provider Department Center 04/15/2024 Warren1ANDERSON ATKINSON MP OT Medical Pavi No family history on file Reason for Visit and Comments: OT Treatment [286] - Patient presented this date and right long finger orthosis was adjusted to extend to include the entire finger from MP joint to the tip.[facility] CenterFollow-Upon 84-46-2778Jhkvit-Up [id number] Mirta Welsh 1950 Date Provider Department Center 04/14/2024 DENIZ LUU MP ORTHO MPORTHO No family history on file Level of Service:29885 [place] POSTOP FOLLOW UP VISIT RELATED TO ORIGINAL PX Reason for Visit and Comments: Post-op [483][facility]36on 39-71-109947Uled to [facility] MD, Cancer CenterOffice Visiton 03-56-7340Jgapfd-up [id number] Mirta Welsh 1950 F Date Provider Department Center 04/06/2024 DENIZ LUU ORTHO MPORTHO No family history on file Level of Service:45150 [place] POSTOP FOLLOW UP VISIT RELATED TO ORIGINAL PX Reason for Visit and Comments: Post-op [483][facility] CenterHPon 16-40-9765HMJ&P reviewed. The patient was examined and there are no changes to the H&P.[facility] HospitalNDel[facility] 66-57-8339NLRGBCNQOzgyig is at bedsideNormalUniUniversity Hospitals Geneva Medical CenterOPNOTBanner Ironwood Medical Center 57-47-6423ZOYQSR Operative Note Patient: Mirta Welsh Date of Surgery: 03/25/2024 : 1950 Pre-operative Diagnosis: Extensor lag right long finger, with possible deep infection. Post-operative Diagnosis: same Operation: Repair of extensor mechanism right long finger Surgeon: Deniz Roldan MD Waste Picker: Carlos Valdes MD Staff: Wet Roller: Cara Andrews RN Relief Wet Roller: Yessenia Kothari RN Relief Scrub: Reyna Parnell [...] None Disposition: PACU Condition: Stable Deniz Roldan MDNormalUniversOhio State Health SystemPOCT GLUCOSE METER UNSOLICITED RESULTSon 54-73-4387Inbxbmn [Mass/Vol]96 mg/mJYobhew28-723UpycdghdelSumma HealthComment on above:Order Comment: Waived Testing in the ED is performed under the ED CLIA certificate #[id number].Result Comment: [email or web address] Performed By: #### [id number] #### [facility] ([facility]) [address] [place], [place] [address]WLDQP CULTUREon 71-00-4705EPTM STAIN RESULTNormalUniUniversity Hospitals Geneva Medical CenterComment on above:Order Comment: Pre-op diagnosis:Tendon pain [M79.10]Result Comment: No polymorphonuclear leukocytes seen No organisms seenPerformed By: #### [id number] ####[facility] ([facility])[address] [place], [place] [address]BSAPR CULTURENo growth at 5 daysNormalUniUniversity Hospitals Geneva Medical CenterComcorewell health blodgett hospital on above:Order Comment: Pre-op diagnosis:Tendon pain [M79.10]Performed By: #### [id number] ####[facility] ([facility])[address] [place], [place] [address]ie 39-48-911692Uesg to [facility], MD, Cancer CenterOrders Onlyon 52-85-9152Jjprae [id number] Mirta Welsh 1950 F Date Provider Department Center 03/23/2024 46509-AJKKONATY JAQUEZ [facility] C No family history on fileNormalUniversOhio State Health System36on 25-36-234713Uchcze informed patient that she could be seen at clinic before 11am today, [facility] the [facility]No[facility]36Patient called and would like to be seen today, patient states she is currently taking atb keflex 500mg QIDNWooster Community HospitalAbstracton [id number] Mirta Welsh 1950 F Date Provider Department Center 03/19/2024 803-KRUNAL CROWDER MP OR[facility]O [facility] No family history on fileNormalUParkview Health Montpelier HospitalFollow-Upon 25-01-1026Owtvlf-[id number] Mirta Welsh 1950 F Date Provider Department Center 03/19/2024 438-DENIZ ROLDAN ORTHO [facility] No family history on file Level of Service:88069 [place] POSTOP FOLLOW UP VISIT RELATED TO ORIGINAL PX Reason for Visit and Comments: Follow-up [414941]NormalUnUniversity Hospitals Portage Medical CenterHPon 54-86-9028WS Orthopedic Surgery 02/09/2024 I&d, Pinning Right Long [...] if there is any infection that is present.[address] Patient has upcomming appointment with On Friday03/23/24. Patient thinks that is to long to wait she believes that she has and infection in her right middle. Patient states her finger is hot red and swollen, and her pain is a 6/10. Patient is asking for a earlier appointment then Friday. Please advise. Thank you.[facility]36Patient was moved up to fridayNoMercy Health St. [facility]36Patient requesting a call back states she needs to be seen sooner, her finger keepts swelling upNorm[address] 95-13-773363Qzzy to [facility], MD, Cancer CenterAbstracton 87-72-7505Iysaaqfg [id number] Mirta Welsh 1950 Date Provider Department Center 03/10/2024 803-KRUNAL CROWDER MP ORTHO MPORTHO No family history on fileNoMercy Health St. Joseph Warren HospitalOffice Visiton 96-88-3579Sltifp-up [id number] Mirta Welsh 1950 Date Provider Department Center 03/10/2024 [place]-DENIZ ROLDAN MP ORTHO MPORTHO No family history on file Level of Service:78935 [place] POSTOP FOLLOW UP VISIT RELATED TO ORIGINAL PX Reason for Visit and Comments: Post-op [483][facility] [facility]36on [id number] other messageNormalUniversOhio State Health System36Patient was called and moved to 03/10, patient called back and states that she can not make it that day, patient will be on my list to move up sooner. [facility] CenterOrders Onlyon [phone] Only [id number] Mirta Welsh 1950 Date Provider Department [place] 03/04/2024 803-VELGREGORIOHANNAH TATE ORTHO MPORTHO No family history on fileNormalUniversity Marietta Memorial Hospital36on [id number] states she has another appointment on the same day as [...] a call if this will be an issues.[facility]36Pt is scheduled for post op appt on 03/10 that she needs to reschedule I was only able to offer 04-12 anything sooner??[facility]36 on [id number] to [facility] CenterOffice Visiton 54-28-0715Qtbbuq-up [id number] Mirta Welsh 1950 Provider Department [place] 02/25/2024 438-DENIZ ROLDAN MP No family history on file Level of Service:30540 OK POSTOP FOLLOW UP VISIT RELATED TO ORIGINAL PX Reason for Visit and Comments: Post-op [483][facility]36on [phone] to [facility]36on [phone] to [facility]36Sent to [facility]30on 05-15-694657Vvtphlq: Pain - Adult Goal: Verbalizes/displays adequate comfort level or baseline [...] call for assistance with activity based on assessmentNoal [facility]30Daily Case Management Update Multidisciplinary rounds have been completed. Barriers to Discharge: Pending Clinical course. Transfer from [place], I&D at bedside today R finger. Await [...] this care by adding your name here: ADAMDelvisDENIZ 02/09/24 0749 Therapy Orders (From admission, onward) Start Ordered 02/09/24 0746 PT eval and treat Until therapy completed Question: Reason for PT? Answer: weakness 02/09/24 0748 02/09/24 0746 OT eval and treat Until therapy completed Question: Reason for OT? Answer: weakness 02/09/24 0748NormalUniversOhio State Health SystemHPon 18-79-0500AKO&P reviewed. The patient was examined and there are no changes to the H&P.Normal [facility] HealthMRSA/MSSA DNA NASALon 56-13-6260AWES DNA NegativeNormalNegativeSumma HealthComment on above:Order Comment: Testing methodology is an automated qualitative in vitro [...] A negative result does not preclude nasal colonization.Performed By: #### [id number] #### [facility] ,MSSA DNANegativeNormalNegativeUnUniversity Hospitals Portage Medical CenterComment on above:Order Comment: Testing methodology is an automated qualitative in vitro diagnostic test for the directdetection and differentiation of Staphylococcus aureus (SA) DNA and methicillin-resistant Staphylococcus aureus (MRSA) DNA from nasal swabs in patients at risk for nasal colonization. The test utilizes real- time polymerase chain reaction (PCR) for the amplification of MRSA/SA DNA and fluorogenic target-specific hybridization probes for the detection of the amplified DNA. A negative result does not preclude nasal colonization.Performed By: #### [id number] #### [facility] ,OPNOTEon 05-22-0328WGBEQGIzzhytspu Note Patient: Mirta Welsh Date of Surgery: 02/09/2024 Pre-operative Diagnosis: Open dislocation PIP joint right long finger Post-operative Diagnosis: same Operation: 1. Irrigation and nonexcisional debridement of open joint, 2. Pinning PIP joint right long finger, 3. Extensor tendon repair right long finger, 4. Repair of ulnar collateral ligament PIP joint right long finger Surgeon: Deniz Roldan MD Waste Picker: Chuckie Miner MD Staff: Wet Roller: Cara Andrews RN Scrub Person: Rae Fry [...] then did the soft tissue repairs. A tnsgwv-oc-itcqq sutures placed into the collateral ligament repairing that bit back to the base of the middle phalanx. There was soft tissue and periosteum at the base that we could get a nice bite of the suture into. A second xrqtgq-yx-zxcbw suture was used to repair the central [...] Name Action Serial No. Pin K-WIRE,1.1,120MM - [id number] Implanted Complications: None Disposition: PACU Condition: stable Deniz Roldan MDNormalUniversity Marietta Memorial HospitalPOCT GLUCOSE METER UNSOLICITED RESULTSon 41-57-2691Leseuet [Mass/Vol]104 mg/pIKgmady01-515 [facility] HealthComment on above:Order Comment: Waived Testing in the ED is performed under the ED CLIA certificate #[id number].Result Comment: [id number] By: #### [id number] #### [facility] ([facility]) [address] [place], [place] [address]Zzgguun [Mass/Vol]96 mg/dHWxhtkq91-442NatdmqixepUniversity Hospitals Portage Medical CenterComment on above:Order Comment: Waived Testing in the ED is performed under the ED CLIA certificate #[id number].Result Comment: elacumsky Performed By: #### [id number] ####[facility] ([employer])[address] [facility], [place] [address]CJTMX METABOLIC PANELon 52-96-3370Xafnv gap [Moles/Vol]12 mmol/LNormal7-20UnUniversity Hospitals Portage Medical CenterComment on above:Performed By: #### [id number] #### [facility] ([facility]) [address] [place], [place] [address]Rkzkarm [Mass/Vol]8.5 mg/dLLow8.6-10.3UnUniversity Hospitals Portage Medical CenterComment on above:Performed By: #### [id number] #### [facility] ([facility]) [address] [place] [address]Tzhagdxo [Moles/Vol]106 mmol/WMqpznk26-727WecpwnsramUniversity Hospitals Portage Medical CenterComment on above:Performed By: #### [id number] #### [facility] ([facility]) [address] [place] [address]NR7 [Moles/Vol]25 mmol/GEqrbto72-66YaefiakodwUniversity Hospitals Portage Medical CenterComment on above:Performed By: #### [id number] #### [facility] ([facility]) [address] [place] [address]Ehjmwvsvdd [Mass/Vol]0.60 mg/dLNormal0.60-1.20UnUniversity Hospitals Portage Medical CenterComment on above:Performed By: #### [id number] #### [facility] ([facility]) [address] [place], [place] [address]WHJQIISHPO FILTRATION RATE ML/MIN/1.73 SQ M.YLYYJVWUP06.9 mL/min/1.73m*2Normal>60.0UnUniversity Hospitals Portage Medical CenterComment on above: Result Comment: The [facility]???s estimated glomerular filtration rate (eGFR) will no [...] potential consequences that do not disproportionately affect anyone group of individuals.Performed By: #### [id number] #### [facility] ([facility]) [address] [place] [address]Chmeqpr [Mass/Vol]85 mg/fGUbovsn71-056MvspawaizxUniversity Hospitals Portage Medical CenterComment on above:Performed By: #### [id number] #### [facility] ([facility]) [address] [facility] [place], [place] [address]Oevizcqaq [Moles/Vol]3.8 mmol/LNormal3.5-5.1UnUniversity Hospitals Portage Medical CenterComment on above:Performed By: #### [id number] #### [facility] ([facility]) [address] [place], [place] [address]Ckvsvu [Moles/Vol]139 mmol/CJrpolb919-522NtnnkfgpfyUniversity Hospitals Portage Medical CenterComment on above:Performed By: #### [id number] #### [facility] ([facility]) [address] [facility] CENTERDelvis [place], [place] [address]Leqc nitrogen [Mass/Vol]10 mg/dLNormal7-25UnUniversity Hospitals Portage Medical CenterComment on above:Performed By: #### [id number] #### [facility] ([facility]) [address] [place], [place] [address]FZJO NITROGEN/CREATININE (MASS RATIO) IN SER/PLAS16.7Normal [facility] HealthComment on above:Performed By: #### [id number] #### [facility] ([facility]) [address] [place], [place] [address]NCR WITH AUTO DIFFERENTIALon 17-28-3337Uhkbsoqai (Bld) [#/Vol] 0.04 10*3/uLNormal0.00-0.20UnUniversity Hospitals Portage Medical CenterComment on above: Performed By: #### [id number] #### [facility] ([facility]) [address] [place], [place] [address]Zdculgixm/100 WBC (Bld)0.4 %Normal0.0-1.0UnUniversity Hospitals Portage Medical CenterComment on above:Performed By: #### [id number] #### [facility] ([facility]) [address] [facility] [place], [place] [address]Obuakrevbaz (Bld) [#/Vol]0.25 10*3/uLNormal0.00-0.50UnUniversity Hospitals Portage Medical CenterComment on above:Performed By: #### [id number] #### [facility] ([facility]) [address] [place], [place] [address]Wgexrpielau/100 WBC (Bld)2.7 %Normal0.0-6.0UnUniversity Hospitals Portage Medical CenterComment on above:Performed By: #### [id number] #### [facility] ([facility]) [address] [place] [place] [address]Xthyvnpjmch distribution width (RBC) [Ratio]13.8 %Normal 11.5-15.0UnUniversity Hospitals Portage Medical CenterComment on above:Performed By: #### [id number] #### [facility] ([facility]) [address] [place], [place] [address]TGJFYOZABVG MEAN CORPUSCULAR HEMOGLOBIN CONCENTRATION (G/DL) BY JFXJPTPQV60.4 g/tGTemvyl89.0-35.0UnUniversity Hospitals Portage Medical CenterComment on above:Performed By: #### [id number] #### [facility] ([facility]) [address] [place] [place], [place] [address]Mmhwuurgwz (Bld) [Volume fraction]39.8 %Dnosqf70.0-48.0 [facility] HealthComment on above:Performed By: #### [id number] #### [facility] ([facility]) [address] [place], [place] [address]Onnbfqqqcd (Bld) [Mass/Vol]12.9 g/gNGttwex06.0-15.0UnUniversity Hospitals Portage Medical CenterComment on above:Performed By: #### [id number] #### [facility] ([facility]) [address] [facility] [place]RNADel[place], [place] [address]Ohjtylus granulocytes (Bld) [#/Vol]0.02 10*3/uLNormal0.00-0.20 [facility] HealthComment on above:Performed By: #### [id number] #### [facility] ([facility]) [address] [place], [place] [address]Ieojyynv granulocytes/100 WBC (Bld)0.2 %Normal0.0-1.0UnUniversity Hospitals Portage Medical CenterComment on above:Performed By: #### [id number] #### [facility] ([facility]) [address] [place] [address]Msstcgiqnkp (Bld) [#/Vol]2.74 10*3/uLNormal1.20-4.00UnUniversity Hospitals Portage Medical CenterComment on above:Performed By: #### [id number] #### [facility] ([facility]) [address] [place] [address]Sfzemchycod/100 WBC (Bld)29.6 %Ssnicb04.0-45.0UnUniversity Hospitals Portage Medical CenterComment on above:Performed By: #### [id number] #### [facility] ([facility]) [address] [place], [place] [address]ABW (RBC) [Entitic mass]31.2 zwAjtfoo55.0-33.0UnUniversity Hospitals Portage Medical CenterComment on above:Performed By: #### [id number] #### [facility] ([facility]) [address] [place], [place] [address]UBL (RBC) [Entitic vol]96.4 aNDsdpvc39.0-98.0UnUniversity Hospitals Portage Medical CenterComment on above:Performed By: #### [id number] #### [facility] ([facility]) [address] [place], [place] [address]Msbisrsfj (Bld) [#/Vol]0.77 10*3/uLNormal0.10-1.00UnUniversity Hospitals Portage Medical CenterComment on above:Performed By: #### [id number] #### [facility] ([facility]) [address] [place], [place] [address]Cvdofmgxi/100 WBC (Bld)8.3 %Normal5.0-12.0UnUniversity Hospitals Portage Medical CenterComment on above:Performed By: #### [id number] #### [facility] ([facility]) [address] [place], [place] [address]Zpvrjbsbiut (Bld) [#/Vol]5.45 10*3/uLNormal1.60-7.60UnUniversity Hospitals Portage Medical CenterComment on above:Performed By: #### [id number] #### [facility] ([facility]) [address] [place] [address]Mobnklsrrss/100 WBC (Bld)58.8 %Vnwkqh23.0-72.0UnUniversity Hospitals Portage Medical CenterComment on above:Performed By: #### [id number] #### [facility] ([facility]) [address] [place] [address]SQBU (PER 100 WBCS) BY AUTOMATED COUNT0.0 %Rsmmmk0RcrvxqshluUniversity Hospitals Portage Medical CenterComment on above:Performed By: #### [id number] #### [facility] ([facility]) [address] [place] [address]MNNRGJVZX (10*3/UL) IN BLOOD AUTOMATED VFYLQ200 10*3/uLNormal 150-400UnUniversity Hospitals Portage Medical CenterComment on above:Performed By: #### [id number] #### [facility] ([facility]) [address] [place] [address]NRJ (Bld) [#/Vol]4.13 10*6/uLNormal3.80-5.00UnUniversity Hospitals Portage Medical CenterComment on above:Performed By: #### [id number] #### [facility] ([facility]) [address] [place] [address]VTC (Bld) [#/Vol]9.27 10*3/uLNormal4.00-10.60UnUniversity Hospitals Portage Medical CenterComment on above:Performed By: #### [id number] #### [facility] ([facility]) [address] [place] [address]KN CERVICAL SPINE WO IV CONTRASTon 03-59-6115AX CERVICAL SPINE WO IV CONTRASTCT CERVICAL SPINE WO IV CONTRAST 02/08/2024 7:02 [...] pathology or malalignment. Electronically signed: Mary Martinez MD.[facility] CenterCT HEAD WO IV CONTRASTon 49-22-1080SO HEAD WO IV CONTRASTCT HEAD WO IV CONTRAST 02/08/2024 7:02 PM CLINICAL INDICATIONS: History of fall today. Pain TECHNOLOGIST COMMENTS: Recent fall QUESTION FOR THE RADIOLOGIST: Evaluate possible intracranial bleeding PROTOCOL: TECHNIQUE:Multi-detector CT axial slices of the brain were [...] bleeding or pathology. Electronically signed: Mary Martinez MD.[facility] / Crille HospitalNURSon 20-39-0918PKRLQHUvtvuanu from [facility] HospitalHPon 98-41-7871LA Attestation signed by Deniz Roldan MD at [...] off running. They presented to the [facility] Emergency Department where x-rays were obtained [...] her regarding conservative and operative options including risks/benefits/alternatives/indications, the patient is agreeable to surgical intervention. [...] Yuli Grover MD Orthopedic Surgery Resident, PGY-1 02/08/2024NormalUniversOhio State Health SystemPROTIME-INRon 44-67-1302MAT IN PPP BY COAGULATION ASSAY0.09Vqdusu3.90-1.10UnUniversity Hospitals Portage Medical Center Comment on above:Result Comment: ACCCP RECOMMENDED INR FOR WARFARIN THERAPY CONDITION INR PROPHYLAXIS OF VENOUS THROMBOSIS 2-3 (HIGH-RISK SURGERY) TREATMENT OF VENOUS THROMBOSIS 2-3 TREATMENT OF PULMONARY EMBOLISM 2-3 PREVENTION OF SYSTEMIC EMBOLISM: 2-3 ACUTE MYOCARDIAL INFARCTION TISSUE HEART VALVES VALVULAR HEART DISEASE ATRIAL FIBRILLATION RECURRENT SYSTEMIC EMBOLISM MECHANICAL HEART VALVE 2.5-3.5 FROM: ORAL ANTICOAGULANTS. MECHANISM OF ACTION, CLINICAL EFFECTIVENESS, AND OPTIMAL THERAPEUTIC RANGE. CHEST 1995;108:231S-246S.Performed By: #### [id number] #### [facility] [email or web address]) [address] [place], [place] [address]EPJGDFXYHVP TIME (PT) IN PPP BY COAGULATION ASSAY13.0 Seconds Xjwifv22.3-14.8UnUniversity Hospitals Portage Medical CenterComment on above:Performed By: #### [id number] #### [facility] [email or web address]) [address] [place], [place] [address]XVHV AND SCREENon 30-18-8444ZZ SCREENNegativeNormalUniUniversity Hospitals Geneva Medical CenterComment on above:Performed By: #### [id number] #### [facility] ,ABO group Nom (Bld)ONormalUnUniversity Hospitals Portage Medical CenterComment on above: Performed By: #### [id number] #### [facility] ,RH TYPE IN BLOODPositiveNormalUniUniversity Hospitals Geneva Medical CenterComment on above:Performed By: #### [id number] #### [facility] ,VITAMIN D 25 HYDROXYon 47-03-2663DEGMAEPBY (25 [place] VITAMIN D3) (NG/ML) IN SER/PLAS49.9 ng/gTNbzwtl88.0-80.0UnUniversity Hospitals Portage Medical CenterComment on above:Result Comment: >80.0 Toxicity possiblePerformed By: #### [id number] #### [facility] ([facility]) [address] [place], [place] [address]OQJY T3on 63-87-7800DRJM T32.83 pg/mlLNormal2.18-3.98The [facility] Memorial HospitalComment on above:Performed By: #### TSH, FT3, BMP ####[facility] [address] [address]Dr. Mary Ellen RolonFREE T4on 14-52-9846Gjyz T4 [Mass/Vol]1.03 ng/dLNormal0.76-1.46The [facility] Comment on above:Performed By: #### FT4 #### [facility] [address] [address] [address] Mary Ellen RolonGLYCOHEMOGLOBIN A1Con 63-20-3797COA RECOMMENDATIONSEE BELOWNormal Veterans Health AdministrationComment on above:Result Comment: ADA RECOMMENDED LIMIT 4.0 - 6.0 ADA THERAPEUTIC TARGET < 7.0 ACTION SUGGESTED > 7.0Performed By: #### A1C ####[facility] [address] [address]Dr. Mary Ellen RolonGlucose [Mass/Vol]137 mg/dLNormalThBrown Memorial HospitalComment on above:Performed By: #### A1C ####[facility] [address] [address]Dr.Yilan LjsveSbC7e (Bld) [Mass fraction]6.4 % Critically high4.5-6.2The [facility]. Ruby Memorial HospitalComment on above:Performed By: #### A1C ####[facility] [address] [place], [place] [address]Dr. Yilan ChangPROF CHEM 8 (BAS METB)on 60-43-1712Akarx gap [Moles/Vol]11.5 mmol/L NormalThe [facility].W. Ruby Memorial HospitalComcorewell health blodgett hospital on above:Performed By: #### TSH, FT3, BMP ####[facility] S[address]cl[address] [place], [place] [address]Dr. Yilan ChangCalcium [Mass/Vol]9.2 mg/dLNormal8.5-10.1The [facility]enan Private Hospitalment on above:Performed By: #### TSH, FT3, BMP ####[facility] F[address]ab[address] [place], [place] [address]Dr. Yilan ChangChloride [Moles/Vol]102 mmol/VOgvyxq02-089Xom [facility] on above:Performed By: #### TSH, FT3, BMP ####[facility] [address]zdbgtsjsi[address] [place], [place] [address]Dr. Yilan ChangCO2 [Moles/Vol]29.5 mmol/QAtwddw84.0-32.0The [facility]. [facility] Memorial HospitalComment on above:Performed By: #### TSH, FT3, BMP ####[facility] [address]voolxqiep[address] [place], [place] [address]Dr. Yilan ChangCreatinine [Mass/Vol]0.66 mg/dLNormal0.55-1.02The [facility]. Ruby Memorial HospitalComcorewell health blodgett hospital on above: Performed By: #### TSH, FT3, BMP ####[facility] Wgiitsiv[address] [place], [place] [address]Dr. Yilan ChangEGFR-AF CYMRO>60Normal>=60The [facility]. Ruby Memorial HospitalComment on above:Performed By: #### TSH, FT3, BMP ####[facility] [address] [address]Dr. Yilan ChangEGFR- NON AF CYMRO>60Normal>=60The [facility]. [facility] Memorial HospitalComment on above:Performed By: #### TSH, FT3, BMP ####[facility] [address] [address]Dr. Yilan ChangGlucose [Mass/Vol]120 mg/dLCritically rpda73-098Vvn [facility] HospitalComment on above:Performed By: #### TSH, FT3, BMP ####[facility] [address] [address]Dr. Yilan ChangPotassium [Moles/Vol]4.0 mmol/LNormal3.5-5.1The [facility] Comment on above:Performed By: #### TSH, FT3, BMP ####[facility] [address] [place], [place] [address]Dr. Yilan ChangSodium [Moles/Vol]139 mmol/VRdvdoe078-497Ltw [facility] Private Hospitalment on above: Performed By: #### TSH, FT3, BMP ####[facility] Dj[address] [place], [place] [address]Dr. Yilan ChangUrea nitrogen [Mass/Vol]11.0 mg/dL Normal7.0-18.0The [facility] on above:Performed By: #### TSH, FT3, BMP ####[facility] Yzz[address]ruz[address] [place], [place] [address]Dr. Yilan ChangUrea nitrogen/Creatinine [Mass ratio]16.7 mg/mgNormalThe [facility]. [facility] Memorial HospitalComment on above:Performed By: #### TSH, FT3, BMP ####[facility] I[address]cks[address] [place], [place] [address]Dr. Yilan ChangTSHon 19-37-7476KQH1.734 uIU/mLNormal0.358-3.740The [facility]. [facility] Memorial HospitalComment on above: Performed By: #### TSH, FT3, BMP ####[facility] [address]ix[address] [place], [place] [address]Dr. Mary Ellen RolonSCREENING MAMMOGRAM W/BERONICA, BILATERAL* on 61-06-8305WDWMSMJWV MAMMOGRAM W/BERONICA, BILATERAL*CLINICAL HISTORY: Screening Mammogram COMPARISON: Priors dating back [...] VERY IMPORTANT TO YOUR HEALTH. THE CURRENT [employer] OF [employer] AND NATIONAL COMPREHENSIVE CANCER NETWORK GUIDELINES RECOMMENDS ANNUAL MAMMOGRAPHY BEGINNING AT AGE 40 THIS FACILITY USES A REMINDER SYSTEM TO ENSURE ALL PATIENTS RECEIVE REMINDER NOTIFICATIONS AT THE APPROPRIATE TIME BASED ON THE RECOMMENDATIONS OF THIS EXAM. Board Certified Radiologist. Accredited by the ACR and FDA. Report reported and signed by Abhi Jefferson on 04/02/2022 1442NormalNorthern Pennsylvania Medical SpecialistFREE T3on 76-95-9196QHCV T31.70 pg/mlLCritically low 2.18-3.98The [facility] HospitalComment on above:Performed By: #### FT4, VITAD #### [facility] [address] [address] [address] Mary Ellen RolonGLYCOHEMOGLOBIN A1Con 69-62-5849GMG RECOMMENDATIONSEE BELOWNormal Veterans Health AdministrationComment on above:Result Comment: ADA RECOMMENDED LIMIT 4.0 - 6.0 ADA THERAPEUTIC TARGET < 7.0 ACTION SUGGESTED > 7.0Performed By: #### A1C #### [facility] [address] [address] [address] Mary Ellen RolonGlucose [Mass/Vol]148 mg/dLNormalThBrown Memorial HospitalComment on above:Performed By: #### A1C #### [facility] [address] [address] [address] Mary Ellen RolonHbA1c (Bld) [Mass fraction]6.8 %Critically high4.5-6.2The [facility] Memorial HospitalComment on above:Performed By: #### A1C #### [facility] [address] [place] [address] Dr. Mary Ellen RolonLIPID PROFILEon 75-99-1326IDXC-HDL RATIO NORMSOhio State University Wexner Medical CenterComcorewell health blodgett hospital on above:Result Comment: 3.3 - 4.4 LOW RISK 4.4 - 7.1 AVERAGE RISK 7.1 - 11.0 MODERATE RISK >11.0 HIGH RISKPerformed By: #### TSH, FT3, T4, CMP, LIPID ####[facility] [address] [address]Dr. Mary Ellen RolonCholesterol [Mass/Vol]169 mg/dLNormal<=200C[facility] Clinic Avon Hospitalment on above:Performed By: #### TSH, FT3, T4, CMP, LIPID ####[facility] Anlvssublt[address] [place], [place] [address]Dr. Mary Ellen RolonCholesterol in HDL [Mass/Vol]51 mg/rUJnzlla73-91TskVeterans Health Administration Comment on above:Performed By: #### TSH, FT3, T4, CMP, LIPID ####[facility] I[address]ylpgeiae[address] [place], [place] [address]Dr. Mary Ellen Rolon Cholesterol in LDL [Mass/Vol]86.8 mg/dLKindred Hospital LimaComcorewell health blodgett hospital on above:Performed By: #### TSH, FT3, T4, CMP, LIPID ####[facility] [address] [place], [place] [address]Dr. Mary Ellen Rolon Cholesterol.total/Cholesterol in HDL [Mass ratio]3.3 {ratio}NormalVeterans Health AdministrationComcorewell health blodgett hospital on above:Performed By: #### TSH, FT3, T4, CMP, LIPID ####[facility] [address] [address]Dr. Mary Ellen RolonHDL NORMAL> or = 60 mg/dl - LOW CARDIOVASCULAR RISK <40 mg/dl - HIGH CARDIOVASCULAR RISKKindred Hospital LimaComcorewell health blodgett hospital on above:Performed By: #### TSH, FT3, T4, CMP, LIPID ####[facility] [address]zejtsam[address] [place], [place] [address]Dr. Mary Ellen RolonLDL CALC NORMALSEE [facility] [facility]Comcore[facility] on above:Result Comment: <100 mg/dl OPTIMAL 100 - 129 mg/dl NEAR OR ABOVE OPTIMAL 130 - 159 mg/dl BORDERLINE HIGH 160 - 189 mg/dl HIGH >190 mg/dl VERY HIGHPerformed By: #### TSH, FT3, T4, CMP, LIPID ####[facility] [address] [place] [address]Dr. Mary Ellen Rolon Triglyceride [Mass/Vol]156 mg/dLCritically high<=150The [facility] HospitalComment on above:Performed By: #### TSH, FT3, T4, CMP, LIPID ####[facility] [address] [place] [address]Dr. Mary Ellen RolonVLDL CALC31.2 mg/dLNormalThe [facility] HospitalComment on above:Performed By: #### TSH, FT3, T4, CMP, LIPID ####[facility] [address] [address]Dr. Mary Ellen RolonMICROALBUMIN, RAND URon 19-16-2886jTRE<1.3Normal<=30.0 The [facility] HospitalComment on above:Performed By: #### MALBR ####[facility] [address] [address]Dr. Mary Ellen RolonPROF 14(COMP METB)on 37-69-8475Zfvtzpv [Mass/Vol]3.6 g/dLNormal3.4-5.0Veterans Health AdministrationComment on above:Performed By: #### TSH, FT3, T4, CMP, LIPID ####[facility] [address] [place] [address]Dr. Mary Ellen RolonAlbumin/Globulin [Mass ratio]1.1 {ratio}NormalThe [facility] Comment on above:Performed By: #### TSH, FT3, T4, CMP, LIPID ####[facility] [address] [place] [address] [address]Dr. Mary Ellen RolonALP [Catalytic activity/Vol]77 U/YOxzebe87-008LblVeterans Health AdministrationComment on above: Performed By: #### TSH, FT3, T4, CMP, LIPID ####[facility] [address] [address]Dr. Yilan ChangALT [Catalytic activity/Vol] 22 U/CCaoaup94-93Tsr [facility] HospitalComment on above:Performed By: #### TSH, FT3, T4, CMP, LIPID ####[facility] [address] [address]Dr. Yisreekanth ChangAnion gap [Moles/Vol]11.7 mmol/LNormalThe [facility] HospitalComment on above:Performed By: #### TSH, FT3, T4, CMP, LIPID ####[facility] [address] [place] [address]Dr. Yilan ChangAST [Catalytic activity/Vol]12 U/LCritically lvp75-77Jhn [facility] HospitalComment on above:Performed By: #### TSH, FT3, T4, CMP, LIPID ####[facility] [address] [place], [place] [address]Dr. Yilan ChangBilirubin [Mass/Vol]0.3 mg/dLNormal0.2-1.0The [facility] Comment on above:Performed By: #### TSH, FT3, T4, CMP, LIPID ####[facility] Gjfrv[address] [place], [place] [address]Dr. Yisreekanth Rolon Calcium [Mass/Vol]8.6 mg/dLNormal8.5-10.1The [facility] HospitalComment on above: Performed By: #### TSH, FT3, T4, CMP, LIPID ####[facility] Nradv[address] [place], [place] [address]Dr. Yilan ChangChloride [Moles/Vol]103 mmol/YHaqjht30-332Vup [facility] HospitalComment on above:Performed By: #### TSH, FT3, T4, CMP, LIPID ####[facility] [address] [address]Dr. Yilan ChangCO2 [Moles/Vol]27.3 mmol/XSyapsw43.0-32.0The [facility] HospitalComment on above:Performed By: #### TSH, FT3, T4, CMP, LIPID ####[facility] [address]we[address] [address]Dr. Yilan ChangCreatinine [Mass/Vol]0.67 mg/dLNormal0.55-1.02The [facility] Comment on above:Performed By: #### TSH, FT3, T4, CMP, LIPID ####[facility] [address] [place] [address]Dr. Yilan ChangEGFR- AF CYMRO>60Normal>=60The [facility] HospitalComment on above:Performed By: #### TSH, FT3, T4, CMP, LIPID ####[facility] Dfnvyreoz[address] [place], [place] [address]Dr. Yilan ChangEGFR-NON AF CYMRO>60Normal>=60The [facility] HospitalComment on above:Performed By: #### TSH, FT3, T4, CMP, LIPID ####[facility] Knhwjxzsyh[address] [place], [place] [address]Dr. Yilan ChangGlobulin (S) [Mass/Vol]3.3 g/dLNormalThe [facility] HospitalComment on above:Performed By: #### TSH, FT3, T4, CMP, LIPID ####[facility] Znrusxqtoq[address] [place], [place] [address]Dr. Yilan ChangGlucose [Mass/Vol]166 mg/dLCritically ivfb39-241Lcp [facility] HospitalComment on above: Performed By: #### TSH, FT3, T4, CMP, LIPID ####[facility] Oshyct[address] [place], [place] [address]Dr. Yilan ChangPotassium [Moles/Vol]4.0 mmol/LNormal3.5-5.1The [facility] HospitalComment on above:Performed By: #### TSH, FT3, T4, CMP, LIPID ####[facility] [address]kzx[address] [place], [place] [address]Dr. Yilan ChangProtein [Mass/Vol]6.9 g/dLNormal6.4-8.2The [facility] HospitalComment on above:Performed By: #### TSH, FT3, T4, CMP, LIPID ####[facility] [address] [place] [id number]. Mary Ellen GonzalesSodium [Moles/Vol]138 mmol/UFxjleg060-536Kkc [facility] HospitalComment on above:Performed By: #### TSH, FT3, T4, CMP, LIPID ####[facility] Rxilf[address]aqj[address] [place] [address]Dr. Mary Ellen ChangUrea nitrogen [Mass/Vol]12.0 mg/dLNormal7.0-18.0The [facility] HospitalComment on above: Performed By: #### TSH, FT3, T4, CMP, LIPID ####[facility] [address] [place] [address]Dr. Ginasreekanth ChangUrea nitrogen/Creatinine [Mass ratio]17.9 mg/mgNormalThe [facility] HospitalComment on above:Performed By: #### TSH, FT3, T4, CMP, LIPID ####[facility] [address]sw[address]dt[address] [place] [address]Dr. Mary Ellen RolonT4on 02-11-4597X2 [Mass/Vol]7.00 ug/dL Normal4.80-13.90The [facility] HospitalComment on above:Performed By: #### TSH, FT3, T4, CMP, LIPID ####[facility] [address] [place] [address] [address]Dr. Mary Ellen RolonTSHon 66-00-5268FNY3.041 uIU/mLNormal0.358-3.740 The [facility] HospitalComment on above:Performed By: #### FT4, VITAD #### [facility] [address] [address] [address] Mary Ellen CHOWDHURY WO CONon 37-75-2108GY LUCIANA WO CONEXAMINATION: CT CSPINE WO CON HISTORY: This is a 71-year-old [...] Electronically authenticated by: BERKLEY GALINDO Date: 2022-02-01 17:23[facility] HEAD WO CONon [id number] HEAD WO CONEXAMINATION: CT HEAD WO CON HISTORY: This is [...] Electronically authenticated by: BERKLEY GALINDO Date: 2022-02-01 17:[address] [place], [place] [address]XR HIP RT 2 3V W PELVISon 04-19-3286HD HIP RT 2 3V W PELVIS EXAM: [...] Electronically authenticated by: MALAIKA NORTH Date: 2022-02-01 17:49[facility]imaXR HUMERUS RT MIN 2 Von 61-21-7923HV HUMERUS RT MIN 2 VEXAM: XR SHOULDER RT 2V or >, XR [...] Electronically authenticated by: MALAIKA NORTH Date: 2022-02-01 17:47[facility] LimaXR KNEE BETTYE 4V or >on 34-80-7703GK KNEE BETTYE 4V or >EXAMINATION: XR KNEE BETTYE 4V or > HISTORY: [...] Electronically authenticated by: MEME MONTENEGRO Date: 2021-10-19 16:39[facility]imaXR RIBS RT PA Juliet 77-86-0486CB RIBS RT PA CHEXAMINATION: XR RIBS RT PA CH HISTORY: Falling [...] Electronically authenticated by: MEME MONTENEGRO Date: 2021-10-19 16:41[facility] AUTO DIFFon [id number] #0.0 103/ulNormal0.0-0.1The [facility] HospitalComment on above:Performed By: #### CBC ####[facility] Palclminxx[address] [place], [place] [address]Dr.Ginasreekanth ChangBasophils/100 WBC (Bld)0.4 %Normal0.2-2.0The [facility] HospitalComment on above:Performed By: #### CBC ####[facility] Basgyhybcc[address] [place], [place] [address]Dr.Ginalan ChangEO #0.5 103/ulNormal0.0-0.7The [facility] HospitalComment on above:Performed By: #### CBC ####[facility] Habbyqlzme[address] [place], [place] [address]Dr.Mary Ellen ChangEosinophils/100 WBC (Bld)6.6 %Normal 0.9-7.0The [facility] HospitalComment on above:Performed By: #### CBC ####[facility] Eykczumapt[address] [place], [place] [address]Dr.Mary Ellen Rolon Erythrocyte distribution width (RBC) [Ratio]13.9 %Urkrye03.0-15.0The [facility] HospitalComment on above:Performed By: #### CBC ####[facility] Pdwxkiiuib[address] [place], [place] [address]Dr.Mary Ellen RolonHematocrit (Bld) [Volume fraction]42.6 %Hkjmne87.0-48.0The [facility] HospitalComment on above:Performed By: #### CBC ####[facility] Rzeygjkdtg[address] [place], [place] [address]Dr.Mary Ellen ChangHemoglobin (Bld) [Mass/Vol]13.5 g/dL Effexj83.0-16.0The [facility] HospitalComment on above:Performed By: #### CBC ####[facility] Yovizervng[address] [place], [place] [address]Dr. Mary Ellen RolonIG #0.04 10e3/ulCritically high0.00-0.03The [facility] HospitalComment on above:Performed By: #### CBC ####[facility] Ezbhrwmaln[address] [place], [place] [address]Dr.Mary Ellen RolonIG %0.5 %Normal0.0-0.5The [facility] HospitalComment on above:Performed By: #### CBC ####[facility] Bfpqfcmigg[address] [place], [place] [address]Dr.Mary Ellen CraigH #2.2 103/ulNormal1.2-3.8The [facility] HospitalComment on above:Performed By: #### CBC ####[facility] Ypayqquahb[address] [place], [place] [address]Dr. Mary Ellen Craighocytes/100 WBC (Bld)26.9 %Cppgye75.5-60.0The [facility] Comment on above:Performed By: #### CBC ####[facility] Tcutxnfwhs0[address] [place], [place] [address]Dr.Mary Ellen RolonMANUAL DIFF REQNONormalThe [facility] HospitalComment on above:Performed By: #### CBC ####[facility] Dofiqoqari13[address] [place], [place] [address]Dr.Mary Ellen RolonMATHER [facility] (RBC) [Entitic mass]29.2 okVhwqow51.7-34.0The [facility] HospitalComment on above: Performed By: #### CBC ####[facility] Lgcmjeybkh[address] [place], [place] [address]Dr.Mary Ellen RolonHC (RBC) [Mass/Vol]31.7 g/dLNormal 29.9-35.2The [facility] HospitalComment on above:Performed By: #### CBC ####[facility] Levbshgdip[address] [place], [place] [address]Dr. Mary Ellen RolonV (RBC) [Entitic vol]92.0 wOFmfavj57.0-99.0The [facility] Comment on above:Performed By: #### CBC ####[facility] Assnnifjzm[address] [place], [place] [address]Dr.Mary Ellen RolonEDWIGEO #0.7 103/ulNormal0.3-0.8 The [facility]ville HospitalComment on above:Performed By: #### CBC ####[facility] Jgtwklvavr[address] [place], [place] [address]Dr.Mary Ellen Rolon Monocytes/100 WBC (Bld)8.1 %Normal1.7-12.0The [facility] HospitalComment on above: Performed By: #### CBC ####[facility] Wqiassiyfu6[address] [place], [place] [address]Dr.Mary Ellen CedilloUT #4.7 103/ulNormal1.4-6.5The [facility]ville HospitalComment on above:Performed By: #### CBC ####[facility] Ywvwnfculx[address] [place], [place] [address]Dr.Mary Ellen RolonNeutrophils/100 WBC (Bld)57.5 %Inokte70.0-75.0The [facility]ville HospitalComment on above:Performed By: #### CBC ####[facility] Kvmafjhjdd[address] [place], [place] [address]Dr.Mary Ellen RolonPlatelet mean volume (Bld) [Entitic vol]9.1 fLCritically low 9.5-13.5The [facility] HospitalComment on above:Performed By: #### CBC ####[facility] Sdfxojdpom[address] [place], [place] [address]Dr. Mary Ellen RolonPLT306 103/mcCtpkvm756-412Pnu [facility] HospitalComment on above: Performed By: #### CBC ####[facility] Qdbcmnvkre[address] [place], [place] [address]DrBrett RolonRBC4.63 106/ulNormal4.20-5.40The [facility] HospitalComment on above:Performed By: #### CBC ####[facility] Cywegylero[address] [place], [place] [address]DrBrett RolonWBC8.2 103/ul Normal4.0-11.0The [facility] HospitalComment on above:Performed By: #### CBC ####[facility] Hz[address]ogbgvfj[address] [place] [address]Dr. Mary Ellen RolonFREE T3on 82-50-7773UQKN T33.32 pg/mlLNormal2.77-5.27The [facility] HospitalComment on above:Performed By: #### TSH, FT3, CMP, LIPID #### [facility] [address] [address] [address] Mary Ellen Prado T4on 92-86-9422Oilc T4 [Mass/Vol]1.12 ng/dLNormal0.78-2.19 The [facility] HospitalComment on above:Performed By: #### FT4, VITAD #### [facility] [address] [address] [address] Mary Ellen RolonGLYCOHEMOGLOBIN A1Con 24-06-2329YHK RECOMMENDATIONADA THERAPEUTIC TARGET 6.0 - 7.0 ACTION SUGGESTED > 7.0NoCincinnati VA Medical CenterComment on above:Performed By: #### A1C ####[facility] [address]ucmp[address] [place] [address]DrBrett RolonGlucose [Mass/Vol]137 mg/dLNoCincinnati VA Medical CenterComcorewell health blodgett hospital on above:Performed By: #### A1C ####[facility] [address]jnfe[address] [place] [address]DrBrett RolonHbA1c (Bld) [Mass fraction]6.4 %Critically high<=6.0The [facility] Private Hospitalment on above: Performed By: #### A1C ####[facility] [address]xxvutj[address] [address]Dr.Yilan RolonLIPID PROFILEon 48-92-3691QXIC-HDL RATIO NORMSEE BELOWKindred Hospital LimaComment on above:Result Comment: 3.3 - 4.4 LOW RISK 4.4 - 7.1 AVERAGE RISK 7.1 - 11.0 MODERATE RISK >11.0 HIGH RISK Performed By: #### TSH, FT3, CMP, LIPID #### [facility] [address] [address] [address] Mary Ellen RolonCholesterol [Mass/Vol]142 mg/dLNormal<=200[facility] Comment on above:Performed By: #### TSH, FT3, CMP, LIPID #### [facility] [address] [address] [address] Mary Ellen RolonCholesterol in HDL [Mass/Vol]49 mg/dLKindred Hospital Lima Comment on above:Performed By: #### TSH, FT3, CMP, LIPID #### [facility] [address] [address] [address] Mary Ellen RolonCholesterol in LDL [Mass/Vol]65.6 mg/dLKindred Hospital LimaComment on above:Performed By: #### TSH, FT3, CMP, LIPID #### [facility] [address] [address] [address] Mary Ellen Moeestercourtney.total/Cholesterol in HDL [Mass ratio]2.9 {ratio} NormalVeterans Health AdministrationComment on above:Performed By: #### TSH, FT3, CMP, LIPID #### [facility] [address] [address] [address] Mary Ellen Solano NORMAL> or = 60 mg/dl - LOW CARDIOVASCULAR RISK <40 mg/dl - HIGH CARDIOVASCULAR RISKKindred Hospital LimaComment on above:Performed By: #### TSH, FT3, CMP, LIPID #### [facility] [address] [address] [address] Mary Ellen RolonLDL CALC NORMALSEE BELOWKindred Hospital LimaComment on above:Result Comment: <100 mg/dl OPTIMAL 100 - 129 mg/dl NEAR OR ABOVE OPTIMAL 130 - 159 mg/dl BORDERLINE HIGH 160 - 189 mg/dl HIGH >190 mg/dl VERY HIGH Performed By: #### TSH, FT3, CMP, LIPID #### [facility] [address] [place] [address] Dr. Mary Ellen RolonTriglyceride [Mass/Vol]137 mg/dLNormal<=150[facility] Comment on above:Performed By: #### TSH, FT3, CMP, LIPID #### [facility] [address] [address] [address] Mary Ellen JackmanLDL CALC27.4 mg/dLNoCincinnati VA Medical CenterComment on above: Performed By: #### TSH, FT3, CMP, LIPID #### [facility] [address] [address] [address] Mary Ellen BiggsALJalyn CREAT RATIO RANDOMon 19-11-8281zFVV9.7 mg/LNormal<=30.0 The [facility] HospitalComment on above:Performed By: #### FT4, VITAD #### [facility] [address] [place] [address] Dr. Mary Ellen Dunlap CR RATIO13.1 mg/gNormal0.0-29.9The [facility] HospitalComment on above:Performed By: #### FT4, VITAD #### [facility] [address] [address] [address] Mary Ellen Dunlap CR RATIO RANGESEE BELOWNoCincinnati VA Medical CenterComment on above:Result Comment: NO MICROALBUMINURIA 0-29 MG/G CLINICAL MICROALBUMINURIA 30-300 MG/G MACROALBUMINURIA >300 MG/GPerformed By: #### FT4, VITAD #### [facility] [address] [address] [address] Mary Ellen Salazar ZRDJX647.89 mg/dFAqcupf45.00-300.00The [facility] Comment on above:Performed By: #### FT4, VITAD #### [facility] [address] [address] [address] Mary Ellen RolonPROF 14(COMP METB)on 39-96-1507Vjiakca [Mass/Vol]3.5 g/dLNormal 3.5-5.0The [facility] HospitalComment on above:Performed By: #### TSH, FT3, CMP, LIPID #### [facility] [address] [place] [address] Dr. Mary Ellen RolonAlbumin/Globulin [Mass ratio]1.1 {ratio}NormalThe [facility] HospitalComment on above:Performed By: #### TSH, FT3, CMP, LIPID #### [facility] [address] [address] [address] Mary Ellen Gilliam [Catalytic activity/Vol]79 U/ASdotik84-976Itk [facility] HospitalComment on above:Performed By: #### TSH, FT3, CMP, LIPID #### [facility] [address] [place] [address] Dr. Mary Ellen Cabral [Catalytic activity/Vol]23 U/LNormal9-52[facility] Comment on above:Performed By: #### TSH, FT3, CMP, LIPID #### [facility] [address] [place] [address] Dr. Mary Ellen Krishnamurthy gap [Moles/Vol]11.7 mmol/LNormalVeterans Health Administration Comment on above:Performed By: #### TSH, FT3, CMP, LIPID #### [facility] [address] [place] [address] Dr. Mary Ellen Red [Catalytic activity/Vol]11 U/LCritically gfy18-13Sfd [facility] HospitalComment on above:Performed By: #### TSH, FT3, CMP, LIPID #### [facility] [address] [place] [address] Dr. Mary Ellen RolonBilirubin [Mass/Vol]0.4 mg/dLNormal0.2-1.3TClermont County Hospital Comment on above:Performed By: #### TSH, FT3, CMP, LIPID #### [facility] [address] [place] [address] Dr. Mary Ellen RolonCalcium [Mass/Vol]8.6 mg/dLNormal8.4-10.2[facility] Comment on above:Performed By: #### TSH, FT3, CMP, LIPID #### [facility] [address] [place] [address] Dr. Mary Ellen RolonChloride [Moles/Vol]104 mmol/GDfqnrg53-826XsbVeterans Health Administration Comment on above:Performed By: #### TSH, FT3, CMP, LIPID #### [facility] [address] [address] [address] Mary Ellen RolonCO2 [Moles/Vol]28.3 mmol/CKdotgo97.0-30.0The [facility] Comment on above:Performed By: #### TSH, FT3, CMP, LIPID #### [facility] [address] [address] [address] Mary Ellen RolonCreatinine [Mass/Vol]0.65 mg/dLNormal0.52-1.04[facility] AdministrationComment on above:Performed By: #### TSH, FT3, CMP, LIPID #### [facility] [address] [address] [address] Mary Ellen LeGFR-AF CYMRO>60Normal>=60The [facility] HospitalComment on above:Performed By: #### TSH, FT3, CMP, LIPID #### [facility] [address] [place] [address] Dr. Mary Ellen LeGFR-NON AF CYMRO>60Normal>=60The [facility] HospitalComment on above:Performed By: #### TSH, FT3, CMP, LIPID #### [facility] [address] [address] [address] Mary Ellen RolonGlobulin (S) [Mass/Vol]3.3 g/dLNormalThe [facility] HospitalComment on above:Performed By: #### TSH, FT3, CMP, LIPID #### [facility] [address] [address] [address] Mary Ellen RolonGlucose [Mass/Vol]138 mg/dLCritically uypb15-942Fsf [facility] Hospitalment on above:Performed By: #### TSH, FT3, CMP, LIPID #### [facility] [address] [address] [address] Mary Ellen RolonPotassium [Moles/Vol]4.0 mmol/LNormal3.4-5.0The [facility] Comment on above:Performed By: #### TSH, FT3, CMP, LIPID #### [facility] [address] [place] [address] Dr. Mary Ellen RolonProtein [Mass/Vol]6.8 g/dLNormal6.1-8.2The [facility] Comment on above:Performed By: #### TSH, FT3, CMP, LIPID #### [facility] [address] [address] [address] Mary Ellen RolonSodium [Moles/Vol]140 mmol/LClrraf348-715XqiVeterans Health Administration Comment on above:Performed By: #### TSH, FT3, CMP, LIPID #### [facility] [address] [address] [address] Mary Ellen RolonUrea nitrogen [Mass/Vol]12.0 mg/dLNormal7.0-17.0The [facility] HospitalComment on above:Performed By: #### TSH, FT3, CMP, LIPID #### [facility] [address] [place] [address] Dr. Mary Ellen Ibarar nitrogen/Creatinine [Mass ratio]18.5 mg/mgNoCincinnati VA Medical CenterComment on above:Performed By: #### TSH, FT3, CMP, LIPID #### [facility] [address] [place] [address] Dr. Mary Ellen Han 32-89-1234QKD3.209 uIU/mLCritically low0.470-4.680The [facility] HospitalComment on above:Performed By: #### TSH, FT3, CMP, LIPID #### [facility] [address] [place] [address] Dr. Mary Ellen Lui RANGES BELOWNoCincinnati VA Medical CenterComment on above: Result Comment: <0.34 UIU/ml HYPERTHYROID 0.34-5.60 UIU/ml EUTHYROID >5.60 UIU/ml HYPOTHYROIDPerformed By: #### TSH, FT3, CMP, LIPID #### [facility] [address] [place] [address] Dr. Mary Ellen RolonVITAMIN D 25 OHon 94-05-1974CWX D 25-OH61.5 ng/mLNormalThe [facility] HospitalComment on above:Performed By: #### FT4, VITAD #### [facility] [address] [address] [address] Mary Ellen [facility] HospitalComment on above: Result Comment: <20 ng/mL Vit D deficient 20 - <30 ng/mL Vit D insufficient 30 - 100 ng/mL Vit D sufficient >100 ng/mL Potential ToxicityPerformed By: #### FT4, VITAD #### [facility] [address] [address] [address] Mary Ellen Rolon Vital Signs Date TimeVital SignValuePerforming DrcfbokjzArjfrawe36-54-1244 14:10-0400Body mass index (BMI) [Ratio]26.15 kg/c9Bepdjj Workman PA Work Phone: [facility] HospitalPqxejrsrfg68-08-3625 14:10-0400Body fsgryp49.48 kgSumm Workman PA Work Phone: [facility] HospitalSxdzqycmrw48-92-9396 14:10-0400Diastolic blood ihxdjlmv87 mm[Hg]Summer Workman PA Work Phone: [facility] HospitalSszjowvulk40-89-9650 14:10-0400Heart rate83 /min Summer Workman PA Work Phone: [facility] HospitalJkshctmqgr44-32-9133 14:10-4461BuV7% (BldA) [Mass fraction]95 %Summer Workman PA Work Phone: [facility] HospitalWjyrnrjlxt85-03-5340 14:10-0400Systolic blood ufloywcz342 mm[Hg]Summer Workman PA Work Phone: [facility] HospitalEmcooycldo33-46-6493 14:51-0400Diastolic blood tmmfwbef73 mm[Hg]Jean Pierre Kim DO Work Phone: [facility]08-13-2025 14:51-0400 Systolic blood epfcqbfi853 mm[Hg]Jean Pierre Kim DO Work Phone: [facility]06-05-2025 10:42-0400 Body saxxhu957.6 cmJejenni Kim DO Work Phone: [phone] [place], [place] [address]Fvbqzjognp62-38-6700 10:42-0400Body mass index (BMI) [Ratio]26.07 kg/l7LusgupyJean Pierre Kim DO Work Phone: [phone] HospitalJvkcewnsdb72-36-7680 10:42-0400Body rxubhn31.26 kgJean Pierre Kim DO Work Phone: [facility] HospitalEaaeygktdb84-86-9361 10:42-0400Heart rate86 /min Jean Pierre Kim DO Work Phone: [address] [place], [place] [address]Uswkgnwwmg26-83-4455 10:42-7392GrR2% (BldA) [Mass fraction]95 %Jean Pierre Kim DO Work Phone: [phone] [place], [place] [address]Fjmxhoxtim69-62-4706 15:06-0400Diastolic blood furxusql38 mm[Hg]Rekha Didion YARD CLEANER Work Phone: [address] [place], [place] [address]Gepaswehxt86-76-9339 15:06-0400Heart rate66 /min Rekha Didion [employer] Work Phone: 1([phone] [place], [place] [id number] 15:06-0400Respiratory rate16 /minJessica Didion YARD CLEANER Work Phone: [id number] 15:06-2149DoW7% (BldA) [Mass fraction]97 %Rekha Didion Y[employer] CLE[employer]ER Work Phone: [facility] [id number] 15:06-0400Systolic blood mm[Hg]Rekha Didion [employer]ARD CLE[employer]ER Work Phone: 1(404)[facility] [place], [place] [id number] 11:35-0400Diastolic blood mm[Hg]Jean Pierrekhadijah Kim DO Work Phone: [facility]03-31-2025 11:35-0400 Heart rate70 /minJean Pierre Kenyonman DO Work Phone: [facility]03-31-2025 11:35-0400 Respiratory rate16 /minJean Pierre Julio DO Work Phone: 1([phone])[address] [place], [place] 7693503-31-2025 11:35-0400 SaO2% (BldA) [Mass fraction]95 %Jean Pierre Kim DO Work Phone: 2(021)[address] [place], [place] 7693503-31-2025 11:35-0400 Systolic blood mpbddzin359 mm[Hg]Jean Pierre Kim DO Work Phone: [phone])[address] [place], [place] 7693503-31-2025 10:35-0400 Body erlmexvjnvu89.1 [degF]Jean Pierre Kim DO Work Phone: 1(372)[address] [place], [place] 7693503-31-2025 10:35-0400 Inhaled oxygen flow rate6 L/minDeondrekellykhadijah Kim DO Work Phone: 1(615)[address] [place], [place] 7693503-31-2025 08:03-0400 Body xpmafo594.64 cmJejenni Julio DO Work Phone: 7(025)[address] [place], [place] 7693503-31-2025 08:03-0400 Body bjiwuf42 kgJekellykhadijah Kim DO Work Phone: 7(881)[address] [place], [place] [address]693503-05-2025 15:38-0500 Body tkizzi582.64 cmJekellykhadijah Kim DO Work Phone: 5(564)[address] [place], [place] 7693503-05-2025 15:38-0500 Body mass index (BMI) [Ratio]25.7 kg/q8ZesokmkJean Pierre Kenyonman DO Work Phone: 5(658)7-[address] [place], [place] 3917703-05-2025 15:38-0500 Body yrpgmi61.5 kgJejenni Kenyonman DO Work Phone: 1(147)1-[address] [place], [place] 3917702-27-2025 10:15-0500 Body mass index (BMI) [Ratio]25.82 kg/t9UhkfyhbJean Pierre Kenyonman DO Work Phone: 9([phone])0-[address] [place], [place] [address]Epjjurifqa42-06-1246 10:15-0500Body .58 kgJejenni Kim DO Work Phone: 2(468)8-[address] [place], [place] [address]Dtrkwvlfkf81-95-7763 10:15-0500Diastolic blood raftzibs05 mm[Hg]Jean Pierre Kim DO Work Phone: [facility]Tadgrehxyh97-08-5522 10:15-0500Heart olwl604 /min JeanP ierre Kim DO Work Phone: [facility] HospitalNdwhezvtca59-15-4447 10:15-4332IxM7% (BldA) [Mass fraction]97 %Jean Pierre Kim DO Work Phone: [facility] HospitalVpzxepjnsp49-08-8922 10:15-0500Systolic blood zpztmijn482 mm[Hg]Jean Pierre Kim DO Work Phone: [facility] HospitalTcldyzsyde65-31-0075 10:03-0500Body mass index (BMI) [Ratio]25.5 kg/m0Xxohjgmjenni Kim DO Work Phone: [facility] HospitalYzpgwgtkar53-17-9980 10:03-0500Body vdsytg60.67 kgJejenni Kim DO Work Phone: [place] [address]Zkrqimdqkw08-27-3306 10:03-0500Diastolic blood cggbxtbu99 mm[Hg]Jean Pierre Kim DO Work Phone: [facility] HospitalVwoiumkayb48-07-5730 10:03-0500Heart rate85 /min Jean Pierre Kim DO Work Phone: [facility] HospitalUvhdairyot53-34-1067 10:03-8535CqL9% (BldA) [Mass fraction]95 %Jean Pierre Kim DO Work Phone: [place] [address]Fsxktdbxbq28-29-1763 10:03-0500Systolic blood oremaapj138 mm[Hg]Jean Pierre Kim DO Work Phone: [facility] HospitalMktthyllkb45-45-1087 10:41-0500Body ysqkgo401.6 cmMicmehul Oliva YARD CLEANER Work Phone: noColumb[facility] HospitalIddkqoieqm79-82-0268 10:41-0500Body mass index (BMI) [Ratio]25.18 kg/i9GpvxczaJulio Oliva YARD CLEANER Work Phone: noColumb[facility] HospitalIjwchbcqcf52-10-3099 10:41-0500Body lrbuug10.76 kgMicmehul Oliva YARD CLEANER Work Phone: [facility] HospitalZmeotpwtvv13-90-6454 10:41-0500Diastolic blood tlbuldbe71 mm[Hg]Julio Oliva YARD CLEANER Work Phone: noColumb[facility] HospitalQbgklywsiq42-00-8606 10:41-0500Heart rate85 /min Julio Oliva YARD CLEANER Work Phone: noColumb[facility] HospitalUtgkkgvigz37-73-0563 10:41-9751OsS7% (BldA) [Mass fraction]95 %Julio Oliva YARD CLEANER Work Phone: noColumbia [facility] HospitalUqcqljqyir95-84-0159 10:41-0500Systolic blood xzssfyko162 mm[Hg]Julio Oliva YARD CLEANER Work Phone: noColumbia [facility] HospitalSmtmejzykl47-18-1926 11:24-0500Body .64 cm[facility]01-[facility] 11:24-0500Body mass index (BMI) [Ratio]25.8 kg/w6IsgrcvxuoThe [facility]01-16-2025 11:24-0500Body .57 kg[facility]01-16-2025 11:24-0500Diastolic blood lelndkcz48 mm[Hg][facility]01-16-2025 11:24-0500 Heart rate83 /minThe [facility]01-16-2025 11:24-3547GtX2% (BldA) [Mass fraction]98 %[facility]01-16-2025 11:24-0500 Systolic blood xsdiqjlw750 mm[Hg][facility]10-04-2024 10:58-0400Body mass index (BMI) [Ratio]25.82 kg/n9QjlsktzJean Pierre Kim DO Work Phone: [facility] HospitalJddhifeolo16-72-2294 10:58-0400Body ucsumz43.58 kgJean Pierre Kim DO Work Phone: noColumb[facility] HospitalFebnwdqbme63-18-4379 10:58-0400Diastolic blood mm[Hg]Jean Pierre Kim DO Work Phone: [facility] HospitalOpaglhsmvv54-06-8046 10:58-0400Heart rate81 /min Jean Pierre Kim DO Work Phone: noColumb[facility] HospitalJgswriupgs53-74-0166 10:58-8984VkO3% (BldA) [Mass fraction]97 %Jean Pierre Kim DO Work Phone: noColumb[facility] HospitalGxzrwfrwrc42-55-2331 10:58-0400Systolic blood ozouymrw568 mm[Hg]Jean Pierre Kim DO Work Phone: [facility] Xndifabjin15-38-5163 10:20-0500Body sdtemt674.6 cmMattedson Ang PA Work Phone: noColumbia Regional HospitalGatdqdkwoc39-28-6339 10:20-0500Body mass index (BMI) [Ratio]25.18 kg/p5Scgdutw Ang PA Work Phone: noColumbia Regional HospitalIhwnlymrvg55-21-4048 10:20-0500Body syfowe42.76 kgMattedson Ang PA Work Phone: noNV Mulkvrjbtv35-81-2119 11:15-0500Body beaibr835.64 cmMeme Gong Other [employer] [facility] Other 2023 11:15-0500Body mass index (BMI) [Ratio] 26.14 kg/l2PwjiqMeme Gong Other [employer] [employer] Other 2023 11:15-0500Body eqcsqa34.48 kgMeme Gong Other no[facility] [employer] Other 2023 11:15-0500Diastolic blood fwuqcgbi04 mm[Hg] Meme Gong Other [employer] [facility] Other 2023 11:15-7679MxL4% (BldA) [Mass fraction]96 % Meme Gong Other [employer] [facility] Other 2023 11:15-0500Systolic blood ukgljink046 mm[Hg] Meme Gong Other [facility] Other 12-08-2022 10:00-0500Body bamtbg247.64 cmThomas Olexa Other nort [facility] Other 12-08-2022 10:00-0500Body mass index (BMI) [Ratio] 29.37 kg/e6Sqaxdn Olexa Other [facility] Other 12-08-2022 10:00-0500Body .56 kgThomas Olexa Other noThe [employer] Other Encounters Encounter DateEncounter TypeCare ProviderFacilityStart: 04-06-2025 End: 49-30-1462Sankei outpatient visit 15 minutesSuanders Velazco PA Work Phone: [facility] [place] [facility] MedicineComment on above:Acute eczematoid otitis externa of both ears (Primary Dx)Start: 04-06-2025 End: 78-36-3862brewsayfrpDNQKUZ M WORKMANNot AvailableStart: 03-02-2025 End: 65-47-6727fhuopqesegCtnfvbu Garman DO Work Phone: [facility] Work Phone: Start: 03-02-2025 End: 13-87-8891Yqxjwzw encounter procedureRobgokul Rebolledo MD-[facility] Work Phone: Start: 03-02-2025 End: 34-91-4357Pxclihv encounter procedureRobgokul Rebolledo MDCOX WALNUT LAWNlalo [place] OrthoStart: 03-02-2025 End: 01-79-4408pfigcjigpmGcvhduw Garman DO Work Phone: [facility] Work Phone: Start: 02-14-2025 End: 46-74-3069vsqqlhyzenQTPC Jayce Mcgraw AvailableStart: 01-05-2025 End: 89-49-6566Ousmvgy encounter procedureCojoby Salter MD-[facility] Work Phone: Start: 12-23-2024 End: 73-71-4073Rsojeh flowsKd Kim DO Work Phone: [facility] IMStart: 12-23-2024 End: 38-54-8055Arbzrv flowsKd Kim DO Work Phone: [facility] IMStart: 12-23-2024 End: 52-99-6369Dyygtj outpatient visit 40 minutesJejenni Kim DO Work Phone: [facility] IMComment on above:Type 2 diabetes mellitus with other specified complication, without long-term current use of insulin (Primary Dx); Postoperative hypothyroidism (CMS/HCC); Age related osteoporosis, unspecified pathological fracture presence (CMS/HCC); Primary osteoarthritis involving multiple joints; Primary hypertension (CMS/HCC); Irritable bowel syndrome with constipation; Amputation of right middle finger; Low vitamin D levelStart: 12-23-2024 End: 10-82-1666bsnamorfbrOVQMOIV A GARMANNot AvailableStart: 12-20-2024 End: 57-41-0711Qbtqsasuk Result EncounterMicheldelvis Oliva YARD CLEANER Work Phone: noms External Department UnsolicitedStart: 12-20-2024 End: 14-62-4702Bchkogcij Result EncounterMichele Chen Jonasos YARD CLEANER Work Phone: noms External Department UnsolicitedStart: 12-16-2024 End: 65-22-7947Cfevxw Tirso Green MD Work Phone: [facility] DERMStart: 12-16-2024 End: 61-46-7619Nskcqd Tirso Green MD Work Phone: noms SWS DERMStart: 12-16-2024 End: 27-25-0138Rrjiay outpatient visit 15 minutesFlorecita Green MD Work Phone: noms SWS DERMComment on above:Melanocytic nevus of trunk (Primary Dx); History of SCC (squamous cell carcinoma) of skin; Lichen planopilaris; Seborrheic keratosis; Lentigines; Actinic keratosis; Rash and other nonspecific skin eruptionStart: 12-16-2024 End: 41-66-8318nhazsltqfgSFKYA A PETITTINot AvailableStart: 12-14-2024 End: 83-57-1602pycyrudnyuXOLUOLZ A GARMANNot AvailableStart: 12-14-2024 End: 62-55-6217Ixmbat outpatient visit 10 minutesRekha Cornejo NP Work Phone: noms SWS IMComment on above:Pressure injury of buttock, stage 2, unspecified laterality (CMS/HCC) (Primary Dx)Start: 12-07-2024 End: 35-28-6843Jkxghk outpatient visit 25 minutesRekha Cornejo NP Work Phone: noms SWS IMComment on above:Pressure injury of buttock, stage 2, unspecified laterality (CMS/HCC) (Primary Dx); Acute non-recurrent pansinusitis; Side effect of medicationStart: 12-07-2024 End: 15-05-3476jahlcagtytXCJEUJT A GARMANNot AvailableStart: 11-24-2024 End: 81-66-5173chcglrprmxNknhgqh Garman DO Work Phone: [facility] Work Phone: Start: 11-24-2024 End: 41-83-8623Htfhjgp encounter procedureJean Pierre Kim DO Work Phone: [facility] Physician GroupCounts Include [facility] Work Phone: Start: 11-03-2024 End: 79-20-9425abumeekvnwBdfuqvz Garman DO Work Phone: [facility] Work Phone: Start: 11-03-2024 End: 42-43-8710Uyembtl encounter procedureJean Pierre Kim DO Work Phone: [facility] Physician [facility] Work Phone: Start: 10-27-2024 End: 34-33-7877wsuoakeywnHpcuyqe Garman DO Work Phone: [facility] Work Phone: Start: 10-27-2024 End: 58-66-4517Icgcenh encounter procedureJean Pierre Kim DO Work Phone: [facility] Physician [facility] Work Phone: Start: 10-25-2024 End: 92-18-0508rpuqzxzrkeJFUIRBV Chen JONASOSNot AvailableStart: 78-26-5398Orz- patient / Non-visitJean Pierre Kim DO Work Phone: [facility] Physician [facility] Work Phone: Start: 10-18-2024 End: 38-51-9291Euyuavfip to same day surgery centerJean Pierre Kim DO Work Phone: [facility] HospitalStart: 10-18-2024 End: 66-94-7277cerkkiikmlDjtiqug Garman DO Work Phone: [facility] Work Phone: Start: 10-04-2024 End: 45-59-7218Shxfjym encounter procedureJean Pierre Kim DO Work Phone: [facility] Yss-Rfr-Vkpjrtfq Testing Work Phone: Start: 10-04-2024 End: 99-28-9668nrwoxpbzbtXmucecr Garman DO Work Phone: [facility] Work Phone: Start: 40-95-7400Pcxlbbgwa for preprocedural laboratory examinationCojoby BullardUF Health Le[facility] Physician GroupStart: 09-29-2024 End: 58-14-2521gehwskrstrBZMGALHGabriele Benites AvailableStart: 09-22-2024 End: 02-02-3794Gwwkxbl encounter procedureJean Pierre Kim DO Work Phone: [facility] Work Phone: Start: 09-22-2024 End: 73-12-0595yxakcdoalyEfvomvw Julio DO Work Phone: [facility] Work Phone: Start: 09-16-2024 End: 76-97-4047Lieasz flowsheetJean Pierre Kenyonman DO Work Phone: [facility] IMStart: 09-16-2024 End: 40-89-0244Yjcuid flowsheetJean Pierre A Julio DO Work Phone: [facility] IMStart: 09-16-2024 End: 79-64-7426Ekgsii outpatient visit 15 minutesJean Pierre Kenyonman DO Work Phone: [facility] IMComment on above:Primary osteoarthritis of both knees (Primary Dx)Start: 09-16-2024 End: 42-87-3575xuednyegceGIUQCDX A GARMANNot AvailableStart: 09-08-2024 End: 35-31-5093Wxuznk flowsheetJean Pierre A Julio DO Work Phone: [facility] IMStart: 09-08-2024 End: 51-02-4284Wbihto flowsheetGerrey A Julio DO Work Phone: [facility] IMStart: 09-08-2024 End: 33-52-9831Tmfspk outpatient visit 15 minutesJean Pierre A Julio DO Work Phone: [facility] IMComment on above:Primary osteoarthritis of right knee (Primary Dx); Primary osteoarthritis of left knee; HerpesStart: 09-08-2024 End: 55-73-8901rkmeupvexzCISFGIM A GARMANNot AvailableStart: 08-30-2024 End: 75-35-0071dkwpdpzsuaYWRESYN L POULOSNot AvailableStart: 08-24-2024 End: 25-32-7910Wsyymq outpatient visit 25 minutesJulio Oliva YARD CLEANER Work Phone: noMS SWS IMComment on above:Age related osteoporosis, unspecified pathological fracture presence (CMS/HCC) (Primary Dx); Encounter for subsequent annual wellness visit (AWV) in Medicare patient; ACP (advance care planning); Major depressive disorder, single episode, severe without psychotic features (HCC) (CMS/HCC); Primary hypertension (CMS/HCC); Postoperative hypothyroidism (CMS/HCC); Gastroesophageal reflux disease, unspecified whether esophagitis present; Obstructive sleep apnea syndrome; Primary osteoarthritis involving multiple joints; Type 2 diabetes mellitus with other specified complication, without long-term current use of insulin (CMS/HCC); Irritable bowel syndrome with constipation; Postmenopausal; Encounter for screening mammogram for malignant neoplasm of breast; Mixed hyperlipidemia (CMS/HCC); Primary osteoarthritis of both kneesStart: 08-24-2024 End: 36-60-6653Ngszowh encounter procedureJulio Oliva YARD CLEANER Work Phone: [facility] Work Phone: Start: 08-24-2024 End: 68-76-9788moiatzjkeyTVGOWDI L POULOSNot AvailableStart: 08-17-2024 End: 14-60-3173Fzygpf CPowerjersey city medical center OT Work Phone: NOPB CI PTStart: 08-17-2024 End: 65-34-3421Jicwfe flowsheetCoComfyjersey city medical center OT Work Phone: noms CI PTStart: 08-17-2024 End: 67-63-9172asnmjbcokzLbbbigge Blacksjersey city medical center OT Work Phone: noms CI PTComment on above:Closed dislocation of interphalangeal joint of finger of left hand, subsequent encounter (Primary Dx); Open dislocation of phalanx of hand, subsequent encounterStart: 08-13-2024 End: 74-63-4562Wyziem flowsheetRhonda Rexroad OT Work Phone: noms CI PTStart: 08-13-2024 End: 99-58-0618Uhjsug flowsheetRhonda Rexroad OT Work Phone: noms CI PTStart: 08-13-2024 End: 43-40-7160tfojjbvanxQuwdbj Rexroad OT Work Phone: noMS CI PTComment on above:Closed dislocation of interphalangeal joint of finger of left hand, subsequent encounter (Primary Dx) Start: 08-10-2024 End: 99-48-7502Ljrhnb flowsheetRhonda Rexroad OT Work Phone: noMS CI PTStart: 08-10-2024 End: 04-05-7905Ytmujt flowsheetRhonda Rexroad OT Work Phone: noMS CI PTStart: 08-10-2024 End: 20-40-6015efzifggsqiGfdhbk Rexroad OT Work Phone: noms CI PTComment on above:Open dislocation of phalanx of hand, subsequent encounter (Primary Dx)Start: 08-06-2024 End: 31-25-9291vcxevqckozAyhjtm Rexroad OT Work Phone: noMS CI PTComment on above:Closed dislocation of interphalangeal joint of finger of left hand, subsequent encounter (Primary Dx); Open dislocation of phalanx of hand, subsequent encounterStart: 08-05-2024 End: 64-13-3465hoqhxsrgfxTclidwghiOhio State University [facility] Work Phone: Start: 08-05-2024 End: 50-59-9293Dkaansf encounter procedureNov[facility] Physician GroupMid[facility] Work Phone: Start: 78-59-8312fullwsvjnuDPFYNF SKIEUniProtestant Deaconess Hospitaltart: 07-30-2024 End: 16-30-2204Friawh flowsheetRhonda Rexroad OT Work Phone: noms CI PTStart: 07-30-2024 End: 38-75-0016Hbamsc flowsheetRhtorria Rexroad OT Work Phone: noms CI PTStart: 07-30-2024 End: 01-64-6905rthdkpkykcOlzvap Rexroad OT Work Phone: noms CI PTComment on above:Closed dislocation of interphalangeal joint of finger of left hand, subsequent encounter (Primary Dx) Start: 07-09-2024 End: 96-48-8088Fqhxmf flowsheetRhonda Rexroad OT Work Phone: noms CI PTStart: 07-09-2024 End: 23-29-3856Nbkzie flowsheetRhonda Rexroad OT Work Phone: noms CI PTStart: 07-09-2024 End: 25-50-2804sgllxjvhmpQauajk Rexroad OT Work Phone: noms CI PTComment on above:Closed dislocation of interphalangeal joint of finger of left hand, subsequent encounter (Primary Dx) Start: 07-06-2024 End: 06-09-6449Sstcof flowselmaComaninder Antony OT Work Phone: noms CI PTStart: 07-06-2024 End: 53-32-8361Btugjb flowsheetComaninder Antony OT Work Phone: noms CI PTStart: 07-06-2024 End: 28-71-4753almigdaodxHhfbpsfm Blackston OT Work Phone: noms CI PTComment on above:Closed dislocation of interphalangeal joint of finger of left hand, subsequent encounter (Primary Dx); Open dislocation of phalanx of hand, subsequent encounterStart: 07-02-2024 End: 68-27-3630Mnrdtk flowsheetRhonda Rexroad OT Work Phone: noms CI PTStart: 07-02-2024 End: 98-89-6346Jiylgh flowsPapoa Rexroad OT Work Phone: noms CI PTStart: 07-02-2024 End: 75-97-3727enxtnlywrnTjharq Eleuterioroad OT Work Phone: noms CI PTComment on above:Closed dislocation of interphalangeal joint of finger of left hand, subsequent encounter (Primary Dx) Start: 06-29-2024 End: 67-03-6218Gbmjlq Stu Antony OT Work Phone: noms CI PTStart: 06-29-2024 End: 98-81-6455Whkiuv Stu Antony OT Work Phone: noms CI PTStart: 06-29-2024 End: 21-58-2011xybinruqfnKposgyok Blackston OT Work Phone: noms CI PTComment on above:Closed dislocation of interphalangeal joint of finger of left hand, subsequent encounter (Primary Dx); Open dislocation of phalanx of hand, subsequent encounterStart: 06-22-2024 [facility] Centertart: 06-15-2024 End: 16-48-0427Tqhzan Stu Antony OT Work Phone: noms CI PTStart: 06-15-2024 End: 02-31-2860Zsgxbq Stu Antony OT Work Phone: noms CI PTStart: 06-15-2024 End: 11-04-5468tsixydnsfsAxijrgfa [place]ston OT Work Phone: noms CI PTComment on above:Closed dislocation of interphalangeal joint of finger of left hand, subsequent encounter (Primary Dx); Open dislocation of phalanx of hand, subsequent encounterStart: 06-01-2024 End: 90-10-4030Xxctkg Stu Antony OT Work Phone: noms CI PTStart: 06-01-2024 End: 34-22-8100Xooqjr Stu Antony OT Work Phone: NOMS CI PTStart: 05-28-2024 End: 73-30-3405Gfhtrc Stu Antony OT Work Phone: N[facility] CI PTStart: 05-28-2024 End: 84-46-2973Okirqz Stu Antony OT Work Phone: N[facility] CI PTStart: 05-28-2024 End: 64-21-8606xwivckqyvdVnlgaxtb Blackston OT Work Phone: N[facility] CI PTComment on above:Closed dislocation of interphalangeal joint of finger of left hand, subsequent encounter (Primary Dx) Start: 05-25-2024 End: 23-81-5297Pqosvq Stu Antony OT Work Phone: [facility] CI PTStart: 05-25-2024 End: 14-24-0852Kngbzl Stu Antony OT Work Phone: [facility] CI PTStart: 05-25-2024 End: 58-53-4962ccwgrleqygIzzufmes Blackston OT Work Phone: [facility] CI PTComment on above:Closed dislocation of interphalangeal joint of finger of left hand, subsequent encounter (Primary Dx); Open dislocation of phalanx of hand, subsequent encounterStart: 05-17-2024 End: 41-55-5982Czpcmminn encounterComaninder Antony OT Work Phone: N[facility] CI PTComment on above:OT (She had called and lm noting she is ready to re-do OT on her R finger in [place]. ); fu (Calledher back to inform a new referral is needed, per Alecia, re: sx. She said she will contact the referring provider and request referral to be faxed over. I told her I would call back lauren to schedule.)Start: 36-80-7706byckrwcusrPHIDCFUpper Valley Medical Centertart: 04-23-2024 End: 87-69-3509Iwmgqq outpatient visit 25 minutesJean Pierre Kim DO Work Phone: noms SWS IMComment on above:Age-related osteoporosis without current pathological fracture (CMS/HCC) (Primary Dx); Primary osteoarthritis involving multiple joints; Primary hypertension (CMS/HCC); Obstructive sleep apnea syndromeStart: 04-23-2024 End: 87-79-0268kozkonttcsTGXFIRU A GARMANNot AvailableStart: 04-20-2024 End: 04-99-3243Rcxktvzjd Result EncounterJean Pierre Kim DO Work Phone: noms External Department UnsolicitedStart: 04-20-2024 End: 63-28-1508Gazzljspa Result EncounterJean Pierre Kim DO Work Phone: noms External Department UnsolicitedStart: 04-14-2024 ambulatoryCleveland Clinic Union Hospitaltart: 04-08-2024 End: 51-32-6203xuvtkwmgtoKPMWZROHP H SMITHNot AvailableStart: 04-08-2024 End: 77-06-6634Qkcgzu outpatient visit 15 minutesAugusta Mcnair DPM Work Phone: noms [facility] PODIATRYComment on above:Type II diabetes mellitus with neurological manifestations ([facility]) (Primary Dx); Neuropathy; Corns and callosities; Hammer toes of both feetStart: 23-59-1110urdppnsugeSJFNLGCleveland Clinic Union Hospitaltart: 03-25-2024 End: 79-41-8659gnhocktedlBKHGFFNorwalk Memorial Hospitaltart: 03-25-2024 End: 53-07-0328Hxrmuadmu for preprocedural laboratory examinationMercy Health St. Rita's Medical Centertart: 96-50-9269tovvurzegqDNHXIKMercy Health St. Rita's Medical Centertart: 03-18-2024 End: 17-12-9818Okxnog Stu Antony OT Work Phone: noms SWS PTStart: 03-18-2024 End: 35-00-6527Evrian PassportParking OT Work Phone: noMS [facility] PTStart: 03-18-2024 End: 76-49-0886Vrxycvj encounter procedureCabridget Mcnair DPM Work Phone: noMS [facility] PODIATRYComment on above:Type II diabetes mellitus with neurological manifestations (CMS/HCC) (Primary Dx); Neuropathy; Corns and callosities; Hammer toes of both feetStart: 03-18-2024 End: 64-61-4011xeyhgfgpnsUrqstiuc Blackston OT Work Phone: noMS [facility] PTComment on above:Open dislocation of phalanx of hand, subsequent encounter (Primary Dx); Closed dislocation of interphalangeal joint of finger of left hand, subsequent encounterStart: 03-15-2024 End: 57-37-0078Hfdxig PassportParking OT Work Phone: noMS [facility] PTStart: 03-15-2024 End: 95-68-1726Sgivwm CPowerfaith OT Work Phone: noms [facility] PTStart: 03-15-2024 End: 68-55-2736kebbributsIgaamswd [place]ston OT Work Phone: noMS [facility] PTComment on above:Closed dislocation of interphalangeal joint of finger of left hand, subsequent encounter (Primary Dx); Open dislocation of phalanx of hand, subsequent encounterStart: 03-12-2024 End: 40-92-2091unasfanhnzEemrvxyi Blacksfaith OT Work Phone: noMS PTComment on above:Closed dislocation of interphalangeal joint of finger of left hand, subsequent encounter (Primary Dx); Open dislocation of phalanx of hand, subsequent encounterStart: 03-10-2024 End: 21-15-6178lrqeqypmtnYWCIUJ [facility] BREMERTONEUniProtestant Deaconess Hospitaltart: 03-05-2024 End: 33-97-2828Rttropwcc encounterMattedson Ang PA Work Phone: noms SWS ORTHOComment on above:PTStart: 02-25-2024 ambulatoryMARTIN SKIEUniversity North [facility] State [facility] Campustart: 02-09-2024 Evaluation and management of inpatientMARTIN St. Rita's Hospitaltart: 71-47-1497Ppcfwumrvb and management of inpatientWayne HealthCare Main Campustart: 88-52-3402Fblutlaye department patient visitKettering Healthtart: 89-66-0004Rwjvzanav department patient visitKettering Healthtart: 02-08-2024 End: 70-06-3497Zofmkdepee and management of inpatientMARTIN SKIEUniProtestant Deaconess Hospitaltart: 08-73-1934Rtwucd flowsCorinne Breen PT Work Phone: [facility] NM PTStart: 29-50-2338Uihviz flowsCorinne Breen PT Work Phone: [facility] NM PTStart: 09-04-2023 End: 02-33-0280jsjskftdwgBwcov B Ott PT Work Phone: [facility] NM PTComment on above:Sacroiliac joint pain (Primary Dx); Lumbar paraspinal muscle spasm; Lumbar radiculopathy, chronic; Idiopathic scoliosis of thoracolumbar regionStart: 09-01-2023 End: 94-78-3202ohnpkigunkVmadg B Ott PT Work Phone: [facility] NM PTComment on above:Lumbar paraspinal muscle spasm (Primary Dx); Sacroiliac joint pain; Lumbar radiculopathy, chronic; Idiopathic scoliosis of thoracolumbar regionStart: 33-73-4261Bcvexlsusan Breen PT Work Phone: [facility] NM PTStart: 55-78-3886Phvtbq flowsheetMeme Breen PT Work Phone: [facility] NM PTStart: 08-22-2023 End: 62-04-5383Errmqb outpatient visit 25 minutesJoel WALTON Work Phone: [facility] ORTHOPAEDICSComment on above:Acute left-sided low back pain without sciatica (Primary Dx); Sacroiliac joint pain; Other idiopathic scoliosis, thoracolumbar regionStart: 07-02-2023 End: 52-73-5971azyglhtnnmVybei Morris Other [facility] [employer] Other Start: 67-87-8567Pgzkjt outpatient visit 25 minutes [address] [facility] Medical OutPtStart: 07-02-2023 End: 03-88-1894Qmnbkha encounter procedureJoel WALTON Work Phone: noms HealthcareStart: 02-24-2023 End: 16-18-2160qadhpdigyoMF Jeffrey Garman Work Phone: [facility] Work Phone: Start: 02-24-2023 End: 57-83-0124Jwmbfqknnq RecurringDO Jean Pierre Kim Work Phone: [facility]-Physical Therapy [place] Work Phone: start: 01-03-2023 End: 53-96-1974dkznljzivgJPChrissy Kim Work Phone: [facility] Work Phone: Start: 01-03-2023 End: 76-23-4942Sfqbika encounter procedureDO Jean Pierre Kim Work Phone: [facility]-Electrodiagnostics Work Phone: Start: 75-10-6879meihgukmijVm. Chad A Zender Facility:[id number]: 48-65-1347Hntxpp outpatient visit 15 minutesThfeliz Srivastava OrthopedicsStart: 06-27-2022 End: 60-91-8694aqjbanwzytGX Jeffrey Garman Work Phone: [employer] Other Start: 06-27-2022 End: 61-80-0953Hhtaono encounter procedureDO Jean Pierre Kim Work Phone: [facility]Ray [place] [facility] Start: 06-18-2022 End: 13-23-9551qsnviwtjwgDG JEAN PIERRE Doughertycility:N7Rxvrs: 05-09-2022 End: 69-32-6015jhcggahemuGW Jean Pierre Kim Work Phone: [facility] Work Phone: Start: 05-09-2022 End: 61-00-8485Ummpzazelr RecurringDO Jean Pierre Kim Work Phone: [facility]-Physical Therapy [place]Start: 03-11-2022 End: 20-41-0268cnvymzgkovJogvnu Olexa Other [employer] Other Start: 27-50-4762Ffcsccvun for other preprocedural examinationThomas OlexaFPG [place] [facility]opedicsStart: 09-60-4130Egtlfl outpatient visit 25 minutesThomas OlexaFPG [place] OrthopedicsStart: 02-23-2022 End: 95-14-3657Cdaskda encounter procedureDO Jean Pierre Kim Work Phone: [facility]-MRI Main CampusStart: 02-19-2022 End: 69-31-3453smymgsylzuKncuof Olex[employer] Other no[employer] Other Start: 28-43-2115Sdlkoe outpatient visit 25 minutes Le OlexaFPG [place] OrthopedicsStart: 02-19-2022 End: 14-46-4165Flqntje encounter procedureDO Jean Pierre Kim Work Phone: [facility] [place] [facility] Start: 02-08-2022 End: 89-60-2987fmwyzbjngyYP JEAN PIERRE GARMANFacility:N5Wmxkh: 02-01-2022 End: 01-05-5465jrnmiltvlpAY JEAN PIERRE GARMANFacility:J1Rkbyy: 10-19-2021 End: 58-40-0048nbdyvbbyyvTY JEAN PIERRE GARMANFacility:L3Jmqfb: 08-09-2021 End: 15-72-9105amdneejhcgNN JEAN PIERRE KIMFacility:H1 Procedures DateProcedureProcedure DetailPerforming ClinicianStart: 79-46-6766Xtpsl X-ray of left hipJean Pierre Kim DO Work Phone: Start: 14-96-2651I-ray of left knee, four viewsJean Pierre Kim DO Work Phone: Start: 18-29-6361JLI HEMOGLOBIN P6NBydhusomehul Oliva [employer] Work Phone: Start: 05-68-8625RRR MICROALB CREAT RATIO RANDOM Juliojuma Oliva [employer] CLE[employer] Work Phone: Start: 50-80-6642NYHJJBKCKCR SKIN LESIONEmkhanh Green MD Work Phone: Start: 40-44-0566WieephsqkloAjtjljn Chantal [employer]ARD CLEANER Work Phone: Start: 93-13-9271Mvcjosafaz of finger of right hand Jean Pierre Kim DO Work Phone: Start: 78-00-3293Ggnyu X-ray of right handJean Pierre Kim DO Work Phone: Start: 38-12-1137FFK CBC WITH AUTO DIFFJean Pierre Aldo Kim DO Work Phone: Start: 91-25-9118HfgcdvlqzmdQjedalv Meyer PA Work Phone: Start: 75-69-0222Yxvak X-ray of right shoulderDO Jean Pierre Kim Work Phone: Start: 00-91-1555XNQ of right shoulderDO Jean Pierre Kim Work Phone: Start: 31-67-3754Ljivj X-ray of right clavicleDO Jean Pierre Kim Work Phone: Start: 02-38-8101AqzvjwttikoKwkdjxw Meyer PA Work Phone: Start: 13-74-7179Vtbnqoq of thyroidectomyHistory of thyroidectomyJoel WALTON Work Phone: Plan of Treatment DateCare ActivityDetailAuthorStart: 69-28-5897Imwyajetx for malignant neoplasm of colonNOMS HealthcareStart: 27-35-1443Cfamstjd screeningDiabetes: Retinopathy ScreeningNONV HealthcareStart: 12-15-2025 End: 62-02-1656Aptcotg encounter procedureNOMS SWS DERMStart: 10-25-2025 Screening for malignant neoplasm of breastMammogramNOMS HealthcareStart: 02-04-2026Medicare Annual Wellness (AWV)Medicare Annual Wellness (AWV)[facility] HealthcareStart: 06-30-2025 End: 23-41-7316Nzkitep encounter yctyencth34/11/2025 9:30 AM EST Office Visit [facility] Internal Medicine [address] [place] [address] [facility] Internal MedicineStart: 57-57-4800Ybahs screening for proteinDiabetes: Urine Protein ScreeningNONV HealthcareStart: 03-21-2025 Influenza vaccinationInfluenza Vaccine (#1)[facility] HealthcareStart: 03-99-4462Npyth X-ray of left hipXR hip LT min 2V(w/wo pelvis)*[facility]tart: 41-25-6424X-ray of left knee, four viewsXR knee LT 4V*[facility] CenterStart: 86-63-9781CD Hip - left 2 ViewsWadsworth-Rittman Hospitaltart: 71-13-1826KI Knee - left 4 ViewsWadsworth-Rittman Hospitaltart: 79-54-5016Bdiuo screening for proteinDiabetes: Urine Protein ScreeningBRIGHAM CITY [facility] HealthcareStart: 01-14-2025 End: 58-31-5085Wilfgga encounter qentwglfi65/27/2025 10:00 AM EDT Office Visit [facility] [address] [place] [address] LOMT SWS IMStart: 01-13-2025 End: 61-03-1697Mnugpem encounter hyzkfourc74/26/2025 10:35 AM EDT Office Visit [facility] [address] [place] [address] Florecita Green MD [address] [place] [address] [facility] DERMStart: 12-23-2024 End: 34-79-2400Bybbgoo encounter procedureNOMS M[facility] IMComment on above:Arrived Start: 12-16-2024 End: 67-46-3872Ibrmhhf encounter procedureNOMS SWS DERMComment on above:Arrived Start: 11-21-2024 End: 65-25-1448Siqoircmllhdv metabolic 2000 panel - Serum or PlasmaComprehensive metabolic panel Lab Routine Primary hypertension ([facility]) Type 2 diabetes mellitus with other specified complication, without long-term current use of insulin ([facility]) Expected: 11/21/2024, Expires: 02/21/2025NONV Healthcare Comment on above:Expected: 11/21/2024, Expires: 02/21/2025Start: 11-21-2024 End: 96-28-3318Zqdgvhsbgx a1c with eagHemoglobin a1c with eag Lab Routine Type 2 diabetes mellitus with other specified complication, without long-term current use of insulin ([facility]) Expected: 11/21/2024, Expires: 02/21/2025NONV HealthcareComment on above:Expected: 11/21/2024, Expires: 02/21/2025Start: 11-21-2024 End: 98-73-3195Lhfch 1996 panel - Serum or PlasmaLipid panel Lab Routine Mixed hyperlipidemia ([facility]/HCC) Expected: 11/21/2024, Expires: 02/21/2025NONV HealthcareComment on above:Expected: 11/21/2024, Expires: 02/21/2025Start: 11-21-2024 End: 42-15-6636Depmsecvrrod/Creatinine panel in random UrineMicroalbumin / creatinine urine ratio Lab Routine Type 2 diabetes mellitus with other specified complication, without long-term current use of insulin ([facility]) Expected: 11/21/2024, Expires: 02/21/2025NONV HealthcareComment on above:Expected: 11/21/2024, Expires: 02/21/2025Start: 53-10-1790Zyobedzsej A1c measurement Diabetes: Hemoglobin A2MHHNG HealthcareStart: 10-25-2024 End: 95-29-5470Ecnenrchproa / ancillary services managementNOST. [facility] DXAStart: 92-08-7082WtwiniavsWadsworth-Rittman Hospitaltart: 09-29-2024 End: 96-62-4904Emcxwvh encounter /12/2025 9:15 AM EDT Office Visit [facility] [address] [place] [address] Jean Pierre Kim, [address] [place] [address] [facility] IMStart: 95-48-2513Mrjgv X-ray of right handXR hand RT min 3V*[facility] Hospital[facility]art: 20-76-6563VA Hand - right GE 3 ViewsWadsworth-Rittman Hospitaltart: 09-22-2024 End: 63-76-3267Thnetig encounter ukerbljfz82/05/2025 9:45 AM EST Office Visit [facility] [address] [place] [address] Jean Pierre Kim, [address] [place] [address] [facility] IMStart: 09-16-2024 End: 77-46-3600Ydgenvj encounter cutnxmvdr52/27/2025 9:45 AM EST Office Visit [facility] [address] [place] [address] Jean Pierre Kim, [address] [place] [address] [facility] IMComment on above:ArrivedStart: 09-15-2024 End: 05-28-7325Puxbqxk encounter ipvxoxhav77/26/2025 9:30 AM EST Office Visit [facility] [address] [place] [address] Jean Pierre Kim, DO [address] [place] [address] [facility] IMStart: 09-08-2024 End: 75-91-2590Mbzxhpt encounter /19/2025 9:30 AM EST Office Visit [facility] [address] [place] [address] Jean Pierre Kim, DO [address] [place] [address] [facility] IMComment on above:ArrivedStart: 08-24-2024 End: 45-31-6157WZZ Breast - bilateral screeningBilateral screening mammogram with tomosynthesis Imaging Routine Encounter for screening mammogram for malignant neoplasm of breast Expected: 08/24/2024 (Approximate), Expires: 11/21/2024NONV Healthcare Work Phone: Comment on above:Expected: 08/24/2024 (Approximate), Expires: 11/21/2024Start: 08-24-2024 End: 08-11-9589JGT Skeletal system Views for bone densityDEXA bone density Imaging Routine Postmenopausal Expected: 08/24/2024 (Approximate), Expires: 11/21/2024NONV HealthcareComment on above:Expected: 08/24/2024 (Approximate), Expires: 11/21/2024Start: 08-24-2024 End: 86-87-2033Qfgmedc encounter lnndlpyyx24/04/2025 10:30 AM EST Office Visit [facility] [address] [place] [address] Jean Pierre Kim, DO [address] [place] [address] N[facility] SWS IMStart: 08-20-2024 End: 14-18-9280swcbrheoye78/31/2025 10:00 AM EST Treatment [facility] [address] [place] [address] Rexroad, Lynnette, OT [address] [place] [address] N[facility] CI PTStart: 08-17-2024 End: 42-44-0215ljcekwzlpi13/28/2025 10:00 AM EST Treatment [facility] [address] [place] [address] [address], Lynnette, OT [address] [place] [address] N[facility] CI PTStart: 08-13-2024 End: 84-52-9632bmcnrewmwn43/24/2025 1:00 PM EST Treatment [facility] [address] [place] [address] Alecia Antony, OT [address] [place] [address] [facility] CI PTStart: 08-10-2024 End: 84-41-5077qlkdroelhqZKNV CI PTComment on above:ArrivedStart: 08-06-2024 End: 61-44-3509ftntmcruli19/17/2025 1:30 PM EST Treatment [facility] [address] [place] [address] [address], Lynnette, OT [address] [place] [address] [facility] CI PTStart: 08-03-2024 End: 43-62-4999mlbmjhspix95/14/2025 2:00 PM EST Treatment [facility] [address] [place] [address] Alecia Antony, OT [address] [facility] [address] [place] [address] [facility] CI PTStart: 75-24-2399Quscjmzy screeningDiabetes: Retinopathy ScreeningNOMS HealthcareStart: 07-20-2024 End: 89-28-1483qafdxcwqvg72/31/2024 10:00 AM EST Treatment [facility] [address] [place] [address] Alecia Antony, OT [address] [place] [address] [facility] CI PTStart: 92-92-3943Zznutzgrn for malignant neoplasm of breast MammogramNONV HealthcareStart: 07-16-2024 End: 41-65-1968vlitpvajkg75/27/2024 10:00 AM EST Treatment [facility] [address] [place] [address] Lynnette Baldwin, OT [address] [place] [address] [facility] CI PTStart: 07-13-2024 End: 41-23-5033ppvsomlmeu67/24/2024 10:00 AM EST Treatment [facility] [address] [place] [address] Alecia Antony, OT [address] [facility] [address] [place] [address] [facility] CI PTStart: 07-09-2024 End: 07-53-9634okkmylvamuVVOO CI PTComment on above:ArrivedStart: 07-06-2024 End: 37-03-7208mambttqbywMERR CI PTComment on above:ArrivedStart: 07-02-2024 Medicare Annual Wellness (AWV)Medicare Annual Wellness (AWV)[facility] Start: 07-02-2024 End: 23-02-8613vmnvjlnzvmPGQW CI PTComment on above:ArrivedStart: 06-29-2024 End: 69-45-0825qjnodzfvwkMAQI CI PTComment on above:ArrivedStart: 06-22-2024 End: 03-08-8948esavteijuq81/03/2024 12:00 PM EST Treatment [facility] [address] [place] [address] Alecia Antony, OT [address] [place] [address] [facility] CI PTStart: 06-15-2024 End: 85-27-4688llabkvkkus33/26/2024 12:00 PM EST Treatment [facility] [address] [place] [address] Alecia Antony, OT [address] [place] [address] [facility] CI PTStart: 06-11-2024 End: 82-68-0601uyxloacsbf67/22/2024 10:00 AM EST Treatment [facility] [address] [place] [address] Alecia Antony, OT [address] [place] [address] [facility] CI PTStart: 06-08-2024 End: 54-10-4968ajljgtcpbs78/19/2024 1:00 PM EST Treatment [facility] [address] [place] [address] Alecia Antony, OT [address] [place] [address] [facility] CI PTStart: 06-04-2024 End: 78-09-8409wpiqnedjdt43/15/2024 9:00 AM EST Treatment [facility] [address] [place] [address] Alecia Antony, OT [address] [place] [address] [facility] CI PTStart: 06-01-2024 End: 12-78-3492zlczbsolwf30/12/2024 9:00 AM EST Treatment [facility] [address] [place] [address] Alecia Antony, OT [address] [place] [address] [facility] CI PTStart: 05-28-2024 End: 18-65-7987gelftcflueYLLT CI PTComment on above:ArrivedStart: 05-25-2024 End: 55-31-7773qyubrhmmfn77/05/2024 10:00 AM EST Evaluation [facility] [address] [place] [address] Alecia Antony, OT [address] [place] [address] ArrivedNOMS CI PTComment on above:ArrivedStart: 05-20-2024 End: 73-58-0666dpxabnhlgqCCZA SWS PTStart: 05-17-2024 End: 67-25-9550sawtqwwdkbJXPN SWS PTStart: 05-13-2024 End: 96-53-3308okdjzalsapOUUX SWS PTStart: 05-10-2024 End: 96-29-7771mhpytvuhdfQSZK SWS PTStart: 05-06-2024 End: 29-83-2362jcgcscpvhfULDH SWS PTStart: 05-03-2024 End: 33-34-6839mntasidfxuGXKM SWS PTStart: 04-29-2024 End: 39-59-2836lmlsvelctaEASD SWS PTStart: 04-26-2024 End: 85-70-3918epilqwxddqUWGY SWS PTStart: 04-23-2024 End: 43-50-6830Xijvgxv encounter sngatbuxf06/04/2024 11:00 AM EDT Office Visit [facility] [address] [place] [address] Jean Pierre Kim DO [address] [place] [address] [facility] S[facility] IMStart: 04-22-2024 End: 41-32-9313gwiamolomwJWGY SWS PTStart: 04-19-2024 End: 18-86-8433mdmcginzolBRJS SWS PTStart: 04-15-2024 End: 46-95-1788uatvvpszvm42/26/2024 1:00 PM EDT Treatment [facility] [address] [place] [address] VernellAlecia cuevas, OT [address] [place] [address] [facility] SWS PTStart: 04-12-2024 End: 76-16-8598mrysrbjipa56/23/2024 1:00 PM EDT Treatment [facility] [address] [place] [address] VernellAlecia cuevas, OT [address] [place] [address] [facility]WS PTStart: 04-08-2024 End: 15-53-4741Yfoybkr encounter /19/2024 2:15 PM EDT Office Visit [facility] [address] [place] [address] Augusta Mcnair DPM [address] [place] [address] [facility] PODIATRYStart: 04-08-2024 End: 88-44-9205kzobiipiab96/19/2024 1:00 PM EDT Treatment [facility] [address] [place] [address] Alecia Antony, OT [address] [place] [address] [facility] PTStart: 03-29-2024 End: 89-59-3018dpannwtujf93/09/2024 1:00 PM EDT Treatment [facility] [address] [place] [address] Alecia Antony, OT [address] [place] [address] [facility] PTStart: 03-25-2024 End: 89-80-4636jwhcjrlogi75/05/2024 12:00 PM EDT Treatment [facility] [address] [place] [address] Alecia Antony, OT [address] [place] [address] [facility] PTStart: 36-05-7795Kcrmhcicd vaccinationInfluenza Vaccine (#1)NOMS HealthcareStart: 03-18-2024 End: 85-13-3724lwojtekabiYLJM [facility] PTComment on above:ArrivedStart: 03-15-2024 End: 81-08-4012esbjuhlyuqMXAU [facility] PTComment on above:ArrivedStart: 12-16-2023 End: 82-63-4696Xjgwjzy encounter lghdffkji27/28/2024 10:20 AM EDT Office Visit [facility] [address] [place] [address] Florecita Green MD [address] [place] [address] [facility] DERMStart: 11-05-2023 End: 53-88-5550Wjgkpre encounter /17/2024 9:45 AM EDT Office Visit [facility] [address] [place] [address] Jean Pierre Kim DO [address] [place] [address] [facility] IMStart: 09-26-2023 End: 23-43-3748Gphmzeu encounter cfcucjxfe32/08/2024 10:30 AM EST Office Visit [facility] [address] [place] [address] Joel Ang PA [address] [place] [address] [facility] ORTHOPAEDICSStart: 09-24-2023 End: 73-88-5396grbdlhcvav69/06/2024 11:30 AM EST Treatment [facility] [address] [place] [address] Meme Breen, PT [address] [place] [address] [facility] NM PTStart: 09-22-2023 End: 77-66-0073ltjvznbxsx21/04/2024 11:15 AM EST Treatment [facility] [address] [place] [address] Meme Breen, PT [address] [place] [address] [facility] NM PTStart: 09-19-2023 End: 48-24-8874ejlpdxvlsf45/01/2024 11:15 AM EST Treatment [facility] [address] [place] [address] Meme Breen, PT [address] [place] [address] [facility] NM PTStart: 09-15-2023 End: 48-89-5368kapkdrrzna99/26/2024 11:45 AM EST Treatment [facility] [address] [place] [address] Meme Breen, PT [address] [place] [address] [facility] NM PTStart: 09-12-2023 End: 40-74-2998adpcfotlvg33/23/2024 11:15 AM EST Treatment [facility] [address] [place] [address] Meme Breen, PT [address] [place] [address] [facility] NM PTStart: 09-10-2023 End: 94-48-8338gcxzomgmdl85/21/2024 10:00 AM EST Treatment [facility] [address] [place] [address] Meme Breen, PT [address] [place] [address] NOM NM PTStart: 09-04-2023 End: 55-97-9508dhjzkgxqqxNKZH NM PTComment on above:Sacroiliac joint pain (Primary Dx); Lumbar paraspinal muscle spasm; Lumbar radiculopathy, chronic; Idiopathic scoliosis of thoracolumbar regionStart: 09-01-2023 End: 99-79-0431wraztgjswo59/12/2024 2:00 PM EST Evaluation [facility] [address] [place] [address] Meme Breen, PT [address] [place] [address] Lumbar paraspinal muscle spasm (Primary Dx); Lumbar radiculopathy, chronic; Idiopathic scoliosis of thoracolumbar region; Acute left-sided low back pain without sciatica; Sacroiliac joint painNOMS NM PTComment on above:Lumbar paraspinal muscle spasm (Primary Dx); Lumbar radiculopathy, chronic; Idiopathic scoliosis of thoracolumbar region; Acute left-sided low back pain without sciatica; Sacroiliac joint painStart: 07-27-2023Medicare Annual Wellness (AWV)Medicare Annual Wellness (AWV)[facility] HealthcareStart: 96-68-3414Bgikaqgoncqi Vaccine: 65+ Years (3 of 3 - PCV20 or PCV21)Pneumococcal Vaccine: 65+ Years (3 of 3 - PCV20 or PCV21)[facility] HealthcareStart: 99-06-6812Igpwllvz screeningDiabetes: Retinopathy ScreeningNONV HealthcareStart: 18-51-0414Pqkhpumahl A1c measurementDiabetes: Hemoglobin H9EIPGU HealthcareStart: 49-64-2675Mwidr screening for protein Diabetes: Urine Protein ScreeningBRIGHAM CITY COMM[facility] HealthcareStart: 81-21-1706Ohuxsnmigu RecurringRegistered [facility] Therapy CastaliaStart: 00-32-0660GQF of right shoulderMR shoulder RT [facility]tart: 02-23-2022 End: 11-18-6982Ayprwmj encounter procedureDeparted [facility] CampusStart: 73-38-5527Tycujirwpwcx Vaccine: 65+ Years (3 - PPSV23 or PCV20)Pneumococcal Vaccine: 65+ Years (3 - PPSV23 or PCV20)[facility] HealthcareStart: 88-10-3373Obbjgerijzud Vaccine: 65+ Years (3 of 3 - PPSV23 or PCV20)Pneumococcal Vaccine: 65+ Years (3 of 3 - PPSV23 or PCV20)[facility] Start: 36-50-9079Nmxmcimxh for malignant neoplasm of colonNOMS HealthcareGlucose measurement estimated from glycated hemoglobinThe [facility] Patient EducationKnow your [facility] Work Phone: [facility] referralOhio[facility] Work Phone: XR Hip - left 3 ViewsXR hip left 2 or 3 views Imaging Routine Sacroiliac joint pain 08/22/2023 11:02 AM [facility] Work Phone: XR Lumbar spine Views W flexion and W extensionXR lumbar spine 4+ views w flexion extension Imaging Routine Acute left-sided low back pain withoutsciatica 08/22/2023 11:02 AM [facility] Immunizations Immunization DateImmunizationNotesCare WbbvuwmyUggxjawm15-68-3010gwdjsrwer, high dose seasonal, preservative-freeMichele Kerri YARD CLEANER Work Phone: noColumbia Regional HospitalMypotappqt41-66-5727jpnvrawre virus vaccine, unspecified formulationStani Velazco PA Work Phone: NOColumbia Regional HospitalSirftusoxo86-80-4159ilwwvlw toxoid, reduced diphtheria toxoid, and acellular pertussis vaccine, adsorbedMabud WALTON Work Phone: [facility] HospitalDjfhzszjps91-89-8237apnyty vaccine recombinant Joel WALTON Work Phone: [facility] HospitalPypqhymdqc21-33-1982FAWER-61 (PFIZER) 12Y and olderJean Pierre Kim DO Work Phone: [facility]09-22-2023Influenza, Seasonal, Quadrivalent, AdjuvantedMabud WALTON Work Phone: [facility] HospitalTumydgpqat39-76-5817fvjteighm virus vaccine, unspecified formulationMabud WALTON Work Phone: [facility] HospitalHmbhaxnaik50-27-1507xjuebz vaccine recombinant Joel WALTON Work Phone: [facility] HospitalRtogvfrmjy37-72-8910WDMIS-11 mRNA Bivalent Booster (Pfizer)Jean Pierre Kim DO Work Phone: [facility]10-14-2022Influenza, High-dose Seasonal, Quadrivalent, Preservative FreeMichele Kerri YARD CLEANER Work Phone: NOColumbia Regional HospitalJxcvzjbuna37-05-2346NDKFR-21 mRNA, Comirnaty (Pfizer)DO Jean Pierre Kim Work Phone: [facility]09-19-2021Influenza, High-dose Seasonal, Quadrivalent, Preservative FreeMichele Kerri YARD CLEANER Work Phone: noColumbia Regional HospitalSbsxbytmzk36-42-9620Zi not use COVID-19 Pfizer 2 doseThomas Olexa Other [facility]03-12-2021Do not use COVID-19 Pfizer 2 doseThomas Olexa Other [facility]10-08-2020Seasonal trivalent influenza vaccine, adjuvanted, preservative freeMichele Kerri YARD CLEANER Work Phone: noColumb[facility] HospitalIqtyiztivh60-08-1874ccdniprembto conjugate vaccine, 13 valentJoel WALTON Work Phone: [facility] HospitalMhgwbcrrkr18-71-3136uptdijx toxoid, reduced diphtheria toxoid, and acellular pertussis vaccine, adsorbedMattedson WALTON Work Phone: [facility] Work Phone: [phone]nqmppwi polysaccharide vaccine, 23 valentJoel WALTON Work Phone: [facility] Payers DatePayer CategoryPayerPoly [id number] Health Insurance [id number] 2018Medicare 1.2.840.194025.1.13.693.2.7.3.335947.315 [id number] 2.0.6.058603.33215384-27-6570Eruujcm Health [id number] 09.05.830.8.871188.18336546-41-8115Iptxmra Health [id number] 2.16.840.1.705733.3.57[id number] 2.16.840.1.521986.3.57[id number] 2.16.840.1.079441.3.57[id number] 2.16.840.1.076364.3.57[id number] 2.16840.1.983675.3.579.[id number] 2.16840.1.274430.3.57[id number] 2.16.840.1.775154.3.57[id number] 2.16840.1.567870.3.57[id number] 2.16840.1.284695.3.57[id number] 2.16840.1.471725.3.57[id number] 2.16840.1.993556.3.57[id number] 2.16.840.1.267509.3.57[id number] 2.16840.1.991060.3.57[id number] 2.16840.1.639042.3.579.[id number] 2.16840.1.011575.3.579.[id number] 2.16840.1.760921.3.579.2.[id number] 2.0.1.623051.3.579.2.202911-61-7402Rzqqaxe0785443 2.0.1.268748.3.579.2.182254-86-2692Uoutbwe2526620 2..1.935856.3.579.2.480604-75-9023Goiwiax5840213 2..1.257685.3.579.2.135397-94-1885Irzmprz1553294 2.0.1.465287.3.579.2.168535-78-7536Vgorjgj3575143 2.0.1.647306.3.579.2.108348-75-4543Obdszno0007878 2..1.429638.3.579.2.396568-75-6280Grmxbfn0677023 2..1.884799.3.579.2.472382-63-9223Ftvdrvs3535550 2.0.1.941671.3.579.2.523791-54-8036Pqnfkss3802348 2.840.1.823767.3.579.2.810216-15-3269Azjafjd9862255 2.840.1.962124.3.579.2.014767-05-3569Chmvkfs2828999 2.0.1.771418.3.579.2.697784-29-8222Ayhgpkz3424269 2..0.1.328558.3.579.[id number] 2.16.840.1.683138.3.579.2.212335-34-0708Yidzcgf8674961 2..0.1.497808.3.579.2.942283-28-0121Okfzift0892438 2..0.1.314940.3.579.2.799936-95-6820Mnsmqai3940703 2..840.1.205465.3.579.2.976115-69-8801Ekitwju7129586 2..840.1.064140.3.579.2.2320AunsnszKCV413691058507 jb187k51-8i3e-13p1-m707-89297v1l6143Zmdknky69858216 2.16.840.1.285638.3.579.2.659Mwyxiyh15880067 2.16840.1.900482.3.579.2.531 [id number] 2.16.840.1.962959.3.579.2.680Xrkmtvy53168547 2.0.1.515436.3.579.2.531 Social History DateTypeDetailFacilityUnknown if ever smokedNort [facility] Other Start: 07-02-2023 End: 37-02-7612Moa [facility]: 12-10-2021 End: 86-22-1922Ekrnklg smoking status NHISEx-smoker (finding)[facility]art: 72-70-7237Bgx Assigned At [facility] Campustart: 07-21-1969 End: 65-78-3104Rsfzyyx of tobacco useCurrent smokerNOMS HealthcareStart: 07-21-1969 End: 65-74-3285Besllbj of tobacco useCigarette SmokerNOMS HealthcareStart: 02-26-2023 End: 78-82-3071Ojtofykxiy smoked current (pack per day) - Rlkcsmwl4WJSC HealthcareHistory of tobacco usePassive smokerNOMS HealthcareStart: 02-26-2023 End: 46-64-1022Dhgxuad use and exposureSmokeless tobacco non-userNOMS Healthcare Start: 08-22-2023 End: 99-64-1346Rqhjmti intakeEx-drinker (finding)[facility] HealthcareHow often to you have a drink containing alcohol?Monthly or lessNOMS HealthcareHow many standard drinks containing alcohol do you have on a typical day?1 or 2NOMS HealthcareHow often do you have 6 or more drinks on 1 occasion?NeverNOMS HealthcareStart: 73-75-1091Ilszhjn CommentPast smoking hx unknownNOMS HealthcareStart: 12-08-2022 Alcohol Commentcaffeine: 2-3 cups per day coffee, teaNOMS HealthcareStart: 76-13-6540Htnzlo identityIdentifies as female gender (finding)[facility] Start: 09-05-6493Umjerue CommentVery rarelyNOMS HealthcareStart: 08-05-2024 End: 57-66-6771ChiDidjcd (finding)[facility] Medical Equipment Procedure CodeEquipment CodeEquipment Original TextEquipment IdentifierDatesOne test strip by finger stick once [id number]: 83-97-9522LEQ 1 STRIP TO CHECK GLUCOSE ONCE [id number]: 66-83-9805AET 1 STRIP TO CHECK GLUCOSE ONCE [id number]: 01-19-2025 Goals DatePatient GoalDesired Activity/State Functional Status PfzhUtjsjdalerSdqfjwIzqhfbwy67-85-3371Sbwrhoc Health Questionnaire 2 item (PHQ- 2) [Reported][facility] [id number]-1 quick depression assessment panel [Reported.PHQ][facility] Clinical Notes 11-18-2009 to 04-06-2025 Note Date & TdhwXdpiUejzsgxi38-04-3272 History of Present illness Narrative* ISABELLE Ma - 04/06/2025 2:00 PM EDT Images from the original note were not included. Mirta Welsh is a 74 y.o. female presents with chief complaint of ears itching HPI: HPI History of Present Illness The patient presents for evaluation of bilateral ear itching. A few weeks ago, she began using an orange sponge earplug in her right ear to muffle the sound of her dogs barking. This resulted in itching in her ear, prompting her to remove the earplug. Suspecting dirt or germs, she cleaned her ear with alcohol or an essential oil using a Q-tip. Despite these measures, the itching has now spread to both ears. She frequently uses a headset and considered that her earbuds might be unclean, so she cleaned them as well. Regardless of these efforts, the itching persists. She reports no hearing issues. Additionally, she experiences constant upper respiratory symptoms, postnasal drip, and nasal congestion. She has a history of a deviated septum and chronic sinus issues but has not sought consultation with an ENT specialist. Denies ear pain, otorrhea, fevers,chills, cough. I have reviewed and reconciled the history and medication list with the patient today. HISTORIES: PAST MEDICAL HISTORY: Past Medical History: Diagnosis Date Age related osteoporosis Anemia 11/2022 Anxiety 2000 Arthritis Breast lump Cataract 2016 Chicken pox Closed dislocation of interphalangeal joint of finger of left hand, subsequent encounter 03/12/2024 COVID-19 05/2020 COVID-19 vaccine administered x 2 ([employer]) DENIES BLOODBORNE DX Depression 2003 External hemorrhoid Cynthia boyle 1950 Fibrocystic breast disease (FCBD) GERD (gastroesophageal reflux disease) Hemorrhoids Herpes zoster with other complication History of colonic polyps History of migraine headaches History of shingles 04/2015 Left breast,rib area 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, ED&C Ingrown toenail 1980s Measles Mild intermittent reactive airway disease (HCC) Multinodular goiter Mumps Obstructive sleep apnea (adult) (pediatric) Open dislocation of phalanx of hand, subsequent encounter 03/12/2024 Other hypoparathyroidism (HCC) Other obesity due to excess calories 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 Lima (06/22 & 06/29) COLONOSCOPY 12/10/2021 Small Polyp,Diverticulosis EGD 01/17/2017 EGD, colonoscopy w/ polypectomy w/ EGD 12/10/2021 Dx GERD,Hiatal hernia,Moderate Gastritis FINGER AMPUTATION Right 10/18/2024 middle finger FRACTURE SURGERY Right reconstruction middle finger X2 HYSTERECTOMY 2013 KNEE SURGERY Bilateral knee arthroscopic: Rt 2005 & 2007, Lt 2005 OTHER SURGICAL HISTORY 1995 miscarrage OTHER SURGICAL HISTORY 09/2018 Yag on bilateral eye SKIN BIOPSY SKIN CANCER EXCISION TOTAL THYROIDECTOMY 09/25/2016 VITRECTOMY Right 11/23/2018 right eye WRIST SURGERY Left 2009 XR WRIST CARPAL TUNNEL LEFT 2007 XR WRIST CARPAL TUNNEL RIGHT 2008 SOCIAL HISTORY: Social History Tobacco Use Smoking status: Former Current packs/day: 0.00 Average packs/day: 1 pack/day for 26.0 years (26.0 ttl pk-yrs) Types: Cigarettes Start date: 07/21/1969 Quit date: 07/21/1995 Years since quittin.7 Passive exposure: Past Smokeless tobacco: Never Tobacco comments: Past smoking hx unknown Substance Use Topics Alcohol use: Not Currently Alcohol/week: 2.0 standard drinks of alcohol Types: 2 Glasses of wine per week Comment: Very rarely Drug use: Never Depression: At risk (12/23/2024) PHQ-2 PHQ-2 Score: 3 FAMILY HISTORY: Family History Problem Relation Name Age of Onset Arthritis Mother Barby Hypertension Mother [place] Heart disease Mother [place] Stroke Mother [place] Diabetes Mother [place] Grqftan-Tmnkr-Fvnag disease Mother [place] Hearing loss Mother [place] Vision loss Mother Barby Depression Mother Barby Cancer Father Len Sr No Known Problems Sister Hypercalcemia Brother Len Diabetes Brother Len Cancer Paternal Grandmother Jenna Due several Osteoporosis Paternal Grandmother Jenna Due Colon cancer Mother's Sister Arthritis Sister Mami Cancer Sister Mami Osteoporosis Sister Mami Arthritis Brother Len Jr Cancer Brother Len Jr Diabetes Brother Len Jr Hypertension Brother Len Vila Diabetes Sister Juan Miguel MEDICATIONS: Current Outpatient Medications Medication Instructions acetaminophen (GoodSense Pain Relief) 325 MG tablet Take by mouth acetic acid-hydrocortisone (Vosol-HC) otic solution 4 drops, Otic, 4 times daily PRN atorvastatin (LIPITOR) 40 mg, Oral, Daily betamethasone dipropionate (Diprolene) 0.05 % ointment Apply to affected areas, up to twice a day when flared, do not use one the face, groin, or underarms, 30 day supply busPIRone (BUSPAR) 5 mg, Oral, 4 times daily Calcium Carbonate (CALCIUM 500 PO) 500 mg, Every 12 hours cholecalciferol (VITAMIN D-3) 2,000 Units, Daily cyclobenzaprine (FLEXERIL) 5 mg, Oral, 2 times daily dicyclomine (BENTYL) 10 mg, Oral, 4 times daily PRN fluocinonide (Lidex) 0.05 % external solution Apply to affected areas on the scalp qd, 30 day supply fluocinonide (Lidex) 0.05 % external solution Apply to affected areas on the scalp, up to once a day when flared, 30 day supply hydrocortisone (Anusol-HC) 2.5 % rectal cream Rectal, 4 times daily PRN ibuprofen 800 mg, Oral, Every 8 hours levothyroxine (SYNTHROID, LEVOXYL) 100 mcg, Oral, Daily before breakfast liothyronine (CYTOMEL) 5 mcg, Oral, Daily lisinopril 10 mg, Oral, Daily metFORMIN (GLUCOPHAGE) 500 mg, Oral, 2 times daily with meals pantoprazole (PROTONIX) 40 mg, Oral, Daily before breakfast, Do not crush, chew, or split. [employer] Prime Test test strip USE 1 STRIP TO CHECK GLUCOSE ONCE DAILY semaglutide (Ozempic, 1 MG/DOSE,) 4 MG/3ML solution pen-injector traZODone (DESYREL) 50 mg, Oral, Nightly triamcinolone (Kenalog) 0.1 % cream Apply 0.5 grams to knees BID prn for itching/90 days. Do not use on the face, neck, armpits or groin. valACYclovir (Valtrex) 1 g tablet Daily PRN venlafaxine XR (EFFEXOR XR) 75 mg, Oral, Daily venlafaxine XR (EFFEXOR XR) 150 mg, Oral, Daily ALLERGIES: No Known Allergies PHYSICAL EXAM: Visit Vitals BP 124/68 Pulse 83 Wt 162 lb SpO2 95% BMI 26.15 kg/m OB Status Postmenopausal Smoking Status Former BSA 1.85 m BP Readings from Last 3 Encounters: 04/06/25 124/68 12/23/24 122/78 12/07/24 100/60 Wt Readings from Last 3 Encounters: 04/06/25 162 lb 12/23/24 161 lb 8 oz 09/29/24 163 lb Physical Exam Physical Exam Ears: Mild redness and irritation with dry skin bilaterally. Mouth/Throat: No abnormalities noted. Respiratory: Clear to auscultation, no wheezing, rales or rhonchi Cardiovascular: RRR Results ASSESSMENT AND PLAN: Assessment & Plan 1. Bilateral ear itching: - The bilateral ear itching could be due to the use of either ear plugs or ear buds. The patient reports itching in both ears that started after using an ear plug in the right ear. - The skin in the ear canals appears dry, irritated, and slightly red, but there is no sign of infection. - A prescription for acetic acid and hydrocortisone drops will be sent to the pharmacy. The patientis advised to avoid using ear plugs or ear buds while administering these drops. If there is no improvement after a week of using the prescribed drops, she should inform via Traklight message, and a referral to an ENT specialist will be considered. Follow-up: The patient will follow up in 06/2025. documented in this encounterWright Memorial [id number] Evaluation note* Diagnosis Onset Date Resolution Status Admit Date Flexion contracture of joint of right best nd acuteJune 2024 10:20amOther specified postprocedural statesacuteJune 2024 10:20amPrimary osteoarthritis of left hipacuteAugust 2024 2:26pm Primary osteoarthritis of left kneeacuteAugust 2024 2:26pm [facility] Work Phone: 1(225) 809-591705-29-2025 History of Present illness Narrative* Florecita Green MD - 12/16/2024 10:30 AM EDT [...] limited to risks of scarring, darker or parent coach pigmentary changes, recurrence, incomplete removal and infection. [...] Next Visit: 1 year documented in this encounterWright Memorial [id number] History of Present illness Narrative* Rekha Chen Cornejo, YARD CLEANER - 12/14/2024 10:00 AM EDT Subjective Patient ID: Mirta Welsh (: 1950) is a 74 y.o. female who presents for Wound Check. Wound Check Patient presents today for pressure ulcer follow up. Patient does have HH coming in to assess and care for [...] follow-up. Rekha Cornejo NP documented in this encounterWright Memorial [id number] History of Present illness Narrative* Rekha Cornejo NP - 12/07/2024 2:00 PM EDT Images from the original note were not included. Subjective Patient ID: Mirta Welsh (: 1950) is a 73 y.o. female who presents for Wound Infection. HPI Patient presents today for an open area at her tailbone area that has been seeping. She states [...] at time of appt. documented in this encounterWright Memorial [id number] Evaluation note* Diagnosis Onset Date Resolution Status Admit Date Flexion contracture of joint of right best nd acuteMarch 2024 2:55pmFlexion contracture of joint of right handacuteApril 2024 1:24pmOther specified postprocedural statesacuteApril 2024 1:24pm Flexion contracture of joint of right handacuteApril 2024 11:25amOther specified postprocedural statesacuteApril 2024 11:25amFlexion contracture of joint of right handacuteMay 2024 2:28pmOther specified postprocedural statesacuteMay 2024 2:28pm [facility] Work Phone: 1(813) 125-541902-19-2025 History of Present illness Narrative* Jean Pierre Kim DO - 09/08/2024 9:30 AM EST Images from the original note were not included. Subjective Patient ID: Mirta Welsh is a 73 y.o. female who presents for No chief complaint on file.. HPI- Review of Systems Objective Physical Exam Assessment/Plan Problem List Items Addressed This Visit OA (osteoarthritis) - Primary Other Visit Diagnoses Herpes Relevant Medications valACYclovir (Valtrex) 1 g tablet Right Knee Injection Date/Time: Performed by: Jean Pierre Kim DO Authorized by: Jean Pierre Kim DO Consent: Consent obtained: Verbal Consent given by: Patient Risks, benefits, and alternatives were discussed: yes Risks discussed: Bleeding, infection and pain [place] protocol: Patient identity confirmed: Verbally with patient Location: Location: knee Anesthesia: Anesthesia method: None Procedure details: Needle gauge: 22 G Approach: Posterior Steroid injected: yes Specimen collected: no Post-procedure details: Dressing: Adhesive bandage Left Knee Injection Date/Time: Performed by: Jean Pierre Kim DO Authorized by: Jean Pierre Kim DO Consent: Consent obtained: Verbal Consent given by: Patient Risks, benefits, and alternatives were discussed: yes Risks discussed: Bleeding, infection and pain [place] protocol: Patient identity confirmed: Verbally with patient Location: Location: Left Knee. Anesthesia: Anesthesia method: None Procedure details: Needle gauge: 22 G Approach: Posterior Steroid injected: yes Specimen collected: no Post-procedure details: Dressing: Adhesive bandage documented in this encounterWright Memorial [id number] History of Present illness Narrative* Julio Oliva, IAN - 08/24/2024 10:30 AM EST Images from the original note were not included. Mirta Welsh is a 73 y.o. female presents with chief complaint of 4 month follow up (Pt is being seen today for her 4 month follow up, MWV and managment of her chronic conditions. Pt had lab work done in preparations for todays visit, results and recommendations will be reviewed with them. Pt is due for flu vaccine and will be offered at this time. Pt is overdue for MMG. /), Medicare Annual Wellness Visit Subsequent, Sinus Problem (Pt states she has thick clear post nasal drip, onset x 1 month. She is always clearing throat.), Knee Pain (She would like to discuss possibly getting knee injections again, LT. ), and dicuss medication (Would like to discuss possibly getting Venlafaxine 75 mg at night. ) HPI: HPI History of Present Illness The patient is a 73-year-old female who presents today for a routine 4-month office visit and Medicare wellness exam. She reports overall good health with no recent falls. 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 She is able to rise froma chair without arm support and ascend stairs without assistance. She has received both shingles and pneumonia vaccines, as well as the influenza vaccine. She has declined further mammograms. She hasa history of thyroid cancer and is on medication to maintain low TSH levels. She is currently taking atorvastatin for cholesterol management, having resumed the medication in April 2024. She is also on trazodone at bedtime. She reports no abdominal pain and normal bowel and bladder function. She has a history of meniscus tears in her knees, for which she has undergone surgery and received Synvisc injections, which have provided relief. She is now considering another round of injections for her left knee. She also reports severe pain in her thumb joint and is considering cortisone injections. She has been experiencing postnasal drip and frequent phlegm production, which she describes as thick and bright green. She has nasal saline irrigations at home but has not been using them. She has been diagnosed with diabetes and is currently on Ozempic 1 mg once weekly and metformin 500mg. She has experienced weight loss since starting these medications. She has been experiencing depressive symptoms and is currently on Effexor 150 mg in the morning. She has expressed interest in adding a small dose in the afternoon, as she has found that taking an additional 75 mg dose improves her mood. She is also on BuSpar 5 mg four times daily. Supplemental Information She has a history of two surgeries on her finger, the most recent one being in March 2024, but she continues to experience difficulty straightening it. She has been informed that a silicone knuckle or tendon graft may be necessary. She has been undergoing physical therapy and is scheduled to see Dr. Rodriguez on 09/22/2024 for a second opinion. She is right-handed and reports limited hand function due to the finger issue. MEDICATIONS Current: Effexor, atorvastatin, Protonix, lisinopril, Cytomel, trazodone, Ozempic, metformin, dicyclomine, BuSpar IMMUNIZATIONS She has had both shingles vaccines, both pneumonia vaccines, and her flu vaccine. I have reviewed and reconciled the history and medication list with the patient today. CURRENT PCP/CARE TEAM: Patient Care Team: Jean Pierre Kim DO as PCP - General (Internal Medicine) Jean Pierre Kim DO as PCP - ACO Reach Meme Gong MD as Referring Physician (Sleep Medicine) Health Risk Assessment Form Do you need help eating, bathing, using the toilet, dressing, or getting around your home?: No Can you prepare your own meals?: Yes Can you do your own housework without help?: Yes Can you shop for groceries or clothes without help?: Yes Do you exercise for about 20 minutes 3 or more days a week?: No How confident are you that you can control and manage most of your health problems?: Very confident Can you mange your money, credit cards and accounts, pay bills and taxes?: Yes Vision Screening: Yes, 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 Hearing Screening: Yes, no gross abnormalities Cognitive Screening Three Word Registration: Banana, [place], Chair Clock Drawing: Normal Clock - 2 Three Word Recall: All 3 words correct - 3 Total Score (0-5 Points): 5 HISTORIES: PAST MEDICAL HISTORY: Past Medical History: Diagnosis Date Age related osteoporosis (CMS/HCC) Anemia 11/2022 Anxiety 2000 Arthritis Breast lump Cataract 2016 Chicken pox Closed dislocation of interphalangeal joint of finger of left hand, subsequent encounter 03/12/2024 COVID-19 05/2020 COVID-19 vaccine administered x 2 ([employer]) DENIES BLOODBORNE DX Depression (CMS/HCC) 2002 External hemorrhoid Fallen archkarina 1950 Fibrocystic breast disease (FCBD) GERD (gastroesophageal reflux disease) Hemorrhoids Herpes zoster with other complication History of colonic polyps History of migraine headaches History of shingles 04/2015 Left breast,rib area 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, ED&C Ingrown toenail Measles Mild intermittent reactive airway disease (CMS/HCC) Multinodular goiter (CMS/HCC) Mumps Obstructive sleep apnea (adult) (pediatric) Open dislocation of phalanx of hand, subsequent encounter 03/12/2024 Other hypoparathyroidism (CMS/HCC) Other obesity due to excess calories Papillary 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 Lima (06/22 & 06/29) COLONOSCOPY 12/10/2021 Small Polyp,Diverticulosis EGD 01/17/2017 EGD, colonoscopy w/ polypectomy w/ EGD 12/10/2021 Dx GERD,Hiatal hernia,Moderate Gastritis FRACTURE SURGERY Right reconstruction middle finger X2 HYSTERECTOMY 2013 KNEE SURGERY Bilateral knee arthroscopic: Rt 2005 & 2006, Lt 2006 OTHER SURGICAL HISTORY 1995 miscarrage OTHER SURGICAL HISTORY 09/2018 Yag on bilateral eye TOTAL THYROIDECTOMY 09/25/2016 VITRECTOMY Right 11/23/2018 right eye WRIST SURGERY Left 2009 XR WRIST CARPAL TUNNEL LEFT 2007 XR WRIST CARPAL TUNNEL RIGHT 2008 SOCIAL HISTORY: Social History Tobacco Use Smoking status: Former Current packs/day: 0.00 Average packs/day: 1 pack/day for 26.0 years (26.0 ttl pk-yrs) Types: Cigarettes Start date: 07/21/1969 Quit date: 07/21/1995 Years since quittin.1 Passive exposure: Past Smokeless tobacco: Never Tobacco comments: Past smoking hx unknown Substance Use Topics Alcohol use: Not Currently Alcohol/week: 2.0 standard drinks of alcohol Types: 2 Glasses of wine per week Comment: Very rarely Drug use: Never Depression: Not at risk (08/24/2024) PHQ-2 PHQ-2 Score: 2 FAMILY HISTORY: Family History Problem Relation Name Age of Onset Arthritis Mother [place] Hypertension Mother [place] Heart disease Mother [place] Stroke Mother [place] Diabetes Mother [place] Chavcfp-Sazsg-Dyhlo disease Mother [place] Hearing loss Mother [place] Vision loss Mother [place] Depression Mother [place] Cancer Father Len Sr No Known Problems Sister Hypercalcemia Brother Len Diabetes Brother Len Cancer Paternal Grandmother Jenna Due several Osteoporosis Paternal Grandmother Jenna Due Colon cancer Mother's Sister Arthritis Sister Mami Cancer Sister Mami Osteoporosis Sister Mami Arthritis Brother Len Cancer Brother Len Diabetes Brother Len Hypertension Brother [facility] Diabetes Sister Juan Miguel MEDICATIONS: Current Outpatient Medications Medication Instructions atorvastatin (LIPITOR) 40 mg, Oral, Every morning [...] 800 mg, Oral, Every 8 hours levothyroxine (Synthroid, Levoxyl) 100 MCG tablet TAKE 1 TABLET IN THE MORNING BEFORE A MEAL liothyronine (CYTOMEL) 5 mcg, Oral, Daily lisinopril 10 mg, Oral, Daily metFORMIN (GLUCOPHAGE) 500 mg, Oral, Daily with breakfast pantoprazole (PROTONIX) 40 mg, Oral, Daily before breakfast, Do not crush, chew, or split. semaglutide (Ozempic, 1 MG/DOSE,) 4 MG/3ML solution pen-injector as directed Subcutaneous once weekly for 30 days traZODone (DESYREL) 50 mg, Oral, Nightly venlafaxine XR (EFFEXOR XR) 225 mg, Oral, Daily with breakfast, Do not crush, chew, or split. ALLERGIES: Allergies Allergen Reactions Wellbutrin [Bupropion] Increased depression PHYSICAL EXAM: Visit Vitals BP 110/70 Pulse 85 Ht 5' 6 Wt 156 lb SpO2 95% BMI 25.18 kg/m OB Status Postmenopausal Smoking Status Former BSA 1.82 m BP Readings from Last 3 Encounters: 08/24/24 110/70 04/23/24 126/76 02/12/24 132/80 Wt Readings from Last 3 Encounters: 08/24/24 156 lb 04/23/24 160 lb 11/05/23 158 lb Physical Exam Constitutional: General: She is awake. She is not in acute distress. Appearance: She is well-developed. HENT: Head: Normocephalic. Right Ear: Tympanic membrane normal. Left Ear: Tympanic membrane normal. Nose: Nose normal. Mouth/Throat: Mouth: Mucous membranes are moist. Pharynx: Oropharynx is clear. Eyes: Extraocular Movements: Extraocular movements intact. Neck: Thyroid: No thyromegaly. Vascular: No carotid bruit. Cardiovascular: Rate and Rhythm: Normal rate and regular rhythm. Pulses: Posterior tibial pulses are 1+ on the right side and 1+ on the left side. Heart sounds: Normal heart sounds. No murmur heard. No gallop. Pulmonary: Effort: Pulmonary effort is normal. No respiratory distress. Breath sounds: Normal breath sounds. No wheezing, rhonchi or rales. Chest: Chest wall: No tenderness. Abdominal: General: Bowel sounds are normal. There is no distension. Palpations: Abdomen is soft. There is no hepatomegaly, splenomegaly or mass. Tenderness: There is no abdominal tenderness. Musculoskeletal: General: No deformity. Normal range of motion. Cervical back: Normal range of motion and neck supple. No rigidity or tenderness. Lymphadenopathy: Cervical: No cervical adenopathy. Skin: General: Skin is warm and dry. Neurological: Mental Status: She is alert and oriented to person, place, and time. Motor: No weakness. Gait: Gait is intact. Psychiatric: Mood and Affect: Mood normal. Mood is not anxious or depressed. Behavior: Behavior is cooperative. Thought Content: Thought content normal. Cognition and Memory: Cognition normal. Judgment: Judgment normal. Results Laboratory Studies TSH was a little low at 0.35. Free T3 was 2.63 and free T4 was 1.19. Sodium was 142, potassium was 4.5, glucose was 103. GFR greater than 60. Calcium was 8.5. Liver functions are completely normal. Hemoglobin A1c 5.5. HDL is 66, LDL is 118. CBC was normal. ASSESSMENT AND PLAN: Assessment & Plan 1. Encounter for subsequent annual wellness visit (AWV) in Medicare patient -A wellness visit was completed with the patient today by Julio Oliva NP. Demographics updated.The past medical history, family history, and social history reviewed and updated. The medication list (including supplements) has been reconciled. -A list of other providers involved with the patient's care and any durable medical goods providers documented. -Depression screening was completed andaddressed as indicated. Cognitive function was assessed by direct observation and assessment of ability to perform ADLs and iADLs was done. As well as Mini-Cog assessment. -We reviewed, and discussedas indicated, safety issues, including falls risk assessment. -Time was spent reviewing and discussi ng age-appropriate screenings, immunizations and indicated laboratory monitoring. -We discussed Advanced Directives and code status and this information was updated in the chart. -BMI was assessed. Educational handout with tips for healthy diet, exercise and lifestyle modifications that will promote achieving or maintaining a healthy weight provided. The BMI will be monitored at routine office appointments as well . -Major risk factors for heart disease were identified and modifiable risk factors discussed. -A Care Plan ( Report card ) was provided to patient at the end of the appointment. Included in this is recommendations for when any testing or immunizations need to be repeated. Her TSH levels are slightly low at 0.35, which is acceptable given her history of thyroid cancer. Her free T3 and T4 levels are within normal range at 2.63 and 1.19, respectively. Her comprehensive metabolic panel results are satisfactory, with sodium at 142, potassium at 4.5, glucose at 103, GFR above 60, and calcium at 8.5. Liver function tests are normal. Hemoglobin A1c is well-controlled at 5.5. CBC results are also within normal limits, with no evidence of anemia. Lipid profile shows an HDL of 66 and LDL of 118, which was last checked in April 2024. Urinalysis with reflex to culture did not indicate any infection. BMI is 25.18, which is within the target range for her age group. She has lost weight, going from 160 to 156 pounds. She is currently on dicyclomine for irritable bowel syndrome and BuSpar 5 mg four times daily. She is advised to continue her current regimen of metformin 500 mg and Ozempic 1 mg once weekly. She is encouraged to schedule an eye exam to rule out retinopathy. Orders for a mammogram and DEXA scan have been provided. She is advised to use nasal saline irrigations and plain Claritin for her postnasal drip. A referral for Synvisc injections has been made. She is advised to apply topical Voltaren gel on her thumb joint. 2. ACP (advance care planning) -no living will or POA -Full code 3. Major depressive disorder, single episode, severe without psychotic features (HCC) (CMS/HCC) - venlafaxine XR (Effexor XR) 225 MG 24 hr tablet; Take 1 tablet (225 mg) by mouth in the morning. Take with meals. Do not crush, chew, or split.. Dispense: 90 tablet; Refill: 2 4. Primary hypertension (CMS/HCC) - lisinopril 10 MG tablet; Take 1 tablet (10 mg) by mouth Daily Dispense: 90 tablet; Refill: 3 - Comprehensive metabolic panel; Future - Comprehensive metabolic panel 5. Postoperative hypothyroidism (CMS/HCC) - liothyronine (Cytomel) 5 MCG tablet; Take 1 tablet (5 mcg) by mouth Daily Dispense: 90 tablet; Refill: 3 6. Gastroesophageal reflux disease, unspecified whether esophagitis present - pantoprazole (ProtoNix) 40 MG EC tablet; Take 1 tablet (40 mg) by mouth in the morning. Take before meals. Do not crush, chew, or split.. Dispense: 90 tablet; Refill: 3 7. Age related osteoporosis, unspecified pathological fracture presence (CMS/HCC) (Primary) -Due for DEXA 8. Obstructive sleep apnea syndrome -denies issue 9. Primary osteoarthritis involving multiple joints - Ambulatory Referral for Internal Inj; Future 10. Type 2 diabetes mellitus with other specified complication, without long- term current use of insulin (CMS/HCC) - Microalbumin / creatinine urine ratio; Future - Comprehensive metabolic panel; Future - Hemoglobin a1c with eag; Future -Her hemoglobin A1c is well-controlled at 5.5. She is currently on metformin 500 mg and Ozempic 1 mg once weekly. She is advised to continue her current medication regimen. An eye exam is recommendedto rule out retinopathy. 11. Irritable bowel syndrome with constipation 12. Postmenopausal - DEXA bone density; Future 13. Encounter for screening mammogram for malignant neoplasm of breast - Bilateral screening mammogram with tomosynthesis; Future 14. Mixed hyperlipidemia (CMS/HCC) - Lipid panel; Future -Her LDL is 118, which is above the target of under 70 for diabetics. She resumed taking atorvastatin in April 2024. She is advised to continue her current medication regimen. 15. Primary osteoarthritis of both knees - Ambulatory Referral for Internal Inj; Future ut long-term current use of insulin (CMS/HCC) - Microalbumin / creatinine urine ratio; Future - Comprehensive metabolic panel; Future - Hemoglobin a1c with eag; Future 9. Irritable bowel syndrome with constipation -denies issues 10. Postmenopausal - DEXA bone density; Future 11. Encounter for screening mammogram for malignant neoplasm of breast - Bilateral screening mammogram with tomosynthesis; Future 12. Mixed hyperlipidemia (CMS/HCC) - Lipid panel; Future PROCEDURE The patient has a history of meniscus tear surgeries and received Synvisc injections for her knees.She would like referral for synvisc injections. Last one was 2021. documented in this encounterWright Memorial [id number] History of Present illness Narrative* Alecia Antony, OT - 08/17/2024 10:00 AM EST Occupational Therapy Occupational Therapy Treatment Visit Patient Name: Mirta Welsh Today's Date: 08/17/2024 Linked Episodes Type: Episode: Status: Noted: Resolved: Last update: Updated by: Occupational Therapy R MF injury Active 05/25/2024 08/17/2024 11:14 AM Alecia Antony OT Comments: Visit number: 07/07 Timed Code Treatment minutes: 60 Total Treatment Time: 60 Subjective Pain: Pt reports following last OT session her finger became very sore. Pain persisted a few days before resolving. Does not want IDN today. Overall progress: improving Objective: MT including Fluido x 10 minutes with supervised JASMIN at start of session for tissue preconditioningSTM/ DTM for extensive scar massage performed to [...] PIP joint. No AROM from PIP to DIPpresent. P: Plan to hold therapy til 2nd opnion with ortho in September. Pt in agreement. Pt to call as needed. documented in this encounterWright Memorial [id number] History of Present illness Narrative* Lynnette Baldwin, OT - 08/13/2024 1:00 PM EST Occupational Therapy Occupational Therapy Treatment Visit Patient Name: Mirta Welsh Today's Date: 08/13/2024 No linked episodes Visit number: 06/07 Timed Code Treatment minutes: 60 Total Treatment Time: 60 Subjective Pain: No pain noted. Pt reports that dry needling helped to loosen hand. Overall progress: improving Objective: MT including Fluido x 10 minutes with supervised JASMIN at start of session for tissue preconditioningSTM/ DTM for extensive scar massage performed to [...] PIP joint. No AROM from PIP to DIPpresent. Continue to address limited ROM of MF in order to return to I/ADL tasks at discharge. P: Continue with POC, progress per toleration. documented in this encounterWright Memorial [id number] History of Present illness Narrative* Lynnette Baldwin OT - 08/10/2024 9:00 AM EST Occupational Therapy Occupational Therapy Treatment Visit Patient Name: Mirta Welsh Today's Date: 08/10/2024 Linked Episodes Type: Episode: Status: Noted: Resolved: Last update: Updated by: Occupational Therapy R MF injury Active 05/25/2024 08/10/2024 9:10 AM Alecia Antony OT Comments: Visit number: 05/07 Timed Code Treatment minutes: 60 Total Treatment Time: 60 Subjective Pain: No pain noted. Pt reports having apt for second opinion in September. Pt reports having difficulty holding water bottle, coffe cup and opening refrigerator and stem sizer doors. Overall progress: improving Objective: MT including Fluido x 10 minutes with supervised JASMIN at start of session for tissue preconditioningSTM/ DTM for extensive scar massage performed to [...] PIP joint. No AROM from PIP to DIPpresent. Continue to address limited ROM of MF in order to return to I/ADL tasks at discharge. P: Continue with POC, progress per toleration. documented in this [facility]01-17-2025 History of Present illness Narrative* Lynnette Baldwin OT - 08/06/2024 1:30 PM EST Occupational Therapy Occupational Therapy Treatment Visit Patient Name: Mirta Welsh Today's Date: 08/06/2024 No linked episodes Visit number: 04/07 Timed Code Treatment minutes: 55 Total Treatment Time: 55 Subjective Pain: No pain noted. Pt reports having apt for second opinion in September. Pt reports having difficulty holding water bottle, coffe cup and opening refrigerator and stem sizer doors. Overall progress: improving Objective: MT including Fluido x 10 minutes with supervised JASMIN at start of session for tissue preconditioningSTM/ DTM for extensive scar massage performed to the entire R hand, PROM to digits 1-3 1x20. AROM digits 1-3 x20. Joint mobilizations complete to PIP of MF and blue rubber band exercises complete 1x20 for AROM with resistance for flexion/extension/ and finger abduction. Red theraputty ex. Finger at-25 degrees following session. Pt educated regarding benefits of paraffin or other sources of heat.and she verbalizing understanding. Treatment: Manual: STM/DTM for edema and scar management. PROM/ stretching/ joint mobilization Therapeutic Exercise: Light ROM exercises of 3rd digit Therapeutic Activity: Modalities: Neuro Re-Ed: Assessment/Plan Pt tolerated session well. Continues to have extensor lag of the PIP joint. No AROM from PIP to DIPpresent. Continue to address limited ROM of MF in order to return to I/ADL tasks at discharge. P: Continue with POC, progress per toleration. documented in this encounterWright Memorial [id number] Evaluation note* Diagnosis Onset Date Resolution Status Admit Date SAMANTHA on CPAP acuteJanuary 2024 11:24amFlexion contracture of joint of right handacute September 22, 2024 2:55pm [facility] Work Phone: 1(128) 106-481501-16-2025 Evaluation note* Diagnosis Onset Date Resolution Status Admit Date SAMANTHA on CPAP acuteJanuary 2024 11:24amFlexion contracture of joint of right handacute September 22, 2024 2:55pmFlexion contracture of joint of right handacuteApril 2024 1:24pmOther specified postprocedural statesacuteApril 2024 1:24pm [facility] Work Phone: 1(950) 344-493901-16-2025 Evaluation note* Diagnosis Onset Date Resolution Status Admit Date SAMANTHA on CPAP acuteJanuary 2024 11:24amFlexion contracture of joint of right handacute September 22, 2024 2:55pmFlexion contracture of joint of right handacuteApril 2024 1:24pmOther specified postprocedural statesacuteApril 2024 1:24pm Flexion contracture of joint of right handacuteApril 2024 11:25amOther specified postprocedural statesacuteApril 2024 11:25am [facility] Work Phone: 1(463) 594-456301-15-2025 NoteOrthopedic Surgery 03/25/2024 Middle Finger Extensor Tendon Repair [...] shown the patient how to access the [facility] website to find a hand surgeon closer to her home in [place], [place]. -Follow up YUNG Samuels, MS3 I [...] to do anything further with her finger. [facility]01-10-2025 History of Present illness Narrative* Lynnette Baldwin, OT - 07/30/2024 9:00 AM EST Occupational Therapy Occupational Therapy Treatment Visit Patient Name: Mirta Welsh Today's Date: 07/30/2024 Linked Episodes Type: Episode: Status: Noted: Resolved: Last update: Updated by: Occupational Therapy R MF injury Active 05/25/2024 07/30/2024 9:11 AM Alecia Antony OT Comments: Visit number: 03/07 Timed Code Treatment minutes: 53 Total Treatment Time: 53 Subjective Pain: No pain noted. Pt reports having appointment next fri with sx and a second apt for second opinion in September. Pt reports having difficulty holding water bottle, coffe cup and opening refrigeratorand stem sizer doors. Overall progress: improving Objective: MT including Fluido x 10 minutes with supervised JASMIN at start of session for tissue preconditioningSTM/ DTM for extensive scar massage performed to the entire R hand, wrist, PROM to digits 1-3 1x20.AROM digits 1-3 x20 and wrist. Joint mobilizations [...] PIP joint. No AROM from PIP to DIPpresent. Continue to address limited ROM of MF in order to return to I/ADL tasks at discharge. P: Continue with POC, progress per toleration. documented in this [facility]12-20-2024 History of Present illness Narrative* Lynnette Baldwin OT - 07/09/2024 9:00 AM EST Occupational Therapy Occupational Therapy Treatment Visit Patient Name: Mirta Welsh Today's Date: 07/09/2024 Linked Episodes Type: Episode: Status: Noted: Resolved: Last update: Updated by: Occupational Therapy R MF injury Active 05/25/2024 07/09/2024 9:11 AM Alecia Antony OT Comments: Visit number: 02/04 Timed Code Treatment minutes: 54 Total Treatment Time: 54 Subjective Pain: No pain noted. Pt reports having had a scab that came off with no further open areas. Overall progress: improving Objective: MT including Fluido x 10 minutes with supervised JASMIN at start of session for tissue preconditioningSTM/ DTM for extensive scar massage performed to the entire R hand, wrist, PROM to digits 1-3 1x20.AROM digits 1-3 x20 and wrist. Joint mobilizations [...] PIP joint. No AROM from PIP to DIPpresent. Continue to address limited ROM of MF in order to return to I/ADL tasks at discharge. P: Continue with POC, progress per toleration. documented in this [facility]12-17-2024 History of Present illness Narrative* Alecia Antony OT - 07/06/2024 10:00 AM EST Occupational Therapy Occupational Therapy Treatment Visit Patient Name: Mirta Welsh Today's Date: 07/06/2024 Linked Episodes Type: Episode: Status: Noted: Resolved: Last update: Updated by: Occupational Therapy R MF injury Active 05/25/2024 07/06/2024 9:58 AM Alecia Antony OT Comments: Visit number: 01/05 Timed Code [...] JASMIN at start of session for tissue preconditioningSTM/ DTM for extensive scar massage performed to the entire R hand, wrist, PROM to digits 1-3 1x20.AROM digits 1-3 x20 and wrist. Joint mobilizations [...] PIP joint. No AROM from PIP to DIPpresent. Continue to address limited ROM of MF in order to return to I/ADL tasks at discharge. P: Continue with POC, progress per toleration. documented in this encounterWright Memorial [id number] History of Present illness Narrative* Lynnette Baldwin OT - 07/02/2024 1:30 PM EST Occupational Therapy Occupational Therapy Treatment Visit Patient Name: Mirta Welsh Today's Date: 07/02/2024 Linked Episodes Type: Episode: Status: Noted: Resolved: Last update: Updated by: Occupational Therapy R MF injury Active 05/25/2024 07/02/2024 1:26 PM Alecia Antony OT Comments: Visit number: 11/05 Timed Code Treatment minutes: 60 Total Treatment Time: 60 Subjective Pain: /. Saw ortho on 06/22. He would like her to continue with OT. Overall progress: improving Objective: MT including Fluido x 10 minutes with supervised JASMIN at start of session for tissue preconditioningSTM/ DTM for extensive scar massage performed to the entire R hand, wrist, PROM to digits 1-3 1x20.AROM digits 1-3 x20 and wrist. Joint mobilizations [...] POC, progress per toleration. documented in this encounterWright Memorial [id number] History of Present illness Narrative* Alecia Antony OT - 06/29/2024 2:00 PM EST Occupational Therapy Occupational Therapy Treatment Visit Patient Name: Mirta Welsh Today's Date: 06/29/2024 Linked Episodes Type: Episode: Status: Noted: Resolved: Last update: Updated by: Occupational Therapy R MF injury Active 05/25/2024 06/29/2024 1:57 PM Alecia Antony OT Comments: Visit number: 10/05 Timed Code Treatment minutes: 60 Total Treatment Time: 60 Subjective Pain: 08/30. Saw ortho on 06/22. He would like her to continue with OT. If she remains stiff over thenext 6 weeks he would consider a transfer [...] POC, progress per toleration. documented in this encounterWright Memorial [id number] NoteOrthopedic Surgery 03/25/2024 Middle Finger Extensor Tendon Repair [...] may be an additional personal documentation from me.[facility]11-26-2024 History of Present illness Narrative* Alecia Antony OT - 06/15/2024 12:00 PM EST Occupational Therapy Occupational Therapy Treatment Visit Patient Name: Mirta Welsh Today's Date: 06/15/2024 Linked Episodes Type: Episode: Status: Noted: Resolved: Last update: Updated by: Occupational Therapy R MF injury Active 05/25/2024 06/15/2024 2:06 PM Alecia Antony OT Comments: Visit number: 10/05 Timed Code Treatment minutes: 60 Total Treatment Time: 60 Subjective Pain: 2/10. Pt reports I dried my splint in the dryer and it is ruined. The spot on my knuckle ishealed, however it is scabbed over at the [...] POC, progress per toleration. documented in this encounterWright Memorial [id number] History of Present illness Narrative* Alecia Antony OT - 05/28/2024 12:30 PM EST Occupational Therapy Occupational Therapy Treatment Visit Patient Name: Mirta Welsh Today's Date: 05/28/2024 Linked Episodes Type: Episode: Status: Noted: Resolved: Last update: Updated by: Occupational Therapy R MF injury Active 05/25/2024 05/28/2024 12:33 PM Alecia Antony OT Comments: Visit number: 09/07 Timed Code Treatment minutes: 60 Total Treatment Time: 60 Subjective Pain: 2/10. The araceli tape worked well but I ended up taking it off to use my hand for something.I was able to give my dog a [...] POC, progress per toleration. documented in this encounterWright Memorial [id number] History of Present illness Narrative* Alecia Antony OT - 05/25/2024 10:00 AM EST Occupational Therapy Occupational Therapy Evaluation Visit Patient Name: Mirta Welsh Today's Date: 05/25/2024 Linked Episodes Type: Episode: Status: Noted: Resolved: Last update: Updated by: Occupational Therapy R MF injury Active 05/25/2024 05/25/2024 9:59 AM Alecia Antony OT Comments: Visit number: 1 ( 12 approved) Subjective 73 y/o female presents with chief complaint of limited ROM and pain of the R MF s/p revision of herright middle finger extensor tendon repair on 03/25/2024. [...] heal for a while and do blocking exe rcises . Pain: is sporadic. Is not currently [...] joint blocking complete to R MF 1x15. [place] Stem complete to wrist extensors 10 on/10 off while patient actively attempted to raise finger off table with good toleration. Kineseotape applied to finger as well as araceli tape in order to decrease extensor lag. Pt verbalizing understanding of wear times. Assessment/Plan Short Term Goals: Pt will be independent with home exercise program for light strengthening and ROM at discharge. Correction Goals: PRWHE Pain Score < 10/50 ( IE: 40/50) PRWHE Functional Score < 15/100 ( IE: 80/100 ) Increase R MF extension to at least -20 at discharge. Pt to be able to actively touch DPC crease with all fingers at discharge. 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 Pt will be able to use right UE in light daily activities. Pt will benefit from skilled OT to address the above impairments for 2x/week for 6 weeks. I hereby deem this POC medically necessary. Please sign below. Date: documented in this [facility]10-28-2024 NotePatient requesting OT referral sent to fax# [phone] Health10-28-2024 Telephone encounter Note* Telephone Encounter - Jennifer Doll - 05/17/2024 9:33 AM EDT Looking in for referral, the referral she has has been closed. Should she be notified that a new referral is needed? [facility] [id number] Miscellaneous Notes* Telephone Encounter - Jennifer Doll - 05/17/2024 9:33 AM EDT Looking in for referral, the referral she has has been closed. Should she be notified that a new referral is needed? 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 HPI: Patient presents today to for DM shoe recheck. Shoes were ordered from Dr. Alonso, casey cast 8.5W. Insoles were ordered from Dr. Alonso. Required paperwork has been completed including needed documentation from the patient's PCP/Engineer System Administrator. Pt states the new shoes feel like [...] left fourth and fifth digits, slight pain tothe ingrown toenails bilateral PAIN ELICITED WITH ROM: [...] urgent appointment. Otherwise, patient can follow-up as scheduledfor diabetic nail care or at least yearly for a diabetic foot check and to be fitted for a new pairof DM shoes and inserts. Hammertoe: 1. Discussed with patient the findings of the examination and further options for treatment including conservative and surgical treatment of the deformities. 2. Specifically discussed with the patient conservative treatment including shoe gear modification,stretching of the shoes, corrective splinting which may [...] the shortened recovery time. documented in this encounterWright Memorial [id number] [id number] Mirta Welsh 1950 F Date Provider Department Center 04/06/2024 [id number] No family history on fileSumma Health09-17-2024 Note Occupational Therapy Orthosis/Splint Evaluation Patient Name: [...] services. Reason for plan status: Patient achieved goalsSumma Health09-17-2024 NoteOrthopedic Surgery 03/25/2024 Middle Finger Extensor Tendon Repair [...] see her back in the clinic 4 wks.[facility] 03-25-2024 NotePatient: Mirta Welsh Procedure Summary Date: 03/25/24 Room / Location: [facility] OR [address] [place] [address] [facility] OR Anesthesia Start: 1218 Anesthesia Stop: 1314 Procedure: MIDDLE FINGER EXTENSOR [...] PACU per anesthesia protocol. No notable events documented.[facility]09-05-2024 Note Patient: Mirta Welsh Procedure Summary Date: 03/25/24 Room / Location: [address] OR Anesthesia Start: 1217 Anesthesia Stop: 1314 Procedure: MIDDLE FINGER EXTENSOR TENDON REPAIR (Right: Middle Finger) Diagnosis: Tendon pain (Tendon pain [M79.10]) Surgeons: Deniz Roldan MD Responsible Provider: Thompson Ospina MD Anesthesia Type: MAC ASA Status: 2 Anesthesia Post Transport Note Transport to: [facility] PACU O2 Route: room air Patient Monitor: direct observation Transport: uneventful Patient condition is: stable Comments: Patient arousable, VSS, SV well, report to RNUnUniversity [facility]als [facility]09-05-[facility] NotePatient: Mirta Welsh Procedure Information Date/Time: 03/25/24 1200 Procedure: MIDDLE FINGER EXTENSOR TENDON REPAIR (Right: Middle Finger) - REQUEST AFTERNOON START Location: [address] OR Surgeons: Deniz Roldan MD Relevant [...] products. Plan discussed with attending. Additional Equipment RequestsSum[facility] Health08-30-2024 Note Orthopedic Surgery 02/09/2024 I&d, Pinning Right [...] if there is any infection that is present.[facility]08-29-2024 History of Present illness Narrative* Augusta Mcnair DPM - 03/18/2024 1:30 PM EDT Images from the original note were not included. HPI: Patient presents today to for DM shoe recheck. Shoes were ordered from Dr. Alonso, style melchor black 8.5W. Insoles were ordered from Dr. Alonso. Required paperwork has been completed including needed documentation from the patient's PCP/Engineer System Administrator. Pt states the new shoes feel like [...] left fourth and fifth digits, slight pain tothe ingrown toenails bilateral PAIN ELICITED WITH ROM: [...] patients diabetes. The shoes were fitted with xhhlzk-ecyidqyas-bomotkh custom insoles. Their purpose is to allow extra depth and to accommodate the patientsanatomy and deformity to prevent ulceration, irritation, or other complications associated with thepatients medical history. Use of rotating new pair of insoles was discussed. Proper use and care were reviewed. They are able to ambulate without distress in shoes and insoles. The diabetic shoes fitwell when sized to the patients feet. The [...] recheck or as scheduled. documented in this encounterWright Memorial [id number] History of Present illness Narrative* Alecia Antony OT - 03/18/2024 12:00 PM EDT Occupational Therapy Occupational Therapy Treatment Visit Patient Name: Mirta Welsh Today's Date: 03/18/2024 Linked Episodes Type: Episode: Status: Noted: Resolved: Last update: Updated by: Occupational Therapy R MF dislocation Active 03/12/2024 03/18/2024 1:11 PM Alecia Antony OT Comments: Visit number: 10/05 Timed Code Treatment minutes: 61 Total Treatment Time: 61 Subjective Pain: 2/10. It has remained swollen. I emailed my PCP and other than that I am on that antibioticfor infection but something is not right. It [...] Encouraged patient to call orthopedic doctor in orderto receive an appt for him to look [...] in order to return to I/ADL tasks atdischarge. P: Continue with POC, progress per toleration. documented in this encounterWright Memorial [id number] History of Present illness Narrative* Alecia Antony OT - 03/15/2024 9:00 AM EDT Occupational Therapy Occupational Therapy Treatment Visit Patient Name: Mirta Welsh Today's Date: 03/15/2024 Linked Episodes Type: Episode: Status: Noted: Resolved: Last update: Updated by: Occupational Therapy R MF dislocation Active 03/12/2024 03/15/2024 11:26 AM Alecia Antony OT Comments: Visit number: 09/07 Timed Code [...] POC, progress per toleration. documented in this encounterWright Memorial HospitalAuwvxryjvt53-02-1348 History of Present illness Narrative* Alecia Antony OT - 03/12/2024 12:00 PM EDT Occupational Therapy Occupational Therapy Evaluation Visit Patient Name: Mirta Welsh Today's Date: 03/12/2024 Linked Episodes Type: Episode: Status: Noted: Resolved: Last update: Updated by: Occupational Therapy R MF dislocation Active 03/12/2024 03/12/2024 12:22 PM Alecia Antony OT Comments: Visit number: 08/07 Subjective Interim History: 73 y/o female presents with chief complaint of limited ROM and pain of the R LF following dx of open dislocation of interphalangeal joint of R hand s/p surgical pinning of PIP joint.Per patient pins were removed Friday03/10/24. The finger [...] for light strengthening and ROM at discharge. Correction Goals: PRWHE Pain Score < 10/50 ( IE: 49/50) PRWHE Functional Score < 10/100 ( IE: 91/100 ) Increase R LF PEREZ to at least 80% pain free at discharge. ( IE: 30%) Pt to increase business data analyst strength by 10# and LP by 2# [...] Please sign below. Date: documented in this encounterWright Memorial [id number] NoteOrthopedic Surgery 02/09/2024 I&d, Pinning Right Long Finger [...] make sure she is getting back to normal.[facility]08-16-2024 Telephone encounter Note* Telephone Encounter - Eloisa Mckenzie - 03/05/2024 2:59 PM EDT Patient called for PT recommendation. Patient dislocated finger and had to have sx to reattach. [place] in [place]. She has to do physical therapy and the doctor is in [place]. Patient would like to know if you recommend anyone near the [facility] for PT? Please advise [phone]. Wright [facility] [id number] Miscellaneous Notes* Telephone Encounter - Eloisa Mckenzie - 03/05/2024 2:59 PM EDT Patient called for PT recommendation. Patient dislocated finger and had to have sx to reattach. Thedoctor she is seeing is in [place]. She has to do physical therapy and the doctor is in [place]. Patient would like to know if you recommend anyone near the [facility] for PT? Please advise [phone]. documented in this encounterWright Memorial HospitalSltgtxrtxn78-89-0194 NoteOrthopedic Surgery 02/09/2024 I&d, Pinning Right Long Finger [...] a prescription for Keflex just to be safe..[facility]07-22-2024 NoteClinician attempted to provide JOSIAH brief intervention regarding alcohol use. Pt denies drinking regularly- states she does not drink weekly or even monthly. Pt reports she had a drink last weekend and could not remember the last time she drank prior to that. Per pt report, she appears to be drinking within recommended health limits. 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 No Screened by [facility]. Per SS consult order for HHC/wound care, sent referral to [facility] await reply. Per Audit C gave pt chemical dependency referral list, [facility] treatment resources and rethinking drinking resource. Await reply from [facility]. Pt has DC orders. [facility] reported pt is teachable for her wound care. Pt was Dc'd yesterday to home. Received call from [facility] awaiting AVS/DC order. Faxed AVS to [facility] this morning. They will arrange start of care. [facility]07-22-2024 NotePatient: Mirta Welsh Procedure Summary Date: 02/09/24 Room / Location: [address] OR Anesthesia Start: 1328 Anesthesia Stop: 1429 [...] PACU per anesthesia protocol. No notable events documented.[facility]07-22-2024 Note Pt off floor. Clinician will attempt JOSIAH intervention at another timeUnUniversity Hospitals [facility] Medical Center07-22-2024 NotePatient: Mirta Welsh Procedure Information Date/Time: 02/09/24 1530 Procedure: I&D HAND/WRIST (Right: Hand) Location: [address] OR Surgeons: Deniz Roldan MD Relevant [...] patient. Plan discussed with CAA. Additional Equipment RequestsUnUniversity Hospitals Portage Medical Center07-22-2024 Note 02/09/24 0952 Admission Assessment Questions Verify insurance with patient Yes Do you understand medical disease or what brought you into the hospital? Yes Who is your current PCP? No PCP listed. Nicholas Mcgee [facility] updated in [employer] Can I schedule a follow up appointment for you at the time of discharge? Yes Do you understand why you are taking your current medications? Yes Are you taking your medications as prescribed? Yes Did patient provide teach back? Yes Pharmacy Bedside Delivery Status Interested Does the patient have a showcase trimmer assigned to them through their insurance? No [...] you able to send link and activate [email or web address]? [email or web address] already active [facility]07-22-2024 NotePhysical Therapy Name: Mirta Welsh Date of : [...] Check No Charge Time attempted: 85Mac Hardwick, PTSumma Health07-22-2024 Note Attestation signed by Deniz Roldan MD [...] after procedure. Toma Grover MD Orthopedic Surgery, PGY-1[facility]07-22-2024 Note Attestation signed by Deniz Roldan MD [...] her regarding conservative and operative options including risks/benefits/alternatives/indications, the patient is agreeable to surgical intervention. [...] Daniel MD Orthopaedic Surgery, PGY-2 Ortho Pager [phone] 02/09/24 6:57 AM I am available via [employer] 6a-6p. May contact the on-call resident with any concerns via the Orthopaedic pager at any time.[facility]07-21-2024 NoteHPI No chief complaint on file. Initial evaluation completed by Dr. Herzog at 1845. Mirta Welsh is a 73 y.o. y/o female presenting to the ED with c/o open fracture of right middle finger. Pt is a transfer from [place] for an orthopedic consult concerned for an [...] Procedure Abnormality Status --------- ------ CBC auto differential[[id number]] Normal Final result Please view results for [...] pneumothorax or pleural effu (more content not included)...[facility]02-15-2024 History of Present illness Narrative* Meme Breen, PT - 09/04/2023 11:15 AM EST Physical Therapy Physical Therapy Evaluation Visit Patient [...] initial HEP. Pain/stiffness throughout spine up to 10 today. Objective: Examination performed on 09/01/23 The [...] side-bending 15 degrees. Hip extension was 10 degrees.90/90 HS length test demonstrated moderate trunk and [...] with sitting and lying consistent with lumbar stenosiscondition. The patient's Back Index scored 56 indicative [...] strength, ergonomic, and postural program to assist parts counterman management (15 Min) Therapeutic Activity: Exercises to improve dynamic activities, functional tasks, functional mobility to return to prior activity level (PRN) Neuromuscular Re-education: Neuromuscular reeducation including muscle facilitation, ergonomic and postural training, core strengthening (10 Min- including supine and side-lying MET 10 second hold andrelax program 3-5 repetitions in standard cervical/lumbar spinal [...] core and LE strength improvements to 4+/5 in4-8 weeks The patient to score <20% residual [...] exacerbated by moderate levoscoliosis and thoracic kyphosis Janet Ang PA-C. Reports reported as 25% improved [...] below. 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 She [...] urgent evaluation. ISABELLE Phelps documented in this encounterWright Memorial HospitalKiioowepsp07-37-2587 Evaluation note* Encounter Date Diagnosis Assessment Notes Treatment Notes Treatment Clinical Notes Jun, Obstructive sleep apnea (ICD-10 - G47.33) She is using and benefiting from treatment. However I think we can do better overall. She does havedry mouth with her nasal pillows and likely has mouth leak. This could be responsible for her breakthrough snoring and breakthrough fatigue, although it is also possible that the apnea itself may notbe optimally controlled. After extensive discussion we will try several interventions. First, we will get a download from her current 11 cm fixed pressure setting. Second,I will also get her an orderfor a chinstrap to see if that can resolve her dry mouth. She had previously failed fullface mask. Third we will readjust settings to minimum 8 maximum 12 auto CPAP and get a download on that new setting. She will return in 2 months or so and will call sooner if problems Jun,MI 26.0-26.9,adult (ICD-10 - Z68.26)Weight reduction generally has positive effects on sleep apnea. She has lost weight since her studyin 2018, and reports a drop of about 40 pounds since then. It is unlikely that her current apnea severity would be over 15 after this weight loss, since it was only 13 before the weight loss. It doesnot seem likely she would therefore qualify for [facility] Jun,ry mouth (ICD-10 - R68.2)Her dry mouth is likely due to leakage. I am hoping a chinstrap resolves this Jun,OtherCall if any questions or problems. Patient is advised to work on healthy diet choices and appropriate servings, weight control, regular exercise as directed, and reduce fat intake. Use machine regularly, and keep up with mask changes as needed. Call if problems with mask toleration, increased sleepiness, or poor response to treatment. . [employer] Other 12-08-2022 Evaluation note* Encounter Date Diagnosis Assessment Notes Treatment Notes Treatment Clinical Notes Jun, Tear of right supraspinatus tend on (ICD-10 - M75.101) Jun,ontusion of right shoulder, initial encounter (ICD-10 - [...] rotator cuff injury or other intra-articular injury. Jun,Full thickness tear of right subscapularis tendon, initial encounter (ICD-10 - S46.811A) Jun,ubluxation of tendon of long head of biceps (ICD-10 - S43.003A) Jun,cute pain of right shoulder (ICD-10 - M25.511) [employer] Other 09-13-2022 NoteHISTORY: Bone density screening. COMPARISON: [...] and signed by Abhi Jefferson on 04/02/[address] [facility]08-22-2022 Evaluation note* Encounter Date Diagnosis Assessment Notes Treatment Notes Treatment Clinical Notes Feb, Displaced fracture o f lateral end of right clavicle, subsequent encounter for fracture with routine healing (ICD-10 - S42.031D) Feb,Tear of right supraspinatus tendon (ICD-10 - M75.101)MRI reviewed with patient as suprapinatus tear, subscapularis tear, and biceps subluxation. Discussed treatment as living with condition versus surgical treatment of arthroscopy with open rotator cuff repair or reverse total shoulder arthroplasty. Advised based on the appearance of the rotator cuffon MRI, there is some increased concern for [...] it becomes unrepairable. Formal therapy order provided. Feb,Full thickness tear of right subscapularis tendon, initial encounter (ICD-10 - S46.811A) Feb,ubluxation of tendon of long head of biceps (ICD-10 - S43.003A) Feb,re-op exam (ICD-10 - Z01.818) [employer] Other 08-02-2022 Evaluation note* Encounter Date Diagnosis Assessment Notes Treatment Notes Treatment Clinical Notes Feb, Displaced fracture o f lateral end of right clavicle, subsequent encounter for fracture with routine healing (ICD-10 - S42.031D) Xrays were reviewed with patient in detail. As far as the clavicle fracture, xrays show good healing. Feb,Internal derangement of right shoulder (ICD-10 - M24.811)I have a high suspicion of a rotator cuff tear based on the history of symptoms and physical exam findings. An MRI will be necessary to plan further treatment options and potential surgey. [employer] Other 05-06-2022 NoteHISTORY: Dizziness, headaches PROCEDURE: [place] VCT 64. Without IV contrast, images of [...] signed by Donald Jeter on 11/23/2021 1544[facility] Wlroirhzms89-13-2509 History general Narrative - Reported* Type Description Date Medical History type II diabetes Medical Historyno thyroidSurgical Historyleft wrist11/2009Surgical Historyknee [id number] Csnrtehbwaatylufxnr31/2013Surgical Historythyroidectomy, completeHospitalization Historysee above [employer] Other 05-01-2010 History general Narrative - Reported* Type Description Date Medical History type II diabetes Medical Historyno thyroidMedical HistoryObstructive sleep apneaMedical History GERDSurgical Historyleft wrist11/2009Surgical Historyknee [id number] Surgical Hjhwagsmwoejugfdxkh32/2013Surgical Historythyroidectomy, complete Hospitalization Historysee above [employer] Other Evaluation noteNo assessment information available [facility] Work Phone: Evaluation note* Diagnosis Acute [...] Type II diabetes mellitus with neurological manifestations ([facility]/HCC)- Primary Type II or unspecified type diabetes [...] Type II diabetes mellitus with neurological manifestations ([facility]/HCC)- Primary Type II or unspecified type diabetes [...] in this encounter [facility]* Diagnosis Age related osteoporosis, unspecified pathological fracture presence ([facility]/HCC)- Primary Encounter for subsequent annual wellness visit (AWV) in Medicare patient ACP (advance care planning) Other specified counseling Major depressive disorder, single episode, severe without psychotic features (HCC) (CMS/HCC) Primary hypertension (CMS/HCC) Unspecified essential hypertension Postoperative hypothyroidism (CMS/HCC) Postsurgical hypothyroidism Gastroesophageal reflux disease, unspecified whether esophagitis present Obstructive sleep apnea syndrome Obstructive sleep apnea (adult) (pediatric) Primary osteoarthritis involving multiple joints Type 2 diabetes mellitus with other specified complication, without long-term current use of insulin (CMS/HCC) Irritable bowel syndrome with constipation Irritable bowel syndrome Postmenopausal Asymptomatic postmenopausal status (age-related) (natural) Encounter for screening mammogram for malignant neoplasm of breast Mixed hyperlipidemia (CMS/HCC) Mixed hyperlipidemia Primary osteoarthritis of both knees documented in this encounter [facility]* Diagnosis Primary osteoarthritis of right knee- Primary Primary osteoarthritis of left knee Herpes Herpes simplex without mention of complication documented in this encounter [facility] HealthcareEvaluation note* Diagnosis Primary osteoarthritis of both knees- Primary documented in this encounter [facility]* Diagnosis Pressure injury of buttock, stage 2, unspecified laterality (CMS/HCC)- Primary Acute non-recurrent pansinusitis Side effect of medication documented in this encounter [facility]* Diagnosis Pressure injury of buttock, stage 2, unspecified laterality (CMS/HCC)- Primary documented in this encounter [facility]* Diagnosis Melanocytic nevus of trunk- Primary Benign neoplasm of skin of trunk, except scrotum History of SCC (squamous cell carcinoma) of skin Personal history of other malignant neoplasm of skin Lichen planopilaris Lichen planus Seborrheic keratosis Lentigines Actinic keratosis Rash and other nonspecific skin eruption documented in this encounter [facility]* Diagnosis Type 2 diabetes mellitus with other specified complication, without long-term current use of insulin- Primary Postoperative hypothyroidism (CMS/HCC) Postsurgical hypothyroidism Age related osteoporosis, unspecified pathological fracture presence (CMS/HCC) Primary osteoarthritis involving multiple joints Primary hypertension (CMS/HCC) Unspecified essential hypertension Irritable bowel syndrome with constipation Irritable bowel syndrome Amputation of right middle finger Low vitamin D level documented in this encounter [facility]* Diagnosis Acute eczematoid otitis externa of both ears- Primary documented in this encounter [facility] HealthcareHospital Discharge instructions Additional Instructions DR. SALTER'S POST OP INSTRUCTIONS Take prescribed pain medication as directed and as needed to control your post- operative pain. -In addition to the prescribed medication, you may take ibuprofen (Advil, Motrin) or naproxen (Aleve/Naprosyn) to help control pain and decrease swelling. -DO NOT TAKE ibuprofen/Naprosyn/naproxen if you have a history of bleeding ulcer, are taking anticoagulation medication (Coumadin/warfarin, Eliquis, Xarelto, Plavix, Lovenox), if you have had a history of gastric bypass surgery, or if you have a history of kidney disease. Elevate the operative area as much as possible, using at least 2-3 pillows, keeping the hand higher than the elbow. Keep ice at the operative area as much as possible. It takes longer than 20 minutes for the cold to penetrate the bandages, so leave the ice bag or cold pack in place until the ice melts, then it is time to change to a fresh ice bag or cold pack. -Elevation and ice help to lessen the swelling post-operatively which helps to lessen pain so that you will need to take less pain medication, as well as maintaining better range of motion and function of your hand (more swelling, less movement). You may wiggle your fingers, bending, flexing, and move them to decrease stiffness. You may use your hands for light activities of 2-5 lbs. This is lifting your coffee cup, using your silverware, and typing on a computer or tablet. -Do NOT perform strenuous lifting or lift greater than 10 lbs until 4-6 weeks after surgery to minimize exacerbation of pain at the surgery site. You may remove your dressing on the third day after surgery, and get your surgical incision wet in the shower or when washing your hands with soap and water. -DO NOT soak your incision or submerge it under standing water such as dishwater or bathtub. -DO NOT apply perfumed moisturizers or ointments unless otherwise instructed by your physician. -Washing your incision gently with soap and water on a daily basis, helps to rid your skin of bacteria and decrease the risk of wound infections. -After showering or washing your hands, pat the incision dry, and keep covered with a clean dry gauze bandage. -You may apply Bacitracin, Neosporin, or generic triple antibiotic ointment to incision if you would like Take vitamin C 500 mg by mouth daily to help skin and incision heal Take antibiotics as directed to decrease risk of infection after surgery [facility] Work Phone: Reason for referral (narrative)* Consultation (Routine) - AuthorizedSpecialtyDiagnoses / ProceduresReferred By Contact Referred To ContactPhysical Therapy Diagnoses Acute left-sided low back pain without sciatica Sacroiliac joint pain Procedures OK OFFICE/OUTPATIENT [facility] 60 MINUTES Joel Ang PA [address] [facility] [address] [place] [address] Meme Breen, PT [address] [place] [address] Referral IDStatusReasonStart DateExpiration DateVisits RequestedVisits [id number] Consult and Treat * Consultation (Routine) - Pending ReviewSpecialtyDiagnoses / ProceduresReferred By ContactReferred To ContactPain Medicine Diagnoses Acute left-sided low back pain without sciatica Procedures OK OFFICE/OUTPATIENT [facility] 60 MINUTES Joel Ang PA [address] [address] Roxane Rockwell MD [address] [place] [address], [address], [place] [address] Referral IDStatusReasonStart DateExpiration DateVisits RequestedVisits [id number] Review Specialty Services Required Scheduling Instructions Referral to Dr. Coburn @ [facility]- Possible Lt SI inj; please call pt to schedule [facility] HealthcareReason for referral (narrative)No reason for referral information availableSelect Medical [facility] Work Phone: [facility] Narrative* Rehabilitation - Outpatient (Routine) - AuthorizedSpecialtyDiagnoses / ProceduresReferred By ContactReferred To ContactOccupational Therapy / Physical Therapy Diagnoses Dislocation of unspecified interphalangeal joint of unspecified finger, subsequent encounter Unspecified open wound of unspecified finger without damage to nail, subsequent encounter Procedures OK OCCUPATIONAL THERAPY EVALUATION Deniz Roldan MD [address] [place] [id number] Phone: tel: fax: Alecia Antony, OT [address] [place] [address] Phone: tel: fax: Referral IDStatusReasonStart DateExpiration DateVisits RequestedVisits [id number]/28/20244/ [facility] N[facility]* Rehabilitation - Outpatient (Routine) - AuthorizedSpecialtyDiagnoses / ProceduresReferred By ContactReferred To ContactOccupational Therapy / Physical Therapy Diagnoses Dislocation of unspecified interphalangeal joint of unspecified finger, subsequent encounter Unspecified open wound of unspecified finger without damage to nail, subsequent encounter Procedures OK OCCUPATIONAL THERAPY EVALUATION Deniz Roldan MD [address] [place] [phone] Phone: tel: fax: VernellAlecia cuevas, OT [address] [place] [address] Phone: tel: fax: Referral IDStatusReasonStart DateExpiration DateVisits RequestedVisits [id number]/28/202412/ [facility] Narrative* Rehabilitation - Outpatient (Routine) - AuthorizedSpecialtyDiagnoses / ProceduresReferred By ContactReferred To ContactOccupational Therapy / Physical Therapy Diagnoses Dislocation of unspecified interphalangeal joint of unspecified finger, subsequent encounter Unspecified open wound of unspecified finger without damage to nail, subsequent encounter Procedures OK OFFICE/OUTPATIENT [facility] MDM 60 MINUTES OK THERAPEUTIC PX 1/> AREAS EACH 15 MIN EXERCISES OK MANUAL THERAPY TQS 1/> REGIONS EACH 15 MINUTES PHYS/OCC THERAPY SS Deniz Roldan MD [address] [facility] [place] [address] Phone: tel: fax: Alecia Antony, OT [address] [place] [address] Phone: tel: fax: Referral IDStatusReasonStdonaldson DateExpiration DateVisits RequestedVisits [id number]/1/20253/ [facility] Narrative* Rehabilitation - Outpatient (Routine) - AuthorizedSpecialtyDiagnoses / ProceduresReferred By ContactReferred To ContactOccupational Therapy / Physical Therapy Diagnoses Dislocation of unspecified interphalangeal joint of unspecified finger, subsequent encounter Unspecified open wound of unspecified finger without damage to nail, subsequent encounter Procedures OK OFFICE/OUTPATIENT NEW HIGH MDM 60 MINUTES OK THERAPEUTIC PX 1/> AREAS EACH 15 MIN EXERCISES OK MANUAL THERAPY TQS 1/> REGIONS EACH 15 MINUTES PHYS/OCC THERAPY SS Deniz Roldan MD [address] [place] [address] Phone: tel: fax: Alecia Antony, OT [address] [place] [address] Phone: tel: fax: Referral IDStatusReasonStdonaldson DateExpiration DateVisits RequestedVisits [id number]/1/202512/[id number] [facility] Chief Complaint and Reason for Visit Chief Complaint S42.031A s42.031d m24.811 MEDICARE/tear of right supraspinatus Chief Complaint MEDICARE/tear of rig ht supraspinatus Chief Complaint R01.1 Chief Complaint MEDICARE/low back pa in Chief Complaint Admit Date samantha/ annual August 05, 2024 1 1:24am Chief Complaint Admit Date samantha/ annual August 05, 2024 1 1:24am M79.641 - Pain in right hand September 22, 2024 2:17pm 2ND OPINION PIP JOINT RIGHT LONG FINGER September 22, 2024 2:55pm Reason for Visit Admit Date SAMANTHA on CPAP August 05, 2024 1 1:24am Flexion contracture of joint of right best nd September 22, 2024 2:55pm Chief Complaint Admit Date samantha/ annual August 05, 2024 1 1:24am M79.641 - Pain in right hand September 22, 2024 2:17pm 2ND OPINION PIP JOINT RIGHT LONG FINGER September 22, 2024 2:55pm Contracture October 04, 2024 2:5 6pm Chief Complaint Admit Date samantha/ annual August 05, 2024 1 1:24am M79.641 - Pain in right hand September 22, 2024 2:17pm 2ND OPINION PIP JOINT RIGHT LONG FINGER September 22, 2024 2:55pm Contracture October 04, 2024 2:5 6pm Contracture October 18, 2024 7:1 3am Chief Complaint Admit Date samantha/ annual August 05, 2024 1 1:24am M79.641 - Pain in right hand September 22, 2024 2:17pm 2ND OPINION PIP JOINT RIGHT LONG FINGER September 22, 2024 2:55pm Contracture October 04, 2024 2:5 6pm Contracture October 18, 2024 7:1 3am Contracture October 18, 2024 8:3 2pm 1 wk post op October 27, 2024 1:24 pm Reason for Visit Admit Date SAMANTHA on CPAP August 05, 2024 1 1:24am Flexion contracture of joint of right best nd September 22, 2024 2:55pm Flexion contracture of joint of right best nd October 27, 2024 1:24pm Other specified postprocedural states Ap ril 2024 1:24pm Chief Complaint Admit Date samantha/ annual August 05, 2024 1 1:24am M79.641 - Pain in right hand September 22, 2024 2:17pm 2ND OPINION PIP JOINT RIGHT LONG FINGER September 22, 2024 2:55pm Contracture October 04, 2024 2:5 6pm Contracture October 18, 2024 7:1 3am Contracture October 18, 2024 8:3 2pm 1 wk post op October 27, 2024 1:24 pm 1 WEEK PER CRC November 03, 2024 11: 25am Reason for Visit Admit Date SAMANTHA on CPAP August 05, 2024 1 1:24am Flexion contracture of joint of right best nd September 22, 2024 2:55pm Flexion contracture of joint of right best nd October 27, 2024 1:24pm Other specified postprocedural states Ap ril 2024 1:24pm Flexion contracture of joint of right best nd November 03, 2024 11:25am Other specified postprocedural states Ap ril 2024 11:25am Chief Complaint Admit Date M79.641 - Pain in right hand September 22, 2024 2:17pm 2ND OPINION PIP JOINT RIGHT LONG FINGER September 22, 2024 2:55pm Contracture October 04, 2024 2:5 6pm Contracture October 18, 2024 7:1 3am Contracture October 18, 2024 8:3 2pm 1 wk post op October 27, 2024 1:24 pm 1 WEEK PER CRC November 03, 2024 11: 25am 3 WEEKS November 24, 2024 2:28pm Reason for Visit Admit Date Flexion contracture of joint of right best nd September 22, 2024 2:55pm Flexion contracture of joint of right best nd October 27, 2024 1:24pm Other specified postprocedural states Ap [facility] 2024 1:24pm Flexion contracture of joint of right best nd November 03, 2024 11:25am Other specified postprocedural states Ap ril 2024 11:25am Flexion contracture of joint of right best nd November 24, 2024 2:28pm Other specified postprocedural states Ma y 2024 2:28pm Chief Complaint Admit Date 4-6 wks January 05, 2025 10:2 0am M25.552 - Pain in left hip M25.562 - Shantal n in left March 02, 2025 12:38pm NEW LT HIP AND LT KNEE PAIN NX March 022024 2:26pm Reason for Visit Admit Date Flexion contracture of joint of right best nd January 05, 2025 10:20am Other specified postprocedural states Ju ne 2024 10:20am Primary osteoarthritis of left hip Augus t 2024 2:26pm Primary osteoarthritis of left knee Augu st 2024 2:26pm Family History No Family History Records Found Relationship Condition Age at Onset Recorded Date/T christie father Vaz's esophagus Unknown Not SpecifiedDiabetes mellitusUnknown Relationship Condition Age at Onset Recorded Date/T christie father Vaz's esophagus Unknown motherDiabetes mellitusUnknownbrotherType 2 diabetes mellitusUnknownfather Malignant neoplasmUnknownDeceasedUnknownType 1 diabetes mellitusUnknown Relationship Condition Age at Onset Recorded Date/T christie father Vaz's esophagus Unknown motherDiabetes mellitusUnknownbrotherType 2 diabetes mellitusUnknownfather Malignant neoplasmUnknownDeceasedUnknownType 1 diabetes mellitusUnknownbrother Diabetes mellitusUnknownMalignant neoplasmUnknownHypertensionUnknownsister Malignant neoplasmUnknownsisterDiabetes mellitusUnknown Relationship Condition Age at Onset Recorded Date/T christie father Vaz's esophagus Unknown DeceasedUnknownMalignant neoplasmUnknownmotherDiabetes mellitusUnknownbrother Diabetes mellitusUnknownHypertensionUnknownMalignant neoplasm of prostateUnknown sisterMalignant neoplasm of thyroid glandUnknownsisterDiabetes mellitusUnknown Advance Directives No Advanced Directives Records Found Advance Directive Response Recorded Date/ Time Advance Directives No May 12, 2017 5:01pm Advance Directive Response Recorded Date/ Time Advance Directives No May 12, 2017 4:01pm Code StatusDate ActivatedDate InactivatedCommentsFull Code07/02/2023 10:49 AM Code StatusDate ActivatedDate InactivatedCommentsFull Code07/02/2023 10:49 AM Date ActivatedDate QlctkpgkppsFaeruddq93/13/2023 10:49 AMDate ActivatedDate KdnyxsejnpmMiegpfml55/13/2023 10:49 AM Summary Purpose Additional Source Comments REASON FOR VISIT (unrecogniz ed section and content) ReasonCommentsPainSpecialtyDiagnoses / ProceduresReferred By ContactReferred To ContactPhysical Therapy Diagnoses Acute left-sided low back pain without sciatica Sacroiliac joint pain Procedures OK OFFICE/OUTPATIENT NEW HIGH MDM 60 MINUTES Joel Ang, PA [address] [place] [address] Meme Breen, PT [address] [facility] [place] [address] Referral IDStatusReasonStart DateExpiration DateVisits RequestedVisits [id number] Consult and Treat /[id number] mos ov rev labDenies any problems. Having pain in the right middle finger using tylenol and advil with good results.Reason Onset EcgyRceuaxyeUC72/28/2024Shdelvis had called and lm noting she is ready to re- do OT on her R finger in [place].fu4Called her back to inform a new referral is needed, per Alecia, re: sx. She said she will contactthe referring provider and request referral to be faxed over. I told her I would call back lauren to schedule.ReasonOnset GxirDjwlmfogCQ81/16/2024SpecialtyDiagnoses / ProceduresReferred By ContactReferred To ContactOccupational Therapy / Physical Therapy Diagnoses Dislocation of unspecified interphalangeal joint of unspecified finger, subsequent encounter Unspecified open wound of unspecified finger without damage to nail, subsequent encounter Procedures OK OCCUPATIONAL THERAPY EVALUATION Deniz Roldan MD [address] [place] [address] Alecia Antony, BEKAH [address] [place] [address] Referral IDStatusReasonStart DateExpiration DateVisits RequestedVisits [id number] IDStatusReasonStart DateExpiration DateVisits RequestedVisits [id number]/23/2024 [id number] IDStatusReasonStart DateExpiration DateVisits Requested Visits [id number]/23/20242/[id number] month follow upPt is being seen today for her 4 month follow up, MWV and managment of her chronic conditions. Pt had lab work done in preparations for todays visit, results and recommendations will be reviewed withthem. Pt is due for flu vaccine and will be offered at this time. Pt is overdue for MMG.Medicare Annual Wellness Visit SubsequentSinus ProblemPt states she has thick clear post nasal drip, onset x 1 month. She is always clearing throat.Knee PainShe would like to discuss possibly getting knee injections again, LT.dicuss medicationWould like to discuss possibly getting Venlafaxine 75 mg at night.ReasonCommentsknee injectionsPt presents B/L knee synojoynt injections today #2ReasonCommentsWound InfectionReasonCommentsWound CheckReasonCommentsSkin CheckReasonComments4 month follow upPt is being seen today for her 4 month follow up and managment of her chronic conditions. Pt had lab work done in preparations for todays visit, results and recommendations will be reviewed with them.ReasonCommentsears itching Care Teams (unrecognized sec tion and content) Team Status: Inactive Member Role Status Dates Jean Pierre Kim DO Primary Care Provider Active Damián Kelsey ProviderActive Team Status: Active Member Role Status Dates Jean Pierre Kim DO Primary Care Provider Active Damián Kelsey ProviderActive Team Status: Active Member Role Status Dates Jean Pierre Kim DO Primary Care Provider Active Team Status: Inactive Member Role Status Dates Jean Pierre Kim DO Primary Care Provider Active Ning Valladares NP-Moisés ProviderActive Team Status: Inactive Member Role Status Dates Jean Pierre Kim DO Primary Care Provider Active ISABELLE Wheeler-Marijatenjoellen ProviderActiveTeam MemberRelationshipSpecialty Start DateEnd Date Jean Pierre Kim DO [address] [place] [address] PCP - [facility]CO [facility]12/12/22 Jean Pierre Kim DO [address] [place] [address] PCP - GeneralInternal Medicine08/21/23 Meme Gong MD [address] [place] [address] Referring [facility]SCou[facility]07/02/23Team MemberRelationshipSpecialtyStart DateEnd Date Jean Pierre Kim DO [address] [place] [address] PCP - ACO [facility]12/12/22 Jean Pierre Kim DO [address] [place] [address] PCP - GeneralInternal [facility]08/21/23 Meme Gong MD [address] [place] [address] Referring [facility]07/02/23Te MemberRelationshipSpecialtyStart DateEnd Date Jean Pierre Kim DO [address] [place] [address] PCP - ACO [facility]12/12/22 Jean Pierre Kim DO [address] [place] [address] [facility]08/21/23 Meme Gong MD [address] [place] [address] Referring [facility]07/02/23Te MemberRelationshipSpecialtyStart DateEnd Date Jean Pierre Kim DO [address] [place] [address] PCP - [facility]12/12/22 Jean Pierre Kim DO [address] [place] [address] [facility]08/21/23 Meme Gong MD [address] [place] [address] Referring [facility]07/02/23Te MemberRelationshipSpecialtyStart DateEnd Date Jean Pierre Kim DO [address] [place] [address] PCP - ACO [facility]12/12/22 Jean Pierre Kim DO [address] [place] [address] [facility] - [facility]08/21/23 Meme Gong MD [address] [place] [address] Referring [facility]07/02/23Te MemberRelationshipSpecialtyStart DateEnd Date Jean Pierre Kim DO [address] [place] [address] PCP - [facility]12/12/22 Jean Pierre Kim DO [address] [place] [address] PCP - [facility]08/21/23 Meme Gong MD [address] [place] [address] Referring [facility]07/02/23Te MemberRelationshipSpecialtyStart DateEnd Date Jean Pierre Kim DO [address] [place] [address] PCP - ACO [facility]12/12/22 Jean Pierre Kim DO [address] [place] [address] PCP - [facility]08/21/23 Meme Gong MD [address] [place] [address] Referring [facility]07/02/23[facility] MemberRelationshipSpecialtyStart DateEnd Date Jean Pierre Kim DO [address] [place] [address] PCP - ACO [facility]12/12/22 Jean Pierre Kim DO [address] [place] [address] PCP - [facility]08/21/23 Meme Gong MD [address] [place] [address] Referring [facility]07/02/23Te MemberRelationshipSpecialtyStart DateEnd Date Jean Pierre Kim DO [address] [place] [address] PCP - ACO [facility]12/12/22 Jean Pierre Kim DO [address] [place] [address] PCP - [facility]08/21/23 Meme Gong MD [address] [place] [address] Referring [facility]07/02/23Te MemberRelationshipSpecialtyStart DateEnd Date Jean Pierre Kim DO [address] [place] [address] [facility] - [facility]12/12/22 Jean Pierre Kim DO [address] [place] [address] [facility] - [facility]08/21/23 Meme Gong MD [address] [place] [address] Referring [facility]07/02/23Te MemberRelationshipSpecialtyStart DateEnd Date Jean Pierre Kim DO [address] [place] [address] [facility] - [facility]12/12/22 Jean Pierre Kim DO [address] [place] [address] [facility] - [facility]08/21/23 Meme Gong MD [address] [place] [address] Referring [facility]07/02/23Team MemberRelationshipSpecialtyStart DateEnd Date Jean Pierre Kim DO [address] [place] [address] PCP - [facility]12/12/22 Jean Pierre Kim DO [address] [place] [address] [facility]08/[facility]/23 Meme Gong MD [address] [place] [address] Referring [facility]07/02/23Te MemberRelationshipSpecialtyStart DateEnd Date Jean Pierre Kim DO [address] [place] [address] PCP - ACO [facility]12/12/22 Jean Pierre Kim DO [address] [place] [address] PCP - [facility]08/21/23 Meme Gong MD [address] [place] [address] Referring [facility]07/02/23Te MemberRelationshipSpecialtyStart DateEnd Date Jean Pierre Kim DO [address] [place] [address] PCP - ACO [facility]12/12/22 Jean Pierre Kim DO [address] [place] [address] [facility] - [facility]08/21/23 Meme Gong MD [address] [place] [address] Referring [facility]07/02/23Te MemberRelationshipSpecialtyStart DateEnd Date Jean Pierre Kim DO [address] [place] [address] PCP - ACO [facility]12/12/22 Jean Pierre Kim DO [address] [place] [address] PCP - [facility]08/21/23 Meme Gong MD [address] [place] [address] Referring [facility]07/02/23Te MemberRelationshipSpecialtyStart DateEnd Date Jean Pierre Kim DO [address] [place] [address] PCP - ACO [facility]12/12/22 Jean Pierre Kim DO [address] [place] [address] PCP - [facility]08/21/23 Meme Gong MD [address] [place] [address] Referring [facility]07/02/23Te MemberRelationshipSpecialtyStart DateEnd Date Jean Pierre Kim DO [address] [place] [address] PCP - [facility]12/12/22 Jean Pierre Kim DO [address] [place] [address] PCP - GeneralInternal Medicine08/21/23 Meme Gong MD [address] [place] [address] Referring [facility]SC[facility]07/02/23Te MemberRelationshipSpecialtyStart DateEnd Date Jean Pierre Kim DO [address] [place] [address] PCP - ACO [facility]12/12/22 Jean Pierre Kim DO [address] [place] [address] PCP - GeneralInternal Medicine08/21/23 Meme Gong MD [address] [place] [address] Referring [facility]07/02/23Te MemberRelationshipSpecialtyStart DateEnd Date Jean Pierre Kim DO [address] [place] [address] PCP - ACO [facility]12/12/22 Jean Pierre Kim DO [address] [place] [address] PCP - GeneralInternal Medicine08/21/23 Meme Gong MD [address] [place] [address] Referring [facility]07/02/23 Team Status: Inactive Member Role Status Dates Jean Pierre Kim DO Primary Care Provider Active Start: August 05, 2024 End: August 05ndra Sun YARD CLEANER-CAttending ProviderActiveStart: August 05, 2024 End: August 05, 2024Team MemberRelationshipSpecialtyStart DateEnd Date Jean Pierre Kim DO [address] [place] [address] PCP - ACO [facility]12/12/22 Jean Pierre Kim DO [address] [place] [address] [facility] - [facility]08/21/23 Meme Gong MD [address] [place] [address] Referring [facility]07/02/23Team MemberRelationshipSpecialtyStart DateEnd Date Jean Pierre Kim DO [address] [place] [address] PCP - [facility]12/12/22 Jean Pierre Kim DO [address] [place] [address] [facility] - [facility]08/21/23 Meme Gong MD [address] [place] [address] Referring [facility]icianSC[facility]lee [facility]07/02/23Team MemberRelationshipSpecialtyStart DateEnd Date Jean Pierre Kim DO [address] [place] [address] PCP - [facility]12/12/22 Jean Pierre Kim DO [address] [place] [address] [facility] - [facility]08/21/23 Meme Gong MD [address] [place] [address] Referring [facility]07/02/23Te MemberRelationshipSpecialtyStart DateEnd Date Jean Pierre Kim DO [address] [place] [address] PCP - [facility]12/12/22 Jean Pierre Kim DO [address] [place] [address] [facility]08/21/23 Meme Gong MD [address] [place] [address] Referring [facility]07/02/23Te MemberRelationshipSpecialtyStart DateEnd Date Jean Pierre Kim DO [address] [place] [address] PCP - [facility]12/12/22 Jean Pierre Kim DO [address] [place] [address] [facility] - [facility]08/21/23 Meme Gong MD [address] [place] [address] Referring [facility]07/02/23Te MemberRelationshipSpecialtyStart DateEnd Date Jean Pierre Kim DO [address] [place] [address] PCP - ACO [facility]12/12/22 Jean Pierre Kim DO [address] [place] [address] PCP - [facility]08/21/23 Meme Gong MD [address] [place] [address] Referring [facility]07/02/23Te MemberRelationshipSpecialtyStart DateEnd Date Jean Pierre Kim DO [address] [place] [address] PCP - ACO [facility]12/12/22 Jean Pierre Kim DO [address] [place] [address] PCP - [facility]08/21/23 Meme Gong MD [address] [place] [address] Referring [facility]07/02/23 Team Status: Active Member Role Status Dates Jean Pierre Kim DO Primary Care Provider Active Start: September 22, 2024 Leti Salter MDAttmark ProviderActiveStart: September 22, 2024 Team Status: Inactive Member Role Status Dates Jean Pierre Kim DO Primary Care Provider Active Start: September 22, 2024 End: September 22ollmargarita R Aleahyvonne , MDAttending ProviderActiveStart: September 22, 2024 End: September 22, 2024 Team Status: Inactive Member Role Status Dates Jean Pierre Kim DO Primary Care Provider Active Start: October 04, 2024 End: October 045Collmargarita R Liliana , MDAttending ProviderActiveStart: October 04, 2024 End: October 04, 2024 Team Status: Inactive Member Role Status Dates Jean Pierre Kim DO Primary Care Provider Active Start: October 18, 2024 End: October 185Collmargarita Salter , MDAttending ProviderActiveStart: October 18, 2024 End: October 18, 2024 Team Status: Active Member Role Status Dates Jean Pierre Kim DO Primary Care Provider Active Start: October 18, 2024 Leti Salter MDAttending Provider, Other ProviderActiveStart: October 18, 2024 Team Status: Inactive Member Role Status Dates Jean Pierre Kim DO Primary Care Provider Active Start: October 27, 2024 End: October 27ollmargarita R Liliana , MDAttending ProviderActiveStart: October 27, 2024 End: October 27, 2024 Team Status: Inactive Member Role Status Dates Jean Pierre Kim DO Primary Care Provider Active Start: November 03, 2024 End: November 03ollmargarita R Calvyvonne , MDAttending ProviderActiveStart: November 03, 2024 End: November 03, 2024 Team Status: Inactive Member Role Status Dates Jean Pierre Kim DO Primary Care Provider Active Start: November 24, 2024 End: November 245Collmargarita Salter , MDAttending ProviderActiveStart: November 24, 2024 End: November 24, 2024Team MemberRelationshipSpecialtyStart DateEnd Date Jean Pierre Kim DO [address] [place] [address] PCP - ACO 12/12/22 Jean Pierre Kim DO [address] [place] [address] PCP - GeneralInternal Medicine08/21/23 Meme Gong MD [address] [place] [address] Referring [facility]07/02/23Te MemberRelationshipSpecialtyStart DateEnd Date Jean Pierre Kim DO [address] [place] [address] PCP - ACO [facility]12/12/22 Jean Pierre Kim DO [address] [place] [address] PCP - [facility]08/21/23 Meme Gong MD [address] [place] [address] Referring [facility]07/02/23Te MemberRelationshipSpecialtyStart DateEnd Date Jean Pierre Kim DO [address] [place] [address] PCP - ACO [facility]12/12/22 Jean Pierre Kim DO [address] [place] [address] PCP - [facility]08/21/23 Meme Gong MD [address] [place] [address] Referring [facility]07/02/23Te MemberRelationshipSpecialtyStart DateEnd Date Jean Pierre Kim DO [address] [place] [address] PCP - ACO [facility]12/12/22 Jean Pierre Kim DO [address] [place] [address] PCP - GeneralInternal Medicine08/21/23 Meme Gong MD [address] [place] [address] Referring [facility]07/02/23Te MemberRelationshipSpecialtyStart DateEnd Date Jean Pierre Kim DO [address] [place] [address] PCP - ACO [facility]12/12/22 Jean Pierre Kim DO [address] [place] [address] [facility]/21/23 Meme Gong MD [address] [place] [address] Referring [facility]07/02/23Te MemberRelationshipSpecialtyStart DateEnd Date Jean Pierre Kim DO [address] [place] [address] PCP - ACO [facility]12/12/22 Jean Pierre Kim DO [address] [place] [address] PCP - GeneralInternal Medicine08/21/23 Meme Gong MD [address] [place] [address] Referring PhysicianSle Ahjekggx42/13/23 Team Status: Inactive Member Role Status Dates Jean Pierre Kim DO Primary Care Provider Active Start: January 05, 2025 End: January 05kim Salter MDAttending ProviderActiveStart: January 05, 2025 End: January 05, 2025 Team Status: Active Member Role Status Dates Jean Pierre Kim DO Primary Care Provider Active Start: March 02, 2025 Davi Naranjo II, MDAttending ProviderActiveStart: March 02, 2025 Team Status: Inactive Member Role Status Dates Jean Pierre Kim DO Primary Care Provider Active Start: March 02, 2025 End: March 02, 2025Robgokul Naranjo II, MDAttending ProviderActiveStart: March 02, 2025 End: March 02, 2025Team MemberRelationshipSpecialtyStart DateEnd Date Jean Pierre Kim DO [address] [address] PCP - ACO [facility]12/12/22 Davi Vincent MD [address] [address] PCP - GeneralInternal Medicine04/06/25 Meme Gong MD [address] [address] Referring [facility]Sp[facility] Ejzuyykq40/13/23 Goals (unrecognized section and content) Goals may be documented in a n alternate section INFORMATION SOURCE (unrecogn ized section and content) DATE CREATED AUTHOR 04/03/2022 [facility] [employer] DATE CREATED AUTHOR AUTHOR'S ORGANIZ ATION 06/22/2022 [facility] DATE CREATED AUTHOR AUTHOR'S ORGANIZ ATION 03/26/2023 [facility] DATE CREATED AUTHOR AUTHOR'S ORGANIZ ATION 08/09/2024 [facility] DATE CREATED AUTHOR AUTHOR'S ORGANPARDEEP ATION 03/04/2025 [facility] DATE CREATED AUTHOR AUTHOR'S ORGANPARDEEP ATION 04/08/2025 [facility] EPIC FOR RECORDS PERTAINING TO PATIENTS [...] BE BASED ON THE PRIMARY CLINICAL RECORDS. [employer] provides no warranty or guarantee of the accuracy or completeness of information in this document.
[2025-06-24 08:39] LABS: Hematocrit 45.9 % (36.0-48.0); Hemoglobin 14.6 g/dL (12.0-16.0); Immature Granulocytes Abs Auto 0.03 10^3/uL (0.00-0.03); Immature Granulocytes Pct Auto 0.4 % (0.0-0.5); Lymphocytes Absolute Auto 2.5 10^3/uL (1.2-3.8); Mean Corpuscular HGB Conc 31.8 g/dL (29.9-35.2); Mean Corpuscular Hemoglobin 30.7 pg (26.7-34.0); Mean Corpuscular Volume 96.4 fL (81.0-99.0); Platelet Count 381 10^3/uL (150-450); Red Blood Count 4.76 10^6/uL (4.20-5.40); White Blood Count 8.1 10^3/uL (4.0-11.0)
[2025-06-24 08:58] LABS: Microalbum Creatinine Ratio Ur 18.0 mg/g (0.0-29.9)
[2025-06-24 11:19] LABS: Alanine Aminotransferase 23 U/L (14-59); Albumin Globulin Ratio 1.0; Albumin Level 3.6 g/dL (3.4-5.0); Alkaline Phosphatase 101 U/L (46-116); Anion Gap 11.1; Aspartate Amino Transferase 17 U/L (15-37); Blood Urea Nitrogen 9.0 mg/dL (7.0-18.0); Calcium 8.6 mg/dL (8.5-10.1); Carbon Dioxide 30.2 mmol/L (21.0-32.0); Chloride 104 mmol/L (98-107); Estimated GFR (African America >60 (>=60 mL/min/1.73m^2); Estimated GFR (Non-African Ame >60 (>=60 mL/min/1.73m^2); Globulin 3.6 g/dL; Glucose 115 mg/dL (74-106); Potassium 4.3 mmol/L (3.5-5.1); Sodium 141 mmol/L (136-145); Total Protein 7.2 g/dL (6.4-8.2)
[2025-06-24 11:20] LABS: Cholesterol 174 mg/dL (<=200); HDL Cholesterol 61 mg/dL (40-60); Thyroid Stimulating Hormone 0.170 uIU/mL (0.358-3.740); Triglycerides 96 mg/dL (<=150); VLDL CHOLESTEROL 19.2 mg/dL
== END 2025-06-24 08:19 | disposition home or self-care (01) ==
PROVIDERS: PCP Internal Medicine; Visit Provider Internal Medicine
DX: R79.89 Other specified abnormal findings of blood chemistry (principal); E89.0 Postprocedural hypothyroidism; I10 Essential (primary) hypertension; E11.69 Type 2 diabetes mellitus with other specified complication
CPT/HCPCS: 36415; 80053; 80061; 82043; 82306; 82570; 83036; 84443; 85025